=== PATIENT | male | born 1935 | race Caucasian/White ===

== ENCOUNTER 2023-10-26 16:11 | Emergency (ER) | payer OTHER, SELFPAY ==
--- NOTE | 2023-10-26 16:14 | ED_ITS ---
HPI - General Adult General Chief complaint: Extremity Pain/Injury, Lower Stated complaint: cellulitis - right leg Time Seen by Provider: 10/26/23 16:14 History of Present Illness HPI narrative: [facility] for a check up and today he noticed redness , blistering started on his right lower leg. 88-year-old man presenting to the emergency department with concern of potential infection in the right leg. This last April has pictures of an extensive cellulitis and blistering on the right lower extremity. He is worried that this might be happening again. 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 Was at the [facility] 2 days ago for checkup and says that his blood work looked good then. Today he noticed some more redness in the lower leg and some blisters which apparently popped. He does not have any pain. He thinks he excoriated or scratched open another spot. He noted some yellow drainage on his compression stockings. No fever. No chest pain. No shortness of breath. He would be unfamiliar with any diagnosis of heart failure. Shows pictures also of extensive wound at the left knee requiring wound VAC. this ultimately healed by secondary intention it appears. In reviewing medications it looks as though he has been on long-term 5 mg daily amlodipine He does wear old compression stockings. Notes that his higher pressure compression stockings are quite a wrestling match and so he does not tend to use them. Related Data Allergies Allergy/AdvReac Type Severity Reaction Status Date / Time Mulino nut Allergy Intermediate Verified 10/26/23 16:23 animals Allergy Intermediate Uncoded 10/26/23 16:23 Review of Systems Status of ROS: Reports: 6 or more systems reviewed and unremarkable except as noted in History and below Exam Narrative: Exam Narrative: Pleasant. NAD. I find Mr. Warner semi recumbent with legs below the level of his heart. Compression stockings in place. He is breathing easily. Examination of the right leg in question there is generalized edema. Pitting. This is similar to the left leg. Large well-healed scar at the medial left knee. In the lower anterior right leg there is a less than 1 cm open area of skin/ulceration. Adjacent to this are 2 subcentimeter blisters. In her left right lower leg also with a 0.5 cm open spot of skin. There are not surrounding inflammatory changes in either location. Very faint erythema and minimal calor in a band at the lower right leg. Compression stockings are rather loose. There is circular serous staining of the white stockings consistent with location of sores as noted above. Negative Homans. Const: Vital Signs, click to edit/add: Vital Signs - 24 hr 10/26/23 16:18 Temperature 97.4 F L Pulse Rate [Pulse Oximeter] 85 Respiratory Rate 18 Blood Pressure [Ri ght Upper Arm] 137/72 Pulse Oximetry 97 Oxygen Delivery Me thod Room Air Documenting provider has reviewed patient's vital signs: yes Course Vital Signs Vital signs: Initial Vital Signs Temperature 97.4 F L 10/26/23 16:18 Temperature Source Temporal Artery Scan 10/26/23 16:18 Pulse Rate 85 10/26/23 16:18 Pulse Rhythm Regular 10/26/23 16:18 Respiratory Rate 18 10/26/23 16:18 Blood Pressure 137/72 10/26/23 16:18 Blood Pressure Mean 93 10/26/23 16:18 Blood Pressure Position Sitting 10/26/23 16:18 Pulse Oximetry 97 10/26/23 16:18 Oxygen Delivery Method Room Air 10/26/23 16:18 Vital Signs Temperature 97.4 F L 10/26/23 16:18 Pulse Rate 85 10/26/23 16:18 Respiratory Rate 18 10/26/23 16:18 Blood Pressure 137/72 10/26/23 16:18 Pulse Oximetry 97 10/26/23 16:18 Oxygen Delivery Method Room Air 10/26/23 16:18 Temperature 97.4 F L 10/26/23 16:18 Pulse Rate 85 10/26/23 16:18 Respiratory Rate 18 10/26/23 16:18 Blood Pressure 137/72 10/26/23 16:18 Pulse Oximetry 97 10/26/23 16:18 Oxygen Delivery Method Room Air 10/26/23 16:18 Medical Decision Making MDM Narrative Medical decision making narrative: This appears to be less cellulitic and more related to fluid management. Symmetry of the legs is somewhat reassuring although I suppose this could be a DVT as well. I did propose doing further testing though, acknowledged that I did not think this a cellulitis, with Mr. Warner but initially thinking that it was a good idea he then declined wondering why we would do it if it had just been done 2 days ago. This appeared to be an impasse. I did place antibiotic ointment and nonstick Telfa pads and applied 4 in Gregory wrap around the foot and ankle and 6 in ankle to knee and secured with Coban. Does have adhesive reaction he reports. Did offer to do a lower extremity ultrasound particularly as I discover that he has had clots in both legs per his recounting. He declined noting that he [facility]. Would monitor closely for worsening infection and be sure to elevate and compress as able. See patient discharge plan for further discussion Medical Records Medical records reviewed: Yes I reviewed the patient's medical records Discharge Plan Discharge Clinical Impression: Edema, peripheral, Blister of right leg without infection Patient Disposition: Home w/ Parent or Adult Condition: Improved Additional Instructions: I think it is really important that you get your leg(s) up at the level of or a little above the level of your heart when you are at rest. When you are up and about you need to wear good compression stockings or these Gregory wraps. Can apply similar maybe a little kitchen assistant compression at rest/overnight. Watch for increasing redness and heat and pain as an indication of potential infection. Right now I do not believe your legs to be infected. If you see concerning changes, can start cephalexin antibiotic and then I would be re- evaluated within 2 days. I understand you do have a follow-up with Podiatry? next mid-week. I would place nonstick pads and antibiotic over these open sores daily over the next week with stocking change. Amlodipine is one medication that can contribute to lower extremity swelling although it is also excellent at controlling blood pressures. You may discuss this in the future with your primary care provider. You are only on a low dose of this medication. Cephalexin from [facility] as discussed Stand Alone Forms: [employer]th Info Instructions
[2023-10-26 16:18] VITALS: BP 137/72; PULSE 85; RESP 18; TEMP 36.3; O2SAT 97; BMI 36.5
--- OUTSIDE RECORDS SUMMARY | 2023-10-26 17:08 | XMS_ITS | Encounter Summary ---
Author Name [facility] of [facility] Organization [facility] Address [address] [place] [address] Care Team Providers Care News Intern Name Role Phone ELIZABETHONESIMOPATRICIANONA Primary Care Provider [facility] Insurance Providers: All historical and current Section Date Range: From patient's date of to the date document was created. This section includes the names of all active insurance providers for the patient. Insurance Provider Type of Coverage Plan Name Start of Policy Coverage End of Policy Coverage Group Number Member ID Insurance Provider's Telephone Number Policy Mandel's Name Patient's Relationship to Policy Mandel [facility] (WNR) MEDICARE [facility] (WNR) May 02, 2016 [id number] [phone] Duarte PANDYA PATIENT [facility] (WNR) MEDICARE [facility] (WNR) May 02, 2016 [id number] [phone] Duarte PANDYA PATIENT Selected Encounter This section includes the information on record at OR for the Encounter. Date/Time Encounter Type Encounter Description Reason Provider Source Dec 28, 2022 02:45 PM SELF CARE MNGMENT TRAINING PHYSICAL THERAPY ICD-10-CM M25.512 Pain in left shoulder DARA STUBBS Encounter Template Text not used by [facility] Assessments - Encounter Diagnoses This section includes the primary and secondary diagnoses documented for the Encounter. Date/Time Primary/Secondary Diagnosis Diagnosis Name Provider Source Dec 28, 2022 04:53 PM PRIMARY Pain in left shoulder DARA STUBBS [facility] Dec 28, 2022 04:53 PM SECONDARY Benign paroxysmal vertigo, unspecified ear GLADEDARA [facility] Plan of Treatment: Future Appointments (+ 6 months) and Future Tests (+/- 45 days) The Plan of Treatment section includes future care activities for the patient [facility] This section includes future appointments and future orders which are active, pending or scheduled. Future Appointments This section includes appointments that were scheduled to occur 6 months from the date of the Encounter, up to a maximum of 20 appointments. The data comes from all OR treatment facilities. Appointment Date/Time Appointment Type Appointme nt Facility Name Dec 30, 2022 01:30 PM AMBULATORY - REHAB MEDICIN E [facility] Jan 11, 2023 01:00 PM AMBULATORY - REHAB MEDICIN E [facility] Jan 14, 2023 03:00 PM AM[place]UL[place]ORY [place]ONE [place] [facility] Jan 17, 2023 01:00 PM AMBULATORY [place]IC[place] [facility] Jan 19, 2023 02:00 PM AMBUL[place]ORY [place] [facility] Jan 27, 2023 02:30 PM AMBULATORY - SURGERY [facility] Jan 27, 2023 03:30 PM AMBULATORY - REHAB MEDICIN E [facility] Feb 15, 2023 03:30 PM AMBULATORY - REHAB MEDICIN E [facility] Mar 09, 2023 02:30 PM AMBULATORY - REHAB MEDICIN E [facility] Mar 10, 2023 11:30 AM AMBULATORY - [place]ICINE [place] [facility] Mar 16, 2023 02:30 PM AMBULATORY - NONE [place] [facility] Apr 13, 2023 12:00 PM AMBULATORY - NONE [place] [facility] Apr 14, 2023 09:00 AM AMBULATORY - NONE [place] [facility] Apr 26, 2023 05:00 PM AMBULATORY - NONE [place] [facility] May 17, 2023 02:00 PM AMBULATORY - [place]ICINE [place] [facility] May 17, 2023 02:30 PM AMBULATORY - [place]ICINE [place] [facility] May 18, 2023 01:00 PM AMBULATORY - NONE [place] [facility] May 18, 2023 02:30 PM [facility] Jun 27, 2023 01:30 PM AMBULATORY - SURGERY [facility] Social History: Smoking Status (Most current) and Tobacco Use (All prior to encounter date) This section includes the most current, and the historical, smoking and tobacco- related health factors from the OR facility where the Encounter took place. Current Smoking Status This section includes the most current smoking, or tobacco-related health factor, from the OR facility where the Encounter took place. Date/Time Current Smoking Status Comment Facil ity Feb 01, 2022 01:00 PM VA-TOBACCO FORMER USER [facility] Tobacco Use History This section includes a history of the smoking, or tobacco-related health factors, that were collected on or before the date of the Encounter. The data comes from the OR facility where the Encounter took place. Date/Time Smoking Status/Tobacco Use Comment F acility Feb 01, 2022 01:00 PM VA-TOBACCO QUIT 15 YRS OR MORE [facility] Feb 02, 2021 01:00 PM VA-TOBACCO FORMER USER [facility] Feb 02, 2021 01:00 PM VA-TOBACCO QUIT 15 YRS OR MORE [facility] Dec 12, 2019 01:25 PM VA-TOBACCO FORMER USER [facility] Dec 12, 2019 01:25 PM VA-TOBACCO QUIT 15 YRS OR MORE [facility] Jun 21, 2018 11:16 AM VA-TOBACCO FORMER USER [facility] Jun 21, 2018 11:16 AM VA-TOBACCO QUIT 15 YRS OR MORE [facility] September 15, 2017 05:29 AM INPT NO TOBACCO USE IN LAST 30 D [facility] Jun 29, 2017 02:21 PM FORMER TOBACCO USER 7Y OR GREATE R [facility] September 16, 2016 05:29 AM INPT NO TOBACCO USE IN LAST 30 D [facility] May 06, 2016 10:21 AM FORMER TOBACCO USER 7Y OR GREATE R [facility] Mar 24, 2016 11:54 AM INPT NO TOBACCO USE IN LAST 30 D [facility] Jun 23, 2015 10:20 AM FORMER TOBACCO USER 7Y OR GREATE R [facility] Jul 04, 2014 02:41 PM FORMER TOBACCO USER 7Y OR GREATE R [facility] Dec 23, 2010 02:12 PM LIFETIME NON-TOBACCO USER [facility] Dec 18, 2010 05:07 PM FORMER TOBACCO USER 7Y OR GREATE R [facility] May 26, 2006 02:20 PM FORMER TOBACCO USER 7Y OR [facility] Advance Directives: All historical and current Section Date Range: From patient's date of to the date document was created. This section includes ALL of a patient's completed or amended OR Advance and Rescinded Directives. The entries below indicate that a directive exists for the patient, but an actual copy is not included with this document. The data comes from all OR facilities. Date Advance Directives Provider Source Jul 15, 2016 ADVANCE DIRECTIVE ARIEL TREVINO [facility] Jul 15, 2016 ADVANCE DIRECTIVE DISCUSSION MAUREEN TREVINO [facility] Mar 22, 2016 CLINICAL WARNING CRISTIANOSHELLITRIPPDYLANPRUDENCIO [facility] Feb 05, 2011 [facility] Dec 17, 2010 CLINICAL WARNING QUE [facility] Aug 26, 2003 ADVANCE DIRECTIVE ELGIN HOOPER [facility] Radiology Reports: +/- 30 days of the encounter Radiology Reports For cases when an order for radiology services may have been completed prior to the date of the Encounter, the report list includes the Radiology Reports that were completed up to 30 days before dateof the Encounter. For cases when an order for radiology services may have been completed after the date of the Encounter, the report list also includes the Radiology Reports that were completed up to30 days after date of the Encounter. The data comes from all [facility] facilities. Date/Time Radiology Report Provider Source Jan 14, 2023 02:16 PM SEGMENTALS/ELAYNE: NANDA PANDYA [id number] -[id number] Ex Date: JAN 14, 2023@14:16 Req Phys: NONA PAULINO Loc: [facility] PACT ADELAIDA PHONE (Req'g Loc) Img Loc: VASCULAR LAB PROCEDURES Service: Unknown (Case [id number] COMPLETE) SEGMENTALS/ELAYNE (VAS Detailed) CPT:60832 Reason for Study: Concern for decreased blood flow in feet Clinical History: Please note that this study requires a 60min apt. time. [place] IS NOT under investigation for COVID-19 or is COVID-19 negative Concern for decreased blood flow in both feet per [facility] podiatry. Responsible provider name and phone number to notify for critical findings if other than user placing the order and pager listed below: User placing orders pager: [phone] LAST CREATININE 1.0 (06/08/22) Report Status: Verified Date Reported: JAN 14, 2023 Date Verified: JAN 14, 2023 Recorder Of Deeds E-Sig:/ES/ADORE MOE MD Report: Bilateral Lower Extremity Ankle Brachial Indices and Segmental Pressures Comparison study: None. Technique: Brachial, ankle and great toe pressures obtained along with VPR waveforms of the lower extremities at 3 or more levels, and great toe PPG waveforms Clinical history: Reason for Study: Concern for decreased blood flow in feet Findings: Right: Arm: 122 mmHg PT at ankle: 178 mmHg DP at foot: 142 mmHg First toe: 148 mmHg ELAYNE: 1.29 TBI: 1.07 First toe PPG: Normal Left: Arm: 138 mmHg PT at ankle: 175 mmHg DP at foot: 159 mmHg First toe: 165 mmHg ELAYNE: 1.27 TBI: 1.20 First toe PPG: Normal Pulse volume recordings: Right leg: Unremarkable. Left leg: Unremarkable. Impression: 1. Right lower extremity: ELAYNE: 1.29. Normal. TBI: 1.07. Normal. PVRs: Do not suggest a focal level of arterial disease. First toe PPG: Normal. 2. Left lower extremity: ELAYNE: 1.27. Normal. TBI: 1.20. Normal. PVRs: Do not suggest a focal level of arterial disease. First toe PPG: Normal. I, Erick Moe, have reviewed the images and report. Primary Interpreting Staff: ADORE MOE MD, RADIOLOGIST (Recorder Of Deeds) Primary Interpreting Resident: ADORE ROBINS, , BACTERIOLOGY TEACHER /[place]ILL ADORE MOE [facility] Nov 30, 2022 12:59 PM MRI-BRAIN (P): MUMTAZNANDA Giorgi [id number] -[id number] M Ex Date: NOV 30, 2022@12:59 Req Phys: EXCONDE,VIANNEY E Pat Loc: [facility] NEURO EXCONDE (Req'g Loc) Img Loc: MRI IMAGING Service: Unknown (Case [id number] COMPLETE) MRI BRAIN/BRAINSTEM W/O CONTRAST (MRI Detailed) CPT:43061 Reason for Study: cerebrovascular disease eval (Case [id number] COMPLETE) MRA HEAD W/O CONTRAST (MRI Detailed) CPT:61301 (Case [id number] COMPLETE) MRI 3D SCANNER RECONSTRUCTION (MRI Detailed) CPT:73257 Contrast Media : Gadolinium Clinical History: dizziness and unsteadiness Responsible provider name and phone number to notify for critical findings: Nisha LAST CREATININE 1.0 (06/08/22) Report Status: Verified Date Reported: NOV 30, 2022 Date Verified: NOV 30, 2022 Recorder Of Deeds E-Sig:/ES/ELIAZAR ALBERT MD Report: MRI BRAIN/BRAINSTEM W/O CONTRAST, MRA HEAD W/O CONTRAST, MRI 3D SCANNER RECONSTRUCTION 11/30/2022 12:59 PM HISTORY: Cerebrovascular disease evaluation; dizziness; unsteadiness. TECHNIQUE: MRI of the brain was performed without contrast. MRA of the brain was performed without contrast, including three-dimensional image postprocessing. CONTRAST: None. COMPARISON: Comparison is made to brain MRI without contrast dated 05/20/2015. There are no prior MRA studies available for comparison. FINDINGS: BRAIN MRI: There has been no significant interval change in several scattered FLAIR hyperintense foci in the bilateral supratentorial white matter, nonspecific but likely reflecting mild chronic microangiopathic change in this 87-year-old patient. The brain parenchyma otherwise demonstrates normal signal and morphology. There is no evidence of an acute infarct. The ventricles are within normal limits in size. No intracranial hemorrhage is identified. No definite intracranial mass is appreciated on this unenhanced study. The major intracranial vascular flow voids are visualized. Hyperostosis frontalis interna was also present previously. The mastoid air cells and paranasal sinuses are well aerated. Bilateral ocular lens implants are again incidentally noted. BRAIN MRA: The imaged major intracranial arteries are patent, without evidence of proximal embolic occlusion or hemodynamically significant stenosis. It is noted that the vertebral arteries and proximal basilar artery are excluded from the imaging [id number]. A robust widely patent left posterior communicating artery is noted. No definite aneurysm is identified in the imaged intracranial compartment. Impression: 1. No evidence of acute intracranial pathology. 2. Persistent mild chronic microangiopathic change. 3. Otherwise, unremarkable brain MRI without contrast. 4. Unremarkable brain MRA without contrast, noting that the bilateral vertebral and proximal basilar arteries are excluded from the imaging [id number]. Primary Interpreting Staff: ELIAZAR ALBERT MD, RADIOLOGIST (Recorder Of Deeds) /[facility] ELIAZAR ALBERT [facility] Encounter Notes: All associated encounter notes This section contains the clinical notes associated to the Encounter. Date/Time Encounter Note(s) Provider Source Dec 28, 2022 01:41 PM PHYSICAL THERAPY I NITIAL EVALUATION NOTE: LOCAL TITLE: PT-EVALUATION NOTE STANDARD TITLE: PHYSICAL THERAPY INITIAL EVALUATION NOTE DATE OF NOTE: DEC 28, 2022@13:41 ENTRY DATE: DEC 28, 2022@13:41:27 AUTHOR: DARA STUBBS EXP COSIGNER: URGENCY: STATUS: COMPLETED PT tx: PT eval- mod complex 30', SCM 15, PT dx: vertigo, L shoulder pain, leg wounds Evaluation Date: Nov # of VISITS: 1 # of CX/NS: 0 Cataño Screen Due: NO Name Used: Killian SUBJECTIVE: Relevant PMH/personal factors impacting rehab: Active problems - Computerized Problem List is the source for the followin. Hypertension (SNOMED CT 32019912) - 24 HR BP Monitor October 2020 - avg BP 124/68, avg HR 68 2. Simple obesity (SNOMED CT 201300876) 3. Gastroesophageal reflux disease (SNOMED CT 875054817) 4. IMPOTENCE, ORGANIC 5. Asthma (SNOMED CT 480101790) 6. ANEMIA NOS 7. HEMATURIA 8. Sleep apnea (SNOMED CT 97417865) 9. Empyema, Pleural * 10. Bigeminy 11. Bradycardia * 12. Cardiomyopathy (SNOMED CT 52901960) 13. Arrhythmia (SNOMED CT 627058467) 14. Cataract nos 15. Pseudophakia 16. Benign prostatic hyperplasia (SNOMED CT 738033709) 17. Dizziness and giddiness 18. Gomez's esophagus 19. Atrial fibrillation 20. COPD - Chronic obstructive pulmonary disease Chief Concern: Pt is a 87 year old [place] who presents to PT with concerns for L shoulder pain, vertigo, and leg issues/weakness. 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 Pt felt like he never got his balance back from vertigo issues. Feels woozy when he gets up on his feet. States he has no ambition to be active. Had appt [facility] in [facility] d/t ongoing foot problems. Had a case of cellulitis in R leg where he mentions he almost had to amputate his leg. L arm hurt after second shot of COVID about 2 years ago. L arm pain comes in cycles. IR of L shoulder is very restricted Pt was unclear about living situation Dizzy spells last 20-30 seconds. Had dizziness turning to R. Hasn't had this sensation in 2-3 weeks. Pain: Location/Description: Aching pain in L arm Intensity: 3-4/10 Worst: 10 Aggravating Factors: lifting it, comes and goes. Relieving Factors: had injection L arm. Previous intervention: none for shoulder, previous ANGELO with success Social History/Health Habits: not stated Red Flags: No personal history of cancer. Denies any UE or LE progressive weakness, unexplained weight loss, loss of bowel/bladder control, pain with rest, fevers, chills, infections. Patient's Goal: RELEVANT IMAGING: XR L/R knee/ankle completed , see report for full details. Notable for: OBJECTIVE: - PROMIS 6B: Next Session - LEFS: Next Session OBSERVATION: swelling in karen LE, compression socks, R 2nd hammer toe, signs of venous insufficiency including mild hemosiderin staining karen, karen great toenail infection Decreased sensation below mid-lakhani bilaterally Idan-Hallpike: - karen Roll test: - karen Shoulder ROM: L R Flexion: 150 170 Extension: 30 45 Abduction: 100 170 IR: Iliac crest, L3 ER: C7, T2 MMT: L R Flexion:4/5, 4+/5 Abduction: 4-/5, 4+/5 PALPATION: PT INTERVENTIONS: risks/benefits reviewed and verbal consent obtained for interventions Self-Care Training: - education on self-management strategies and activity modifications including sleeping positions, frequent position changes, benefits of aerobic/graded activity for management of pain conditions - Discussed with anticipated symptom eitiology, POC going forward and role of initial HEP. - Explained likely resolution of vertigo symptoms and to self-refer to PT if symptoms re-arise - Explained likelihood of L shoulder OA based on clinical findings with good rotator cuff integrity - Explained putting socks on in bed before swelling can get too intense as pt is currently up and about for 1-2 hours before donning socks. Response to Treatment: Appreciative of education of conditions, agreeable to more evaluation being conducted next session GOALS: Additional goals to be established at next session. 1. Pt will be I in HEP for self-management of knee pain in 6-8 visits. 2. Pt will be able to improve L shoulder flexion to 165 to more easily complete ADL's around house. ASSESSMENT: is a 87 y/o M presenting to PT with concern for vertigo, L arm pain, and bilateral leg integumentary complaints. Pt subjective appears to be BPPV in nature but has resolved in the few weeks since recurrance. 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 LE observed and obvious signs of venous insufficiency present, with compression socks donned. Extra time dedicated to allowing patient to explain PMH including bout of cellulitis and foot issues. Impairments noted in ROM, tenderness to palpation, and muscle imbalances impacting 's functional independence and perform ADLs. Shoe insert ordered from prosthetics per [facility] podiat[facility] request. No contraindications to ongoing PT to address above impairments and improve QOL. REHAB POTENTIAL: fair; based on chronicity of symptoms and patient motivation CLINICAL PRESENTATION: evolving PLAN: Continue PT x 4-6 sessions, 1x/wk to every other week for ther ex, ther act, manual therapy prn and patient education. [place] agreeable to follow up in clinic in 1 week. - Next Session: - manual therapy for improved joint mobility/ROM as indicated - progressive LE strength and proprioceptive training - orthostatic hypotension - Review goals, social habits - Review shoulder, investigate if any leg pain (pt denied today) -Present note will serve as d/c note if vet does not present for follow-up within 8 wks Patient Education on Treatment Plan: PT role, POC, rehab expectations. Patient indicated readiness to learn, verbalizes understanding, agreement and satisfaction with the treatment plan. Denies further questions. /vincenzo/ DARA STUBBS PHYSICAL THERAPIST Signed: 12/28/2022 16:54 DARA STUBBS [facility]
--- OUTSIDE RECORDS SUMMARY | 2023-10-26 17:08 | XMS_ITS | Clinical Summary ---
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 Role Phone Kehinde Raman MD Primary Care Provider [phone] Allergies Active Allergy Reactions Criticality Noted Date Comments Influenza Virus Vaccines 05/23/2008 Medications Medication Sig Dispensed Refills Start Date End Date Status DOXAZOSIN 8 MG TAB 1 tablet at HS daily 0 05/27/2008 Active TRIAMCINOLONE ACETONIDE 0.1 % LOTION apply locally to irratated area BID as needed 0 05/27/2008 Active OMEPRAZOLE 20 MG CAP, DELAYED RELEASE one casule daily 30 min before a meal 0 05/27/2008 Active MOMETASONE 220 MCG (120 DOSES) BREATH ACTIVATED POWDER AEROSOL one puff every day, rinse after using, do not breathe out through the inhaler, do not wash inhaler 0 05/27/2008 Active ALBUTEROL 90 MCG/ACTUATION AEROSOL INHALER inhale 2 puffs every QID as needed 0 05/27/2008 Active FORMOTEROL FUMARATE 12 MCG CAPS WITH INHALATION DEVICE inhale one capsule every 12 hours 0 05/27/2008 Active IBUPROFEN 200 MG TAB 2 tablets daily, prn 0 05/27/2008 Active ASPIRIN 81 MG TAB, DELAYED RELEASE 1 tablet daily 0 05/27/2008 Activ e LOSARTAN 100 MG TABIndications:HTN (hypertension) take1 tablet daily 90 4 06/04/2008 Active Active Problems Problem Noted Date Diagnosed Date Unspecified sleep apnea 05/27/2008 HTN (hypertension) 05/27/2008 Prediabetes 05/27/2008 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 Alcohol Use Standard Drinks/Week Comments No 0 (1 standard drink = 0.6 oz pur e alcohol) Sex and Gender Information Value Date Recorded Sex Assigned at Not on file Gender Identity Not on file Sexual Orientation Not on file Obstetrics History Last Filed Vital Signs Vital Sign Reading Time Taken Comments Blood Pressure 132/66 03/22/2016 1:00 PM SUPERVISORY [employer] INTERCEPT CONTROLLER manual cuff Pulse 49 03/22/2016 1:00 PM SUPERVISORY [employer] INTERCEPT CONTROLLER Temperature 36.5 ??C (97.7 ??F) 03/22/2016 1 :00 PM SUPERVISORY AIR INTERCEPT CONTROLLER Respiratory Rate - - Oxygen Saturation 99% 03/22/2016 1:0 0 PM SUPERVISORY AIR INTERCEPT CONTROLLER Inhaled Oxygen Concentration - - Weight 121.1 kg (267 lb) 03/22/2016 1:0 0 PM SUPERVISORY [employer] INTERCEPT CONTROLLER declined to remove shoes Height 182.9 cm (6') 07/09/2008 2:56 PM CDT Body Mass Index 36.21 07/09/2008 2:56 PM CDT Plan of Treatment Health Maintenance Due Date Last Done Comments Tdap 1948 Depression screening for age 12+ 1949 BMI (ht and wt on same day) for age 18+ 1955 Tetanus booster 1957 Zoster (shingles) series for age 50+ (1 of 2) 03/25/19 87 Medicare Wellness for age 65+ 2002 Pneumococcal series for age 65+ (1 of 1 - PCV) 002 COVID-19 vaccine series ( - 2022- season) 3 Influenza for age 65+ 01/01/2024 Advance Directives Documents on File Type Date Recorded 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
--- OUTSIDE RECORDS SUMMARY | 2023-10-26 17:08 | XMS_ITS | Encounter Summary ---
Author Name [facility] [employer] Organization [facility] [employer] Address [address] [place] [address] Care Team Providers Care Director Business Name Role Phone NONA PAULINO Primary Care Provider [facility] Insurance Providers: All historical and current Section Date Range: From patient's date of to the date document was created. This section includes the names of all active insurance providers for the patient. Insurance Provider Type of Coverage Plan Name Start of Policy Coverage End of Policy Coverage Group Number Member ID Insurance Provider's Telephone Number Policy Mandel's Name Patient's Relationship to Policy Mandel [facility] (WNR) MEDICARE ADVANTAGE [facility] (R) May 02, 2016 [id number] [phone] Duarte PANDYA PATIENT [facility] (WNR) MEDICARE ADVANTAGE [facility] (WNR) May 02, 2016 [id number] [phone] Duarte PANDYA PATIENT Selected Encounter This section includes the information on record at OR for the Encounter. Date/Time Encounter Type Encounter Description Reason Provider Source Nov 04, 2022 03:00 PM OFFICE O/P EST MOD 30-39 MIN CARDIOLOGY ICD-10-CM R42 Dizziness and giddiness ACOSTA BRISCOEKATAKRISHN A NARAS [facility] Encounter Template Text not used by OR Assessments - Encounter Diagnoses This section includes the primary and secondary diagnoses documented for the Encounter. Date/Time Primary/Secondary Diagnosis Diagnosis Name Provider Source Nov 05, 2022 01:22 PM PRIMARY Dizziness and MIRIAM Hurst [facility] Plan of Treatment: Future Appointments (+ 6 months) and Future Tests (+/- 45 days) The Plan of Treatment section includes future care activities for the [facility] This section includes future appointments and future orders which are active, pending or scheduled. Future Appointments This section includes appointments that were scheduled to occur 6 months from the date of the Encounter, up to a maximum of 20 appointments. The data comes from all [place] treatment facilities. Appointment Date/Time Appointment Type Appointme nt Facility Name Nov 17, 2022 03:00 PM AM[place]ORY [place] [facility] Nov 23, 2022 01:00 PM [facility] Nov 25, 2022 11:30 AM [facility] Nov 30, 2022 01:00 PM [facility]ORY - [place]ONE [place] [facility] Dec 28, 2022 02:45 PM AMBULATORY - REHAB MEDICIN E [facility] Dec 30, 2022 01:30 PM AMBULATORY - REHAB MEDICIN E [facility] Jan 11, 2023 01:00 PM AMBULATORY - REHAB MEDICIN E [facility] Jan 14, 2023 03:00 PM AM[place]ORY [place]ONE [place] [facility] Jan 17, 2023 01:00 PM [place] [facility] Jan 19, 2023 02:00 PM [place] [facility] Jan 27, 2023 02:30 PM [place] [facility] Jan 27, 2023 03:30 PM AMBULATORY - REHAB MEDICIN E [facility] Feb 15, 2023 03:30 PM AMBULATORY - REHAB MEDICIN E [facility] Mar 09, 2023 02:30 PM AMBULATORY - REHAB MEDICIN E [facility] Mar 10, 2023 11:30 AM [place] [facility] Mar 16, 2023 02:30 PM [place]ORY [place]ONE [place] [facility] Apr 13, 2023 12:00 PM [place]ORY [place]ONE [place] [facility] Apr 14, 2023 09:00 AM AMBULATORY - NONE [facility] Apr 26, 2023 05:00 PM AMBULATORY - NONE [facility] Active, Pending, and Scheduled Orders This section includes a listing of several types of active, pending, and scheduled orders, including clinic medications orders, diagnostic test orders, procedure orders and consult orders; where the start date of the order is 45 days before the date of the Encounter or 45 days after the date of theEncounter. The data comes from all [facility] facilities. Test Date/Time Test Type Test Details Facility Name Oct 09, 2022 12:00 AM Laboratory - Chemi stry Order CBC BLOOD SP ONCE [facility] Oct 09, 2022 12:00 AM Laboratory - Chemi stry Order B 12 [facility] Oct 09, 2022 12:00 AM Laboratory - Chemi stry Order FOLATE [facility] Oct 09, 2022 12:00 AM Laboratory - Chemi stry Order IRON GROUP [facility] Oct 09, 2022 12:00 AM Laboratory - Chemi stry Order BASIC METABOLIC PANEL+MG PLASMA [facility] Vital Signs: All taken on the encounter date This section contains inpatient and outpatient Vital Signs collected on the date of the Encounter. Date/Time Temperature Pulse Blood Pressure Respiratory Rate SP02 Pain Height Weight Body Mass Index Source Nov 04, 2022 02:28 PM 97.9 F 66 /min 117/63 mm[Hg] 16 /min 96 % [address] [facility] Social History: Smoking Status (Most [...] Facil ity Feb 01, 2022 01:00 PM OR-TOBACCO QUIT [address] [facility] Tobacco Use History This section includes a history of the smoking, or tobacco-related health factors, that were collected on or before the date of the Encounter. The data comes from the OR facility where the Encounter took place. Date/Time Smoking Status/Tobacco Use Comment F acility Feb 01, 2022 01:00 PM VA-TOBACCO QUIT [address] [facility] Feb 02, 2021 01:00 PM VA-TOBACCO FORMER USER [facility] Feb 02, 2021 01:00 PM VA-TOBACCO QUIT [address] [facility] Dec 12, 2019 01:25 PM VA-TOBACCO FORMER USER [facility] Dec 12, 2019 01:25 PM VA-TOBACCO QUIT [address] [facility] Jun 21, 2018 11:16 AM VA-TOBACCO FORMER USER [facility] Jun 21, 2018 11:16 AM VA-TOBACCO QUIT [address] [facility] September 15, 2017 05:29 AM INPT NO TOBACCO USE IN LAST 30 D [facility] Jun 29, 2017 02:21 PM FORMER TOBACCO USER 7Y OR GREATE R [facility] September 16, 2016 05:29 AM INPT NO TOBACCO USE IN LAST 30 D [facility] May 06, 2016 10:21 AM FORMER TOBACCO USER 7Y OR GREATE R [facility] Mar 24, 2016 11:54 AM INPT NO TOBACCO USE IN LAST 30 D [facility] Jun 23, 2015 10:20 AM FORMER TOBACCO USER 7Y OR GREATE R [facility] Jul 04, 2014 02:41 PM FORMER TOBACCO USER 7Y OR GREATE R [facility] Dec 23, 2010 02:12 PM LIFETIME NON-TOBACCO USER [facility] Dec 18, 2010 05:07 PM FORMER TOBACCO USER 7Y OR GREATE R [facility] May 26, 2006 02:20 PM FORMER TOBACCO USER 7Y OR GREATE R [facility] Advance Directives: All historical and current Section [...] Jul 15, 2016 ADVANCE DIRECTIVE ARIEL TREVINO [facility] Jul 15, 2016 ADVANCE DIRECTIVE DISCUSSION MAUREEN TREVINO [facility] Mar 22, 2016 CLINICAL WARNING PRUDENCIO TYLER [facility] Feb 05, 2011 [facility] Dec 17, 2010 CLINICAL WARNING [facility] Aug 26, 2003 ADVANCE DIRECTIVE ELGIN HOOPER [facility] Radiology Reports: +/- 30 days of the [...] the Encounter. The data comes from all OR treatment facilities. Date/Time Radiology Report Provider Source Nov 30, 2022 12:59 PM MRI-BRAIN (P): NANDA PANDYA [id number] M Ex Date: NOV 30, 2022@12:59 Req Phys: VIANNEY MCMANUS Loc: [facility] NEURO EXCONDE (Req'g Loc) Img Loc: MRI IMAGING Service: Unknown (Case [id number] COMPLETE) MRI BRAIN/BRAINSTEM W/O CONTRAST (MRI Detailed) CPT:20465 Reason for Study: cerebrovascular disease eval (Case [id number] COMPLETE) MRA HEAD W/O CONTRAST (MRI Detailed) CPT:02337 (Case [id number] COMPLETE) MRI 3D SCANNER RECONSTRUCTION (MRI Detailed) CPT:58832 Contrast Media : Gadolinium Clinical History: dizziness and unsteadiness Responsible provider name and phone number to notify for critical findings: Excberkleye LAST CREATININE 1.0 (06/08/22) Report Status: Verified Date Reported: NOV 30, 2022 Date Verified: NOV 30, 2022 Mig Tig Welder E-Sig:/ES/ELIAZAR ALBERT MD Report: MRI BRAIN/BRAINSTEM W/O [...] basilar artery are excluded from the imaging [id number]. A robust widely patent left posterior communicating artery is noted. No definite aneurysm is identified in the imaged intracranial compartment. Impression: 1. No evidence of acute intracranial pathology. 2. Persistent mild chronic microangiopathic change. 3. Otherwise, unremarkable brain MRI without contrast. 4. Unremarkable brain MRA without contrast, noting that the bilateral vertebral and proximal basilar arteries are excluded from the imaging [id number]. Primary Interpreting Staff: ELIAZAR ALBERT MD, RADIOLOGIST (Mig Tig Welder) /[facility] ELIAZAR ALBERT [facility] Encounter Notes: All associated encounter notes This section contains the clinical notes associated to the Encounter. Date/Time Encounter Note(s) Provider Source Nov 16, 2022 09:00 AM ADDENDUM: LOCAL TITLE: Addendum STANDARD TITLE: ADDENDUM DATE OF NOTE: NOV 16, 2022@09:00:27 ENTRY DATE: NOV 16, 2022@09:00:29 AUTHOR: GERALD RICHARDS EXP COSIGNER: URGENCY: STATUS: COMPLETED DC'd AMIODARONE 200mg per day per pt report that it is a old dose. Unable to clarify with prescriber. /vincenzo/ Gerald Richards, Pharm.D PHARMACIST Signed: 11/16/2022 09:01 Receipt Acknowledged By: 05/17/2023 13:16 /vincenzo/ MARISELA BRISCOE MD STAFF PHYSICIAN - CARDIAC COOPERATIVE EDUCATION COORDINATOR --- Original Document --- 11/04/22 CARDIOLOGY ELECTROPHYSIOLOGY NOTE: Cardiac/Dysrhythmia Clinic Note Nurses Notes Reviewed and Agree Chief Complaint/Reason for visit: Dizziness and PVCs History of present illness: 87-year-old male patient who has history of papillary muscle PVCs status post ablation, came to me with symptoms of dizziness. Patient had significant amount of PVCs seen after several years and he was started on amiodarone 200 mg a day. His PVCs were completely suppressed except he has symptoms of dizziness which seems to occur when patient is upright and walking. He has not had any rodo syncopal episodes. No history of any shortness of breath otherwise. He attributes to some extent his dizziness may be related to using amiodarone. He is also diagnosed to have peripheral neuropathy and is seen by neurologist for the same symptoms of dizziness who has ordered head CT and it is unclear at this point of time the etiology. Review of Systems: Constitutional: denies Derm: denies HEENT: denies CV: denies Resp: denies GI: denies Musculoskeletal: joint pain Neuro: dizziness : denies Pertinent Past Medical History: Hypertension (SCT 89878378) Simple obesity (SCT 214233689) Gastroesophageal reflux disease (SCT 235IMPOTENCE, ORGANIC (ICD-9-CM 607.84) Asthma (SCT 237793043) ANEMIA NOS (ICD-9-CM 285.9) HEMATURIA (ICD-9-CM 599.7) Sleep apnea (SCT 66228139) Empyema, Pleural (ICD-9-CM 510.9) Bigeminy (ICD-9-CM 427.89) Bradycardia (ICD-9-CM 427.89) Cardiomyopathy (SCT 16256058) Arrhythmia (SCT 096255382) Cataract nos (ICD-9-CM 366.9) Pseudophakia (ICD-9-CM V43.1) Benign prostatic hyperplasia (SCT 442739869) Dizziness and giddiness (SCT 503064950) Gomez's esophagus (SCT 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 AMIODARONE HCL (PACERONE) 100MG TAB TAKE ONE TABLET BY ACTIVE MOUTH EVERY DAY FOR HEART RHYTHM AMIODARONE HCL (PACERONE) 200MG TAB TAKE ONE TABLET BY PENDING MOUTH EVERY DAY FOR HEART ARRHYTHMIA AMLODIPINE BESYLATE 5MG TAB TAKE ONE TABLET BY MOUTH DAILY ACTIVE DOXAZOSIN MESYLATE 2MG TAB TAKE ONE TABLET BY MOUTH AT ACTIVE BEDTIME FOR BPH (BENIGN PROSTATIC HYPERPLASIA) FAMOTIDINE 20MG TAB TAKE ONE TABLET BY MOUTH TWICE A DAY ACTIVE TO DECREASE STOMACH ACID FINASTERIDE 1MG TAB TAKE TWO TABLETS BY MOUTH EVERY DAY ACTIVE (S) FOR PROSTATE FLUTICAS 250/SALMETEROL 50 INHL DISK 60 INHALE 1 PUFF BY ACTIVE INHALATION TWICE A DAY TO PREVENT TROUBLE BREATHING - RINSE MOUTH AFTER USING. FLUTICASONE PROP 50MCG 120D NASAL INHL SPRAY 1 SPRAY IN ACTIVE EACH NOSTRIL TWICE A DAY USE REGULARLY FOR RELIEF OF ALLERGIES/CONGESTION GLOVE VINYL LARGE PWDR-FREE NONSTERILE USE GLOVE(S) ACTIVE DIRECTED LACTOBACILLUS ACIDOPHILUS TAB TAKE 1 TABLET BY MOUTH EVERY ACTIVE DAY (PROBIOTIC) LOSARTAN 50MG TAB TAKE ONE TABLET BY MOUTH EVERY DAY FOR ACTIVE (S) BLOOD PRESSURE POLYETHYLENE GLYCOL 3350 ORAL PWDR TAKE 17 GRAMS BY MOUTH ACTIVE EVERY DAY FOR CONSTIPATION - MIX IN 4 TO 8 OUNCES OF LIQUID DIRECTED*USE COVER TO MEASURE POWDER* SODIUM CHLORIDE 0.65% SOLN NASAL SPRAY SPRAY 2 SPRAYS IN ACTIVE EACH NOSTRIL FOUR TIMES A DAY TIOTROPIUM 18MCG INHL CAP 30 INHALE ONE CAPSULE IN INHALER ACTIVE BY INHALATION EVERY DAY TO PREVENT TROUBLE BREATHING VANICREAM TOP CREAM APPLY THIN LAYER TOPICALLY TWICE A DAY ACTIVE FOR DRY SKIN Non-VA CHOLECALCIFEROL TAB MOUTH EVERY DAY ACTIVE Non-VA DOCUSATE CAP,ORAL 250MG MOUTH EVERY MORNING ACTIVE Non-VA IBUPROFEN 400MG TAB 400MG MOUTH TWICE A DAY ACTIVE NEEDED Non-VA POLYETHYLENE GLYCOL 3350 POWDER,ORAL MOUTH ACTIVE Non-VA POLYVINYL ALCOHOL 1.4% SOLN 15ML (UD) 1 DROP BOTH ACTIVE EYES NEEDED Non-VA SODIUM CHLORIDE 0.65% SOLN,SPRAY,NASAL 2 SPRAYS ACTIVE EACH NOSTRIL TWICE A DAY NEEDED PHYSICAL EXAM: General: Not in distress; Orthostatic BP was assessed and there was a maximum of 15 mm blood pressure drop in upright position with heart rate rise of 12 bpm and he had mild symptoms of dizziness but otherwise no significant findings. Vitals: BP: 117/63 (11/04/2022 14:28) P: 66 (11/04/2022 14:28) R: 16 (11/04/2022 14:28) T: 97.9 F [36.6 C] (11/04/2022 14:28) WT: 277.2 lb [125.74 kg] (08/10/2022 13:34) Pain: 0 (11/04/2022 14:) Oral/Throat: Moist and clear. Neck/Thyroid: no JVD. Cardiac: RRR, No murmurs, gallops, rubs, S1 S2. Chest/Lungs: Bilaterally clear. Extremities: Trace edema Assessment: Dizziness and history of peripheral neuropathy otherwise no clear etiology has been established. Question is whether he has some chronotropic incompetence as it seems like his heart rates found on the histograms seem to have a very narrow window. Amiodarone is the etiology for dizziness although it is possible if neurological reason is the cause for the side effect reducing the dose should improve. Plan: We will reduce the amiodarone dose to 200 mg once a day, bladder treadmill ECG. I warned patient whether he can do it because of his underlying knee problems and he said he could slowly walk on the treadmill. Reducing Clement's protocol to assess the heart rate response to exercise. If truly has chronotropic incompetence may consider potentially Biotronik CLS pacemaker in the situation. Medication Changes: /es/ MARISELA BRISCOE MD STAFF PHYSICIAN - CARDIAC COOPERATIVE EDUCATION COORDINATOR Signed: 11/05/2022 13:22 11/05/2022 ADDENDUM STATUS: COMPLETED Blood pressure was checked in the clinic for orthostatics demonstrated no orthostatic blood pressure drop. /es/ MARISELA BRISCOE MD STAFF PHYSICIAN - CARDIAC COOPERATIVE EDUCATION COORDINATOR Signed: 11/05/2022 13:22 11/09/2022 ADDENDUM STATUS: COMPLETED Please clarify Amiodarone dose. Per this note; Plan: We will reduce the amiodarone dose to 200 mg once a day But pt was on 200mg dose for a couple years already. Then 2 amiodarones Rx's came thru. A renewal for 200mg per day. And a new Rx for 100mg per day Rx. Pt told processing Pharmacist the current dose was the 100mg per day Rx. DC the 200mg Rx that is pending? Pt picked up the 100mg per day Rx 11/04/22. /vincenzo/ Gerald Richards, Pharm.D PHARMACIST Signed: 11/09/2022 10:29 Receipt Acknowledged By: * AWAITING SIGNATURE * MARISELA BRISCOE JASON R [facility] Nov 04, 2022 02:29 PM INTERNAL MEDICINE OUTPATIENT NOTE: LOCAL TITLE: MEDICINE CLINIC NURSING NOTE STANDARD TITLE: INTERNAL MEDICINE OUTPATIENT NOTE DATE OF NOTE: NOV 04, 2022@14:29 ENTRY DATE: NOV 04, 2022@14:29:26 AUTHOR: ZEINAB SALCEDO EXP COSIGNER: URGENCY: STATUS: COMPLETED MEDICINE CLINIC NURSING NOTE Has ADDENDA TYPE OF VISIT: Appointment Check In Type of appointment: In-person appointment REASON FOR VISIT: rtc ALLERGIES: BRAZIL NUTS (Jun 12, 2006) ANIMALS (Dec 17, 2010) VITAL SIGNS: Blood Pressure: 117/63 (11/04/2022 14:28) Pulse: 66 (11/04/2022 14:28) Respiration: 16 (11/04/2022 14:28) Temperature: 97.9 F [36.6 C] (11/04/2022 14:28) Weight: 277.2 lb [125.74 kg] (08/10/2022 13:34) Height: 65 in [165.1 cm] (11/04/2022 14:28) BMI: 46.2 O2 Sat: 96% (11/04/2022 14:28) Pain: 0 (11/04/2022 14:28) PAIN SCREEN: Patient is not having significant pain that they wish to discuss with their provider today. MEDICATION Over the Counter/Herbal Medications: The patient states that they take some outside medications and/or herbals. /es/ JESS SALAZAR LPN Signed: 11/04/2022 14:30 11/04/2022 ADDENDUM STATUS: COMPLETED Orthostatic BP&P: 1515: Laying- BP:148/82 P:62 1517: Standing- BP:132/78 P: 73 1519: Standing- BP: 137/81 P: 72 /vincenzo/ SVITLANA VALENTINE LPN LPN Signed: 11/04/2022 15:[address] [facility] Nov 04, 2022 01:14 PM CARDIOLOGY DIAGNOSTIC STUDY NOTE: LOCAL TITLE: CARDIOLOGY ELECTROPHYSIOLOGY NOTE STANDARD TITLE: CARDIOLOGY DIAGNOSTIC STUDY NOTE DATE OF NOTE: NOV 04, 2022@13:14 ENTRY DATE: NOV 05, 2022@13:14:15 AUTHOR: SHERRON BRISCOE COSIGNER: URGENCY: STATUS: COMPLETED CARDIOLOGY ELECTROPHYSIOLOGY NOTE Has ADDENDA Cardiac/Dysrhythmia Clinic Note Nurses Notes Reviewed and Agree Chief Complaint/Reason for visit: Dizziness and PVCs History of present illness: 87-year-old male patient who has history of papillary muscle PVCs status post ablation, came to me with symptoms of dizziness. Patient had significant amount of PVCs seen after several years and he was started on amiodarone 200 mg a day. His PVCs were completely suppressed except he has symptoms of dizziness which seems to occur when patient is upright and walking. He has not had any rodo syncopal episodes. No history of any shortness of breath otherwise. He attributes to some extent his dizziness may be related to using amiodarone. He is also diagnosed to have peripheral neuropathy and is seen by neurologist for the same symptoms of dizziness who has ordered head CT and it is unclear at this point of time the etiology. Review of Systems: Constitutional: denies Derm: denies HEENT: denies CV: denies Resp: denies GI: denies Musculoskeletal: joint pain Neuro: dizziness : denies Pertinent Past Medical History: Hypertension (SCT 07799769) Simple obesity (SCT 169579989) Gastroesophageal reflux disease (SCT 235IMPOTENCE, ORGANIC (ICD-9-CM 607.84) Asthma (SCT 763531728) ANEMIA NOS (ICD-9-CM 285.9) HEMATURIA (ICD-9-CM 599.7) Sleep apnea ([facility] [id number]) Empyema, Pleural (ICD-9-CM 510.9) Bigeminy (ICD-9-CM 427.89) Bradycardia (ICD-9-CM 427.89) Cardiomyopathy ([facility] 00816097) Arrhythmia ([facility] 123443820) Cataract nos (ICD-9-CM 366.9) Pseudophakia (ICD-9-CM V43.1) Benign prostatic hyperplasia ([facility] [id number]) Dizziness and giddiness ([facility] [id number]) Gomez's esophagus ([facility] [id number]) Atrial fibrillation ([facility] 46307807) COPD - Chronic obstructive pulmonary disease ([facility] 99045535) Allergies: BRAZIL NUTS (Jun 12, 2006) ANIMALS (Dec 17, 2010) Medications: Active Outpatient Medications (including Supplies): ALBUTEROL 90MCG (CFC-F) 200D ORAL INHL INHALE 2 PUFFS BY ACTIVE INHALATION FOUR TIMES A DAY NEEDED FOR BREATHING SHAKE WELL (FOR IMMEDIATE RELIEF) REPLACES LEVALBUTEROL. AMIODARONE HCL (PACERONE) 100MG TAB TAKE ONE TABLET BY ACTIVE MOUTH EVERY DAY FOR HEART RHYTHM AMIODARONE HCL (PACERONE) 200MG TAB TAKE ONE TABLET BY PENDING MOUTH EVERY DAY FOR HEART ARRHYTHMIA AMLODIPINE BESYLATE 5MG TAB TAKE ONE TABLET BY MOUTH DAILY ACTIVE DOXAZOSIN MESYLATE 2MG TAB TAKE ONE TABLET BY MOUTH AT ACTIVE BEDTIME FOR BPH (BENIGN PROSTATIC HYPERPLASIA) FAMOTIDINE 20MG TAB TAKE ONE TABLET BY MOUTH TWICE A DAY ACTIVE TO DECREASE STOMACH ACID FINASTERIDE 1MG TAB TAKE TWO TABLETS BY MOUTH EVERY DAY ACTIVE (S) FOR PROSTATE FLUTICAS 250/SALMETEROL 50 INHL DISK 60 INHALE 1 PUFF BY ACTIVE INHALATION TWICE A DAY TO PREVENT TROUBLE BREATHING - RINSE MOUTH AFTER USING. FLUTICASONE PROP 50MCG 120D NASAL INHL SPRAY 1 SPRAY IN ACTIVE EACH NOSTRIL TWICE A DAY USE REGULARLY FOR RELIEF OF ALLERGIES/CONGESTION GLOVE VINYL LARGE PWDR-FREE NONSTERILE USE GLOVE(S) ACTIVE DIRECTED LACTOBACILLUS ACIDOPHILUS TAB TAKE 1 TABLET BY MOUTH EVERY ACTIVE DAY (PROBIOTIC) LOSARTAN 50MG TAB TAKE ONE TABLET BY MOUTH EVERY DAY FOR ACTIVE (S) BLOOD PRESSURE POLYETHYLENE GLYCOL 3350 ORAL PWDR TAKE 17 GRAMS BY MOUTH ACTIVE EVERY DAY FOR CONSTIPATION - MIX IN 4 TO 8 OUNCES OF LIQUID DIRECTED*USE COVER TO MEASURE POWDER* SODIUM CHLORIDE 0.65% SOLN NASAL SPRAY SPRAY 2 SPRAYS IN ACTIVE EACH NOSTRIL FOUR TIMES A DAY TIOTROPIUM 18MCG INHL CAP 30 INHALE ONE CAPSULE IN INHALER ACTIVE BY INHALATION EVERY DAY TO PREVENT TROUBLE BREATHING VANICREAM TOP CREAM APPLY THIN LAYER TOPICALLY TWICE A DAY ACTIVE FOR DRY SKIN Non-VA CHOLECALCIFEROL TAB MOUTH EVERY DAY ACTIVE Non-VA DOCUSATE CAP,ORAL 250MG MOUTH EVERY MORNING ACTIVE Non-VA IBUPROFEN 400MG TAB 400MG MOUTH TWICE A DAY ACTIVE NEEDED Non-VA POLYETHYLENE GLYCOL 3350 POWDER,ORAL MOUTH ACTIVE Non-VA POLYVINYL ALCOHOL 1.4% SOLN 15ML (UD) 1 DROP BOTH ACTIVE EYES NEEDED Non-VA SODIUM CHLORIDE 0.65% SOLN,SPRAY,NASAL 2 SPRAYS ACTIVE EACH NOSTRIL TWICE A DAY NEEDED PHYSICAL EXAM: General: Not in distress; Orthostatic BP was assessed and there was a maximum of 15 mm blood pressure drop in upright position with heart rate rise of 12 bpm and he had mild symptoms of dizziness but otherwise no significant findings. Vitals: BP: 117/63 (11/04/2022 14:28) P: 66 (11/04/2022 14:28) R: 16 (11/04/2022 14:28) T: 97.9 F [36.6 C] (11/04/2022 14:28) WT: 277.2 lb [125.74 kg] (08/10/2022 13:34) Pain: 0 (11/04/2022 14:28) Oral/Throat: Moist and clear. Neck/Thyroid: no JVD. Cardiac: RRR, No murmurs, gallops, rubs, S1 S2. Chest/Lungs: Bilaterally clear. Extremities: Trace edema Assessment: Dizziness and history of peripheral neuropathy otherwise no clear etiology has been established. Question is whether he has some chronotropic incompetence as it seems like his heart rates found on the histograms seem to have a very narrow window. Amiodarone is the etiology for dizziness although it is possible if neurological reason is the cause for the side effect reducing the dose should improve. Plan: We will reduce the amiodarone dose to 200 mg once a day, bladder treadmill ECG. I warned patient whether he can do it because of his underlying knee problems and he said he could slowly walk on the treadmill. Reducing Clement's protocol to assess the heart rate response to exercise. If truly has chronotropic incompetence may consider potentially Biotronik CLS pacemaker in the situation. Medication Changes: /vincenzo/ MARISELA BRISCOE MD STAFF PHYSICIAN - CARDIAC COOPERATIVE EDUCATION COORDINATOR Signed: 11/05/2022 13:22 11/05/2022 ADDENDUM STATUS: COMPLETED Blood pressure was checked in the clinic for orthostatics demonstrated no orthostatic blood pressure drop. /vincenzo/ MARISELA BRISCOE MD STAFF PHYSICIAN - CARDIAC COOPERATIVE EDUCATION COORDINATOR Signed: 11/05/2022 13:22 11/09/2022 ADDENDUM STATUS: COMPLETED Please clarify Amiodarone dose. Per this note; Plan: We will reduce the amiodarone dose to 200 mg once a day But pt was on 200mg dose for a couple years already. Then 2 amiodarones Rx's came thru. A renewal for 200mg per day. And a new Rx for 100mg per day Rx. Pt told processing Pharmacist the current dose was the 100mg per day Rx. DC the 200mg Rx that is pending? Pt picked up the 100mg per day Rx 11/04/22. /vincenzo/ Gerald Richards, Pharm.D PHARMACIST Signed: 11/09/2022 10:29 Receipt Acknowledged By: * AWAITING SIGNATURE * MARISELA BRISCOE 11/16/2022 ADDENDUM STATUS: COMPLETED DC'd AMIODARONE 200mg per day per pt report that it is a old dose. Unable to clarify with prescriber. /vincenzo/ Gerald Richards, Pharm.D PHARMACIST Signed: 11/16/2022 09:01 Receipt Acknowledged By: * AWAITING SIGNATURE * MARISELA BRISCOE [facility]
--- OUTSIDE RECORDS SUMMARY | 2023-10-26 17:08 | XMS_ITS | Continuity of Care Document ---
Author Name [facility] Organization [facility] Care Team Providers Care Student Support Counselor Name Role Phone [facility] Unavailable Unavailable Problems Combined list of problems from Department of Defense and [facility] Affairs facilities. It does not include entries that were removed or entered in error. Problem Status Onset Date Problem Type Date of Resolution Comments Source ANEMIA NOS Active Condition [facility] Arrhythmia (SNOMED CT 307158060) Active Condition [facility] Asthma (SNOMED CT 715718513) Active Condition [facility] Atrial fibrillation Active [place] [facility] Gomez's esophagus [facility] Benign prostatic hyperplasia (SNOMED CT 255084189) Active Condition [facility] Bigeminy (ICD-9-CM 427.89) Active Condition [facility] Bradycardia * (ICD-9-CM 427.89) Active Condition [facility] Cardiomyopathy (SNOMED CT 04957810) Active Condition [facility] Cataract nos Active Condition [facility] COPD - Chronic obstructive pulmonary disease Active [facility] Dizziness and giddiness Active Condition [facility] Empyema, Pleural * (ICD-9-CM 510.9) [facility] Gastroesophageal reflux disease (SNOMED CT 761546829) Active Condition [facility] HEMATURIA Active Condition [facility] Hypertension (SNOMED CT 00439649) Active Condition Nov 27, 2020 Entered By: NONA PAULINO Comment: 24 HR BP Monitor October 2020 - avg BP 124/68, avg HR 68 [facility] IMPOTENCE, ORGANIC Active Condition [place] [facility] Nocturia Active Condition [facility] Pseudophakia Active Condition [facility] Simple obesity (SNOMED CT 361974333) Active Condition [facility] Sleep apnea (SNOMED CT 35355751) Active Condition [facility] Diagnosis: ICD-10-CM G47.39 Other sleep apnea Active Diagnosis [facility] Diagnosis: ICD-10-CM I49.9 Cardiac arrhythmia, unspecified Active Diagnosis [facility] Diagnosis: ICD-10-CM Z13.6 Encounter for screening for cardiovascular disorders Active Diagnosis [facility] Diagnosis: ICD-10-CM I49.3 Ventricular premature depolarization Active Diagnosis [facility] Diagnosis: ICD-10-CM 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 Active Diagnosis [facility] Diagnosis: ICD-10-CM R35.1 Nocturia Active Diagnosis [facility] Diagnosis: ICD-10-CM N40.1 Benign prostatic hyperplasia with lower urinary tract symp Active Diagnosis [facility] Diagnosis: ICD-10-CM I87.2 Venous insufficiency (chronic) (peripheral) Active Diagnosis [facility] Diagnosis: ICD-10-CM 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 [facility] Diagnosis: ICD-10-CM R42 Dizziness and giddiness Active Diagnosis [facility] Diagnosis: ICD-10-CM E66.01 Morbid (severe) obesity due to excess calories Active Diagnosis [facility] Diagnosis: ICD-10-CM I10 Essential (primary) hypertension Active Diagnosis [facility] Diagnosis: ICD-10-CM R26.89 Other abnormalities of gait and mobility Active Diagnosis [facility] Diagnosis: ICD-10-CM M25.512 Pain in left shoulder Active Diagnosis [facility] Diagnosis: ICD-10-CM Z46.1 Encounter for fitting and adjustment of hearing aid Active Diagnosis [facility] Diagnosis: ICD-10-CM Z96.1 Presence of intraocular lens Active Diagnosis [facility] Diagnosis: ICD-10-CM Z73.6 Limitation of activities due to disability Active Diagnosis [facility] Diagnosis: ICD-10-CM H81.10 Benign paroxysmal vertigo, unspecified ear Active Diagnosis [facility] Diagnosis: ICD-10-CM Z01.118 Encntr for exam of ears and hearing w oth abnormal findings Active Diagnosis [facility] Diagnosis: ICD-10-CM I42.9 Cardiomyopathy, unspecified Active Diagnosis [facility] Diagnosis: ICD-10-CM I48.91 Unspecified atrial fibrillation Active Diagnosis [facility] Medications Combined list of outpatient medications from Department of Defense and Veterans Affairs facilities.Medications provided include 1) outpatient medications from the last 15 months, and 2) patient-reported medications. Medication Details Route Status Patient Instructions Prescription Expires Prescription Number Last Dispense Date Ordering Provider Order Date Order Qty Source ACETAMINOPH EN 325MG TAB TAKE TWO TABLETS BY MOUTH THREE TIMES A DAY FOR PAIN -NOT TO EXCEED 4000MG IN 24 HOURS FROM ALL SOURCES ORAL ACTIVE 05/19/2024 [id number] NONA SOTO 2023 [address] [place] ALBUTEROL 90MCG/ACTUA T (CFC-F) INHL,ORAL,8 .5GM DOSE COUNTER INHALE 2 PUFFS BY INHALATI ON FOUR TIMES A DAY NEEDED FOR BREATHIN G SHAKE WELL (FOR IMMEDIAT E RELIEF) REPLACES LEVALBUT THEO. RESPIR ATORY (INHAL ATION) ACTIVE 10/26/2023 [id number] 4 NONA SOTO 2022 2 [facility] AMIODARONE HCL (PACERONE) 100MG TAB TAKE ONE TABLET BY MOUTH EVERY DAY FOR HEART RHYTHM ORAL DISCONT INUED 04/11/2024 [id number] 3 ACOSTA ALVAREZ NA NARAS 2022 90 [facility] AMIODARONE HCL (PACERONE) 100MG TAB TAKE ONE TABLET BY MOUTH EVERY DAY FOR HEART RHYTHM ORAL DISCONT INUED 11/05/2023 [id number] 3 ACOSTA ALVAREZ NARAS 2022 90 [facility] AMIODARONE HCL (PACERONE) 200MG TAB TAKE ONE TABLET BY MOUTH EVERY DAY FOR HEART ARRHYTHM IA ORAL DISCONT INUED 03/24/2023 [id number] 3 ACOSTA ALVAREZ NA NARAS 2021 90 [facility] AMLODIPINE BESYLATE 5MG TAB TAKE ONE TABLET BY MOUTH DAILY ORAL ACTIVE 07/01/2024 [id number] 4 NONA SOTO 2023 90 [facility] AMLODIPINE BESYLATE 5MG TAB TAKE ONE TABLET BY MOUTH DAILY ORAL DISCONT INUED 07/24/2023 [id number] 3 ACOSTA ALVAREZ 2022 90 [facility] CARBOXYMETH YLCELLULOSE NA 0.25% SOLN,OPH INSTILL 1 DROP IN BOTH EYES FOUR TIMES A DAY FOR DRY EYES OPHTHA LMIC ACTIVE 12/10/2023 [id number] 4 LUCINA LOPEZ 2022 45 [facility] CHOLECALCIF THEO TAB TAKE BY MOUTH EVERY DAY ORAL ACTIVE NAE Ramachandran RAHUL 2017 [facility] DOCUSATE CAP,ORAL TAKE 250MG BY MOUTH EVERY MORNING ORAL ACTIVE NAE Ramachandran RAHUL 2017 [facility] DOXAZOSIN MESYLATE 2MG TAB TAKE ONE TABLET BY MOUTH AT BEDTIME FOR BPH (BENIGN PROSTATI C HYPERPLA PAVAN) ORAL ACTIVE 04/11/2024 [id number] 4 NONA SOTO 2023 90 [facility] DOXAZOSIN MESYLATE 2MG TAB TAKE ONE TABLET BY MOUTH AT BEDTIME FOR BPH (BENIGN PROSTATI C HYPERPLA PAVAN) ORAL DISCONT INUED 04/19/2023 [id number] 3 NONA SOTO 2022 90 [facility] FAMOTIDINE 20MG TAB TAKE ONE TABLET BY MOUTH TWICE A DAY TO DECREASE STOMACH ACID ORAL ACTIVE 01/14/2024 [id number] 4 NONA SOTO 2022 180 [facility] FAMOTIDINE 20MG TAB TAKE ONE TABLET BY MOUTH TWICE A DAY TO DECREASE STOMACH ACID ORAL DISCONT INUED 12/08/2022 [id number] 3 NONA SOTO 2021 180 [facility] FINASTERIDE 1MG TAB TAKE TWO TABLETS BY MOUTH EVERY DAY FOR PROSTATE ORAL DISCONT INUED (EDIT) 10/26/2023 [id number] 4 ACOSTA ALVAREZ 2022 180 [facility] FINASTERIDE 1MG TAB TAKE TWO TABLETS BY MOUTH EVERY DAY FOR PROSTATE ORAL DISCONT INUED 12/08/2022 [id number] 3 ACOSTA ALVAREZ 2021 180 [facility] FINASTERIDE 5MG TAB TAKE ONE TABLET BY MOUTH EVERY DAY FOR PROSTATE ORAL ACTIVE 10/24/2024 [id number] 4 NAE RamachandranNONA 2023 90 [facility] FLUTICASONE 250MCG/SALM ETEROL 50MCG INHL,ORAL,D ISKUS,60 INHALE 1 PUFF BY INHALATI ON TWICE A DAY TO PREVENT TROUBLE BREATHIN G - RINSE MOUTH AFTER USING. RESPIR ATORY (INHAL ATION) DISCONT INUED 11/18/2022 [id number] 3 DANIELA CLAYTON 2021 3 [facility] FLUTICASONE 250MCG/SALM ETEROL 50MCG INHL,ORAL,D ISKUS,60 INHALE 1 PUFF BY INHALATI ON TWICE A DAY TO PREVENT TROUBLE BREATHIN G - RINSE MOUTH AFTER USING. RESPIR ATORY (INHAL ATION) 10/02/2023 [id number] 4 NONA SOTO 2022 3 [facility] IBUPROFEN 400MG TAB TAKE ONE TABLET BY MOUTH TWICE A DAY NEEDED ORAL ACTIVE PAUL SOTOL 2017 [facility] LACTOBACILL US ACIDOPHILUS TAB TAKE 1 TABLET BY MOUTH EVERY DAY (PROBIOT IC) ORAL 07/09/2023 [id number] 4 PAUL SOTOL 2022 100 [facility] LOSARTAN 50MG TAB TAKE ONE TABLET BY MOUTH EVERY DAY FOR BLOOD PRESSURE ORAL ACTIVE 07/23/2024 [id number] 4 NAE RamachandranNONA 2023 90 [facility] LOSARTAN 50MG TAB TAKE ONE TABLET BY MOUTH EVERY DAY FOR BLOOD PRESSURE ORAL DISCONT INUED 07/23/2023 [id number] 4 NONA SOTO 2022 90 [place] [facility] NYSTATIN [id number] M CREAM,TOP APPLY THIN LAYER TOPICALL Y TWICE A DAY 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 USE ONLY TOPICA L ACTIVE 01/18/2024 [id number] 3 NONA SOTO [address] [facility] POLYETHYLEN E GLYCOL 3350 POWDER,ORAL TAKE BY MOUTH ORAL ACTIVE ACOSTA ALVAREZ [address] [facility] POLYETHYLEN E GLYCOL 3350 PWDR,ORAL TAKE 17 GRAMS BY MOUTH EVERY DAY FOR CONSTIPA TION - MIX IN 4 TO 8 OUNCES OF LIQUID DIRECTED *USE COVER TO MEASURE POWDER* ORAL ACTIVE 01/07/2024 [id number] 4 NONA SOTO [address] [place] [facility] [address] [facility] POLYETHYLEN E GLYCOL 3350 PWDR,ORAL TAKE 17 GRAMS BY MOUTH EVERY DAY FOR CONSTIPA TION - MIX IN 4 TO 8 OUNCES OF LIQUID DIRECTED *USE COVER TO MEASURE POWDER* ORAL DISCONT INUED 04/10/2023 [id number] 3 NONA SOTO 2021 510 [facility] POLYVINYL ALCOHOL 1.4% SOLN,OPH INSTILL 1 DROP IN BOTH EYES NEEDED OPHTHA LMIC ACTIVE GRANT RECINOS 2015 [facility] SODIUM CHLORIDE 0.65% SOLN,NASAL SPRAY SPRAY 2 SPRAYS IN EACH NOSTRIL FOUR TIMES A DAY NASAL 02/25/2023 [id number] 3 JESSENIA IVY RKUS [address] [place] [facility] [address] [facility] SODIUM CHLORIDE 0.65% SOLN,SPRAY, NASAL SPRAY 2 SPRAYS IN EACH NOSTRIL TWICE A DAY NEEDED NASAL ACTIVE NONA SOTO 2017 [facility] TIOTROPIUM 18MCG CAP,INHL,30 INHALE ONE CAPSULE IN INHALER BY INHALATI ON EVERY DAY TO PREVENT TROUBLE BREATHIN G RESPIR ATORY (INHAL ATION) ACTIVE 10/26/2023 [id number] 4 NONA SOTO 2022 3 [facility] TIOTROPIUM 18MCG CAP,INHL,30 INHALE ONE CAPSULE IN INHALER BY INHALATI ON EVERY DAY TO PREVENT TROUBLE BREATHIN G RESPIR ATORY (INHAL ATION) DISCONT INUED 11/11/2022 [id number] 3 NONA SOTO 2021 3 [facility] VANICREAM APPLY THIN LAYER TOPICALL Y TWICE A DAY FOR DRY SKIN TOPICA L ACTIVE 02/23/2024 [id number] 4 NONA SOTO 2022 908 [facility] Allergies, Adverse Reactions, Alerts Combined list of allergies from Department of Defense and Veterans Affairs facilities. It does not include entries that were removed or entered in error. Substance Category Reaction Severity Reaction type Status Date Reported Comments Source ANIMALS Propensity to adverse reaction (finding) Asthma finding, Swelling of structure of eye, Dyspnea active 1 [facility] BRAZIL NUTS Propensity to adverse reactions to food (finding) Urticaria active 7 [facility] Immunizations Combined list of available immunizations from the Department of Defense and Veterans Affairs facilities. Immunization Series Date Given Administered By Site Reaction Lot Number CVX Code Drug Marketing Communications Coordinator Status Comments Source COVID-19 ([employer]), MRNA, LNP-S, PF, 30 MCG/0.3 ML DOSE 2 2020 208 complet ed PFR; [id number]; 1 [facility] COVID-19 ([employer]), MRNA, LNP-S, PF, 30 MCG/0.3 ML DOSE 1 2020 208 complet ed PFR; [id number]; 1 [facility] INFLUENZA, INJECTABLE, QUADRIVALENT, PRESERVATIVE FREE 2019 150 complet ed [facility] INFLUENZA, SEASONAL, INJECTABLE, PRESERVATIVE FREE 2018 140 complet ed [facility] ZOSTER RECOMBINANT 2 2018 187 complet ed [facility] PNEUMOCOCCAL POLYSACCHARID E [id number] 2017 33 complet ed Merck [facility] ZOSTER RECOMBINANT 1 2017 187 complet ed [facility] PNEUMOCOCCAL CONJUGATE PCV 13 2014 133 complet ed [id number], 06/2016 [facility] TDAP 2013 115 complet ed [id number], 07/27/15 [facility] ZOSTER LIVE 2013 121 complet ed merck 04/26/14, [id number] [facility] TD(ADULT) UNSPECIFIED FORMULATION 2006 ZIA HAYS 139 complet ed [facility] PNEUMOCOCCAL, UNSPECIFIED FORMULATION 2002 NONE 109 complet ed [facility] INFLUENZA (HISTORICAL) 2002 88 complet ed [facility] INFLUENZA (HISTORICAL) 2002 88 complet ed Received 50% of child dosage on 02/22/03 et 03/14/03. [facility] TD (ADULT), 5 LF TETANUS TOXOID, PRESERVATIVE FREE, ADSORBED 1997 113 complet ed [facility] TD(ADULT) UNSPECIFIED FORMULATION 1997 139 complet ed [facility] Results Combined list of recent chemistry, hematology and other laboratory results from Department of Defense and Veterans Affairs, ranging from 15 months to all on record, depending upon the facility. Order Name Results Value Reference Range Date Interpretation Specimen Comments Source HEMOGLOBI N A1C HEMOGLOBIN A1C/HEMOGLO BIN.TOTAL IN BLOOD 5.5 4.0 - 6.0 10/23 Specimen Type: BLOOD Comment: Values obtained from A1C measurement s can vary. For typical A1C assays, a reported value of 7.0 could actually be between 6.7 and 7.3 if measured by a reference method. A reported value of 9.0 could actually be between 8.7 and 9.3. Ref: http://www. ngsp.org/[place] Pdata.asp Ordering Provider: NONA PAULINO Report Released Date/Time: Jul 28, 2023 11:33 PM Reporting Lab: [facility] [address] Performing Lab: [facility] [address] [facility] B 12 COBALAMIN (VITAMIN B12) [MASS/VOLUM E] IN SERUM OR PLASMA 316 pg/mL 213 - 816 10/23 Specimen Type: SERUM No comment entered. Ordering Provider: NONA PAULINO Report Released Date/Time: Jul 28, 2023 11:33 PM Reporting Lab: [facility] [address] Performing Lab: [facility] [address] [place] [facility] FOLATE FOLATE [MASS/VOLUM E] IN SERUM OR PLASMA 8.1 ng/mL 7.0 10/23 Specimen Type: SERUM No comment entered. Ordering Provider: NONA PAULINO Report Released Date/Time: Jul 28, 2023 11:33 PM Reporting Lab: [facility] [address] Performing Lab: [facility] [address] [place] [facility] LIPID PANEL,NON -FASTING CHOLESTEROL [MASS/VOLUM E] IN SERUM OR PLASMA 150 mg/dL <199 - 199 10/23 Specimen Type: PLASMA No comment entered. Ordering Provider: NONA PAULINO Report Released Date/Time: Jul 28, 2023 11:33 PM Reporting Lab: [facility] [address] Performing Lab: [facility] [address] [place] [facility] LIPID PANEL,NON -FASTING CHOLESTEROL IN HDL [MASS/VOLUM E] IN SERUM OR PLASMA 54 mg/dL 40 10/23 Specimen Type: PLASMA No comment entered. Ordering Provider: NONA PAULINO Report Released Date/Time: Jul 28, 2023 11:33 PM Reporting Lab: [facility] [address] Performing Lab: [facility] [address] [place] [facility] LIPID PANEL,NON -FASTING CHOLESTEROL IN LDL [MASS/VOLUM E] IN SERUM OR PLASMA BY CALCULATION 84 mg/dL <99 - 99 10/23 Specimen Type: PLASMA No comment entered. Ordering Provider: NONA PAULINO Report Released Date/Time: Jul 28, 2023 11:33 PM Reporting Lab: [facility] [address] Performing Lab: [facility] [address] [place] [facility] LIPID PANEL,NON -FASTING CHOLESTEROL IN VLDL [MASS/VOLUM E] IN SERUM OR PLASMA BY CALCULATION 12 mg/dL <29 - 29 10/23 Specimen Type: PLASMA No comment entered. Ordering Provider: NONA PAULINO Report Released Date/Time: Jul 28, 2023 11:33 PM Reporting Lab: [facility] [address] Performing Lab: [facility] [address] [place] [facility] LIPID PANEL,NON -FASTING CHOLESTEROL NON HDL [MASS/VOLUM E] IN SERUM OR PLASMA 96 mg/dL <129 - 129 10/23 Specimen Type: PLASMA No comment entered. Ordering Provider: NONA PAULINO Report Released Date/Time: Jul 28, 2023 11:33 PM Reporting Lab: [facility] [address] Performing Lab: [facility] [address] [place] [facility] LIPID PANEL,NON -FASTING TRIGLYCERID E [MASS/VOLUM E] IN SERUM OR PLASMA 60 mg/dL <149 - 149 10/23 Specimen Type: PLASMA No comment entered. Ordering Provider: NONA PAULINO Report Released Date/Time: Jul 28, 2023 11:33 PM Reporting Lab: [facility] [address] Performing Lab: [facility] [address] [place] [facility] BASIC METABOLIC PANEL+MG CREATININE [MASS/VOLUM E] IN SERUM OR PLASMA 1.0 mg/dL 0.7 - 1.2 10/23 Specimen Type: PLASMA No comment entered. Ordering Provider: NONA PAULINO Report Released Date/Time: Jul 28, 2023 11:33 PM Reporting Lab: [facility] [address] Performing Lab: [facility] [address] [place] [facility] BASIC METABOLIC PANEL+MG UREA NITROGEN [MASS/VOLUM E] IN SERUM OR PLASMA 23 mg/dL 8 - 26 10/23 Specimen Type: PLASMA No comment entered. Ordering Provider: NONA PAULINO Report Released Date/Time: Jul 28, 2023 11:33 PM Reporting Lab: [facility] [address] Performing Lab: [facility] [address] [place] [facility] BASIC METABOLIC PANEL+MG GLUCOSE [MASS/VOLUM E] IN SERUM OR PLASMA 86 mg/dL 70 - 100 10/23 Specimen Type: PLASMA No comment entered. Ordering Provider: NONA PAULINO Report Released Date/Time: Jul 28, 2023 11:33 PM Reporting Lab: [facility] [address] Performing Lab: [facility] [address] [place] [facility] BASIC METABOLIC PANEL+MG SODIUM [MOLES/VOLU ME] IN SERUM OR PLASMA 141 mmol/L 136 - 145 10/23 Specimen Type: PLASMA No comment entered. Ordering Provider: NONA PAULINO Report Released Date/Time: Jul 28, 2023 11:33 PM Reporting Lab: [facility] [address] Performing Lab: [facility] [address] [place] [facility] BASIC METABOLIC PANEL+MG POTASSIUM [MOLES/VOLU ME] IN SERUM OR PLASMA 4.7 mmol/L 3.5 - 5.1 10/23 Specimen Type: PLASMA No comment entered. Ordering Provider: NONA PAULINO Report Released Date/Time: Jul 28, 2023 11:33 PM Reporting Lab: [facility] [address] Performing Lab: [facility] [address] [place] [facility] BASIC METABOLIC PANEL+MG CHLORIDE [MOLES/VOLU ME] IN SERUM OR PLASMA 108 mmol/L 98 - 107 10/23 H Specimen Type: PLASMA No comment entered. Ordering Provider: NONA PAULINO Report Released Date/Time: Jul 28, 2023 11:33 PM Reporting Lab: [facility] [address] Performing Lab: [facility] [address] [place] [facility] BASIC METABOLIC PANEL+MG CARBON DIOXIDE, TOTAL [MOLES/VOLU ME] IN SERUM OR PLASMA 25 mmol/L 22 - 29 10/23 Specimen Type: PLASMA No comment entered. Ordering Provider: NONA PAULINO Report Released Date/Time: Jul 28, 2023 11:33 PM Reporting Lab: [facility] [address] Performing Lab: [facility] [address] [place] [facility] METABOLIC PANEL+MG CALCIUM [MASS/VOLUM E] IN SERUM OR PLASMA 9.6 mg/dL 8.4 - 10.2 10/23 Specimen Type: PLASMA No comment entered. Ordering Provider: NONA PAULINO Report Released Date/Time: Jul 28, 2023 11:33 PM Reporting Lab: [facility] [address] Performing Lab: [facility] [address] [place] [facility] BASIC METABOLIC PANEL+MG MAGNESIUM [MASS/VOLUM E] IN SERUM OR PLASMA 2.0 mg/dL 1.6 - 2.6 10/23 Specimen Type: PLASMA No comment entered. Ordering Provider: NONA PAULINO Report Released Date/Time: Jul 28, 2023 11:33 PM Reporting Lab: [facility] [address] Performing Lab: [facility] [address] [place] [facility] BASIC METABOLIC PANEL+MG ANION GAP IN SERUM OR PLASMA 8 mmol/L 5 - 15 10/23 Specimen Type: PLASMA No comment entered. Ordering Provider: NONA PAULINO Report Released Date/Time: Jul 28, 2023 11:33 PM Reporting Lab: [facility] [address] Performing Lab: [facility] [address] [place] [facility] BASIC METABOLIC PANEL+MG GLOMERULAR FILTRATION RATE/1.73 SQ M.PREDICTED [VOLUME RATE/AREA] IN SERUM, PLASMA OR BLOOD BY CREATININE- BASED FORMULA (CKD-EPI 2020) 73 60 10/23 Specimen Type: PLASMA No comment entered. Ordering Provider: NONA PAULINO Report Released Date/Time: Jul 28, 2023 11:33 PM Reporting Lab: [facility] [address] Performing Lab: [facility] [address] [place] [facility] CBC LEUKOCYTES [#/VOLUME] IN BLOOD BY AUTOMATED COUNT 7.64 10*3/u L 4.0 - 11.0 10/23 Specimen Type: BLOOD No comment entered. Ordering Provider: NOAN PAULINO Report Released Date/Time: Jul 28, 2023 11:33 PM Reporting Lab: [facility] [address] Performing Lab: [facility] [address] [place] [facility] CBC ERYTHROCYTE S [#/VOLUME] IN BLOOD BY AUTOMATED COUNT 4.19 10*6/u L 4.6 - 6.2 10/23 L Specimen Type: BLOOD No comment entered. Ordering Provider: NONA PAULINO Report Released Date/Time: Jul 28, 2023 11:33 PM Reporting Lab: [facility] [address] Performing Lab: [facility] [address] [place] [facility] CBC HEMOGLOBIN [MASS/VOLUM E] IN BLOOD 12.9 g/dL 13.5 - 17.9 10/23 L Specimen Type: BLOOD No comment entered. Ordering Provider: NONA PAULINO Report Released Date/Time: Jul 28, 2023 11:33 PM Reporting Lab: [facility] [address] Performing Lab: [facility] [address] [place] [facility] CBC HEMATOCRIT [VOLUME FRACTION] OF BLOOD BY AUTOMATED COUNT 39.5 41 - 54 10/23 L Specimen Type: BLOOD No comment entered. Ordering Provider: NONA PAULINO Report Released Date/Time: Jul 28, 2023 11:33 PM Reporting Lab: [facility] [address] Performing Lab: [facility] [address] [place] [facility] CBC MCV [ENTITIC VOLUME] BY AUTOMATED COUNT 94.3 fL 80 - 100 10/23 Specimen Type: BLOOD No comment entered. Ordering Provider: NONA PAULINO Report Released Date/Time: Jul 28, 2023 11:33 PM Reporting Lab: [facility] [address] Performing Lab: [facility] [address] [place] [facility] CBC MCH [ENTITIC MASS] BY AUTOMATED COUNT 30.8 pg 27 - 33 10/23 Specimen Type: BLOOD No comment entered. Ordering Provider: NONA PAULINO Report Released Date/Time: Jul 28, 2023 11:33 PM Reporting Lab: [facility] [address] Performing Lab: [facility] [address] [place] [facility] CBC MCHC [MASS/VOLUM E] BY AUTOMATED COUNT 32.7 g/dL 32.0 - 37.5 10/23 Specimen Type: BLOOD No comment entered. Ordering Provider: NONA PAULINO Report Released Date/Time: Jul 28, 2023 11:33 PM Reporting Lab: [facility] [address] Performing Lab: [facility] [address] [place] [facility] CBC PLATELETS [#/VOLUME] IN BLOOD BY AUTOMATED COUNT 213 10*3/u L 150 - 400 10/23 Specimen Type: BLOOD No comment entered. Ordering Provider: NONA PAULINO Report Released Date/Time: Jul 28, 2023 11:33 PM Reporting Lab: [facility] [address] Performing Lab: [facility] [address] [place] [facility] CBC PLATELET MEAN VOLUME [ENTITIC VOLUME] IN BLOOD BY AUTOMATED COUNT 9.1 fL 7.4 - 10.4 10/23 Specimen Type: BLOOD No comment entered. Ordering Provider: NONA PAULINO Report Released Date/Time: Jul 28, 2023 11:33 PM Reporting Lab: [facility] [address] Performing Lab: [facility] [address] [place] [facility] CBC ERYTHROCYTE DISTRIBUTIO N WIDTH [RATIO] BY AUTOMATED COUNT 13.7 11.5 - 14.5 10/23 Specimen Type: BLOOD No comment entered. Ordering Provider: NONA PAULINO Report Released Date/Time: Jul 28, 2023 11:33 PM Reporting Lab: [facility] [address] Performing Lab: [facility] [address] [place] [facility] IRON GROUP IRON [MASS/VOLUM E] IN SERUM OR PLASMA 83 ug/dL 65 - 175 10/23 Specimen Type: SERUM No comment entered. Ordering Provider: NONA PAULINO Report Released Date/Time: Jul 28, 2023 11:33 PM Reporting Lab: [facility] [address] Performing Lab: [facility] [address] [place] [facility] IRON GROUP IRON BINDING CAPACITY [MASS/VOLUM E] IN SERUM OR PLASMA 285 ug/dL 250 - 425 10/23 Specimen Type: SERUM No comment entered. Ordering Provider: NONA PAULINO Report Released Date/Time: Jul 28, 2023 11:33 PM Reporting Lab: [facility] [address] Performing Lab: [facility] [address] [place] [facility] IRON GROUP FERRITIN [MASS/VOLUM E] IN SERUM OR PLASMA 150.3 ng/mL 21.8 - 274.7 10/23 Specimen Type: SERUM No comment entered. Ordering Provider: NONA PAULINO Report Released Date/Time: Jul 28, 2023 11:33 PM Reporting Lab: [facility] [address] Performing Lab: [facility] [address] [place] [facility] IRON GROUP IRON SATURATION 29 20 - 50 10/23 Specimen Type: SERUM No comment entered. Ordering Provider: NOAN PAULINO Report Released Date/Time: Jul 28, 2023 11:33 PM Reporting Lab: [facility] [address] Performing Lab: [facility] [address] [place] [facility] IRON GROUP TRANSFERRIN [MASS/VOLUM E] IN SERUM OR PLASMA 228 mg/dL 163 - 382 10/23 Specimen Type: SERUM No comment entered. Ordering Provider: NONA PAULINO Report Released Date/Time: Jul 28, 2023 11:33 PM Reporting Lab: [facility] [address] Performing Lab: [facility] [address] [place] [facility] HEMOGLOBI N A1C HEMOGLOBIN A1C/HEMOGLO BIN.TOTAL IN BLOOD 5.6 4.0 - 6.0 09/05 Specimen Type: BLOOD Comment: Values obtained from A1C measurement s can vary. For typical A1C assays, a reported value of 7.0 could actually be between 6.7 and 7.3 if measured by a reference method. A reported value of 9.0 could actually be between 8.7 and 9.3. Ref: http://www. ngsp.org/[place] Pdata.asp Ordering Provider: JOSEFINA PULIDO Report Released Date/Time: September 06, 2023 02:05 PM Reporting Lab: [facility] [address] Performing Lab: [facility] [address] [facility] TSH W/REFLEX TO FREE T4 THYROTROPIN [UNITS/VOLU ME] IN SERUM OR PLASMA 0.97 u[IU]/ mL 0.35 - 4.94 09/05 Specimen Type: PLASMA Comment: Values obtained from A1C measurement s can vary. For typical A1C assays, a reported value of 7.0 could actually be between 6.7 and 7.3 if measured by a reference method. A reported value of 9.0 could actually be between 8.7 and 9.3. Ref: http://www. ngsp.org/[place] Pdata.asp Ordering Provider: JOSEFINA PULIDO Report Released Date/Time: September 06, 2023 02:05 PM Reporting Lab: [facility] [address] Performing Lab: [facility] [address] [place] [facility] CBC LEUKOCYTES [#/VOLUME] IN BLOOD BY AUTOMATED COUNT 6.22 10*3/u L 4.0 - 11.0 09/05 Specimen Type: BLOOD No comment entered. Ordering Provider: JOSEFINA PULIDO Report Released Date/Time: September 06, 2023 02:05 PM Reporting Lab: [facility] [address] Performing Lab: [place] [phone] [place] [facility] CBC ERYTHROCYTE S [#/VOLUME] IN BLOOD BY AUTOMATED COUNT 4.19 10*6/u L 4.6 - 6.2 09/05 L Specimen Type: BLOOD No comment entered. Ordering Provider: JOSEFINA PULIDO Report Released Date/Time: September 06, 2023 02:05 PM Reporting Lab: [facility] [address] Performing Lab: [facility] [address] [place] [facility] CBC HEMOGLOBIN [MASS/VOLUM E] IN BLOOD 13.3 g/dL 13.5 - 17.9 09/05 L Specimen Type: BLOOD No comment entered. Ordering Provider: JOSEFINA PULIDO Report Released Date/Time: September 06, 2023 02:05 PM Reporting Lab: [facility] [address] Performing Lab: [facility] [address] [place] [facility] CBC HEMATOCRIT [VOLUME FRACTION] OF BLOOD BY AUTOMATED COUNT 39.0 41 - 54 09/05 L Specimen Type: BLOOD No comment entered. Ordering Provider: JOSEFINA PULIDO Report Released Date/Time: September 06, 2023 02:05 PM Reporting Lab: [facility] [address] Performing Lab: [facility] [address] [place] [facility] CBC MCV [ENTITIC VOLUME] BY AUTOMATED COUNT 93.1 fL 80 - 100 09/05 Specimen Type: BLOOD No comment entered. Ordering Provider: JOSEFINA PULIDO Report Released Date/Time: September 06, 2023 02:05 PM Reporting Lab: [facility] [address] Performing Lab: [facility] [address] [place] [facility] CBC MCH [ENTITIC MASS] BY AUTOMATED COUNT 31.7 pg 27 - 33 09/05 Specimen Type: BLOOD No comment entered. Ordering Provider: JOSEFINA PULIDO Report Released Date/Time: September 06, 2023 02:05 PM Reporting Lab: [facility] [address] Performing Lab: [facility] [address] [place] [facility] CBC MCHC [MASS/VOLUM E] BY AUTOMATED COUNT 34.1 g/dL 32.0 - 37.5 09/05 Specimen Type: BLOOD No comment entered. Ordering Provider: JOSEFINA PULIDO Report Released Date/Time: September 06, 2023 02:05 PM Reporting Lab: [facility] [address] Performing Lab: [facility] [address] [place] [facility] CBC PLATELETS [#/VOLUME] IN BLOOD BY AUTOMATED COUNT 207 10*3/u L 150 - 400 09/05 Specimen Type: BLOOD No comment entered. Ordering Provider: JOSEFINA PULIDO Report Released Date/Time: September 06, 2023 02:05 PM Reporting Lab: [facility] [address] Performing Lab: [facility] [address] [facility] CBC PLATELET MEAN VOLUME [ENTITIC VOLUME] IN BLOOD BY AUTOMATED COUNT 9.2 fL 7.4 - 10.4 09/05 Specimen Type: BLOOD No comment entered. Ordering Provider: JOSEFINA PULIDO Report Released Date/Time: September 06, 2023 02:05 PM Reporting Lab: [facility] [address] Performing Lab: [facility] [address] [facility] CBC ERYTHROCYTE DISTRIBUTIO N WIDTH [RATIO] BY AUTOMATED COUNT 13.5 11.5 - 14.5 09/05 Specimen Type: BLOOD No comment entered. Ordering Provider: JOSEFINA PULIDO Report Released Date/Time: September 06, 2023 02:05 PM Reporting Lab: [facility] [phone] Performing Lab: [facility] [address] [facility] Vital Signs Combined list of inpatient and outpatient Vital Signs from Department of Defense and Veterans Affairs, ranging from 12 months to all on record, depending upon the facility. Vital Sign Value Date Comments Source Encounters Combined list of: 1) Encounters from Department of [facility] facilities going back up to thelast 18 months. 2) Encounters from the Department of Defense facilities going back up to 280 months. Location Location Details Encounter Type Encounter Number Reason For Visit Attending Provider ADM Date DC Date Status Disposition Source [facility] Outpatient Encounter [id number] LUMA WEBSTER 05/10 [facility] Outpatient Encounter [id number] Diagnos is: ICD-10- CM R42 Dizzine ss and giddine ss
NONA PAULINO 05/13 [facility] Outpatient Encounter [id number] 05/19 [facility] ELECTROCAR DIOGRAM COMPLETE [id number] Diagnos is: ICD-10- CM Z13.6 Encount er for screeni ng for cardiov ascular disorde rs
Rossy STEWART 06/08 [facility] NEUROMUSCU LAR REEDUCATIO N [id number] Diagnos is: ICD-10- CM R42 Dizzine ss and giddine ss
HUYEN WESLEY 06/08 [facility] OFFICE O/P EST SF 10-19 MIN [id number] Diagnos is: ICD-10- CM R42 Dizzine ss and giddine ss
SHELLI BENITEZ ERESA A 06/08 [facility] OFFICE O/P EST LOW 20-29 MIN [id number] Diagnos is: ICD-10- CM I48.91 Unspeci fied atrial fibrill ation<b r/> GARRET MONROY 06/23 [facility] Outpatient Encounter [id number] 06/25 [facility] Outpatient Encounter [id number] 07/01 [facility] Outpatient Encounter [id number] Diagnos is: ICD-10- CM I48.91 Unspeci fied atrial fibrill ation<b r/> RA JEFFERSONHUL 07/08 [facility] Outpatient Encounter [id number] Diagnos is: ICD-10- CM I48.91 Unspeci fied atrial fibrill ation<b r/> RA JEFFERSONHUL 07/22 [facility] Outpatient Encounter [id number] 07/22 [facility] Outpatient Encounter [id number] 07/26 [facility] Outpatient Encounter [id number] 08/10 [facility] TTE W/DOPPLER COMPLETE [id number] Diagnos is: ICD-10- CM I42.9 Cardiom yopathy , unspeci fied
Rossy STEWART 08/10 [facility] ELECTROCAR DIOGRAM COMPLETE [id number] Diagnos is: ICD-10- CM Z13.6 Encount er for screeni ng for cardiov ascular disorde rs
YADIEL DANIELLE TT A 08/10 [facility] OFFICE O/P EST MOD 30-39 MIN [id number] Diagnos is: ICD-10- CM R42 Dizzine ss and giddine ss
GARRET MONROY 08/10 [facility] HEARING AID CHECK BOTH EARS [id number] Diagnos is: ICD-10- CM Z01.118 Encntr for exam of ears and hearing w oth abnorma l finding s
CANDICE COVARRUBIAS A 08/20 [facility] Outpatient Encounter [id number] 08/23 [facility] Outpatient Encounter [id number] 09/03 [facility] Outpatient Encounter [id number] 09/23 [facility] OFFICE O/P EST MOD 30-39 MIN [id number] Diagnos is: ICD-10- CM R42 Dizzine ss and giddine ss
GARRET MONROY 10/01 [facility] OFF/OP CONSLTJ NEW/EST HI 55 [id number] [id number] Diagnos is: ICD-10- CM R42 Dizzine ss and giddine ss
EXCONDE,RU PERT E 10/08 [facility] ELECTROCAR DIOGRAM COMPLETE [id number] Diagnos is: ICD-10- CM Z13.6 Encount er for screeni ng for cardiov ascular disorde rs
JOSEPH,W AYNE O 11/04 [facility] OFFICE O/P EST MOD 30-39 MIN [id number] Diagnos is: ICD-10- CM R42 Dizzine ss and giddine ss
GARRET MONROY 11/04 [facility] Outpatient Encounter [id number] 11/19 [facility] OFFICE O/P NEW MOD 45-59 MIN [id number] Diagnos is: ICD-10- CM Z13.6 Encount er for screeni ng for cardiov ascular disorde rs
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
CHRISSY STUBBS C 12/28 [facility] SELF CARE MNGMENT TRAINING [id number] Diagnos is: ICD-10- CM Z73.6 Limitat ion of activit ies due to disabil ity<br/ > RA DANYA JONES CASIMIRO 12/30 [facility] HC PRO PHONE CALL 5-10 MIN [id number] Diagnos is: ICD-10- CM G47.39 Other sleep apnea<b r/> JULIAN SANCHEZ ICA S 01/06 [facility] THERAPEUTI C EXERCISES [id number] Diagnos is: ICD-10- CM M25.512 Pain in left shoulde r
GLADE,SAMU EL C 01/11 [facility] Outpatient Encounter [id number] 01/14 [facility] OFFICE O/P EST HI 40-54 MIN [id number] [id number] Diagnos is: ICD-10- CM R42 Dizzine ss and giddine ss
PAUL PAULINOL 01/17 [facility] OFFICE O/P EST MOD 30-39 MIN [id number] Diagnos is: ICD-10- CM Z96.1 Presenc e of intraoc ular lens
GRAMATES,P EGGY H 01/19 [facility] HEARING AID FITTING/CH ECKING [id number] Diagnos is: ICD-10- CM Z46.1 Encount er for fitting and adjustm ent of hearing aid<br/ > TREV DE LA TORRE EXANDRA E 01/27 [facility] THERAPEUTI C EXERCISES [id number] Diagnos is: ICD-10- CM R26.89 Other abnorma lities of gait and mobilit y
GLADE,SAMU EL C 01/27 [facility] MANUAL THERAPY / REGIONS [id number] Diagnos is: ICD-10- CM M25.512 Pain in left shoulde r
GLADE,SAMU EL C 02/15 [facility] Outpatient Encounter [id number] 02/24 [facility] THERAPEUTI C EXERCISES [id number] [id number] Diagnos is: ICD-10- CM R26.89 Other abnorma lities of gait and mobilit y
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<br/ > PATRICIA GLOVER LOW P 03/16 [facility] Outpatient [facility]counter [id number] 03/22 [facility] Outpatient Encounter [id number] 04/06 [facility] Outpatient Encounter [id number] 04/11 [facility] Outpatient Encounter [id number] 04/11 [facility] OFF/OP EST MAY X REQ PHY/QHP [id number] Diagnos is: ICD-10- CM 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
BAIRON DOWD 04/14 [place] [facility] [place] [facility] Outpatient Encounter [id number] 04/28 [facility] [place] [facility] Outpatient Encounter [id number] 05/03 [facility] ELECTROCAR DIOGRAM REPORT [id number] Diagnos is: ICD-10- CM Z13.6 Encount er for screeni ng for cardiov ascular disorde rs
FLORBRIEN,MARY ALICE REL 05/17 [facility] OFFICE O/P EST MOD 30 MIN [id number] Diagnos is: ICD-10- CM R42 Dizzine ss and giddine ss
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<br/ > NISEAG,PATRICIA LOW P 05/18 [facility] Outpatient Encounter [id number] 05/29 [place] [facility] Out[facility]counter [id number] 06/01 [facility] Outpatient Encounter [id number] 06/08 [place] [facility] ORTHC/PROS TC MGMT SBSQ ENC [id number] Diagnos is: ICD-10- CM 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<br/ > NISEAG,PATRICIA LOW P 06/09 [facility] [place] [facility] Outpatient Encounter [id number] 06/23 [facility] DEBRIDE NAIL 6 OR MORE [id number] Diagnos is: ICD-10- CM I87.2 Venous insuffi ciency (chroni c) (periph eral)<b r/> SANDHUIBETH DOYLE 06/27 [facility] Outpatient Encounter [id number] Diagnos is: ICD-10- CM 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
RA JEFFERSONHUL 07/27 [facility] Outpatient Encounter [id number] 08/02 [facility] OFF/OP CNSLTJ NEW/EST LOW 30 [id number] [id number] Diagnos is: ICD-10- CM R35.1 Nocturi a
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
ANIRUDHCindiRUBY PASTOR 09/05 [facility] OFFICE O/P EST MOD 30 MIN [id number] Diagnos is: ICD-10- CM I49.3 Ventric ular prematu re depolar ization
GARRET MONROY 09/05 [facility] ECG MONIT/REPR T UP TO 48 HRS [id number] Diagnos is: ICD-10- CM Z13.6 Encount er for screeni ng for cardiov ascular disorde rs
GARRET MONROY 09/05 [facility] Outpatient Encounter [id number] 10/23 [facility] OFFICE O/P EST HI 40 MIN [id number] [id number] Diagnos is: ICD-10- CM I49.9 Cardiac arrhyth all, unspeci fied
NONA PAULINO 10/23 [facility] Outpatient Encounter [id number] MANNY MARTINEZ 10/23 [facility] Outpatient Encounter [id number] MATHEW LOPEZ 10/24 [facility] PRO PHONE CALL 5-10 MIN [id number] Diagnos is: ICD-10- CM G47.39 Other sleep apnea<b r/> SHONDA HERNANDEZ 10/24 [facility] Social History Combined list of available smoking, tobacco, and other social history from Department of Defense and [facility] Affairs facilities. Social History Type Response Date Comment Sourc e Tobacco smoking status VTIS CT-TOBACCO FORMER USER 10/24/2023 [facility] History of tobacco use CT-TOBACCO QUIT 1 5 YRS OR MORE 10/24/2023 [facility] History of tobacco use CT-TOBACCO FORMER USER 01/17/2023 [facility] History of tobacco use VA-TOBACCO FORMER USER 02/01/2022 [facility] History of tobacco use CT-TOBACCO QUIT 1 5 YRS OR MORE 02/02/2021 [facility] History of tobacco use CT-TOBACCO QUIT 1 5 YRS OR MORE 12/12/2019 [facility] History of tobacco use VA-TOBACCO FORMER USER 06/21/2018 [facility] History of tobacco use INPT NO TOBACCO U SE IN LAST 30 DAYS 09/15/2017 [facility] History of tobacco use FORMER TOBACCO US ER 7Y OR GREATER 06/29/2017 [facility] History of tobacco use INPT NO TOBACCO U SE IN LAST 30 DAYS 09/16/2016 [facility] History of tobacco use FORMER TOBACCO US ER 7Y OR GREATER 05/06/2016 [facility] History of tobacco use INPT NO TOBACCO U SE IN LAST 30 DAYS 03/24/2016 [facility] History of tobacco use FORMER TOBACCO US ER 7Y OR GREATER 06/23/2015 [facility] History of tobacco use FORMER TOBACCO US ER 7Y OR GREATER 07/04/2014 [facility] History of tobacco use 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 facilities. Additional future care activities may be listed in the Assessment and Plan section. Date/Time Care Activity Care Activity Detail Facili ty 11/02/2023 AMBULATORY - SURGERY AMBULATORY - SURGERY [facility] 11/08/2023 AMBULATORY - REHAB MEDICINE AMBULATORY - REHAB MEDICINE [facility] 12/26/2023 AMBULATORY - REHAB MEDICINE AMBULATORY - REHAB MEDICINE [facility] 01/11/2024 AMBULATORY - SURGERY AMBULATORY - SURGERY [facility] 01/31/2024 AMBULATORY - MEDICINE AMBULATORY - MEDICI NE [facility] 10/24/2023 Consult Order OT OCCUPATIONAL THERAPY OUTPT EQUIPMENT Cons [facility]le [facility]'s Choice [facility] Advance Directives List of completed, amended, or rescinded Advance Directives on record at [facility] facilities. An actual copy of the Directive is not included. Date Advance Directive Provider Source 07/15/2016 ADVANCE [address] [facility] 03/22/2016 CLINICAL WARNING PRUDENCIO TYLER [facility] 02/05/2011 CLINICAL WARNING LIZETH GABRIEL [facility] 12/17/2010 [address] [facility] 08/26/2003 ADVANCE DIRECTIVE ELGIN HOOPER [facility]
--- OUTSIDE RECORDS SUMMARY | 2023-10-26 17:09 | XMS_ITS | Encounter Summary ---
Author Name Department of [facility] Organization Department of [facility] Address [address] [place] [address] Care Team Providers Care Management Accounts Manager Name Role Phone KIARAAZAMPATRICIANONA Primary Care Provider Unavaila [facility] Insurance Providers: All historical and [...] Mandel's Name Patient's Relationship to Policy Mandel [facility] (WNR) MEDICARE ADVANTAGE MCR (WNR) May 02, 2016 [id number] [phone] Duarte PANDYA PATIENT [facility] (WNR) MEDICARE [facility] (WNR) May 02, 2016 [id number] [phone] Duarte PANDYA PATIENT Selected Encounter This section includes the information on record at NE for the Encounter. Date/Time Encounter Type Encounter Description Reason Provider Source Jan 11, 2023 01:00 PM THERAPEUTIC EXERCISES PHYSICAL THERAPY ICD-10-CM M25.512 Pain in left shoulder DARA CÁRDENAS Encounter Template Text not used by NE Assessments - Encounter Diagnoses This section includes the primary and secondary diagnoses documented for the Encounter. Date/Time Primary/Secondary Diagnosis Diagnosis Name Provider Source Jan 11, 2023 04:54 PM PRIMARY Pain in left shoulder DARA CÁRDENAS [facility] Jan 11, 2023 04:54 PM SECONDARY Other abnormalities of gait and mobility DARA CÁRDENAS [facility] Plan of Treatment: Future Appointments (+ 6 months) and Future Tests (+/- 45 days) The Plan of Treatment section includes future care activities for the [facility] This section includes future appointments and future orders which are active, pending or scheduled. Future Appointments This section includes appointments that were scheduled to occur 6 months from the date of the Encounter, up to a maximum of 20 appointments. The data comes from all [place] treatment facilities. Appointment Date/Time Appointment Type Appointme nt Facility Name Jan 14, 2023 03:00 PM [place] [facility] Jan 17, 2023 01:00 PM [place] [facility] Jan 19, 2023 02:00 PM [place] [facility] Jan 27, 2023 02:30 [facility] Jan 27, 2023 03:30 PM AMBULATORY - REHAB MEDICIN [facility] Feb 15, 2023 03:30 PM AMBULATORY - REHAB MEDICIN E [facility] Mar 09, 2023 02:30 PM AMBULATORY - REHAB MEDICIN E [facility] Mar 10, 2023 11:30 AM [place] [facility] Mar 16, 2023 02:30 PM AM[place]UL[place]ORY [place]ONE [place] [facility] Apr 13, 2023 12:00 PM AM[place]ORY [place]ONE [place] [facility] Apr 14, 2023 09:00 AM AM[place]UL[place]ORY [place]ONE [place] [facility] Apr 26, 2023 05:00 PM AM[place]ORY - [place]ONE [place] [facility] May 17, 2023 02:00 PM [place] [facility] May 17, 2023 02:30 PM [place] [facility] May 18, 2023 01:00 PM [place]ORY [place]ONE [place] [facility] May 18, 2023 02:30 PM [place]ORY [place]ONE [place] [facility] Jun 27, 2023 01:30 PM AM[place]UL[place]ORY [place] [facility] Social History: Smoking Status (Most current) and Tobacco Use (All prior to encounter date) This section includes the most current, and the historical, smoking and tobacco- related health factors from the NE facility where the Encounter took place. Current Smoking Status This section includes the most current smoking, or tobacco-related health factor, from the NE facility where the Encounter took place. Date/Time Current Smoking Status Comment Facil ity Feb 01, 2022 01:00 PM VA-TOBACCO FORMER USER [facility] Tobacco Use History This section includes a history of the smoking, or tobacco-related health factors, that were collected on or before the date of the Encounter. The data comes from the NE facility where the Encounter took place. Date/Time Smoking Status/Tobacco Use Comment F acility Feb 01, 2022 01:00 PM VA-TOBACCO QUIT 15 YRS OR MORE [facility] Feb 02, 2021 01:00 PM VA-TOBACCO FORMER USER [facility] Feb 02, 2021 01:00 PM VA-TOBACCO QUIT 15 YRS OR MORE [facility] Dec 12, 2019 01:25 PM VA-TOBACCO FORMER USER [facility] Dec 12, 2019 01:25 PM VA-TOBACCO QUIT 15 YRS OR MORE [facility] Jun 21, 2018 11:16 AM VA-TOBACCO FORMER USER [facility] Jun 21, 2018 11:16 AM VA-TOBACCO QUIT 15 YRS OR MORE [facility] September 15, 2017 05:29 AM INPT NO TOBACCO USE IN LAST 30 D [facility] Jun 29, 2017 02:21 PM FORMER TOBACCO USER 7Y OR GREATE R [facility] September 16, 2016 05:29 AM INPT NO TOBACCO USE IN LAST 30 D [facility] May 06, 2016 10:21 AM FORMER TOBACCO USER 7Y OR GREATE R [facility] Mar 24, 2016 11:54 AM INPT NO TOBACCO USE IN LAST 30 D [facility] Jun 23, 2015 10:20 AM FORMER TOBACCO USER 7Y OR GREATE R [facility] Jul 04, 2014 02:41 PM FORMER TOBACCO USER 7Y OR GREATE R [facility] Dec 23, 2010 02:12 PM LIFETIME NON-TOBACCO USER [facility] Dec 18, 2010 05:07 PM FORMER TOBACCO USER 7Y OR GREATE R [facility] May 26, 2006 02:20 PM FORMER TOBACCO USER 7Y OR GREATE R [facility] Advance Directives: All historical and current Section Date Range: From patient's date of to the date document was created. This section includes ALL of a patient's completed or amended NE Advance and Rescinded Directives. The entries below indicate that a directive exists for the patient, but an actual copy is not included with this document. The data comes from all [facility]. Date Advance Directives Provider Source Jul 15, 2016 ADVANCE DIRECTIVE ARIEL TREVINO [facility] Jul 15, 2016 ADVANCE DIRECTIVE DISCUSSION MAUREEN TREVINO [facility] Mar 22, 2016 CLINICAL WARNING CRISTIANOGERARDPRUDENCIO [facility] Feb 05, 2011 [facility] Dec 17, 2010 CLINICAL WARNING QUE CAMERON [facility] Aug 26, 2003 ADVANCE DIRECTIVE ELGIN HOOPER [facility] Radiology Reports: +/- 30 days of [...] the Encounter. The data comes from all [place] treatment facilities. Date/Time Radiology Report Provider Source Jan 14, 2023 02:16 PM SEGMENTALS/ELAYNE: NANDA PANDYA [id number] -[id number] M Ex Date: JAN 14, 2023@14:16 Req Phys: NONA PAULINO Loc: [facility] PACT ADELAIDA PHONE (Req'g Loc) Img Loc: VASCULAR LAB PROCEDURES Service: Unknown (Case [id number] COMPLETE) SEGMENTALS/ELAYNE (VAS Detailed) CPT:16427 Reason for Study: Concern for decreased blood flow in feet Clinical History: Please note that this study requires a 60min apt. time. IS NOT under investigation for COVID-19 or is COVID-19 negative Concern for decreased blood flow in both feet per [facility] podiatry. Responsible provider name and phone number to notify for critical findings if other than user placing the order and pager listed below: User placing orders pager: [phone] LAST CREATININE 1.0 (06/08/22) Report Status: Verified Date Reported: JAN 14, 2023 Date Verified: JAN 14, 2023 Optical Fabrication Technician E-Sig:/ES/ADORE MOE MD Report: Bilateral Lower Extremity [...] of arterial disease. First toe PPG: Normal. IErick, have reviewed the images and report. Primary Interpreting Staff: ADORE MOE MD, RADIOLOGIST (Optical Fabrication Technician) Primary Interpreting Resident: ADORE ROBINS, , UNDERWATER HUNTER /ADORE SCHMIDT [facility] Encounter Notes: All associated encounter notes This section contains the clinical notes associated to the Encounter. Date/Time Encounter Note(s) Provider Source Jan 11, 2023 04:55 PM ADDENDUM: LOCAL TITLE: Addendum STANDARD TITLE: ADDENDUM DATE OF NOTE: JAN 11, 2023@16:55:31 ENTRY DATE: JAN 11, 2023@16:55:32 AUTHOR: DARA CÁRDENAS COSIGNER: URGENCY: STATUS: COMPLETED Pt states he has been taking Amiodorone with various side effects on his balance. He specifically states Every side effect on the list that I looked up I am experiencing. He tested negative for all vestibular tests for peripheral vertigo and was negative for postural hypotension. Notifying PCP d/t inconsistent symptoms that may be attributed to medication, as pt states he would like to have a conversation during their next appt. /es/ DARA CÁRDENAS PHYSICAL THERAPIST Signed: 01/11/2023 16:58 Receipt Acknowledged By: 01/12/2023 16: /vincenzo/ NONA PAULINO MD Staff Physician --- Original Document --- 01/11/23 PT-PROGRESS NOTE: PT tx: TE 25', SCM 15, NMR 15 PT dx: balance impairment, L shoulder pain, Evaluation Date: Nov # of VISITS: 2 # of CX/NS: 0 [place] Screen Due: NO Name Used: Killian SUBJECTIVE: Relevant PMH/personal factors impacting rehab: Active problems - Computerized Problem List is the source for the followin. Hypertension (SNOMED CT 42226213) - 24 HR BP Monitor October 2020 - avg BP 124/68, avg HR 68 2. Simple obesity (SNOMED CT 761152045) 3. Gastroesophageal reflux disease (SNOMED CT 610888496) 4. IMPOTENCE, ORGANIC 5. Asthma (SNOMED CT 576140341) 6. ANEMIA NOS 7. HEMATURIA 8. Sleep apnea (SNOMED CT 11485654) 9. Empyema, Pleural * 10. Bigeminy 11. Bradycardia * 12. Cardiomyopathy (SNOMED CT 01057891) 13. Arrhythmia (SNOMED CT 162021804) 14. Cataract nos 15. Pseudophakia 16. Benign prostatic hyperplasia (SNOMED CT 424075967) 17. Dizziness and giddiness 18. Gomez's esophagus 19. Atrial fibrillation 20. COPD - Chronic obstructive pulmonary disease Chief Concern: Pt is a 87 year old [place] who presents to PT with concerns for L shoulder pain, vertigo, and leg issues/weakness. 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 Pt felt like he never got his balance back from vertigo issues. Feels woozy when he gets up on his feet. States he has no ambition to be active. [facility]/t ongoing foot problems. Had a case of cellulitis in R leg where he mentions he almost had to amputate his leg. L arm hurt after second shot of COVID about 2 years ago. L arm pain comes in cycles. IR of L shoulder is very restricted Today: Mentions he was very bad on tuesday d/t lightheadedness. Has tightness and lightheadedness when standing up. L shoulder is inoperable. Still states it has been hurting since his second COVID shot two years ago. States the pain is manageable but the inability to use the arm is challenging. Mentions he feels listless with his balance. Mentions new medication Amiodorone has made him feel off and states Every side effect on the list that I looked up I am experiencing. Pain: Location/Description: Aching pain in L arm Intensity: 3-4/10 Worst: 10/10 Aggravating Factors: lifting it, comes and goes. Relieving Factors: had injection L arm. Previous intervention: none for shoulder, previous ANGELO with success Social History/Health Habits: Mentions doesn't do much Red Flags: No personal history of cancer. Denies any UE or LE progressive weakness, unexplained weight loss, loss of bowel/bladder control, pain with rest, fevers, chills, infections. Patient's Goal: Get shoulder to move better RELEVANT IMAGING: none for shoulder OBJECTIVE: - PROMIS 6B: Baseline PROMIS Pain Interference 6b PROMIS Pain Interference - short form 6b In the past 7 days... How much did pain interfere with your enjoyment of life? Very much (5) How much did pain interfere with your ability to concentrate? Not at all (1) How much did pain interfere with your day to day activities? Quite a bit (4) How much did pain interfere with your enjoyment of recreational activities? Somewhat (3) How much did pain interfere with doing your tasks away from home (e.g., getting groceries, running errands)? A little bit (2) How often did pain keep you from socializing with others? Never (1) Total RAW Score: 16 RAW SCORE CONVERSION TO T-SCORE: T-score value indicates how score relates to normative samples (a standardized score with a mean of 50 and a standard deviation (SD)of 10). T-Scores >=60 indicate patient is outside the normal range, being 1+ SD worse than average. --- RAW T-SCORE RAW T-SCORE 6 41 19 62.7 7 48.5 20 63.6 8 50.8 21 64.5 9 52.5 22 65.5 10 53.8 23 66.4 11 55 24 67.4 12 56.1 25 68.5 13 57.1 26 69.6 14 58.1 27 70.9 15 59.1 28 72.4 16 60 29 74.4 17 60.9 30 78.3 18 61.8 T-Score: 60 OBSERVATION: swelling in karen LE, compression socks, R 2nd hammer toe, signs of venous insufficiency including mild hemosiderin staining karen, karen great toenail infection Vitals: Sittin/74 BP, 64 HR Standin/68 BP, 80 HR Decreased sensation below mid-lakhani bilaterally Dian-Hallpike: - karen Roll test: - karen Shoulder ROM: L R Flexion: 110 170 Extension: 30 45 Abduction: 100 170 IR: Iliac crest, L3 ER: C7, T2 MMT: L R Flexion:4/5, 4+/5 Abduction: 4-/5, 4+/5 ER: 4/5 5/5 IR: 5/5 5/5 PALPATION: TTP distal deltoid on L, distal RC insertion. Special tests: Empty can: + HK: + 4 stage balance; Romberg 10 sec Semi-tandem: 10 sec Tandem: 10 sec SLS: unable Gait: with head turns, very challenging using rollator. Extreme challenge with eyes closed d/t lack of sensation. PT INTERVENTIONS: risks/benefits reviewed and verbal consent obtained for interventions Ther Ex Access Code: [email or web address] URL: [email or web address] Date: 01/11/2023 Prepared by: Dara Cárdenas Exercises - Shoulder External Rotation and Scapular Retraction with Resistance - 1 x daily - 7 x weekly - 2 sets - 10 reps - 3 sec hold - Romberg Stance with Eyes Closed - 1 x daily - 7 x weekly - 2 sets - 1 reps - 1 min hold - Standing Tandem Balance with Counter Support - 1 x daily - 7 x weekly - 2 sets - 1 reps - 1 min hold Self-Care Training: - education on self-management strategies and activity modifications including sleeping positions, frequent position changes, benefits of aerobic/graded activity for management of pain conditions - Explained 3 legged stool of balance and how we need to remove vision to bias vestibular and proprioception during balance. - Education on likely shoulder OA and how we will continue to progress balance and strength accordingly. NMR - Romberg stance x1min - Semi-tandem stance x1 min - Romberg stance x1min eyes closed - Gait with eyes closed x1 min - gait with head turns x1 min Response to Treatment: Appreciative of education of conditions, challenge with balance exercises GOALS: Additional goals to be established at next session. 1. Pt will be I in HEP for self-management of knee pain in 6-8 visits. 2. Pt will be able to improve L shoulder flexion to 165 to more easily complete ADL's around house. ASSESSMENT: [place] is a 87 y/o M presenting to [...] to address above impairments and improve QOL. 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 Pt has significant limitations in LE sensation, L shoulder ROM and strength, and increases in L shoulder pain. These limtiations are preventing him from general activities such as walking and lifting objects and performing ADL's. HEP administered, education on condition given. Will continue to progress as able. REHAB POTENTIAL: fair; based on chronicity of symptoms and patient motivation CLINICAL PRESENTATION: evolving PLAN: Continue PT x 4-6 sessions, 1x/wk to every other week for ther ex, ther act, manual therapy prn and patient education. [place] agreeable to follow up in clinic in 1 week. - Next Session: - manual therapy for improved joint mobility/ROM as indicated - progressive LE strength and proprioceptive training -Present note will serve as d/c note if vet does not present for follow-up within 8 wks Patient Education on Treatment Plan: PT role, POC, rehab expectations. Patient indicated readiness to learn, verbalizes understanding, agreement and satisfaction with the treatment plan. Denies further questions. /vincenzo/ DARA CÁRDENAS PHYSICAL THERAPIST Signed: 01/11/2023 16:54 01/12/2023 ADDENDUM STATUS: COMPLETED Mr. Pandya is followed by Dr. Burgos in cardiology, who is prescribing his amiodarone. I will cc Dr. Burgos to get his input on this. /vincenzo/ NONA PAULINO MD Staff Physician Signed: 01/12/2023 16:08 Receipt Acknowledged By: * AWAITING SIGNATURE * MARISELA BURGOS [facility] Jan 11, 2023 08:19 AM PHYSICAL THERAPY N OTE: LOCAL TITLE: PT-PROGRESS NOTE STANDARD TITLE: PHYSICAL THERAPY NOTE DATE OF NOTE: JAN 11, 2023@08:19 ENTRY DATE: JAN 11, 2023@08:19:22 AUTHOR: DARA CÁRDENAS EXP COSIGNER: URGENCY: STATUS: COMPLETED PT-PROGRESS NOTE Has ADDENDA PT tx: TE 25', SCM 15, NMR 15 PT dx: balance impairment, L shoulder pain, Evaluation Date: Nov # of VISITS: 2 # of CX/NS: 0 [place] Screen Due: NO Name Used: Killian SUBJECTIVE: Relevant PMH/personal factors impacting rehab: Active problems - Computerized Problem List is the source for the followin. Hypertension (SNOMED CT 28055713) - 24 HR BP Monitor October 2020 - avg BP 124/68, avg HR 68 2. Simple obesity (SNOMED CT 685908151) 3. Gastroesophageal reflux disease (SNOMED CT 592216518) 4. IMPOTENCE, ORGANIC 5. Asthma (SNOMED CT 286369100) 6. ANEMIA NOS 7. HEMATURIA 8. Sleep apnea (SNOMED CT 59384398) 9. Empyema, Pleural * 10. Bigeminy 11. Bradycardia * 12. Cardiomyopathy (SNOMED CT 60423394) 13. Arrhythmia (SNOMED CT 870282928) 14. Cataract nos 15. Pseudophakia 16. Benign prostatic hyperplasia (SNOMED CT 396563720) 17. Dizziness and giddiness 18. Gomez's esophagus 19. Atrial fibrillation 20. COPD - Chronic obstructive pulmonary disease Chief Concern: Pt is a 87 year old [place] who presents to PT with concerns for L shoulder pain, vertigo, and leg issues/weakness. 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 Pt felt like he never got his balance back from vertigo issues. Feels woozy when he gets up on his feet. States he has no ambition to be active. [facility]/t ongoing foot problems. Had a case of cellulitis in R leg where he mentions he almost had to amputate his leg. L arm hurt after second shot of COVID about 2 years ago. L arm pain comes in cycles. IR of L shoulder is very restricted Today: Mentions he was very bad on tuesday d/t lightheadedness. Has tightness and lightheadedness when standing up. L shoulder is inoperable. Still states it has been hurting since his second COVID shot two years ago. States the pain is manageable but the inability to use the arm is challenging. Mentions he feels listless with his balance. Mentions new medication Amiodorone has made him feel off and states Every side effect on the list that I looked up I am experiencing. Pain: Location/Description: Aching pain in L arm Intensity: 3-4/10 Worst: 02/08 Aggravating Factors: lifting it, comes and goes. Relieving Factors: had injection L arm. Previous intervention: none for shoulder, previous ANGELO with success Social History/Health Habits: Mentions doesn't do much Red Flags: No personal history of cancer. Denies any UE or LE progressive weakness, unexplained weight loss, loss of bowel/bladder control, pain with rest, fevers, chills, infections. Patient's Goal: Get shoulder to move better RELEVANT IMAGING: none for shoulder OBJECTIVE: - PROMIS 6B: Baseline PROMIS Pain Interference 6b PROMIS Pain Interference - short form 6b In the past 7 days... How much did pain interfere with your enjoyment of life? Very much (5) How much did pain interfere with your ability to concentrate? Not at all (1) How much did pain interfere with your day to day activities? Quite a bit (4) How much did pain interfere with your enjoyment of recreational activities? Somewhat (3) How much did pain interfere with doing your tasks away from home (e.g., getting groceries, running errands)? A little bit (2) How often did pain keep you from socializing with others? Never (1) Total RAW Score: 16 RAW SCORE CONVERSION TO T-SCORE: T-score value indicates how score relates to normative samples (a standardized score with a mean of 50 and a standard deviation (SD)of 10). T-Scores >=60 indicate patient is outside the normal range, being 1+ SD worse than average. --- RAW T-SCORE RAW T-SCORE 6 41 19 62.7 7 48.5 20 63.6 8 50.8 21 64.5 9 52.5 22 65.5 10 53.8 23 66.4 11 55 24 67.4 12 56.1 25 68.5 13 57.1 26 69.6 14 58.1 27 70.9 15 59.1 28 72.4 16 60 29 74.4 17 60.9 30 78.3 18 61.8 T-Score: 60 OBSERVATION: swelling in karen LE, compression socks, R 2nd hammer toe, signs of venous insufficiency including mild hemosiderin staining karen, karen great toenail infection Vitals: Sittin/74 BP, 64 HR Standin/68 BP, 80 HR Decreased sensation below mid-lakhani bilaterally [place]-Hallpike: - karen Roll test: - karen Shoulder ROM: L R Flexion: 110 170 Extension: 30 45 Abduction: 100 170 IR: Iliac crest, L3 ER: C7, T2 MMT: L R Flexion:4/5, 4+/5 Abduction: 4-/5, 4+/5 ER: 4/5 5/5 IR: 5/5 5/5 PALPATION: TTP distal deltoid on L, distal RC insertion. Special tests: Empty can: + HK: + 4 stage balance; Romberg 10 sec Semi-tandem: 10 sec Tandem: 10 sec SLS: unable Gait: with head turns, very challenging using rollator. Extreme challenge with eyes closed d/t lack of sensation. PT INTERVENTIONS: risks/benefits reviewed and verbal consent obtained for interventions Ther Ex Access Code: [email or web address] URL: [email or web address] Date: 01/11/2023 Prepared by: Dara Cárdenas Exercises - Shoulder External Rotation and Scapular Retraction with Resistance - 1 x daily - 7 x weekly - 2 sets - 10 reps - 3 sec hold - Romberg Stance with Eyes Closed - 1 x daily - 7 x weekly - 2 sets - 1 reps - 1 min hold - Standing Tandem Balance with Counter Support - 1 x daily - 7 x weekly - 2 sets - 1 reps - 1 min hold Self-Care Training: - education on self-management strategies and activity modifications including sleeping positions, frequent position changes, benefits of aerobic/graded activity for management of pain conditions - Explained 3 legged stool of balance and how we need to remove vision to bias vestibular and proprioception during balance. - Education on likely shoulder OA and how we will continue to progress balance and strength accordingly. NMR - Romberg stance x1min - Semi-tandem stance x1 min - Romberg stance x1min eyes closed - Gait with eyes closed x1 min - gait with head turns x1 min Response to Treatment: Appreciative of education of conditions, challenge with balance exercises GOALS: Additional goals to be established at [...] to address above impairments and improve QOL. 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 Pt has significant limitations in LE sensation, L shoulder ROM and strength, and increases in L shoulder pain. These limtiations are preventing him from general activities such as walking and lifting objects and performing ADL's. HEP administered, education on condition given. Will continue to progress as able. REHAB POTENTIAL: fair; based on chronicity of symptoms and patient motivation CLINICAL PRESENTATION: evolving PLAN: Continue PT x 4-6 sessions, 1x/wk to every other week for ther ex, ther act, manual therapy prn and patient education. [place] agreeable to follow up in clinic in 1 week. - Next Session: - manual therapy for improved joint mobility/ROM as indicated - progressive LE strength and proprioceptive training -Present note will serve as d/c note if vet does not present for follow-up within 8 wks Patient Education on Treatment Plan: PT role, POC, rehab expectations. Patient indicated readiness to learn, verbalizes understanding, agreement and satisfaction with the treatment plan. Denies further questions. /vincenzo/ DARA CÁRDENAS PHYSICAL THERAPIST Signed: 01/11/2023 16:54 01/11/2023 ADDENDUM STATUS: COMPLETED Pt states he has been taking Amiodorone with various side effects on his balance. He specifically states Every side effect on the list that I looked up I am experiencing. He tested negative for all vestibular tests for peripheral vertigo and was negative for postural hypotension. Notifying PCP d/t inconsistent symptoms that may be attributed to medication, as pt states he would like to have a conversation during their next appt. /vincenzo/ DARA ÁCRDENAS PHYSICAL THERAPIST Signed: 01/11/2023 16:58 Receipt Acknowledged By: 01/12/2023 16:09 /vincenzo/ NONA PAULINO MD Staff Physician 01/12/2023 ADDENDUM STATUS: COMPLETED Mr. Pandya is followed by Dr. Burgos in cardiology, who is prescribing his amiodarone. I will cc Dr. Burgos to get his input on this. /vincenzo/ NONA PAULINO MD Staff Physician Signed: 01/12/2023 16:08 Receipt Acknowledged By: * AWAITING SIGNATURE * MARISELA BURGOS [facility]
--- OUTSIDE RECORDS SUMMARY | 2023-10-26 17:09 | XMS_ITS | Encounter Summary ---
Author Name [facility] Organization Department of [facility] Address [address] [place] [address] Care Team Providers Care Clamp Operator Name Role Phone NONA PAULINO Primary Care Provider [facility] [place] Insurance Providers: All historical and current Section Date Range: From patient's date of to the date document was created. This section includes the names of all active insurance providers for the patient. Insurance Provider Type of Coverage Plan Name Start of Policy Coverage End of Policy Coverage Group Number Member ID Insurance Provider's Telephone Number Policy Mandel's Name Patient's Relationship to Policy Mandel [facility] (WNR) MEDICARE ADVANTAGE MCR (WNR) May 02, 2016 [id number] [phone] Duarte PANDYA PATIENT [facility] (WNR) MEDICARE ADVANTAGE [facility] (WNR) May 02, 2016 [id number] [phone] Duarte PANDYA PATIENT Selected Encounter This section includes the information on record at [place] for the Encounter. Date/Time Encounter Type Encounter Description Reason Pro vider Source IHE Encounter Template Text not used by [facility] Advance Directives: All historical and current Section Date Range: From patient's date of to the date document was created. This section includes ALL of a patient's completed or amended [place] Advance and Rescinded Directives. The entries below indicate that a directive exists for the patient, but an actual copy is not included with this document. The data comes from all [place] facilities. Date Advance Directives Provider Source Jul 15, 2016 ADVANCE DIRECT[address] [facility] Jul 15, 2016 ADVANCE DIRECTIVE DISCUSSION MAUREEN TREVINO [facility] Mar 22, 2016 CLINICAL WARNING [facility] Feb 05, 2011 [facility] Dec 17, 2010 CLINICAL WARNING QUE [facility]ER[facility] Aug 26, 2003 ADVANCE DIRECTIVE ELGIN HOOPER [facility]
--- OUTSIDE RECORDS SUMMARY | 2023-10-26 17:09 | XMS_ITS | Encounter Summary ---
Author Name [employer] [facility] [employer] Organization [facility] [employer] [employer] Address [address] [place] [address] Care Team Providers Care Cooling Tower Operator Name Role Phone NONA PAULINO Primary Care Provider [facility] Insurance Providers: All historical and [...] Mandel's Name Patient's Relationship to Policy Mandel [facility] (WNR) MEDICARE ADVANTAGE [facility] (R) May 02, 2016 [id number] [phone] Duarte WARNER PATIENT [facility] (WNR) MEDICARE ADVANTAGE [facility] (WNR) May 02, 2016 [id number] [phone] Duarte WARNER PATIENT Selected Encounter This section includes the information on record at [place] for the Encounter. Date/Time Encounter Type Encounter Description Reason Provider Source Jan 17, 2023 01:00 PM OFFICE O/P EST HI 40-54 MIN PRIMARY CARE/MEDICINE ICD-10-CM R42 Dizziness and giddiness [facility] Encounter Template Text not used by [place] Assessments - Encounter Diagnoses This section includes the primary and secondary diagnoses documented for the Encounter. Date/Time Primary/Secondary Diagnosis Diagnosis Name Provider Source Jan 17, 2023 02:30 PM PRIMARY Dizziness and giddiness LES PAULINO [facility] Jan 17, 2023 02:30 PM SECONDARY Cardiac arrhythmia, unspecified [facility] Jan 17, 2023 02:30 PM SECONDARY Edema, unspecified [facility] Jan 17, 2023 02:30 PM SECONDARY Obesity, unspecified [facility] Plan of Treatment: Future Appointments (+ 6 months) and Future Tests (+/- 45 days) The Plan of Treatment section includes future care activities for the patient from [facility] [place] [facility] This section includes future appointments and future orders which are active, pending or scheduled. Future Appointments This section includes appointments that were scheduled to occur 6 months from the date of the Encounter, up to a maximum of 20 appointments. The data comes from all [place] treatment [facility]. Appointment Date/Time Appointment Type Appointme nt Facility Name Jan 19, 2023 02:00 PM AMBULATORY - SURGERY [facility] Jan 27, 2023 02:30 PM AMBULATORY - SURGERY [facility] Jan 27, 2023 03:30 PM AMBULATORY - REHAB MEDICIN E [facility] Feb 15, 2023 03:30 PM AMBULATORY - REHAB MEDICIN E [facility] Mar 09, 2023 02:30 PM AMBULATORY - REHAB MEDICIN E [facility] Mar 10, 2023 11:30 AM [facility] Mar 16, 2023 02:30 PM AMBULATORY - NONE [facility] Apr 13, 2023 12:00 PM AMBULATORY - NONE [facility] Apr 14, 2023 09:00 AM AMBULATORY - NONE [facility] Apr 26, 2023 05:00 PM AMBULATORY - NONE [facility] May 17, 2023 02:00 PM AMBULATORY - MEDICINE [facility] May 17, 2023 02:30 PM AMBULATORY - MEDICINE [facility] May 18, 2023 01:00 PM AMBULATORY - NONE [facility] May 18, 2023 02:30 PM [facility]ULATORY - NONE [facility] Jun 27, 2023 01:30 PM [facility] Vital Signs: All taken on the encounter date This section contains inpatient and outpatient Vital Signs collected on the date of the Encounter. Date/Time Temperature Pulse Blood Pressure Respiratory Rate SP02 Pain Height Weight Body Mass Index Source Jan 17, 2023 01:14 PM 63 /min 137/78 mm[Hg] [facility] Jan 17, 2023 01:07 PM 97.6 F 66 /min 144/75 mm[Hg] 17 /min 97 % 0 67 in 278 lb 44 [facility] Social History: Smoking Status (Most current) and Tobacco Use (All prior to encounter date) This section includes the most current, and the historical, smoking and tobacco- related health factors from the [place] facility where the Encounter took place. Current Smoking Status This section includes the most current smoking, or tobacco-related health factor, from the [place] facility where the Encounter took place. Date/Time Current Smoking Status Comment Facil ity Jan 17, 2023 01:00 PM VA-TOBACCO FORMER USER [facility] Tobacco Use History This section includes a history of the smoking, or tobacco-related health factors, that were collected on or before the date of the Encounter. The data comes from the [place] facility where the Encounter took place. Date/Time Smoking Status/Tobacco Use Comment F acility Jan 17, 2023 01:00 PM VA-TOBACCO QUIT 15 YRS OR MORE [facility] Feb 01, 2022 01:00 PM VA-TOBACCO FORMER USER [facility] Feb 01, 2022 01:00 PM VA-TOBACCO QUIT 15 YRS OR MORE [facility] Feb 02, 2021 01:00 PM VA-TOBACCO FORMER USER [facility] Feb 02, 2021 01:00 PM VA-TOBACCO QUIT 15 YRS OR MORE [facility] Dec 12, 2019 01:25 PM VA-TOBACCO FORMER USER [facility] Dec 12, 2019 01:25 PM VA-TOBACCO QUIT 15 YRS OR MORE [facility] Jun 21, 2018 11:16 AM VA-TOBACCO FORMER USER [facility] Jun 21, 2018 11:16 AM VA-TOBACCO QUIT 15 YRS OR MORE [facility] September 15, 2017 05:29 AM INPT NO TOBACCO USE IN LAST 30 D AYS [facility] Jun 29, 2017 02:21 PM FORMER TOBACCO USER 7Y OR GREATE R [facility] September 16, 2016 05:29 AM INPT NO TOBACCO USE IN LAST 30 D [facility] May 06, 2016 10:21 AM FORMER TOBACCO USER 7Y OR GREATE R [facility] Mar 24, 2016 11:54 AM INPT NO TOBACCO USE IN LAST 30 D [facility] Jun 23, 2015 10:20 AM FORMER TOBACCO USER 7Y OR GREATE R [facility] Jul 04, 2014 02:41 PM FORMER TOBACCO USER 7Y OR GREATE R [facility] Dec 23, 2010 02:12 PM LIFETIME NON-TOBACCO USER [facility] Dec 18, 2010 05:07 PM FORMER TOBACCO USER 7Y OR GREATE R [facility] May 26, 2006 02:20 PM FORMER TOBACCO USER 7Y OR GREATE R [facility] Advance Directives: All historical and current Section Date Range: From patient's date of to the date document was created. This section includes ALL of a patient's completed or amended [place] Advance and Rescinded Directives. The entries below indicate that a directive exists for the patient, but an actual copy is not included with this document. The data comes from all [facility]. Date Advance Directives Provider Source Jul 15, 2016 ADVANCE DIRECTIVE ARIEL TREVINO [facility] Jul 15, 2016 ADVANCE DIRECTIVE DISCUSSION MAUREEN TREVINO [facility] Mar 22, 2016 CLINICAL WARNING PRUDENCIO TYLER [facility] Feb 05, 2011 CLINICAL WARNING [facility] Dec 17, 2010 CLINICAL WARNING QUE CAMERON [facility] Aug 26, 2003 [facility]IVE [facility] Radiology Reports: +/- 30 days of the [...] the Encounter. The data comes from all [facility] facilities. Date/Time Radiology Report Provider Source Jan 14, 2023 02:16 PM SEGMENTALS/ELAYNE: NANDA WARNER [id number] -1935 M [facility] Date: JAN 14, 2023@14:16 Req Phys: NONA PAULINO Lyudmila Loc: [facility] PACT ADELAIDA PHONE (Req'g Loc) Img Loc: VASCULAR LAB PROCEDURES Service: Unknown (Case [id number] COMPLETE) SEGMENTALS/ELAYNE (VAS Detailed) CPT:54244 Reason for Study: Concern for decreased blood flow in feet Clinical History: Please note that this study requires a 60min apt. time. IS NOT under investigation for COVID-19 or is COVID-19 negative Concern for decreased blood flow in both feet per [facility] podiatry. Responsible provider name and phone number to notify for critical findings if other than user placing the order and pager listed below: User placing orders pager: [phone] LAST CREATININE 1.0 (06/08/22) Report Status: Verified Date Reported: JAN 14, 2023 Date Verified: JAN 14, 2023 Adult And Pediatric Neurologist E-Sig:/ES/ADORE MOE MD Report: Bilateral Lower Extremity [...] Primary Interpreting Staff: ADORE MOE MD, RADIOLOGIST (Adult And Pediatric Neurologist) Primary Interpreting Resident: ADORE ROBINS, , SCHOOL CROSSING GUARD /ADORE SCHMIDT [facility] Encounter Notes: All associated encounter notes This section contains the clinical notes associated to the Encounter. Date/Time Encounter Note(s) Provider Source Jan 21, 2023 03:34 PM LETTERS: LOCAL TITLE: FOLLOW UP RESULTS LETTER STANDARD TITLE: LETTERS DATE OF NOTE: JAN 21, 2023@15:34 ENTRY DATE: JAN 21, 2023@15:34:52 AUTHOR: NONA PAULINO EXP COSIGNER: URGENCY: STATUS: COMPLETED [facility] [address] [place] [address] Dec NANDA WARNER [address] [facility] [id number] Dear : I am writing to inform you of the results of testing that you had done recently at the [facility]. SEGMENTALS/ELAYNE (VAS Detailed) CPT:72270 Reason for Study: Concern for decreased blood flow in feet Report: Bilateral Lower Extremity Ankle Brachial Indices [...] of arterial disease. First toe PPG: Normal. Additional Comments: Good news, Mr. Warner, your recent vascular test shows no significant blockages in your legs. If you have any further questions or problems, please contact our nursing staff or provider at the following number: [phone]. SincerelNONA moy MD Staff Physician NONA PAULINO [facility] Jan 17, 2023 02:09 PM INTERNAL MEDICINE NOTE: LOCAL TITLE: MEDICINE CLINIC NOTE STANDARD TITLE: INTERNAL MEDICINE NOTE DATE OF NOTE: JAN 17, 2023@14:09 ENTRY DATE: JAN 17, 2023@14:13:11 AUTHOR: NONA PAULINO EXP COSIGNER: URGENCY: STATUS: COMPLETED Chief Complaint: Follow-up HPI: 87-year-old male presents to clinic today for follow-up on multiple issues. 1. Persistent dizziness and lightheadedness. Patient has had an extensive work-up for this over the past year. This has included physical therapy evaluation, neurology evaluation, brain MRI, Holter monitor, and stress test. Nothing has pointed to a particular etiology to this point. There is some concern that the amiodarone that the patient is taking may be contributing to the symptoms, in fact, some of the symptoms he has had are in fact found with this medication. 2. Healing foot ulcer on right lateral fifth digit. Patient has been seen by a local tape calender for this. Specific diabetic shoes with inserts have been requested. 3. Leg edema. Patient has noted worsening leg edema recently. He has been eating more salt in his diet. He enjoys freshly grown tomatoes with salt as well as baked potatoes with salt. This may be contributing to some of the discomfort he has in his feet and legs. No increase shortness of breath from baseline. 4. Probiotics. Patient has been on probiotics since his leg infection last year. He was on extensive antibiotics at the time. He is considering whether he should continue taking these pills or not. Past medical history/Active Problems: Active Problems: Active problems - Computerized Problem List is the source for the followin. Hypertension (SNOMED CT 31218033) - 24 HR BP Monitor October 2020 - avg BP 124/68, avg HR 68 2. Simple obesity (SNOMED CT 898466931) 3. Gastroesophageal reflux disease (SNOMED CT 030271159) 4. IMPOTENCE, ORGANIC 5. Asthma (SNOMED CT 527738017) 6. ANEMIA NOS 7. HEMATURIA 8. Sleep apnea (SNOMED CT 97356585) 9. Empyema, Pleural * 10. Bigeminy 11. Bradycardia * 12. Cardiomyopathy (SNOMED CT 49892898) 13. Arrhythmia (SNOMED CT 764462121) 14. Cataract nos 15. Pseudophakia 16. Benign prostatic hyperplasia (SNOMED CT 007714800) 17. Dizziness and giddiness 18. Gomez's esophagus 19. Atrial fibrillation 20. COPD - Chronic obstructive pulmonary disease Physical Exam: VS: Temp: 97.6 F [36.4 C] (01/17/2023 13:07) BP: 137/78 (01/17/2023 13:14) Pulse:63 (01/17/2023 13:14) Resp: 17 (01/17/2023 13:07) Weight: 278 lb [126.10 kg] (01/17/2023 13:07) Pain: 0 (01/17/2023 13:07) O2 Sat: 97% (01/17/2023 13:07) BMI: 43.6 General NAD HEENT: Oropharynx (OP): Clear Cardiac: Irregularly irregular. No murmurs. Chest/Lungs: Bilaterally clear Extremities: Comment: 2+ edema bilateral lower extremities, below the knees. Feet: Comments on feet: See PAVE exam. Assessment/Plan: # Dizziness and lightheadedness. Patient has had an extensive work-up with cardiology and neurology to date. I have not seen neurology's comment on the brain MRI that they ordered which was completed last month. I will reach out to the patient's neurologist to get more input. I will also reach out to the patient's informatica mdm developer to consider if amiodarone may be causing the patient's dizziness and lightheadedness. # Healing foot ulcer. Patient is followed by podiatry locally. Shoes and inserts have been ordered. # Leg edema. We will start with working with our PACT dietitian on the low-salt diet. Patient is also interested in losing weight overall and this consult may be beneficial for that as well. # Probiotics. We did discussed at some length the patient's diet and whether he incorporates foods with probiotics in them, such as yogurt. He states he does not and also states that he does not like yogurt. He states he will continue to take the probiotics for now. RTC as needed. More than 50% of this 30 min appt was spent counseling/coordinating care for the medical problems outlined above. PAVE Foot Check: A complete foot check was completed at this encounter. VISUAL INSPECTION: Includes inspection for skin breaks, deformity, erythema, trauma, pallor on elevation, dependent rubor, nail deformities, extensive callus and pitting edema. Visual exam results: Abnormal Observations: Bunions, Hammertoes, Pressure Ulcer/Injury, Thickened toenails PEDAL PULSES: Includes palpation of dorsalis and posterior tibial pulses and signs/symptoms of vascular compromise like pain, pallor, parasthesia or paralysis. Present (even if diminished) SENSORY CHECK: Includes 10 gram Monofilament ([place]) test of sensation. Intact (Greater than or equal to 80% of sites checked) Abnormal (Less than 80% of sites checked): Abnormal (decreased or absent sensation to monofilament): Comment: Decreased monofilament sensation bilaterally to the mid calf HIGH-RISK HIGH RISK FOOT EDUCATION: 1. Advised patient that extra depth footwear with soft molded inserts and braces may be required. 2. Advised patient not to walk barefoot. Instructed the patient to pay close attention to the style and fit of shoes. 3. Explained the importance of daily foot checks. Explained that loss of sensation leads to callouses. Callouses break down, which result in ulcers that may lead to gangrene and amputation. 4. Stressed the importance of daily foot hygiene. Warm (not hot) bathing of the feet, complete drying and thorough inspection for changes in the condition of the skin constitute daily foot care. Demonstrated how to do a thorough foot check. 5. Emphasized the use of clean, non-restrictive socks/stockings and well fitting shoes. 6. Stressed the importance of immediate follow-up of any foot injuries or ulcers. Explained that he/she should be non-weight bearing whenever there are lesions on the foot, to prevent cellular damage. 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 [place] has no concerns about toxic exposure(s) while serving in the Armed Forces. The /caregiver was informed that we will continue to ask this screening question every 5 years. They can contact their provider/healthcare team if they have concerns about exposures and would like to be screened sooner. Printed information was offered and provided if desired. /vincenzo/ NONA PAULINO MD Staff Physician Signed: 01/17/2023 14:30 NONA PAULINO [facility] Jan 17, 2023 01:10 PM INTERNAL MEDICINE OUTPATIENT NOTE: LOCAL TITLE: MEDICINE CLINIC NURSING NOTE STANDARD TITLE: INTERNAL MEDICINE OUTPATIENT NOTE DATE OF NOTE: JAN 17, 2023@13:10 ENTRY DATE: JAN 17, 2023@13:10:37 AUTHOR: MAMI VEGA COSIGNER: URGENCY: STATUS: COMPLETED TYPE OF VISIT: Appointment Check In Type of appointment: In-person appointment REASON FOR VISIT: Scheduled Dr appointment check in ALLERGIES: BRAZIL NUTS (Jun 12, 2006) ANIMALS (Dec 17, 2010) VITAL SIGNS: Blood Pressure: 144/75 (01/17/2023 13:07) Pulse: 66 (01/17/2023 13:07) Respiration: 17 (01/17/2023 13:07) Temperature: 97.6 F [36.4 C] (01/17/2023 13:07) Weight: 278 lb [126.10 kg] (01/17/2023 13:07) Height: 67 in [170.2 cm] (01/17/2023 13:07) BMI: 43.6 O2 Sat: 97% (01/17/2023 13:07) Pain: 0 (01/17/2023 13:07) PAIN SCREEN: Patient is not having significant pain that they wish to discuss with their provider today. MEDICATION Over the Counter/Herbal Medications: The patient states that they take some outside medications and/or herbals. General Medicine Nursing Clinic Depression Screening: Perform PHQ-2 A PHQ-2 screen was performed. The score was 0 which is a negative screen for depression. Over the past two weeks, how often have you been bothered by the following problems? 1. Little interest or pleasure in doing things Not at all 2. Feeling down, depressed, or hopeless Not at all Alcohol Use Screen (AUDIT-C): Alcohol Screen: SCREEN FOR ALCOHOL (AUDIT-C) An alcohol screening test (AUDIT-C) was negative (score=0). 1. How often did you have a drink containing alcohol in the past year? Never 2. How many drinks containing alcohol did you have on a typical day when you were drinking in the past year? Response not required due to responses to other questions. 3. How often did you have six or more drinks on one occasion in the past year? Response not required due to responses to other questions. Nursing Annual Screening: Fall History Screen During the past 12 months, have you had any falls? Patient does not report any falls in the past 12 months. MEDICATIONS: Patient is on one of the following medication classes: Antihypertensives, Antidepressants, Antipsychotics, Diuretics, or Controlled substance medication used for pain. FALL RISK ADVICE: Fall Risk Advice provided. Handout entitled Fall Prevention At Home reviewed and given to patient and/or significant other. Script Talk Screen Are you able to read your prescription bottles with your glasses, magnifiers or other aids? Yes or patient not taking any prescriptions. Skin Screen Patient reports any current pressure ulcers, a history of pressure ulcers, or a wound from a medical assistant ob gyn or Patient is bed-confined or a wheelchair-user or Patient requires assistance to transfer/change position No, Skin Screen is Negative Home Abuse/Violence Screen Is your home free of abuse and violence? Yes MOVE! Program Screen Body Mass Index (BMI)= 43.6 Rumely: Collection DT Specimen Test Name Result Units Ref Range 08/03/2021 11:44 BLOOD HEMOGLOBIN A1C 6.0 % 4.0 - 6.0 [place] Hgb A1C: No data available [place] Hgb A1C: No data available Point of Care Hgb A1C: POC HGB A1C____ Outpatient Nutrition Screen Body Mass Index (BMI)= 43.6 Rumely: Collection DT Specimen Test Name Result Units Ref Range 08/03/2021 11:44 BLOOD HEMOGLOBIN A1C 6.0 % 4.0 - 6.0 [place] Hgb A1C: No data available [place] Hgb A1C: No data available Point of Care Hgb A1C: POC HGB A1C____ Is patient's BMI less than 18.5? No Does patient have swallowing, coughing, or chewing problems affecting oral intake? No Has patient experienced unplanned weight loss or gain greater than 10 pounds over the last 2 months? No Is patient's Hgb A1C (Glycosylated Hemoglobin) greater than 9.5? Information not available Is patient receiving Total Parenteral Nutrition (TPN) or Tube Feedings? No Patient Health Education Screen BARRIERS/SPECIAL NEEDS: No barriers identified PREFERRED STYLE OF LEARNING: No preference stated Client Assistive Service (KALA) Screen Does the patient require assistance with outpatient visit? No Tobacco Use Screening: The patient is a former tobacco user. The patient quit fifteen or more years ago. /nichole VEGA LPN STAFF NURSE Signed: 01/17/2023 13:15 MAMI VEGA [facility] Jan 17, 2023 12:14 PM ADVANCE DIRECTIVE: LOCAL TITLE: AD NOTIFICATION AND SCREENING STANDARD TITLE: ADVANCE DIRECTIVE DATE OF NOTE: JAN 17, 2023@12:14 ENTRY DATE: JAN 17, 2023@12:14:30 AUTHOR: RACHEL PERERA EXP COSIGNER: URGENCY: STATUS: COMPLETED ADVANCE DIRECTIVE NOTIFICATION: Patient was given written notification of the following rights: 1. Accept or refuse any medical treatment. 2. Complete a durable power of meat hanger for health care. 3. Complete a living will. ADVANCE DIRECTIVE SCREENING: Does patient have an Advance Directive? The patient has an Advance Directive. Does the patient wish to make any changes or revoke their current Advance Directive? No changes requested at this time. /nichole PERERA Advance Plant Engineering Supervisor Signed: 01/17/2023 12:14 RACHEL PERERA [facility]
--- OUTSIDE RECORDS SUMMARY | 2023-10-26 17:09 | XMS_ITS | Encounter Summary ---
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 Date/Time Encounter Type Encounter Description Reason Provider Source Dec 30, 2022 01:30 PM SELF CARE MNGMENT TRAINING OCCUPATIONAL THERAPY ICD-10-CM Z73.6 Limitation of activities due to disability CLEMENT JONES Encounter Template Text not used by [place] Assessments - Encounter Diagnoses This section includes the primary and secondary diagnoses documented for the Encounter. Date/Time Primary/Secondary Diagnosis Diagnosis Name Provider Source Dec 30, 2022 03:55 PM PRIMARY Limitation of activities due to disability CLEMENT JONES [facility] Plan of Treatment: Future Appointments (+ 6 months) and Future Tests (+/- 45 days) The Plan of Treatment section includes future care activities for the patient from all [place] [facility] This section includes future appointments and future orders which are active, pending or scheduled. Future Appointments This section includes appointments that were scheduled to occur 6 months from the date of the Encounter, up to a maximum of 20 appointments. The data comes from all [place] treatment [facility]. Appointment Date/Time Appointment Type Appointme nt Facility Name Jan 11, 2023 01:00 PM AMBULATORY - REHAB MEDICIN E [facility] Jan 14, 2023 03:00 PM AM[place]UL[place]ORY - [place] [facility] Jan 17, 2023 01:00 PM [place] [facility] Jan 19, 2023 02:00 PM AMBULATORY [place] [facility] Jan 27, 2023 02:30 PM AMBULATORY - [place] [facility] Jan 27, 2023 03:30 PM AMBULATORY - REHAB MEDICIN E [facility] Feb 15, 2023 03:30 PM AMBULATORY - REHAB MEDICIN E [facility] Mar 09, 2023 02:30 PM AMBULATORY - REHAB MEDICIN E [facility] Mar 10, 2023 11:30 AM AM[place]UL[place]ORY [place]IC[place] [facility] Mar 16, 2023 02:30 PM AMBULATORY - NONE [place] [facility] Apr 13, 2023 12:00 PM AMBULATORY - NONE [place] [facility] Apr 14, 2023 09:00 AM AMBULATORY - NONE [place] [facility] Apr 26, 2023 05:00 PM AM[place]ULATORY - NONE [place] [facility] May 17, 2023 02:00 PM [place]ORY [place]IC[place] [facility] May 17, 2023 02:30 PM AM[place]UL[place]ORY [place]IC[place] [facility] May 18, 2023 01:00 PM AMBULATORY - NONE [place] [facility] May 18, 2023 02:30 PM AM[place]ULATORY - NONE [place] [facility] Jun 27, 2023 01:30 PM AMBULATORY - SURGERY [place] [facility] Social History: Smoking Status (Most current) and Tobacco Use (All prior to encounter date) This section includes the most current, and the historical, smoking and tobacco- related health factors from the [place] facility where the Encounter took place. Current Smoking Status This section includes the most current smoking, or tobacco-related health factor, from the [place] facility where the Encounter took place. Date/Time Current Smoking Status Comment Facil ity Feb 01, 2022 01:00 PM VA-TOBACCO FORMER USER [facility] Tobacco Use History This section includes a history of the smoking, or tobacco-related health factors, that were collected on or before the date of the Encounter. The data comes from the [place] facility where the Encounter took place. Date/Time Smoking Status/Tobacco Use Comment F acility Feb 01, 2022 01:00 PM VA-TOBACCO QUIT 15 YRS OR MORE [facility] Feb 02, 2021 01:00 PM VA-TOBACCO FORMER USER [facility] Feb 02, 2021 01:00 PM VA-TOBACCO QUIT 15 YRS OR MORE [facility] Dec 12, 2019 01:25 PM VA-TOBACCO FORMER USER [facility] Dec 12, 2019 01:25 PM VA-TOBACCO QUIT 15 YRS OR MORE [facility] Jun 21, 2018 11:16 AM VA-TOBACCO FORMER USER [facility] Jun 21, 2018 11:16 AM VA-TOBACCO QUIT 15 YRS OR MORE [facility] September 15, 2017 05:29 AM INPT NO TOBACCO USE IN LAST [address] [facility] Jun 29, 2017 02:21 PM FORMER TOBACCO USER 7Y OR GREATE R [facility] September 16, 2016 05:29 AM INPT NO TOBACCO USE IN LAST [address] [facility] May 06, 2016 10:21 AM FORMER TOBACCO USER 7Y OR GREATE R [facility] Mar 24, 2016 11:54 AM INPT NO TOBACCO USE IN LAST [address] [facility] Jun 23, 2015 10:20 AM FORMER TOBACCO USER 7Y OR GREATE R [facility] Jul 04, 2014 02:41 PM FORMER TOBACCO USER 7Y OR GREATE R [facility] Dec 23, 2010 02:12 PM LIFETIME NON-TOBACCO USER [facility] Dec 18, 2010 05:07 PM FORMER TOBACCO USER 7Y OR GREATE R [facility] May 26, 2006 02:20 PM FORMER TOBACCO USER 7Y OR GREATE R [facility] Advance Directives: All historical and current Section Date Range: From patient's date of to the date document was created. This section includes ALL of a patient's completed or amended [place] Advance and Rescinded Directives. The entries below indicate that a directive exists for the patient, but an actual copy is not included with this document. The data comes from all [facility]. Date Advance Directives Provider Source Jul 15, 2016 ADVANCE DIRECTIVE ARIEL TREVINO [facility] Jul 15, 2016 ADVANCE DIRECTIVE DISCUSSION MAUREEN TREVINO [facility] Mar 22, 2016 CLINICAL WARNING HELEN TYLERDURGA [facility] Feb 05, 2011 [facility] Dec 17, 2010 CLINICAL WARNING [facility] Aug 26, 2003 ADVANCE DIRECTIVE ELGIN HOOPER [facility] Radiology Reports: +/- 30 days [...] the Encounter. The data comes from all [place] treatment facilities. Date/Time Radiology Report Provider Source Jan 14, 2023 02:16 PM SEGMENTALS/ELAYNE: NANDA PANDYA [id number] -[id number] M Ex Date: JAN 14, 2023@14:16 Req Phys: NONA PAULINO Loc: [facility] PACT ADELAIDA PHONE (Req'g Loc) Img Loc: VASCULAR LAB PROCEDURES Service: Unknown (Case [id number] COMPLETE) SEGMENTALS/ELAYNE (VAS Detailed) CPT:21706 Reason for Study: Concern for decreased blood flow in feet Clinical History: Please note that this study requires a 60min apt. time. IS NOT under investigation for COVID-19 or is COVID-19 negative Concern for decreased blood flow in both feet per [facility] podiatry. Responsible provider name and phone number to notify for critical findings if other than user placing the order and pager listed below: User placing orders pager: [phone] LAST CREATININE 1.0 (06/08/22) Report Status: Verified Date Reported: JAN 14, 2023 Date Verified: JAN 14, 2023 Aircraft General Repair Mechanic E-Sig:/ES/ADORE MOE MD Report: Bilateral Lower Extremity [...] Primary Interpreting Staff: ADORE MOE MD, RADIOLOGIST (Aircraft General Repair Mechanic) Primary Interpreting Resident: ADORE ROBINS, , MOTORCOACH DRIVER /L ADORE MOE [facility] Nov 30, 2022 12:59 PM MRI-BRAIN (P): MUMTAZNANDA B [id number] [facility]1935 [facility] Date: NOV 30, 2022@12:59 Req Phys: EXCONDE,VIANNEY E Pat Loc: [facility] NEURO EXCONDE (Req'g Loc) Img Loc: MRI IMAGING Service: Unknown (Case [id number] COMPLETE) MRI BRAIN/BRAINSTEM W/O CONTRAST (MRI Detailed) CPT:15171 Reason for Study: cerebrovascular disease eval (Case [id number] COMPLETE) MRA HEAD W/O CONTRAST (MRI Detailed) CPT:08254 (Case [id number] COMPLETE) MRI 3D SCANNER RECONSTRUCTION (MRI Detailed) CPT:34453 Contrast Media : Gadolinium Clinical History: dizziness and unsteadiness Responsible provider name and phone number to notify for critical findings: [place] LAST CREATININE 1.0 (06/08/22) Report Status: Verified Date Reported: NOV 30, 2022 Date Verified: NOV 30, 2022 Aircraft General Repair Mechanic E-Sig:/ES/ELIAZAR ALBERT MD Report: MRI BRAIN/BRAINSTEM W/O [...] basilar artery are excluded from the imaging [id number]. A robust widely patent left posterior communicating artery is noted. No definite aneurysm is identified in the imaged intracranial compartment. Impression: 1. No evidence of acute intracranial pathology. 2. Persistent mild chronic microangiopathic change. 3. Otherwise, unremarkable brain MRI without contrast. 4. Unremarkable brain MRA without contrast, noting that the bilateral vertebral and proximal basilar arteries are excluded from the imaging [id number]. Primary Interpreting Staff: ELIAZAR ALBERT MD, RADIOLOGIST (Aircraft General Repair Mechanic) /[facility] ELIAZAR ALBERT [facility] Encounter Notes: All associated encounter notes This section contains the clinical notes associated to the Encounter. Date/Time Encounter Note(s) Provider Source Dec 30, 2022 01:28 PM OCCUPATIONAL THERA PY CONSULT: LOCAL TITLE: OCCUPATIONAL THERAPY CONSULT STANDARD TITLE: OCCUPATIONAL THERAPY CONSULT DATE OF NOTE: DEC 30, 2022@13:28 ENTRY DATE: DEC 30, 2022@13:29:04 AUTHOR: CLEMENT JONES EXP COSIGNER: URGENCY: STATUS: COMPLETED OCCUPATIONAL THERAPY EVALUATION NOTE Referring provider: Diagnosis for which patient is referred to OT: Consult request: Assess and treat - Patient seen for 30 minutes OT Evaluation 20 minutes Low Complexity Self-care treatment: 10 minutes, 1 unit ASSESSMENT: Vet is a 87 y.o. male referred to OT d/t need for AE to address LB dressing. Vet with hx of BLE knee surgery, LE weakness, impaired balance, decreased ROM, and activity tolerance impacting ADLs. Vet reports previously Mod I with LB dressing with AE, however has broken AE. Vet eager to get sock aid similar to what he had prior, however previous model no longer in stock. Extra time to review options and education on types of sock aids to max I when donning compressions socks. At this time recommend use of sock aid and LHSH to max vet's I in ADLs. Identified the following barriers: -Generalized weakness -ROM deficits -LE weakness -SOB w/ activities Vet will benefit from adaptive equipment to increase safety and functional independence and was provided education on features and benefits of equipment. Vet will benefit from the following adaptive equipment: -Long handled shoe horn (24 in.) -Flexible Sock and Stocking Aids Independent Living Aids ([employer] Item #[id number], Catalog #2087 Following assessment, vet is appropriate for and received appropriate training. Vet noted understanding and stated no other concerns at this time. Plan: No further OT needs. Discharge from OT services. PATIENT EDUCATION ON TREATMENT PLAN: Patient indicates readiness to learn, verbalizes understanding, agreement and satisfaction with the treatment plan. Denies further questions. 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, ORGANIC (ICD-9-CM 607.84) Asthma ([facility] [id number]) ANEMIA NOS (ICD-9-CM 285.9) HEMATURIA (ICD-9-CM 599.7) Sleep apnea ([facility] [id number]) Empyema, Pleural (ICD-9-CM 510.9) Bigeminy (ICD-9-CM 427.89) Bradycardia (ICD-9-CM 427.89) Cardiomyopathy ([facility] 96357033) Arrhythmia ([facility] 699904887) Cataract nos (ICD-9-CM 366.9) Pseudophakia (ICD-9-CM V43.1) Benign prostatic hyperplasia ([facility] [id number]) Dizziness and giddiness ([facility] 885400366) Gomez's esophagus ([facility] 539638454) Atrial fibrillation ([facility] 03556927) COPD - Chronic obstructive pulmonary disease ([facility] [id number]) _ SUBJECTIVE: identified concerns/problems: They just don't make my sock aid anymore and that is what I want [place] identified goal(s): to max I in LB dressing CONTEXT SOCIAL HISTORY/HOME ENVIRONMENT: Lives: alone LEVEL OF INDEPENDENCE: ADLs: -Mod I with AE -Previously used LHSH and SA ADL transfers: -Rollator Functional mobility: -Rollator IADLs: -Reports Mod I with IADLs overall -Reports no concerns, difficult gather further information as vet perseverative on AE needed for LB dressing _ OBJECTIVE: FUNCTION IN AREAS OF OCCUPATION: Activities of Daily Living (ADLs) -Ambulates to session with use of Rollator -Short rest break 1x COGNITION: -A&O, WFL, following multi-step commands, adequate insight into situation, no concerns at this time -Perseverative on types of sock aids available -Requires mod redirection in session EMOTIONAL/BEHAVIORAL: Appropriate affect, Eye contact, Acknowledges others, Initiates/engages conversation, Calm/pleasant, Cooperative Self-care Treatment: -Educated on types of sock aids available (compression vs. standard) -Reviewed set-up and positioning with various types -Education on techniques to max LB dressing I -Education on use of LHSH OCCUPATIONAL THERAPY EVALUATION COMPLEXITY Identifying and reporting the complexity level of an evaluation focuses on the first three of these factors--profile and history, assessment and determination of deficits, and clinical decision making. These three factors must be scored and defensible documentation written to support the choice of a level. (Information taken from: https://www.[employer]ota.org) PROFILE AND HISTORY (including chart view) Brief history of medical and/or therapy records relating to the presenting problem (low complexity) ASSESSMENT & PERFORMANCE DEFICITS (select all that apply): Physical & Cognition 1-3 performance deficits (Low complexity) LEVEL OF CLINICAL DECISION MAKING Problem-focused assessment(s), consideration of a limited number of treatment options, presents with no comorbidities and modification of tasks or assistance is not necessary.(Low complexity) LOW COMPLEXITY Brief history of medical/or therapy records relating to the presenting problem. An assessment(s) that identifies 1-3 performance deficits that result in activity limitation and/or participating restrictions. Includes analysis of the occupational profile, analysis of date from problem- focused assessment(s), and consideration of a limited number of treatment options. Patient presents with no comorbidities that affect occupational performance. Modification of tasks or assistance with assessment(s) is not necessary to enable completion of evaluation component. * /vincenzo/ CLEMENT JONES OCCUPATIONAL THERAPIST Signed: 12/30/2022 15:55 CLEMENT JONES [facility]
--- OUTSIDE RECORDS SUMMARY | 2023-10-26 17:10 | XMS_ITS | Encounter Summary ---
Author Name Department of Vetera Affairs Organization Department of Vetera Affairs Address [address] [place] [address] Care Team Providers Care Pattern Illustrator Name Role Phone NONA PAULINO [facility] Insurance Providers: All historical and current Section Date Range: From patient's date of to the date document was created. This section includes the names of all active insurance providers for the patient. Insurance Provider Type of Coverage Plan Name Start of Policy Coverage End of Policy Coverage Group Number Member ID Insurance Provider's Telephone Number Policy Mandel's Name Patient's Relationship to Policy Mandel [facility] (WNR) MEDICARE ADVANTAGE [facility] ([facility]) May 02, 2016 [id number] [phone] Duarte PANDYA PATIENT [facility] (WNR) MEDICARE ADVANTAGE [facility] (WNR) May 02, 2016 [id number] [phone] Duarte PANDYA PATIENT Selected Encounter This section includes the information on record at [place] for the Encounter. Date/Time Encounter Type Encounter Description Reason Provider Source Jan 19, 2023 02:00 PM OFFICE O/P EST MOD 30-39 MIN OPHTHALMOLOGY ICD-10-CM Z96.1 Presence of intraocular lens [facility] Encounter Template Text not used by [place] Assessments - Encounter Diagnoses This section includes the primary and secondary diagnoses documented for the Encounter. Date/Time Primary/Secondary Diagnosis Diagnosis Name Provider Source Jan 19, 2023 03:06 PM PRIMARY Presence of intraocular lens [facility] Jan 19, 2023 03:06 PM SECONDARY Dry eye syndrome of bilateral lacrimal glands [facility] Jan 19, 2023 03:06 PM SECONDARY Meibomian gland dysfunction of unsp, unspecified eyelid [facility] Jan 19, 2023 03:06 PM SECONDARY Unspecified astigmatism, bilateral [facility] Plan of Treatment: Future Appointments (+ 6 months) and Future Tests (+/- 45 days) The Plan of Treatment section includes future care activities for the patient from all [place] [facility] This section includes future appointments and future orders which are active, pending or scheduled. Future Appointments This section includes appointments that were scheduled to occur 6 months from the date of the Encounter, up to a maximum of 20 appointments. The data comes from all [place] treatment [facility]. Appointment Date/Time Appointment Type Appointme nt Facility Name Jan 27, 2023 02:30 PM AMBULATORY - SURGERY [facility] [place] [facility] Jan 27, 2023 03:30 PM AMBULATORY - REHAB MEDICIN E [facility] Feb 15, 2023 03:30 PM AMBULATORY - REHAB MEDICIN E [facility] Mar 09, 2023 02:30 PM AMBULATORY - REHAB MEDICIN E [facility] Mar 10, 2023 11:30 AM AM[place]UL[place]ORY [place]IC[place] [facility] Mar 16, 2023 02:30 PM AMBULATORY - NONE [place] [facility] Apr 13, 2023 12:00 PM AMBULATORY - NONE [place] [facility] Apr 14, 2023 09:00 AM AMBULATORY - NONE [place] [facility] Apr 26, 2023 05:00 PM AMBULATORY - NONE [place] [facility] May 17, 2023 02:00 PM [place]UL[place]ORY [place]IC[place] [facility] May 17, 2023 02:30 PM [place]ORY [place]IC[place] [facility] May 18, 2023 01:00 PM AM[place]UL[place]ORY - NONE [place] [facility] May 18, 2023 02:30 PM AM[place]UL[place]ORY - NONE [place] [facility] Jun 27, 2023 01:30 PM AMBULATORY - SURGERY [facility] Social History: Smoking Status (Most current) and Tobacco Use (All prior to encounter date) This section includes the most current, and the historical, smoking and tobacco- related health factors from the [place] facility where the Encounter took place. Current Smoking Status This section includes the most current smoking, or tobacco-related health factor, from the [place] facility where the Encounter took place. Date/Time Current Smoking Status Comment Facil ity Jan 17, 2023 01:00 PM VA-TOBACCO FORMER USER [facility] Tobacco Use History This section includes a history of the smoking, or tobacco-related health factors, that were collected on or before the date of the Encounter. The data comes from the [place] facility where the Encounter took place. Date/Time Smoking Status/Tobacco Use Comment F acility Jan 17, 2023 01:00 PM VA-TOBACCO QUIT 15 YRS OR MORE [facility] Feb 01, 2022 01:00 PM VA-TOBACCO FORMER USER [facility] Feb 01, 2022 01:00 PM VA-TOBACCO QUIT [...] NO TOBACCO USE IN LAST 30 D [facility] Jun 29, 2017 02:21 PM FORMER TOBACCO USER 7Y OR GREATE R [facility] September 16, 2016 05:29 AM INPT NO TOBACCO USE IN LAST 30 D [facility] May 06, 2016 10:21 AM FORMER TOBACCO USER 7Y OR GREATE R [facility] Mar 24, 2016 11:54 AM INPT NO TOBACCO USE IN LAST 30 D [facility] Jun 23, 2015 10:20 AM FORMER [...] ALL of a patient's completed or amended [place] Advance and Rescinded Directives. The entries below indicate that a directive exists for the patient, but an actual copy is not included with this document. The data comes from all [facility]. Date Advance Directives Provider Source Jul 15, 2016 ADVANCE DIRECTIVE DISCUSSION MAUREEN TREVINO [facility] Jul 15, 2016 ADVANCE DIRECTIVE ARIEL TREVINO [facility] Mar 22, 2016 CLINICAL WARNING PRUDENCIO TYLER [facility] Feb 05, 2011 CLINICAL WARNING HARVEYLIZETH GUSTAFSON [facility] Dec 17, 2010 CLINICAL WARNING KEMALSHUKRIQUE [facility] Aug 26, 2003 ADVANCE DIRECTIVE ELGIN [facility]INELA [facility] Radiology Reports: +/- 30 days of the [...] the Encounter. The data comes from all [facility] facilities. Date/Time Radiology Report Provider Source Jan 14, 2023 02:16 PM SEGMENTALS/ELAYNE: NANDA PANDYA [id number] -[id number] M Exm Date: JAN 14, 2023@14:16 Req Phys: NONA PAULINO Loc: [facility] PACT ADELAIDA PHONE (Req'g Loc) Img Loc: VASCULAR LAB PROCEDURES Service: Unknown (Case [id number] COMPLETE) SEGMENTALS/ELAYNE (VAS Detailed) CPT:12717 Reason for Study: Concern for decreased blood flow in feet Clinical History: Please note that this study requires a 60min apt. time. [place] IS NOT under investigation for COVID-19 or is COVID-19 negative Concern for decreased blood flow in both feet per [facility] podiatry. Responsible provider name and phone number to notify for critical findings if other than user placing the order and pager listed below: User placing orders pager: [phone] LAST CREATININE 1.0 (06/08/22) Report Status: Verified Date Reported: JAN 14, 2023 Date Verified: JAN 14, 2023 Rock Singer E-Sig:/ES/ADORE MOE MD Report: Bilateral Lower Extremity [...] Primary Interpreting Staff: ADORE MOE MD, RADIOLOGIST (Rock Singer) Primary Interpreting Resident: ADORE ROBINS, , LOTTERY CLERK /ADORE SCHMIDT [facility] Encounter Notes: All associated encounter notes This section contains the clinical notes associated to the Encounter. Date/Time Encounter Note(s) Provider Source Jan 19, 2023 01:37 PM OPHTHALMOLOGY TECH STEVE NOTE: LOCAL TITLE: AIRLINE MECHANIC NOTE STANDARD TITLE: AIRLINE MECHANIC NOTE DATE OF NOTE: JAN 19, 2023@13:37 ENTRY DATE: JAN 19, 2023@13:37:39 AUTHOR: CHARLENE KHAN COSIGNER: URGENCY: STATUS: COMPLETED Eye Start Exam Patient: NANDA PANDYA Sex: MALE SSN: [id number] Birthdate: [birth year] Chief complaint: patient is here for routine check today. states needing glasses more for reading tv recently. Active problems - Computerized Problem List is the source for the followin. Hypertension (SNOMED CT 68978141) - 24 HR BP Monitor October 2020 - avg BP 124/68, avg HR 68 2. Simple obesity (SNOMED CT 860323604) 3. Gastroesophageal reflux disease (SNOMED CT 049833457) 4. IMPOTENCE, ORGANIC 5. Asthma (SNOMED CT 378638085) 6. ANEMIA NOS 7. HEMATURIA 8. Sleep apnea (SNOMED CT 22051090) 9. Empyema, Pleural * 10. Bigeminy 11. Bradycardia * 12. Cardiomyopathy (SNOMED CT 15546646) 13. Arrhythmia (SNOMED CT 282194490) 14. Cataract nos 15. Pseudophakia 16. Benign prostatic hyperplasia (SNOMED CT 566824059) 17. Dizziness and giddiness 18. Gomez's esophagus 19. Atrial fibrillation 20. COPD - Chronic obstructive pulmonary disease Surgeries: SEPTEMBER 15, 2017 Proc: Right TKA SEPTEMBER 16, 2016 Proc: Left TKA Full Exam Eye Medications art tears prn OU Allergies: BRAZIL NUTS (Jun 12, 2006) ANIMALS (Dec 17, 2010) Past Medical History: Hypertension Heart disease Past eye history: Cataracts : OU Past eye surgeries: Cataract: OU Last refraction: Vision: OD:CC(with glasses) OD: 20/30+1 Pinhole: 20/ Near: 20/ Vision: OS:CC(with glasses) 0S: 20/25+1 Pinhole: 20/ Near: 20/ Current glasses: OD:-0.25 +1.01N614 Prism: OS:+0.25 +0.25X50 Prism: Add: +2.75 Refraction: Manifest: YES Automated: NO OD:-0.75 +1.74E900 20/25 OS:+0.50 +0.25X50 20/25+2 Balance: Add: +2.75 Near vision: OD : OS : OU 20 Comment: Confrontational Lopez: Full to finger counting: Right: Yes Left: Yes Extra Ocular Movement: Normal Pupils: Right: Round Left: Round Size: Right: 1 Left: 1 React to light: Right: Yes Left: Yes Afferent pupil defect: Right:No Grade: Left: No Grade: Note: Intra-ocular pressure (IOP): OD: 16 OS: 11 iCare Dilation: mydriacyl 1% and neosynephrine OU Dec@13:55 /vincenzo/ CHARLENE KHAN OUTSIDE PHYSICAL DAMAGE APPRAISER Signed: 01/19/2023 13:55 CHARLENE KHAN [facility] Jan 18, 2023 08:35 AM OPHTHALMOLOGY ATTE NDING NOTE: LOCAL TITLE: OPHTHALMOLOGY CLINIC NOTE STANDARD TITLE: OPHTHALMOLOGY ATTENDING NOTE DATE OF NOTE: JAN 18, 2023@08:35 ENTRY DATE: JAN 18, 2023@08:35:53 AUTHOR: ANNEL PEACE EXP COSIGNER: URGENCY: STATUS: COMPLETED ID x 2 CC: Annual exam HPI: States he uses one drop AT in each eye at bedtime only, and he refuses to use more than once at night. I agree with the findings as documented below: Chief complaint: patient is here for routine check today. states needing glasses more for reading tv recently. Active problems - Computerized Problem List is the source for the followin. Hypertension (SNOMED CT 06604307) - 24 HR BP Monitor October 2020 - avg BP 124/68, avg HR 68 2. Simple obesity (SNOMED CT 509317534) 3. Gastroesophageal reflux disease (SNOMED CT 982574375) 4. IMPOTENCE, ORGANIC 5. Asthma (SNOMED CT 924867751) 6. ANEMIA NOS 7. HEMATURIA 8. Sleep apnea (SNOMED CT 44070089) 9. Empyema, Pleural * 10. Bigeminy 11. Bradycardia * 12. Cardiomyopathy (SNOMED CT 34215026) 13. Arrhythmia (SNOMED CT 176249495) 14. Cataract nos 15. Pseudophakia 16. Benign prostatic hyperplasia (SNOMED CT 707731534) 17. Dizziness and giddiness 18. Gomez's esophagus 19. Atrial fibrillation 20. COPD - Chronic obstructive pulmonary disease Surgeries: SEPTEMBER 15, 2017 Proc: Right TKA SEPTEMBER 16, 2016 Proc: Left TKA Full Exam Eye Medications art tears prn OU Allergies: BRAZIL NUTS (Jun 12, 2006) ANIMALS (Dec 17, 2010) Past Medical History: Hypertension Heart disease Past eye history: Cataracts : OU Past eye surgeries: Cataract: OU Last refraction: Vision: OD:CC(with glasses) OD: 20/30+1 Pinhole: 20/ Near: 20/ Vision: OS:CC(with glasses) 0S: 20/25+1 Pinhole: 20/ Near: 20/ Current glasses: OD:-0.25 +1.48P545 Prism: OS:+0.25 +0.25X50 Prism: Add: +2.75 Refraction: Manifest: YES Automated: NO OD:-0.75 +1.44B445 20/25 OS:+0.50 +0.25X50 20/25+2 Balance: Add: +2.75 Near vision: OD : OS : OU 20 Comment: Confrontational Lopez: Full to finger counting: Right: Yes Left: Yes Extra Ocular Movement: Normal Pupils: Right: Round Left: Round Size: Right: 1 Left: 1 React to light: Right: Yes Left: Yes Afferent pupil defect: Right:No Grade: Left: No Grade: Note: Intra-ocular pressure (IOP): OD: 16 OS: 11 iCare Dilation: mydriacyl 1% and neosynephrine OU Dec@13:55 A and O x 3 ROS noncontrib Ext: SLE LL: dermatochalasis BUL, MGB OU c BLL laxity, +distraction, snapback with blink Conj: white and quiet OU K: clear, decr TBUT OU, verticillata OU AC: deep and quiet OU Iris: flat, ph dilated OU Lens: PCIOL OU DFE 78 and 20 D OU: OD: C:D 0.2, mac flat without MA or ME, AV crossing changes, periphery without holes,tears, or heme OS: C:D 0.2, mac flat without MA or ME, AV crossing changes, periphery without holes,tears, or heme A/P: 1) Meibomitis Add WC bid 2) RASHIDA/ELSA/floppy eyelids AT qid OU prn Did not want to try AT august 3) HTN Mild ret OU 4) PCIOL OU Doing well 5) Astig OU Glasses Rx given today Return 1 yr VTD MRx, sooner prn /es/ ANNEL PEACE MD STAFF SURGEON Signed: 01/19/2023 15:08 ANNEL PEACE [facility]
--- OUTSIDE RECORDS SUMMARY | 2023-10-26 17:10 | XMS_ITS | Encounter Summary ---
Author Name Department of Vetera [facility] Organization Department of Vetera [facility] Address [address] [place] [address] Care Team Providers Care Riveter Name Role Phone KIARAAZAMPATRICIANONA Primary Care Provider Unavaila [facility] Insurance Providers: All historical and current [...] Mandel's Name Patient's Relationship to Policy Mandel [facility] (WNR) MEDICARE ADVANTAGE [facility] (WNR) May 02, 2016 [id number] [phone] Duarte PANDYA PATIENT [facility] (WNR) MEDICARE [facility] (WNR) May 02, 2016 [id number] [phone] Duarte PANDYA PATIENT Selected Encounter This section includes the information on record at [place] for the Encounter. Date/Time Encounter Type Encounter Description Reason Provider Source Jan 27, 2023 03:30 PM THERAPEUTIC EXERCISES PHYSICAL THERAPY ICD-10-CM R26.89 Other abnormalities of gait and mobility DARA CÁRDENAS [place] Encounter Template Text not used by [place] Assessments - Encounter Diagnoses This section includes the primary and secondary diagnoses documented for the Encounter. Date/Time Primary/Secondary Diagnosis Diagnosis Name Provider Source Jan 27, 2023 04:28 PM PRIMARY Other abnormalities of gait and mobility DARA CÁRDENAS [facility] Jan 27, 2023 04:28 PM SECONDARY Pain in left shoulder DARA CÁRDENAS [facility] Plan of Treatment: Future Appointments (+ 6 months) and Future Tests (+/- 45 days) The Plan of Treatment section includes future care activities for the patient from all [place] [facility]. This section includes future appointments and future orders which are active, pending or scheduled. Future Appointments This section includes appointments that were scheduled to occur 6 months from the date of the Encounter, up to a maximum of 20 appointments. The data comes from all [place] treatment facilities. Appointment Date/Time Appointment Type Appointme nt Facility Name Feb 15, 2023 03:30 PM AMBULATORY - [...] 01:30 PM AM[place] [facility] Jul 28, 2023 11:00 AM [facility] Social History: Smoking Status (Most current) and Tobacco Use (All prior to encounter date) This section includes the most current, and the historical, smoking and tobacco- related health factors from the [place] facility where the Encounter took place. Current Smoking Status This section includes the most current smoking, or tobacco-related health factor, from the [place] facility where the Encounter took place. Date/Time Current Smoking Status Comment Facil ity Jan 17, 2023 01:00 PM VA-TOBACCO QUIT 15 YRS OR MORE [facility] Tobacco Use History This section includes a history of the smoking, or tobacco-related health factors, that were collected on or before the date of the Encounter. The data comes from the [place] facility where the Encounter took place. Date/Time [...] NO TOBACCO USE IN LAST 30 D [facility] Jun 29, 2017 02:21 PM FORMER TOBACCO USER 7Y OR GREATE R [facility] September 16, 2016 05:29 AM INPT NO TOBACCO USE IN LAST 30 D [facility] May 06, 2016 10:21 AM FORMER TOBACCO USER 7Y OR GREATE R [facility] Mar 24, 2016 11:54 AM INPT NO TOBACCO USE IN LAST 30 D [facility] Jun 23, 2015 10:20 AM FORMER TOBACCO [...] ALL of a patient's completed or amended [place] Advance and Rescinded Directives. The entries below indicate that a directive exists for the patient, but an actual copy is not included with this document. The data comes from all [place] facilities. Date Advance Directives Provider Source Jul 15, 2016 ADVANCE DIRECTIVE ARIEL TREVINO [place] [facility] Jul 15, 2016 ADVANCE DIRECTIVE DISCUSSION MAUREEN TREVINO [place] [facility] Mar 22, 2016 CLINICAL WARNING PRUDENCIO TYLER [facility] Feb 05, 2011 CLINICAL WARNING LIZETH GABRIEL [facility] Dec 17, 2010 CLINICAL WARNING QUE CAMERON [facility] Aug 26, 2003 ADVANCE DIRECTIVE ELGIN HOOPER [facility] Radiology Reports: +/- 30 days of the [...] the Encounter. The data comes from all [place] treatment facilities. Date/Time Radiology Report Provider Source Jan 14, 2023 02:16 PM SEGMENTALS/ELAYNE: NANDA PANDYA [id number] -1935 [facility] Date: JAN 14, 2023@14:16 Req Phys: NONA PAULINO Loc: [facility] PACT ADELAIDA PHONE (Req'g Loc) Img Loc: VASCULAR LAB PROCEDURES Service: Unknown (Case [id number] COMPLETE) SEGMENTALS/ELAYNE (VAS Detailed) CPT:93709 Reason for Study: Concern for decreased blood flow in feet Clinical History: Please note that this study requires a 60min apt. time. [place] IS NOT under investigation for COVID-19 or is COVID-19 negative Concern for decreased blood flow in both feet per [facility] podiatry. Responsible provider name and phone number to notify for critical findings if other than user placing the order and pager listed below: User placing orders pager: [phone] LAST CREATININE 1.0 (06/08/22) Report Status: Verified Date Reported: JAN 14, 2023 Date Verified: JAN 14, 2023 Parking Enforcement Manager E-Sig:/ES/ADORE MOE MD Report: Bilateral Lower Extremity [...] Primary Interpreting Staff: ADORE MOE MD, RADIOLOGIST (Parking Enforcement Manager) Primary Interpreting Resident: ADORE ROBINS, , CUSTOMER SUPPLY COORDINATOR /ADORE SCHMIDT [facility] Encounter Notes: All associated encounter notes This section contains the clinical notes associated to the Encounter. Date/Time Encounter Note(s) Provider Source Jan 27, 2023 07:40 AM PHYSICAL THERAPY N OTE: LOCAL TITLE: PT-PROGRESS NOTE STANDARD TITLE: PHYSICAL THERAPY NOTE DATE OF NOTE: JAN 27, 2023@07:40 ENTRY DATE: JAN 27, 2023@07:40:30 AUTHOR: DARA CÁRDENAS EXP COSIGNER: URGENCY: STATUS: COMPLETED PT tx: TE 25 Manual 5 PT dx: balance impairment, L shoulder pain, Evaluation Date: Nov # of VISITS: 3 # of CX/NS: 0 [place] Screen Due: NO Name Used: Killian SUBJECTIVE: Relevant PMH/personal factors impacting rehab: HTN, obesity, Asthma, cardiomyopathy, arrhythmia, dizziness, A-fib, COPD Chief Concern: Pt is a 87 year old who presents to PT with concerns for L shoulder pain, vertigo, and leg issues/weakness. 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 Pt felt like he never got his balance back from vertigo issues. Feels woozy when he gets up on his feet. States he has no ambition to be active. Had appt at foot clinic in [facility] d/t ongoing foot problems. Had a case of cellulitis in R leg where he mentions he almost had to amputate his leg. L arm hurt after second shot of COVID about 2 years ago. L arm pain comes in cycles. IR of L shoulder is very restricted Today: States his exercises are going okay. Getting the seatbelt is painful with his left arm. Shoulder pain is steadily painful. States he is still slightly listless but slightly improving his lightheadedness overall. Mentions his balance is slightly improved from last time. Interested in hopping on bicycle at home Pain: Location/Description: Aching pain in L arm Intensity: Current: 4-5/10 Aggravating Factors: lifting it, comes and goes. Relieving Factors: had injection L arm. Previous intervention: none for shoulder, previous ANGELO with success Social History/Health Habits: Mentions doesn't do much Red Flags: No personal history of cancer. Denies any UE or LE progressive weakness, unexplained weight loss, loss of bowel/bladder control, pain with rest, fevers, chills, infections. Patient's Goal: Get shoulder to move better OBJECTIVE: OBSERVATION: swelling in karen LE, compression socks, R 2nd hammer toe, signs of venous insufficiency including mild hemosiderin staining karen, karen great toenail infection Decreased sensation below mid-lakhani bilaterally Shoulder ROM: L R Flexion: 100 170 Extension: 30 45 Abduction: 70 160 PALPATION: TTP distal deltoid on L, distal RC insertion. 4 stage balance; Romberg 10 sec Semi-tandem: 10 sec Tandem: 10 sec SLS: unable Gait: with head turns, very challenging using rollator. Extreme challenge with eyes closed d/t lack of sensation. Gait speed: 0.58 m/s with 4WW PT INTERVENTIONS: risks/benefits reviewed and verbal consent obtained for interventions Ther Ex Access Code: [email or web address] URL: [email or web address] Date: 01/11/2023 Prepared by: Dara Cárdenas Exercises [...] - 1 reps - 1 min hold Trialed romberg stance with head turns x1 min Manual: - Seated grade III A/P GH glide for increased flexion ROM x2 min - Seated grade III Inferior GH glide for increased abduction ROM x2 min - Seated GH inferior MET 3x3 sec hold for increased abduction ROM Response to Treatment: Challenge with balance exercises but improved performance. no increase in shoulder ROM with manual work GOALS: 1. Pt will be I in HEP for self-management of knee pain in 6-8 visits. ONGOING 2. Pt will be able to improve L shoulder flexion to 165 to more easily complete ADL's around house. ONGOING 3. Pt will be able to improve gait speed to 0.8m/s with 4WW to be considered a safe community ambulator. ONGOING ASSESSMENT: is a 87 y/o M presenting [...] impacting 's functional independence and perform ADLs. Today pt has slightly improved balance but does not see much improvement in shoulder. Pt was able to tolerate a progression in HEP for balance and shoulder. Manual therapy trialed with little results for increased ROM. Will continue to progress HEP and trial manual as tolerated. REHAB POTENTIAL: fair; based on chronicity of symptoms and patient motivation CLINICAL PRESENTATION: evolving PLAN: Continue PT x 4-6 sessions, 1x/wk to every other week for ther ex, ther act, manual therapy prn and patient education. Tamms agreeable to follow up in clinic in 1 week. - Next Session: - manual therapy for improved joint pain/ROM as indicated - progressive LE strength and proprioceptive training - remember to add romberg with head turns -Present note will serve as d/c note if vet does not present for follow-up within 8 wks Patient Education on Treatment Plan: PT role, POC, rehab expectations. Patient indicated readiness to learn, verbalizes understanding, agreement and satisfaction with the treatment plan. Denies further questions. /vincenzo/ DARA CÁRDENAS PHYSICAL THERAPIST Signed: 01/27/2023 16:28 DARA CÁRDENAS [facility]
--- OUTSIDE RECORDS SUMMARY | 2023-10-26 17:10 | XMS_ITS | Encounter Summary ---
Author Name [facility] Organization [facility] Address [address] [place] [address] Care Team Providers Care Tin Pot Operator Name Role Phone ELIZABETHONESIMOPATRICIANONA Primary Care Provider Unavaila [facility] Insurance Providers: All historical and [...] Mandel's Name Patient's Relationship to Policy Mandel [facility] (WNR) MEDICARE ADVANTAGE MCR (WNR) May 02, 2016 [id number] [phone] Duarte PANDYA PATIENT [facility] (WNR) MEDICARE [facility] (WNR) May 02, 2016 [id number] [phone] Duarte PANDYA PATIENT Selected Encounter This section includes the information on record at [place] for the Encounter. Date/Time Encounter Type Encounter Description Reason Provider Source Jan 27, 2023 02:30 PM HEARING AID FITTING/CHECKIN G AUDIOLOGY ICD-10-CM Z46.1 Encounter for fitting and adjustment of hearing aid LASHELL ARRIOLA Encounter Template Text not used by [place] Assessments - Encounter Diagnoses This section includes the primary and secondary diagnoses documented for the Encounter. Date/Time Primary/Secondary Diagnosis Diagnosis Name Provider Source Jan 27, 2023 03:05 PM PRIMARY Encounter for fitting and adjustment of hearing aid RENALDO ARRIOLA [facility] Jan 27, 2023 03:05 PM SECONDARY [facility], [facility] Jan 27, 2023 03:05 PM SECONDARY Sensorineural hearing loss, [facility] Jan 27, 2023 03:05 PM SECONDARY [facility]innitus, [facility] Plan of Treatment: Future Appointments (+ 6 months) and Future Tests (+/- 45 days) The Plan of Treatment section includes future care activities for the patient from [facility] [place] [facility]. This section includes future appointments and future orders which are active, pending or scheduled. Future Appointments This section includes appointments that were scheduled to occur 6 months from the date of the Encounter, up to a maximum of 20 appointments. The data comes from all [place] treatment facilities. Appointment Date/Time Appointment Type Appointme nt Facility Name Feb 15, 2023 03:30 PM AMBULATORY - REHAB MEDICIN E [facility] Mar 09, 2023 02:30 PM AMBULATORY - REHAB MEDICIN E [facility] Mar 10, 2023 11:30 AM [place]IC[place] [facility] Mar 16, 2023 02:30 PM AMBUL[place]ORY - NONE [place] [facility] Apr 13, 2023 12:00 PM AMBUL[place]ORY - NONE [place] [facility] Apr 14, 2023 09:00 AM AM[facility]UL[place]ORY - NONE [place] [facility] Apr 26, 2023 05:00 PM AMBUL[facility]ORY - NONE [place] [facility] May 17, 2023 02:00 PM AMBUL[place]ORY - [place]ICINE [place] [facility] May 17, 2023 02:30 PM [place]ORY [place]IC[place] [facility] May 18, 2023 01:00 PM AM[place]ORY [place] NONE [place] [facility] May 18, 2023 02:30 PM AM[place]ORY - NONE [place] [facility] Jun 27, 2023 01:30 PM AMBULATORY - SURGERY [place] [facility] Jul 28, 2023 11:00 AM AM[place]UL[place]ORY - [place]ICINE [place] [facility] Social History: Smoking Status (Most current) and Tobacco Use (All prior to encounter date) This section includes the most current, and the historical, smoking and tobacco- related health factors from the [place] facility where the Encounter took place. Current Smoking Status This section includes the most current smoking, or tobacco-related health factor, from the [place] facility where the Encounter took place. Date/Time Current Smoking Status Comment Facil ity Jan 17, 2023 01:00 PM VA-TOBACCO FORMER USER [facility] Tobacco Use History This section includes a history of the smoking, or tobacco-related health factors, that were collected on or before the date of the Encounter. The data comes from the [place] facility where the Encounter took place. Date/Time Smoking Status/Tobacco Use Comment F acility Jan 17, 2023 01:00 PM VA-TOBACCO QUIT 15 YRS OR MORE [facility] Feb 01, 2022 01:00 PM VA-TOBACCO FORMER USER [facility] Feb 01, 2022 01:00 PM VA-TOBACCO QUIT 15 YRS OR MORE [facility] Feb 02, 2021 01:00 PM VA-TOBACCO FORMER USER [facility] Feb 02, 2021 01:00 PM VA-TOBACCO QUIT 15 YRS OR MORE [facility] Dec 12, 2019 01:25 PM VA-TOBACCO FORMER USER [facility] Dec 12, 2019 01:25 PM VA-TOBACCO QUIT 15 YRS OR MORE [facility] Jun 21, 2018 11:16 AM VA-TOBACCO FORMER USER [facility] Jun 21, 2018 11:16 AM VA-TOBACCO QUIT 15 YRS OR MORE [facility] September 15, 2017 05:29 AM INPT NO TOBACCO USE IN LAST [address] [facility] Jun 29, 2017 02:21 PM FORMER TOBACCO USER 7Y OR GREATE R [facility] September 16, 2016 05:29 AM INPT NO TOBACCO USE IN LAST [address] [facility] May 06, 2016 10:21 AM FORMER TOBACCO USER 7Y OR GREATE R [facility] Mar 24, 2016 11:54 AM INPT NO TOBACCO USE IN LAST [address] [facility] Jun 23, 2015 10:20 AM FORMER TOBACCO USER 7Y OR GREATE R [facility] Jul 04, 2014 02:41 PM FORMER TOBACCO USER 7Y OR GREATE R [facility] Dec 23, 2010 02:12 PM LIFETIME NON-TOBACCO USER [facility] Dec 18, 2010 05:07 PM FORMER TOBACCO USER 7Y OR GREATE R [facility] May 26, 2006 02:20 PM FORMER TOBACCO USER 7Y OR GREATE R [facility] Advance Directives: All historical and current Section Date Range: From patient's date of to the date document was created. This section includes ALL of a patient's completed or amended [place] Advance and Rescinded Directives. The entries below indicate that a directive exists for the patient, but an actual copy is not included with this document. The data comes from all [place] facilities. Date Advance Directives Provider Source Jul 15, 2016 ADVANCE DIRECTIVE ARIEL TREVINO [facility] Jul 15, 2016 ADVANCE DIRECTIVE DISCUSSION MAUREEN TREVINO [facility] Mar 22, 2016 CLINICAL WARNING CRISTIANOBENMICDYLANHELENDURGA [facility] Feb 05, 2011 [facility] Dec 17, 2010 CLINICAL WARNING [facility] Aug 26, 2003 ADVANCE DIRECTIVE [...] the Encounter. The data comes from all [place] treatment facilities. Date/Time Radiology Report Provider Source Jan 14, 2023 02:16 PM SEGMENTALS/ELAYNE: NANDA PANDYA [id number] -[id number] Ex Date: JAN 14, 2023@14:16 Req Phys: NONA PAULINO Loc: [facility] PACT ADELAIDA PHONE (Req'g Loc) Img Loc: VASCULAR LAB PROCEDURES Service: Unknown (Case [id number] COMPLETE) SEGMENTALS/ELAYNE (VAS Detailed) CPT:17307 Reason for Study: Concern for decreased blood flow in feet Clinical History: Please note that this study requires a 60min apt. time. [place] IS NOT under investigation for COVID-19 or is COVID-19 negative Concern for decreased blood flow in both feet per [facility]. Responsible provider name and phone number to notify for critical findings if other than user placing the order and pager listed below: User placing orders pager: [phone] LAST CREATININE 1.0 (06/08/22) Report Status: Verified Date Reported: JAN 14, 2023 Date Verified: JAN 14, 2023 Grain Unloader Machine E-Sig:/ES/ADORE MOE MD Report: Bilateral Lower Extremity [...] Primary Interpreting Staff: ADORE MOE MD, RADIOLOGIST (Grain Unloader Machine) Primary Interpreting Resident: ADORE ROBINS, , LEAD TRAINER /ADORE SCHMIDT [facility] Encounter Notes: All associated encounter notes This section contains the clinical notes associated to the Encounter. Date/Time Encounter Note(s) Provider Source Jan 27, 2023 02:34 PM AUDIOLOGY NOTE: LOCAL TITLE: AUDIOLOGY CLINIC NURSING NOTE STANDARD TITLE: AUDIOLOGY NOTE DATE OF NOTE: JAN 27, 2023@14:34 ENTRY DATE: JAN 27, 2023@14:34:16 AUTHOR: SOFIA AHYES COSIGNER: URGENCY: STATUS: COMPLETED Reason for visit: Hearing exam Effusion (drainage) in ear canals: No Recent Otalgia (pain) in ear canals? No Puritis in ear canals: No History of Ear Surgery: No History/Currently wears hearing aids: Yes AU Cerumen Removed: Yes AU soft amounts Patient tolerated procedure. Nurse Patient Education: Participant(s) can repeat instructions to Continue with current ear hygiene Refrain from using cotton swabs in ears Use Mineral oil therapy, Patient continues to use monthly PLAN: Follow up in: PRN (as needed) /vincenzo/ SOFIA HAYES LPN LICENSED PRACTICAL NURSE Signed: 01/27/2023 15:36 SOFIA HAYES [facility] Jan 27, 2023 12:16 PM AUDIOLOGY NOTE: LOCAL TITLE: AUDIOLOGY CLINIC NOTE STANDARD TITLE: AUDIOLOGY NOTE DATE OF NOTE: JAN 27, 2023@12:16 ENTRY DATE: JAN 27, 2023@12:17:37 AUTHOR: CONCEPCION HO COSIGNER: BRYON ARRIOLA URGENCY: STATUS: COMPLETED SUBJECT: Hearing evaluation AUDIOLOGY CLINIC NOTE Has ADDENDA DIAGNOSIS: Encounter for examination of ears and hearing, Bilateral Sensorineural Hearing Loss, Bilateral Tinnitus REASON FOR VISIT: THERAPEUTIC:HEARING AID EVALUATION, 60 minutes: was seen in the clinic today for a hearing evaluation. The was last seen in this clinic on 08/20/22. The is NOT Service Connected for Hearing Loss/Tinnitus. was unaccompanied. [place] would like a hearing test, he recently went to a and found he struggled more than usual understanding. He also reports the left aid battery on his way into clinic, but reports the aids have been working well otherwise. [place] wears the following hearing aids: Hearing Aids (right/left): 05/15/21 KLAEY MICHAEL CIC R [id number] 06/10/24 11/08/21 05/15/21 [facility] MICHAEL CIC L [id number] 06/10/24 11/08/21 BACKUP AIDS: 03/17/17 KALEY MUSE I2400 CIC R [id number] 03/17/17 KALEY MUSE I2400 CIC L [id number] HISTORY: History of , recreational or occupational noise exposure: Yes: worked in the [employer] in [employer], stationed in [facility] HISTORY: Concerns reported today by : Hearing loss, both ears: gradual Tinnitus, both ears: intermittent Denies any significant otologic history. 's reported hearing concerns: Restaurants/Background noise, Group situations, Family/Spouse's voice PROCEDURES: OTOSCOPY Bilaterally: Partial cerumen impaction. [place] requested ear cleaning so he is sent to the clinic nurse for cerument removal. Otoscopy following cerumen removal was clear bilaterally. Normal appearing tympanic membranes. TYMPANOMETRY: RIGHT EAR: Type A Pressure: Normal Compliance: Normal Volume: Normal LEFT EAR: Type A Pressure: Normal Compliance: Normal Volume: Normal AUDIOMETRICS: Air conduction, Bone conduction, Speech testing Transducer: Circumaural headphones Reliability: good RIGHT EAR (Hz) 250 990 527 5465 1500 2000 3000 4000 6000 8000 Air: see Audiogram display under Tools->Audiology->ROES or see JACINTA database. Bone: see Audiogram display under Tools->Audiology->ROES or see JACINTA database. LEFT EAR (Hz) 250 578 253 1644 1500 2000 3000 4000 6000 8000 Air: see Audiogram display under Tools->Audiology->ROES or see JACINTA database. Bone: see Audiogram display under Tools->Audiology->ROES or see JACINTA database. - All thresholds are in dB HL * = Masked Threshold SPEECH RECOGNITION THRESHOLD (SRT): Spondees Right: 50 dB HL Left: 55 dB HL Pure tone results were consistent with speech medical receptionist medical assistant thresholds. WORD RECOGNITION: Recorded/W-22 word list Right Ear: 72% Level: 85* dB Left Ear: 84% Level: 85* dB SUMMARY: Thresholds have decreased 5-10 dB bilaterally but configuration is stable. RIGHT EAR: Normal hearing threshold at 250 Hz sloping to severe sensorineural hearing loss with mildly impaired speech comprehension. Tympanometry reflects normal ear canal volume and tympanic membrane mobility. LEFT EAR: Normal hearing threshold at 250 Hz sloping to severe sensorineural hearing loss with mildly impaired speech comprehension. Tympanometry reflects normal ear canal volume and tympanic membrane mobility. AMPLIFICATION: HEARING AID REPROGRAMMING: -Hearing aids are both routinely cleaned. Microphone filters and wax filters are replaced. Batteries are replaced. Microphones and vents are vacuumed out. There is wax plugged in the brush hand of the left aid. After this is removed, listening check confirms both aids are working well. -Aids are connected to the fitting software and aids are reprogrammed based on the results from today's hearing test. -Gain is increased in the high frequencies in both aids. -[place] notes an immediate improvement in clarity. -Volume control is changed to 2 dB steps ranging from 10 dB up and 10 dB down from the default setting. -Deactivated autophone program. - confirms both aids sound clear and comfortable. -[place] is provided additional wax filters and has no other questions today. PLAN: - Regular follow up recommended to monitor for changes in hearing, or as medically indicated. - [place] is in agreement with this plan. I have seen and discussed the patient with my supervising practitioner, Dr. Arriola, and they agree with my assessment and plan. /nichole HO AUDIOLOGY TRAINEE Signed: 01/27/2023 15:05 /vincenzo/ SIMON CANNON STAFF ACCREDITATION MANAGER Cosigned: 01/27/2023 15:47 01/27/2023 ADDENDUM STATUS: COMPLETED [place] with bilateral sensorineural hearing loss and tinnitus was seen for a comprehensive audiologic evaluation, immittance testing and hearing aid adjustment. Results showed Sensorineural hearing loss bilaterally and normal immittance testing. Hearing aids were cleaned, checked, and adjusted. I am the provider for this encounter and participated in the evaluation of this patient. I confirmed the parks elements of the history and physical examination. Diagnosis and plan reflect my discussions and input. Patient was seen for a 60 minute appointment. /SIMON Valero STAFF ACCREDITATION MANAGER Signed: 01/27/2023 15:48 CONCEPCION HO [facility]
--- OUTSIDE RECORDS SUMMARY | 2023-10-26 17:11 | XMS_ITS | Encounter Summary ---
Author Name Department of [facility] Organization [facility] of [facility] Address [address] [place] [address] Care Team Providers Care Cheese Wrapper Name Role Phone KIARAAZAMPATRICIANONA Primary Care Provider Unavaila [facility] Insurance Providers: All historical and [...] Mandel's Name Patient's Relationship to Policy Mandel [facility] (WNR) MEDICARE ADVANTAGE MCR (WNR) May 02, 2016 [id number] [phone] Duarte PNADYA PATIENT [facility] (WNR) MEDICARE [facility] (WNR) May 02, 2016 [id number] [phone] Duarte PANDYA PATIENT Selected Encounter This section includes the information on record at [place] for the Encounter. Date/Time Encounter Type Encounter Description Reason Provider Source Mar 09, 2023 02:30 PM THERAPEUTIC EXERCISES PHYSICAL THERAPY ICD-10-CM R26.89 Other abnormalities of gait and mobility DARA CÁRDENAS [place] Encounter Template Text not used by [place] Assessments - Encounter Diagnoses This section includes the primary and secondary diagnoses documented for the Encounter. Date/Time Primary/Secondary Diagnosis Diagnosis Name Provider Source Mar 09, 2023 03:01 PM PRIMARY Other abnormalities of gait and mobility DARA CÁRDENAS [facility] Mar 09, 2023 03:01 PM SECONDARY Pain in left shoulder DARA CÁRDENAS [facility] Plan of Treatment: Future Appointments (+ 6 months) and Future Tests (+/- 45 days) The Plan of Treatment section includes future care activities for the patient from all [place] [facility] This section includes future appointments and future orders which are active, pending or scheduled. Future Appointments This section includes appointments that were scheduled to occur 6 months from the date of the Encounter, up to a maximum of 20 appointments. The data comes from all [place] treatment facilities. Appointment Date/Time Appointment Type Appointme nt Facility Name Mar 10, 2023 11:30 AM AMBULATORY [place]IC[place] [facility] Mar 16, 2023 02:30 PM AMBULATORY - NONE [place] [facility] Apr 13, 2023 12:00 PM AM[place]ORY - NONE [place] [facility] Apr 14, 2023 09:00 AM [place]ORY - NONE [place] [facility] Apr 26, 2023 05:00 PM [place]BUL[place]ORY - NONE [place] [facility] May 17, 2023 02:00 PM [place]UL[place]ORY - [place]IC[place] [facility] May 17, 2023 02:30 PM [place]BUL[place]ORY - [place]IC[place] [facility] May 18, 2023 01:00 PM [place]ORY - NONE [place] [facility] May 18, 2023 02:30 PM [place]BUL[place]ORY - NONE [place] [facility] Jun 27, 2023 01:30 PM AMBULATORY - SURGERY [place] [facility] Jul 28, 2023 11:00 AM [place]UL[place]ORY - [place]ICINE [place] [facility] Aug 15, 2023 02:00 PM AMBULATORY - SURGERY [place] [facility] Aug 15, 2023 05:20 PM AMBULATORY - REHAB MEDICIN E [facility] September 06, 2023 11:00 AM AMBULATORY - SURGERY [place] [facility] September 06, 2023 01:45 PM AMBUL[place]ORY - [place]ICINE [place] [facility] September 06, 2023 02:00 PM [place]UL[place]ORY - [place]ICINE [place] [facility] September 06, 2023 02:30 PM AMBUL[place]ORY - [place]ICINE [place] [facility] Social History: Smoking Status (Most current) and Tobacco Use (All prior to encounter date) This section includes the most current, and the historical, smoking and tobacco- related health factors from the [place] facility where the Encounter took place. Current Smoking Status This section includes the most current smoking, or tobacco-related health factor, from the [place] facility where the Encounter took place. Date/Time Current Smoking Status Comment Facil ity Jan 17, 2023 01:00 PM VA-TOBACCO FORMER USER [facility] Tobacco Use History This section includes a history of the smoking, or tobacco-related health factors, that were collected on or before the date of the Encounter. The data comes from the [place] facility where the Encounter took place. Date/Time Smoking Status/Tobacco Use Comment F acility Jan 17, 2023 01:00 PM VA-TOBACCO QUIT 15 YRS OR MORE [facility] Feb 01, 2022 01:00 PM VA-TOBACCO FORMER USER [facility] Feb 01, 2022 01:00 PM VA-TOBACCO QUIT 15 YRS OR MORE [facility] Feb 02, 2021 01:00 PM VA-TOBACCO FORMER USER [facility] Feb 02, 2021 01:00 PM VA-TOBACCO QUIT 15 YRS OR MORE [facility] Dec 12, 2019 01:25 PM VA-TOBACCO FORMER USER [facility] Dec 12, 2019 01:25 PM VA-TOBACCO QUIT 15 YRS OR MORE [facility] Jun 21, 2018 11:16 AM VA-TOBACCO FORMER USER [facility] Jun 21, 2018 11:16 AM VA-TOBACCO QUIT 15 YRS OR MORE [facility] September 15, 2017 05:29 AM INPT NO TOBACCO USE IN LAST 30 D [facility] Jun 29, 2017 02:21 PM FORMER TOBACCO USER 7Y OR GREATE R [facility] September 16, 2016 05:29 AM INPT NO TOBACCO USE IN LAST 30 D [facility] May 06, 2016 10:21 AM FORMER TOBACCO USER 7Y OR GREATE R [facility] Mar 24, 2016 11:54 AM INPT NO TOBACCO USE IN LAST 30 D [facility] Jun 23, 2015 10:20 AM FORMER TOBACCO USER 7Y OR GREATE R [facility] Jul 04, 2014 02:41 PM FORMER TOBACCO USER 7Y OR GREATE R [facility] Dec 23, 2010 02:12 PM LIFETIME NON-TOBACCO USER [facility] Dec 18, 2010 05:07 PM FORMER TOBACCO USER 7Y OR GREATE R [facility] May 26, 2006 02:20 PM FORMER TOBACCO USER 7Y OR GREATE R [facility] Advance Directives: All historical and current Section Date Range: From patient's date of to the date document was created. This section includes ALL of a patient's completed or amended [place] Advance and Rescinded Directives. The entries below indicate that a directive exists for the patient, but an actual copy is not included with this document. The data comes from all [place] facilities. Date Advance Directives Provider Source Jul 15, 2016 ADVANCE DIRECTIVE ARIEL TREVINO [facility] Jul 15, 2016 ADVANCE DIRECTIVE DISCUSSION MAUREEN TREVINO [facility] Mar 22, 2016 CLINICAL WARNING PRUDENCIO TYLER [facility] Feb 05, 2011 CLINICAL WARNING [facility] Dec 17, 2010 CLINICAL WARNING KEMALSHUKRIQUE [facility] Aug 26, 2003 ADVANCE DIRECTIVE [facility]GIN [facility] Encounter Notes: All associated encounter notes This section contains the clinical notes associated to the Encounter. Date/Time Encounter Note(s) Provider Source Mar 09, 2023 07:24 AM PHYSICAL THERAPY N OTE: LOCAL TITLE: PT-PROGRESS NOTE STANDARD TITLE: PHYSICAL THERAPY NOTE DATE OF NOTE: MAR 09, 2023@07:24 ENTRY DATE: MAR 09, 2023@07:24:06 AUTHOR: DARA CÁRDENAS EXP COSIGNER: URGENCY: STATUS: COMPLETED PT tx: SCM 15 TE 10 PT dx: balance impairment, L shoulder pain, Evaluation Date: Nov # of VISITS: 5 # of CX/NS: 0 [place] Screen Due: NO Name Used: Killian SUBJECTIVE: Relevant PMH/personal factors impacting rehab: HTN, obesity, Asthma, cardiomyopathy, arrhythmia, dizziness, A-fib, COPD Chief Concern: Pt is a 87 year old who presents to PT with concerns for L shoulder pain, vertigo, and leg issues/weakness. 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 Pt felt like he never got his balance back from vertigo issues. Feels woozy when he gets up on his feet. States he has no ambition to be active. Had appt at foot clinic in [facility] d/t ongoing foot problems. Had a case of cellulitis in R leg where he mentions he almost had to amputate his leg. L arm hurt after second shot of COVID about 2 years ago. L arm pain comes in cycles. IR of L shoulder is very restricted Today: States today is not a good day. He has been lightheaded all day today. Feels his balance continues to be good otherwise but it isn't good today. He will sometimes forget about his shoulder when it doesn't hurt, and states it is improving in both ROM and pain. He would like to be seen in the community as the weather gets unsafe to drive, and this will likely be the last PT session for him. Pain: Location/Description: Aching pain in L arm Intensity: Current: 2-3/10 at the most Aggravating Factors: lifting it, comes and goes. [...] toenail infection Decreased sensation below mid-lakhani bilaterally Vitals BP: 153/79 first, 149/83 HR: 76 first, 69 Shoulder ROM: L R Flexion: 120 170 Extension: 30 45 Abduction: 100 160 IR: L4, L2 ER: C4 C6 PALPATION: TTP distal deltoid on L, distal RC insertion. 4 stage balance; Romberg 10 sec Semi-tandem: 10 sec Tandem: 10 sec SLS: unable Gait speed: 0.65 m/s PT INTERVENTIONS: risks/benefits reviewed and verbal consent obtained for interventions Ther Ex Access Code: [email or web address] URL: [email or web address] Date: 02/15/2023 Prepared by: Dara Cárdenas Exercises - Shoulder External Rotation and Scapular Retraction with Resistance - 1 x daily - 7 x weekly - 2 sets - 15 reps - 3 sec hold - Shoulder External Rotation with Anchored Resistance - 1 x daily - 7 x weekly - 2 sets - 10 reps - Semi-Tandem Balance at Counter Top Eyes Closed - 1 x daily - 7 x weekly - 1 sets - 1 reps - 1 min hold - Gaze Stabilty (VOR) x1 Feet Together on Firm Ground With Horizontal Head Turns - 1 x daily - 7 x weekly - 1 sets - 1 reps - 1 min hold Self-care - 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 - education of sensory components of balance and how we keep challenging different components. - discussion about improvements that he has made and how PT in the community will continue to progress. - encouragement that he can reach out to PT with any questions if needed. Response to Treatment: Very appreciative of epsiode of care GOALS: 1. Pt will be I in [...] arm pain, and bilateral leg integumentary complaints. Today patient woke up lightheaded and is still experiencing lightheaded symptoms. His BP is higher than normal but not significant. Pt was told he could go to ER for his symptoms, but pt denied stating he is talking to his PCP tomorrow. Pt has demonstrated an improvement in pain, strength, ROM, and balance. He was making progress towards goals, however not all goals met here as patient is likely transitioning care to community to continue with PT. PCP will be alerted for community care referral. All questions addressed, patient very appreciative of care. Patient will be discharged at this time. REHAB POTENTIAL: fair; based on chronicity of symptoms and patient motivation CLINICAL PRESENTATION: evolving PLAN: DC Patient Education on Treatment Plan: PT role, POC, rehab expectations. Patient indicated readiness to learn, verbalizes understanding, agreement and satisfaction with the treatment plan. Denies further questions. /vincenzo/ DARA CÁRDENAS PHYSICAL THERAPIST Signed: 03/09/2023 15:01 DARA CÁRDENAS [facility]
--- OUTSIDE RECORDS SUMMARY | 2023-10-26 17:11 | XMS_ITS | Encounter Summary ---
Author Name Department of [facility] Organization Department of [facility] Address [address] [place] [address] Care Team Providers Care Commissioner Conservation Of Resources Name Role Phone ELIZABETHONESIMOPATRICIANONA Primary Care Provider Unavaila [facility] Insurance Providers: All historical and [...] Mandel's Name Patient's Relationship to Policy Mandel [facility] (WNR) MEDICARE ADVANTAGE MCR (WNR) May 02, 2016 [id number] [phone] Duarte PANDYA PATIENT [facility] (WNR) MEDICARE [facility] (WNR) May 02, 2016 [id number] [phone] Duarte PANDYA PATIENT Selected Encounter This section includes the information on record at [place] for the Encounter. Date/Time Encounter Type Encounter Description Reason Provider Source Feb 15, 2023 03:30 PM MANUAL THERAPY 1/> [facility] ICD-10-CM M25.512 Pain in left shoulder DARA CÁRDENAS Encounter Template Text not used by [facility] Assessments - Encounter Diagnoses This section includes the primary and secondary diagnoses documented for the Encounter. Date/Time Primary/Secondary Diagnosis Diagnosis Name Provider Source Feb 15, 2023 04:58 PM PRIMARY Pain in left shoulder DARA CÁRDENAS [facility] Feb 15, 2023 04:58 PM SECONDARY Other abnormalities of gait and mobility DARA CÁRDENAS [facility] Plan of Treatment: Future Appointments (+ 6 months) and Future Tests (+/- 45 days) The Plan of Treatment section includes future care activities for the patient from all [place] [facility]. This section includes future appointments and future orders which are active, pending or scheduled. Future Appointments This section includes appointments that were scheduled to occur 6 months from the date of the Encounter, up to a maximum of 20 appointments. The data comes from all [place] treatment facilities. Appointment Date/Time Appointment Type Appointme nt Facility Name Mar 09, 2023 02:30 PM AMBULATORY - REHAB [facility] Mar 10, 2023 11:30 AM [facility] Mar 16, 2023 02:30 PM [place] [facility] Apr 13, 2023 12:00 PM [place]ORY [place] [facility] Apr 14, 2023 09:00 AM [place]ORY [place] [facility] Apr 26, 2023 05:00 PM [place]ORY - [place] [facility] May 17, 2023 02:00 PM [place] [facility] May 17, 2023 02:30 PM [place]ORY [place] [facility] May 18, 2023 01:00 PM [place]ORY [place] [facility] May 18, 2023 02:30 PM [place]ORY [place]ONE [place] [facility] Jun 27, 2023 01:30 PM [place]ORY [place] [facility] Jul 28, 2023 11:00 AM [facility] Aug 15, 2023 02:00 PM AMBULATORY - SURGERY [facility] Aug 15, 2023 05:20 PM AMBULATORY - REHAB [facility] Social History: Smoking Status (Most current) and Tobacco Use (All prior to encounter date) This section includes the most current, and the historical, smoking and tobacco- related health factors from the [place] facility where the Encounter took place. Current Smoking Status This section includes the most current smoking, or tobacco-related health factor, from the [place] facility where the Encounter took place. Date/Time Current Smoking Status Comment Facil ity Jan 17, 2023 01:00 PM VA-TOBACCO FORMER USER [facility] Tobacco Use History This section includes a history of the smoking, or tobacco-related health factors, that were collected on or before the date of the Encounter. The data comes from the [place] facility where the Encounter took place. Date/Time Smoking Status/Tobacco Use Comment F acility Jan 17, 2023 01:00 PM VA-TOBACCO QUIT 15 YRS OR MORE [facility] Feb 01, 2022 01:00 PM VA-TOBACCO FORMER USER [facility] Feb 01, 2022 01:00 PM VA-TOBACCO QUIT 15 YRS OR MORE [facility] Feb 02, 2021 01:00 PM VA-TOBACCO FORMER USER [facility] Feb 02, 2021 01:00 PM VA-TOBACCO QUIT 15 YRS OR MORE [facility] Dec 12, 2019 01:25 PM VA-TOBACCO FORMER USER [facility] Dec 12, 2019 01:25 PM VA-TOBACCO QUIT 15 YRS OR MORE [facility] Jun 21, 2018 11:16 AM VA-TOBACCO FORMER USER [facility] Jun 21, 2018 11:16 AM VA-TOBACCO QUIT 15 YRS OR MORE [facility] September 15, 2017 05:29 AM INPT NO TOBACCO USE IN LAST 30 D [facility] Jun 29, 2017 02:21 PM FORMER TOBACCO USER 7Y OR GREATE R [facility] September 16, 2016 05:29 AM INPT NO TOBACCO USE IN LAST 30 D [facility] May 06, 2016 10:21 AM FORMER TOBACCO USER 7Y OR GREATE R [facility] Mar 24, 2016 11:54 AM INPT NO TOBACCO USE IN LAST 30 D [facility] Jun 23, 2015 10:20 AM FORMER TOBACCO USER 7Y OR GREATE R [facility] Jul 04, 2014 02:41 PM FORMER TOBACCO USER 7Y OR GREATE R [facility] Dec 23, 2010 02:12 PM LIFETIME NON-TOBACCO USER [facility] Dec 18, 2010 05:07 PM FORMER TOBACCO USER 7Y OR GREATE R [facility] May 26, 2006 02:20 PM FORMER TOBACCO USER 7Y OR GREATE R [facility] Advance Directives: All historical and current Section Date Range: From patient's date of to the date document was created. This section includes ALL of a patient's completed or amended [place] Advance and Rescinded Directives. The entries below indicate that a directive exists for the patient, but an actual copy is not included with this document. The data comes from all [place] facilities. Date Advance Directives Provider Source Jul 15, 2016 ADVANCE DIRECTIVE ARIEL TREVINO [place] [facility] Jul 15, 2016 ADVANCE DIRECTIVE DISCUSSION MAUREEN TREVINO [place] [facility] Mar 22, 2016 CLINICAL WARNING HELEN TYLERDURGA [place] [facility] Feb 05, 2011 CLINICAL WARNING LIZETH GABRIEL [facility] Dec 17, 2010 CLINICAL WARNING QUE CAMERON [facility] Aug 26, 2003 ADVANCE DIRECTIVE ELGIN HOOPER [facility] Encounter Notes: All associated encounter notes This section contains the clinical notes associated to the Encounter. Date/Time Encounter Note(s) Provider Source Feb 15, 2023 07:45 AM PHYSICAL THERAPY N OTE: LOCAL TITLE: PT-PROGRESS NOTE STANDARD TITLE: PHYSICAL THERAPY NOTE DATE OF NOTE: FEB 15, 2023@07:45 ENTRY DATE: FEB 15, 2023@07:46:01 AUTHOR: DARA CÁRDENAS EXP COSIGNER: URGENCY: STATUS: COMPLETED PT tx: TE 15 Manual 10 SCM 5 PT dx: balance impairment, L shoulder pain, Evaluation Date: Nov # of VISITS: 4 # of CX/NS: 0 [place] Screen Due: NO Name Used: Killian SUBJECTIVE: Relevant PMH/personal factors impacting rehab: HTN, obesity, Asthma, cardiomyopathy, arrhythmia, dizziness, A-fib, COPD Chief Concern: Pt is a 87 year old [place] who presents to PT with concerns for L shoulder pain, vertigo, and leg issues/weakness. 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 Pt felt like he never got his balance back from vertigo issues. Feels woozy when he gets up on his feet. States he has no ambition to be active. Had appt at foot clinic in [facility] d/t ongoing foot problems. Had a case of cellulitis in R leg where he mentions he almost had to amputate his leg. L arm hurt after second shot of COVID about 2 years ago. L arm pain comes in cycles. IR of L shoulder is very restricted Today: Mentions that he feels things are slow but slightly better. Overall states things are going okay. He mentions the last 2 nights are the best nights of sleep he's had. Mentions balance isn't too bad. Wonders how much longer he wants to do therapy, and indicates that he would like to be seen in the community. Pain: Location/Description: Aching pain in L arm Intensity: Current: 4-5/10 at the most Aggravating Factors: lifting it, [...] mid-lakhani bilaterally Shoulder ROM: L R Flexion: 110 170 Extension: 30 45 Abduction: 80 160 IR: PSIS, L2 ER: C4 C6 PALPATION: TTP distal deltoid on L, distal RC insertion. 4 stage balance; Romberg 10 sec Semi-tandem: 10 sec Tandem: 10 sec SLS: unable Gait: with head turns, very challenging using rollator. Extreme challenge with eyes closed d/t lack of sensation. PT INTERVENTIONS: risks/benefits reviewed and verbal consent obtained for interventions Ther Ex Access Code: [email or web address] URL: [email or web address] Date: 02/15/2023 Prepared by: Dara Cádrenas Exercises - Shoulder External Rotation and Scapular [...] and how we keep challenging different components. Response to Treatment: Challenge with balance exercises but improved performance. minimal improvement in shoulder pain with manual work. GOALS: 1. Pt will be I in [...] functional independence and perform ADLs. Today pt states he is slightly better today, but mentions slow improvement. 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 [place] agreeable to follow up in clinic in [...] questions. /vincenzo/ DARA CÁRDENAS PHYSICAL THERAPIST Signed: 02/15/2023 16:58 DARA CÁRDENAS [facility]
--- OUTSIDE RECORDS SUMMARY | 2023-10-26 17:11 | XMS_ITS | Encounter Summary ---
Author Name [facility] [employer] Organization [facility] Address [address] [place] [address] Care Team Providers Care Steersman Name Role Phone ELIZABETHNONA GUTHRIE Primary Care Provider Unavaila [facility] Insurance Providers: All historical and current Section Date Range: From patient's date of to the date document was created. This section includes the names of all active insurance providers for the patient. Insurance Provider Type of Coverage Plan Name Start of Policy Coverage End of Policy Coverage Group Number Member ID Insurance Provider's Telephone Number Policy Mandel's Name Patient's Relationship to Policy Mandel [facility] (WNR) MEDICARE ADVANTAGE M[employer] (WNR) May 02, 2016 [id number] [phone] Duarte PANDYA PATIENT [facility] (WNR) MEDICARE [facility] (WNR) May 02, 2016 [id number] [phone] Duarte PANDYA PATIENT Selected Encounter This section includes the information on record at NH for the Encounter. 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 Date/Time Primary/Secondary Diagnosis Diagnosis Name Provider Source Mar 16, 2023 03:43 PM PRIMARY Idiopathic progressive neuropathy BETSY GLOVER [facility] Plan of Treatment: Future Appointments (+ 6 months) and Future Tests (+/- 45 days) The Plan of Treatment section includes future care activities for the patient [facility] This section includes future appointments and future orders which are active, pending or scheduled. Future Appointments This section includes appointments that were scheduled to occur 6 months from the date of the Encounter, up to a maximum of 20 appointments. The data comes from all NH treatment facilities. Appointment Date/Time Appointment Type Appointme nt Facility Name Apr 13, 2023 12:00 PM AMBULATORY - NONE [facility] Apr 14, 2023 09:00 AM [facility] Apr 26, 2023 05:00 PM [facility] NONE [facility] May 17, 2023 02:00 PM [facility] May 17, 2023 02:30 PM [facility] May 18, 2023 01:00 PM AMBULATORY - NONE [facility] May 18, 2023 02:30 PM [facility]ONE [facility] Jun 27, 2023 01:30 PM AMBULATORY - SURGERY [facility] Jul 28, 2023 11:00 AM [facility] Aug 15, 2023 02:00 PM AMBULATORY - SURGERY [facility] Aug 15, 2023 05:20 PM AMBULATORY - REHAB MEDICIN E [facility] September 06, 2023 11:00 AM AMBULATORY - SURGERY [facility] September 06, 2023 01:45 PM [facility] September 06, 2023 02:00 PM [facility] September 06, 2023 02:30 PM AMBULATORY - MEDICINE [facility] Social History: Smoking Status (Most current) and Tobacco Use (All prior to encounter date) This section includes the most current, and the historical, smoking and tobacco- related health factors from the NH facility where the Encounter took place. Current Smoking Status This section includes the most current smoking, or tobacco-related health factor, from the NH facility where the Encounter took place. Date/Time Current Smoking Status Comment Facil ity Jan 17, 2023 01:00 PM VA-TOBACCO FORMER USER [facility] Tobacco Use History This section includes a history of the smoking, or tobacco-related health factors, that were collected on or before the date of the Encounter. The data comes from the NH facility where the Encounter took place. Date/Time Smoking Status/Tobacco Use Comment F acility Jan 17, 2023 01:00 PM VA-TOBACCO QUIT 15 YRS OR MORE [facility] Feb 01, 2022 01:00 PM VA-TOBACCO FORMER USER [facility] Feb 01, 2022 01:00 PM VA-TOBACCO QUIT 15 YRS OR MORE [facility] Feb 02, 2021 01:00 PM VA-TOBACCO FORMER USER [facility] Feb 02, 2021 01:00 PM VA-TOBACCO QUIT 15 YRS OR MORE [facility] Dec 12, 2019 01:25 PM VA-TOBACCO FORMER USER [facility] Dec 12, 2019 01:25 PM VA-TOBACCO QUIT 15 YRS OR MORE [facility] Jun 21, 2018 11:16 AM VA-TOBACCO FORMER USER [facility] Jun 21, 2018 11:16 AM VA-TOBACCO QUIT 15 YRS OR MORE [facility] September 15, 2017 05:29 AM INPT NO TOBACCO USE IN LAST 30 D [facility] Jun 29, 2017 02:21 PM FORMER TOBACCO USER 7Y OR GREATE R [facility] September 16, 2016 05:29 AM INPT NO TOBACCO USE IN LAST 30 D [facility] May 06, 2016 10:21 AM FORMER TOBACCO USER 7Y OR GREATE R [facility] Mar 24, 2016 11:54 AM INPT NO TOBACCO USE IN LAST 30 D [facility] Jun 23, 2015 10:20 AM FORMER TOBACCO USER 7Y OR GREATE R [facility] Jul 04, 2014 02:41 PM FORMER TOBACCO USER 7Y OR GREATE R [facility] Dec 23, 2010 02:12 PM LIFETIME NON-TOBACCO USER [facility] Dec 18, 2010 05:07 PM FORMER TOBACCO USER 7Y OR GREATE R [facility] May 26, 2006 02:20 PM FORMER TOBACCO USER 7Y OR GREATE R [facility] Advance Directives: All historical and current Section Date Range: From patient's date of to the date document was created. This section includes ALL of a patient's completed or amended NH Advance and Rescinded Directives. The entries below indicate that a directive exists for the patient, but an actual copy is not included with this document. The data comes from all NH facilities. Date Advance Directives Provider Source Jul 15, 2016 ADVANCE DIRECTIVE ARIEL TREVINO [place] [facility] Jul 15, 2016 ADVANCE DIRECTIVE DISCUSSION MAUREEN TREVINO [facility] Mar 22, 2016 CLINICAL WARNING HELEN TYLERDURGA [facility] Feb 05, 2011 CLINICAL WARNING LIZETH GABRIEL [facility] Dec 17, 2010 CLINICAL WARNING QUE CAMERON [facility] Aug 26, 2003 ADVANCE DIRECTIVE ELGIN HOOPER [facility] Encounter Notes: All associated encounter notes This section contains the clinical notes associated to the Encounter. 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 Available in low quarter or boot height with lace or Velcro closure. Custom Functional Orthotics A soft insert molded over a model of the patient's foot. The insert is modified to provide uniform plantar surface contact or to accommodate deformity within appropriate footwear. Foot Measures: 11.5 Medium Shoe Preference: Easy-on, patient is unable to bend to don/doff shoes. Insert(s): Trilam embedded shell, no arch fill, neutral posting, 14mm heel cup depth, B/L first and fifth metatarsal head offloading. Accommodations: Due to patient's physical restraints, EDS will be ordered from alternate Vendor. Patient was seen in prosthetics department for continuation of EDS. Patient was previously seen by Terrance Bustamante. Patient's shoes and socks where doffed and feet examined. ROM is reduced to 0 degrees dorsiflexion and is otherwise within normal limits. Patient has moderate nail fungus with medial 2-5 digit migration on both feet. Crossover on RT 2nd digit over great toe. Patient has a history of cellulitis in lower extremities. Bunions present on first metatarsal head of both feet. Patient's arch supports will be ordered from Dr. Flor. Patient's shoes will be ordered from [employer]. EDUCATION: Education was provided to patient during this encounter. Patient indicated readiness to learn about educational information re: the following topics: donning/doffing, wash/care instructions, how to report a concern. Additional education training is not indicated. Patient indicates readiness to learn, verbalizes understanding, agreement and satisfaction with the treatment plan. Patient denies further questions. Patient to be rescheduled upon receipt or completed fabrication of ordered item(s)/device(s) Be sure to have patient bring winter boots to fitting appointment to make sure custom orthotics fit. Supply to be ordered: Vendor: Dr Flor Item description: insert longitudinal custom Part #: Quantity: 2 pair [facility] Code: L3010 Deliver to: [facility]/Prosthetics Department ([id number]) Supply to be ordered: Vendor: [employer] Item description: Sona Hands-Free - Black - 11.5 Wide Part #: [id number] Quantity: 1 pair [facility] Code: L3221 Deliver to: [facility]/Prosthetics Department (121) /vincenzo/ Betsy Glover FRAME EXPANDER Signed: 03/16/2023 15:43 Receipt Acknowledged By: 03/18/2023 08:03 /vincenzo/ MORIAH GARCIA CPO CHIEF - OPPCS BETSY GLOVER [facility]
--- OUTSIDE RECORDS SUMMARY | 2023-10-26 17:12 | XMS_ITS | Encounter Summary ---
Author Name [facility] of [facility] Organization [facility] Address [address] [place] [address] Care Team Providers Care Inner Tube Cutter Name Role Phone NONA PAULINO Primary Care Provider Unavaila banner Insurance Providers: All historical and current Section Date Range: From patient's date of to the date document was created. This section includes the names of all active insurance providers for the patient. Insurance Provider Type of Coverage Plan Name Start of Policy Coverage End of Policy Coverage Group Number Member ID Insurance Provider's Telephone Number Policy Mandel's Name Patient's Relationship to Policy Mandel [facility] (WNR) MEDICARE ADVANTAGE [facility] (WNR) May 02, 2016 [id number] [phone] Duarte PANDYA PATIENT [facility] (WNR) MEDICARE ADVANTAGE [facility] (WNR) May 02, 2016 [id number] [phone] Duarte PANDYA PATIENT Selected Encounter This section includes the information on record at [place] for the Encounter. Date/Time Encounter Type Encounter Description Reason Provider Source May 17, 2023 02:30 PM OFFICE O/P EST MOD 30 MIN CARDIOLOGY ICD-10-CM R42 Dizziness and giddiness THOLAMIRIAM CORDOVA [facility] Encounter Template Text not used by [place] Assessments - Encounter Diagnoses This section includes the primary and secondary diagnoses documented for the Encounter. Date/Time Primary/Secondary Diagnosis Diagnosis Name Provider Source May 17, 2023 03:30 PM PRIMARY Dizziness and giddiness VERONICA DOZIER [facility] May 17, 2023 03:30 PM SECONDARY Ventricular premature depolarization ANTHONYHEIDI ACOSTA MccordTOMAS ROBINA [facility] Plan of Treatment: Future Appointments (+ 6 months) and Future Tests (+/- 45 days) The Plan of Treatment section includes future care activities for the patient from all [place] [facility]. This section includes future appointments and future orders which are active, pending or scheduled. Future Appointments This section includes appointments that were scheduled to occur 6 months from the date of the Encounter, up to a maximum of 20 appointments. The data comes from all [facility]. Appointment Date/Time Appointment Type Appointme nt Facility Name May 18, 2023 01:00 PM AMBULATORY - NONE [facility] May 18, 2023 02:30 PM AMBULATORY - NONE [facility] Jun 27, 2023 01:30 PM AMBULATORY - SURGERY [facility] Jul 28, 2023 11:00 AM AMBULATORY - MEDICINE [facility] Aug 15, 2023 02:00 PM AMBULATORY - SURGERY [facility] Aug 15, 2023 05:20 PM AMBULATORY - REHAB [facility] September 06, 2023 11:00 AM AMBULATORY - SURGERY [facility] September 06, 2023 01:45 PM [facility] September 06, 2023 02:00 PM [facility] September 06, 2023 02:30 PM [facility] Oct 24, 2023 01:30 PM [facility] Oct 24, 2023 02:30 PM [facility] Nov 02, 2023 01:30 PM AMBULATORY - SURGERY [facility] Nov 08, 2023 05:30 PM [facility] Vital Signs: All taken on the encounter date This section contains inpatient and outpatient Vital Signs collected on the date of the Encounter. Date/Time Temperature Pulse Blood Pressure Respiratory Rate SP02 Pain Height Weight Body Mass Index Source May 17, 2023 02:17 PM 142/70 mm[Hg] [facility] May 17, 2023 02:16 PM 269 lb 42 [facility] May 17, 2023 02:11 PM 97.8 F 74 /min 143/72 mm[Hg] 18 /min 95 % 0 67 in [facility] Social History: Smoking Status (Most current) and Tobacco Use (All prior to encounter date) This section includes the most current, and the historical, smoking and tobacco- related health factors from the [place] facility where the Encounter took place. Current Smoking Status This section includes the most current smoking, or tobacco-related health factor, from the [place] facility where the Encounter took place. Date/Time Current Smoking Status Comment Facil ity Jan 17, 2023 01:00 PM VA-TOBACCO FORMER USER [facility] Tobacco Use History This section includes a history of the smoking, or tobacco-related health factors, that were collected on or before the date of the Encounter. The data comes from the [place] facility where the Encounter took place. Date/Time Smoking Status/Tobacco Use Comment F acility Jan 17, 2023 01:00 PM VA-TOBACCO QUIT 15 YRS OR MORE [facility] Feb 01, 2022 01:00 PM VA-TOBACCO FORMER USER [facility] Feb 01, 2022 01:00 PM VA-TOBACCO QUIT 15 YRS OR MORE [facility] Feb 02, 2021 01:00 PM VA-TOBACCO FORMER USER [facility] Feb 02, 2021 01:00 PM VA-TOBACCO QUIT 15 YRS OR MORE [facility] Dec 12, 2019 01:25 PM VA-TOBACCO FORMER USER [facility] Dec 12, 2019 01:25 PM VA-TOBACCO QUIT 15 YRS OR MORE [facility] Jun 21, 2018 11:16 AM VA-TOBACCO FORMER USER [facility] Jun 21, 2018 11:16 AM VA-TOBACCO QUIT 15 YRS OR MORE [facility] September 15, 2017 05:29 AM INPT NO TOBACCO USE IN LAST 30 D [facility] Jun 29, 2017 02:21 PM FORMER TOBACCO USER 7Y OR GREATE R [facility] September 16, 2016 05:29 AM INPT NO TOBACCO USE IN LAST 30 D [facility] May 06, 2016 10:21 AM FORMER TOBACCO USER 7Y OR GREATE R [facility] Mar 24, 2016 11:54 AM INPT NO TOBACCO USE IN LAST 30 D AYS [facility] Jun 23, 2015 10:20 AM FORMER TOBACCO USER 7Y OR GREATE R [facility] Jul 04, 2014 02:41 PM FORMER TOBACCO USER 7Y OR GREATE R [facility] Dec 23, 2010 02:12 PM LIFETIME NON-TOBACCO USER [facility] Dec 18, 2010 05:07 PM FORMER TOBACCO USER 7Y OR GREATE R [facility] May 26, 2006 02:20 PM FORMER TOBACCO USER 7Y OR GREATE R [facility] Advance Directives: All historical and current Section Date Range: From patient's date of to the date document was created. This section includes ALL of a patient's completed or amended [place] Advance and Rescinded Directives. The entries below indicate that a directive exists for the patient, but an actual copy is not included with this document. The data comes from all [facility]. Date Advance Directives Provider Source Jul 15, 2016 ADVANCE DIRECTIVE ARIEL TREVINO [facility] Jul 15, 2016 ADVANCE DIRECTIVE DISCUSSION MAUREEN TREVINO [facility] Mar 22, 2016 CLINICAL WARNING PRUDENCIO TYLER [facility] Feb 05, 2011 CLINICAL WARNING [facility] Dec 17, 2010 CLINICAL WARNING QUE CAMERON [facility] Aug 26, 2003 ADVANCE DIRECTIVE ELGIN HOOPER [facility] Radiology Reports: +/- 30 days of the [...] the Encounter. The data comes from all [place] treatment facilities. Date/Time Radiology Report Provider Source May 18, 2023 12:15 PM US VENOUS INSUFFIC IENCY LOWER EXTREMITY (BILATERAL) (P): NANDA PANDYA [id number] M Exm Date: MAY 18, 2023@12:15 Req Phys: NONA PAULINO Pat Loc: [facility] PACT ADELAIDA PHONE (Req'g Loc) Img Loc: Ultrasound Imaging Service: Unknown (Case [id number] COMPLETE) US VENOUS EXTREMITY BILATERAL (US Detailed) CPT:42005 Reason for Study: Outside headhunter request Clinical History: Patient has dark brown colored legs. Arterial scan normal. Pateint's headhunter would like a venous US. Responsible provider name and phone number to notify for critical findings if other than user placing the order and pager listed below: User placing orders pager: Nona Paulino LA[facility]ATININE 1.0 (06/08/22) Report Status: Verified Date Reported: MAY 18, 2023 Date Verified: MAY 18, 2023 Java Portal Developer E-Sig:/ES/MARY AZEVEDO MD Report: Lower Extremity Venous Competency Ultrasound, 05/18/2023 Technique: Mtz-scale evaluation with compression and Doppler assessment of deep venous system for spontaneous and phasic flow, as well as the presence of distal augmentation with the patient supine. Color flow images obtained as needed. Grayscale and Duplex Doppler ultrasound of the lower extremity veins (superficial and deep) performed, including incompetency reflux time and compression for thrombus. Superficial incompetency exam performed upright, non-weight bearing on a tilting bed with a steep reverse Trendelenburg tilt. Venous flow is augmented at the calf with manual compression. Comparison study: Right lower extremity venous ultrasound 10/26/2017. History: Patient has dark brown colored legs. Arterial scan normal. Pateint's headhunter would like a venous US. Findings: Incompetency is defined as a reflux time greater than or equal to 500 ms. RIGHT lower extremity: The common femoral vein, deep femoral vein, femoral vein and popliteal vein are fully compressible with flow and augmentation. The posterior tibial veins are compressible without evidence for thrombus. The peroneal veins are compressible without evidence of thrombus. Common femoral vein: incompetent Femoral vein thigh prox: incompetent thigh mid: incompetent thigh distal: incompetent Popliteal vein: incompetent Posterior tibial vein #1 at the ankle: competent Posterior tibial vein #2 at the ankle: competent Great saphenous vein: origin: incompetent thigh prox: incompetent thigh mid: incompetent thigh distal: incompetent knee: incompetent calf prox: incompetent calf mid: incompetent calf distal: incompetent There is wall thickening and echogenic intraluminal material in the greater saphenous vein from the proximal to distal thigh and in the proximal calf. Note is also made of edema in the soft tissues of the distal calf and ankle. Diameter of GSV at SFJ: 5 mm Diameter of GSV at prox thigh: 7 mm Diameter of GSV at knee: 4 mm Diameter of SSV at SPJ: Not seen Small saphenous vein: calf prox: competent calf mid: incompetent calf distal: competent LEFT lower extremity: The common femoral vein, deep femoral vein, femoral vein and popliteal vein are fully compressible with flow and augmentation. The posterior tibial veins are compressible without evidence for thrombus. The peroneal veins are compressible without evidence of thrombus. Common femoral vein: incompetent Femoral vein thigh prox: incompetent thigh mid: incompetent thigh distal: incompetent Popliteal vein: incompetent Posterior tibial vein #1 at the ankle: competent Posterior tibial vein #2 at the ankle: competent Great saphenous vein: origin: competent thigh prox: incompetent thigh mid: incompetent thigh distal: incompetent knee: incompetent calf prox: competent calf mid: competent calf distal: incompetent There is wall thickening and echogenic intraluminal material in the greater saphenous vein from mid thigh to the knee. Note is also made of edema in the soft tissues of the distal calf and ankle. Diameter of GSV at SFJ: 9 mm Diameter of GSV at prox thigh: 6 mm Diameter of GSV at knee: 3 mm Diameter of SSV at SPJ: Not seen Small saphenous vein: calf prox: competent calf mid: incompetent calf distal: incompetent Impression: 1. Incompetency is defined as a reflux time greater than or equal to 500 ms. 2. Incompetent right leg veins: Common femoral vein, femoral vein, popliteal vein, the entire great saphenous and mid small saphenous vein. 3. Incompetent left leg veins: Common femoral vein, femoral vein, popliteal vein, great saphenous from the proximal thigh to the knee and at the distal calf, and the small saphenous vein from the mid to distal calf. 4. 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 5. No evidence of DVT in either lower extremity deep veins. I, MARY AZEVEDO, have reviewed the images and report. Primary Interpreting Staff: MARY AZEVEDO MD, RADIOLOGIST (Java Portal Developer) Primary Interpreting Resident: REYMUNDO COOPER DO, PRECINCT I POLICE SERGEANT /MARY GOLDEN [facility] Encounter Notes: All associated encounter notes This section contains the clinical notes associated to the Encounter. Date/Time Encounter Note(s) Provider Source May 17, 2023 03:22 PM CARDIOLOGY DIAGNOSTIC STUDY NOTE: LOCAL TITLE: CARDIOLOGY ELECTROPHYSIOLOGY NOTE STANDARD TITLE: CARDIOLOGY DIAGNOSTIC STUDY NOTE DATE OF NOTE: MAY 17, 2023@15:22 ENTRY DATE: MAY 17, 2023@15:22:43 AUTHOR: SHERRON BRISCOE EXP COSIGNER: URGENCY: STATUS: COMPLETED CARDIOLOGY ELECTROPHYSIOLOGY NOTE Has ADDENDA Cardiac/Dysrhythmia Clinic Note Nurses Notes Reviewed and Agree Chief Complaint/Reason for visit: Dizziness, PVCs History of present illness: 88 year old well known to me who underwent Pap M PVC ablation several years ago with good outcomes for several years came back past year with PVCs and he was given 200mg/d of amiodarone and then dropped down to 100mg/d. Patient has been experiencing dizziness which is different from his Vertigo symptoms. He says mostly when he gets up and orthostatics from the past clinic visits were negative for drop in BP. He had no syncope. He was wondering if amiodarone is causing it. He did treadmill ecg to see heart rate response and with his age and knee issues he mounted max heart response to 107 bpm without symptoms. Otherwise he feels well. 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) Asthma (SCT 783947478) ANEMIA NOS (ICD-9-CM 285.9) HEMATURIA (ICD-9-CM 599.7) Sleep apnea (SCT 75583630) Empyema, Pleural (ICD-9-CM 510.9) Bigeminy (ICD-9-CM 427.89) Bradycardia (ICD-9-CM 427.89) Cardiomyopathy (SCT 48420066) Arrhythmia (SCT 853180107) Cataract nos (ICD-9-CM 366.9) Pseudophakia (ICD-9-CM V43.1) Benign prostatic hyperplasia ([facility] 298426543) Dizziness and giddiness ([facility] 963681908) Gomez's esophagus ([facility] 575003934) Atrial fibrillation ([facility] 47341465) COPD - Chronic obstructive pulmonary disease ([facility] 80504435) Allergies: BRAZIL NUTS (Jun 12, 2006) ANIMALS (Dec 17, 2010) Medications: Active Outpatient Medications (including Supplies): ALBUTEROL 90MCG (CFC-F) 200D ORAL INHL INHALE 2 PUFFS BY ACTIVE INHALATION FOUR TIMES A DAY NEEDED FOR BREATHING SHAKE WELL (FOR IMMEDIATE RELIEF) REPLACES LEVALBUTEROL. AMLODIPINE BESYLATE 5MG TAB TAKE ONE TABLET BY MOUTH DAILY ACTIVE CARBOXYMETHYLCELLULOSE NA 0.25% OPH SOLN INSTILL 1 DROP IN ACTIVE BOTH EYES FOUR TIMES A DAY FOR DRY EYES DOXAZOSIN MESYLATE 2MG TAB TAKE ONE TABLET BY MOUTH AT ACTIVE BEDTIME FOR BPH (BENIGN PROSTATIC HYPERPLASIA) FAMOTIDINE 20MG TAB TAKE ONE TABLET BY MOUTH TWICE A DAY ACTIVE TO DECREASE STOMACH ACID FINASTERIDE 1MG TAB TAKE TWO TABLETS BY MOUTH EVERY DAY ACTIVE FOR PROSTATE FLUTICAS 250/SALMETEROL 50 INHL DISK 60 INHALE 1 PUFF BY ACTIVE INHALATION TWICE A DAY TO PREVENT TROUBLE BREATHING - RINSE MOUTH AFTER USING. LACTOBACILLUS ACIDOPHILUS TAB TAKE 1 TABLET BY MOUTH EVERY ACTIVE DAY (PROBIOTIC) LOSARTAN 50MG TAB TAKE ONE TABLET BY MOUTH EVERY DAY FOR ACTIVE BLOOD PRESSURE NYSTATIN 704313 UNT/GM CREAM APPLY THIN LAYER TOPICALLY ACTIVE TWICE A DAY FOR RASH EXTERNAL USE ONLY POLYETHYLENE GLYCOL 3350 ORAL PWDR TAKE 17 GRAMS BY MOUTH ACTIVE (S) EVERY DAY FOR CONSTIPATION - MIX IN 4 TO 8 OUNCES OF LIQUID DIRECTED*USE COVER TO MEASURE POWDER* TIOTROPIUM 18MCG INHL CAP 30 INHALE ONE [...] DAY NEEDED PHYSICAL EXAM: General: Not in distress Vitals: BP: 142/70 (05/17/2023 14:17) P: 74 (05/17/2023 14:11) R: 18 (05/17/2023 14:11) T: 97.8 F [36.6 C] (05/17/2023 14:11) WT: 269 lb [122.02 kg] (05/17/2023 14:16) Pain: 0 (05/17/2023 14:11) Neck/Thyroid: no JVD. Cardiac: RRR, No murmurs, gallops, rubs, S1 S2. Chest/Lungs: Bilaterally clear. Extremities: tight stockings which is holding up his stasis Assessment: Dizziness unclear etiology, patient wondering about amiodarone. Other possibilities being Doxazosin/ finasteride but he needs it for BPH Plan: Discussed in length spent 40minutes and the plan is to stop amiodarone. He will check BP twice daily with orthostatics in morning 2-3 times/ week. I will alert Dr. Paulino and wonder if any meds can be discontinued. If significant orthostatis he may be benefitted with Pyridostigmine norepinephrine uptake inhibition. As it doesn't cause hypertension /es/ MARISELA BRISCOE MD STAFF PHYSICIAN - CARDIAC BUSINESS LIBRARIAN Signed: 05/17/2023 15:30 05/17/2023 ADDENDUM STATUS: COMPLETED Although there is in the problem list AF noted I haven't seen AF documented lately. /es/ MARISELA BRISCOE MD STAFF PHYSICIAN - CARDIAC BUSINESS LIBRARIAN Signed: 05/17/2023 15:31 ACOSTA BRISCOE [facility] May 17, 2023 02:12 PM INTERNAL MEDICINE OUTPATIENT NOTE: LOCAL TITLE: MEDICINE CLINIC NURSING NOTE STANDARD TITLE: INTERNAL MEDICINE OUTPATIENT NOTE DATE OF NOTE: MAY 17, 2023@14:12 ENTRY DATE: MAY 17, 2023@14:12:52 AUTHOR: RAMESH QUINTERO EXP COSIGNER: URGENCY: STATUS: COMPLETED TYPE OF VISIT: Appointment Check In Type of appointment: In-person appointment REASON FOR VISIT: scheduled ALLERGIES: BRAZIL NUTS (Jun 12, 2006) ANIMALS (Dec 17, 2010) VITAL SIGNS: Blood Pressure: 143/72 (05/17/2023 14:11) Pulse: 74 (05/17/2023 14:11) Respiration: 18 (05/17/2023 14:11) Temperature: 97.8 F [36.6 C] (05/17/2023 14:11) Weight: 278 lb [126.10 kg] (01/17/2023 13:07)269 Height: 67 in [170.2 cm] (05/17/2023 14:11) BMI: 43.6 O2 Sat: 95% (05/17/2023 14:11) Pain: 0 (05/17/2023 14:11) PAIN SCREEN: Patient is not having significant pain that they wish to discuss with their provider today. MEDICATION Over the Counter/Herbal Medications: The patient states that they take some outside medications and/or herbals. /vincenzo/ RAMESH QUINTERO LPN FINGERNAIL SCULPTURER Signed: 05/17/2023 14:15 RAMESH QUINTERO [facility]
--- OUTSIDE RECORDS SUMMARY | 2023-10-26 17:12 | XMS_ITS | Encounter Summary ---
Author Name Department of [facility] Organization Department of [facility] Address [address] [place] [address] Care Team Providers Care Signal Mechanic Name Role Phone NONA PAULINO Primary Care Provider Unavaila [facility] Insurance Providers: All historical and [...] Mandel's Name Patient's Relationship to Policy Mandel [facility] (WNR) MEDICARE ADVANTAGE [facility] (WNR) May 02, 2016 [id number] [phone] Duarte PANDYA PATIENT [facility] (WNR) MEDICARE ADVANTAGE [facility] (WNR) May 02, 2016 [id number] [phone] Duarte PANDYA PATIENT Selected Encounter This section includes the information on record at [place] for the Encounter. Date/Time Encounter Type Encounter [...] this document. The data comes from all [place] facilities. Date Advance Directives Provider Source Jul 15, 2016 ADVANCE DIRECTIVE ARIEL TREVINO [facility] Jul 15, 2016 ADVANCE DIRECTIVE DISCUSSION MAUREEN TREVINO [facility] Mar 22, 2016 CLINICAL WARNING PRUDENCIO TYLER [facility] Feb 05, 2011 [facility] Dec 17, 2010 CLINICAL WARNING QUE CAMERON [facility] Aug 26, 2003 ADVANCE DIRECTIVE ELGIN HOOPER [facility]
--- OUTSIDE RECORDS SUMMARY | 2023-10-26 17:12 | XMS_ITS | Encounter Summary ---
Author Name Department of Vetera Affairs Organization Department of Vetera [facility] Address [address] [place] [address] Care Team Providers Care Department Editor Name Role Phone NONA PAULINO Primary Care Provider Unavaila ble Insurance Providers: All historical and current Section Date Range: From patient's date of to the date document was created. This section includes the names of all active insurance providers for the patient. Insurance Provider Type of Coverage Plan Name Start of Policy Coverage End of Policy Coverage Group Number Member ID Insurance Provider's Telephone Number Policy Mandel's Name Patient's Relationship to Policy Mandel [facility] (WNR) MEDICARE ADVANTAGE [facility] (WNR) May 02, 2016 [id number] [phone] Duarte PANDYA PATIENT [facility] (WNR) MEDICARE ADVANTAGE [facility] (WNR) May 02, 2016 [id number] [phone] Duarte PANDYA PATIENT Selected Encounter This section includes the information on record at [place] for the Encounter. Date/Time Encounter Type Encounter Description Reason Provider Source Jul 28, 2023 11:00 AM Outpatient Encounter TELEPHONE PRIMARY CARE ICD-10-CM N40.1 Benign prostatic hyperplasia with lower urinary tract symp RA JITENDRA PAULINO Clarita Encounter Template Text not used by [place] Assessments - Encounter Diagnoses This section includes the primary and secondary diagnoses documented for the Encounter. Date/Time Primary/Secondary Diagnosis Diagnosis Name Provider Source Jul 28, 2023 11:00 AM PRIMARY Benign prostatic hyperplasia with lower urinary tract symp RA [facility] Jul 28, 2023 11:00 AM SECONDARY Dizziness and giddiness RA [facility]ERSON [facility] Jul 28, 2023 11:00 AM SECONDARY Unspecified atrial fibrillation RA JE[facility]ERSON [facility] Plan of Treatment: Future Appointments (+ 6 months) and Future Tests (+/- 45 days) The Plan of Treatment section includes future care activities for the patient from all [facility]. This section includes future appointments and future orders which are active, pending or scheduled. Future Appointments This section includes appointments that were scheduled to occur 6 months from the date of the Encounter, up to a maximum of 20 appointments. The data comes from all [facility]. Appointment Date/Time Appointment Type Appointme nt Facility Name Aug 15, 2023 02:00 PM AMBULATORY - SURGERY [facility] Aug 15, 2023 05:20 PM AMBULATORY - REHAB MEDICIN [facility] September 06, 2023 11:00 AM AMBULATORY - SURGERY [facility] September 06, 2023 01:45 PM AMBULATORY - MEDICINE [facility] September 06, 2023 02:00 PM AMBULATORY - MEDICINE [facility] September 06, 2023 02:30 PM AMBULATORY - MEDICINE [facility] Oct 24, 2023 01:30 PM AMBULATORY - NONE [facility] Oct 24, 2023 02:30 PM AMBULATORY - MEDICINE [facility] Nov 02, 2023 01:30 PM AMBULATORY - SURGERY [facility] Nov 08, 2023 05:30 PM AMBULATORY - REHAB MEDICIN [facility] Dec 26, 2023 11:00 AM AMBULATORY - REHAB MEDICIN [facility] Jan 11, 2024 01:20 PM AMBULATORY - SURGERY [facility] Active, Pending, and Scheduled Orders This section includes a listing of several types of active, pending, and scheduled orders, including clinic medications orders, diagnostic test orders, procedure orders and consult orders; where the start date of the order is 45 days before the date of the Encounter or 45 days after the date of theEncounter. The data comes from all [place] treatment facilities. Test Date/Time Test Type Test Details Facility Name September 06, 2023 02:11 PM Consult Order CARDIAC EX TENDED WEAR HOLTER MONITOR OUTPT Cons [employer] [facility] Social History: Smoking Status (Most current) and Tobacco Use (All prior to encounter date) This section includes the most current, and the historical, smoking and tobacco- related health factors from the [place] facility where the Encounter took place. Current Smoking Status This section includes the most current smoking, or tobacco-related health factor, from the [place] facility where the Encounter took place. Date/Time Current Smoking Status Comment Facil ity Jan 17, 2023 01:00 PM VA-TOBACCO QUIT 15 YRS OR MORE [facility] Tobacco Use History This section includes a history of the smoking, or tobacco-related health factors, that were collected on or before the date of the Encounter. The data comes from the [place] facility where the Encounter took place. Date/Time Smoking Status/Tobacco Use Comment F acility Jan 17, 2023 01:00 PM VA-TOBACCO QUIT 15 YRS OR MORE [facility] Feb 01, 2022 01:00 PM VA-TOBACCO FORMER USER [facility] Feb 01, 2022 01:00 PM VA-TOBACCO QUIT 15 YRS OR MORE [facility] Feb 02, 2021 01:00 PM VA-TOBACCO FORMER USER [facility] Feb 02, 2021 01:00 PM VA-TOBACCO QUIT 15 YRS OR MORE [facility] Dec 12, 2019 01:25 PM VA-TOBACCO FORMER USER [facility] Dec 12, 2019 01:25 PM VA-TOBACCO QUIT 15 YRS OR MORE [facility] Jun 21, 2018 11:16 AM VA-TOBACCO FORMER USER [facility] Jun 21, 2018 11:16 AM VA-TOBACCO QUIT 15 YRS OR MORE [facility] September 15, 2017 05:29 AM INPT NO TOBACCO USE IN LAST 30 D [facility] Jun 29, 2017 02:21 PM FORMER TOBACCO USER 7Y OR GREATE R [facility] September 16, 2016 05:29 AM INPT NO TOBACCO USE IN LAST 30 D [facility] May 06, 2016 10:21 AM FORMER TOBACCO USER 7Y OR GREATE R [facility] Mar 24, 2016 11:54 AM INPT NO TOBACCO USE IN LAST 30 D [facility] Jun 23, 2015 10:20 AM FORMER TOBACCO USER 7Y OR GREATE R [facility] Jul 04, 2014 02:41 PM FORMER TOBACCO USER 7Y OR GREATE R [facility] Dec 23, 2010 02:12 PM LIFETIME NON-TOBACCO USER [facility] Dec 18, 2010 05:07 PM FORMER TOBACCO USER 7Y OR GREATE R [facility] May 26, 2006 02:20 PM FORMER TOBACCO USER 7Y OR GREATE R [facility] Advance Directives: All historical and current Section Date Range: From patient's date of to the date document was created. This section includes ALL of a patient's completed or amended [place] Advance and Rescinded Directives. The entries below indicate that a directive exists for the patient, but an actual copy is not included with this document. The data comes from all [place] facilities. Date Advance Directives Provider Source Jul 15, 2016 ADVANCE DIRECTIVE ARIEL TREVINO [facility] Jul 15, 2016 ADVANCE DIRECTIVE DISCUSSION MAUREEN TREVINO [facility] Mar 22, 2016 CLINICAL WARNING PRUDENCIO TYLER [facility] Feb 05, 2011 CLINICAL WARNING [facility] Dec 17, 2010 CLINICAL WARNING KEMALSHUKRIQUE [facility] Aug 26, 2003 ADVANCE DIRECTIVE ELGIN HOOPER [facility] Encounter Notes: All associated encounter notes This section contains the clinical notes associated to the Encounter. Date/Time Encounter Note(s) Provider Source Jul 28, 2023 11:13 PM PACT NOTE: LOCAL TITLE: MEDICINE CLINIC PROVIDER TELEPHONE NOTE STANDARD TITLE: PACT NOTE DATE OF NOTE: JUL 28, 2023@23:13 ENTRY DATE: JUL 28, 2023@23:13:56 AUTHOR: NONA PAULINO EXP COSIGNER: URGENCY: STATUS: COMPLETED History: 88M requested a call today to discuss ongoing issues with urination. He reports increasing frequency of small voids over time. He is getting up 4-5 times a night to urinate despite treatment with doxazosin and finasteride. No dysuria, pyuria, or hematuria. Assessment/Plan: # Worsening LUTS despite treatment. Will place consult to urology for further evaluation. # Lower extremity edema & varicosities. 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 Patient has had difficulty putting on compression stockings and plastic sock aids keep breaking. He requests a metal one. OT consult placed. # Amiodarone stopped by EP. Patient reports his dizziness has improved since coming off this medication. He has follow up scheduled with EP later this spring. 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
--- OUTSIDE RECORDS SUMMARY | 2023-10-26 17:13 | XMS_ITS | Encounter Summary ---
Author Name Department of Vetera Affairs Organization Department of Vetera Affairs Address [address] [place] [address] Care Team Providers Care [employer] Name Role Phone NONA PAULINO [facility] Insurance Providers: All historical and current [...] Mandel's Name Patient's Relationship to Policy Mandel [facility] (WNR) MEDICARE ADVANTAGE [facility] (WNR) May 02, 2016 [id number] [phone] Duarte PANDYA PATIENT [facility] (WNR) MEDICARE ADVANTAGE [facility] (WNR) May 02, 2016 [id number] [phone] Duarte PANDYA PATIENT Selected Encounter This section includes the information on record at [place] for the Encounter. Date/Time Encounter Type Encounter Description Reason Provider Source Aug 15, 2023 02:00 PM OFF/OP CNSLTJ NEW/EST LOW 30 UROLOGY CLINIC ICD-10-CM R35.1 Nocturia GERRY VELASQUEZ OPHER BRANT [place] Encounter Template Text not used by [place] Assessments - Encounter Diagnoses This section includes the primary and secondary diagnoses documented for the Encounter. Date/Time Primary/Secondary Diagnosis Diagnosis Name Provider Source Aug 15, 2023 02:25 PM PRIMARY GERRY Serrano [facility] Plan of Treatment: Future Appointments (+ 6 months) and Future Tests (+/- 45 days) The Plan of Treatment section includes future care activities for the patient from all [place] [facility] This section includes future appointments and future orders which are active, pending or scheduled. Future Appointments This section includes appointments that were scheduled to occur 6 months from the date of the Encounter, up to a maximum of 20 appointments. The data comes from all [facility]. Appointment Date/Time Appointment Type Appointme nt Facility Name September 06, 2023 11:00 AM AMBULATORY - SURGERY [facility] September 06, 2023 01:45 PM AMBULATORY - MEDICINE [facility] September 06, 2023 02:00 PM AMBULATORY - MEDICINE [facility] September 06, 2023 02:30 PM AMBULATORY - MEDICINE [facility] Oct 24, 2023 01:30 PM AMBULATORY - NONE [facility] Oct 24, 2023 02:30 PM AMBULATORY - MEDICINE [facility] Nov 02, 2023 01:30 PM AMBULATORY - SURGERY [facility] Nov 08, 2023 05:30 PM AMBULATORY - REHAB MEDICIN [facility] Dec 26, 2023 11:00 AM AMBULATORY - REHAB MEDICIN E [facility] Jan 11, 2024 01:20 PM AMBULATORY - SURGERY [facility] Jan 31, 2024 12:00 PM AMBULATORY - MEDICINE [facility] Active, Pending, and Scheduled Orders This section includes a listing of several types of active, pending, and scheduled orders, including clinic medications orders, diagnostic test orders, procedure orders and consult orders; where the start date of the order is 45 days before the date of the Encounter or 45 days after the date of theEncounter. The data comes from all [facility]. Test Date/Time Test Type Test Details Facility Name September 06, 2023 02:11 PM Consult Order CARDIAC EX TENDED WEAR HOLTER MONITOR OUTPT Cons Reporter Anchor's Choice [facility] Lab Results: +/- 30 days of the encounter This section includes the Chemistry and Hematology Lab Results on record with [place] for the patient. Radiology Reports and Pathology Reports are provided separately, in subsequent sections. Lab Results This section contains the Chemistry/Hematology Results that were resulted 30 days before or 30 daysafter the date of the Encounter. Date/Time Source Result Type Result - Unit Interpretation Reference Range Comment September 06, 2023 02:44 PM [facility] HEMOGLOBIN A1C Specimen Type: BLOOD Comment: Values obtained from A1C measurements can vary. For typical A1C assays, a reported value of 7.0 could actually be between 6.7 and 7.3 if measured by a reference method. A reported value of 9.0 could actually be between 8.7 and 9.3. Ref: http://www.ng [email or web address]/CAPdat a.[email or web address] Ordering Provider: VERONICA DOZIER Report Released Date/Time: September 06, 2023 02:05 PM Reporting Lab: [facility] [id number] Performing Lab: [facility] [id number] HEMOGLOBIN A1C 5.6 4.0-6.0 September 06, 2023 02:44 PM [facility] TSH W/REFLEX TO FREE T4 Specimen Type: PLASMA Comment: Values obtained from A1C measurements can vary. For typical A1C assays, a reported value of 7.0 could actually be between 6.7 and 7.3 if measured by a reference method. A reported value of 9.0 could actually be between 8.7 and 9.3. Ref: http://www. sp.org/CAPdat a.[email or web address] Ordering Provider: VERONICA DOZIER Report Released Date/Time: September 06, 2023 02:05 PM Reporting Lab: [facility] [id number] Performing Lab: [facility] [id number] TSH 0.97 u[IU]/mL 0.35-4.94 September 06, 2023 02:44 PM [facility] CBC Specimen Type: BLOOD No comment entered. Ordering Provider: VERONICA DOZIER Report Released Date/Time: September 06, 2023 02:05 PM Reporting Lab: [facility] [id number] Performing Lab: [facility] [id number] WBC 6.22 10*3/uL 4.0-11.0 RBC 4.19 10*6/uL L 4.6-6.2 HGB 13.3 g/dL L 13.5-17.9 HCT 39.0 L 41-54 MCV 93.1 fL 80-100 MCH 31.7 pg 27-33 MCHC 34.1 g/dL 32.0-37.5 PLT 207 10*3/uL 150-400 MPV 9.2 fL 7.4-10.4 RDW 13.5 11.5-14.5 September 06, 2023 02:44 PM [facility] COMPREHENSIVE METABOLIC PANEL+MG Specimen Type: PLASMA Comment: Values obtained from A1C measurements can vary. For typical A1C assays, a reported value of 7.0 could actually be between 6.7 and 7.3 if measured by a reference method. A reported value of 9.0 could actually be between 8.7 and 9.3. Ref: http://www.ng [email or web address]/CAPdat a.[email or web address] Ordering Provider: VERONICA DOZIER Report Released Date/Time: September 06, 2023 02:05 PM Reporting Lab: [facility] [phone] Performing Lab: [facility] [phone] CREATININE 1.0 mg/dL 0.7-1.2 UREA NITROGEN 22 mg/dL 8-26 GLUCOSE 154 mg/dL H 70-100 SODIUM 142 mmol/L 136-145 POTASSIUM 4.3 mmol/L 3.5-5.1 CHLORIDE 111 mmol/L H 98-107 CO2 24 mmol/L 22-29 CALCIUM 9.2 mg/dL 8.4-10.2 PROTEIN,TOTAL 7.2 g/dL 6.0-8.3 ALBUMIN 3.6 g/dL 3.5-5.2 BILIRUBIN, TOTAL 0.4 mg/dL 0.2-1.2 MAGNESIUM 1.9 mg/dL 1.6-2.6 ANION GAP 7 mmol/L 5-15 ALKALINE PHOSPHATASE 63 U/L 40-150 ALT/SGPT 14 U/L <55 AST/SGOT 15 U/L <34 .CREAT EGFR(CKD-EPI) 73 >60 Social History: Smoking Status (Most current) and Tobacco Use (All prior to encounter date) This section includes the most current, and the historical, smoking and tobacco- related health factors from the [place] facility where the Encounter took place. Current Smoking Status This section includes the most current smoking, or tobacco-related health factor, from the [place] facility where the Encounter took place. Date/Time Current Smoking Status Comment Facil ity Jan 17, 2023 01:00 PM VA-TOBACCO FORMER USER [facility] Tobacco Use History This section includes a history of the smoking, or tobacco-related health factors, that were collected on or before the date of the Encounter. The data comes from the [place] facility where the Encounter took place. Date/Time Smoking Status/Tobacco Use Comment F acility Jan 17, 2023 01:00 PM VA-TOBACCO QUIT 15 YRS OR MORE [facility] Feb 01, 2022 01:00 PM VA-TOBACCO FORMER USER [facility] Feb 01, 2022 01:00 PM VA-TOBACCO QUIT 15 YRS OR MORE [facility] Feb 02, 2021 01:00 PM VA-TOBACCO FORMER USER [facility] Feb 02, 2021 01:00 PM VA-TOBACCO QUIT 15 YRS OR MORE [facility] Dec 12, 2019 01:25 PM VA-TOBACCO FORMER USER [facility] Dec 12, 2019 01:25 PM VA-TOBACCO QUIT 15 YRS OR MORE [facility] Jun 21, 2018 11:16 AM VA-TOBACCO FORMER USER [facility] Jun 21, 2018 11:16 AM VA-TOBACCO QUIT 15 YRS OR MORE [facility] September 15, 2017 05:29 AM INPT NO TOBACCO USE IN LAST [address] [facility] Jun 29, 2017 02:21 PM FORMER TOBACCO USER 7Y OR GREATE R [facility] September 16, 2016 05:29 AM INPT NO TOBACCO USE IN LAST [address] [facility] May 06, 2016 10:21 AM FORMER TOBACCO USER 7Y OR GREATE R [facility] Mar 24, 2016 11:54 AM INPT NO TOBACCO USE IN LAST [address] [facility] Jun 23, 2015 10:20 AM FORMER TOBACCO USER 7Y OR GREATE R [facility] Jul 04, 2014 02:41 PM FORMER TOBACCO USER 7Y OR GREATE R [facility] Dec 23, 2010 02:12 PM LIFETIME NON-TOBACCO USER [facility] Dec 18, 2010 05:07 PM FORMER TOBACCO USER 7Y OR GREATE R [facility] May 26, 2006 02:20 PM FORMER TOBACCO USER 7Y OR GREATE R [facility] Advance Directives: All historical and current Section Date Range: From patient's date of to the date document was created. This section includes ALL of a patient's completed or amended [place] Advance and Rescinded Directives. The entries below indicate that a directive exists for the patient, but an actual copy is not included with this document. The data comes from all [place] facilities. Date Advance Directives Provider Source Jul 15, 2016 ADVANCE DIRECTIVE DISCUSSION MAUREEN TREVINO Brook [facility] Jul 15, 2016 ADVANCE DIRECTIVE ARIEL TREVINO Brook [facility] Mar 22, 2016 CLINICAL WARNING PRUDENCIO TYLER M [facility] Feb 05, 2011 CLINICAL WARNING HARVEYLIZETH JANAY [facility] Dec 17, 2010 CLINICAL WARNING QUE CAMERON [facility] Aug 26, 2003 ADVANCE DIRECTIVE ELGIN HOOPER [facility] Encounter Notes: All associated encounter notes This section contains the clinical notes associated to the Encounter. Date/Time Encounter Note(s) Provider Source Aug 15, 2023 02:17 PM UROLOGY CONSULT: LOCAL TITLE: UROLOGY CONSULT STANDARD TITLE: UROLOGY CONSULT DATE OF NOTE: AUG 15, 2023@14:17 ENTRY DATE: AUG 15, 2023@14:18:04 AUTHOR: ADORE VELASQUEZ EXP COSIGNER: URGENCY: STATUS: COMPLETED Chief Complaint: lutsx. NANDA Lan is a 88 year old w/ PMH of HTN, obesity, ELSA (+ CPAP), Asthma, cardiomyopathy, A.Fib, COPD. Urologic hx of BPH/LUTS on finasteride and doxazosin + history of gross hematuria w/ negative w/u in 2019. He currently denies any hematuria since or concerns of irritative voids. Sentinal concern has been nocturia which is varaiable from 1-5 times a night. Fluids: primary fluid ~ water. pop variable intake. RU 1 PAST MEDICAL HISTORY ===== Hypertension (SCT [id number]) Simple obesity ([facility] [id number]) Gastroesophageal reflux disease (SCT 235IMPOTENCE, ORGANIC (ICD-9-CM 607.84) Asthma ([facility] [id number]) ANEMIA NOS (ICD-9-CM 285.9) HEMATURIA (ICD-9-CM 599.7) Sleep apnea ([facility] [id number]) Empyema, Pleural (ICD-9-CM 510.9) Bigeminy (ICD-9-CM 427.89) Bradycardia (ICD-9-CM 427.89) Cardiomyopathy ([facility] [id number]) Arrhythmia ([facility] [id number]) Cataract nos (ICD-9-CM 366.9) Pseudophakia (ICD-9-CM V43.1) Benign prostatic hyperplasia ([facility] [id number]) Dizziness and giddiness ([facility] 497849460) Gomez's esophagus ([facility] [id number]) Atrial fibrillation ([facility] 29688408) COPD - Chronic obstructive pulmonary disease ([facility] [id number]) PAST SURGICAL HISTORY ===== SEPTEMBER 15, 2017 Proc: Right TKA SEPTEMBER 16, 2016 Proc: Left TKA FAMILY HISTORY ===== Hx of prostate cancer: denies Hx of renal cancer: denies Hx of bladder cancer: denies SOCIAL HISTORY ===== Lives at home with: Daughters house ~ seperate unit. Children: 3 Occupation: retired Alcohol use: Sober since 1995 Ilicit drug use: denies Agent orange exposure: denies Chemical/dye exposure: denies MEDICATIONS: Active Outpatient Medications (excluding Supplies): Outpatient Medications Status 1) ACETAMINOPHEN 325MG TAB TAKE TWO TABLETS BY MOUTH ACTIVE THREE TIMES A DAY FOR PAIN -NOT TO EXCEED 4000MG IN 24 HOURS FROM ALL SOURCES 2) ALBUTEROL 90MCG (CFC-F) 200D ORAL INHL INHALE 2 PUFFS ACTIVE BY INHALATION FOUR TIMES A DAY NEEDED FOR BREATHING SHAKE WELL (FOR IMMEDIATE RELIEF) REPLACES LEVALBUTEROL. 3) AMLODIPINE BESYLATE 5MG TAB TAKE ONE TABLET BY MOUTH ACTIVE DAILY 4) CARBOXYMETHYLCELLULOSE NA 0.25% OPH SOLN INSTILL 1 ACTIVE DROP IN BOTH EYES FOUR TIMES A DAY FOR DRY EYES 5) DOXAZOSIN MESYLATE 2MG TAB TAKE ONE TABLET BY MOUTH ACTIVE AT BEDTIME FOR BPH (BENIGN PROSTATIC HYPERPLASIA) 6) FAMOTIDINE 20MG TAB TAKE ONE TABLET BY MOUTH TWICE A ACTIVE DAY TO DECREASE STOMACH ACID 7) FINASTERIDE 1MG TAB TAKE TWO TABLETS BY MOUTH EVERY ACTIVE DAY FOR PROSTATE 8) FLUTICAS 250/SALMETEROL 50 INHL DISK 60 INHALE 1 PUFF ACTIVE BY INHALATION TWICE A DAY TO PREVENT TROUBLE BREATHING - RINSE MOUTH AFTER USING. 9) LOSARTAN 50MG TAB TAKE ONE TABLET BY MOUTH EVERY DAY ACTIVE FOR BLOOD PRESSURE 10) NYSTATIN 298100 UNT/GM CREAM APPLY THIN LAYER ACTIVE TOPICALLY TWICE A DAY FOR RASH EXTERNAL USE ONLY 11) POLYETHYLENE GLYCOL 3350 ORAL PWDR TAKE 17 GRAMS BY ACTIVE MOUTH EVERY DAY FOR CONSTIPATION - MIX IN 4 TO 8 OUNCES OF LIQUID DIRECTED*USE COVER TO MEASURE POWDER* 12) TIOTROPIUM 18MCG INHL CAP 30 INHALE ONE CAPSULE IN ACTIVE INHALER BY INHALATION EVERY DAY TO PREVENT TROUBLE BREATHING 13) VANICREAM TOP CREAM APPLY THIN LAYER TOPICALLY TWICE ACTIVE A DAY FOR DRY SKIN Non-VA Medications Status 1) Non-VA CHOLECALCIFEROL TAB MOUTH EVERY DAY ACTIVE 2) Non-VA DOCUSATE CAP,ORAL 250MG MOUTH EVERY MORNING ACTIVE 3) Non-VA IBUPROFEN 400MG TAB 400MG MOUTH TWICE A DAY ACTIVE NEEDED 4) Non-VA POLYETHYLENE GLYCOL 3350 POWDER,ORAL MOUTH ACTIVE 5) Non-VA POLYVINYL ALCOHOL 1.4% SOLN 15ML (UD) 1 DROP ACTIVE BOTH EYES NEEDED 6) Non-VA SODIUM CHLORIDE 0.65% SOLN,SPRAY,NASAL 2 ACTIVE SPRAYS EACH NOSTRIL TWICE A DAY NEEDED 19 Total Medications PHYSICAL EXAM Gen: no acute distress Neck: no JVD, trachea midline, no abnormal adenopathy Resp: No increased work of breathing Abd: Soft, nontender, nondistended, no visible scars Skin: Warm and dry, no visible rashes/bruises Ext: No cyanosis, or edema. Neuro: Cranial nerves II-XII grossly intact : - PVR today: 1 LABS: PSA 3.80 SERUM (12/12/19 15:05) Collection DT Specimen Test Name Result Units Ref Range 06/08/2022 11:31 PLASMA CREATININE 1.0 mg/dL 0.7 - 1.2 08/03/2021 11:44 PLASMA CREATININE 0.9 mg/dL 0.7 - 1.2 09/16/2020 12:03 PLASMA CREATININE 0.8 mg/dL 0.7 - 1.2 08/13/2020 11:41 PLASMA!! CREATININE 0.8 mg/dL 0.7 - 1.2 12/12/2019 15:05 PLASMA CREATININE 0.8 mg/dL 0.7 - 1.2 !! Indicates COMMENTS AVAILABLE...Refer to Interim Lab Report. TESTOSTERONE____ IMAGING PLAN NANDA Lan is a 88 year old gentleman who presents for #lutsx continue finasteride and doxazosin. emptying bladder well. water as primary fluid. # nocturia. compliant w/ cpap. nothing really to further offer/recomend though would be best to abstain from pop. dc'd to primary. reconsult if any significant worsening of sx's. /vincenzo/ KHUSHI LOCKHART PHYSICIAN RN [facility] Signed: 08/15/2023 14:25 PAXTON VELASQUEZ [facility]
--- OUTSIDE RECORDS SUMMARY | 2023-10-26 17:13 | XMS_ITS | Encounter Summary ---
Author Name Department of Vetera [facility] Organization Department of Vetera [facility] Address [address] [place] [address] Care Team Providers Care Flexo Operator Name Role Phone JEFFERSON NONA Primary Care Provider [facility] [...] Mandel's Name Patient's Relationship to Policy Mandel [facility] (WNR) MEDICARE [facility] (WNR) May 02, 2016 [id number] [phone] Duarte PANDYA PATIENT [facility] (WNR) MEDICARE [facility] (WNR) May 02, 2016 [id number] [phone] Duarte PANDYA PATIENT Selected Encounter This section includes the information on record at [place] for the Encounter. Date/Time Encounter Type Encounter Description Reason Pro vider Source Aug 03, 2023 02:17 PM Outpatient Encounter TELEPHONE TRIAGE IHE Encounter Template Text not used by [place] Plan of Treatment: Future Appointments (+ 6 months) and Future Tests (+/- 45 days) The Plan of Treatment section includes future care activities for the patient from all [place] [facility]. This section includes future appointments and future orders which are active, pending or scheduled. Future Appointments This section includes appointments that were scheduled to occur 6 months from the date of the Encounter, up to a maximum of 20 appointments. The data comes from all [facility]. Appointment Date/Time Appointment Type Appointme nt Facility Name Aug 15, 2023 02:00 PM AMBULATORY - SURGERY [facility] Aug 15, 2023 05:20 PM AMBULATORY - REHAB MEDICIN E [facility] September 06, 2023 11:00 AM AMBULATORY - SURGERY [facility] September 06, 2023 01:45 PM AMBULATORY - MEDICINE [facility] September 06, 2023 02:00 PM AMBULATORY - MEDICINE [facility] September 06, 2023 02:30 PM AMBULATORY - MEDICINE [facility] Oct 24, 2023 01:30 PM AMBULATORY - NONE [facility] Oct 24, 2023 02:30 PM AMBULATORY - MEDICINE [facility] Nov 02, 2023 01:30 PM AMBULATORY - SURGERY [facility] Nov 08, 2023 05:30 PM AMBULATORY - REHAB MEDICIN E [facility] Dec 26, 2023 11:00 AM AMBULATORY - REHAB MEDICIN [facility] Jan 11, 2024 01:20 PM AMBULATORY - SURGERY [facility] Jan 31, 2024 12:00 PM AMBULATORY - MEDICINE [facility] Active, Pending, and Scheduled Orders This section includes a listing of several types of active, pending, and scheduled orders, including clinic medications orders, diagnostic test orders, procedure orders and consult orders; where the start date of the order is 45 days before the date of the Encounter or 45 days after the date of theEncounter. The data comes from all [facility]. Test Date/Time Test Type Test Details Facility Name September 06, 2023 02:11 PM Consult Order CARDIAC EX TENDED WEAR HOLTER MONITOR OUTPT Cons Pattern Maker Programer's Choice [facility] Social History: Smoking Status (Most current) and [...] 15, 2016 ADVANCE DIRECTIVE ARIEL TREVINO Brook [facility] Jul 15, 2016 ADVANCE DIRECTIVE DISCUSSION MAUREEN TREVINO Brook [facility] Mar 22, 2016 CLINICAL WARNING PRUDENCIO TYLER [facility] Feb 05, 2011 CLINICAL WARNING LIZETH GABRIEL [facility] Dec 17, 2010 CLINICAL WARNING QUE CAMERON [facility] Aug 26, 2003 ADVANCE DIRECTIVE ELGIN [facility]OPER [facility] Encounter Notes: All associated encounter notes This section contains the clinical notes associated to the Encounter. Date/Time Encounter Note(s) Provider Source Aug 03, 2023 02:17 PM ADMINISTRATIVE NOT E: LOCAL TITLE: CCC: SCHEDULING ADMINISTRATION STANDARD TITLE: ADMINISTRATIVE NOTE DATE OF NOTE: AUG 03, 2023@14:17 ENTRY DATE: AUG 03, 2023@14:17:55 AUTHOR: AURELIO CACERES EXP COSIGNER: URGENCY: STATUS: COMPLETED CCC: SCHEDULING ADMINISTRATION Has ADDENDA Primary Care Call Center Primary Care Provider Call Please contact at the following number: [phone] Other: Please give a call back at number above to discuss problems that he is having. Denies triage at this time. This note was created by a 3 [facility] Call Center EFRAIN/KIRAN. Please do not alert this global technical writer by adding as a signer for future communications. Alerts are not monitored by this user, please reach out to [facility] Leadership instead if indicated. /nichole MOREIRA 23 [facility]3] KIRAN Signed: 08/03/2023 14:18 Receipt Acknowledged By: 08/04/2023 08:19 /nichole CRABTREE RN 08/04/2023 ADDENDUM STATUS: COMPLETED Called who reports he does not have any questions. He was interested in making an appointment with urology and now has that appointment. No further questions. /vincenzo/ GAURAV CRABTREE RN Signed: 08/04/2023 08:21 AURELIO CACERES [facility]
--- OUTSIDE RECORDS SUMMARY | 2023-10-26 17:14 | XMS_ITS | Encounter Summary ---
Author Name Department of [facility] Organization Department of [facility] Address [address] [place] [address] Care Team Providers Care President Financial Institution Name Role Phone KIARAAZAMPATRICIANONA Primary Care Provider Unavaila [facility] Insurance Providers: All historical and current Section Date Range: From patient's date of to the date document was created. This section includes the names of all active insurance providers for the patient. Insurance Provider Type of Coverage Plan Name Start of Policy Coverage End of Policy Coverage Group Number Member ID Insurance Provider's Telephone Number Policy Mandel's Name Patient's Relationship to Policy Mandel [facility] (WNR) MEDICARE ADVANTAGE [facility] (WNR) May 02, 2016 [id number] [phone] Duarte PANDYA PATIENT [facility] (WNR) MEDICARE ADVANTAGE [facility] (WNR) May 02, 2016 [id number] [phone] Duarte PANDYA PATIENT Selected Encounter This section includes the information on record at NH for the Encounter. Date/Time Encounter Type Encounter Description Reason Provider Source September 06, 2023 01:45 PM ELECTROCARDIOGRAM REPORT EKG ICD-10-CM Z13.6 Encounter for screening for cardiovascular disorders KEELEY ALVARADO [facility] Encounter Template Text not used by NH Assessments - Encounter Diagnoses This section includes the primary and secondary diagnoses documented for the Encounter. Date/Time Primary/Secondary Diagnosis Diagnosis Name Provider Source September 06, 2023 01:27 PM PRIMARY Encounter for screening for cardiovascular disorders RUIZNY [facility] Plan of Treatment: Future Appointments (+ 6 months) and Future Tests (+/- 45 days) The Plan of Treatment section includes future care activities for the patient [facility] This section includes future appointments and future orders which are active, pending or scheduled. Future Appointments This section includes appointments that were scheduled to occur 6 months from the date of the Encounter, up to a maximum of 20 appointments. The data comes from all [facility]. Appointment Date/Time Appointment Type Appointme nt Facility Name Oct 24, 2023 01:30 PM AMBULATORY - NONE [facility] Oct 24, 2023 02:30 PM AMBULATORY - MEDICINE [facility] Nov 02, 2023 01:30 PM AMBULATORY - SURGERY [facility] Nov 08, 2023 05:30 PM [facility] Dec 26, 2023 11:00 AM AMBULATORY - REHAB [facility] Jan 11, 2024 01:20 PM AMBULATORY - SURGERY [facility] Jan 31, 2024 12:00 PM AMBULATORY - MEDICINE [facility] Active, Pending, and Scheduled Orders This section includes a listing of several types of active, pending, and scheduled orders, including clinic medications orders, diagnostic test orders, procedure orders and consult orders; where the start date of the order is 45 days before the date of the Encounter or 45 days after the date of theEncounter. The data comes from all [facility]. Test Date/Time Test Type Test Details Facility Name September 06, 2023 02:11 PM Consult Order CARDIAC EX TENDED WEAR HOLTER MONITOR OUTPT Cons Red Lead Burner's Choice [facility] Lab Results: +/- 30 days of the encounter This section includes the Chemistry and Hematology Lab Results on record with NH for the patient. Radiology Reports and Pathology Reports are provided separately, in subsequent sections. Lab Results This section contains the Chemistry/Hematology Results that were resulted 30 days before or 30 daysafter the date of the Encounter. Date/Time Source Result Type Result - Unit Interpretation Reference Range Comment September 06, 2023 02:44 PM [facility] HEMOGLOBIN A1C Specimen Type: BLOOD Comment: Values [...] September 06, 2023 02:05 PM Reporting Lab: [id number] Performing Lab: [place] [id number] HEMOGLOBIN A1C 5.6 4.0-6.0 September 06, 2023 02:44 PM [facility] TSH W/REFLEX TO FREE T4 Specimen Type: [...] September 06, 2023 02:05 PM Reporting Lab: [place] [id number] Performing Lab: [place] [id number] TSH 0.97 u[IU]/mL 0.35-4.94 September 06, 2023 02:44 PM [facility] CBC Specimen Type: BLOOD No comment entered. Ordering Provider: VERONICA DOZIER Report Released Date/Time: September 06, 2023 02:05 PM Reporting Lab: [facility] [id number] Performing Lab: [place] [id number] WBC 6.22 10*3/uL 4.0-11.0 RBC 4.19 10*6/uL L 4.6-6.2 HGB 13.3 g/dL L 13.5-17.9 HCT 39.0 L 41-54 MCV 93.1 fL 80-100 MCH 31.7 pg 27-33 MCHC 34.1 g/dL 32.0-37.5 PLT 207 10*3/uL 150-400 MPV 9.2 fL 7.4-10.4 RDW 13.5 11.5-14.5 September 06, 2023 02:44 PM [facility] COMPREHENSIVE METABOLIC PANEL+MG Specimen Type: PLASMA Comment: [...] September 06, 2023 02:05 PM Reporting Lab: [facility] [id number] Performing Lab: [facility] [id number] CREATININE 1.0 mg/dL 0.7-1.2 UREA NITROGEN 22 [...] 15 U/L <34 .CREAT EGFR(CKD-EPI) 73 >60 Vital Signs: All taken on the encounter date This section contains inpatient and outpatient Vital Signs collected on the date of the Encounter. Date/Time Temperature Pulse Blood Pressure Respiratory Rate SP02 Pain Height Weight Body Mass Index Source September 06, 2023 01:49 PM 97.6 78 138/81 18 95 0 270.2 42 [facility] Social History: Smoking Status (Most current) [...] 17, 2023 01:00 PM VA-TOBACCO FORMER USER [facility] Tobacco Use History This section includes a history of the smoking, or tobacco-related health factors, that were collected on or before the date of the Encounter. The data comes from the NH facility where the Encounter took place. Date/Time Smoking Status/Tobacco Use Comment F acility Jan 17, 2023 01:00 PM VA-TOBACCO QUIT 15 YRS OR MORE [facility] Feb 01, 2022 01:00 PM VA-TOBACCO FORMER USER [facility] Feb 01, 2022 01:00 PM VA-TOBACCO QUIT 15 YRS OR MORE [facility] Feb 02, 2021 01:00 PM VA-TOBACCO FORMER USER [facility] Feb 02, 2021 01:00 PM VA-TOBACCO QUIT 15 YRS OR MORE [facility] Dec 12, 2019 01:25 PM VA-TOBACCO FORMER USER [facility] Dec 12, 2019 01:25 PM VA-TOBACCO QUIT 15 YRS OR MORE [facility] Jun 21, 2018 11:16 AM VA-TOBACCO FORMER USER [facility] Jun 21, 2018 11:16 AM VA-TOBACCO QUIT 15 YRS OR MORE [facility] September 15, 2017 05:29 AM INPT NO TOBACCO USE IN LAST [address] [facility] Jun 29, 2017 02:21 PM FORMER TOBACCO USER 7Y OR GREATE R [facility] September 16, 2016 05:29 AM INPT NO TOBACCO USE IN LAST [address] [facility] May 06, 2016 10:21 AM FORMER TOBACCO USER 7Y OR GREATE R [facility] Mar 24, 2016 11:54 AM INPT NO TOBACCO USE IN LAST [address] [facility] Jun 23, 2015 10:20 AM FORMER TOBACCO USER 7Y OR GREATE R [facility] Jul 04, 2014 02:41 PM FORMER TOBACCO USER 7Y OR GREATE R [facility] Dec 23, 2010 02:12 PM LIFETIME NON-TOBACCO USER [facility] Dec 18, 2010 05:07 PM FORMER TOBACCO USER 7Y OR GREATE R [facility] May 26, 2006 02:20 PM FORMER TOBACCO USER 7Y OR [facility] Advance Directives: All historical and current Section [...] 15, 2016 ADVANCE DIRECTIVE DISCUSSION MAUREEN TREVINO [facility] Jul 15, 2016 ADVANCE DIRECTIVE ARIEL TREVINO [facility] Mar 22, 2016 CLINICAL WARNING PRUDENCIO TYLER [facility] Feb 05, 2011 [facility]ICAL [facility] Dec 17, 2010 CLINICAL WARNING QUE CAMERON [facility] Aug 26, 2003 ADVANCE DIRECTIVE ELGIN HOOPEREL [facility]
--- OUTSIDE RECORDS SUMMARY | 2023-10-26 17:14 | XMS_ITS | Encounter Summary ---
Author Name Department of Vetera Affairs Organization Department of [facility] Affairs Address [address] [place] [address] Care Team Providers Care Telecommunications Cable Jointer Name Role Phone NONA PAULINO Primary Care Provider Unavaila [facility] Insurance Providers: All historical and [...] Mandel's Name Patient's Relationship to Policy Mandel [facility] (WNR) MEDICARE ADVANTAGE [facility] (WNR) May 02, 2016 [id number] [phone] Duarte PANDYA PATIENT [facility] (WNR) MEDICARE ADVANTAGE [facility] (WNR) May 02, 2016 [id number] [phone] Duarte PANDYA PATIENT Selected Encounter This section includes the information on record at PA for the Encounter. Date/Time Encounter Type Encounter Description Reason Provider Source September 06, 2023 11:00 AM OFFICE O/P EST LOW 20 MIN PODIATRY ICD-10-CM 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 LUCINA HAIR Encounter Template Text not used by PA Assessments - Encounter Diagnoses This section includes the primary and secondary diagnoses documented for the Encounter. Date/Time Primary/Secondary Diagnosis Diagnosis Name Provider Source September 06, 2023 03:55 PM PRIMARY Other idiopathic peripheral autonomic neuropathy LUCINA HAIR [facility] September 06, 2023 03:55 PM SECONDARY Corns and callosities LUCINA HAIR [facility] September 06, 2023 03:55 PM SECONDARY Pain in left foot LUCINA HAIR [facility] September 06, 2023 03:55 PM SECONDARY Venous insufficiency (chronic) (peripheral) LUCINA HAIR [facility] Plan of Treatment: Future Appointments (+ 6 months) and Future Tests (+/- 45 days) The Plan of Treatment section includes future care activities for the [facility] This section includes future appointments and future orders which are active, pending or scheduled. Future Appointments This section includes appointments that were scheduled to occur 6 months from the date of the Encounter, up to a maximum of 20 appointments. The data comes from all [facility]. Appointment Date/Time Appointment Type Appointme nt Facility Name Oct 24, 2023 01:30 PM AMBULATORY - NONE [facility] Oct 24, 2023 02:30 PM AMBULATORY - MEDICINE [facility] Nov 02, 2023 01:30 PM [facility] Nov 08, 2023 05:30 PM AMBULATORY - REHAB [facility] Dec 26, 2023 11:00 AM AMBULATORY - REHAB MEDICIN [facility] Jan 11, 2024 01:20 PM [facility] Jan 31, 2024 12:00 PM AMBULATORY - MEDICINE [facility] Active, Pending, and Scheduled Orders [...] from all [facility]. Test Date/Time Test Type Test Details Facility Name September 06, 2023 02:11 PM Consult Order CARDIAC EX TENDED WEAR HOLTER MONITOR OUTPT Cons Outside Property Agent's Choice [facility] Lab Results: +/- 30 days of the encounter This section includes the Chemistry and Hematology Lab Results on record with PA for the patient. Radiology Reports and Pathology Reports are provided separately, in subsequent sections. Lab Results This section contains the Chemistry/Hematology Results that were resulted 30 days before or 30 daysafter the date of the Encounter. Date/Time Source Result Type Result - Unit Interpretation Reference Range Comment September 06, 2023 02:44 PM [facility] HEMOGLOBIN A1C Specimen Type: BLOOD [...] September 06, 2023 02:05 PM Reporting Lab: [facility] [id number] Performing Lab: [facility] [id number] HEMOGLOBIN A1C 5.6 4.0-6.0 September 06, 2023 02:44 PM [facility] TSH W/REFLEX TO FREE T4 [...] September 06, 2023 02:05 PM Reporting Lab: [facility] [id number] Performing Lab: [facility] [id number] TSH 0.97 u[IU]/mL 0.35-4.94 September 06, 2023 02:44 PM [facility] CBC Specimen Type: BLOOD No comment entered. Ordering Provider: VERONICA DOZIER Report Released Date/Time: September 06, 2023 02:05 PM Reporting Lab: [facility] [id number] Performing Lab: [facility] [id number] WBC 6.22 10*3/uL 4.0-11.0 RBC 4.19 10*6/uL L 4.6-6.2 HGB 13.3 g/dL L 13.5-17.9 HCT 39.0 L 41-54 MCV 93.1 fL 80-100 MCH 31.7 pg 27-33 MCHC 34.1 g/dL 32.0-37.5 PLT 207 10*3/uL 150-400 MPV 9.2 fL 7.4-10.4 RDW 13.5 11.5-14.5 September 06, 2023 02:44 PM [facility] COMPREHENSIVE METABOLIC PANEL+MG Specimen Type: [...] September 06, 2023 02:05 PM Reporting Lab: [facility] [id number] Performing Lab: [facility] [id number] CREATININE 1.0 mg/dL 0.7-1.2 UREA NITROGEN 22 [...] 78 138/81 18 95 0 270.2 42 [facility] Social History: Smoking Status (Most current) and Tobacco Use (All prior to encounter date) This section includes the most current, and the historical, smoking and tobacco- related health factors from the [place] facility where the Encounter took place. Current Smoking Status This section includes the most current smoking, or tobacco-related health factor, from the [place] facility where the Encounter took place. Date/Time Current Smoking Status Comment Facil ity Jan 17, 2023 01:00 PM VA-TOBACCO FORMER USER [facility] Tobacco Use History This section includes a history of the smoking, or tobacco-related health factors, that were collected on or before the date of the Encounter. The data comes from the [place] facility where the Encounter took place. Date/Time Smoking Status/Tobacco Use Comment F acility Jan 17, 2023 01:00 PM VA-TOBACCO QUIT 15 YRS OR MORE [facility] Feb 01, 2022 01:00 PM VA-TOBACCO FORMER USER [facility] Feb 01, 2022 01:00 PM VA-TOBACCO QUIT 15 YRS OR MORE [facility] Feb 02, 2021 01:00 PM VA-TOBACCO FORMER USER [facility] Feb 02, 2021 01:00 PM VA-TOBACCO QUIT 15 YRS OR MORE [facility] Dec 12, 2019 01:25 PM VA-TOBACCO FORMER USER [facility] Dec 12, 2019 01:25 PM VA-TOBACCO QUIT 15 YRS OR MORE [facility] Jun 21, 2018 11:16 AM VA-TOBACCO FORMER USER [facility] Jun 21, 2018 11:16 AM VA-TOBACCO QUIT 15 YRS OR MORE [facility] September 15, 2017 05:29 AM INPT NO TOBACCO USE IN LAST 30 D [facility] Jun 29, 2017 02:21 PM FORMER TOBACCO USER 7Y OR GREATE R [facility] September 16, 2016 05:29 AM INPT NO TOBACCO USE IN LAST 30 D [facility] May 06, 2016 10:21 AM FORMER TOBACCO USER 7Y OR GREATE R [facility] Mar 24, 2016 11:54 AM INPT NO TOBACCO USE IN LAST 30 D S [facility] Jun 23, 2015 10:20 AM FORMER TOBACCO USER 7Y OR GREATE R [facility] Jul 04, 2014 02:41 PM FORMER TOBACCO USER 7Y OR GREATE R [facility] Dec 23, 2010 02:12 PM LIFETIME NON-TOBACCO USER [facility] Dec 18, 2010 05:07 PM FORMER TOBACCO USER 7Y OR GREATE R [facility] May 26, 2006 02:20 PM FORMER TOBACCO USER 7Y OR MORISE R [facility] Advance Directives: All historical and current Section Date Range: From patient's date of to the date document was created. This section includes ALL of a patient's completed or amended PA Advance and Rescinded Directives. The entries below indicate that a directive exists for the patient, but an actual copy is not included with this document. The data comes from all [place] facilities. Date Advance Directives Provider Source Jul 15, 2016 ADVANCE DIRECTIVE ARIEL TERVINO [facility] Jul 15, 2016 ADVANCE DIRECTIVE DISCUSSION MAUREEN TREVINO [facility] Mar 22, 2016 CLINICAL WARNING PRUDENCIO TYLER [facility] Feb 05, 2011 CLINICAL [facility] Dec 17, 2010 CLINICAL WARNING QUE CAMERON [facility] Aug 26, 2003 ADVANCE DIRECTIVE ELGIN HOOPER [facility] Encounter Notes: All associated encounter notes This section contains the clinical notes associated to the Encounter. Date/Time Encounter Note(s) Provider Source September 06, 2023 03:47 PM PODIATRY ATTENDING NOTE: LOCAL TITLE: PODIATRY CLINIC NOTE STANDARD TITLE: PODIATRY ATTENDING NOTE DATE OF NOTE: SEPTEMBER 06, 2023@15:47 ENTRY DATE: SEPTEMBER 06, 2023@15:47:12 AUTHOR: LUCINA HAIR EXP COSIGNER: URGENCY: STATUS: COMPLETED ASSESSMENT: 1. Idiopathic peripheral neuropathy 2. Venous insufficiency 3. Hyperkeratosis 4. Acute onset left lateral midfoot painpotential for peroneal tendon sprainimproving on its own 5. Nail dystrophy PLAN: Foot exam complete. Nails 1 through 10 were debrided in length, thickness. Calluses on the right forefoot were debrided no underlying concern for ulcer, infection. In regards to his left lateral midfoot pain discussed that could have been an injury to the peroneal tendon but overall no red flag symptoms and symptoms are improving. She will continue as is. Certainly we discussed obtaining x-rays to further delineate and/or brace/topical medications. Regards to his peripheral neuropathy we discussed continue to assess feet daily along with the use of indoor, outdoor footwear. In regards to his questions about the recurrent callus/pain to the right plantar forefoot. Unfortunate the age of 88 we will continue treating as is. Discussed that hopefully the new shoes will help. We will continue to follow-up every 3 to 4 months. I spent 20 minutes on patient care, including reviewing chart and history. With over 50% of time spent on [id number] education relating to medical condition. DISCLAIMER: This dictation was completed using [employer]. Although I attest that I diligently review and edit my dictations, insensible words or phrases may still be present. Chief Complaint: Foot exam, foot care, pain on the left lateral foot, right fifth digit History of Present Illness: Nanda is a pleasant 88-year-old male comes into clinic today for high risk foot exam, foot care along with pain that is been going on for roughly 1 week to the left lateral foot. He also has callus formation to the right plantar fifth digit. He wants his debrided along with nails trimmed. States that the left lateral foot pain happened 1 week ago in which his foot was planted and he twisted and felt a pop in the left lateral midfoot. States that there was no swelling. He has not noticed any weakness, decreased range of motion, discoloration to skin. Comments that pain is improving. He has not tried any type of treatment Pertinent Medical History:Atrial fibrillation, COPD, cardiomyopathy, venous insufficiency, peripheral neuropathy, hyperkeratosis Allergies: BRAZIL NUTS (Jun 12, 2006) ANIMALS (Dec 17, 2010) Current Medications: Active Outpatient Medications (including Supplies): ACETAMINOPHEN 325MG TAB TAKE TWO TABLETS BY MOUTH THREE ACTIVE TIMES A DAY FOR PAIN -NOT TO EXCEED 4000MG IN 24 HOURS FROM ALL SOURCES ALBUTEROL 90MCG (CFC-F) 200D ORAL INHL INHALE [...] TROUBLE BREATHING - RINSE MOUTH AFTER USING. GLOVE VINYL LARGE PWDR-FREE NONSTERILE USE GLOVE(S) ACTIVE DIRECTED LOSARTAN 50MG TAB TAKE ONE TABLET BY MOUTH EVERY DAY FOR ACTIVE BLOOD PRESSURE NYSTATIN 178346 UNT/GM CREAM APPLY THIN LAYER TOPICALLY ACTIVE [...] ACTIVE EACH NOSTRIL TWICE A DAY NEEDED REVIEW OF SYSTEMS: See the above Physical Exam: Pain Score: 0 (09/06/2023 13:49) Temperature: 97.6 F [36.4 C] (09/06/2023 13:49) Pulse: 78 (09/06/2023 13:49) Blood Pressure: 138/81 (09/06/2023 13:49) Weight: 270.2 lb [122.56 kg] (09/06/2023 13:49) Height: 67 in [170.2 cm] (05/17/2023 14:11) BMI: 42.4 Vascular: Pedal pulses palpable 1/4 at the DP and PT locations bilateral. Capillary refill time is less than 5 seconds. +2 pitting lower extremity edema bilaterally. Varicosities, hemosiderin staining noted bilateral .Hair growth negative. Neurologic: Absent sensation to the bilateral plantar forefoot, midfoot with glove test. Hindfoot intact Dermatologic: Skin is dry flaky but intact Temperature is warm to cool from proximal to distal. Toenails are brittle, thickened, yellow. There are no signs of infection. No exposed bone. No plantar wound or puncture site, no fluctuance or fluid collection noted. Hyperkeratosis noted to the right third distal digit along with the right plantar fifth MTPJthis was debrided no underlying concerns for infection, ulcer. Musculoskeletal: Decreased arch height and contour normal bilaterally. 5/5 strength with plantarflexion, dorsiflexion, inversion, eversion. Focal pain over the lateral midfoot along the distribution of the peroneal tendon. No swelling, erythema. Ankle instability Latest Labs: HGB 13.3 L (09/06/23) MCV 93.1 (09/06/23) WBC 6.22 (09/06/23) PLT 207 (09/06/23) GLUCOSE 154 H (09/06/23) RHEUMATOID FACTOR____ C-REACTIVE PROTEIN____ ALBUMIN 3.6 (09/06/23) No data available URIC ACID____ CALCIUM 9.2 (09/06/23) MAGNESIUM 1.9 (09/06/23) PO4____ CREATININE 1.0 (09/06/23) UREA NITROGEN 22 (09/06/23) No data available for: VIT D 25-OH,TOTAL TSH 0.97 (09/06/23) No data available LAB TESTS SELECTED Collection DT Specimen Test Name Result Units Ref Range 09/06/2023 14:44 BLOOD !! HEMOGLOBIN A1C 5.6 % 4.0 - 6.0 !! Indicates COMMENTS AVAILABLE...Refer to Interim Lab Report. Lipids: CHOLESTEROL____ HDL____ LDL CALCULATION____ LDL Measured: /vincenzo/ LUCINA HAIR NP NURSE PRACTITIONER Signed: 09/06/2023 15:55 LUCINA HAIR [facility] September 06, 2023 11:15 AM SUICIDE PREVENTION RISK ASSESSMENT SCREENING NOTE: LOCAL TITLE: [place] SCREENING NOTE STANDARD TITLE: SUICIDE PREVENTION RISK ASSESSMENT SCREENING NOT DATE OF NOTE: SEPTEMBER 06, 2023@11:15 ENTRY DATE: SEPTEMBER 06, 2023@11:15:09 AUTHOR: TATIANNA CONNELLY EXP COSIGNER: URGENCY: STATUS: COMPLETED C-SSRS Screening [place] Suicide Severity Rating Scale (C-SSRS) screener 1. Over the past month, have you wished you were or wished you could go to sleep and not wake up? No 2. Over the past month, have you had any actual thoughts of killing yourself? No 3. Over the past month, have you been thinking about how you might do this? Response not required due to responses to other questions. 4. Over the past month, have you had these thoughts and had some intention of acting on them? Response not required due to responses to other questions. 5. Over the past month, have you started to work out or worked out the details of how to kill yourself? Response not required due to responses to other questions. 6. If yes, at any time in the past month did you intend to carry out this plan? Response not required due to responses to other questions. 7. In your lifetime, have you ever done anything, started to do anything, or prepared to do anything to end your life (for example, collected pills, obtained a gun, gave away valuables, went to the roof but didn't jump)? No 8. If YES, was this within the past 3 months? Response not required due to responses to other questions. /vincenzo/ TATIANNA CONNELLY RN, WTA-C, CFCS REGISTERED NURSE Signed: 09/06/2023 11:15 TATIANNA CONNELLY [facility]
--- OUTSIDE RECORDS SUMMARY | 2023-10-26 17:15 | XMS_ITS | Encounter Summary ---
Author Name Department of Vetera [facility] Organization Department of [facility] Affairs Address [address] [place] [address] Care Team Providers Care City Letter Carrier Name Role Phone NONA PAULINO Primary Care Provider Unavaila [facility] [place] Insurance Providers: All historical and current [...] Mandel's Name Patient's Relationship to Policy Mandel [facility] (WNR) MEDICARE ADVANTAGE [facility] (R) May 02, 2016 [id number] [phone] Duarte PANDYA PATIENT [facility] (WNR) MEDICARE ADVANTAGE [facility] (WNR) May 02, 2016 [id number] [phone] Duarte PANDYA PATIENT Selected Encounter This section includes the information on record at CT for the Encounter. Date/Time Encounter Type Encounter Description Reason Provider Source September 06, 2023 02:00 PM OFFICE O/P EST MOD 30 MIN CARDIOLOGY ICD-10-CM I49.3 Ventricular premature depolarization THOLAKANAHALL I,VENKATAKRIS HNA NARAS [place] Encounter Template Text not used by CT Assessments - Encounter Diagnoses This section includes the primary and secondary diagnoses documented for the Encounter. Date/Time Primary/Secondary Diagnosis Diagnosis Name Provider Source September 08, 2023 06:26 PM PRIMARY Ventricular premature depolarization VERONICA DOZIER [facility] Plan of Treatment: Future Appointments (+ 6 months) and Future Tests (+/- 45 days) The Plan of Treatment section includes future care activities for the [facility] This section includes future appointments and future orders which are active, pending or scheduled. Future Appointments This section includes appointments that were scheduled to occur 6 months from the date of the Encounter, up to a maximum of 20 appointments. The data comes from all [facility]. Appointment Date/Time Appointment Type Appointme nt Facility Name Oct 24, 2023 01:30 PM AMBULATORY - NONE [facility] Oct 24, 2023 02:30 PM AMBULATORY - MEDICINE [facility] Nov 02, 2023 01:30 PM AMBULATORY - SURGERY [facility] Nov 08, 2023 05:30 PM AMBULATORY - REHAB MEDICIN E [facility] Dec 26, 2023 11:00 AM AMBULATORY - REHAB MED[facility]IN [facility] Jan 11, 2024 01:20 PM AMBULATORY - SURGERY [facility] Jan 31, 2024 12:00 PM AMBULATORY [...] of theEncounter. The data comes from all [facility]. Test Date/Time Test Type Test Details Facility Name September 06, 2023 02:11 PM Consult Order CARDIAC EX TENDED WEAR HOLTER MONITOR OUTPT Cons [employer] Maintainer's Choice [facility] Lab Results: +/- 30 days of the encounter This section includes the Chemistry and Hematology Lab Results on record with CT for the patient. Radiology Reports and Pathology Reports are provided separately, in subsequent sections. Lab Results This section contains the Chemistry/Hematology Results that were resulted 30 days before or 30 daysafter the date of the Encounter. Date/Time Source Result Type Result - Unit Interpretation Reference Range Comment September 06, 2023 02:44 PM [facility] HEMOGLOBIN A1C Specimen Type: BLOOD Comment: [...] September 06, 2023 02:05 PM Reporting Lab: [facility] [id number] Performing Lab: [place] [phone] HEMOGLOBIN A1C 5.6 4.0-6.0 September 06, 2023 02:44 PM [facility] TSH W/REFLEX TO FREE T4 Specimen [...] September 06, 2023 02:05 PM Reporting Lab: [facility] [id number] Performing Lab: [facility] [id number] TSH 0.97 u[IU]/mL 0.35-4.94 September 06, 2023 02:44 PM [facility] COMPREHENSIVE METABOLIC PANEL+MG Specimen Type: PLASMA [...] September 06, 2023 02:05 PM Reporting Lab: [facility] [id number] Performing Lab: [facility] [id number] CREATININE 1.0 mg/dL 0.7-1.2 UREA NITROGEN 22 [...] 15 U/L <34 .CREAT EGFR(CKD-EPI) 73 >60 September 06, 2023 02:44 PM [facility] CBC Specimen Type: BLOOD No comment entered. Ordering Provider: VERONICA DOZIER Report Released Date/Time: September 06, 2023 02:05 PM Reporting Lab: [facility] [id number] Performing Lab: [facility] [id number] WBC 6.22 10*3/uL 4.0-11.0 RBC 4.19 10*6/uL L 4.6-6.2 HGB 13.3 g/dL L 13.5-17.9 HCT 39.0 L 41-54 MCV 93.1 fL 80-100 MCH 31.7 pg 27-33 MCHC 34.1 g/dL 32.0-37.5 PLT 207 10*3/uL 150-400 MPV 9.2 fL 7.4-10.4 RDW 13.5 11.5-14.5 Vital Signs: All taken on the encounter date This section contains inpatient and outpatient Vital Signs collected on the date of the Encounter. Date/Time Temperature Pulse Blood Pressure Respiratory Rate SP02 Pain Height Weight Body Mass Index Source September 06, 2023 01:49 PM 97.6 78 138/81 18 95 0 270.2 42 [facility] [facility] Social History: Smoking Status (Most current) and Tobacco Use (All prior to encounter date) This section includes the most current, and the historical, smoking and tobacco- related health factors from the CT facility where the Encounter took place. Current Smoking Status This section includes the most current smoking, or tobacco-related health factor, from the CT facility where the Encounter took place. Date/Time Current Smoking Status Comment Facil ity Jan 17, 2023 01:00 PM VA-TOBACCO FORMER USER [facility] Tobacco Use History This section includes a history of the smoking, or tobacco-related health factors, that were collected on or before the date of the Encounter. The data comes from the CT facility where the Encounter took place. Date/Time Smoking Status/Tobacco Use Comment F acility Jan 17, 2023 01:00 PM VA-TOBACCO QUIT 15 YRS OR MORE [facility] Feb 01, 2022 01:00 PM VA-TOBACCO FORMER USER [facility] Feb 01, 2022 01:00 PM VA-TOBACCO QUIT 15 YRS OR MORE [facility] Feb 02, 2021 01:00 PM VA-TOBACCO FORMER USER [facility] Feb 02, 2021 01:00 PM VA-TOBACCO QUIT 15 YRS OR MORE [facility] Dec 12, 2019 01:25 PM VA-TOBACCO FORMER USER [facility] Dec 12, 2019 01:25 PM VA-TOBACCO QUIT 15 YRS OR MORE [facility] Jun 21, 2018 11:16 AM VA-TOBACCO FORMER USER [facility] Jun 21, 2018 11:16 AM VA-TOBACCO QUIT 15 YRS OR MORE [facility] September 15, 2017 05:29 AM INPT NO TOBACCO USE IN LAST 30 D [facility] Jun 29, 2017 02:21 PM FORMER TOBACCO USER 7Y OR GREATE R [facility] September 16, 2016 05:29 AM INPT NO TOBACCO USE IN LAST 30 D [facility] May 06, 2016 10:21 AM FORMER TOBACCO USER 7Y OR GREATE R [facility] Mar 24, 2016 11:54 AM INPT NO TOBACCO USE IN LAST 30 D [facility] Jun 23, 2015 10:20 AM FORMER TOBACCO USER 7Y OR GREATE R [facility] Jul 04, 2014 02:41 PM FORMER TOBACCO USER 7Y OR GREATE R [facility] Dec 23, 2010 02:12 PM LIFETIME NON-TOBACCO USER [facility] Dec 18, 2010 05:07 PM FORMER TOBACCO USER 7Y OR GREATE R [facility] May 26, 2006 02:20 PM FORMER TOBACCO USER 7Y OR MORISE R [facility] Advance Directives: All historical and current Section Date Range: From patient's date of to the date document was created. This section includes ALL of a patient's completed or amended CT Advance and Rescinded Directives. The entries below indicate that a directive exists for the patient, but an actual copy is not included with this document. The data comes from all [facility]. Date Advance Directives Provider Source Jul 15, 2016 ADVANCE DIRECTIVE ARIEL TREVINO [place] [facility] Jul 15, 2016 ADVANCE DIRECTIVE DISCUSSION MAUREEN TREVINO [facility] Mar 22, 2016 CLINICAL WARNING PRUDENCIO TYLER [facility] Feb 05, 2011 CLINICAL WARNING SERENITYSACHAKHARIBrookLIZETH [facility] Dec 17, 2010 CLINICAL WARNING [facility] Aug 26, 2003 ADVANCE DIRECTIVE ELGIN HOOPER [facility] Encounter Notes: All associated encounter notes This section contains the clinical notes associated to the Encounter. Date/Time Encounter Note(s) Provider Source September 06, 2023 06:19 PM CARDIOLOGY DIAGNOSTIC STUDY NOTE: LOCAL TITLE: CARDIOLOGY ELECTROPHYSIOLOGY NOTE STANDARD TITLE: CARDIOLOGY DIAGNOSTIC STUDY NOTE DATE OF NOTE: SEPTEMBER 06, 2023@18:19 ENTRY DATE: SEPTEMBER 08, 2023@18:19:18 AUTHOR: SHERRON BRISCOE COSIGNER: URGENCY: STATUS: COMPLETED Cardiac/Dysrhythmia Clinic Note Nurses Notes Reviewed and Agree Chief Complaint/Reason for visit: 1. Dizziness 2. PVCs History of present illness: 88-year-old pleasant patient with history of previous papillary muscle PVC ablation did fairly well for several years. His complaints lately have been significant amount of dizziness which seems to occur anytime not necessarily related to posture. He has been quite bothered and struggling with it. Several medication changes for performed without significant benefit. I asked him to check his orthostatic symptoms although his blood pressures checked at sitting and upright posture he is diligently done for several days his symptoms are not consistent and many episodes of significant orthostatic drop was also noted but he cannot pinpoint if the symptoms correlated with that. Otherwise he is in general doing well without any symptoms of dyspnea on exertion or chest discomfort. Review of Systems: Constitutional: denies Derm: denies HEENT: denies CV: denies Resp: denies GI: denies Musculoskeletal: denies Neuro: dizziness : denies Psych: Not in distress Pertinent Past Medical History: Hypertension ([facility] 44922161) Simple obesity ([facility] [id number]) Gastroesophageal reflux disease (SCT 235IMPOTENCE, ORGANIC (ICD-9-CM 607.84) Asthma ([facility] [id number]) ANEMIA NOS (ICD-9-CM 285.9) HEMATURIA (ICD-9-CM 599.7) Sleep apnea ([facility] 13266526) Empyema, Pleural (ICD-9-CM 510.9) Bigeminy (ICD-9-CM 427.89) Bradycardia (ICD-9-CM 427.89) Cardiomyopathy ([facility] 32736253) Arrhythmia ([facility] [id number]) Cataract nos (ICD-9-CM 366.9) Pseudophakia (ICD-9-CM V43.1) Benign prostatic hyperplasia ([facility] [id number]) Dizziness and giddiness ([facility] [id number]) Gomez's esophagus ([facility] [id number]) Atrial fibrillation ([facility] 36739131) COPD - Chronic obstructive pulmonary disease ([facility] 86969373) Nocturia ([facility] [id number]) Allergies: BRAZIL NUTS (Jun 12, 2006) ANIMALS (Dec 17, 2010) Medications: Active Outpatient Medications (including Supplies): ACETAMINOPHEN [...] EVERY DAY FOR ACTIVE BLOOD PRESSURE NYSTATIN [id number] UNT/GM CREAM APPLY THIN LAYER TOPICALLY ACTIVE [...] NEEDED PHYSICAL EXAM: General: Not in distress doing well Vitals: BP: 138/81 (09/06/2023 13:49) P: 78 (09/06/2023 13:49) R: 18 (09/06/2023 13:49) T: 97.6 F [36.4 C] (09/06/2023 13:49) WT: 270.2 lb [122.56 kg] (09/06/2023 13:49) Pain: 0 (09/06/2023 13:49) Oral/Throat: Moist and clear. Neck/Thyroid: no JVD. Cardiac: RRR, No murmurs, gallops, rubs, S1 S2. Chest/Lungs: Bilaterally clear. 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 It seems to be much more closer to annular possibly left ventricular outflow tract or closer to the septum either RVOT/LVOT has twelve- lead the PVCs were not available to visualize at this time... Orthostatic changes although noted unknown the symptoms correlated with it. Plan: I had extensive discussion with the patient whether or not to add Prostigmin if the orthostasis is truly reason for his problems. But will do the Zio patch to assess the PVC burden and discuss further regarding how to approach the situation. He was happy with the plan. /vincenzo/ MARISELA BRISCOE MD STAFF PHYSICIAN - CARDIAC METAL CASTING TRADES WORKER Signed: 09/08/2023 18:27 ACOSTA BRISCOE [facility] September 06, 2023 01:49 PM INTERNAL MEDICINE OUTPATIENT NOTE: LOCAL TITLE: MEDICINE CLINIC NURSING NOTE STANDARD TITLE: INTERNAL MEDICINE OUTPATIENT NOTE DATE OF NOTE: SEPTEMBER 06, 2023@13:49 ENTRY DATE: SEPTEMBER 06, 2023@13:50:03 AUTHOR: JESSICA BARFIELD EXP COSIGNER: URGENCY: STATUS: COMPLETED TYPE OF VISIT: Appointment Check In Type of appointment: In-person appointment REASON FOR VISIT: Scheduled clinic visit ALLERGIES: BRAZIL NUTS (Jun 12, 2006) ANIMALS (Dec 17, 2010) VITAL SIGNS: Blood Pressure: 138/81 (09/06/2023 13:49) Pulse: 78 (09/06/2023 13:49) Respiration: 18 (09/06/2023 13:49) Temperature: 97.6 F [36.4 C] (09/06/2023 13:49) Weight: 270.2 lb [122.56 kg] (09/06/2023 13:49) Height: 67 in [170.2 cm] (05/17/2023 14:11) BMI: 42.4 O2 Sat: 95% (09/06/2023 13:49) Pain: 0 (09/06/2023 13:49) PAIN SCREEN: Patient is not having significant pain that they wish to discuss with their provider today. MEDICATION Over the Counter/Herbal Medications: The patient states that they take some outside medications and/or herbals. /vincenzo/ JESSICA BARFIELD LPN Licensed Practical Nurse Signed: 09/06/2023 13:50 JESSICA BARFIELD [facility]
--- OUTSIDE RECORDS SUMMARY | 2023-10-26 17:15 | XMS_ITS | Encounter Summary ---
Author Name Department of [facility] Organization Department of Vetera [facility] Address [address] [place] [address] Care Team Providers Care Ict Managers Name Role Phone JEFFERSON NONA Primary Care Provider Unavaila ble Insurance Providers: [...] Mandel's Name Patient's Relationship to Policy Mandel [facility] (WNR) MEDICARE ADVANTAGE [facility] (WNR) May 02, 2016 [id number] [phone] Duarte PANDYA PATIENT [facility] (WNR) MEDICARE [facility] (WNR) May 02, 2016 [id number] [phone] Duarte PANDYA PATIENT Selected Encounter This section includes the information on record at [place] for the Encounter. Date/Time Encounter Type Encounter Description Reason Provider Source September 06, 2023 02:30 PM ECG MONIT/REPRT UP TO 48 HRS AMB ECG MONITORING ICD-10-CM Z13.6 Encounter for screening for cardiovascular disorders THVERONICA MCCLURE IHE Encounter Template Text not used by ME Assessments - Encounter Diagnoses This section includes the primary and secondary diagnoses documented for the Encounter. Date/Time Primary/Secondary Diagnosis Diagnosis Name Provider Source September 06, 2023 02:33 PM PRIMARY Encounter for screening for cardiovascular disorders NY RUIZ [facility] Plan of Treatment: Future Appointments (+ 6 months) and Future Tests (+/- 45 days) The Plan of Treatment section includes future care activities for the patient [facility]. This section includes future appointments and future orders which are active, pending or scheduled. Future Appointments This section includes appointments that were scheduled to occur 6 months from the date of the Encounter, up to a maximum of 20 appointments. The data comes from all [facility]. Appointment Date/Time Appointment Type Appointme nt Facility Name Oct 24, 2023 01:30 PM AMBULATORY - NONE [facility] Oct 24, 2023 02:30 PM AMBULATORY - MEDICINE [facility] Nov 02, 2023 01:30 PM AMBULATORY - SURGERY [facility] Nov 08, 2023 05:30 PM AMBULATORY - REHAB MEDICIN [facility] Dec 26, 2023 11:00 AM AMBULATORY - REHAB [facility] Jan 11, 2024 01:20 PM AMBULATORY - SURGERY [facility] Jan 31, 2024 12:00 PM AMBULATORY - MEDICINE [facility] Active, Pending, and Scheduled Orders This section includes a listing of several types of active, pending, and scheduled orders, including clinic medications orders, diagnostic test orders, procedure orders and consult orders; where the start date of the order is 45 days before the date of the Encounter or 45 days after the date of theEncounter. The data comes from all [facility]. Test Date/Time Test Type Test Details Facility Name September 06, 2023 02:11 PM Consult Order CARDIAC EX TENDED WEAR HOLTER MONITOR OUTPT Cons [employer] Lab Results: +/- 30 days of the encounter This section includes the Chemistry and Hematology Lab Results on record with [place] for the patient. Radiology Reports and Pathology Reports are provided separately, in subsequent sections. Lab Results This section contains the Chemistry/Hematology Results that were resulted 30 days before or 30 daysafter the date of the Encounter. Date/Time Source Result Type Result - Unit Interpretation Reference Range Comment September 06, 2023 02:44 PM [facility] HEMOGLOBIN A1C Specimen Type: BLOOD Comment: Values [...] September 06, 2023 02:05 PM Reporting Lab: [facility] [id number] Performing Lab: [place] [phone] HEMOGLOBIN A1C 5.6 4.0-6.0 September 06, 2023 02:44 PM [facility] TSH W/REFLEX TO FREE T4 Specimen Type: [...] September 06, 2023 02:05 PM Reporting Lab: [facility] [id number] Performing Lab: [facility] [id number] TSH 0.97 u[IU]/mL 0.35-4.94 September 06, 2023 02:44 PM [facility] COMPREHENSIVE METABOLIC PANEL+MG Specimen Type: PLASMA Comment: [...] September 06, 2023 02:05 PM Reporting Lab: [facility] [id number] Performing Lab: [facility] [id number] CREATININE 1.0 mg/dL 0.7-1.2 UREA NITROGEN 22 [...] 73 >60 September 06, 2023 02:44 PM [facility] CBC Specimen Type: BLOOD No comment entered. Ordering Provider: VERONICA DOZIER Report Released Date/Time: September 06, 2023 02:05 PM Reporting Lab: [facility] [id number] Performing Lab: [facility] [id number] WBC 6.22 10*3/uL 4.0-11.0 RBC 4.19 10*6/uL [...] 18 95 0 270.2 42 [facility] Social History: Smoking Status (Most current) and Tobacco Use (All prior to encounter date) This section includes the most current, and the historical, smoking and tobacco- related health factors from the [place] facility where the Encounter took place. Current Smoking Status This section includes the most current smoking, or tobacco-related health factor, from the [place] facility where the Encounter took place. Date/Time Current Smoking Status Comment Facil ity Jan 17, 2023 01:00 PM VA-TOBACCO FORMER USER [facility] Tobacco Use History This section includes a history of the smoking, or tobacco-related health factors, that were collected on or before the date of the Encounter. The data comes from the [place] facility where the Encounter took place. Date/Time Smoking Status/Tobacco Use Comment F acility Jan 17, 2023 01:00 PM VA-TOBACCO QUIT 15 YRS OR MORE [facility] Feb 01, 2022 01:00 PM VA-TOBACCO FORMER USER [facility] Feb 01, 2022 01:00 PM VA-TOBACCO QUIT 15 YRS OR MORE [facility] Feb 02, 2021 01:00 PM VA-TOBACCO FORMER USER [facility] Feb 02, 2021 01:00 PM VA-TOBACCO QUIT 15 YRS OR MORE [facility] Dec 12, 2019 01:25 PM VA-TOBACCO FORMER USER [facility] Dec 12, 2019 01:25 PM VA-TOBACCO QUIT 15 YRS OR MORE [facility] Jun 21, 2018 11:16 AM VA-TOBACCO FORMER USER [facility] Jun 21, 2018 11:16 AM VA-TOBACCO QUIT 15 YRS OR MORE [facility] September 15, 2017 05:29 AM INPT NO TOBACCO USE IN LAST 30 D [facility] Jun 29, 2017 02:21 PM FORMER TOBACCO USER 7Y OR GREATE R [facility] September 16, 2016 05:29 AM INPT NO TOBACCO USE IN LAST 30 D [facility] May 06, 2016 10:21 AM FORMER TOBACCO USER 7Y OR GREATE R [facility] Mar 24, 2016 11:54 AM INPT NO TOBACCO USE IN LAST 30 D [facility] Jun 23, 2015 10:20 AM FORMER TOBACCO USER 7Y OR GREATE R [facility] Jul 04, 2014 02:41 PM FORMER TOBACCO USER 7Y OR GREATE R [facility] Dec 23, 2010 02:12 PM LIFETIME NON-TOBACCO USER [facility] Dec 18, 2010 05:07 PM FORMER TOBACCO USER 7Y OR GREATE R [facility] May 26, 2006 02:20 PM FORMER TOBACCO USER 7Y OR GREATE R [facility] Advance Directives: All historical and current Section Date Range: From patient's date of to the date document was created. This section includes ALL of a patient's completed or amended [place] Advance and Rescinded Directives. The entries below indicate that a directive exists for the patient, but an actual copy is not included with this document. The data comes from all [place] facilities. Date Advance Directives Provider Source Jul 15, 2016 ADVANCE DIRECTIVE DISCUSSION MAUREEN TREVINO [facility] Jul 15, 2016 ADVANCE DIRECTIVE ARIEL TREVINO [place] [facility] Mar 22, 2016 CLINICAL WARNING PRUDENCIO TYLER [facility] Feb 05, 2011 CLINICAL WARNING HARVEYLIZETH [facility]ON [facility] Dec 17, 2010 CLINICAL WARNING KEMALSHUKRIQUE [facility] Aug 26, 2003 ADVANCE DIRECTIVE ELGIN HOOPER [facility] Encounter Notes: All associated encounter notes This section contains the clinical notes associated to the Encounter. Date/Time Encounter Note(s) Provider Source September 06, 2023 02:41 PM CARDIOLOGY OUTPATI ENT NOTE: LOCAL TITLE: CARDIOLOGY CLINIC TECHNOLOGIST NOTE STANDARD TITLE: CARDIOLOGY OUTPATIENT NOTE DATE OF NOTE: SEPTEMBER 06, 2023@14:41 ENTRY DATE: SEPTEMBER 06, 2023@14:41:18 AUTHOR: [place] RUIZ COSIGNER: URGENCY: STATUS: COMPLETED Event Monitor ZIO Monitor Clinical indication for ZIO: Dizziness Enrolled patient. Assessed monitor placement. Prepped skin. - SHAVE area if hair is present - ABRADE skin, applying pressure for 40 broad strokes -10 times diagonally left, diagonally right, across and down (40 times total). - CLEAN skin thoroughly with both alcohol pads. Let dry for 1 minute. Applied monitor. Activate ZIO Monitor. Education given to patient along with ZIO Patient Instructions Pamphlet and Button Press Log. Date to remove patch: August Instructed to return the monitor by mail along with the log book in the pre- addressed return box and drop into [employer] Postal [employer] mailbox. Registered device with [employer]; serial number: [id number]. /es/ [place] RUIZ Mud Mixer Operator Signed: 09/06/2023 14:42 [place] RUIZ [facility]
--- OUTSIDE RECORDS SUMMARY | 2023-10-26 17:16 | XMS_ITS | Encounter Summary ---
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 Name Role Phone ELIZABETHNONA GUTHRIE Primary Care Provider [facility] Insurance Providers: All historical and [...] Mandel's Name Patient's Relationship to Policy Mandel [facility] (WNR) MEDICARE [facility] (WNR) May 02, 2016 [id number] [phone] Duarte PANDYA PATIENT [facility] (WNR) MEDICARE ADVANTAGE [facility] (WNR) May 02, 2016 [id number] [phone] Duarte PANDYA PATIENT Selected Encounter This section includes the information on record at [place] for the Encounter. Date/Time Encounter Type Encounter Description Reason Pro vider Source Oct 24, 2023 02:12 PM Outpatient Encounter PRIMARY CARE/MEDICINE IHE Encounter Template Text not used by [place] Plan of Treatment: Future Appointments (+ 6 months) and Future Tests (+/- 45 days) The Plan of Treatment section includes future care activities for the [facility] [place] [facility] This section includes future appointments and future orders which are active, pending or scheduled. Future Appointments This section includes appointments that were scheduled to occur 6 months from the date of the Encounter, up to a maximum of 20 appointments. The data comes from all [facility]. Appointment Date/Time Appointment Type Appointme nt Facility Name Nov 02, 2023 01:30 PM AMBULATORY - SURGERY [facility] Nov 08, 2023 05:30 PM AM[facility]ULATORY - [facility] Dec 26, 2023 11:00 AM AMBULATORY - REHAB [facility] Jan 11, 2024 01:20 PM AMBULATORY - SURGERY [facility] Jan 31, 2024 12:00 PM AMBULATORY - MEDICINE [facility] Active, Pending, and Scheduled Orders This section includes a listing of several types of active, pending, and scheduled orders, including clinic medications orders, diagnostic test orders, procedure orders and consult orders; where the start date of the order is 45 days before the date of the Encounter or 45 days after the date of theEncounter. The data comes from all [facility]. 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 Radiology Reports and Pathology Reports are provided separately, in subsequent sections. Lab Results This section contains the Chemistry/Hematology Results that were resulted 30 days before or 30 daysafter the date of the Encounter. Date/Time Source Result Type Result - Unit Interpretation Reference Range Comment Oct 24, 2023 01:17 PM [facility] HEMOGLOBIN A1C Specimen Type: BLOOD Comment: Values obtained from A1C measurements can vary. For typical A1C assays, a reported value of 7.0 could actually be between 6.7 and 7.3 if measured by a reference method. A reported value of 9.0 could actually be between 8.7 and 9.3. Ref: http://www.ngs p.org/CAPdata. asp Ordering Provider: LES PAULINO Report Released Date/Time: Jul 28, 2023 11:33 PM Reporting Lab: [facility] [id number] Performing Lab: [facility] [id number] HEMOGLOBIN A1C 5.5 4.0-6.0 Oct 24, 2023 01:17 PM [facility] FOLATE Specimen Type: SERUM No comment entered. Ordering Provider: LES PAULINO Report Released Date/Time: Jul 28, 2023 11:33 PM Reporting Lab: [facility] [id number] Performing Lab: [facility] [id number] FOLATE 8.1 ng/mL >7.0 Oct 24, 2023 01:17 PM [facility] B 12 Specimen Type: SERUM No comment entered. Ordering Provider: LES PAULINO Report Released Date/Time: Jul 28, 2023 11:33 PM Reporting Lab: [facility] [id number] Performing Lab: [facility] [id number] B 12 316 pg/mL 213-816 Oct 24, 2023 01:17 PM [facility] LIPID PANEL,NON-FASTING Specimen Type: PLASMA No comment entered. Ordering Provider: LES PAULINO Report Released Date/Time: Jul 28, 2023 11:33 PM Reporting Lab: [facility] [id number] Performing Lab: [facility] [id number] CHOLESTEROL 150 mg/dL <199 .HDL 54 mg/dL >40 LDL CALCULATION 84 mg/dL <99 VLDL CALCULATION 12 mg/dL <29 NON HDL CHOLESTEROL 96 mg/dL <129 TRIG(NON FASTING) 60 mg/dL <149 Oct 24, 2023 01:17 PM [facility] BASIC METABOLIC PANEL+MG Specimen Type: PLASMA No comment entered. Ordering Provider: LES PAULINO Report Released Date/Time: Jul 28, 2023 11:33 PM Reporting Lab: [facility] [id number] Performing Lab: [facility] [phone] CREATININE 1.0 mg/dL 0.7-1.2 UREA NITROGEN 23 mg/dL 8-26 GLUCOSE 86 mg/dL 70-100 SODIUM 141 mmol/L 136-145 POTASSIUM 4.7 mmol/L 3.5-5.1 CHLORIDE 108 mmol/L H 98-107 CO2 25 mmol/L 22-29 CALCIUM 9.6 mg/dL 8.4-10.2 MAGNESIUM 2.0 mg/dL 1.6-2.6 ANION GAP 8 mmol/L 5-15 .CREAT EGFR(CKD-EPI) 73 >60 Oct 24, 2023 01:17 PM [facility] CBC Specimen Type: BLOOD No comment entered. Ordering Provider: LES PAULINO Report Released Date/Time: Jul 28, 2023 11:33 PM Reporting Lab: [facility] [phone] Performing Lab: [facility] [phone] WBC 7.64 10*3/uL 4.0-11.0 RBC 4.19 10*6/uL L 4.6-6.2 HGB 12.9 g/dL L 13.5-17.9 HCT 39.5 L 41-54 MCV 94.3 fL 80-100 MCH 30.8 pg 27-33 MCHC 32.7 g/dL 32.0-37.5 PLT 213 10*3/uL 150-400 MPV 9.1 fL 7.4-10.4 RDW 13.7 11.5-14.5 Oct 24, 2023 01:17 PM [facility] IRON GROUP Specimen Type: SERUM No comment entered. Ordering Provider: LES PAULINO Report Released Date/Time: Jul 28, 2023 11:33 PM Reporting Lab: [facility] [id number] Performing Lab: [facility] [phone] IRON 83 ug/dL 65-175 TIBC,CALCULAT ED 285 ug/dL 250-425 FERRITIN 150.3 ng/mL 21.8-274.7 IRON SATURATION 29 20-50 TRANSFERRIN 228 mg/dL 163-382 Vital Signs: All taken on the encounter date This section contains inpatient and outpatient Vital Signs collected on the date of the Encounter. Date/Time Temperature Pulse Blood Pressure Respiratory Rate SP02 Pain Height Weight Body Mass Index Source Oct 24, 2023 02:33 PM 97.9 76 128/68 16 93 0 268.7 42 [facility] Social History: Smoking Status (Most current) and Tobacco Use (All prior to encounter date) This section includes the most current, and the historical, smoking and tobacco- related health factors from the [place] facility where the Encounter took place. Current Smoking Status This section includes the most current smoking, or tobacco-related health factor, from the [place] facility where the Encounter took place. Date/Time Current Smoking Status Comment Facil ity Oct 24, 2023 02:30 PM VA-TOBACCO FORMER USER [facility] Tobacco Use History This section includes a history of the smoking, or tobacco-related health factors, that were collected on or before the date of the Encounter. The data comes from the [place] facility where the Encounter took place. Date/Time Smoking Status/Tobacco Use Comment F acility Oct 24, 2023 02:30 PM VA-TOBACCO QUIT 15 YRS OR MORE [facility] Jan 17, 2023 01:00 PM VA-TOBACCO FORMER USER [facility] Jan 17, 2023 01:00 PM VA-TOBACCO QUIT 15 YRS OR MORE [facility] Feb 01, 2022 01:00 PM VA-TOBACCO FORMER USER [facility] Feb 01, 2022 01:00 PM VA-TOBACCO QUIT 15 YRS OR MORE [facility] Feb 02, 2021 01:00 PM VA-TOBACCO FORMER USER [facility] Feb 02, 2021 01:00 PM VA-TOBACCO QUIT 15 YRS OR MORE [facility] Dec 12, 2019 01:25 PM VA-TOBACCO FORMER USER [facility] Dec 12, 2019 01:25 PM VA-TOBACCO QUIT 15 YRS OR MORE [facility] Jun 21, 2018 11:16 AM VA-TOBACCO FORMER USER [facility] Jun 21, 2018 11:16 AM VA-TOBACCO QUIT 15 YRS OR MORE [facility] September 15, 2017 05:29 AM INPT NO TOBACCO USE IN LAST 30 D [facility] Jun 29, 2017 02:21 PM FORMER TOBACCO USER 7Y OR GREATE R [facility] September 16, 2016 05:29 AM INPT NO TOBACCO USE IN LAST 30 D [facility] May 06, 2016 10:21 AM FORMER TOBACCO USER 7Y OR GREATE R [facility] Mar 24, 2016 11:54 AM INPT NO TOBACCO USE IN LAST 30 D [facility] Jun 23, 2015 10:20 AM FORMER TOBACCO USER 7Y OR GREATE R [facility] Jul 04, 2014 02:41 PM FORMER TOBACCO USER 7Y OR GREATE R [facility] Dec 23, 2010 02:12 PM LIFETIME NON-TOBACCO USER [facility] Dec 18, 2010 05:07 PM FORMER TOBACCO USER 7Y OR GREATE R [facility] May 26, 2006 02:20 PM FORMER TOBACCO USER 7Y OR GREATE R [facility] Advance Directives: All historical and current Section Date Range: From patient's date of to the date document was created. This section includes ALL of a patient's completed or amended [place] Advance and Rescinded Directives. The entries below indicate that a directive exists for the patient, but an actual copy is not included with this document. The data comes from all [facility]. Date Advance Directives Provider Source Jul 15, 2016 ADVANCE DIRECTIVE ARIEL TREVINO [facility] Jul 15, 2016 ADVANCE DIRECTIVE DISCUSSION MAUREEN TREVINO [facility] Mar 22, 2016 CLINICAL WARNING PRUDENCIO TYLER [facility] Feb 05, 2011 CLINICAL WARNING [facility] Dec 17, 2010 CLINICAL WARNING QUE CAMERON [facility] Aug 26, 2003 ADVANCE DIRECTIVE ELGIN HOOPER [facility] Encounter Notes: All associated encounter notes This section contains the clinical notes associated to the Encounter. Date/Time Encounter Note(s) Provider Source Oct 24, 2023 02:12 PM ADVANCE DIRECTIVE: LOCAL TITLE: AD NOTIFICATION AND SCREENING STANDARD TITLE: ADVANCE DIRECTIVE DATE OF NOTE: OCT 24, 2023@14:12 ENTRY DATE: OCT 24, 2023@14:12:55 AUTHOR: RACHEL PERERA EXP COSIGNER: URGENCY: STATUS: COMPLETED ADVANCE DIRECTIVE NOTIFICATION: Patient was given written notification of the following rights: 1. Accept or refuse any medical treatment. 2. Complete a durable power of deputy attorney general for health care. 3. Complete a living will. ADVANCE DIRECTIVE SCREENING: Does patient have an Advance Directive? The patient has an Advance Directive. Does the patient wish to make any changes or revoke their current Advance Directive? No changes requested at this time. /vincenzo/ RACHEL PERERA Advance Herb Digger Signed: 10/24/2023 14:13 RACHEL PERERA [facility]
--- OUTSIDE RECORDS SUMMARY | 2023-10-26 17:17 | XMS_ITS | Encounter Summary ---
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 Date/Time Encounter Type Encounter Description Reason Provider Source Oct 24, 2023 02:30 PM OFFICE O/P EST HI 40 MIN PRIMARY CARE/MEDICINE ICD-10-CM I49.9 Cardiac arrhythmia, unspecified LES PAULINO UL IHE Encounter Template Text not used by [place] Assessments - Encounter Diagnoses This section includes the primary and secondary diagnoses documented for the Encounter. Date/Time Primary/Secondary Diagnosis Diagnosis Name Provider Source Oct 26, 2023 12:59 PM PRIMARY Cardiac arrhythmia, unspecified RA [facility]ERSON [facility] Oct 26, 2023 12:59 PM SECONDARY Benign prostatic hyperplasia with lower urinary tract [facility] Oct 26, 2023 12:59 PM SECOND[facility] Cardiomyopathy, [facility] Oct 26, 2023 12:59 PM SECONDARY Chronic obstructive pulmonary disease, unspecified [facility] Oct 26, 2023 12:59 PM SECONDARY Dizziness and giddiness [facility] Oct 26, 2023 12:59 PM SECONDARY Essential (primary) hypertension [facility] Oct 26, 2023 12:59 PM SECONDARY Gastro-esophageal reflux disease without esophagitis [facility] Oct 26, 2023 12:59 PM SECONDARY Unspecified atrial fibrillation [facility] Plan of Treatment: Future Appointments (+ 6 months) and Future Tests (+/- 45 days) The Plan of Treatment section includes future care activities for the patient from all [facility]. This section includes future appointments and future orders which are active, pending or scheduled. Future Appointments This section includes appointments that were scheduled to occur 6 months from the date of the Encounter, up to a maximum of 20 appointments. The data comes from all [place] treatment facilities. Appointment Date/Time Appointment Type Appointme nt Facility Name Nov 02, 2023 01:30 PM AMBULATORY - SURGERY [facility] Nov 08, 2023 05:30 PM AMBULATORY - REHAB MEDICIN [facility] Dec 26, 2023 11:00 AM AMBULATORY - REHAB MEDICIN [facility] Jan 11, 2024 01:20 PM AMBULATORY - SURGERY [facility] Jan 31, 2024 12:00 PM AMBULATORY - MEDICINE [facility] Active, Pending, and Scheduled Orders This section includes a listing of several types of active, pending, and scheduled orders, including clinic medications orders, diagnostic test orders, procedure orders and consult orders; where the start date of the order is 45 days before the date of the Encounter or 45 days after the date of theEncounter. The data comes from all [place] treatment facilities. 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 Radiology Reports and Pathology Reports are provided separately, in subsequent sections. Lab Results This section contains the Chemistry/Hematology Results that were resulted 30 days before or 30 daysafter the date of the Encounter. Date/Time Source Result Type Result - Unit Interpretation Reference Range Comment Oct 24, 2023 01:17 PM [facility] HEMOGLOBIN A1C Specimen Type: BLOOD Comment: [...] Jul 28, 2023 11:33 PM Reporting Lab: [facility] [id number] Performing Lab: [facility] [id number] HEMOGLOBIN A1C 5.5 4.0-6.0 Oct 24, 2023 01:17 PM [facility] B 12 Specimen Type: SERUM No comment entered. Ordering Provider: LES PAULINO Report Released Date/Time: Jul 28, 2023 11:33 PM Reporting Lab: [facility] [id number] Performing Lab: [facility] [id number] B 12 316 pg/mL 213-816 Oct 24, 2023 01:17 PM [facility] FOLATE Specimen Type: SERUM No comment entered. Ordering Provider: LES PAULINO Report Released Date/Time: Jul 28, 2023 11:33 PM Reporting Lab: [facility] [id number] Performing Lab: [facility] [id number] FOLATE 8.1 ng/mL >7.0 Oct 24, 2023 01:17 PM [facility] LIPID PANEL,NON-FASTING Specimen Type: PLASMA No comment entered. Ordering Provider: LES PAULINO Report Released Date/Time: Jul 28, 2023 11:33 PM Reporting Lab: [facility] [phone] Performing Lab: [facility] [phone] CHOLESTEROL 150 mg/dL <199 .HDL 54 mg/dL >40 LDL CALCULATION 84 mg/dL <99 VLDL CALCULATION 12 mg/dL <29 NON HDL CHOLESTEROL 96 mg/dL <129 TRIG(NON FASTING) 60 mg/dL <149 Oct 24, 2023 01:17 PM [facility] BASIC METABOLIC PANEL+MG Specimen Type: PLASMA No comment entered. Ordering Provider: LES PAULINO Report Released Date/Time: Jul 28, 2023 11:33 PM Reporting Lab: [facility] [id number] Performing Lab: [facility] [phone] CREATININE 1.0 mg/dL 0.7-1.2 UREA NITROGEN 23 mg/dL 8-26 GLUCOSE 86 mg/dL 70-100 SODIUM 141 mmol/L 136-145 POTASSIUM 4.7 mmol/L 3.5-5.1 CHLORIDE 108 mmol/L H 98-107 CO2 25 mmol/L 22-29 CALCIUM 9.6 mg/dL 8.4-10.2 MAGNESIUM 2.0 mg/dL 1.6-2.6 ANION GAP 8 mmol/L 5-15 .CREAT EGFR(CKD-EPI) 73 >60 Oct 24, 2023 01:17 PM [facility] CBC Specimen Type: BLOOD No comment entered. Ordering Provider: LES PAULINO Report Released Date/Time: Jul 28, 2023 11:33 PM Reporting Lab: [facility] [id number] Performing Lab: [facility] [phone] WBC 7.64 10*3/uL 4.0-11.0 RBC 4.19 10*6/uL L 4.6-6.2 HGB 12.9 g/dL L 13.5-17.9 HCT 39.5 L 41-54 MCV 94.3 fL 80-100 MCH 30.8 pg 27-33 MCHC 32.7 g/dL 32.0-37.5 PLT 213 10*3/uL 150-400 MPV 9.1 fL 7.4-10.4 RDW 13.7 11.5-14.5 Oct 24, 2023 01:17 PM [facility] IRON GROUP Specimen Type: SERUM No comment entered. Ordering Provider: LES PAULINO Report Released Date/Time: Jul 28, 2023 11:33 PM Reporting Lab: [facility] [phone] Performing Lab: [facility] [phone] IRON 83 ug/dL 65-175 TIBC,CALCULAT ED 285 [...] 76 128/68 16 93 0 268.7 42 [facility] Social History: Smoking Status (Most current) and Tobacco Use (All prior to encounter date) This section includes the most current, and the historical, smoking and tobacco- related health factors from the [place] facility where the Encounter took place. Current Smoking Status This section includes the most current smoking, or tobacco-related health factor, from the [place] facility where the Encounter took place. Date/Time Current Smoking Status Comment Nette ity Oct 24, 2023 02:30 PM VA-TOBACCO FORMER USER [facility] Tobacco Use History This section includes a history of the smoking, or tobacco-related health factors, that were collected on or before the date of the Encounter. The data comes from the [place] facility where the Encounter took place. Date/Time Smoking Status/Tobacco Use Comment F acility Oct 24, 2023 02:30 PM VA-TOBACCO QUIT 15 YRS OR MORE [facility] Jan 17, 2023 01:00 PM VA-TOBACCO FORMER USER [facility] Jan 17, 2023 01:00 PM VA-TOBACCO QUIT 15 YRS OR MORE [facility] Feb 01, 2022 01:00 PM VA-TOBACCO FORMER USER [facility] Feb 01, 2022 01:00 PM VA-TOBACCO QUIT 15 YRS OR MORE [facility] Feb 02, 2021 01:00 PM VA-TOBACCO FORMER USER [facility] Feb 02, 2021 01:00 PM VA-TOBACCO QUIT 15 YRS OR MORE [facility] Dec 12, 2019 01:25 PM VA-TOBACCO FORMER USER [facility] Dec 12, 2019 01:25 PM VA-TOBACCO QUIT 15 YRS OR MORE [facility] Jun 21, 2018 11:16 AM VA-TOBACCO FORMER USER [facility] Jun 21, 2018 11:16 AM VA-TOBACCO QUIT 15 YRS OR MORE [facility] September 15, 2017 05:29 AM INPT NO TOBACCO USE IN LAST 30 D [facility] Jun 29, 2017 02:21 PM FORMER TOBACCO USER 7Y OR GREATE R [facility] September 16, 2016 05:29 AM INPT NO TOBACCO USE IN LAST 30 D [facility] May 06, 2016 10:21 AM FORMER TOBACCO USER 7Y OR GREATE R [facility] Mar 24, 2016 11:54 AM INPT NO TOBACCO USE IN LAST 30 D [facility] Jun 23, 2015 10:20 AM FORMER TOBACCO USER 7Y OR GREATE R [facility] Jul 04, 2014 02:41 PM FORMER TOBACCO USER 7Y OR GREATE R [facility] Dec 23, 2010 02:12 PM LIFETIME NON-TOBACCO USER [facility] Dec 18, 2010 05:07 PM FORMER TOBACCO USER 7Y OR GREATE R [facility] May 26, 2006 02:20 PM FORMER TOBACCO USER 7Y OR GREATE R [facility] Advance Directives: All historical and current Section Date Range: From patient's date of to the date document was created. This section includes ALL of a patient's completed or amended [place] Advance and Rescinded Directives. The entries below indicate that a directive exists for the patient, but an actual copy is not included with this document. The data comes from all [place] facilities. Date Advance Directives Provider Source Jul 15, 2016 ADVANCE DIRECTIVE ARIEL TREVINO [facility] Jul 15, 2016 ADVANCE DIRECTIVE DISCUSSION MAUREEN TREVINO [facility] Mar 22, 2016 CLINICAL WARNING PRUDENCIO TYLER [facility] Feb 05, 2011 CLINICAL WARNING LIZETH GABRIEL [facility] Dec 17, 2010 CLINICAL WARNING QUE CAMERON [facility] Aug 26, 2003 ADVANCE DIRECTIVE ELGIN HOOPER [facility] Encounter Notes: All associated encounter notes This section contains the clinical notes associated to the Encounter. Date/Time Encounter Note(s) Provider Source Oct 24, 2023 09:24 PM INTERNAL MEDICINE NOTE: LOCAL TITLE: MEDICINE CLINIC NOTE STANDARD TITLE: INTERNAL MEDICINE NOTE DATE OF NOTE: OCT 24, 2023@21:24 ENTRY DATE: OCT 26, 2023@01:24:49 AUTHOR: NONA PAULINO EXP COSIGNER: URGENCY: STATUS: COMPLETED Chief Complaint: Preventive Health Maintenance Visit HPI: 88M presents to clinic today with his daughter for his preventive health maintenance visit. He is concerned about his blood sugars today. He reports that his vertigo and lightheadedness are improved significantly after stopping amiodarone. He does still feel a bit lightheaded after taking his antihypertensive medications in the morning. He continues to struggle with LUTS symptoms. He reports that his urology consultation was not helpful. He also reports ongoing neuropathy in his feet. Past medical history/Active Problems: Active Problems: Active problems - Computerized Problem List is the source for the followin. Hypertension (SNOMED CT 64379366) - 24 HR BP Monitor October 2020 - avg BP 124/68, avg HR 68 2. Simple obesity (SNOMED CT 058428973) 3. Gastroesophageal reflux disease (SNOMED CT 713094250) 4. IMPOTENCE, ORGANIC 5. Asthma (SNOMED CT 825124605) 6. ANEMIA NOS 7. HEMATURIA 8. Sleep apnea (SNOMED CT 00239655) 9. Empyema, Pleural * 10. Bigeminy 11. Bradycardia * 12. Cardiomyopathy (SNOMED CT 53197507) 13. Arrhythmia (SNOMED CT 128851245) 14. Cataract nos 15. Pseudophakia 16. Benign prostatic hyperplasia (SNOMED CT 255927368) 17. Dizziness and giddiness 18. Gomez's esophagus 19. Atrial fibrillation 20. COPD - Chronic obstructive pulmonary disease 21. Nocturia Physical Exam: VS: Temp: 97.9 F [36.6 C] (10/24/2023 14:33) BP: 128/68 (10/24/2023 14:33) Pulse:76 (10/24/2023 14:33) Resp: 16 (10/24/2023 14:33) Weight: 268.7 lb [121.88 kg] (10/24/2023 14:33) Pain: 0 (10/24/2023 14:33) O2 Sat: 93% (10/24/2023 14:33) BMI: 42.2 General NAD Chest/Lungs: Bilaterally clear Abdominal: Soft, Non-Tender, Non-Distended, Bowel Sounds Present Extremities: Comment: 1+ BLE edema. Feet: Pulses palpated in both feet. Lab Data: Last 48 hours: B 12: 316 FOLATE: 8.1 FERRITIN: 150.3 TIBC: 285 IRON: 83 IRON SATURATION: 29 TRANSFERRIN: 228 WBC: 7.64 RBC: 4.19 L HGB: 12.9 L HCT: 39.5 L MCV: 94.3 MCH: 30.8 MCHC: 32.7 RDW: 13.7 PLT: 213 MPV: 9.1 HGB A1C: 5.5 GLUCOSE: 86 UREA NITROGEN: 23 CREATININE: 1.0 SODIUM: 141 POTASSIUM: 4.7 CHLORIDE: 108 H CO2: 25 CALCIUM: 9.6 CHOLESTEROL: 150 MAGNESIUM: 2.0 HDL: 54 ANION GAP: 8 LDL CHOL: 84 VLDL CHOL: 12 NON HDL CHOLESTEROL: 96 TRIG(NON FASTING): 60 CREATININE EGFR (CKD-EPI): 73 Patient was informed of all the above labs during this visit. Assessment/Plan: Preventive Health Maintenance Visit # Symptomatic PVCs/cardiomyopathy. Followed by cardiology. There has been some consideration for trialing prostigmin. # Hypertension. Well controlled on losartan and amlodipine. Given mid-morning lightheadedness, asked patient to trial taking losartan at night. # GERD. Symptomatically controlled on famotidine. # COPD. Controlled on tiotropium and fluticasone/salmeterol. # BPH. On low dose finasteride and doxazosin. Still getting up multiple times nightly. No new recs from urology. Will increase finasteride to 5mg daily. # Constipation. Encouraged drinking 48 oz of water daily. Takes PEG daily as needed. # Anemia. Mild. Stable. # Chronic neuropathy. Stable. RTC one year. More than 50% of this 30 min appt was spent counseling/coordinating care for the medical problems outlined above. PAVE Foot Check: A complete foot check was completed at this encounter. VISUAL INSPECTION: Includes inspection for skin breaks, deformity, erythema, trauma, pallor on elevation, dependent rubor, nail deformities, extensive callus and pitting edema. Visual exam results: Abnormal Observations: Thickened toenails PEDAL PULSES: Includes palpation of dorsalis and posterior tibial pulses and signs/symptoms of vascular compromise like pain, pallor, parasthesia or paralysis. Present (even if diminished) SENSORY CHECK: Includes 10 gram Monofilament (Eaton-Corwin) test of sensation. Intact (Greater than or equal to 80% of sites checked) Abnormal (Less than 80% of sites checked): Abnormal (decreased or absent sensation to monofilament): Comment: decreased in forefeet slightly HIGH-RISK: HIGH RISK INFORMATION PROVIDED: 1. Advised patient that extra depth footwear with soft molded inserts and braces may be required. 2. Advised patient not to walk barefoot. 3. Explained the importance of daily foot checks. 4. Stressed the importance of daily foot hygiene, including bathing, complete drying and thorough inspection for changes. The patient verbalized understanding and was offered a detailed handout on diabetic foot care. Patient is established patient of Podiatry and/or Vascular: Last scheduled appointment: [Place data object here] /vincenzo/ NONA PAULINO MD Staff Physician Signed: 10/26/2023 14:19 RA [facility] Oct 24, 2023 04:01 PM ADMINISTRATIVE NOTE: LOCAL TITLE: AFTER VISIT SUMMARY NOTE STANDARD TITLE: ADMINISTRATIVE NOTE DICT DATE: OCT 24, 2023@16:01:26 ENTRY DATE: OCT 24, 2023@16:01:26 DICTATED BY: NONA PAULINO EXP COSIGNER: URGENCY: STATUS: COMPLETED The patient was provided with a copy of an after-visit summary at the conclusion of the visit. A copy of the after-visit summary provided to the patient is available in [employer]. SCANNED DOCUMENT SIGNATURE NOT REQUIRED Electronically Filed: 10/24/2023 by: NONA PAULINO MD Staff Physician NONA PAULINO [facility] Oct 24, 2023 02:20 PM INTERNAL MEDICINE OUTPATIENT NOTE: LOCAL TITLE: MEDICINE CLINIC NURSING NOTE STANDARD TITLE: INTERNAL MEDICINE OUTPATIENT NOTE DATE OF NOTE: OCT 24, 2023@14:20 ENTRY DATE: OCT 24, 2023@14:20:58 AUTHOR: EMERSON MURILLO EXP COSIGNER: URGENCY: STATUS: COMPLETED TYPE OF VISIT: Appointment Check In Type of appointment: In-person appointment REASON FOR VISIT: annual check up ALLERGIES: BRAZIL NUTS (Jun 12, 2006) ANIMALS (Dec 17, 2010) Vital Signs: Blood Pressure: 128/68 (10/24/2023 14:33) Height: 67 in [170.2 cm] (05/17/2023 14:11) Weight: 268.7 lb [121.88 kg] (10/24/2023 14:33) Heart Rate: 76 (10/24/2023 14:33) Respiration: 16 (10/24/2023 14:33) Temp: 97.9 F [36.6 C] (10/24/2023 14:33) Pain: 0 (10/24/2023 14:33) PAIN SCREEN: Patient is not having significant pain that they wish to discuss with their provider today. MEDICATION Over the Counter/Herbal Medications: The patient denies taking any outside medications or herbals. Nursing Annual Screening: Fall History Screen During the past 12 months, have you had any falls? Patient does not report any falls in the past 12 months. MEDICATIONS: Patient is on one of the following medication classes: Antihypertensives, Antidepressants, Antipsychotics, Diuretics, or Controlled substance medication used for pain. Script Talk Screen Are you able to read your prescription bottles with your glasses, magnifiers or other aids? Yes or patient not taking any prescriptions. Skin Screen Patient reports any current pressure ulcers, a history of pressure ulcers, or a wound from a medical education specialist or Patient is bed-confined or a wheelchair-user or Patient requires assistance to transfer/change position No, Skin Screen is Negative Home Abuse/Violence Screen Is your home free of abuse and violence? Yes MOVE! Program Screen Body Mass Index (BMI)= 42.4 [place]: Collection DT Specimen Test Name Result Units Ref Range 10/24/2023 13:17 BLOOD !! HEMOGLOBIN A1C 5.5 % 4.0 - 6.0 !! Indicates COMMENTS AVAILABLE...Refer to Interim Lab Report. [place] Hgb A1C: No data available [facility] Hgb A1C: No data available Point of Care Hgb A1C: POC HGB A1C____ Outpatient Nutrition Screen Body Mass Index (BMI)= 42.4 [place]: Collection DT Specimen Test Name Result Units Ref Range 10/24/2023 13:17 BLOOD !! HEMOGLOBIN A1C 5.5 % 4.0 - 6.0 !! Indicates COMMENTS AVAILABLE...Refer to Interim Lab Report. [facility] Hgb A1C: No data available [facility] Hgb A1C: No data available Point of Care Hgb A1C: POC HGB A1C____ Is patient's BMI less than 18.5? No Does patient have swallowing, coughing, or chewing problems affecting oral intake? No Has patient experienced unplanned weight loss or gain greater than 10 pounds over the last 2 months? No Is patient's Hgb A1C (Glycosylated Hemoglobin) greater than 9.5? No Is patient receiving Total Parenteral Nutrition (TPN) or Tube Feedings? No Patient Health Education Screen BARRIERS/SPECIAL NEEDS: No barriers identified PREFERRED STYLE OF LEARNING: Watching something Listening Reading Client Assistive Service (KALA) Screen Does the patient require assistance with outpatient visit? No Tobacco Use Screening: The patient is a former tobacco user. The patient quit fifteen or more years ago. Homelessness/Food Insecurity Screen: In the past 2 months, have you been living in stable housing that you own, rent, or stay in as part of a household? Yes - Living in stable housing. Are you worried or concerned that in the next 2 months you may NOT have stable housing that you own, rent, or stay in as part of a household? No - Not worried about housing near future [facility] reports the following: Within the past 12 months, you worried whether your food would run out before you got money to buy more. Never true Within the past 12 months, the food you bought just didn't last and you didn't have money to get more. Never true Food Assistance Programs [facility] Food Assistance Programs [facility] Entry of Outside Tests/Reports: COVID-19 Immunization: Refused Pfizer Monovalent COVID-19 vaccine Immunization: COVID-19 (PFIZER), MRNA, LNP-S, PF, STORM-SUCROSE, 30 MCG/0.3 ML (AGES 12+ YEARS) Refusal Reason: PATIENT DECISION Patient refuses all immunization(s) in the COVID-19 group Date Documented: 10/24/23 14:32 Influenza Immunization: No influenza vaccination was received during the recent influenza season. Td / Tdap Immunization: The patient declines to receive the recommended dose of Td/Tdap vaccine. Immunization: TD(ADULT) UNSPECIFIED FORMULATION Refusal Reason: PATIENT DECISION Patient refuses all immunization(s) in the Td group Date Documented: 10/24/23 14:34 /vincenzo/ EMERSON MURILLO LPN Signed: 10/24/2023 14:35 EMERSON MURILLO [facility]
--- OUTSIDE RECORDS SUMMARY | 2023-10-26 17:18 | XMS_ITS | Encounter Summary ---
Author Name [facility] Organization [facility] Address [address] [place] [address] Care Team Providers Care Senior Integration Architect Name Role Phone JEFFERSONNONA Primary Care Provider Unavaila [facility] Insurance Providers: All historical and [...] Name Patient's Relationship to Policy Mandel [facility] (WNR) MEDICARE [facility] (WNR) May 02, 2016 [id number] [phone] Duarte PANDYA PATIENT [facility] (WNR) MEDICARE [facility] (WNR) May 02, 2016 [id number] [phone] Duarte PANDYA PATIENT Selected Encounter This section includes the information on record at [place] for the Encounter. Date/Time Encounter Type Encounter Description Reason Provider Source Oct 25, 2023 03:05 PM Outpatient Encounter TELEPHONE TRIAGE SHAYLEE LOPEZ Encounter Template Text not used by [place] Plan of Treatment: Future Appointments (+ 6 months) and Future Tests (+/- 45 days) The Plan of Treatment section includes future care activities for the patient from [facility] [place] [facility] This section includes future appointments and future orders which are active, pending or scheduled. Future Appointments This section includes appointments that were scheduled to occur 6 months from the date of the Encounter, up to a maximum of 20 appointments. The data comes from all [facility]. Appointment Date/Time Appointment Type Appointme nt Facility Name Nov 02, 2023 01:30 PM AMBULATORY - SURGERY [facility] Nov 08, 2023 05:30 PM AMBULATORY - [facility] Dec 26, 2023 11:00 AM AMBULATORY - [facility] Jan 11, 2024 01:20 PM AMBULATORY - SURGERY [facility] Jan 31, 2024 12:00 PM AMBULATORY [...] of theEncounter. The data comes from all [facility]. Test Date/Time Test Type Test Details Facility Name Oct 24, 2023 03:59 PM Consult Order OT OCCUPAT IONAL THERAPY OUTPT EQUIPMENT Cons Envelope Patternmaker's Choice [facility] Lab Results: +/- 30 days of [...] Range Comment Oct 24, 2023 01:17 PM [facility] HEMOGLOBIN A1C Specimen Type: BLOOD Comment: [...] Jul 28, 2023 11:33 PM Reporting Lab: [facility] [id number] Performing Lab: [facility] [id number] HEMOGLOBIN A1C 5.5 4.0-6.0 Oct 24, 2023 01:17 PM [facility] B 12 Specimen Type: SERUM No comment entered. Ordering Provider: LES PAULINO Report Released Date/Time: Jul 28, 2023 11:33 PM Reporting Lab: [facility] [id number] Performing Lab: [facility] [id number] B 12 316 pg/mL 213-816 Oct 24, 2023 01:17 PM [facility] FOLATE Specimen Type: SERUM No comment entered. Ordering Provider: LES PAULINO Report Released Date/Time: Jul 28, 2023 11:33 PM Reporting Lab: [facility] [id number] Performing Lab: [facility] [id number] FOLATE 8.1 ng/mL >7.0 Oct 24, 2023 01:17 PM [facility] LIPID PANEL,NON-FASTING Specimen Type: PLASMA No comment entered. Ordering Provider: LES PAULINO Report Released Date/Time: Jul 28, 2023 11:33 PM Reporting Lab: [facility] [id number] Performing Lab: [facility] [id number] CHOLESTEROL 150 mg/dL <199 .HDL 54 mg/dL >40 LDL CALCULATION 84 mg/dL <99 VLDL CALCULATION 12 mg/dL <29 NON HDL CHOLESTEROL 96 mg/dL <129 TRIG(NON FASTING) 60 mg/dL <149 Oct 24, 2023 01:17 PM [facility] BASIC METABOLIC PANEL+MG Specimen Type: PLASMA No comment entered. Ordering Provider: LES PAULINO Report Released Date/Time: Jul 28, 2023 11:33 PM Reporting Lab: [facility] [phone] Performing Lab: [facility] [phone] CREATININE 1.0 mg/dL 0.7-1.2 UREA NITROGEN 23 mg/dL 8-26 GLUCOSE 86 mg/dL 70-100 SODIUM 141 mmol/L 136-145 POTASSIUM 4.7 mmol/L 3.5-5.1 CHLORIDE 108 mmol/L H 98-107 CO2 25 mmol/L 22-29 CALCIUM 9.6 mg/dL 8.4-10.2 MAGNESIUM 2.0 mg/dL 1.6-2.6 ANION GAP 8 mmol/L 5-15 .CREAT EGFR(CKD-EPI) 73 >60 Oct 24, 2023 01:17 PM [facility] CBC Specimen Type: BLOOD No comment entered. Ordering Provider: LES PAULINO Report Released Date/Time: Jul 28, 2023 11:33 PM Reporting Lab: [facility] [phone] Performing Lab: [facility] [id number] WBC 7.64 10*3/uL 4.0-11.0 RBC 4.19 10*6/uL L 4.6-6.2 HGB 12.9 g/dL L 13.5-17.9 HCT 39.5 L 41-54 MCV 94.3 fL 80-100 MCH 30.8 pg 27-33 MCHC 32.7 g/dL 32.0-37.5 PLT 213 10*3/uL 150-400 MPV 9.1 fL 7.4-10.4 RDW 13.7 11.5-14.5 Oct 24, 2023 01:17 PM [facility] IRON GROUP Specimen Type: SERUM No comment entered. Ordering Provider: LES PAULINO UL Report Released Date/Time: Jul 28, 2023 11:33 PM Reporting Lab: [facility] [phone] Performing Lab: [facility] [phone] IRON 83 ug/dL 65-175 TIBC,CALCULAT ED 285 ug/dL 250-425 FERRITIN 150.3 ng/mL 21.8-274.7 IRON SATURATION 29 20-50 TRANSFERRIN 228 mg/dL 163-382 Social History: Smoking Status (Most current) and [...] place. Date/Time Current Smoking Status Comment Nette yousif Oct 24, 2023 02:30 PM VA-TOBACCO QUIT 15 YRS OR MORE [facility] Tobacco Use History This section includes a history of the smoking, or tobacco-related health factors, that were collected on or before the date of the Encounter. The data comes from the [place] facility where the Encounter took place. Date/Time Smoking Status/Tobacco Use Comment F acility Oct 24, 2023 02:30 PM VA-TOBACCO QUIT 15 YRS OR MORE [facility] Jan 17, 2023 01:00 PM VA-TOBACCO FORMER USER [facility] Jan 17, 2023 01:00 PM VA-TOBACCO QUIT 15 YRS OR MORE [facility] Feb 01, 2022 01:00 PM VA-TOBACCO FORMER USER [facility] Feb 01, 2022 01:00 PM VA-TOBACCO QUIT 15 YRS OR MORE [facility] Feb 02, 2021 01:00 PM VA-TOBACCO FORMER USER [facility] Feb 02, 2021 01:00 PM VA-TOBACCO QUIT 15 YRS OR MORE [facility] Dec 12, 2019 01:25 PM VA-TOBACCO FORMER USER [facility] Dec 12, 2019 01:25 PM VA-TOBACCO QUIT 15 YRS OR MORE [facility] Jun 21, 2018 11:16 AM VA-TOBACCO FORMER USER [facility] Jun 21, 2018 11:16 AM VA-TOBACCO QUIT 15 YRS OR MORE [facility] September 15, 2017 05:29 AM INPT NO TOBACCO USE IN LAST 30 D [facility] Jun 29, 2017 02:21 PM FORMER TOBACCO USER 7Y OR GREATE R [facility] September 16, 2016 05:29 AM INPT NO TOBACCO USE IN LAST 30 D [facility] May 06, 2016 10:21 AM FORMER TOBACCO USER 7Y OR GREATE R [facility] Mar 24, 2016 11:54 AM INPT NO TOBACCO USE IN LAST 30 D [facility] Jun 23, 2015 10:20 AM FORMER TOBACCO USER 7Y OR GREATE R [facility] Jul 04, 2014 02:41 PM FORMER TOBACCO USER 7Y OR GREATE R [facility] Dec 23, 2010 02:12 PM LIFETIME NON-TOBACCO USER [facility] Dec 18, 2010 05:07 PM FORMER TOBACCO USER 7Y OR GREATE R [facility] May 26, 2006 02:20 PM FORMER TOBACCO USER 7Y OR GREATE R [facility] Advance Directives: All historical and current Section Date Range: From patient's date of to the date document was created. This section includes ALL of a patient's completed or amended [place] Advance and Rescinded Directives. The entries below indicate that a directive exists for the patient, but an actual copy is not included with this document. The data comes from all [place] facilities. Date Advance Directives Provider Source Jul 15, 2016 ADVANCE DIRECTIVE ARIEL TREVINO Brook [facility] Jul 15, 2016 ADVANCE DIRECTIVE DISCUSSION MAUREEN TREVINO Borok [facility] Mar 22, 2016 CLINICAL WARNING HELEN TYLERDURGA Brook [facility] Feb 05, 2011 CLINICAL WARNING LIZETH GABRIEL [facility] Dec 17, 2010 CLINICAL WARNING QUE CAMERON [facility] Aug 26, 2003 ADVANCE DIRECTIVE ELGIN HOOPER [facility] Encounter Notes: All associated encounter notes This section contains the clinical notes associated to the Encounter. Date/Time Encounter Note(s) Provider Source Oct 26, 2023 11:46 AM ADDENDUM: LOCAL TITLE: Addendum STANDARD TITLE: ADDENDUM DATE OF NOTE: OCT 26, 2023@11:46:41 ENTRY DATE: OCT 26, 2023@11:46:43 AUTHOR: TATIANNA CONNELLY COSIGNER: URGENCY: STATUS: COMPLETED [place] Can you please assist in scheduling an earlier appointment, if available. Thank you. /vincenzo/ TATIANNA CONNELLY RN, WTA-C, [facility] REGISTERED NURSE Signed: 10/26/2023 11:49 Receipt Acknowledged By: 10/26/2023 14:52 /nichole MAY AMSA --- Original Document --- 10/25/23 CCC: CLINICAL TRIAGE: Patient Demographics Patient Name: NANDA PANDYA Patient Primary Address: [address] [place] [address] Patient Primary Phone: [phone] Patient : 1935 Patient Age: 88 Call Back Number: [phone] Caller/Recipient Relation to Patient: Self Emergency Contact: MARTA PEPPER Triage Summary Conducted triage/discussed symptoms Pain Score: 8 (Severe Pain) Utilized the Triage Tool: Yes Chief Complaint: Toe Pain System WHEN: Now Nurse's Recommendation / WHEN: Within 2 Weeks System WHERE: Emergency department Nurse's Recommendation / WHERE: [facility] WHEN/WHERE modifier reason: Other Other - Modifiers: symptom duration Patient Disposition Patient/Caregiver agrees to plan of care: Yes Patient WHERE: [facility] Patient WHEN: Within 2 weeks Nursing Plan and Disposition Referred Patient for In-Person Appt Other Other Description: Defer to podiatry Other course(s) of action Generated msg to PACT/Provider Nurse Summary Nurse Summary: PATIENT CONCERN/DURATION/ONSET: calling stating he saw his PCP yesterday for his annual exam. He states he asked his PCP about his right fifth toe pain from his ''bunion'' and was encouraged to contact podiatry to see if he could be seen sooner than his pending appointment 12-21-23. Collyer endorsing right fifth toe pain, redness and swelling for the last year with pain to 8-9/10. Constant throbbing ache. 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 Collyer also asking for assistance speaking with the sleep clinic, states he has questions about his CPAP and has left several messages already without a response. Weatherization Installer attempted to reach sleep clinic/CPAP supplies unsuccessfully, message left on their VM requesting call back to Collyer. Was Virtual Care Visit considered (TELE or VVC) n/a ENGINEER FIRST ASSISTANT DISPOSITION: Recommended triage is contact with podiatry clinic > 24 hours secondary to established patient with pending appointment who has been assessed by his PCP. Will alert podiatry clinic. Best contact for Collyer is (Verified)[phone]. This note was created by a 3 [facility] RN. Please do not alert this nurse by adding as a signer for future communications. Alerts are not monitored by this user, please reach out to [facility] Leadership instead if indicated. Clinical Contact Center Codes Clinic/Location: [address] PHONE CCC RN TXCC Triage Complete Triage Date: 10/25/2023, 02:47 PM Triage Note: Phone Triage 25 Oct 2023 19:41:00 +0000 [facility] Demographics 88 y/o Male Results CC: Toe Pain Software suggested: Now Software suggested follow-up location: Emergency department Values and Measures Duration of CC: 1 Years Positive Responses HPI: skin erythema, foot or toe, worsening HPI: skin swelling, foot or toes, worsening HPI: toe pain, severe VS: temperature not taken Negative Responses Denies: HPI: red streaks, from a spot on the foot or toes Denies: HPI: skin lump, swollen, painful, over the foot or toes Denies: HPI: toe injury, within past 2 days Denies: HPI: toe pain, in only one toe Denies: HPI: toe pain, localized to toenail or periungual skin /vincenzo/ SHAYLEE LOPEZ RN [facility] [employer] [employer]ISN 23 DAYTIME MOTOR VEHICLE EMISSIONS INSPECTOR Signed: 10/25/2023 15:05 Receipt Acknowledged By: 10/26/2023 11:46 /vincenzo/ TATIANNA CONNELLY RN, WTA-C, [facility] REGISTERED NURSE TATIANNA CONNELLY [facility] Oct 25, 2023 03:05 PM RN PROGRESS NOTE: LOCAL TITLE: CCC: CLINICAL TRIAGE STANDARD TITLE: RN PROGRESS NOTE DATE OF NOTE: OCT 25, 2023@15:05:28 ENTRY DATE: OCT 25, 2023@15:05:28 AUTHOR: JOHN,SHAYLEE M EXP COSIGNER: URGENCY: STATUS: COMPLETED CCC: CLINICAL TRIAGE Has ADDENDA Patient Demographics Patient Name: NANDA PANDYA Patient Primary Address: [address] [place] [address] Patient Primary Phone: [phone] Patient : 1935 Patient Age: 88 Call Back Number: [phone] Caller/Recipient Relation to Patient: Self Emergency Contact: MARTA PEPPER Triage Summary Conducted triage/discussed symptoms Pain Score: 8 (Severe Pain) Utilized the Triage Tool: Yes Chief Complaint: Toe Pain System WHEN: Now Nurse's Recommendation / WHEN: Within 2 Weeks System WHERE: Emergency department Nurse's Recommendation / WHERE: Clinic/[facility] WHEN/WHERE modifier reason: Other Other - Modifiers: symptom duration Patient Disposition Patient/Caregiver agrees to plan of care: Yes Patient WHERE: Clinic/[facility] Patient WHEN: Within 2 weeks Nursing Plan and Disposition Referred Patient for In-Person Appt Other Other Description: Defer to podiatry Other course(s) of action Generated msg to PACT/Provider Nurse Summary Nurse Summary: PATIENT CONCERN/DURATION/ONSET: Collyer calling stating he saw his PCP yesterday for his annual exam. He states he asked his PCP about his right fifth toe pain from his ''bunion'' and was encouraged to contact podiatry to see if he could be seen sooner than his pending appointment 12-21-23. Collyer endorsing right fifth toe pain, redness and swelling for the last year with pain to 8-9/10. Constant throbbing ache. 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 Collyer also asking for assistance speaking with the sleep clinic, states he has questions about his CPAP and has left several messages already without a response. Weatherization Installer attempted to reach sleep clinic/CPAP supplies unsuccessfully, message left on their VM requesting call back to Collyer. Was Virtual Care Visit considered (TELE or VVC) n/a ENGINEER FIRST ASSISTANT DISPOSITION: Recommended triage is contact with podiatry clinic > 24 hours secondary to established patient with pending appointment who has been assessed by his PCP. Will alert podiatry clinic. Best contact for Collyer is (Verified)[phone]. This note was created by a 3 [facility] Connect RN. Please do not alert this nurse by adding as a signer for future communications. Alerts are not monitored by this user, please reach out to [facility] Leadership instead if indicated. Clinical Contact Center Codes Clinic/Location: [facility] PHONE CCC RN TXCC Triage Complete Triage Date: 10/25/2023, 02:47 PM Triage Note: Phone Triage 25 Oct 2023 19:41:00 +0000 [facility] Demographics 88 y/o Male Results CC: Toe Pain Software suggested: Now Software suggested follow-up location: Emergency department Values and Measures Duration of CC: 1 Years Positive Responses HPI: skin erythema, foot or toe, worsening HPI: skin swelling, foot or toes, worsening HPI: toe pain, severe VS: temperature not taken Negative Responses Denies: HPI: red streaks, from a spot on the foot or toes Denies: HPI: skin lump, swollen, painful, over the foot or toes Denies: HPI: toe injury, within past 2 days Denies: HPI: toe pain, in only one toe Denies: HPI: toe pain, localized to toenail or periungual skin /es/ SHAYLEE RIVERA BECCA VISN 23 DAYTIME MOTOR VEHICLE EMISSIONS INSPECTOR Signed: 10/25/2023 15:05 Receipt Acknowledged By: 10/26/2023 11:46 /es/ TATIANNA CONNELLY RN, WTA-C, [facility] REGISTERED NURSE 10/26/2023 ADDENDUM STATUS: COMPLETED [place] Can you please assist in scheduling an earlier appointment, if available. Thank you. /vincenzo/ TATIANNA CONNELLY RN, MIRIAMA-C, [facility] REGISTERED NURSE Signed: 10/26/2023 11:49 Receipt Acknowledged By: * AWAITING SIGNATURE * SULEMA MAY BRENDA M [facility]
--- OUTSIDE RECORDS SUMMARY | 2023-10-26 17:18 | XMS_ITS | Encounter Summary ---
Author Name [facility] Organization Department of [facility] Address [address] [place] [address] Care Team Providers Care Recovery Analyst Name Role Phone JEFFERSONNONA Primary Care Provider Unavaila ble Insurance Providers: [...] Name Patient's Relationship to Policy Mandel [facility] (WNR) MEDICARE ADVANTAGE [facility] (WNR) May 02, 2016 [id number] [phone] Duarte PANDYA PATIENT [facility] (WNR) MEDICARE [facility] (WNR) May 02, 2016 [id number] [phone] Duarte PANDYA PATIENT Selected Encounter This section includes the information on record at [place] for the Encounter. Date/Time Encounter Type Encounter Description Reason Provider Source Oct 24, 2023 02:59 PM Outpatient Encounter TELEPHONE PRIMARY CARE ALISHA HOLMAN IHE Encounter Template Text not used by [place] Plan of Treatment: Future Appointments (+ 6 months) and Future Tests (+/- 45 days) The Plan of Treatment section includes future care activities for the patient from all [place] [facility]. This section includes future appointments and future orders which are active, pending or scheduled. Future Appointments This section includes appointments that were scheduled to occur 6 months from the date of the Encounter, up to a maximum of 20 appointments. The data comes from all [facility]. Appointment Date/Time Appointment Type Appointme nt Facility Name Nov 02, 2023 01:30 PM AMBULATORY - SURGERY [facility] Nov 08, 2023 05:30 PM AMBULATORY - REHAB MEDICIN E [facility] Dec 26, 2023 11:00 AM AMBULATORY - REHAB MEDICIN E [facility] Jan 11, 2024 01:20 PM AMBULATORY - SURGERY [facility] Jan 31, 2024 12:00 PM AMBUL[facility] - [facility] Active, Pending, and Scheduled Orders This section includes a listing of several types of active, pending, and scheduled orders, including clinic medications orders, diagnostic test orders, procedure orders and consult orders; where the start date of the order is 45 days before the date of the Encounter or 45 days after the date of theEncounter. The data comes from all [facility]. Test Date/Time Test Type Test Details Facility Name Oct 24, 2023 03:59 PM Consult Order OT OCCUPAT IONAL THERAPY OUTPT EQUIPMENT Cons Sales Operations Coordinator's Choice [facility] Lab Results: +/- 30 days [...] Range Comment Oct 24, 2023 01:17 PM [facility] HEMOGLOBIN A1C Specimen Type: BLOOD Comment: Values obtained from A1C measurements can vary. For typical A1C assays, a reported value of 7.0 could actually be between 6.7 and 7.3 if measured by a reference method. A reported value of 9.0 could actually be between 8.7 and 9.3. Ref: http://www.ngs p.org/CAPdata. asp Ordering Provider: LES PAULINO UL Report Released Date/Time: Jul 28, 2023 11:33 PM Reporting Lab: [facility] [id number] Performing Lab: [facility] [id number] HEMOGLOBIN A1C 5.5 4.0-6.0 Oct 24, 2023 01:17 PM [facility] B 12 Specimen Type: SERUM No comment entered. Ordering Provider: LES PAULINO Report Released Date/Time: Jul 28, 2023 11:33 PM Reporting Lab: [facility] [address] Performing Lab: [facility] [address] B 12 316 pg/mL 213-816 Oct 24, 2023 01:17 PM [facility] FOLATE Specimen Type: SERUM No comment entered. Ordering Provider: LES PAULINO Report Released Date/Time: Jul 28, 2023 11:33 PM Reporting Lab: [facility] [id number] Performing Lab: [facility] [address] FOLATE 8.1 ng/mL >7.0 Oct 24, 2023 01:17 PM [facility] LIPID PANEL,NON-FASTING Specimen Type: PLASMA No comment entered. Ordering Provider: LES PAULINO Report Released Date/Time: Jul 28, 2023 11:33 PM Reporting Lab: [facility] [address] Performing Lab: [facility] [address] CHOLESTEROL 150 mg/dL <199 .HDL 54 mg/dL >40 LDL CALCULATION 84 mg/dL <99 VLDL CALCULATION 12 mg/dL <29 NON HDL CHOLESTEROL 96 mg/dL <129 TRIG(NON FASTING) 60 mg/dL <149 Oct 24, 2023 01:17 PM [facility] BASIC METABOLIC PANEL+MG Specimen Type: PLASMA No comment entered. Ordering Provider: LES PAULINO Report Released Date/Time: Jul 28, 2023 11:33 PM Reporting Lab: [facility] [address] Performing Lab: [facility] [address] CREATININE 1.0 mg/dL 0.7-1.2 UREA NITROGEN 23 mg/dL 8-26 GLUCOSE 86 mg/dL 70-100 SODIUM 141 mmol/L 136-145 POTASSIUM 4.7 mmol/L 3.5-5.1 CHLORIDE 108 mmol/L H 98-107 CO2 25 mmol/L 22-29 CALCIUM 9.6 mg/dL 8.4-10.2 MAGNESIUM 2.0 mg/dL 1.6-2.6 ANION GAP 8 mmol/L 5-15 .CREAT EGFR(CKD-EPI) 73 >60 Oct 24, 2023 01:17 PM [facility] IRON GROUP Specimen Type: SERUM No comment entered. Ordering Provider: LES PAULINO Report Released Date/Time: Jul 28, 2023 11:33 PM Reporting Lab: [facility] [address] Performing Lab: [facility] [address] IRON 83 ug/dL 65-175 TIBC,CALCULAT ED 285 ug/dL 250-425 FERRITIN 150.3 ng/mL 21.8-274.7 IRON SATURATION 29 20-50 TRANSFERRIN 228 mg/dL 163-382 Oct 24, 2023 01:17 PM [facility] CBC Specimen Type: BLOOD No comment entered. Ordering Provider: LES PAULINO Report Released Date/Time: Jul 28, 2023 11:33 PM Reporting Lab: [facility] [address] Performing Lab: [facility] [address] WBC 7.64 10*3/uL 4.0-11.0 RBC 4.19 10*6/uL L 4.6-6.2 HGB 12.9 g/dL L 13.5-17.9 HCT 39.5 L 41-54 MCV 94.3 fL 80-100 MCH 30.8 pg 27-33 MCHC 32.7 g/dL 32.0-37.5 PLT 213 10*3/uL 150-400 MPV 9.1 fL 7.4-10.4 RDW 13.7 11.5-14.5 Vital Signs: All taken on the encounter date This section contains inpatient and outpatient Vital Signs collected on the date of the Encounter. Date/Time Temperature Pulse Blood Pressure Respiratory Rate SP02 Pain Height Weight Body Mass Index Source Oct 24, 2023 02:33 PM 97.9 76 128/68 16 93 0 268.7 42 [place] Social History: Smoking Status (Most current) and Tobacco Use (All prior to encounter date) This section includes the most current, and the historical, smoking and tobacco- related health factors from the [place] facility where the Encounter took place. Current Smoking Status This section includes the most current smoking, or tobacco-related health factor, from the [place] facility where the Encounter took place. Date/Time Current Smoking Status Comment Facil ity Oct 24, 2023 02:30 PM VA-TOBACCO FORMER USER [facility] Tobacco Use History This section includes a history of the smoking, or tobacco-related health factors, that were collected on or before the date of the Encounter. The data comes from the [place] facility where the Encounter took place. Date/Time Smoking Status/Tobacco Use Comment F acility Oct 24, 2023 02:30 PM VA-TOBACCO QUIT 15 YRS OR MORE [facility] Jan 17, 2023 01:00 PM VA-TOBACCO FORMER USER [facility] Jan 17, 2023 01:00 PM VA-TOBACCO QUIT 15 YRS OR MORE [facility] Feb 01, 2022 01:00 PM VA-TOBACCO FORMER USER [facility] Feb 01, 2022 01:00 PM VA-TOBACCO QUIT 15 YRS OR MORE [facility] Feb 02, 2021 01:00 PM VA-TOBACCO FORMER USER [facility] Feb 02, 2021 01:00 PM VA-TOBACCO QUIT 15 YRS OR MORE [facility] Dec 12, 2019 01:25 PM VA-TOBACCO FORMER USER [facility] Dec 12, 2019 01:25 PM VA-TOBACCO QUIT 15 YRS OR MORE [facility] Jun 21, 2018 11:16 AM VA-TOBACCO FORMER USER [facility] Jun 21, 2018 11:16 AM VA-TOBACCO QUIT 15 YRS OR MORE [facility] September 15, 2017 05:29 AM INPT NO TOBACCO USE IN LAST 30 D [facility] Jun 29, 2017 02:21 PM FORMER TOBACCO USER 7Y OR GREATE R [facility] September 16, 2016 05:29 AM INPT NO TOBACCO USE IN LAST 30 D [facility] May 06, 2016 10:21 AM FORMER TOBACCO USER 7Y OR GREATE R [facility] Mar 24, 2016 11:54 AM INPT NO TOBACCO USE IN LAST 30 D [facility] Jun 23, 2015 10:20 AM FORMER TOBACCO USER 7Y OR GREATE R [facility] Jul 04, 2014 02:41 PM FORMER TOBACCO USER 7Y OR GREATE R [facility] Dec 23, 2010 02:12 PM LIFETIME NON-TOBACCO USER [facility] Dec 18, 2010 05:07 PM FORMER TOBACCO USER 7Y OR GREATE R [facility] May 26, 2006 02:20 PM FORMER TOBACCO USER 7Y OR GREATE R [facility] Advance Directives: All historical and current Section Date Range: From patient's date of to the date document was created. This section includes ALL of a patient's completed or amended [place] Advance and Rescinded Directives. The entries below indicate that a directive exists for the patient, but an actual copy is not included with this document. The data comes from all [place] facilities. Date Advance Directives Provider Source Jul 15, 2016 ADVANCE DIRECTIVE DISCUSSION MAUREEN TREVINO [place] [facility] Jul 15, 2016 ADVANCE DIRECTIVE ARIEL TREVINO [facility] Mar 22, 2016 CLINICAL WARNING CRISTIANOSHELLIPRUDENCIO FENTON [place] [facility] Feb 05, 2011 CLINICAL WARNING HARVEYLIZETH GUSTAFSON [facility] Dec 17, 2010 CLINICAL WARNING QUE CAMERON [facility] Aug 26, 2003 ADVANCE DIRECTIVE ELGIN HOOPER [facility] Encounter Notes: All associated encounter notes This section contains the clinical notes associated to the Encounter. Date/Time Encounter Note(s) Provider Source Oct 24, 2023 02:59 PM SOCIAL WORK RISK ASSESSMENT SCREENING NOTE: LOCAL TITLE: SOCIAL WORK TRIAGE ASSESSMENT STANDARD TITLE: SOCIAL WORK RISK ASSESSMENT SCREENING NOTE DATE OF NOTE: OCT 24, 2023@14:59 ENTRY DATE: OCT 24, 2023@14:59:48 AUTHOR: MANNY HOLMAN COSIGNER: URGENCY: STATUS: COMPLETED SOCIAL WORK TRIAGE ASSESSMENT Referral source: Family Presenting issues: Need for in-home support services Brief summary: PCSW received call from 's dtr Sandrita asking about in-home services. Social Work Interventions and Plan: Returned call to Sandrita ([phone]). Sandrita states lives with her but in his own apartment. She asks if he qualifies for any in-home services through [place]. Discussed skilled and unskilled home care. Sandrita states they are primarily seeking assistance with cleaning and meals- states has no ADL dependencies. Discussed [facility] does not provide stand-alone homemaking services. Sandrita states she is mostly concerned about nutrition as is not a cook. Sandrita asks about [employer] Whe[employer]. Discussed [facility] and [employer] partnership. Encouraged Sandrita to contact [employer] regarding process for meals for veterans. Also provided phone number to [facility]. Sandrita has no further questions today. /vincenzo/ MANNY Potts. SAM HOLMAN, LABOR CUSTODIAN EVENT MGR Signed: 10/24/2023 15:03 MANNY HOLMAN [facility]
--- OUTSIDE RECORDS SUMMARY | 2023-10-26 17:19 | XMS_ITS | Data Portability ---
Author Organization [place] - [facility], [employer] Address [address] [place] [address] Assessment Encounter Date Assessment Date Assessment LastModified by Organization Details LastModified Time 09/23/2022 09/23/2022 Discussed clinical findings with the patient today. We did discuss both conservative and surgical treatment options including pros/cons and risks of each. We did discuss proper shoe/gear and insoles/orthoti cs with the patient. Not available 09/23/2022 14:32:33 11/17/2022 11/17/2022 Discussed clinical findings with the patient today. We did discuss both conservative and surgical treatment options including pros/cons and risks of each. We did discuss proper shoe/gear and insoles/orthoti cs with the patient. Not available 11/17/2022 19:16:41 12/22/2022 12/22/2022 Discussed clinical findings with the patient today. We did discuss both conservative and surgical treatment options including pros/cons and risks of each. We did discuss proper shoe/gear and insoles/orthoti cs with the patient. Not available 12/22/2022 16:15:06 02/23/2023 02/23/2023 Discussed clinical findings with the patient today. We did discuss both conservative and surgical treatment options including pros/cons and risks of each. We did discuss proper shoe/gear and insoles/orthoti cs with the patient. [email or web address] Not available 02/23/2023 03:18:15 04/06/2023 04/06/2023 Discussed clinical findings with the patient today. We did discuss both conservative and surgical treatment options including pros/cons and risks of each. We did discuss proper shoe/gear and insoles/orthoti cs with the patient. Not available 04/06/2023 14:23:38 Plan of Treatment Reminders Order Date Submit Date Provider Last Modified By Organization Details Last Modified Time Details Appointments None record ed. Lab None record ed. Referral None record ed. Procedures None record ed. Surgeries None record ed. Imaging None record ed. Medication Orders None record ed. Patient TargetsNo targets recorded. Patient InstructionsNo instructions recorded. Reason for Referral None Reported. Problems Name Status Onset Date Resolution Date Notes Provider Name and Address Organization Details Recorded Time Idiopathic peripheral neuropathy Active 2021 ARABELLA Cr - [facility] 2 21:30:32 Osteoarthritis Active 2021 GaelARABELLA Bedolla - [facility] 2 21:30:42 Onychomycosis of toenails Active 2021 Onychomycosis of toenails; Original Code: 8843115868 Sunny ginal Codesystem: SNOMED CT Classificat ion: Medical Confir mation Status: Confirmed Not Available [facility] 3 09:06:31 Foot pain Active 2021 Foot pain; Original Code: 407157436 Orig inal Codesystem: SNOMED CT Classificat ion: Medical Confir mation Status: Confirmed Not Available [facility] 3 09:06:31 Idiopathic peripheral autonomic neuropathy Active 2021 Idiopathic peripheral autonomic neuropathy; Original Code: 174374571 Orig inal Codesystem: SNOMED CT Classificat ion: Medical Confir mation Status: Confirmed Not Available [facility] 3 09:06:31 Chronic ulcer of foot Active 2021 Chronic ulcer of foot; Original Code: 3241263055 Sunny ginal Codesystem: SNOMED CT Classificat ion: Medical Confir mation Status: Confirmed Not Available [facility] 3 09:06:31 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 Procedures Surgical History Date Name Laterality Status Provider Name and Address Organization Details Recorded Time 04/06/[address] Alva Valverde, JUAN [address] [place], [address], [facility] 04/06/2023 14:23:44 02/24/20 Routine Foot Care completed Kendra day, [facility] 02/23/2023 03:18:15 02/24/[address] Calle completed Kendra day, [facility] 02/23/2023 03:18:15 12/23/19 23 Routine Foot Care completed Landon Valverde, JUAN [address] [place], [address], [facility] 12/22/2022 16:15:18 12/23/[address] [place] completed Landon Valverde, JUAN [address] [place], [address], [facility] 12/22/2022 16:15:18 11/18/19 23 Routine Foot Care completed Landon Valverde, JUNA [address] [place], [address], [facility] 11/17/2022 19:16:24 11/18/[address] [place] completed Landon Valverde, JUAN [address] [place], [address], [facility] 11/17/2022 19:15:52 09/24/[address] [place] completed Geal day, [facility] 09/23/2022 14:32:33 07/23/[address] [place] completed Gael day, [facility] 07/22/2022 14:49:51 05/24/[address] [place] completed Gael day, [facility] 05/24/2022 12:19:06 04/01/[address] [place]le completed Gael day, [facility] 03/31/2022 21:31:03 Imaging Results None recorded. Procedure Notes None recorded. Medical Equipment None Reported. Allergies No known drug allergies Vitals None Recorded Social History Question Answer Notes LastModified by Organizat ion Details LastModified Time What Is Your Level Of Alcohol Consumption? Occasional Information not available 03/31/2022 Have You Ever Been Counseled For Unhealthy Alcohol Use? No Information not available 03/31/2022 Do You Or Have You Ever Used Any Other Forms Of Tobacco Or Nicotine? No Information not available 03/31/2022 Sex: Unknown Functional Status None recorded. Mental Status None recorded. Family History Nothing Reported. Medical History No medical history recorded. Past Encounters Encounter ID Performer Location Encounter Start Date Encounter Closed Date Diagnosis/Indication Diagnosis SNOMED-CT Code [id number] [facility] [address] [place] [id number] 04/01/2022 16:43:44 04/05/2022 10:13:50 Onychomycosis 416904580 Pain in right foot 00004 737056788 7 Pain in left foot 726329 09596101 7 Tailor's b union of right foot 25063193043889 09 Ulcer of foot 37236986 [id number] [facility] [address] [place] [id number] 05/24/2022 11:51:50 05/24/2022 13:01:26 Onychomycosis 008413942 Pain in right foot 59049 845155672 7 Pain in left foot 440777 47810620 7 Tailor's b union of right foot 11957956909085 09 Ulcer of foot 76702099 [id number] [facility] [address] [place] [id number] 07/22/2022 14:31:47 07/23/2022 09:39:29 Onychomycosis 013599202 Pain in right foot 43266 280471412 7 Pain in left foot 302505 69725473 7 Tailor's b union of right foot 99861832777033 09 Ulcer of foot 38758536 Subungual abscess 340911 003 [id number] [facility] [address] [place] [id number] 09/23/2022 14:04:54 09/28/2022 10:25:44 Onychomycosis 375473901 Pain in right foot 45588 201725617 7 Pain in left foot 322380 23260456 7 Tailor's b union of right foot 35322054687277 09 Subungual abscess 395820 003 Foot callus 069945713 [id number] [employer] [employer] [facility] [address] [place] [id number] 11/17/2022 15:46:29 11/18/2022 09:40:02 Onychomycosis 158905212 Pain in right foot 07286 265196632 7 Pain in left foot 502926 88854192 7 Tailor's b union of right foot 70065863539901 09 Foot callus 960383019 Venous sta sis edema of bilateral lower limbs 48433245767162 106 [id number] [facility] [address] [place] [id number] 12/22/2022 14:36:07 12/23/2022 10:03:24 Onychomycosis 019992603 Pain in right foot 44630 543205440 7 Pain in left foot 632985 24624576 7 Tailor's b union of right foot 58824498535121 09 Foot callus 003842768 Venous sta sis edema of bilateral lower limbs 75219071174357 106 [id number] [facility] [address] [place] [id number] 02/23/2023 14:15:03 02/24/2023 10:48:10 Onychomycosis 450733529 Pain in right foot 25258 450713437 7 Pain in left foot 287992 51881274 7 Tailor's b union of right foot 18317785031328 09 Foot callus 523353791 Venous sta sis edema of bilateral lower limbs 74127822817126 106 [id number] [facility] [address] [place] [id number] 04/06/2023 14:04:19 04/06/2023 17:57:16 Onychomycosis 125244186 Pain in right foot 10215 448917432 7 Pain in left foot 021506 71406587 7 Tailor's b union of right foot 21220773929488 09 Foot callus 283179655 Venous sta sis edema of bilateral lower limbs 71633643299031 106 Health Concerns Section Related Observation LastModified by Organization Detai ls LastModified Time None Recorded Concern Status LastModified by Organization Details LastModified Time None Recorded Advance Directives Directive None Recorded Payers Encounter Date Sequence Insurance Name Policy Number Policy Mandel Covered Member ID Mandel Member ID Guarantor Name 09/23/2022 [facility] Daniel Warner [id number] Daniel Warner 11/17/2022 [facility] Daniel Warner [id number] Daniel Warner 12/22/2022 [facility] Daniel Warner [id number] Daniel Warner 02/23/2023 [facility] Daniel Warner [id number] Daniel Warner 04/06/2023 [facility] Daniel Warner [id number] Daniel Warner Notes Date Note Type Note Provider Name and Address Organization Details Recorded Time 09/23/2022 text/html HPI Notes: This established patient ptc for evaluation and treatment of painful, thick toenails b/l they are unable to trim. They are painful in shoes and with pressure. The sore to his lateral right foot is just starting to bother again. Denies any drainage, slight swelling. Gael day [place] - [facility] 10/05/2022 16:13:53 11/17/2022 text/html HPI Notes: This established patient ptc for evaluation and treatment of painful, thick toenails b/l they are unable to trim. They are painful in shoes and with pressure. The sore to his lateral right foot is just starting to bother again. Denies any drainage, slight swelling. Landon Valverde, JUAN [address] [place], [address], [facility] - [facility] 11/17/2022 19:16:57 12/22/2022 text/html HPI Notes: This established patient ptc for evaluation and treatment of painful, thick toenails b/l they are unable to trim. They are painful in shoes and with pressure. The sore to his lateral right foot is just starting to bother again. Denies any drainage, slight swelling. Landon Valverde DPM [address] [place], [address], [facility] 12/22/2022 16:15:28 02/23/2023 text/html HPI Notes: This established patient ptc for evaluation and treatment of painful, thick toenails b/l they are unable to trim. They are painful in shoes and with pressure. The sore to his lateral right foot is just starting to bother again. Denies any drainage, slight swelling. Landon Valverde DPM [address] [place], [address], [facility] - [facility] 02/23/2023 15:47:55 04/06/2023 text/html HPI Notes: This established patient ptc for evaluation and treatment of painful, thick toenails b/l they are unable to trim. They are painful in shoes and with pressure. The sore to his lateral right foot is just starting to bother again. Denies any drainage, slight swelling. Landon Valverde DPM [address] [place], [address], [facility] 04/06/2023 14:24:02
--- OUTSIDE RECORDS SUMMARY | 2023-10-26 17:19 | XMS_ITS | Encounter Summary ---
Author Name Department of Vetera Affairs Organization Department of Vetera [facility] Address [address] [place] [address] Care Team Providers Care Filler Shredder Name Role Phone NONA PAULINO Primary Care Provider [facility] Insurance Providers: All historical and current Section Date Range: From patient's date of to the date document was created. This section includes the names of all active insurance providers for the patient. Insurance Provider Type of Coverage Plan Name Start of Policy Coverage End of Policy Coverage Group Number Member ID Insurance Provider's Telephone Number Policy Mandel's Name Patient's Relationship to Policy Mandel [facility] (WNR) MEDICARE [facility] (WNR) May 02, 2016 [id number] [phone] Duarte PANDYA PATIENT [facility] (WNR) MEDICARE [facility] (WNR) May 02, 2016 [id number] [phone] Duarte PANDYA PATIENT Selected Encounter This section includes the information on record at [place] for the Encounter. Date/Time Encounter Type Encounter Description Reason Provider Source Oct 25, 2023 05:27 PM HC PRO PHONE CALL 5-10 MIN TELEPHONE/MEDICINE ICD-10-CM G47.39 Other sleep apnea VICKI HERNANDEZ Encounter Template Text not used by [place] Assessments - Encounter Diagnoses This section includes the primary and secondary diagnoses documented for the Encounter. Date/Time Primary/Secondary Diagnosis Diagnosis Name Provider Source Oct 25, 2023 05:27 PM PRIMARY Other sleep apnea VICKI HERNANDEZ [facility] Plan of Treatment: Future Appointments (+ 6 months) and Future Tests (+/- 45 days) The Plan of Treatment section includes future care activities for the patient from all [facility] This section includes future appointments and future orders which are active, pending or scheduled. Future Appointments This section includes appointments that were scheduled to occur 6 months from the date of the Encounter, up to a maximum of 20 appointments. The data comes from all [place] treatment [facility]. Appointment Date/Time Appointment Type Appointme nt Facility Name Nov 02, 2023 01:30 PM AMBULATORY - SURGERY [facility] Nov 08, 2023 05:30 PM AMBULATORY - REHAB [facility]IC[facility] Dec 26, 2023 11:00 AM AMBULATORY - REHAB MEDICIN [facility] Jan 11, 2024 01:20 PM AMBULATORY - SURGERY [facility] Jan 31, 2024 12:00 PM AMBULATORY - MEDICINE [facility] Active, Pending, and Scheduled Orders This section includes a listing of several types of active, pending, and scheduled orders, including clinic medications orders, diagnostic test orders, procedure orders and consult orders; where the start date of the order is 45 days before the date of the Encounter or 45 days after the date of theEncounter. The data comes from all [facility]. Test Date/Time Test Type Test Details Facility Name Oct 24, 2023 03:59 PM Consult Order OT OCCUPAT IONAL THERAPY OUTPT EQUIPMENT Cons Parts Representative's Choice [facility] Lab Results: +/- 30 days of the encounter This section includes the Chemistry and Hematology Lab Results on record with [place] for the patient. Radiology Reports and Pathology Reports are provided separately, in subsequent sections. Lab Results This section contains the Chemistry/Hematology Results that were resulted 30 days before or 30 daysafter the date of the Encounter. Date/Time Source Result Type Result - Unit Interpretation Reference Range Comment Oct 24, 2023 01:17 PM [facility] HEMOGLOBIN A1C Specimen Type: BLOOD Comment: [...] Jul 28, 2023 11:33 PM Reporting Lab: [facility] [id number] Performing Lab: [facility] [id number] HEMOGLOBIN A1C 5.5 4.0-6.0 Oct 24, 2023 01:17 PM [facility] FOLATE Specimen Type: SERUM No comment entered. Ordering Provider: LES PAULINO Report Released Date/Time: Jul 28, 2023 11:33 PM Reporting Lab: [facility] [id number] Performing Lab: [place] [id number] FOLATE 8.1 ng/mL >7.0 Oct 24, 2023 01:17 PM [facility] LIPID PANEL,NON-FASTING Specimen Type: PLASMA No comment entered. Ordering Provider: LES PAULINO Report Released Date/Time: Jul 28, 2023 11:33 PM Reporting Lab: [facility] [id number] Performing Lab: [facility] [address] CHOLESTEROL 150 mg/dL <199 .HDL 54 mg/dL >40 LDL CALCULATION 84 mg/dL <99 VLDL CALCULATION 12 mg/dL <29 NON HDL CHOLESTEROL 96 mg/dL <129 TRIG(NON FASTING) 60 mg/dL <149 Oct 24, 2023 01:17 PM [facility] B 12 Specimen Type: SERUM No comment entered. Ordering Provider: LES PAULINO Report Released Date/Time: Jul 28, 2023 11:33 PM Reporting Lab: [facility] [id number] Performing Lab: [facility] [id number] B 12 316 pg/mL 213-816 Oct 24, 2023 01:17 PM [facility] BASIC METABOLIC PANEL+MG Specimen Type: PLASMA No comment entered. Ordering Provider: LES PAULINO Report Released Date/Time: Jul 28, 2023 11:33 PM Reporting Lab: [facility] [phone] Performing Lab: [facility] [phone] CREATININE 1.0 mg/dL 0.7-1.2 UREA NITROGEN 23 mg/dL 8-26 GLUCOSE 86 mg/dL 70-100 SODIUM 141 mmol/L 136-145 POTASSIUM 4.7 mmol/L 3.5-5.1 CHLORIDE 108 mmol/L H 98-107 CO2 25 mmol/L 22-29 CALCIUM 9.6 mg/dL 8.4-10.2 MAGNESIUM 2.0 mg/dL 1.6-2.6 ANION GAP 8 mmol/L 5-15 .CREAT EGFR(CKD-EPI) 73 >60 Oct 24, 2023 01:17 PM [facility] CBC Specimen Type: BLOOD No comment entered. Ordering Provider: LES PAULINO Report Released Date/Time: Jul 28, 2023 11:33 PM Reporting Lab: [facility] [id number] Performing Lab: [facility] [phone] WBC 7.64 10*3/uL 4.0-11.0 RBC 4.19 10*6/uL L 4.6-6.2 HGB 12.9 g/dL L 13.5-17.9 HCT 39.5 L 41-54 MCV 94.3 fL 80-100 MCH 30.8 pg 27-33 MCHC 32.7 g/dL 32.0-37.5 PLT 213 10*3/uL 150-400 MPV 9.1 fL 7.4-10.4 RDW 13.7 11.5-14.5 Oct 24, 2023 01:17 PM [facility] IRON GROUP Specimen Type: SERUM No comment entered. Ordering Provider: LES PAULINO UL Report Released Date/Time: Jul 28, 2023 11:33 PM Reporting Lab: [facility] [id number] Performing Lab: [facility] [phone] IRON 83 ug/dL 65-175 TIBC,CALCULAT ED 285 ug/dL 250-425 FERRITIN 150.3 ng/mL 21.8-274.7 IRON SATURATION 29 20-50 TRANSFERRIN 228 mg/dL 163-382 Social History: Smoking Status (Most current) and Tobacco Use (All prior to encounter date) This section includes the most current, and the historical, smoking and tobacco- related health factors from the [place] facility where the Encounter took place. Current Smoking Status This section includes the most current smoking, or tobacco-related health factor, from the [place] facility where the Encounter took place. Date/Time Current Smoking Status Comment Facil ity Oct 24, 2023 02:30 PM VA-TOBACCO FORMER USER [facility] Tobacco Use History This section includes a history of the smoking, or tobacco-related health factors, that were collected on or before the date of the Encounter. The data comes from the [place] facility where the Encounter took place. Date/Time Smoking Status/Tobacco Use Comment F acility Oct 24, 2023 02:30 PM VA-TOBACCO QUIT 15 YRS OR MORE [facility] Jan 17, 2023 01:00 PM VA-TOBACCO FORMER USER [facility] Jan 17, 2023 01:00 PM VA-TOBACCO QUIT 15 YRS OR MORE [facility] Feb 01, 2022 01:00 PM VA-TOBACCO FORMER USER [facility] Feb 01, 2022 01:00 PM VA-TOBACCO [...] TOBACCO USE IN LAST [address] [facility] Jun 29, 2017 02:21 PM FORMER TOBACCO USER 7Y OR GREATE R [facility] September 16, 2016 05:29 AM INPT NO TOBACCO USE IN LAST [address] [facility] May 06, 2016 10:21 AM FORMER TOBACCO USER 7Y OR GREATE R [facility] Mar 24, 2016 11:54 AM INPT NO TOBACCO USE IN LAST [address] [facility] Jun 23, 2015 10:20 AM FORMER [...] GREATE R [facility] Advance Directives: All historical and current Section Date Range: From patient's date of to the date document was created. This section includes ALL of a patient's completed or amended [place] Advance and Rescinded Directives. The entries below indicate that a directive exists for the patient, but an actual copy is not included with this document. The data comes from all [place] facilities. Date Advance Directives Provider Source Jul 15, 2016 ADVANCE DIRECTIVE ARIEL TREVINO [facility] Jul 15, 2016 ADVANCE DIRECTIVE DISCUSSION MAUREEN TREVINO [facility] Mar 22, 2016 CLINICAL WARNING PRUDENCIO TYLER [facility] Feb 05, 2011 CLINICAL WARNING LIZ[facility] Dec 17, 2010 CLINICAL WARNING QUE CAMERON [facility] Aug 26, 2003 ADVANCE DIRECTIVE ELGIN HOOPER [facility] Encounter Notes: All associated encounter notes This section contains the clinical notes associated to the Encounter. Date/Time Encounter Note(s) Provider Source Oct 25, 2023 05:27 PM SLEEP MEDICINE NOT E: LOCAL TITLE: SLEEP MEDICINE NOTE STANDARD TITLE: SLEEP MEDICINE NOTE DATE OF NOTE: OCT 25, 2023@17:27 ENTRY DATE: OCT 25, 2023@17:27:10 AUTHOR: VICKI HERNANDEZ EXP COSIGNER: URGENCY: STATUS: COMPLETED PAP Therapy Telephone Follow-Up Diagnosis: ELSA Reason for call: Return patient's call Patient called regarding: Supplies needed Water tank is broken Assessment/Plan:Mail supplies Patient instructed to call with problems/questions or if symptoms aren't improved. /vincenzo/ VICKI HERNANDEZ EMAIL DEVELOPER Signed: 10/25/2023 17:28 VICKI HERNANDEZ [facility]
== END 2023-10-26 17:30 | disposition home or self-care (01) ==
LOC: ED 17:06
PROVIDERS: Emergency Provider Family Medicine
DX: R60.9 Edema, unspecified (principal); S80.821A Blister (nonthermal), right lower leg, initial encounter
CPT/HCPCS: 99282; 99283; 99284

== ENCOUNTER 2024-01-24 01:36 | Emergency (ER) | payer OTHER, SELFPAY ==
--- NOTE | 2024-01-24 01:42 | ED_ITS ---
HPI - General Adult General Time Seen by Provider: 01:43 Date Seen: 01/24/24 Chief complaint: Fever Stated complaint: body aches, not feeling well Time Seen by Provider: 01/24/24 01:42 Source: patient, RN notes reviewed and old records reviewed Mode of arrival: ambulatory Limitations: no limitations History of Present Illness HPI narrative: 88-year-old male who presents today with generalized body aches and malaise. This started 2 days ago. He describes runny nose and slight cough as well, nausea without vomiting. Denies abdominal pain, diarrhea, does have some urinary frequency which she says is usual for him. Has not taken anything for this. Related Data Home Medications ?Medication ?Instructions ?Recorded ?Confirmed albuterol 90 mcg/actuation aerosol mcg inhalation 01/24/24 inhaler amiodarone 100 mg tablet 100 mg PO DAILY 01/24/24 01/24/24 amiodarone 200 mg tablet 200 mg PO DAILY 01/24/24 01/24/24 amlodipine 5 mg tablet 5 mg PO DAILY 01/24/24 01/24/24 carboxymethylcellulose sodium 1 % 1 drp ophthalmic (eye) DAILY 01/24/24 01/24/24 eye drops (Artificial Tears (carboxymethylcellulose)) doxazosin 2 mg tablet 2 mg PO DAILY 01/24/24 01/24/24 famotidine 20 mg tablet (Acid 20 mg PO DAILY 01/24/24 01/24/24 Sheet Metal Superintendent (famotidine)) finasteride 1 mg tablet 1 mg PO DAILY 01/24/24 01/24/24 fluticasone 250 mcg-salmeterol 50 1 inh inhalation BID 01/24/24 01/24/24 mcg/dose blistr powdr for inhalation losartan 50 mg tablet (Cozaar) 50 mg PO DAILY 01/24/24 01/24/24 nystatin 100,000 unit/gram topical 1 applic topical DAILY 01/24/24 01/24/24 cream polyethylene glycol 3350 17 4 g PO DAILY 01/24/24 01/24/24 gram/dose oral powder tiotropium bromide 18 mcg capsule 1 cap inhalation DAILY 01/24/24 01/24/24 with inhalation device Allergies Allergy/AdvReac Type Severity Reaction Status Date / Time [place] nut Allergy Intermediate Verified 10/26/23 16:23 animals Allergy Intermediate Uncoded 10/26/23 16:[address] [facility] Social History Smoking Status: Former smoker Do you use any of these nicotine containing products: None Second hand tobacco smoke exposure: No How often do you have a drink containing alcohol: never How often do you have six or more drinks on one occasion: Never AUDIT-C Alcohol total score: 0 Non-prescribed substance use: denies use service: Yes Exam Narrative: Exam Narrative: General: Well-developed and well-nourished, no acute distress Head: Atraumatic and normocephalic Eyes: Pupils are equal reactive, extraocular motions intact, conjunctiva clear ENT: External nose and ears are normal, posterior pharynx without erythema or exudate Neck: No midline cervical tenderness, full spontaneous range of motion the neck, trachea midline, no adenopathy Heart: Regular rate and rhythm no murmurs or thrills Lungs: Clear to auscultation bilaterally without wheezes or crackles Abdomen: Soft, nontender, nondistended with active bowel sounds Musculoskeletal: No tenderness, deformity, or edema Neurologic: Awake, alert, and oriented x3, no gross focal neurologic deficits, cranial nerves intact as tested Psych: Mood and affect are appropriate Skin: No rashes Const: Vital Signs, click to edit/add: Vital Signs - 24 hr 01/24/24 02:05 01/24/24 03:30 01/24/24 03:35 Temperature 99.2 F 101.6 F H 101.6 F H Pulse Rate [Pulse Oximeter] 93 95 Respiratory Rate 20 20 Blood Pressure [Ri ght Upper Arm] 159/84 H 160/87 H Pulse Oximetry 94 95 Oxygen Delivery Me thod Room Air Room Air 01/24/24 04:07 01/24/24 05:02 Temperature 100.8 F H 100.4 F H Pulse Rate [Pulse Oximeter] 103 H 80 Respiratory Rate 20 18 Blood Pressure [Ri ght Upper Arm] 131/64 131/74 Pulse Oximetry 95 90 Oxygen Delivery Me thod Room Air Room Air Course Course ED Course: Patient seen examined, presents today with generalized body aches and lab as along with runny nose, cough, nausea. On exam here, vital is stable. No fever, no tachycardia. Lungs are clear, posterior pharynx without erythema or exudate. Symptoms are most consistent with viral process, COVID and flu swabs are ordered. Labs ordered as well, consider abdominal CT but no abdominal pain or tenderness. Chest x-ray will be performed, patient will be given Toradol IV if renal function appropriate. Reevaluation(s) Time of Reevaluation #1: 02:36 Reevaluation #1: X-ray ordered and independently interpreted by me demonstrates hiatal hernia, this is been seen previously in is unchanged. Time of Reevaluation #2: 03:20 Reevaluation #2: Labs independently interpreted by me with normal CBC, negative COVID, negative influenza. Reviewed radiology interpretation of chest x-ray which agrees with my initial interpretation. Time of Reevaluation #3: 03:43 Reevaluation #3: With urinalysis independently interpreted by me with ketones but no other findings and no evidence infection. Basic metabolic panel is reassuring. No definite source for patient's fever is found today. His body aches and chills are related fever, possibly related to upper respiratory infection as patient has a runny nose and a little bit of cough. No evidence for urinary tract infection, pneumonia. Viral respiratory panel is negative. No abdominal pain or tenderness, white blood cell count is normal. Will CT scan of the abdomen to evaluate for gallbladder disease or other intraabdominal pathology. If negative, patient can be discharged 5:09 a.m. reviewed radiology interpretation CT scan of the abdomen pelvis which shows cholelithiasis, no other acute findings. Patient is stable for discharge Additional Reevaluation(s): 4:[address] scan of chest and gentle interpreted by me negative for acute findings. Vital Signs Vital signs: Initial Vital Signs Temperature 99.2 F 01/24/24 02:05 Temperature Source Temporal Artery Scan 01/24/24 02:05 Pulse Rate 93 01/24/24 02:05 Pulse Rhythm Regular 01/24/24 02:05 Respiratory Rate 20 01/24/24 02:05 Blood Pressure 159/84 H 01/24/24 02:05 Blood Pressure Mean 109 H 01/24/24 02:05 Blood Pressure Position Supine 01/24/24 02:05 Pulse Oximetry 94 01/24/24 02:05 Oxygen Delivery Method Room Air 01/24/24 02:05 Vital Signs Temperature 99.2 F 01/24/24 02:05 Pulse Rate 93 01/24/24 02:05 Respiratory Rate 20 01/24/24 02:05 Blood Pressure 159/84 H 01/24/24 02:05 Pulse Oximetry 94 01/24/24 02:05 Oxygen Delivery Method Room Air 01/24/24 02:05 Temperature 100.4 F H 01/24/24 05:02 Pulse Rate 80 01/24/24 05:02 Respiratory Rate 18 01/24/24 05:02 Blood Pressure 131/74 01/24/24 05:02 Pulse Oximetry 90 01/24/24 05:02 Oxygen Delivery Method Room Air 01/24/24 05:02 Medications Administered Medications: Discontinued Medications Generic Name Dose Route Start Last Admin Trade Name Roberto PRN Reason Stop Dose Admin Acetaminophen 1,000 mg 01/24/24 03:20 01/24/24 03:30 Acetaminophen 500 Mg Tablet PO 01/24/24 03:21 1,000 mg ONCE ONE Administration Sodium Chloride 1,000 mls @ 1,000 mls/hr 01/24/24 04:00 01/24/24 04:04 0.9 % Sodium Chloride 1000 Ml IV 01/24/24 04:59 1,000 mls/hr .Q1H RUDDY Administration Medical Decision Making Lab Data Labs: Lab Results 01/24/24 01/24/24 01/24/24 Range/Units 02:06 03:00 03:10 WBC 8.93 (4.50-11.00) K/uL RBC 4.26 L (4.30-5.90) m/uL Hgb 13.0 L (13.5-17.5) gm/dL Hct 39.4 (37.0-53.0) % MCV 93 (80-100) fL MCH 31 (26-34) pg MCHC 33 (32-36) gm/dL RDW Coeff of Lety 13.1 (11.5-15.5) % Plt Count 161 (140-440) K/uL Neut % (Auto) 84.6 H (42.0-72.0) % Lymph % (Auto) 6.5 L (20-44) % Coffee % (Auto) 8.1 (0.0-11.0) % Eos % (Auto) 0.3 (0.0-7.0) % Baso % (Auto) 0.3 (0.0-3.0) % Neut # (Auto) 7.60 H (1.7-7.0) K/uL Lymph # (Auto) 0.60 L (0.90-2.90) K/uL Coffee # (Auto) 0.70 (0.00-0.90) K/UL Eos # (Auto) 0.03 (0.00-0.50) K/uL Baso # (Auto) 0.03 (0.00-0.30) K/uL Abs Immat Gran (auto) 0.02 (0.00-0.30) K/uL Imm/Tot Granulo (auto) 0.2 % Sodium 136 (135-149) mmol/L Potassium 4.2 (3.6-5.1) mmol/L Chloride 106 (96-114) mmol/L Carbon Dioxide 22 (20-32) mmol/L Anion Gap 8 (7-15) mEq/L BUN 21 (7-30) mg/dL Creatinine 0.8 (0.5-1.5) mg/dL Estimated Creat Clear 58.20 Estimated GFR 86 ml/min Glucose 129 H (60-115) mg/dL Calcium 9.0 (8.4-10.6) mg/dL Total Bilirubin 0.9 (0.1-1.5) mg/dL Direct Bilirubin 0.3 (0.0-0.5) mg/dL AST 23 (12-35) U/L ALT 13 (4-50) U/L Alkaline Phosphatase 69 (40-150) U/L Total Protein 7.0 (6.0-8.3) g/dL Albumin 3.8 (3.3-5.0) g/dL Urine Color Yellow (Yellow) Urine Appearance Clear (Clear) Urine pH 5.5 (5.0-8.5) Ur Specific [place] >= 1.030 (1.000-1.030) Urine Protein Negative (Negative) Urine Glucose (UA) Negative (Negative) Urine Ketones 3+ A (Negative) Urine Blood Negative (Negative) Urine Nitrite Negative (Negative) Urine Bilirubin Negative (Negative) Urine Urobilinogen 0.2 (0.2-1.0) Ur Leukocyte Esterase Negative (Negative) Urine RBC 0-2 (0-2) Urine WBC 0-2 (0-5) Ur Squamous Epith Cells None (None-Few) Urine Bacteria None (None) SARS-CoV-2 (PCR) Negative SARS-CoV-2 (Negative) Influenza Type A (PCR) Negative PCR FLU A (Negative) Influenza Type B (PCR) Negative PCR FLU B (Negative) RSV (PCR) Negative PCR RSV (Negative) Lab Acknowledgement 01/24/24 Range/Units 04:16 WBC (4.50-11.00) K/uL RBC (4.30-5.90) m/uL Hgb (13.5-17.5) gm/dL Hct (37.0-53.0) % MCV (80-100) fL MCH (26-34) pg MCHC (32-36) gm/dL RDW Coeff of Lety (11.5-15.5) % Plt Count (140-440) K/uL Neut % (Auto) (42.0-72.0) % Lymph % (Auto) (20-44) % Coffee % (Auto) (0.0-11.0) % Eos % (Auto) (0.0-7.0) % Baso % (Auto) (0.0-3.0) % Neut # (Auto) (1.7-7.0) K/uL Lymph # (Auto) (0.90-2.90) K/uL Coffee # (Auto) (0.00-0.90) K/UL Eos # (Auto) (0.00-0.50) K/uL Baso # (Auto) (0.00-0.30) K/uL Abs Immat Gran (auto) (0.00-0.30) K/uL Imm/Tot Granulo (auto) % Sodium (135-149) mmol/L Potassium (3.6-5.1) mmol/L Chloride (96-114) mmol/L Carbon Dioxide (20-32) mmol/L Anion Gap (7-15) mEq/L BUN (7-30) mg/dL Creatinine (0.5-1.5) mg/dL Estimated Creat Clear Estimated GFR ml/min Glucose (60-115) mg/dL Calcium (8.4-10.6) mg/dL Total Bilirubin (0.1-1.5) mg/dL Direct Bilirubin (0.0-0.5) mg/dL AST (12-35) U/L ALT (4-50) U/L Alkaline Phosphatase (40-150) U/L Total Protein (6.0-8.3) g/dL Albumin (3.3-5.0) g/dL Urine Color (Yellow) Urine Appearance (Clear) Urine pH (5.0-8.5) Ur Specific [place] (1.000-1.030) Urine Protein (Negative) Urine Glucose (UA) (Negative) Urine Ketones (Negative) Urine Blood (Negative) Urine Nitrite (Negative) Urine Bilirubin (Negative) Urine Urobilinogen (0.2-1.0) Ur Leukocyte Esterase (Negative) Urine RBC (0-2) Urine WBC (0-5) Ur Squamous Epith Cells (None-Few) Urine Bacteria (None) SARS-CoV-2 (PCR) (Negative) Influenza Type A (PCR) (Negative) Influenza Type B (PCR) (Negative) RSV (PCR) (Negative) Lab Acknowledgement Test Added Discharge Plan Discharge Clinical Impression: Viral infection, Fever Patient Disposition: Home, Self-Care Condition: Stable Instructions: Fever in Adults (ED), Viral Syndrome (ED) Additional Instructions: Follow-up with your doctor in 3-5 days if not better Activity Level: Activity as Tolerated Discharge Diet: Regular Prescriptions: No Action albuterol 90 mcg/actuation aerosol inhalation amlodipine 5 mg tablet 5 mg PO DAILY Artificial Tears (cmc) 1 % drops 1 drp ophthalmic (eye) DAILY doxazosin 2 mg tablet 2 mg PO DAILY famotidine [Acid Sheet Metal Superintendent (famotidine)] 20 mg tablet 20 mg PO DAILY finasteride 1 mg tablet 1 mg PO DAILY fluticasone propion-salmeterol 250-50 mcg/dose blister with device 1 inh inhalation BID losartan [Cozaar] 50 mg tablet 50 mg PO DAILY nystatin 100,000 unit/gram cream 1 applic topical DAILY polyethylene glycol 3350 17 gram/dose powder 4 g PO DAILY tiotropium bromide 18 mcg capsule, w/inhalation device 1 cap inhalation DAILY Rx Instructions: puncture 1 cap using device; one dose = 2 inhalations amiodarone 100 mg tablet 100 mg PO DAILY amiodarone 200 mg tablet 200 mg PO DAILY Follow Up/Referrals: Provider,Not a Local [Primary Care Provider] - Stand Alone Forms: [employer] Info Instructions
[2024-01-24 02:05] VITALS: BP 159/84; PULSE 93; RESP 20; TEMP 37.3; O2SAT 94; BMI 38.0
--- NOTE | 2024-01-24 02:10 | CRLHL7_ITS ---
For Patients: As a result of the Cures Act, medical imaging exams and procedure reports are released immediately into your electronic medical record. You may view this report before your referring provider. If you have questions, please contact your health care provider. 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 The heart silhouette is normal in size and morphology. Lung: Left basilar discoid atelectasis is noted with suspected trace left pleural effusion. No pneumothorax is identified. Bone and Soft tissue: Unremarkable for age. IMPRESSIONS: 1. Left basilar discoid atelectasis is noted with suspected trace left pleural effusion. 2. 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 Dictated by Jerel Fang MD @ 01/24/2024 2:43:09 AM Dictated by: Jerel Fang MD @ 01/24/2024 02:43:15 (Electronically Signed)
--- OUTSIDE RECORDS SUMMARY | 2024-01-24 02:24 | XMS_ITS | Continuity of Care Document ---
Author Name [facility] Organization [facility] Care Team Providers Care Shovel Handle Assembler Name Role Phone [facility] Unavailable Unavailable Problems Combined list of problems from Department of Defense and [facility] Affairs facilities. It does not include entries that were removed or entered in error. Problem Status Onset Date Problem Type Date of Resolution Comments Source ANEMIA NOS Active Condition [facility] Arrhythmia (SNOMED CT 667721682) Active Condition [facility] Asthma (SNOMED CT 001682223) Active Condition [facility] Atrial fibrillation Active Condition [facility] Gomez's esophagus Active Condition [facility] Benign prostatic hyperplasia (SNOMED CT 678676871) Active Condition [facility] Bigeminy (ICD-9-CM 427.89) Active Condition [facility] Bradycardia * (ICD-9-CM 427.89) [facility] Cardiomyopathy (SNOMED CT 87704076) Active Condition [place] [facility] Cataract nos Active Condition [facility] COPD - Chronic obstructive pulmonary disease Active Condition [facility] Dizziness and giddiness Active Condition [facility] Empyema, Pleural * (ICD-9-CM 510.9) [facility] Gastroesophageal reflux disease (SNOMED CT 990734237) Active Condition [facility] HEMATURIA Active Condition [facility] Hypertension (SNOMED CT 54199096) Active Condition Nov 27, 2020 Entered By: NONA PAULINO Comment: 24 HR BP Monitor October 2020 - avg BP 124/68, avg HR 68 [facility] IMPOTENCE, ORGANIC Active Condition [facility] [facility] Nocturia Active Condition [facility] Pseudophakia Active Condition [facility] Simple obesity (SNOMED CT 324315125) Active Condition [facility] Sleep apnea (SNOMED CT 08132214) Active Condition [facility] Diagnosis: ICD-10-CM H04.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 Active Diagnosis [facility] Diagnosis: ICD-10-CM L84 Corns and callosities Active Diagnosis [facility] Diagnosis: ICD-10-CM H90.3 Sensorineural hearing loss, bilateral Active Diagnosis [facility] Diagnosis: ICD-10-CM R60.9 Edema, unspecified Active Diagnosis [facility] Diagnosis: ICD-10-CM G47.39 Other sleep apnea Active Diagnosis [facility] Diagnosis: ICD-10-CM 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, unspecified Active Diagnosis [facility] Diagnosis: ICD-10-CM 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 Active Diagnosis [facility] Diagnosis: ICD-10-CM I10 Essential (primary) hypertension Active Diagnosis [facility] Diagnosis: ICD-10-CM I49.9 Cardiac arrhythmia, unspecified Active Diagnosis [facility] Diagnosis: ICD-10-CM Z13.6 Encounter for screening for cardiovascular disorders Active Diagnosis [facility] Diagnosis: ICD-10-CM I49.3 Ventricular premature depolarization Active Diagnosis [facility] Diagnosis: ICD-10-CM R35.1 Nocturia Active Diagnosis [facility] Diagnosis: ICD-10-CM N40.1 Benign prostatic hyperplasia with lower urinary tract symp Active Diagnosis [facility] Diagnosis: ICD-10-CM I87.2 Venous insufficiency (chronic) (peripheral) Active Diagnosis [facility] Diagnosis: ICD-10-CM 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 [facility] Diagnosis: ICD-10-CM R42 Dizziness and giddiness Active Diagnosis [facility] Diagnosis: ICD-10-CM E66.01 Morbid (severe) obesity due to excess calories [facility] Diagnosis: ICD-10-CM R26.89 Other abnormalities of gait and mobility Active Diagnosis [facility] Diagnosis: ICD-10-CM M25.512 Pain in left shoulder Active Diagnosis [facility] Diagnosis: ICD-10-CM Z46.1 Encounter for fitting and adjustment of hearing aid Active Diagnosis [facility] Diagnosis: ICD-10-CM Z96.1 Presence of intraocular lens Active [facility] Diagnosis: ICD-10-CM Z73.6 Limitation of activities due to disability Active Diagnosis [facility] Diagnosis: ICD-10-CM H81.10 Benign paroxysmal vertigo, unspecified ear Active Diagnosis [facility] Diagnosis: ICD-10-CM Z01.118 Encntr for exam of ears and hearing w oth abnormal findings Active Diagnosis [facility] Diagnosis: ICD-10-CM I42.9 Cardiomyopathy, unspecified Active Diagnosis [facility] Medications Combined list of outpatient medications from Department of Defense and Veterans Affairs facilities.Medications provided include 1) outpatient medications from the last 15 months, and 2) patient-reported medications. Medication Details Route Status Patient Instructions Prescription Expires Prescription Number Last Dispense Date Ordering Provider Order Date Order Qty Source ACETAMINOPH EN 325MG TAB ACETAMIN OPHEN 325MG TAB Active TAKE TWO TABLETS BY MOUTH THREE TIMES A DAY FOR PAIN -NOT TO EXCEED 4000MG IN 24 HOURS FROM ALL SOURCES May 19, 2023 200 May 19, 2024 [id number] Oct 04, [address] [facility] ORAL ACTIVE 05/19/2024 [id number] NONA SOTO [address] [facility] ALBUTEROL 90MCG/ACTUA T (CFC-F) INHL,ORAL,8 .5GM DOSE COUNTER ALBUTERO L 90MCG/AC TUAT (CFC-F) INHL,ORA L,8.5GM DOSE COUNTER Active INHALE 2 PUFFS BY INHALATI ON FOUR TIMES A DAY NEEDED FOR BREATHIN G SHAKE WELL (FOR IMMEDIAT E RELIEF) REPLACES LEVALBUT THEO. Nov 02, 2023 2 Nov 02, 2024 [id number] F Nov 02, [address] [facility] RESPIR ATORY (INHAL ATION) ACTIVE 11/02/2024 [id number] [facility] ALBUTEROL 90MCG/ACTUA T (CFC-F) INHL,ORAL,8 .5GM DOSE COUNTER ALBUTERO L 90MCG/AC TUAT (CFC-F) INHL,ORA L,8.5GM DOSE COUNTER Disconti nued INHALE 2 PUFFS BY INHALATI ON FOUR TIMES A DAY NEEDED FOR BREATHIN G SHAKE WELL (FOR IMMEDIAT E RELIEF) REPLACES LEVALBUT THEO. Oct 25, 2022 2 Oct 26, 2023 [id number] E Jul 25, 2023 NONA WERNER [place] [facility] RESPIR ATORY (INHAL ATION) DISCONT INUED 10/26/2023 [id number] 4 NONA SOTO 2022 2 [place] [facility] AMIODARONE HCL (PACERONE) 100MG TAB AMIODARO NE HCL (PACERON E) 100MG TAB Disconti nued TAKE ONE TABLET BY MOUTH EVERY DAY FOR HEART RHYTHM FOR HEART RHYTHM Apr 11, 2023 90 Apr 11, 2024 [id number] A Apr 23, 2023 Onelia CEVALLOS [facility] ORAL DISCONT INUED 04/11/2024 [id number] ACOSTA ALVAREZ NA NARAS 2022 90 [place] [facility] AMIODARONE HCL (PACERONE) 100MG TAB AMIODARO NE HCL (PACERON E) 100MG TAB Disconti nued TAKE ONE TABLET BY MOUTH EVERY DAY FOR HEART RHYTHM FOR HEART RHYTHM Nov 04, 2022 90 Nov 05, 2023 [id number] Jan 23, 2023 Onelia CEVALLOS [facility] ORAL DISCONT INUED 11/05/2023 [id number] ACOSTA ALVAREZ NA NARAS 2022 90 [place] [facility] AMLODIPINE BESYLATE 5MG TAB AMLODIPI NE BESYLATE 5MG TAB Active TAKE ONE TABLET BY MOUTH DAILY Jul 01, 2023 90 Jul 01, 2024 [id number] D Nov 02, 2023 NONA WERNER [facility] ORAL ACTIVE 07/01/2024 [id number] 4 NONA SOTO 2023 90 [place] [facility] AMLODIPINE BESYLATE 5MG TAB AMLODIPI NE BESYLATE 5MG TAB Disconti nued TAKE ONE TABLET BY MOUTH DAILY Jul 22, 2022 90 Jul 24, 2023 [id number] C Apr 12, 2023 Onelia CEVALLOS [facility] ORAL DISCONT INUED 07/24/2023 [id number] ACOSTA ALVAREZ 2022 90 [place] [facility] CARBOXYMETH YLCELLULOSE NA 0.25% SOLN,OPH CARBOXYM ETHYLCEL LULOSE NA 0.25% SOLN,OPH Active INSTILL 1 DROP IN BOTH EYES FOUR TIMES A DAY FOR DRY EYES FOR DRY EYES Jan 11, 2024 45 Jan 11, 2025 [id number] A Jan 13, 2024 ABHAY CAZARES TCHELL E [facility] OPHTHA LMIC ACTIVE 01/11/2025 [id number] KAN CAZARES LYNNETTE E 2023 45 [place] [facility] CARBOXYMETH YLCELLULOSE NA 0.25% SOLN,OPH CARBOXYM ETHYLCEL LULOSE NA 0.25% SOLN,OPH Disconti nued INSTILL 1 DROP IN BOTH EYES FOUR TIMES A DAY FOR DRY EYES FOR DRY EYES Dec 09, 2022 45 Dec 10, 2023 [id number] Oct 04, 2023 LUCINA LOPEZ [facility] OPHTHA LMIC DISCONT INUED 12/10/2023 [id number] LUCINA LOPEZ 2022 45 [place] [facility] CHOLECALCIF THEO TAB CHOLECAL CIFEROL TAB Non-VA TAKE BY MOUTH EVERY DAY Feb 22, 2018 Non-[place] Document ed by: NONA WERNER Document ed at: [facility] ORAL ACTIVE NONA SOTO 2017 [place] [facility] DOCUSATE CAP,ORAL DOCUSATE CAP,ORAL Non-VA TAKE 250MG BY MOUTH EVERY MORNING Feb 22, 2018 Non-VA Document ed by: NONA WERNER Document ed at: [facility] ORAL ACTIVE NONA SOTO 2017 [place] [facility] DOXAZOSIN MESYLATE 2MG TAB DOXAZOSI N MESYLATE 2MG TAB Active TAKE ONE TABLET BY MOUTH AT BEDTIME FOR BPH (BENIGN PROSTATI C HYPERPLA PAVAN) Apr 11, 2023 90 Apr 11, 2024 [id number] B Dec 29, 2023 NONA WERNER [facility] ORAL ACTIVE 04/11/2024 [id number] 4 NONA SOTO 2023 90 [place] [facility] DOXAZOSIN MESYLATE 2MG TAB DOXAZOSI N MESYLATE 2MG TAB Disconti nued TAKE ONE TABLET BY MOUTH AT BEDTIME FOR BPH (BENIGN PROSTATI C HYPERPLA PAVAN) Apr 17, 2022 90 Apr 19, 2023 [id number] A Feb 08, 2023 NONA WERNER [facility] ORAL DISCONT INUED 04/19/2023 [id number] 3 NONA SOTO 2022 90 [place] [facility] FAMOTIDINE 20MG TAB FAMOTIDI NE 20MG TAB TAKE ONE TABLET BY MOUTH TWICE A DAY TO DECREASE STOMACH ACID Jan 13, 2023 180 Jan 14, 2024 [id number] B Nov 03, 2023 NONA WERNER [facility] ORAL 01/14/2024 [id number] 4 NONA SOTO 2022 180 [place] [facility] FINASTERIDE 1MG TAB FINASTER CECE 1MG TAB Disconti nued TAKE TWO TABLETS BY MOUTH EVERY DAY FOR PROSTATE Oct 25, 2022 180 Oct 26, 2023 [id number] B Aug 15, 2023 Onelia CEVALLOS [facility] ORAL DISCONT INUED (EDIT) 10/26/2023 [id number] 4 ACOSTA ALVAREZ 2022 180 [place] [facility] FINASTERIDE 5MG TAB FINASTER CECE 5MG TAB Active TAKE ONE TABLET BY MOUTH EVERY DAY FOR PROSTATE FOR PROSTATE Oct 24, 2023 90 Oct 24, 2024 [id number] Jan 12, 2024 NONA WERNER [facility] ORAL ACTIVE 10/24/2024 [id number] NONA SOTO 2023 90 [place] [facility] FLUTICASONE 250MCG/SALM ETEROL 50MCG INHL,ORAL,D ISKUS,60 FLUTICAS ONE 250MCG/S ALMETERO L 50MCG INHL,ORA L,DISKUS ,60 Active INHALE 1 PUFF BY INHALATI ON TWICE A DAY TO PREVENT TROUBLE BREATHIN G - RINSE MOUTH AFTER USING. Nov 18, 2023 3 Nov 18, 2024 [id number] B Nov 21, 2023 [facility] RESPIR ATORY (INHAL ATION) ACTIVE 11/18/2024 [id number] 4 NONA SOTO 2023 3 [facility] FLUTICASONE 250MCG/SALM ETEROL 50MCG INHL,ORAL,D ISKUS,60 FLUTICAS ONE 250MCG/S ALMETERO L 50MCG INHL,ORA L,DISKUS ,60 Disconti nued INHALE 1 PUFF BY INHALATI ON TWICE A DAY TO PREVENT TROUBLE BREATHIN G - RINSE MOUTH AFTER USING. Oct 01, 2022 3 Oct 02, 2023 [id number] A Jul 29, 2023 NONA WERNER [facility] RESPIR ATORY (INHAL ATION) DISCONT INUED 10/02/2023 [id number] NONA SOTO 2022 3 [facility] FLUTICASONE PROPIONATE 50MCG/SPRAY SOLN,NASAL, 16GM FLUTICAS ONE PROPIONA TE 50MCG/SP RAY SOLN,ANYA AL,16GM Active SPRAY 1 SPRAY IN EACH NOSTRIL TWICE A DAY USE REGULARL Y FOR RELIEF OF ALLERGIE S/CONGES TION Nov 02, 2023 3 Nov 02, 2024 [id number] Nov 02, 2023 KB ISSA [facility] NASAL ACTIVE 11/02/2024 [id number] 2023 3 [facility] IBUPROFEN 400MG TAB IBUPROFE N 400MG TAB Non-VA TAKE ONE TABLET BY MOUTH TWICE A DAY NEEDED Feb 22, 2018 Non-VA Document ed by: NONA WERNER Document ed at: [facility] ORAL ACTIVE NONA SOTO 2017 [place] [facility] LACTOBACILL US ACIDOPHILUS TAB LACTOBAC ILLUS ACIDOPHI ALLYN TAB Disconti nued TAKE 1 TABLET BY MOUTH EVERY DAY (PROBIOT IC) Nov 02, 2023 100 Nov 02, 2024 [id number] B Nov 02, 2023 KB ISSA [facility] ORAL DISCONT INUED BY PROVIDE R 11/02/2024 [id number]23 100 [facility] LACTOBACILL US ACIDOPHILUS TAB LACTOBAC ILLUS ACIDOPHI ALLYN TAB Disconti nued TAKE 1 TABLET BY MOUTH EVERY DAY (PROBIOT IC) Jul 05, 2022 100 Jul 09, 2023 [id number] A Jun 27, 2023 [facility] ORAL DISCONT INUED 07/09/2023 [id number] 4 NONA SOTO 2022 100 [facility] LOSARTAN 50MG TAB LOSARTAN 50MG TAB Active TAKE ONE TABLET BY MOUTH EVERY DAY FOR BLOOD PRESSURE Jul 23, 2023 90 Jul 23, 2024 [id number] C Nov 07, 2023 NONA WERNER [facility] ORAL ACTIVE 07/23/2024 [id number] 4 NONA SOTO 2023 90 [facility] LOSARTAN 50MG TAB LOSARTAN 50MG TAB Disconti nued TAKE ONE TABLET BY MOUTH EVERY DAY FOR BLOOD PRESSURE Jul 22, 2022 90 Jul 23, 2023 [id number] B May 21, 2023 NONA WERNER [facility] ORAL DISCONT INUED 07/23/2023 [id number] 4 NONA SOTO 2022 90 [facility] NYSTATIN [id number] M CREAM,TOP NYSTATIN [id number] T/GM CREAM,TO P APPLY THIN LAYER TOPICALL Y TWICE A DAY FOR 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 ORAL ACTIVE ACOSTA ALVAREZ [address] [facility] POLYETHYLEN E GLYCOL 3350 PWDR,ORAL POLYETHY RICKY GLYCOL 3350 PWDR,ORA L Active TAKE 17 GRAMS BY MOUTH EVERY DAY FOR CONSTIPA TION - MIX IN 4 TO 8 OUNCES OF LIQUID DIRECTED *USE COVER TO MEASURE POWDER* Dec 23, 2023 510 Dec 23, 2024 [id number] E Dec 27, [address] [facility] ORAL ACTIVE 12/23/2024 [id number] 4 NONA SOTO [address] [facility] POLYETHYLEN E GLYCOL 3350 PWDR,ORAL POLYETHY RICKY GLYCOL 3350 PWDR,ORA L Disconti nued TAKE 17 GRAMS BY MOUTH EVERY DAY FOR CONSTIPA TION - MIX IN 4 TO 8 OUNCES OF LIQUID DIRECTED *USE COVER TO MEASURE POWDER* Jan 06, 2023 510 Jan 07, 2024 [id number] D Nov 02, [address] [facility] ORAL DISCONT INUED 01/07/2024 [id number] 4 NONA SOTO 2022 510 [facility] POLYETHYLEN E GLYCOL 3350 PWDR,ORAL POLYETHY RICKY GLYCOL 3350 PWDR,ORA L Disconti nued TAKE 17 GRAMS BY MOUTH EVERY DAY FOR CONSTIPA TION - MIX IN 4 TO 8 OUNCES OF LIQUID DIRECTED *USE COVER TO MEASURE POWDER* Apr 09, 2022 510 Apr 10, 2023 [id number] C Nov 25, [address] [facility] ORAL DISCONT INUED 04/10/2023 [id number] 3 NONA SOTO [address] [facility] POLYVINYL ALCOHOL 1.4% SOLN,OPH POLYVINY L ALCOHOL 1.4% SOLN,OPH Non-VA INSTILL 1 DROP IN BOTH EYES NEEDED Mar 31, 2016 Non-VA Document ed by: GRANT KAT Document ed at: [facility] OPHTHA LMIC ACTIVE GRANT RECINOS 2015 [facility] POVIDONE IODINE 10% SWABSTICK,T OP POVIDONE IODINE 10% SWABSTIC K,TOP Active APPLY 1 SWAB TO TOPICALL Y EVERY DAY Foot wound Jan 10, 2024 50 Jan 10, 2025 [id number] Jan 10, 2024 SANDHU, PAMELA LARISSA [facility] TOPICA L ACTIVE 01/10/2025 [id number] SANDHU,A RUY LARISSA [address] [facility] SODIUM CHLORIDE 0.65% SOLN,SPRAY, NASAL SODIUM CHLORIDE 0.65% SOLN,SPR AY,NASAL Non-VA SPRAY 2 SPRAYS IN EACH NOSTRIL TWICE A DAY NEEDED Feb 22, 2018 Non-VA Document ed by: NONA WERNER Document ed at: [facility] NASAL ACTIVE NONA SOTO 2017 [facility] TIOTROPIUM 18MCG CAP,INHL,30 TIOTROPI UM 18MCG CAP,INHL ,30 Active INHALE ONE CAPSULE IN INHALER BY INHALATI ON EVERY DAY TO PREVENT TROUBLE BREATHIN G Nov 02, 2023 3 Nov 02, 2024 [id number] F Nov 02, [address] [facility] RESPIR ATORY (INHAL ATION) ACTIVE 11/02/2024 [id number] [address] [facility] TIOTROPIUM 18MCG CAP,INHL,30 TIOTROPI UM 18MCG CAP,INHL ,30 Disconti nued INHALE ONE CAPSULE IN INHALER BY INHALATI ON EVERY DAY TO PREVENT TROUBLE BREATHIN G Oct 25, 2022 3 Oct 26, 2023 [id number] E Jul 29, [address] [facility] RESPIR ATORY (INHAL ATION) DISCONT INUED 10/26/2023 [id number] 4 NONA SOTO [address] [facility] VANICREAM VANICREA M Active APPLY THIN LAYER TOPICALL Y TWICE A DAY FOR DRY SKIN Feb 22, 2023 908 Feb 23, 2024 [id number] A Oct 04, [address] [facility] TOPICA L ACTIVE 02/23/2024 [id number] 4 NONA SOTO [address] [facility] Allergies, Adverse Reactions, Alerts Combined list of allergies from Department of Defense and Veterans Affairs facilities. It does not include entries that were removed or entered in error. Substance Category Reaction Severity Reaction type Status Date Reported Comments Source ANIMALS Propensity to adverse reaction (finding) Asthma finding, Swelling of structure of eye, Dyspnea active 1 [facility] BRAZIL NUTS Propensity to adverse reactions to food (finding) Urticaria active 7 [facility] Immunizations Combined list of available immunizations from the Department of Defense and Veterans Affairs facilities. Immunization Series Date Given Administered By Site Reaction Lot Number CVX Code Drug Bin Piler Status Comments Source COVID-19 (Levels Beyond), MRNA, LNP-S, PF, 30 MCG/0.3 ML DOSE 2 2020 208 complet ed PFR; [id number]; 1 [facility] COVID-19 (PFIZER), MRNA, LNP-S, PF, 30 MCG/0.3 ML DOSE 1 2020 208 complet ed PFR; [id number]; 1 [facility] INFLUENZA, INJECTABLE, QUADRIVALENT, PRESERVATIVE FREE [address] [facility] INFLUENZA, SEASONAL, INJECTABLE, PRESERVATIVE FREE [address] [facility] ZOSTER RECOMBINANT [address] [facility] PNEUMOCOCCAL POLYSACCHARID E [id number] [address] [facility] ZOSTER RECOMBINANT 1 [address] [facility] PNEUMOCOCCAL CONJUGATE PCV 13 2014 133 complet ed [id number], 06/2016 [facility] TDAP 2013 115 complet ed [id number], 07/27/15 [facility] ZOSTER LIVE 2013 121 complet ed merck 04/26/14, [id number] [facility] TD(ADULT) UNSPECIFIED FORMULATION 2006 [place] [address] [facility] PNEUMOCOCCAL, UNSPECIFIED FORMULATION 2002 NONE [address] [facility] INFLUENZA (HISTORICAL) [address] [facility] INFLUENZA (HISTORICAL) 2002 88 complet ed Received 50% of child dosage on 02/22/03 et 03/14/03. [facility] TD (ADULT), 5 LF TETANUS TOXOID, PRESERVATIVE FREE, ADSORBED [address] [facility] TD(ADULT) UNSPECIFIED FORMULATION [address] [facility] Results Combined list of recent chemistry, hematology [...] Jul 28, 2023 11:33 PM Reporting Lab: [facility] [place] [address] Performing Lab: [facility] [place] [address] [place] [facility] LIPID PANEL,NON -FASTING CHOLESTEROL [MASS/VOLUM E] IN SERUM OR PLASMA 150 mg/dL <199 - 199 10/23 Specimen Type: PLASMA No comment entered. Ordering Provider: NONA PAULINO Report Released Date/Time: Jul 28, 2023 11:33 PM Reporting Lab: [facility] [place] [address] Performing Lab: [facility] [place] [address] [place] [facility] LIPID PANEL,NON -FASTING CHOLESTEROL IN HDL [MASS/VOLUM E] IN SERUM OR PLASMA 54 mg/dL 40 10/23 Specimen Type: PLASMA No comment entered. Ordering Provider: NONA PAULINO Report Released Date/Time: Jul 28, 2023 11:33 PM Reporting Lab: [facility] [place] [address] Performing Lab: [facility] [place] [address] [place] [facility] LIPID PANEL,NON -FASTING CHOLESTEROL IN LDL [MASS/VOLUM E] IN SERUM OR PLASMA BY CALCULATION 84 mg/dL <99 - 99 10/23 Specimen Type: PLASMA No comment entered. Ordering Provider: NONA PAULINO Report Released Date/Time: Jul 28, 2023 11:33 PM Reporting Lab: [facility] [place] [address] Performing Lab: [facility] [place] [address] [place] [facility] LIPID PANEL,NON -FASTING CHOLESTEROL IN VLDL [MASS/VOLUM E] IN SERUM OR PLASMA BY CALCULATION 12 mg/dL <29 - 29 10/23 Specimen Type: PLASMA No comment entered. Ordering Provider: NONA PAULINO Report Released Date/Time: Jul 28, 2023 11:33 PM Reporting Lab: [facility] [place] [address] Performing Lab: [facility] [place] [address] [place] [facility] LIPID PANEL,NON -FASTING CHOLESTEROL NON HDL [MASS/VOLUM E] IN SERUM OR PLASMA 96 mg/dL <129 - 129 10/23 Specimen Type: PLASMA No comment entered. Ordering Provider: NONA PAULINO Report Released Date/Time: Jul 28, 2023 11:33 PM Reporting Lab: [facility] [place] [address] Performing Lab: [facility] [place] [address] [place] [facility] LIPID PANEL,NON -FASTING TRIGLYCERID E [MASS/VOLUM E] IN SERUM OR PLASMA 60 mg/dL <149 - 149 10/23 Specimen Type: PLASMA No comment entered. Ordering Provider: NONA PAULINO Report Released Date/Time: Jul 28, 2023 11:33 PM Reporting Lab: [facility] [place] [address] Performing Lab: [facility] [place] [address] [place] [facility] B 12 COBALAMIN (VITAMIN B12) [MASS/VOLUM E] IN SERUM OR PLASMA 316 pg/mL 213 - 816 10/23 Specimen Type: SERUM No comment entered. Ordering Provider: NONA PAULINO Report Released Date/Time: Jul 28, 2023 11:33 PM Reporting Lab: [facility] [place] [address] Performing Lab: [facility] [place] [address] [place] [facility] FOLATE FOLATE [MASS/VOLUM E] IN SERUM OR PLASMA 8.1 ng/mL 7.0 10/23 Specimen Type: SERUM No comment entered. Ordering Provider: NONA PAULINO Report Released Date/Time: Jul 28, 2023 11:33 PM Reporting Lab: [facility] [place] [address] Performing Lab: [facility] [place] [address] [place] [facility] BASIC METABOLIC PANEL+MG CREATININE [MASS/VOLUM E] IN SERUM OR PLASMA 1.0 mg/dL 0.7 - 1.2 10/23 Specimen Type: PLASMA No comment entered. Ordering Provider: NONA PAULINO Report Released Date/Time: Jul 28, 2023 11:33 PM Reporting Lab: [facility] [place] [id number] Performing Lab: [facility] [place] [id number] [place] [facility] BASIC METABOLIC PANEL+MG UREA NITROGEN [MASS/VOLUM E] IN SERUM OR PLASMA 23 mg/dL 8 - 26 10/23 Specimen Type: PLASMA No comment entered. Ordering Provider: NONA PAULINO Report Released Date/Time: Jul 28, 2023 11:33 PM Reporting Lab: [facility] [place] [id number] Performing Lab: [facility] [place] [address] [place] [facility] BASIC METABOLIC PANEL+MG GLUCOSE [MASS/VOLUM E] IN SERUM OR PLASMA 86 mg/dL 70 - 100 10/23 Specimen Type: PLASMA No comment entered. Ordering Provider: NONA PAULINO Report Released Date/Time: Jul 28, 2023 11:33 PM Reporting Lab: [facility] [place] [id number] Performing Lab: [facility] [place] [address] [place] [facility] BASIC METABOLIC PANEL+MG SODIUM [MOLES/VOLU ME] IN SERUM OR PLASMA 141 mmol/L 136 - 145 10/23 Specimen Type: PLASMA No comment entered. Ordering Provider: NONA PAULINO Report Released Date/Time: Jul 28, 2023 11:33 PM Reporting Lab: [facility] [facility] [place] [address] Performing Lab: [facility] [place] [address] [place] [facility] BASIC METABOLIC PANEL+MG POTASSIUM [MOLES/VOLU ME] IN SERUM OR PLASMA 4.7 mmol/L 3.5 - 5.1 10/23 Specimen Type: PLASMA No comment entered. Ordering Provider: NONA PAULINO Report Released Date/Time: Jul 28, 2023 11:33 PM Reporting Lab: [facility] [place] [address] Performing Lab: [facility] [place] [address] [place] [facility] BASIC METABOLIC PANEL+MG CHLORIDE [MOLES/VOLU ME] IN SERUM OR PLASMA 108 mmol/L 98 - 107 10/23 H Specimen Type: PLASMA No comment entered. Ordering Provider: NONA PAULINO Report Released Date/Time: Jul 28, 2023 11:33 PM Reporting Lab: [facility] [place] [address] Performing Lab: [facility] [place] [address] [place] [facility] BASIC METABOLIC PANEL+MG CARBON DIOXIDE, TOTAL [MOLES/VOLU ME] IN SERUM OR PLASMA 25 mmol/L 22 - 29 10/23 Specimen Type: PLASMA No comment entered. Ordering Provider: NONA PAULINO Report Released Date/Time: Jul 28, 2023 11:33 PM Reporting Lab: [facility] [place] [address] Performing Lab: [facility] [place] [address] [place] [facility] BASIC METABOLIC PANEL+MG CALCIUM [MASS/VOLUM E] IN SERUM OR PLASMA 9.6 mg/dL 8.4 - 10.2 10/23 Specimen Type: PLASMA No comment entered. Ordering Provider: NONA PAULINO Report Released Date/Time: Jul 28, 2023 11:33 PM Reporting Lab: [facility] [place] [address] Performing Lab: [facility] [place] [address] [place] [facility] BASIC METABOLIC PANEL+MG MAGNESIUM [MASS/VOLUM E] IN SERUM OR PLASMA 2.0 mg/dL 1.6 - 2.6 10/23 Specimen Type: PLASMA No comment entered. Ordering Provider: NONA PAULINO Report Released Date/Time: Jul 28, 2023 11:33 PM Reporting Lab: [facility] [place] [address] Performing Lab: [facility] [place] [address] [place] [facility] BASIC METABOLIC PANEL+MG ANION GAP IN SERUM OR PLASMA 8 mmol/L 5 - 15 10/23 Specimen Type: PLASMA No comment entered. Ordering Provider: NONA PAULINO Report Released Date/Time: Jul 28, 2023 11:33 PM Reporting Lab: [facility] [place] [address] Performing Lab: [facility] [place] [address] [place] [facility] BASIC METABOLIC PANEL+MG GLOMERULAR FILTRATION RATE/1.73 SQ M.PREDICTED [VOLUME RATE/AREA] IN SERUM, PLASMA OR BLOOD BY CREATININE- BASED FORMULA (CKD-EPI 2020) 73 60 10/23 Specimen Type: PLASMA No comment entered. Ordering Provider: NONA PAULINO Report Released Date/Time: Jul 28, 2023 11:33 PM Reporting Lab: [facility] [place] [address] Performing Lab: [facility] [place] [address] [place] [facility] CBC LEUKOCYTES [#/VOLUME] IN BLOOD BY AUTOMATED COUNT 7.64 10*3/u L 4.0 - 11.0 10/23 Specimen Type: BLOOD No comment entered. Ordering Provider: NONA PAULINO Report Released Date/Time: Jul 28, 2023 11:33 PM Reporting Lab: [facility] [place] [address] Performing Lab: [facility] [place] [address] [place] [facility] CBC ERYTHROCYTE S [#/VOLUME] IN BLOOD BY AUTOMATED COUNT 4.19 10*6/u L 4.6 - 6.2 10/23 L Specimen Type: BLOOD No comment entered. Ordering Provider: NONA PAULINO Report Released Date/Time: Jul 28, 2023 11:33 PM Reporting Lab: [facility] [place] [address] Performing Lab: [facility] [place] [address] [place] [facility] CBC HEMOGLOBIN [MASS/VOLUM E] IN BLOOD 12.9 g/dL 13.5 - 17.9 10/23 L Specimen Type: BLOOD No comment entered. Ordering Provider: NONA PAULINO Report Released Date/Time: Jul 28, 2023 11:33 PM Reporting Lab: [facility] [place] [address] Performing Lab: [facility] [place] [address] [place] [facility] CBC HEMATOCRIT [VOLUME FRACTION] OF BLOOD BY AUTOMATED COUNT 39.5 41 - 54 10/23 L Specimen Type: BLOOD No comment entered. Ordering Provider: NONA PAULINO Report Released Date/Time: Jul 28, 2023 11:33 PM Reporting Lab: [facility] [place] [address] Performing Lab: [facility] [place] [address] [place] [facility] CBC MCV [ENTITIC VOLUME] BY AUTOMATED COUNT 94.3 fL 80 - 100 10/23 Specimen Type: BLOOD No comment entered. Ordering Provider: NONA PAULINO Report Released Date/Time: Jul 28, 2023 11:33 PM Reporting Lab: [facility] [place] [address] Performing Lab: [facility] [place] [address] [place] [facility] CBC MCH [ENTITIC MASS] BY AUTOMATED COUNT 30.8 pg 27 - 33 10/23 Specimen Type: BLOOD No comment entered. Ordering Provider: NONA PAULINO Report Released Date/Time: Jul 28, 2023 11:33 PM Reporting Lab: [facility] [place] [address] Performing Lab: [facility] [place] [address] [facility] CBC MCHC [MASS/VOLUM E] BY AUTOMATED COUNT 32.7 g/dL 32.0 - 37.5 10/23 Specimen Type: BLOOD No comment entered. Ordering Provider: NONA PAULINO Report Released Date/Time: Jul 28, 2023 11:33 PM Reporting Lab: [facility] [place] [address] Performing Lab: [facility] [place] [address] [place] [facility] CBC PLATELETS [#/VOLUME] IN BLOOD BY AUTOMATED COUNT 213 10*3/u L 150 - 400 10/23 Specimen Type: BLOOD No comment entered. Ordering Provider: NONA PAULINO Report Released Date/Time: Jul 28, 2023 11:33 PM Reporting Lab: [facility] [place] [address] Performing Lab: [facility] [place] [address] [place] [facility] CBC PLATELET MEAN VOLUME [ENTITIC VOLUME] IN BLOOD BY AUTOMATED COUNT 9.1 fL 7.4 - 10.4 10/23 Specimen Type: BLOOD No comment entered. Ordering Provider: NONA PAULINO Report Released Date/Time: Jul 28, 2023 11:33 PM Reporting Lab: [facility] [place] [address] Performing Lab: [facility] [place] [address] [place] [facility] CBC ERYTHROCYTE DISTRIBUTIO N WIDTH [RATIO] BY AUTOMATED COUNT 13.7 11.5 - 14.5 10/23 Specimen Type: BLOOD No comment entered. Ordering Provider: NONA PAULINO Report Released Date/Time: Jul 28, 2023 11:33 PM Reporting Lab: [facility] [place] [address] Performing Lab: [facility] [place] [address] [place] [facility] IRON GROUP IRON [MASS/VOLUM E] IN SERUM OR PLASMA 83 ug/dL 65 - 175 10/23 Specimen Type: SERUM No comment entered. Ordering Provider: NONA PAULINO Report Released Date/Time: Jul 28, 2023 11:33 PM Reporting Lab: [facility] [place] [address] Performing Lab: [facility] [place] [address] [place] [facility] IRON GROUP IRON BINDING CAPACITY [MASS/VOLUM E] IN SERUM OR PLASMA 285 ug/dL 250 - 425 10/23 Specimen Type: SERUM No comment entered. Ordering Provider: NONA PAULINO Report Released Date/Time: Jul 28, 2023 11:33 PM Reporting Lab: [facility] [place] [address] Performing Lab: [facility] [place] [address] [place] [facility] IRON GROUP FERRITIN [MASS/VOLUM E] IN SERUM OR PLASMA 150.3 ng/mL 21.8 - 274.7 10/23 Specimen Type: SERUM No comment entered. Ordering Provider: NONA PAULINO Report Released Date/Time: Jul 28, 2023 11:33 PM Reporting Lab: [facility] [place] [address] Performing Lab: [facility] [place] [address] [place] [facility] IRON GROUP IRON SATURATION 29 20 - 50 10/23 Specimen Type: SERUM No comment entered. Ordering Provider: NONA PAULINO Report Released Date/Time: Jul 28, 2023 11:33 PM Reporting Lab: [facility] [place] [address] Performing Lab: [facility] [place] [address] [place] [facility] IRON GROUP TRANSFERRIN [MASS/VOLUM E] IN SERUM OR PLASMA 228 mg/dL 163 - 382 10/23 Specimen Type: SERUM No comment entered. Ordering Provider: NONA PAULINO Report Released Date/Time: Jul 28, 2023 11:33 PM Reporting Lab: [facility] [place] [address] Performing Lab: [facility] [place] [address] [facility] HEMOGLOBI N A1C HEMOGLOBIN A1C/HEMOGLO BIN.TOTAL IN [...] September 06, 2023 02:05 PM Reporting Lab: [facility] [place] [address] Performing Lab: [facility] [place] [address] [facility] TSH W/REFLEX TO FREE T4 THYROTROPIN [UNITS/VOLU [...] September 06, 2023 02:05 PM Reporting Lab: [facility] [place] [address] Performing Lab: [facility] [place] [address] [facility] CBC LEUKOCYTES [#/VOLUME] IN BLOOD BY AUTOMATED COUNT 6.22 10*3/u L 4.0 - 11.0 09/05 Specimen Type: BLOOD No comment entered. Ordering Provider: JOSEFINA PULIDO Report Released Date/Time: September 06, 2023 02:05 PM Reporting Lab: [facility] [place] [address] Performing Lab: [facility] [place] [address] [facility] CBC ERYTHROCYTE S [#/VOLUME] IN BLOOD BY AUTOMATED COUNT 4.19 10*6/u L 4.6 - 6.2 09/05 L Specimen Type: BLOOD No comment entered. Ordering Provider: JOSEFINA PULIDO Report Released Date/Time: September 06, 2023 02:05 PM Reporting Lab: [facility] [place] [address] Performing Lab: [facility] [place] [address] [facility] CBC HEMOGLOBIN [MASS/VOLUM E] IN BLOOD 13.3 g/dL 13.5 - 17.9 09/05 L Specimen Type: BLOOD No comment entered. Ordering Provider: JOSEFINA PULIDO Report Released Date/Time: September 06, 2023 02:05 PM Reporting Lab: [facility] [place] [address] Performing Lab: [facility] [place] [address] [facility] CBC HEMATOCRIT [VOLUME FRACTION] OF BLOOD BY AUTOMATED COUNT 39.0 41 - 54 09/05 L Specimen Type: BLOOD No comment entered. Ordering Provider: JOSEFINA PULIDO Report Released Date/Time: September 06, 2023 02:05 PM Reporting Lab: [facility] [place] [address] Performing Lab: [facility] [place] [address] [facility] CBC MCV [ENTITIC VOLUME] BY AUTOMATED COUNT 93.1 fL 80 - 100 09/05 Specimen Type: BLOOD No comment entered. Ordering Provider: JOSEFINA PULIDO Report Released Date/Time: September 06, 2023 02:05 PM Reporting Lab: [facility] [place] [address] Performing Lab: [facility] [place] [address] [place] [facility] CBC MCH [ENTITIC MASS] BY AUTOMATED COUNT 31.7 pg 27 - 33 09/05 Specimen Type: BLOOD No comment entered. Ordering Provider: JOSEFINA PULIDO Report Released Date/Time: September 06, 2023 02:05 PM Reporting Lab: [facility] [place] [address] Performing Lab: [facility] [place] [address] [place] [facility] CBC MCHC [MASS/VOLUM E] BY AUTOMATED COUNT 34.1 g/dL 32.0 - 37.5 09/05 Specimen Type: BLOOD No comment entered. Ordering Provider: JOSEFINA PULIDO Report Released Date/Time: September 06, 2023 02:05 PM Reporting Lab: [facility] [place] [address] Performing Lab: [facility] [place] [address] [facility] CBC PLATELETS [#/VOLUME] IN BLOOD BY AUTOMATED COUNT 207 10*3/u L 150 - 400 09/05 Specimen Type: BLOOD No comment entered. Ordering Provider: JOSEFINA PULIDO Report Released Date/Time: September 06, 2023 02:05 PM Reporting Lab: [facility] [place] [address] Performing Lab: [facility] [place] [address] [place] [facility] CBC PLATELET MEAN VOLUME [ENTITIC VOLUME] IN BLOOD BY AUTOMATED COUNT 9.2 fL 7.4 - 10.4 09/05 Specimen Type: BLOOD No comment entered. Ordering Provider: JOSEFINA PULIDO Report Released Date/Time: September 06, 2023 02:05 PM Reporting Lab: [facility] [place] [address] Performing Lab: [facility] [place] [address] [place] [facility] CBC ERYTHROCYTE DISTRIBUTIO N WIDTH [RATIO] BY AUTOMATED COUNT 13.5 11.5 - 14.5 09/05 Specimen Type: BLOOD No comment entered. Ordering Provider: JOSEFINA PULIDO Report Released Date/Time: September 06, 2023 02:05 PM Reporting Lab: [facility] [address] Performing Lab: [facility] [address] [place] [facility] Vital Signs Combined list of inpatient and outpatient Vital Signs from Department of Defense and Veterans Affairs, ranging from 12 months to all on record, depending upon the facility. Vital Sign Value Date Comments Source SYSTOLIC BLOOD PRESSURE 128 10/24/2023 14:33:08 [facility] DIASTOLIC BLOOD PRESSURE 68 10/24/2023 14:33:08 [facility] PULSE OXIMETRY 93 10/24/2023 14:33:08 [place] [facility] WEIGHT 268.7 10/24/2023 14:33:08 [place] [facility] BMI 42kg/m2 10/24/2023 14:33:08 [place] [facility] PAIN 0 10/24/2023 14:33:08 [place] [facility] TEMPERATURE 97.9 10/24/2023 14:33:08 [place] PULSE 76 10/24/2023 14:33:08 [place] RESPIRATION 16 10/24/2023 14:33:08 [place] [facility] SYSTOLIC BLOOD PRESSURE 138 09/06/2023 13:49:09 [facility] DIASTOLIC BLOOD PRESSURE 81 09/06/2023 13:49:09 [facility] PULSE OXIMETRY 95 09/06/2023 13:49:09 [place] [facility] WEIGHT 270.2 09/06/2023 13:49:09 [place] [facility] BMI 42kg/m2 09/06/2023 13:49:09 [facility] PAIN 0 09/06/2023 13:49:09 [facility] TEMPERATURE 97.6 09/06/2023 13:49:09 [facility] PULSE 78 09/06/2023 13:49:09 [facility] RESPIRATION 18 09/06/2023 13:49:09 [facility] SYSTOLIC BLOOD PRESSURE 143 05/17/2023 14:11:04 [facility] DIASTOLIC BLOOD PRESSURE 72 05/17/2023 14:11:04 [facility] PULSE OXIMETRY 95% 05/17/2023 14:11:04 [facility] 05/17/2023 14:11:04 [facility] HEIGHT 67 05/17/2023 14:11:04 [facility] TEMPERATURE 97.8 05/17/2023 14:11:04 [facility] PULSE 74 05/17/2023 14:11:04 [facility] RESPIRATION 18 05/17/2023 14:11:04 [facility] Encounters Combined list of: 1) Encounters from Department of [facility] facilities going back up to thelast 18 months. 2) Encounters from the Department of [facility] facilities going back up to 280 months. Location Location Details Encounter Type Encounter Number Reason For Visit Attending Provider ADM Date DC Date Status Disposition Source [facility] Outpatient Encounter [id number] 07/26 [facility] Outpatient Encounter [id number] 08/10 [facility] TTE W/DOPPLER COMPLETE [id number] Diagnos is: ICD-10- CM I42.9 Cardiom yopathy , unspeci fied
SINDY RYAN,Y S 08/10 [facility] ELECTROCAR DIOGRAM COMPLETE [id number] Diagnos is: ICD-10- CM Z13.6 Encount er for screeni ng for cardiov ascular disorde rs
YADIEL DANIELLE TT A 08/10 [facility] OFFICE O/P EST MOD 30-39 MIN [id number] Diagnos is: ICD-10- CM R42 Dizzine ss and giddine ss
GARRET MONROY 08/10 [facility] HEARING AID CHECK BOTH EARS [id number] Diagnos is: ICD-10- CM Z01.118 Encntr for exam of ears and hearing w oth abnorma l finding s
CANDICE COVARRUBIAS A 08/20 [facility] Outpatient Encounter [id number] 08[facility] Outpatient Encounter [id number] 09/03 [facility] Outpatient Encounter [id number] 09/23 [facility] OFFICE O/P EST MOD 30-39 MIN [id number] Diagnos is: ICD-10- CM R42 Dizzine ss and giddine ss
GARRET MONROY 10/01 [facility] OFF/OP CONSLTJ NEW/EST HI 55 [id number] Diagnos is: ICD-10- CM R42 Dizzine ss and giddine ss
EXCONDE,RU PERT E 10/08 [facility] ELECTROCAR DIOGRAM COMPLETE [id number] Diagnos is: ICD-10- CM Z13.6 Encount er for screeni ng for cardiov ascular disorde rs
Tyson RUIZ O 11/04 [facility] OFFICE O/P EST MOD 30-39 MIN [id number] Diagnos is: ICD-10- CM R42 Dizzine ss and giddine ss
GARRET MONROY 11/04 [facility] Outpatient Encounter [id number] 11/19 [facility] OFFICE O/P NEW MOD 45-59 MIN [id number] Diagnos is: ICD-10- CM Z13.6 Encount er for screeni ng for cardiov ascular disorde rs
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
GLADE,SAMU EL C 12/28 [facility] SELF CARE MNGMENT TRAINING [id number] Diagnos is: ICD-10- CM Z73.6 Limitat ion of activit ies due to disabil ity<br/ > RA DANYA JONES 12/30 [facility] PRO PHONE CALL 5-10 MIN [id number] Diagnos is: ICD-10- CM G47.39 Other sleep apnea<b r/> JULIAN SANCHEZ S 01/06 [facility] THERAPEUTI C EXERCISES [id number] Diagnos is: ICD-10- CM M25.512 Pain in left shoulde r
GLADE,SAMU EL C 01/11 [facility] Outpatient Encounter [id number] 01/14 [facility] OFFICE O/P EST HI 40-54 MIN [id number] Diagnos is: ICD-10- CM R42 Dizzine ss and giddine ss
NONA PAULINO 01/17 [facility] OFFICE O/P EST MOD 30-39 MIN [id number] Diagnos is: ICD-10- CM Z96.1 Presenc e of intraoc ular lens
GRAMATES,P EGGY H 01/19 [facility] HEARING AID FITTING/CH ECKING [id number] Diagnos is: ICD-10- CM Z46.1 Encount er for fitting and adjustm ent of hearing aid<br/ > TREV DE LA TORRE E 01/27 [facility] THERAPEUTI C EXERCISES [id number] Diagnos is: ICD-10- CM R26.89 Other abnorma lities of gait and mobilit y
GLADE,SAMU EL C 01/27 [facility] MANUAL THERAPY / REGIONS [id number] Diagnos is: ICD-10- CM M25.512 Pain in left shoulde r
GLADE,SAMU EL C 02/15 [facility] Outpatient Encounter [id number] 02/24 [facility] THERAPEUTI C EXERCISES [id number] Diagnos is: ICD-10- CM R26.89 Other abnorma lities of gait and mobilit y
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<br/ > BELENPATRICIA P 03/16 [facility] [place] [facility] Outpatient Encounter [id number] 03/22 [facility] [place] [facility] Outpatient Encounter [id number] 04/06 [place] [facility] [place] [facility] Outpatient Encounter [id number] 04/11 [facility] [place] [facility] Outpatient Encounter [id number] 04/11 [facility] [place] [facility] OFF/OP EST MAY X REQ PHY/QHP [id number] Diagnos is: ICD-10- CM 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
BAIRON DOWD 04/14 [facility] [place] [facility] Outpatient Encounter [id number] 04/28 [facility] [place] [facility] Outpatient Encounter [id number] 05/03 [facility] [place] [facility] ELECTROCAR DIOGRAM REPORT [id number] Diagnos is: ICD-10- CM Z13.6 Encount er for screeni ng for cardiov ascular disorde rs
MARY ALICE MA REL 05/17 [facility] OFFICE O/P EST MOD 30 MIN [id number] Diagnos is: ICD-10- CM R42 Dizzine ss and giddine ss
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<br/ > NISEAG,PATRICIA LOW P 05/18 [facility] Outpatient Encounter [id number] 05/29 [facility] Outpatient Encounter [id number] 06/01 [facility] Outpatient Encounter [id number] 06/08 [facility] ORTHC/PROS TC MGMT SBSQ ENC [id number] Diagnos is: ICD-10- CM 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
NONA PAULINO 07/27 [facility] Outpatient Encounter [id number] 08/02 [facility] OFF/OP CNSLTJ NEW/EST LOW 30 [id number] Diagnos is: ICD-10- CM R35.1 Nocturi a
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
RUBY ALVARADO 09/05 [facility] OFFICE O/P EST MOD 30 MIN [id number] Diagnos is: ICD-10- CM I49.3 Ventric ular prematu re depolar ization
GARRET MONROY 09/05 [facility] OFFICE O/P EST MOD 30 MIN [id number] Diagnos is: ICD-10- CM I49.9 Cardiac arrhyth all, unspeci fied
GARRET MONROY 09/05 [facility] ECG MONIT/REPR T UP TO 48 HRS [id number] Diagnos is: ICD-10- CM Z13.6 Encount er for screeni ng for cardiov ascular disorde rs
SHELLIMALENAELIZABETHCARINAAlva JESSICAGARRET FABBYDoreen BRISSA 09/05 [facility] Outpatient Encounter [id number] 10/23 [facility] OFFICE O/P EST HI 40 MIN [id number] Diagnos is: ICD-10- CM I49.9 Cardiac arrhyth all, unspeci fied
NONA PAULINO 10/23 [facility] Outpatient Encounter [id number] MANNY MARTINEZ 10/23 [facility] Outpatient Encounter [id number] MATHEW LOPEZ M 10/24 [facility] PRO PHONE CALL 5-10 MIN [id number] Diagnos is: ICD-10- CM G47.39 Other sleep apnea<b r/> SHONDA HERNANDEZ R 10/24 [facility] Outpatient Encounter [id number] Arnie SILVA 10/26 [facility] Outpatient Encounter [id number] Diagnos is: ICD-10- CM 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
GAURAV ALEXANDER 11/27 [facility] PRO PHONE CALL 21-30 MIN [id number] Diagnos is: ICD-10- CM G47.39 Other sleep apnea<b r/> SHONDA HERNANDEZYN R 12/12 [facility] HC PRO PHONE CALL 21-30 MIN [id number] Diagnos is: ICD-10- CM R60.9 Edema, unspeci fied
PRESTON ROTH A 12/25 [facility] OFF/OP EST MAY X REQ PHY/QHP [id number] Diagnos is: ICD-10- CM H90.3 Sensori neural hearing loss, bilater al
Doreen ARANDA PV 12/27 [facility] OFFICE O/P EST MOD 30 MIN [id number] Diagnos is: ICD-10- CM L84 Corns and callosi ties
IBETH SANDHU LARISSA 01/09 [facility] OFFICE O/P EST MOD 30 MIN [id number] Diagnos is: ICD-10- CM H04.123 Dry eye syndrom e of bilater al lacrima l glands< br/> [facility] Outpatient Encounter [id number] 01/15 [facility] Social History Combined list of available smoking, tobacco, and other social history from Department of Defense and [facility] facilities. Social History Type Response Date [facility] smoking status NHIS SC-TOBACCO QUIT 15 YRS OR MORE 10/24/2023 [facility] History of tobacco use VA-TOBACCO FORMER USER 10/24/2023 [facility] History of tobacco use VA-TOBACCO FORMER USER 01/17/2023 [facility] History of tobacco use VA-TOBACCO FORMER USER 02/01/2022 [facility] History of tobacco use VA-TOBACCO FORMER USER 02/02/2021 [facility] History of tobacco use SC-TOBACCO QUIT 1 5 YRS OR MORE 12/12/2019 [facility] History of tobacco use VA-TOBACCO FORMER USER 06/21/2018 [facility] History of tobacco use INPT NO TOBACCO U SE IN LAST 30 DAYS 09/15/2017 [facility] History of tobacco use FORMER TOBACCO US ER 7Y OR GREATER 06/29/2017 [facility] History of tobacco use INPT NO TOBACCO U SE IN LAST 30 DAYS 09/16/2016 [facility] History of tobacco use FORMER TOBACCO US ER 7Y OR GREATER 05/06/2016 [facility] History of tobacco use INPT NO TOBACCO U SE IN LAST 30 DAYS 03/24/2016 [facility] History of tobacco use FORMER TOBACCO US ER 7Y OR GREATER 06/23/2015 [facility] History of tobacco use FORMER TOBACCO US ER 7Y OR GREATER 07/04/2014 [facility] 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 Additional future care activities may be listed in the Assessment and Plan section. Date/Time Care Activity Care Activity Detail Facili ty 01/25/2024 AMBULATORY - REHAB MEDICINE AMBULATORY - REHAB MEDICINE [facility] 01/31/2024 AMBULATORY - MEDICINE AMBULATORY - MEDICI NE [facility] 02/01/2024 AMBULATORY - NONE AMBULATORY - NONE [facility] 02/01/2024 AMBULATORY - SURGERY AMBULATORY - SURGERY [facility] Advance Directives List of completed, amended, or rescinded Advance Directives on record at Department [facility] facilities. An actual copy of the Directive is not included. Date Advance Directive Provider Source 07/15/2016 ADVANCE DIRECTIVE ARIEL TREVINO [facility] 03/22/2016 CLINICAL WARNING PRUDENCIO TYLER [facility] 02/05/2011 CLINICAL WARNING LIZETH GABRIEL [facility] 12/17/2010 CLINICAL WARNING QUE CAMERON [facility] 08/26/2003 ADVANCE DIRECTIVE ELGIN HOOPER [facility]
--- OUTSIDE RECORDS SUMMARY | 2024-01-24 02:24 | XMS_ITS | Encounter Summary ---
Author Name [facility] [place] Organization [facility] [place] Address [address] [place] [address] Care Team Providers Care Fire Equipment Operator Name Role Phone NONA PAULINO [facility] Insurance Providers: All historical and [...] Mandel's Name Patient's Relationship to Policy Mandel [facility] (WNR) MEDICARE ADVANTAGE [facility] ([facility]) May 02, 2016 [id number] [phone] Duaret PANDYA PATIENT [facility] (WNR) MEDICARE ADVANTAGE [facility] (WNR) May 02, 2016 [id number] [phone] Duarte PANDYA PATIENT Selected Encounter This section includes the information on record at [place] for the Encounter. 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 Date/Time Primary/Secondary Diagnosis Diagnosis Name Provider Source Mar 16, 2023 03:43 PM PRIMARY Idiopathic progressive neuropathy BETSY GLOVER [facility] Plan of Treatment: Future Appointments (+ 6 months) and Future Tests (+/- 45 days) The Plan of Treatment section includes future care activities for the patient from all [place] treatmentfacilities. This section includes future appointments and future orders which are active, pending or scheduled. Future Appointments This section includes appointments that were scheduled to occur 6 months from the date of the Encounter, up to a maximum of 20 appointments. The data comes from all [place] treatment facilities. Appointment Date/Time Appointment Type Appointme nt Facility Name Apr 13, 2023 12:00 PM [facility] Apr 14, 2023 09:00 AM [facility] Apr 26, 2023 05:00 PM [facility] May 17, 2023 02:00 PM [facility] May 17, 2023 02:30 PM [facility] May 18, 2023 01:00 PM [facility] May 18, 2023 02:30 PM [facility] Jun 27, 2023 01:30 PM AMBULATORY - SURGERY [facility] Jul 28, 2023 11:00 AM [facility] Aug 15, 2023 02:00 PM AMBULATORY - SURGERY [facility] Aug 15, 2023 05:20 PM AMBULATORY - REHAB MEDICIN E [facility] September 06, 2023 11:00 AM AMBULATORY - SURGERY [facility] September 06, 2023 01:45 PM [facility] September 06, 2023 02:00 PM [facility] September 06, 2023 02:30 PM [facility] Social History: Smoking Status (Most current) and Tobacco Use (All prior to encounter date) This section includes the most current, and the historical, smoking and tobacco- related health factors from the [place] facility where the Encounter took place. Current Smoking Status This section includes the most current smoking, or tobacco-related health factor, from the [place] facility where the Encounter took place. Date/Time Current Smoking Status Comment Facil ity Jan 17, 2023 01:00 PM VA-TOBACCO FORMER USER [facility] Tobacco Use History This section includes a history of the smoking, or tobacco-related health factors, that were collected on or before the date of the Encounter. The data comes from the [place] facility where the Encounter took place. Date/Time Smoking Status/Tobacco Use Comment F acility Jan 17, 2023 01:00 PM VA-TOBACCO QUIT 15 YRS OR MORE [facility] Feb 01, 2022 01:00 PM VA-TOBACCO FORMER USER [facility] Feb 01, 2022 01:00 PM VA-TOBACCO QUIT 15 YRS OR MORE [facility] Feb 02, 2021 01:00 PM VA-TOBACCO FORMER USER [facility] Feb 02, 2021 01:00 PM VA-TOBACCO QUIT 15 YRS OR MORE [facility] Dec 12, 2019 01:25 PM VA-TOBACCO FORMER USER [facility] Dec 12, 2019 01:25 PM VA-TOBACCO QUIT 15 YRS OR MORE [facility] Jun 21, 2018 11:16 AM VA-TOBACCO FORMER USER [facility] Jun 21, 2018 11:16 AM VA-TOBACCO QUIT 15 YRS OR MORE [facility] September 15, 2017 05:29 AM INPT NO TOBACCO USE IN LAST 30 D [facility] Jun 29, 2017 02:21 PM FORMER TOBACCO USER 7Y OR GREATE R [facility] September 16, 2016 05:29 AM INPT NO TOBACCO USE IN LAST 30 D [facility] May 06, 2016 10:21 AM FORMER TOBACCO USER 7Y OR GREATE R [facility] Mar 24, 2016 11:54 AM INPT NO TOBACCO USE IN LAST 30 D [facility] Jun 23, 2015 10:20 AM FORMER TOBACCO USER 7Y OR GREATE R [facility] Jul 04, 2014 02:41 PM FORMER TOBACCO USER 7Y OR GREATE R [facility] Dec 23, 2010 02:12 PM LIFETIME NON-TOBACCO USER [facility] Dec 18, 2010 05:07 PM FORMER TOBACCO USER 7Y OR GREATE R [facility] May 26, 2006 02:20 PM FORMER TOBACCO USER 7Y OR GREATE R [facility] Advance Directives: All historical and current Section Date Range: From patient's date of to the date document was created. This section includes ALL of a patient's completed or amended [place] Advance and Rescinded Directives. The entries below indicate that a directive exists for the patient, but an actual copy is not included with this document. The data comes from all [place] facilities. Date Advance Directives Provider Source Jul 15, 2016 ADVANCE DIRECTIVE ARIEL TREVINO [place] [facility] Jul 15, 2016 ADVANCE DIRECTIVE DISCUSSION MAUREEN TREVINO [facility] Mar 22, 2016 CLINICAL WARNING CRISTIANOGERARDHELENDURGA [facility] Feb 05, 2011 [facility] Dec 17, 2010 CLINICAL WARNING QUE CAMERON [facility] Aug 26, 2003 ADVANCE DIRECTIVE ELGIN HOOPER [facility] Encounter Notes: All associated encounter [...] EDS. Patient was previously seen by Terrance Busatmante. Patient's shoes and socks where doffed and [...] longitudinal custom Part #: Quantity: 2 pair [facility] Code: L3010 Deliver to: [facility]/Prosthetics Department (121) Supply to be ordered: Vendor: [employer] Item description: Sona Hands-Free - Black - 11.5 Wide Part #: [id number] Quantity: 1 pair [facility] Code: L3221 Deliver to: [facility]/Prosthetics Department (121) /vincenzo/ Betsy Glover ELECTROPHYSIOLOGY TECHNICIAN Signed: 03/16/2023 15:43 Receipt Acknowledged By: 03/18/2023 08:03 /vincenzo/ MORIAH GARCIA, HAT FORMING MACHINE FEEDER CHIEF - OPPCS BETSY GLOVER [facility]
--- OUTSIDE RECORDS SUMMARY | 2024-01-24 02:24 | XMS_ITS | Encounter Summary ---
Author Name [facility] [place] [place] Organization [facility] [place] Address [address] [place] [id number] Care Team Providers Care Housekeeping Assistant Name Role Phone NONA PAULINO Primary Care Provider [facility] Insurance Providers: All historical and current [...] Mandel's Name Patient's Relationship to Policy Mandel [facility] (WNR) MEDICARE ADVANTAGE [facility] (WNR) May 02, 2016 [id number] [phone] Duarte PANDYA PATIENT [facility] (WNR) MEDICARE ADVANTAGE [facility] (WNR) May 02, 2016 [id number] [phone] Duarte PANDYA PATIENT Selected Encounter This section includes the information on record at [place] for the Encounter. Date/Time Encounter Type Encounter Description Reason Provider Source Feb 15, 2023 03:30 PM MANUAL THERAPY 1/> [facility] PHYSICAL THERAPY ICD-10-CM M25.512 Pain in left shoulder GLADE,DARA C IHE Encounter Template Text not used by [place] Assessments - Encounter Diagnoses This section includes the primary and secondary diagnoses documented for the Encounter. Date/Time Primary/Secondary Diagnosis Diagnosis Name Provider Source Feb 15, 2023 04:58 PM PRIMARY Pain in left shoulder DARA CÁRDENAS [facility] Feb 15, 2023 04:58 PM SECONDARY Other abnormalities of gait and mobility DARA CÁRDENAS [facility] Plan of Treatment: Future Appointments (+ 6 months) and Future Tests (+/- 45 days) The Plan of Treatment section includes future care activities for the patient from all [place] [facility] This section includes future appointments and future orders which are active, pending or scheduled. Future Appointments This section includes appointments that were scheduled to occur 6 months from the date of the Encounter, up to a maximum of 20 appointments. The data comes from all [place] treatment facilities. Appointment Date/Time Appointment Type Appointme nt Facility Name Mar 09, 2023 02:30 PM AMBULATORY - REHAB [facility] Mar 10, 2023 11:30 AM [facility] [place] [facility] Mar 16, 2023 02:30 PM [facility]ORY - NONE [place] [facility] Apr 13, 2023 12:00 PM [facility]ORY - NONE [place] [facility] Apr 14, 2023 09:00 AM [facility] - [place]ONE [place] [facility] Apr 26, 2023 05:00 PM [facility]ORY - [place]ONE [place] [facility] May 17, 2023 02:00 PM [place]IC[place] [facility] May 17, 2023 02:30 PM [place] [facility] May 18, 2023 01:00 PM [facility] [place] [facility] May 18, 2023 02:30 PM [facility] - [facility] [facility] Jun 27, 2023 01:30 PM [place] [facility] Jul 28, 2023 11:00 AM [facility] Aug 15, 2023 02:00 PM AMBULATORY - SURGERY [facility] Aug 15, 2023 05:20 [facility] Social History: Smoking Status (Most [...] 17, 2023 01:00 PM VA-TOBACCO FORMER USER [facility] Tobacco Use History This section includes a history of the smoking, or tobacco-related health factors, that were collected on or before the date of the Encounter. The data comes from the [place] facility where the Encounter took place. Date/Time Smoking Status/Tobacco Use Comment F acility Jan 17, 2023 01:00 PM VA-TOBACCO QUIT 15 YRS OR MORE [facility] Feb 01, 2022 01:00 PM VA-TOBACCO FORMER USER [facility] Feb 01, 2022 01:00 PM VA-TOBACCO QUIT 15 YRS OR MORE [facility] Feb 02, 2021 01:00 PM VA-TOBACCO FORMER USER [facility] Feb 02, 2021 01:00 PM VA-TOBACCO QUIT 15 YRS OR MORE [facility] Dec 12, 2019 01:25 PM VA-TOBACCO FORMER USER [facility] Dec 12, 2019 01:25 PM VA-TOBACCO QUIT 15 YRS OR MORE [facility] Jun 21, 2018 11:16 AM VA-TOBACCO FORMER USER [facility] Jun 21, 2018 11:16 AM VA-TOBACCO QUIT 15 YRS OR MORE [facility] September 15, 2017 05:29 AM INPT NO TOBACCO USE IN LAST 30 D [facility] Jun 29, 2017 02:21 PM FORMER TOBACCO USER 7Y OR GREATE R [facility] September 16, 2016 05:29 AM INPT NO TOBACCO USE IN LAST 30 D [facility] May 06, 2016 10:21 AM FORMER TOBACCO USER 7Y OR GREATE R [facility] Mar 24, 2016 11:54 AM INPT NO TOBACCO USE IN LAST 30 D [facility] Jun 23, 2015 10:20 AM FORMER TOBACCO USER 7Y OR GREATE R [facility] Jul 04, 2014 02:41 PM FORMER TOBACCO USER 7Y OR GREATE R [facility] Dec 23, 2010 02:12 PM LIFETIME NON-TOBACCO USER [facility] Dec 18, 2010 05:07 PM FORMER TOBACCO USER 7Y OR GREATE R [facility] May 26, 2006 02:20 PM FORMER TOBACCO USER 7Y OR GREATE R [facility] Advance Directives: All historical and current [...] 2016 ADVANCE DIRECTIVE DISCUSSION MAUREEN TREVINO [place] [facility] Jul 15, 2016 ADVANCE DIRECTIVE ARIEL TREVINO [place] [facility] Mar 22, 2016 CLINICAL WARNING CRISTIANOGERARDHELENDURGA [place] [facility] Feb 05, 2011 CLINICAL WARNING LIZETH GABRIEL [facility] Dec 17, 2010 CLINICAL WARNING KEMALQUE WATT [facility] Aug 26, 2003 ADVANCE DIRECTIVE ELGIN [facility] Encounter Notes: All associated encounter notes [...] of VISITS: 4 # of CX/NS: 0 [place] Screen Due: NO Name Used: Killian SUBJECTIVE: Relevant PMH/personal factors impacting rehab: HTN, obesity, Asthma, cardiomyopathy, arrhythmia, dizziness, A-fib, COPD Chief Concern: Pt is a 87 year old Zullinger who presents to PT with concerns for L shoulder pain, vertigo, and leg issues/weakness. 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 Pt felt like he never got his balance back from vertigo issues. Feels woozy when he gets up on his feet. States he has no ambition to be active. Had appt at foot clinic in [facility] d/t ongoing foot problems. Had a [...] obtained for interventions Ther Ex Access Code: [email or web address] URL: [email or web address] Date: 02/15/2023 Prepared by: Dara Cárdenas Exercises [...] considered a safe community ambulator. ONGOING ASSESSMENT: Zullinger is a 87 y/o M presenting to [...] act, manual therapy prn and patient education. Zullinger agreeable to follow up in clinic in [...] PHYSICAL THERAPIST Signed: 02/15/2023 16:58 DARA CÁRDENAS [facility]
--- OUTSIDE RECORDS SUMMARY | 2024-01-24 02:24 | XMS_ITS | Encounter Summary ---
Author Name [facility] [place] Address [address] [place] [address] Care Team Providers Care Fuel System Maintenance Supervisor Name Role Phone NONA PAULINO Primary Care Provider Unavaila [facility] Insurance Providers: All historical and current Section [...] Relationship to Policy Mandel [facility] (WNR) MEDICARE ADVANTAGE [facility] (WNR) May 02, 2016 [id number] [phone] Duarte PANDYA PATIENT [facility] (WNR) MEDICARE ADVANTAGE [facility] (WNR) May 02, 2016 [id number] [phone] Duarte PANDYA PATIENT Selected Encounter This section includes the information on record at [place] for the Encounter. Date/Time Encounter Type Encounter Description Reason Provider Source Jan 27, 2023 03:30 PM THERAPEUTIC EXERCISES PHYSICAL THERAPY ICD-10-CM R26.89 Other abnormalities of gait and mobility DARA CÁRDENAS Encounter Template Text not used by [place] Assessments - Encounter Diagnoses This section includes the primary and secondary diagnoses documented for the Encounter. Date/Time Primary/Secondary Diagnosis Diagnosis Name Provider Source Jan 27, 2023 04:28 PM PRIMARY Other abnormalities of gait and mobility DARA CÁRDENSA [facility] Jan 27, 2023 04:28 PM SECONDARY Pain in left shoulder DARA CÁRDENAS [facility] Plan of Treatment: Future Appointments (+ 6 months) and Future Tests (+/- 45 days) The Plan of Treatment section includes future care activities for the patient from all [place] [facility] This section includes future appointments and future orders which are active, pending or scheduled. Future Appointments This section includes appointments that were scheduled to occur 6 months from the date of the Encounter, up to a maximum of 20 appointments. The data comes from all [place] treatment facilities. Appointment Date/Time Appointment Type Appointme nt Facility Name Feb 15, 2023 03:30 PM AMBULATORY - REHAB MEDICIN E [facility] Mar 09, 2023 02:30 PM AMBULATORY - REHAB MEDICIN E [facility] Mar 10, 2023 11:30 AM [place] [facility] Mar 16, 2023 02:30 PM [place] [facility] Apr 13, 2023 12:00 PM [place] [facility] Apr 14, 2023 09:00 AM [place] [facility] Apr 26, 2023 05:00 PM [place] [facility] May 17, 2023 02:00 PM [place] [facility] May 17, 2023 02:30 PM [place] [facility] May 18, 2023 01:00 PM [place] [facility] May 18, 2023 02:30 PM [place] [facility] Jun 27, 2023 01:30 PM [place] [facility] Jul 28, 2023 11:00 AM [place] [facility] Social History: Smoking Status (Most current) and Tobacco Use (All prior to encounter date) This section includes the most current, and the historical, smoking and tobacco- related health factors from the [place] facility where the Encounter took place. Current Smoking Status This section includes the most current smoking, or tobacco-related health factor, from the [place] facility where the Encounter took place. Date/Time Current Smoking Status Comment Facil ity Jan 17, 2023 01:00 PM VA-TOBACCO FORMER USER [facility] Tobacco Use History This section includes a history of the smoking, or tobacco-related health factors, that were collected on or before the date of the Encounter. The data comes from the [place] facility where the Encounter took place. Date/Time Smoking Status/Tobacco Use Comment F acility Jan 17, 2023 01:00 PM VA-TOBACCO QUIT 15 YRS OR MORE [facility] Feb 01, 2022 01:00 PM VA-TOBACCO FORMER USER [facility] Feb 01, 2022 01:00 PM VA-TOBACCO QUIT 15 YRS OR MORE [facility] Feb 02, 2021 01:00 PM VA-TOBACCO FORMER USER [facility] Feb 02, 2021 01:00 PM VA-TOBACCO QUIT 15 YRS OR MORE [facility] Dec 12, 2019 01:25 PM VA-TOBACCO FORMER USER [facility] Dec 12, 2019 01:25 PM VA-TOBACCO QUIT 15 YRS OR MORE [facility] Jun 21, 2018 11:16 AM VA-TOBACCO FORMER USER [facility] Jun 21, 2018 11:16 AM VA-TOBACCO QUIT 15 YRS OR MORE [facility] September 15, 2017 05:29 AM INPT NO TOBACCO USE IN LAST 30 D [facility] Jun 29, 2017 02:21 PM FORMER TOBACCO USER 7Y OR GREATE R [facility] September 16, 2016 05:29 AM INPT NO TOBACCO USE IN LAST 30 D [facility] May 06, 2016 10:21 AM FORMER TOBACCO USER 7Y OR GREATE R [facility] Mar 24, 2016 11:54 AM INPT NO TOBACCO USE IN LAST 30 D [facility] Jun 23, 2015 10:20 AM FORMER TOBACCO USER 7Y OR GREATE R [facility] Jul 04, 2014 02:41 PM FORMER TOBACCO USER 7Y OR GREATE R [facility] Dec 23, 2010 02:12 PM LIFETIME NON-TOBACCO USER [facility] Dec 18, 2010 05:07 PM FORMER TOBACCO USER 7Y OR GREATE R [facility] May 26, 2006 02:20 PM FORMER TOBACCO USER 7Y OR GREATE R [facility] Advance Directives: All historical and current Section Date Range: From patient's date of to the date document was created. This section includes ALL of a patient's completed or amended [place] Advance and Rescinded Directives. The entries below indicate that a directive exists for the patient, but an actual copy is not included with this document. The data comes from all [place] facilities. Date Advance Directives Provider Source Jul 15, 2016 ADVANCE DIRECTIVE ARIEL TREVINO [facility] Jul 15, 2016 ADVANCE DIRECTIVE DISCUSSION MAUREEN TREVINO [facility] Mar 22, 2016 CLINICAL WARNING PRUDENCIO [facility] Feb 05, 2011 CLINICAL WARNING LIZETH GABRIEL [facility] Dec 17, 2010 CLINICAL WARNING QUE CAMERON [facility] Aug 26, 2003 ADVANCE DIRECTIVE ELGIN HOOPER [facility] Radiology Reports: +/- 30 days of [...] the Encounter. The data comes from all [place] treatment facilities. Date/Time Radiology Report Provider Source Jan 14, 2023 02:16 PM SEGMENTALS/ELAYNE: NANDA PANDYA [id number] -[id number] M Ex Date: JAN 14, 2023@14:16 Req Phys: NONA PAULINO Loc: [facility] PACT ADELAIDA PHONE (Req'g Loc) Img Loc: VASCULAR LAB PROCEDURES Service: Unknown (Case [id number] COMPLETE) SEGMENTALS/ELAYNE (VAS Detailed) CPT:54181 Reason for Study: Concern for decreased blood flow in feet Clinical History: Please note that this study requires a 60min apt. time. [place] IS NOT under investigation for COVID-19 or is COVID-19 negative Concern for decreased blood flow in both feet per [facility] podiatry. Responsible provider name and phone number to notify for critical findings if other than user placing the order and pager listed below: User placing orders pager: [phone] LAST CREATININE 1.0 (06/08/22) Report Status: Verified Date Reported: JAN 14, 2023 Date Verified: JAN 14, 2023 Mold Blower E-Sig:/ES/ADORE MOE MD Report: Bilateral Lower Extremity [...] Primary Interpreting Staff: ADORE MOE MD, RADIOLOGIST (Mold Blower) Primary Interpreting Resident: ADORE ROBINS, , PAPER SLITTER /ADORE SCHMIDT [facility] Encounter Notes: All associated encounter [...] of VISITS: 3 # of CX/NS: 0 Evangeline Screen Due: NO Name Used: Killian SUBJECTIVE: Relevant PMH/personal factors impacting rehab: HTN, obesity, Asthma, cardiomyopathy, arrhythmia, dizziness, A-fib, COPD Chief Concern: Pt is a 87 year old [place] who presents to PT with concerns for L shoulder pain, vertigo, and leg issues/weakness. 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 Pt felt like he never got his balance back from vertigo issues. Feels woozy when he gets up on his feet. States he has no ambition to be active. Had appt at foot clinic in [facility] d/t ongoing foot problems. Had a [...] obtained for interventions Ther Ex Access Code: [email or web address] URL: [email or web address] Date: 01/11/2023 Prepared by: Dara Cárdenas Exercises [...] considered a safe community ambulator. ONGOING ASSESSMENT: [place] is a 87 y/o M presenting to [...] act, manual therapy prn and patient education. agreeable to follow up in clinic in [...] PHYSICAL THERAPIST Signed: 01/27/2023 16:28 DARA CÁRDENAS [facility]
--- OUTSIDE RECORDS SUMMARY | 2024-01-24 02:24 | XMS_ITS | Encounter Summary ---
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 Name Role Phone NONA PAULINO Primary Care Provider Unavaila [facility] Insurance Providers: All historical and current [...] Mandel's Name Patient's Relationship to Policy Mandel [facility] (WNR) MEDICARE ADVANTAGE [facility] (WNR) May 02, 2016 [id number] [phone] Duarte PANDYA PATIENT [facility] (WNR) MEDICARE ADVANTAGE [facility] (WNR) May 02, 2016 [id number] [phone] Duarte PANDYA PATIENT Selected Encounter This section includes the information on record at [place] for the Encounter. Date/Time Encounter Type Encounter Description Reason Provider Source Mar 09, 2023 02:30 PM THERAPEUTIC EXERCISES PHYSICAL THERAPY ICD-10-CM R26.89 Other abnormalities of gait and mobility DARA CÁRDENAS Encounter Template Text not used by [place] Assessments - Encounter Diagnoses This section includes the primary and secondary diagnoses documented for the Encounter. Date/Time Primary/Secondary Diagnosis Diagnosis Name Provider Source Mar 09, 2023 03:01 PM PRIMARY Other abnormalities of gait and mobility DARA CÁRDENAS [facility] Mar 09, 2023 03:01 PM SECONDARY Pain in left shoulder DARA CÁRDENAS [facility] Plan of Treatment: Future Appointments (+ 6 months) and Future Tests (+/- 45 days) The Plan of Treatment section includes future care activities for the patient [facility] [place] [facility] This section includes future appointments and [...] 11:30 AM [place] [facility] Mar 16, 2023 02:30 PM [place]ORY - [place] [facility] Apr 13, 2023 12:00 PM [place]ORY - [place] [facility] Apr 14, 2023 09:00 AM [place]ORY - [place] [facility] Apr 26, 2023 05:00 PM [place]UL[place]ORY - [place]ONE [place] [facility] May 17, 2023 02:00 PM [place]ORY [place]IC[place] [facility] May 17, 2023 02:30 PM [place] [facility] May 18, 2023 01:00 PM [place]ORY [place] [facility] May 18, 2023 02:30 PM [place]ORY [place] [facility] Jun 27, 2023 01:30 PM [place] [facility] Jul 28, 2023 11:00 AM [place] [facility] Aug 15, 2023 02:00 PM [place] [facility] Aug 15, 2023 05:20 PM AMBULATORY - REHAB MEDICIN E [facility] September 06, 2023 11:00 AM [place] [facility] September 06, 2023 01:45 PM [place]ORY [place]IC[place] [facility] September 06, 2023 02:00 PM [place] [facility] September 06, 2023 02:30 PM [place]ORY - [place]ICINE [place] [facility] Social History: Smoking Status (Most current) and [...] 17, 2023 01:00 PM VA-TOBACCO FORMER USER [facility] Tobacco Use History This section includes a history of the smoking, or tobacco-related health factors, that were collected on or before the date of the Encounter. The data comes from the [place] facility where the Encounter took place. Date/Time Smoking Status/Tobacco Use Comment F acility Jan 17, 2023 01:00 PM VA-TOBACCO QUIT 15 YRS OR MORE [facility] Feb 01, 2022 01:00 PM VA-TOBACCO FORMER USER [facility] Feb 01, 2022 01:00 PM VA-TOBACCO QUIT 15 YRS OR MORE [facility] Feb 02, 2021 01:00 PM VA-TOBACCO FORMER USER [facility] Feb 02, 2021 01:00 PM VA-TOBACCO QUIT 15 YRS OR MORE [facility] Dec 12, 2019 01:25 PM VA-TOBACCO FORMER USER [facility] Dec 12, 2019 01:25 PM VA-TOBACCO QUIT 15 YRS OR MORE [facility] Jun 21, 2018 11:16 AM VA-TOBACCO FORMER USER [facility] Jun 21, 2018 11:16 AM VA-TOBACCO QUIT 15 YRS OR MORE [facility] September 15, 2017 05:29 AM INPT NO TOBACCO USE IN LAST 30 D [facility] Jun 29, 2017 02:21 PM FORMER TOBACCO USER 7Y OR GREATE R [facility] September 16, 2016 05:29 AM INPT NO TOBACCO USE IN LAST 30 D [facility] May 06, 2016 10:21 AM FORMER TOBACCO USER 7Y OR GREATE R [facility] Mar 24, 2016 11:54 AM INPT NO TOBACCO USE IN LAST 30 D [facility] Jun 23, 2015 10:20 AM FORMER TOBACCO USER 7Y OR GREATE R [facility] Jul 04, 2014 02:41 PM FORMER TOBACCO USER 7Y OR GREATE R [facility] Dec 23, 2010 02:12 PM LIFETIME NON-TOBACCO USER [facility] Dec 18, 2010 05:07 PM FORMER TOBACCO USER 7Y OR GREATE R [facility] May 26, 2006 02:20 PM FORMER TOBACCO USER 7Y OR GREATE R [facility] Advance Directives: All historical [...] 15, 2016 ADVANCE DIRECTIVE DISCUSSION MAUREEN TREVINO [facility] Jul 15, 2016 ADVANCE DIRECTIVE ARIEL TREVINO [facility] Mar 22, 2016 CLINICAL WARNING PRUDENCIO TYLER [facility] Feb 05, 2011 CLINICAL WARNING LIZETH GABRIEL [facility] Dec 17, 2010 CLINICAL WARNING [facility] Aug 26, 2003 ADVANCE DIRECTIVE ELGIN HOOPER [facility] Encounter Notes: All [...] of VISITS: 5 # of CX/NS: 0 [place] Screen Due: NO Name Used: Killian SUBJECTIVE: [...] Had appt at foot [facility] d/t ongoing foot problems. Had [...] obtained for interventions Ther Ex Access Code: [email or web address] URL: [email or web address] Date: 02/15/2023 Prepared by: Dara Cárdenas Exercises [...] PHYSICAL THERAPIST Signed: 03/09/2023 15:01 DARA CÁRDENAS [facility]
--- OUTSIDE RECORDS SUMMARY | 2024-01-24 02:24 | XMS_ITS | Encounter Summary ---
Author Name [facility] [place] [place] Organization [facility] [place] Address [address] [place] [address] Care Team Providers Care Supervisor Veneer Name Role Phone NONA PAULINO Primary Care Provider [facility] Insurance Providers: All historical and current Section Date Range: From patient's date of to the date document was created. This section includes the names of all active insurance providers for the patient. Insurance Provider Type of Coverage Plan Name Start of Policy Coverage End of Policy Coverage Group Number Member ID Insurance Provider's Telephone Number Policy Mandel's Name Patient's Relationship to Policy Mandel [facility] (WNR) MEDICARE ADVANTAGE [facility] (WNR) May 02, 2016 [id number] [phone] Duarte PANDYA PATIENT [facility] (WNR) MEDICARE [facility] (WNR) May 02, 2016 [id number] [phone] Duarte PANDYA PATIENT Selected Encounter This section includes the information on record at [place] for the Encounter. Date/Time Encounter Type Encounter Description Reason Provider Source Jan 27, 2023 02:30 PM HEARING AID FITTING/CHECKIN G AUDIOLOGY ICD-10-CM Z46.1 Encounter for fitting and adjustment of hearing aid LASHELL ARRIOLA IHE Encounter Template Text not used by [place] Assessments - Encounter Diagnoses This section includes the primary and secondary diagnoses documented for the Encounter. Date/Time Primary/Secondary Diagnosis Diagnosis Name Provider Source Jan 27, 2023 03:05 PM PRIMARY Encounter for fitting and adjustment of hearing aid RENALDO ARRIOLA [facility] Jan 27, 2023 03:05 PM SECONDARY Impacted cerumen, bilateral RENALDO ARRIOLA [place] [facility] Jan 27, 2023 03:05 PM SECONDARY Sensorineural hearing loss, bilateral RENALDO ARRIOLA [facility] Jan 27, 2023 03:05 PM SECONDARY Tinnitus, bilateral RENALDO ARRIOLA [facility] Plan of Treatment: Future Appointments (+ 6 months) and Future Tests (+/- 45 days) The Plan of Treatment section includes future care activities for the patient from all [place] [facility]. This section includes future appointments and future orders which are active, pending or scheduled. Future Appointments This section includes appointments that were scheduled to occur 6 months from the date of the Encounter, up to a maximum of 20 appointments. The data comes from all [place] treatment [facility]. Appointment Date/Time Appointment Type Appointme nt Facility Name Feb 15, 2023 03:30 PM AMBULATORY - REHAB MEDICIN E [facility] Mar 09, 2023 02:30 PM AMBULATORY - REHAB MEDICIN E [facility] Mar 10, 2023 11:30 AM [facility] [place]IC[place] [facility] Mar 16, 2023 02:30 PM [facility] [place]ONE [place] [facility] Apr 13, 2023 12:00 PM [facility]ORY - NONE [facility] Apr 14, 2023 09:00 AM [facility]ORY - NONE [facility] [facility] Apr 26, 2023 05:00 PM [facility]ORY - [facility]ONE [place] [facility] May 17, 2023 02:00 PM AM[facility]UL[facility]ORY - [facility]ICINE [facility] May 17, 2023 02:30 PM AM[facility]UL[facility]ORY - MEDICINE [facility] May 18, 2023 01:00 PM [facility]ONE [facility] [facility] May 18, 2023 02:30 PM [facility]ONE [place] [facility] Jun 27, 2023 01:30 PM AMBUL[facility]ORY - SURGERY [facility] Jul 28, 2023 11:00 AM [facility]BULATORY - [facility]ICINE [facility] Social History: Smoking Status (Most current) [...] 17, 2023 01:00 PM VA-TOBACCO FORMER USER [facility] Tobacco Use History This section includes a history of the smoking, or tobacco-related health factors, that were collected on or before the date of the Encounter. The data comes from the [place] facility where the Encounter took place. Date/Time Smoking Status/Tobacco Use Comment F acility Jan 17, 2023 01:00 PM VA-TOBACCO QUIT 15 YRS OR MORE [facility] Feb 01, 2022 01:00 PM VA-TOBACCO FORMER USER [facility] Feb 01, 2022 01:00 PM VA-TOBACCO QUIT 15 YRS OR MORE [facility] Feb 02, 2021 01:00 PM VA-TOBACCO FORMER USER [facility] Feb 02, 2021 01:00 PM VA-TOBACCO QUIT 15 YRS OR MORE [facility] Dec 12, 2019 01:25 PM VA-TOBACCO FORMER USER [facility] Dec 12, 2019 01:25 PM VA-TOBACCO QUIT 15 YRS OR MORE [facility] Jun 21, 2018 11:16 AM VA-TOBACCO FORMER USER [facility] Jun 21, 2018 11:16 AM VA-TOBACCO QUIT 15 YRS OR MORE [facility] September 15, 2017 05:29 AM INPT NO TOBACCO USE IN LAST 30 D [facility] Jun 29, 2017 02:21 PM FORMER TOBACCO USER 7Y OR GREATE R [facility] September 16, 2016 05:29 AM INPT NO TOBACCO USE IN LAST 30 D [facility] May 06, 2016 10:21 AM FORMER TOBACCO USER 7Y OR GREATE R [facility] Mar 24, 2016 11:54 AM INPT NO TOBACCO USE IN LAST 30 D [facility] Jun 23, 2015 10:20 AM FORMER TOBACCO USER 7Y OR GREATE R [facility] Jul 04, 2014 02:41 PM FORMER TOBACCO USER 7Y OR GREATE R [facility] Dec 23, 2010 02:12 PM LIFETIME NON-TOBACCO USER [facility] Dec 18, 2010 05:07 PM FORMER TOBACCO USER 7Y OR GREATE R [facility] May 26, 2006 02:20 PM FORMER TOBACCO USER 7Y OR [facility] Advance Directives: All historical and current [...] 15, 2016 ADVANCE DIRECTIVE DISCUSSION MAUREEN TREVINO [facility] Mar 22, 2016 CLINICAL WARNING PRUDENCIO TYLER [facility] Feb 05, 2011 CLINICAL WARNING [facility] Dec 17, 2010 CLINICAL WARNING RAKESHQUE [facility] Aug 26, 2003 ADVANCE DIRECTIVE ELGIN HOOPER [facility] Radiology Reports: +/- 30 days of [...] the Encounter. The data comes from all [facility] facilities. Date/Time Radiology Report Provider Source Jan 14, 2023 02:16 PM SEGMENTALS/ELAYNE: NANDA PANDYA [id number] -[id number] M Ex Date: JAN 14, 2023@14:16 Req Phys: NONA PAULINO Loc: [facility] PACT ADELAIDA PHONE (Req'g Loc) Img Loc: VASCULAR LAB PROCEDURES Service: Unknown (Case [id number] COMPLETE) SEGMENTALS/ELAYNE (VAS Detailed) CPT:24469 Reason for Study: Concern for decreased blood flow in feet Clinical History: Please note that this study requires a 60min apt. time. IS NOT under investigation for COVID-19 or is COVID-19 negative Concern for decreased blood flow in both feet per [facility] podiatry. Responsible provider name and phone number to notify for critical findings if other than user placing the order and pager listed below: User placing orders pager: [phone] LAST CREATININE 1.0 (06/08/22) Report Status: Verified Date Reported: JAN 14, 2023 Date Verified: JAN 14, 2023 Armament Mechanic E-Sig:/ES/ADORE MOE MD Report: Bilateral Lower [...] Primary Interpreting Staff: ADORE MOE MD, RADIOLOGIST (Armament Mechanic) Primary Interpreting Resident: ADORE ROBINS, , INSTRUCTIONAL TECHNOLOGY SPECIALIST /ADORE SCHMIDT [facility] Encounter Notes: All associated encounter notes This section contains the clinical notes associated to the Encounter. Date/Time Encounter Note(s) Provider Source Jan 27, 2023 02:34 PM AUDIOLOGY NOTE: LOCAL TITLE: AUDIOLOGY CLINIC NURSING NOTE STANDARD TITLE: AUDIOLOGY NOTE DATE OF NOTE: JAN 27, 2023@14:34 ENTRY DATE: JAN 27, 2023@14:34:16 AUTHOR: SOFIA HAYES COSIGNER: URGENCY: STATUS: COMPLETED Reason for visit: [...] PRACTICAL NURSE Signed: 01/27/2023 15:36 SOFIA HAYES [facility] Jan 27, 2023 12:16 PM AUDIOLOGY NOTE: [...] is NOT Service Connected for Hearing Loss/Tinnitus. Hayti was unaccompanied. would like a hearing test, he recently went to a and found he struggled more than usual understanding. He also reports the left aid battery on his way into clinic, but reports the aids have been working well otherwise. wears the following hearing aids: Hearing Aids (right/left): 05/15/21 KALEY MICHAEL CIC R [id number] 06/10/24 11/08/21 05/15/21 [facility] MICHAEL CIC L [id number] 06/10/24 11/08/21 BACKUP AIDS: 03/17/17 KALEY MUSE I2400 CIC R [id number] [id number] 03/17/17 KALEY MUSE I2400 CIC L [id number] HISTORY: History of , recreational or occupational noise exposure: Yes: worked in the [employer] in [employer], stationed in [employer] HISTORY: Concerns reported today by : Hearing loss, both ears: gradual Tinnitus, both ears: intermittent Denies any significant otologic history. Hayti's reported hearing concerns: Restaurants/Background noise, Group situations, Family/Spouse's voice PROCEDURES: OTOSCOPY Bilaterally: Partial cerumen impaction. requested ear cleaning so he is sent to the clinic nurse for cerument removal. Otoscopy following cerumen removal was clear bilaterally. Normal appearing tympanic membranes. TYMPANOMETRY: RIGHT EAR: Type A Pressure: Normal Compliance: Normal Volume: Normal LEFT EAR: Type A Pressure: Normal Compliance: Normal Volume: Normal AUDIOMETRICS: Air conduction, Bone conduction, Speech testing Transducer: Circumaural headphones Reliability: good RIGHT EAR (Hz) 250 676 089 6919 1500 2000 3000 4000 6000 8000 Air: see Audiogram display under Tools->Audiology->ROES or see JACINTA database. Bone: see Audiogram display under Tools->Audiology->ROES or see JACINTA database. LEFT EAR (Hz) 250 561 731 0357 1500 2000 3000 4000 6000 8000 Air: see Audiogram display under Tools->Audiology->ROES or see JACINTA database. Bone: see Audiogram display under Tools->Audiology->ROES or see JACINTA database. - All thresholds are in dB HL * = Masked Threshold SPEECH RECOGNITION THRESHOLD (SRT): Spondees Right: 50 dB HL Left: 55 dB HL Pure tone results were consistent with speech office manager receptionist thresholds. WORD RECOGNITION: /W-22 word list Right Ear: 72% Level: 85* [...] out. There is wax plugged in the inserting machine operator of the left aid. After this is removed, listening check confirms both aids are working well. -Aids are connected to the fitting software and aids are reprogrammed based on the results from today's hearing test. -Gain is increased in the high frequencies in both aids. - notes an immediate improvement in clarity. -Volume control is changed to 2 dB steps ranging from 10 dB up and 10 dB down from the default setting. -Deactivated autophone program. -Hayti confirms both aids sound clear and comfortable. - is provided additional wax filters and has no other questions today. PLAN: - Regular follow up recommended to monitor for changes in hearing, or as medically indicated. - Hayti is in agreement with this plan. I have seen and discussed the patient with my supervising practitioner, Dr. Arriola, and they agree with my assessment and plan. /vincenzo/ CONCEPCION HO AUDIOLOGY TRAINEE Signed: 01/27/2023 15:05 /SIMON Valero STAFF ENTERTAINER & COMIC Cosigned: 01/27/2023 15:47 01/27/2023 ADDENDUM STATUS: COMPLETED with bilateral sensorineural hearing loss and tinnitus [...] a 60 minute appointment. /SIMON Valero STAFF ENTERTAINER & COMIC Signed: 01/27/2023 15:48 CONCEPCION HO [facility]
--- OUTSIDE RECORDS SUMMARY | 2024-01-24 02:25 | XMS_ITS | Encounter Summary ---
Author Name [facility] [place] Organization [place] Address [address] [place] [id number] Care Team Providers Care Litigation Specialist Name Role Phone NONA PAULINO Primary Care Provider Carol mccauley Insurance Providers: All historical and current Section Date Range: From patient's date of to the date document was created. This section includes the names of all active insurance providers for the patient. Insurance Provider Type of Coverage Plan Name Start of Policy Coverage End of Policy Coverage Group Number Member ID Insurance Provider's Telephone Number Policy Mandel's Name Patient's Relationship to Policy Mandel [facility] (WNR) MEDICARE ADVANTAGE [facility] (WNR) May 02, 2016 [id number] [phone] Duarte PANDYA PATIENT [facility] (WNR) MEDICARE ADVANTAGE [facility] (WNR) May 02, 2016 [id number] [phone] Duarte PANDYA PATIENT Selected Encounter This section includes the information on record at [place] for the Encounter. Date/Time Encounter Type Encounter Description Reason Provider Source May 17, 2023 02:30 PM OFFICE O/P EST MOD 30 MIN CARDIOLOGY ICD-10-CM R42 Dizziness and giddiness THOLAKANAHALLI ,VENKATAKRISHN Doreen [facility] Encounter Template Text not used by [place] Assessments - Encounter Diagnoses This section includes the primary and secondary diagnoses documented for the Encounter. Date/Time Primary/Secondary Diagnosis Diagnosis Name Provider Source May 17, 2023 03:30 PM PRIMARY Dizziness and giddiness MARTÍNHITESHLESA ClarkeRAYKYLE QUARLES [facility] May 17, 2023 03:30 PM SECONDARY Ventricular premature depolarization VERONICA DOZIER [facility] Plan of Treatment: Future Appointments (+ 6 months) and Future Tests (+/- 45 days) The Plan of Treatment section includes future care activities for the patient from all [place] [facility]. This section includes future appointments and future orders which are active, pending or scheduled. Future Appointments This section includes appointments that were scheduled to occur 6 months from the date of the Encounter, up to a maximum of 20 appointments. The data comes from all [facility]. Appointment Date/Time Appointment Type Appointme nt Facility Name May 18, 2023 01:00 PM [facility]ORY [facility] [facility] May 18, 2023 02:30 PM [facility] Jun 27, 2023 01:30 PM AMBULATORY - SURGERY [facility] Jul 28, 2023 11:00 AM [facility] Aug 15, 2023 02:00 PM AMBULATORY - SURGERY [facility] Aug 15, 2023 05:20 PM AMBULATORY - REHAB [facility] September 06, 2023 11:00 AM AMBULATORY - SURGERY [facility] September 06, 2023 01:45 PM [facility] September 06, 2023 02:00 PM [facility] September 06, 2023 02:30 PM [facility] Oct 24, 2023 01:30 PM [facility] Oct 24, 2023 02:30 PM [facility] Oct 27, 2023 09:41 AM [facility] Nov 02, 2023 01:30 PM AMBULATORY - SURGERY [facility] Nov 08, 2023 05:30 PM [facility] Vital Signs: All taken on the encounter date This section contains inpatient and outpatient Vital Signs collected on the date of the Encounter. Date/Time Temperature Pulse Blood Pressure Respiratory Rate SP02 Pain Height Weight Body Mass Index Source May 17, 2023 02:17 PM 142/70 mm[Hg] [facility] May 17, 2023 02:16 PM 269 lb 42 [facility] May 17, 2023 02:11 PM 97.8 F 74 /min 143/72 mm[Hg] 18 /min 95 % 0 67 in [facility] Social History: Smoking Status (Most current) and Tobacco Use (All prior to encounter date) This section includes the most current, and the historical, smoking and tobacco- related health factors from the [place] facility where the Encounter took place. Current Smoking Status This section includes the most current smoking, or tobacco-related health factor, from the [place] facility where the Encounter took place. Date/Time Current Smoking Status Comment Facil ity Jan 17, 2023 01:00 PM VA-TOBACCO FORMER USER [facility] Tobacco Use History This section includes a history of the smoking, or tobacco-related health factors, that were collected on or before the date of the Encounter. The data comes from the [place] facility where the Encounter took place. Date/Time Smoking Status/Tobacco Use Comment F acility Jan 17, 2023 01:00 PM VA-TOBACCO QUIT 15 YRS OR MORE [facility] Feb 01, 2022 01:00 PM VA-TOBACCO FORMER USER [facility] Feb 01, 2022 01:00 PM VA-TOBACCO QUIT 15 YRS OR MORE [facility] Feb 02, 2021 01:00 PM VA-TOBACCO FORMER USER [facility] Feb 02, 2021 01:00 PM VA-TOBACCO QUIT 15 YRS OR MORE [facility] Dec 12, 2019 01:25 PM VA-TOBACCO FORMER USER [facility] Dec 12, 2019 01:25 PM VA-TOBACCO QUIT 15 YRS OR MORE [facility] Jun 21, 2018 11:16 AM VA-TOBACCO FORMER USER [facility] Jun 21, 2018 11:16 AM VA-TOBACCO QUIT 15 YRS OR MORE [facility] September 15, 2017 05:29 AM INPT NO TOBACCO USE IN LAST 30 D AYS [facility] Jun 29, 2017 02:21 PM FORMER TOBACCO USER 7Y OR GREATE R [facility] September 16, 2016 05:29 AM INPT NO TOBACCO USE IN LAST 30 D [facility] May 06, 2016 10:21 AM FORMER TOBACCO USER 7Y OR GREATE R [facility] Mar 24, 2016 11:54 AM INPT NO TOBACCO USE IN LAST 30 D [facility] Jun 23, 2015 10:20 AM FORMER TOBACCO USER 7Y OR GREATE R [facility] Jul 04, 2014 02:41 PM FORMER TOBACCO USER 7Y OR GREATE R [facility] Dec 23, 2010 02:12 PM LIFETIME NON-TOBACCO USER [facility] Dec 18, 2010 05:07 PM FORMER TOBACCO USER 7Y OR GREATE R [facility] May 26, 2006 02:20 PM FORMER TOBACCO USER 7Y OR GREATE R [facility] Advance Directives: All historical and current Section Date Range: From patient's date of to the date document was created. This section includes ALL of a patient's completed or amended [place] Advance and Rescinded Directives. The entries below indicate that a directive exists for the patient, but an actual copy is not included with this document. The data comes from all [facility]. Date Advance Directives Provider Source Jul 15, 2016 ADVANCE DIRECTIVE ARIEL TREVINO [facility] Jul 15, 2016 ADVANCE DIRECTIVE DISCUSSION MAUREEN TREVINO [facility] Mar 22, 2016 CLINICAL WARNING PRUDENCIO TYLER [facility] Feb 05, 2011 CLINICAL WARNING LIZETH GABRIEL [facility] Dec 17, 2010 CLINICAL WARNING QUE CAMERON [facility] Aug 26, 2003 ADVANCE DIRECTIVE ELGIN HOOPER [facility] Radiology Reports: +/- 30 days of the [...] the Encounter. The data comes from all [facility] facilities. Date/Time Radiology Report Provider Source May 18, 2023 12:15 PM US VENOUS INSUFFIC IENCY LOWER EXTREMITY (BILATERAL) (P): NANDA PANDYA [id number] -[id number] M Ex Date: MAY 18, 2023@12:15 Req Phys: NONA PAULINO Pat Loc: [facility] PACT ADELAIDA PHONE (Req'g Loc) Img Loc: Ultrasound Imaging Service: Unknown (Case [id number] COMPLETE) US VENOUS EXTREMITY BILATERAL (US Detailed) CPT:02129 Reason for Study: Outside director of institutional giving request Clinical History: Patient has dark brown colored legs. Arterial scan normal. Pateint's director of institutional giving would like a venous US. Responsible provider name and phone number to notify for critical findings if other than user placing the order and pager listed below: User placing orders pager: Nona Paulino LAST CREATININE 1.0 (06/08/22) Report Status: Verified Date Reported: MAY 18, 2023 Date Verified: MAY 18, 2023 Able Bodied Watchman E-Sig:/ES/MARY AZEVEDO MD Report: Lower Extremity Venous [...] brown colored legs. Arterial scan normal. Pateint's director of institutional giving would like a venous US. Findings: Incompetency [...] either lower extremity deep veins. I, MARY JOLLY, have reviewed the images and report. Primary Interpreting Staff: MARY AZEVEDO MD, RADIOLOGIST (Able Bodied Watchman) Primary Interpreting Resident: REYMUNDO COOPER DO, ORNAMENTAL METAL WORKER HELPER /MARY GOLDEN [facility] Encounter Notes: All associated encounter notes This section contains the clinical notes associated to the Encounter. 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) Asthma (SCT 521620511) ANEMIA NOS (ICD-9-CM 285.9) HEMATURIA (ICD-9-CM 599.7) Sleep apnea (SCT 20033330) Empyema, Pleural (ICD-9-CM 510.9) Bigeminy (ICD-9-CM 427.89) Bradycardia (ICD-9-CM 427.89) Cardiomyopathy ([facility] 30835981) Arrhythmia ([facility] 051623021) Cataract nos (ICD-9-CM 366.9) Pseudophakia (ICD-9-CM V43.1) Benign prostatic hyperplasia ([facility] 274961942) Dizziness and giddiness ([facility] 557027565) Gomez's esophagus ([facility] 013858966) Atrial fibrillation ([facility] 69767750) COPD - Chronic obstructive pulmonary disease ([facility] 15349912) Allergies: BRAZIL NUTS (Jun 12, 2006) ANIMALS [...] EVERY DAY FOR ACTIVE BLOOD PRESSURE NYSTATIN 063088 UNT/GM CREAM APPLY THIN LAYER TOPICALLY ACTIVE [...] MARISELA BRISCOE MD STAFF PHYSICIAN - CARDIAC CASH APPLICATIONS ANALYST Signed: 05/17/2023 15:30 05/17/2023 ADDENDUM STATUS: COMPLETED Although there is in the problem list AF noted I haven't seen AF documented lately. /vincenzo/ MARISELA BRISCOE MD STAFF PHYSICIAN - CARDIAC CASH APPLICATIONS ANALYST Signed: 05/17/2023 15:31 ACOSTA BRISCOE [facility] May 17, 2023 02:12 PM INTERNAL MEDICINE [...] outside medications and/or herbals. /vincenzo/ RAMESH QUINTERO LPN, LPN Signed: 05/17/2023 14:15 RAMESH QUINTERO [facility]
--- OUTSIDE RECORDS SUMMARY | 2024-01-24 02:26 | XMS_ITS | Encounter Summary ---
Author Name [facility] Organization [facility] Address [address] [place] [id number] Care Team Providers Care Airport Planner Name Role Phone NONA PAULINO Primary Care Provider [facility] Insurance Providers: All historical and current Section Date Range: From patient's date of to the date document was created. This section includes the names of all active insurance providers for the patient. Insurance Provider Type of Coverage Plan Name Start of Policy Coverage End of Policy Coverage Group Number Member ID Insurance Provider's Telephone Number Policy Mandel's Name Patient's Relationship to Policy Mandel [facility] (WNR) MEDICARE ADVANTAGE [facility] (WNR) May 02, 2016 [id number] [phone] Duarte PANDYA PATIENT [facility] (WNR) MEDICARE ADVANTAGE [facility] (WNR) May 02, 2016 [id number] [phone] Duarte PANDYA PATIENT Selected Encounter This section includes the information on record at [place] for the Encounter. Date/Time Encounter Type Encounter Description Reason Provider Source Oct 24, 2023 02:59 PM Outpatient Encounter TELEPHONE PRIMARY CARE ALISHA HOLMAN IHE Encounter Template Text not used by [place] Plan of Treatment: Future Appointments (+ 6 months) and Future Tests (+/- 45 days) The Plan of Treatment section includes future care activities for the patient from [facility]. This section includes future appointments and future orders which are active, pending or scheduled. Future Appointments This section includes appointments that were scheduled to occur 6 months from the date of the Encounter, up to a maximum of 20 appointments. The data comes from all [facility]. Appointment Date/Time Appointment Type Appointme nt Facility Name Oct 27, 2023 09:41 AM AMB[place]ORY - NONE [place] [facility] Nov 02, 2023 01:30 PM [place] [facility] Nov 08, 2023 05:30 PM AMBULATORY - REHAB MEDICIN [facility] Dec 13, 2023 11:30 AM AMBULATORY - MEDICINE [facility] Dec 26, 2023 11:00 AM AMBULATORY - REHAB MEDICIN E [facility] Dec 28, 2023 01:30 PM AMBULATORY - SURGERY [facility] Jan 10, 2024 01:30 PM AM[facility]UL[facility]ORY - [facility] Jan 10, 2024 02:30 PM [place]ORY [place] [facility] Jan 11, 2024 01:20 PM AM[facility]UL[facility] - SUR[facility]ERY [facility] Jan 19, 2024 08:00 AM [facility] Jan 25, 2024 10:00 AM AMBULATORY - REHAB MEDICIN E [facility] Jan 31, 2024 12:00 PM AMBULATORY - [facility]ICINE [facility] Feb 01, 2024 01:00 PM [facility]ONE [facility] Feb 01, 2024 01:30 PM AMBULATORY - SURGERY [facility] Lab Results: +/- 30 days of the encounter This section includes the Chemistry and Hematology Lab Results on record with [place] for the patient. Radiology Reports and Pathology Reports are provided separately, in subsequent sections. Lab Results This section contains the Chemistry/Hematology Results that were resulted 30 days before or 30 daysafter the date of the Encounter. Date/Time Source Result Type Result - Unit Interpretation Reference Range Comment Oct 24, 2023 01:17 PM [facility] HEMOGLOBIN A1C Specimen Type: BLOOD [...] Jul 28, 2023 11:33 PM Reporting Lab: [facility] [id number] Performing Lab: [facility] [id number] HEMOGLOBIN A1C 5.5 4.0-6.0 Oct 24, 2023 01:17 PM [facility] B 12 Specimen Type: SERUM No comment entered. Ordering Provider: LES PAULINO Report Released Date/Time: Jul 28, 2023 11:33 PM Reporting Lab: [facility] [id number] Performing Lab: [facility] [id number] B 12 316 pg/mL 213-816 Oct 24, 2023 01:17 PM [facility] LIPID PANEL,NON-FASTING Specimen Type: PLASMA No comment entered. Ordering Provider: LES PAULINO Report Released Date/Time: Jul 28, 2023 11:33 PM Reporting Lab: [facility] [phone] Performing Lab: [facility] [id number] CHOLESTEROL 150 mg/dL <199 .HDL 54 mg/dL >40 LDL CALCULATION 84 mg/dL <99 VLDL CALCULATION 12 mg/dL <29 NON HDL CHOLESTEROL 96 mg/dL <129 TRIG(NON FASTING) 60 mg/dL <149 Oct 24, 2023 01:17 PM [facility] FOLATE Specimen Type: SERUM No comment entered. Ordering Provider: LES PAULINO Report Released Date/Time: Jul 28, 2023 11:33 PM Reporting Lab: [facility] [id number] Performing Lab: [facility] [id number] FOLATE 8.1 ng/mL >7.0 Oct 24, 2023 01:17 PM [facility] BASIC METABOLIC PANEL+MG Specimen Type: PLASMA No comment entered. Ordering Provider: LES PAULINO Report Released Date/Time: Jul 28, 2023 11:33 PM Reporting Lab: [facility] [phone] Performing Lab: [facility] [phone] CREATININE 1.0 mg/dL 0.7-1.2 UREA NITROGEN 23 mg/dL 8-26 GLUCOSE 86 mg/dL 70-100 SODIUM 141 mmol/L 136-145 POTASSIUM 4.7 mmol/L 3.5-5.1 CHLORIDE 108 mmol/L H 98-107 CO2 25 mmol/L 22-29 CALCIUM 9.6 mg/dL 8.4-10.2 MAGNESIUM 2.0 mg/dL 1.6-2.6 ANION GAP 8 mmol/L 5-15 .CREAT EGFR(CKD-EPI) 73 >60 Oct 24, 2023 01:17 PM [facility] CBC Specimen Type: BLOOD No comment entered. Ordering Provider: LES PAULINO Report Released Date/Time: Jul 28, 2023 11:33 PM Reporting Lab: [facility] [id number] Performing Lab: [facility] [phone] WBC 7.64 10*3/uL 4.0-11.0 RBC 4.19 10*6/uL L 4.6-6.2 HGB 12.9 g/dL L 13.5-17.9 HCT 39.5 L 41-54 MCV 94.3 fL 80-100 MCH 30.8 pg 27-33 MCHC 32.7 g/dL 32.0-37.5 PLT 213 10*3/uL 150-400 MPV 9.1 fL 7.4-10.4 RDW 13.7 11.5-14.5 Oct 24, 2023 01:17 PM [facility] IRON GROUP Specimen Type: SERUM No comment entered. Ordering Provider: LES PAULINO UL Report Released Date/Time: Jul 28, 2023 11:33 PM Reporting Lab: [facility] [phone] Performing Lab: [facility] [id number] IRON 83 ug/dL 65-175 TIBC,CALCULAT ED 285 [...] 76 128/68 16 93 0 268.7 42 [facility] Social History: Smoking Status (Most current) and Tobacco Use (All prior to encounter date) This section includes the most current, and the historical, smoking and tobacco- related health factors from the [place] facility where the Encounter took place. Current Smoking Status This section includes the most current smoking, or tobacco-related health factor, from the [place] facility where the Encounter took place. Date/Time Current Smoking Status Comment Facil ity Oct 24, 2023 02:30 PM VA-TOBACCO FORMER USER [facility] Tobacco Use History This section includes a history of the smoking, or tobacco-related health factors, that were collected on or before the date of the Encounter. The data comes from the [place] facility where the Encounter took place. Date/Time Smoking Status/Tobacco Use Comment F acility Oct 24, 2023 02:30 PM VA-TOBACCO QUIT 15 YRS OR MORE [facility] Jan 17, 2023 01:00 PM VA-TOBACCO FORMER USER [facility] Jan 17, 2023 01:00 PM VA-TOBACCO QUIT 15 YRS OR MORE [facility] Feb 01, 2022 01:00 PM VA-TOBACCO FORMER USER [facility] Feb 01, 2022 01:00 PM VA-TOBACCO QUIT 15 YRS OR MORE [facility] Feb 02, 2021 01:00 PM VA-TOBACCO FORMER USER [facility] Feb 02, 2021 01:00 PM VA-TOBACCO QUIT 15 YRS OR MORE [facility] Dec 12, 2019 01:25 PM VA-TOBACCO FORMER USER [facility] Dec 12, 2019 01:25 PM VA-TOBACCO QUIT 15 YRS OR MORE [facility] Jun 21, 2018 11:16 AM VA-TOBACCO FORMER USER [facility] Jun 21, 2018 11:16 AM VA-TOBACCO QUIT 15 YRS OR MORE [facility] September 15, 2017 05:29 AM INPT NO TOBACCO USE IN LAST 30 D [facility] Jun 29, 2017 02:21 PM FORMER TOBACCO USER 7Y OR GREATE R [facility] September 16, 2016 05:29 AM INPT NO TOBACCO USE IN LAST 30 D [facility] May 06, 2016 10:21 AM FORMER TOBACCO USER 7Y OR GREATE R [facility] Mar 24, 2016 11:54 AM INPT NO TOBACCO USE IN LAST 30 D [facility] Jun 23, 2015 10:20 AM FORMER TOBACCO USER 7Y OR GREATE R [facility] Jul 04, 2014 02:41 PM FORMER TOBACCO USER 7Y OR GREATE R [facility] Dec 23, 2010 02:12 PM LIFETIME NON-TOBACCO USER [facility] Dec 18, 2010 05:07 PM FORMER TOBACCO USER 7Y OR GREATE R [facility] May 26, 2006 02:20 PM FORMER TOBACCO USER 7Y OR GREATE R [facility] Advance Directives: All historical and current Section Date Range: From patient's date of to the date document was created. This section includes ALL of a patient's completed or amended [place] Advance and Rescinded Directives. The entries below indicate that a directive exists for the patient, but an actual copy is not included with this document. The data comes from all [place] facilities. Date Advance Directives Provider Source Jul 15, 2016 ADVANCE DIRECTIVE ARIEL TREVINO [facility] Jul 15, 2016 ADVANCE DIRECTIVE DISCUSSION MAUREEN TREVINO [facility] Mar 22, 2016 CLINICAL WARNING PRUDENCIO [facility] Feb 05, 2011 CLINICAL WARNING [facility] Dec 17, 2010 CLINICAL WARNING QUE CAMERON [facility] Aug 26, 2003 ADVANCE DIRECTIVE ELGIN HOOPER [facility] Encounter Notes: All associated encounter notes This section contains the clinical notes associated to the Encounter. Date/Time Encounter Note(s) Provider Source Oct 24, 2023 02:59 PM SOCIAL WORK RISK ASSESSMENT SCREENING NOTE: LOCAL TITLE: SOCIAL WORK TRIAGE ASSESSMENT STANDARD TITLE: SOCIAL WORK RISK ASSESSMENT SCREENING NOTE DATE OF NOTE: OCT 24, 2023@14:59 ENTRY DATE: OCT 24, 2023@14:59:48 AUTHOR: MANNY HOLMAN EXP COSIGNER: URGENCY: STATUS: COMPLETED SOCIAL WORK TRIAGE ASSESSMENT Referral source: Family Presenting issues: Need for in-home support services Brief summary: PCSW received call from 's dtr Sandrita asking about in-home services. Social Work Interventions and Plan: Returned call to Sandrita ([phone]). Sandrita states lives with her but in his own apartment. She asks if he qualifies for any in-home services through [place]. Discussed skilled and unskilled home care. Sandrita states they are primarily seeking assistance with cleaning and meals- states has no ADL dependencies. Discussed [place] does not provide stand-alone homemaking services. Sandrita states she is mostly concerned about nutrition as is not a cook. Sandrita asks about [employer] Wheels. Discussed [employer] and [employer] partnership. Encouraged Sandrita to contact [employer] regarding process for meals for veterans. Also provided phone number to [facility]. Sandrita has no further questions today. /vincenzo/ MANNY Potts. SAM HOLMAN, ELDERLY SITTER RADAR SIGNAL PROCESSING ENGINEER Signed: 10/24/2023 15:03 MANNY HOLMAN [facility]
--- OUTSIDE RECORDS SUMMARY | 2024-01-24 02:26 | XMS_ITS | Encounter Summary ---
Author Name [facility] Organization [facility] Address [address] [place] [id number] Care Team Providers Care Lvn Name Role Phone NONA PAULINO Primary Care Provider [facility] Insurance Providers: All historical and current [...] Mandel's Name Patient's Relationship to Policy Mandel [facility] (WNR) MEDICARE ADVANTAGE [facility] (WNR) May 02, 2016 [id number] [phone] Duarte PANYDA PATIENT [facility] (WNR) MEDICARE ADVANTAGE [facility] (WNR) May 02, 2016 [id number] [phone] Duarte PANDYA PATIENT Selected Encounter This section includes the information on record at [place] for the Encounter. Date/Time Encounter Type Encounter Description Reason Provider Source Oct 25, 2023 03:05 PM Outpatient Encounter TELEPHONE TRIAGE SHAYLEE LOPEZ Encounter Template Text not used by [place] Plan of Treatment: Future Appointments (+ 6 months) and Future Tests (+/- 45 days) The Plan of Treatment section includes future care activities for the [facility] This section includes future appointments and future orders which are active, pending or scheduled. Future Appointments This section includes appointments that were scheduled to occur 6 months from the date of the Encounter, up to a maximum of 20 appointments. The data comes from all [facility]. Appointment Date/Time Appointment Type Appointme nt Facility Name Oct 27, 2023 09:41 AM AMBULATORY - NONE [place] [facility] Nov 02, 2023 01:30 PM AMBUL[place]ORY [place] [facility] Nov 08, 2023 05:30 PM AMBULATORY - [facility]HAB [facility] Dec 13, 2023 11:30 AM AMBULATORY - MEDICINE [facility] Dec 26, 2023 11:00 AM AM[facility]ULATORY - [facility] Dec 28, 2023 01:30 PM AMBULATORY - SURGERY [facility] Jan 10, 2024 01:30 PM [facility]UL[facility] Jan 10, 2024 02:30 PM [place] [facility] Jan 11, 2024 01:20 PM AM[place] - [place] [facility] Jan 19, 2024 08:00 AM [facility] Jan 25, 2024 10:00 AM AMBULATORY - [facility] Jan 31, 2024 12:00 PM [facility] Feb 01, 2024 01:00 PM [facility]ONE [facility] Feb 01, 2024 01:30 PM AMBULATORY - SURGERY [facility] Lab Results: +/- 30 days of the encounter This section includes the Chemistry and Hematology Lab Results on record with [place] for the patient. Radiology Reports and Pathology Reports are provided separately, in subsequent sections. Lab Results This section contains the Chemistry/Hematology Results that were resulted 30 days before or 30 daysafter the date of the Encounter. Date/Time Source Result Type Result - Unit Interpretation Reference Range Comment Oct 24, 2023 01:17 PM [facility] HEMOGLOBIN A1C Specimen Type: BLOOD Comment: [...] Jul 28, 2023 11:33 PM Reporting Lab: [facility] [id number] Performing Lab: [facility] [id number] HEMOGLOBIN A1C 5.5 4.0-6.0 Oct 24, 2023 01:17 PM [facility] B 12 Specimen Type: SERUM No comment entered. Ordering Provider: LES PAULINO Report Released Date/Time: Jul 28, 2023 11:33 PM Reporting Lab: [facility] [id number] Performing Lab: [facility] [id number] B 12 316 pg/mL 213-816 Oct 24, 2023 01:17 PM [facility] LIPID PANEL,NON-FASTING Specimen Type: PLASMA No comment entered. Ordering Provider: LES PAULINO Report Released Date/Time: Jul 28, 2023 11:33 PM Reporting Lab: [facility] [id number] Performing Lab: [facility] [phone] CHOLESTEROL 150 mg/dL <199 .HDL 54 mg/dL >40 LDL CALCULATION 84 mg/dL <99 VLDL CALCULATION 12 mg/dL <29 NON HDL CHOLESTEROL 96 mg/dL <129 TRIG(NON FASTING) 60 mg/dL <149 Oct 24, 2023 01:17 PM [facility] FOLATE Specimen Type: SERUM No comment entered. Ordering Provider: LES PAULINO Report Released Date/Time: Jul 28, 2023 11:33 PM Reporting Lab: [facility] [id number] Performing Lab: [facility] [id number] FOLATE 8.1 ng/mL >7.0 Oct 24, 2023 01:17 PM [facility] BASIC METABOLIC PANEL+MG Specimen Type: PLASMA No comment entered. Ordering Provider: LES PAULINO Report Released Date/Time: Jul 28, 2023 11:33 PM Reporting Lab: [facility] [phone] Performing Lab: [facility] [id number] CREATININE 1.0 mg/dL 0.7-1.2 UREA NITROGEN 23 mg/dL 8-26 GLUCOSE 86 mg/dL 70-100 SODIUM 141 mmol/L 136-145 POTASSIUM 4.7 mmol/L 3.5-5.1 CHLORIDE 108 mmol/L H 98-107 CO2 25 mmol/L 22-29 CALCIUM 9.6 mg/dL 8.4-10.2 MAGNESIUM 2.0 mg/dL 1.6-2.6 ANION GAP 8 mmol/L 5-15 .CREAT EGFR(CKD-EPI) 73 >60 Oct 24, 2023 01:17 PM [facility] IRON GROUP Specimen Type: SERUM No comment entered. Ordering Provider: LES PAULINO Report Released Date/Time: Jul 28, 2023 11:33 PM Reporting Lab: [facility] [id number] Performing Lab: [facility] [phone] IRON 83 ug/dL 65-175 TIBC,CALCULAT ED 285 ug/dL 250-425 FERRITIN 150.3 ng/mL 21.8-274.7 IRON SATURATION 29 20-50 TRANSFERRIN 228 mg/dL 163-382 Oct 24, 2023 01:17 PM [facility] CBC Specimen Type: BLOOD No comment entered. Ordering Provider: LES PAULINO Report Released Date/Time: Jul 28, 2023 11:33 PM Reporting Lab: [facility] [phone] Performing Lab: [facility] [phone] WBC 7.64 10*3/uL 4.0-11.0 RBC 4.19 10*6/uL L 4.6-6.2 HGB 12.9 g/dL L 13.5-17.9 HCT 39.5 L 41-54 MCV 94.3 fL 80-100 MCH 30.8 pg 27-33 MCHC 32.7 g/dL 32.0-37.5 PLT 213 10*3/uL 150-400 MPV 9.1 fL 7.4-10.4 RDW 13.7 11.5-14.5 Social History: Smoking Status (Most current) and Tobacco Use (All prior to encounter date) This section includes the most current, and the historical, smoking and tobacco- related health factors from the [place] facility where the Encounter took place. Current Smoking Status This section includes the most current smoking, or tobacco-related health factor, from the [place] facility where the Encounter took place. Date/Time Current Smoking Status Comment Facil ity Oct 24, 2023 02:30 PM VA-TOBACCO FORMER USER [facility] Tobacco Use History This section includes a history of the smoking, or tobacco-related health factors, that were collected on or before the date of the Encounter. The data comes from the [place] facility where the Encounter took place. Date/Time Smoking Status/Tobacco Use Comment F acility Oct 24, 2023 02:30 PM VA-TOBACCO QUIT 15 YRS OR MORE [facility] Jan 17, 2023 01:00 PM VA-TOBACCO FORMER USER [facility] Jan 17, 2023 01:00 PM VA-TOBACCO QUIT 15 YRS OR MORE [facility] Feb 01, 2022 01:00 PM VA-TOBACCO FORMER USER [facility] Feb 01, 2022 01:00 PM VA-TOBACCO QUIT 15 YRS OR MORE [facility] Feb 02, 2021 01:00 PM VA-TOBACCO FORMER USER [facility] Feb 02, 2021 01:00 PM VA-TOBACCO QUIT 15 YRS OR MORE [facility] Dec 12, 2019 01:25 PM VA-TOBACCO FORMER USER [facility] Dec 12, 2019 01:25 PM VA-TOBACCO QUIT 15 YRS OR MORE [facility] Jun 21, 2018 11:16 AM VA-TOBACCO FORMER USER [facility] Jun 21, 2018 11:16 AM VA-TOBACCO QUIT 15 YRS OR MORE [facility] September 15, 2017 05:29 AM INPT NO TOBACCO USE IN LAST 30 D [facility] Jun 29, 2017 02:21 PM FORMER TOBACCO USER 7Y OR GREATE R [facility] September 16, 2016 05:29 AM INPT NO TOBACCO USE IN LAST 30 D [facility] May 06, 2016 10:21 AM FORMER TOBACCO USER 7Y OR GREATE R [facility] Mar 24, 2016 11:54 AM INPT NO TOBACCO USE IN LAST 30 D [facility] Jun 23, 2015 10:20 AM FORMER TOBACCO USER 7Y OR GREATE R [facility] Jul 04, 2014 02:41 PM FORMER TOBACCO USER 7Y OR GREATE R [facility] Dec 23, 2010 02:12 PM LIFETIME NON-TOBACCO USER [facility] Dec 18, 2010 05:07 PM FORMER TOBACCO USER 7Y OR GREATE R [facility] May 26, 2006 02:20 PM FORMER TOBACCO USER 7Y OR GREATE R [facility] Advance Directives: All historical and current Section Date Range: From patient's date of to the date document was created. This section includes ALL of a patient's completed or amended [place] Advance and Rescinded Directives. The entries below indicate that a directive exists for the patient, but an actual copy is not included with this document. The data comes from all [place] facilities. Date Advance Directives Provider Source Jul 15, 2016 ADVANCE DIRECTIVE ARIEL TREVINO [facility] Jul 15, 2016 ADVANCE DIRECTIVE DISCUSSION MAUREEN TREVINO [facility] Mar 22, 2016 CLINICAL WARNING PRUDENCIO TYLER [facility] Feb 05, 2011 CLINICAL WARN[facility] Dec 17, 2010 CLINICAL WARNING RAKESHQUE [facility] Aug 26, 2003 ADVANCE DIRECTIVE ELGIN HOOPER [facility] Encounter Notes: All associated encounter [...] Thank you. /vincenzo/ TATIANNA CONNELLY RN, WTA-C, [facility] REGISTERED NURSE Signed: 10/26/2023 11:49 Receipt Acknowledged By: 10/26/2023 14:52 /nichole MAY AMSA --- Original Document --- 10/25/23 CCC: CLINICAL TRIAGE: Patient Demographics Patient Name: NANDA PANDYA Patient Primary Address: [address] [place] [address] Patient Primary Phone: [phone] Patient : 1935 Patient Age: 88 Call Back Number: [phone] Caller/Recipient Relation to Patient: Self Emergency Contact: MARTA PEPPER Triage Summary Conducted triage/discussed symptoms Pain Score: 8 (Severe Pain) Utilized the Triage Tool: Yes Chief Complaint: Toe Pain System WHEN: Now Nurse's Recommendation / WHEN: Within 2 Weeks System WHERE: Emergency department Nurse's Recommendation / WHERE: [facility] WHEN/WHERE modifier reason: Other Other - Modifiers: symptom duration Patient Disposition Patient/Caregiver agrees to plan of care: Yes Patient WHERE: Clinic/[facility] Patient WHEN: Within 2 weeks Nursing Plan [...] seen sooner than his pending appointment 12-21-23. endorsing right fifth toe pain, redness and [...] GOAL FOR THE CALL: Sooner podiatry appointment. also asking for assistance speaking with the sleep clinic, states he has questions about his CPAP and has left several messages already without a response. 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 Was Virtual Care Visit considered (TELE or VVC) n/a CT MRI TECHNOLOGIST DISPOSITION: Recommended triage is contact with podiatry clinic > 24 hours secondary to established patient with pending appointment who has been assessed by his PCP. Will alert podiatry clinic. Best contact for is (Verified)[phone]. This note was created by a 3 [facility] RN. Please do not alert this nurse by adding as a signer for future communications. Alerts are not monitored by this user, please reach out to [facility] Leadership instead if indicated. Clinical Contact Center Codes Clinic/Location: [address] PHONE CCC RN TXCC Triage Complete Triage Date: 10/25/2023, 02:47 PM Triage Note: Phone Triage 25 Oct 2023 19:41:00 +0000 [facility] 88 y/[facility] Male Results CC: Toe [...] to toenail or periungual skin /vincenzo/ SHAYLEE RIVERA BECCA VISN 23 DAYTIME VICTIMS ADVOCATE CLERK/SPECIALIST Signed: 10/25/2023 15:05 Receipt Acknowledged By: 10/26/2023 11:46 /vincenzo/ TATIANNA CONNELLY RN, WTA-C, [facility] REGISTERED NURSE TATIANNA CONNELLY [facility] Oct 25, 2023 03:05 PM RN PROGRESS NOTE: LOCAL TITLE: CCC: CLINICAL TRIAGE STANDARD TITLE: RN PROGRESS NOTE DATE OF NOTE: OCT 25, 2023@15:05:28 ENTRY DATE: OCT 25, 2023@15:05:28 AUTHOR: SHAYLEE LOPEZ COSIGNER: URGENCY: STATUS: COMPLETED CCC: CLINICAL TRIAGE Has ADDENDA Patient Demographics Patient Name: NANDA PANDYA Patient Primary Address: [address] [place] [address] Patient Primary Phone: [phone] Patient : 1935 Patient Age: 88 Call Back Number: [phone] Caller/Recipient Relation to Patient: Self Emergency Contact: MARTA PEPPER Triage Summary Conducted triage/discussed symptoms Pain Score: 8 (Severe Pain) Utilized the Triage Tool: Yes Chief Complaint: Toe Pain System WHEN: Now Nurse's Recommendation / WHEN: Within 2 Weeks System WHERE: Emergency department Nurse's Recommendation / WHERE: Clinic/[facility] WHEN/WHERE modifier reason: Other Other - Modifiers: symptom duration Patient Disposition Patient/Caregiver agrees to plan of care: Yes Patient WHERE: Clinic/[facility] Patient WHEN: Within 2 weeks Nursing Plan [...] seen sooner than his pending appointment 12-21-23. endorsing right fifth toe pain, redness and [...] GOAL FOR THE CALL: Sooner podiatry appointment. also asking for assistance speaking with the sleep clinic, states he has questions about his CPAP and has left several messages already without a response. Automobile Mechanic Supervisor attempted to reach sleep clinic/CPAP supplies unsuccessfully, message left on their VM requesting call back to . Was Virtual Care Visit considered (TELE or VVC) n/a CT MRI TECHNOLOGIST DISPOSITION: Recommended triage is contact with podiatry clinic > 24 hours secondary to established patient with pending appointment who has been assessed by his PCP. Will alert podiatry clinic. Best contact for [place] is (Verified)[phone]. This note was created by a 3 [facility] RN. Please do not alert this nurse by adding as a signer for future communications. Alerts are not monitored by this user, please reach out to [facility] Leadership instead if indicated. Clinical Contact Center Codes Clinic/Location: [address] PHONE CCC RN TXCC Triage Complete Triage Date: 10/25/2023, 02:47 PM Triage Note: Phone Triage 25 Oct 2023 19:41:00 +0000 [facility] Dem[facility] 88 y/o Male Results CC: Toe [...] /es/ SHAYLEE RIVERA BECCA VISN 23 DAYTIME VICTIMS ADVOCATE CLERK/SPECIALIST Signed: 10/25/2023 15:05 Receipt Acknowledged By: 10/26/2023 11:46 /vincenzo/ TATIANNA CONNELLY RN, CHANTELLE-C, [facility] REGISTERED NURSE 10/26/2023 ADDENDUM STATUS: COMPLETED [place] Can you please assist in scheduling an earlier appointment, if available. Thank you. /vincenzo/ TATIANNA CONNELLY RN, WTA-C, [facility] REGISTERED NURSE Signed: 10/26/2023 11:49 Receipt Acknowledged By: * AWAITING SIGNATURE * SULEMA MAY BRENDA M [facility]
--- OUTSIDE RECORDS SUMMARY | 2024-01-24 02:26 | XMS_ITS | Encounter Summary ---
Author Name [facility] [place] Address [address] [place] [id number] Care Team Providers Care Instrumental Musician Name Role Phone NONA PAULINO [facility] Insurance Providers: All historical and current [...] Name Patient's Relationship to Policy Mandel [facility] (WNR) MEDICARE ADVANTAGE [facility] (WNR) May 02, 2016 [id number] [phone] Duarte PANDYA PATIENT [facility] (WNR) MEDICARE ADVANTAGE [facility] (WNR) May 02, 2016 [id number] [phone] Duarte PANDYA PATIENT Selected Encounter This section [...] PM PRIMARY Cardiac arrhythmia, unspecified RA [facility] Oct 26, 2023 12:59 PM SECONDARY Benign prostatic hyperplasia with lower urinary tract symp [facility] Oct 26, 2023 12:59 PM SECONDARY Cardiomyopathy, unspecified [facility] Oct 26, 2023 12:59 PM SECONDARY Chronic obstructive pulmonary disease, unspecified [facility] Oct 26, 2023 12:59 PM SECONDARY Dizziness and giddiness [facility] Oct 26, 2023 12:59 PM SECONDARY Essential (primary) hypertension [facility] Oct 26, 2023 12:59 PM SECONDARY Gastro-esophageal reflux disease without esophagitis [facility] Oct 26, 2023 12:59 PM SECONDARY Unspecified atrial fibrillation [facility] Plan of Treatment: Future Appointments (+ 6 months) and Future Tests (+/- 45 days) The Plan of Treatment section includes future care activities for the patient from all [facility]. This section includes future appointments and future orders which are active, pending or scheduled. Future Appointments This section includes appointments that were scheduled to occur 6 months from the date of the Encounter, up to a maximum of 20 appointments. The data comes from all [facility]. Appointment Date/Time Appointment Type Appointme nt Facility Name Oct 27, 2023 09:41 [facility] Nov 02, 2023 01:30 PM AMBULATORY - SURGERY [facility] Nov 08, 2023 05:30 PM [facility] - [facility] Dec 13, 2023 11:30 AM AMBULATORY - MEDICINE ALBERTO DEAN [facility] Dec 26, 2023 11:00 AM AMBULATORY - [facility]AB [facility] Dec 28, 2023 01:30 PM AMBULATORY - SURGERY [facility] Jan 10, 2024 01:30 PM AMBULATORY - SURGERY [facility] Jan 10, 2024 02:30 PM AMBULATORY - NONE LLOYDO ANNE [facility] Jan 11, 2024 01:20 PM AMBULATORY - SURGERY KAYA MOFFETTLizy [facility] Jan 19, 2024 08:00 AM [facility] Jan 25, 2024 10:00 AM AMBULATORY - REHAB MEDICIN E [facility] Jan 31, 2024 12:00 PM AMBULATORY - MEDICINE ALBERTO DEAN [facility] Feb 01, 2024 01:00 PM AMBULATORY - NONE JODIE RODRÍGUEZ [facility] Feb 01, 2024 01:30 PM AMBULATORY - SURGERY KAYA AYALA [facility] Lab Results: +/- 30 days of [...] Range Comment Oct 24, 2023 01:17 PM [facility] HEMOGLOBIN A1C Specimen Type: BLOOD Comment: Values [...] 11:33 PM Reporting Lab: [facility] [id number] Performing Lab: [facility] [id number] HEMOGLOBIN A1C 5.5 4.0-6.0 Oct 24, 2023 01:17 PM [facility] B 12 Specimen Type: SERUM No comment entered. Ordering Provider: LES PAULINO Report Released Date/Time: Jul 28, 2023 11:33 PM Reporting Lab: [facility] [id number] Performing Lab: [facility] [id number] B 12 316 pg/mL 213-816 Oct 24, 2023 01:17 PM [facility] FOLATE Specimen Type: SERUM No comment entered. Ordering Provider: LES PAULINO Report Released Date/Time: Jul 28, 2023 11:33 PM Reporting Lab: [facility] [id number] Performing Lab: [facility] [id number] FOLATE 8.1 ng/mL >7.0 Oct 24, 2023 01:17 PM [facility] LIPID PANEL,NON-FASTING Specimen Type: PLASMA No comment entered. Ordering Provider: LES PAULINO Report Released Date/Time: Jul 28, 2023 11:33 PM Reporting Lab: [facility] [id number] Performing Lab: [facility] [phone] CHOLESTEROL 150 mg/dL <199 .HDL 54 mg/dL >40 LDL CALCULATION 84 mg/dL <99 VLDL CALCULATION 12 mg/dL <29 NON HDL CHOLESTEROL 96 mg/dL <129 TRIG(NON FASTING) 60 mg/dL <149 Oct 24, 2023 01:17 PM [facility] BASIC METABOLIC PANEL+MG Specimen Type: PLASMA No comment entered. Ordering Provider: LES PAULINO Report Released Date/Time: Jul 28, 2023 11:33 PM Reporting Lab: [facility] [id number] Performing Lab: [facility] [phone] CREATININE 1.0 mg/dL 0.7-1.2 UREA NITROGEN 23 mg/dL 8-26 GLUCOSE 86 mg/dL 70-100 SODIUM 141 mmol/L 136-145 POTASSIUM 4.7 mmol/L 3.5-5.1 CHLORIDE 108 mmol/L H 98-107 CO2 25 mmol/L 22-29 CALCIUM 9.6 mg/dL 8.4-10.2 MAGNESIUM 2.0 mg/dL 1.6-2.6 ANION GAP 8 mmol/L 5-15 .CREAT EGFR(CKD-EPI) 73 >60 Oct 24, 2023 01:17 PM [facility] IRON GROUP Specimen Type: SERUM No comment entered. Ordering Provider: LES PAULINO Report Released Date/Time: Jul 28, 2023 11:33 PM Reporting Lab: [facility] [id number] Performing Lab: [facility] [phone] IRON 83 ug/dL 65-175 TIBC,CALCULAT ED 285 ug/dL 250-425 FERRITIN 150.3 ng/mL 21.8-274.7 IRON SATURATION 29 20-50 TRANSFERRIN 228 mg/dL 163-382 Oct 24, 2023 01:17 PM [facility] CBC Specimen Type: BLOOD No comment entered. Ordering Provider: LES PAULINO Report Released Date/Time: Jul 28, 2023 11:33 PM Reporting Lab: [facility] [phone] Performing Lab: [facility] [phone] WBC 7.64 10*3/uL 4.0-11.0 RBC 4.19 10*6/uL [...] 16 93 0 268.7 42 [place] [facility] Social History: Smoking Status (Most current) [...] 24, 2023 02:30 PM VA-TOBACCO FORMER USER [facility] Tobacco Use History This section includes a history of the smoking, or tobacco-related health factors, that were collected on or before the date of the Encounter. The data comes from the [place] facility where the Encounter took place. Date/Time Smoking Status/Tobacco Use Comment F acility Oct 24, 2023 02:30 PM VA-TOBACCO QUIT 15 YRS OR MORE [facility] Jan 17, 2023 01:00 PM VA-TOBACCO FORMER USER [facility] Jan 17, 2023 01:00 PM VA-TOBACCO QUIT 15 YRS OR MORE [facility] Feb 01, 2022 01:00 PM VA-TOBACCO FORMER USER [facility] Feb 01, 2022 01:00 PM VA-TOBACCO QUIT 15 YRS OR MORE [facility] Feb 02, 2021 01:00 PM VA-TOBACCO FORMER USER [facility] Feb 02, 2021 01:00 PM VA-TOBACCO QUIT 15 YRS OR MORE [facility] Dec 12, 2019 01:25 PM VA-TOBACCO FORMER USER [facility] Dec 12, 2019 01:25 PM VA-TOBACCO QUIT 15 YRS OR MORE [facility] Jun 21, 2018 11:16 AM VA-TOBACCO FORMER USER [facility] Jun 21, 2018 11:16 AM VA-TOBACCO QUIT 15 YRS OR MORE [facility] September 15, 2017 05:29 AM INPT NO TOBACCO USE IN LAST 30 D [facility] Jun 29, 2017 02:21 PM FORMER TOBACCO USER 7Y OR GREATE R [facility] September 16, 2016 05:29 AM INPT NO TOBACCO USE IN LAST 30 D [facility] May 06, 2016 10:21 AM FORMER TOBACCO USER 7Y OR GREATE R [facility] Mar 24, 2016 11:54 AM INPT NO TOBACCO USE IN LAST 30 D [facility] Jun 23, 2015 10:20 AM FORMER TOBACCO USER 7Y OR GREATE R [facility] Jul 04, 2014 02:41 PM FORMER TOBACCO USER 7Y OR GREATE R [facility] Dec 23, 2010 02:12 PM LIFETIME NON-TOBACCO USER [facility] Dec 18, 2010 05:07 PM FORMER TOBACCO USER 7Y OR GREATE R [facility] May 26, 2006 02:20 PM FORMER TOBACCO USER 7Y OR GREATE R [facility] Advance Directives: All historical and current Section [...] 15, 2016 ADVANCE DIRECTIVE DISCUSSION MAUREEN TREVINO [facility] Jul 15, 2016 ADVANCE DIRECTIVE ARIEL TREVINO [facility] Mar 22, 2016 CLINICAL WARNING JAYSONPRUDENCIO [place] [facility] Feb 05, 2011 CLINICAL WARNING LIZETH GABRIEL [facility] Dec 17, 2010 CLINICAL WARNING QUE CAMERON [facility] Aug 26, 2003 ADVANCE DIRECTIVE ELGIN HOOPER FRANCISZoya [facility] Encounter Notes: All associated encounter notes This section contains the clinical notes associated to the Encounter. Date/Time Encounter Note(s) Provider Source Oct 24, 2023 09:24 PM INTERNAL MEDICINE NOTE: LOCAL TITLE: MEDICINE CLINIC NOTE STANDARD TITLE: INTERNAL MEDICINE NOTE DATE OF NOTE: OCT 24, 2023@21:24 ENTRY DATE: OCT 26, 2023@01:24:49 AUTHOR: NONA PAULINO COSIGNER: URGENCY: STATUS: COMPLETED Chief Complaint: Preventive [...] source for the followin. Hypertension (SNOMED CT 27277895) - 24 HR BP Monitor October 2020 - avg BP 124/68, avg HR 68 2. Simple obesity (SNOMED CT 385843576) 3. Gastroesophageal reflux disease (SNOMED CT 172444272) 4. IMPOTENCE, ORGANIC 5. Asthma (SNOMED CT 141665399) 6. ANEMIA NOS 7. HEMATURIA 8. Sleep apnea (SNOMED CT 01304570) 9. Empyema, Pleural * 10. Bigeminy 11. Bradycardia * 12. Cardiomyopathy (SNOMED CT 74604815) 13. Arrhythmia (SNOMED CT 018211859) 14. Cataract nos 15. Pseudophakia 16. Benign prostatic hyperplasia (SNOMED CT 949329204) 17. 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 Intact (Greater than or [...] MD Staff Physician Signed: 10/26/2023 14:19 [facility] Oct 24, 2023 04:01 PM ADMINISTRATIVE [...] provided to the patient is available in [employer]. SCANNED DOCUMENT SIGNATURE NOT REQUIRED Electronically Filed: 10/24/2023 by: NONA PAULINO MD Staff Physician RA JEFFERSONHUL [facility] Oct 24, 2023 02:20 PM INTERNAL MEDICINE [...] ulcers, or a wound from a medical transcription editor or Patient is bed-confined or a wheelchair-user or Patient requires assistance to transfer/change position No, Skin Screen is Negative Home Abuse/Violence Screen Is your home free of abuse and violence? Yes MOVE! Program Screen Body Mass Index (BMI)= 42.4 [place]: Collection DT Specimen Test Name Result Units Ref Range 10/24/2023 13:17 BLOOD !! HEMOGLOBIN A1C 5.5 % 4.0 - 6.0 !! Indicates COMMENTS AVAILABLE...Refer to Interim Lab Report. Saad Mandujano Hgb A1C: No data available [place] Hgb A1C: No data available Point of Care Hgb A1C: POC HGB A1C____ Outpatient Nutrition Screen Body Mass Index (BMI)= 42.4 [place]: Collection DT Specimen Test Name Result Units Ref Range 10/24/2023 13:17 BLOOD !! HEMOGLOBIN A1C 5.5 % 4.0 - 6.0 !! Indicates COMMENTS AVAILABLE...Refer to Interim Lab Report. Saad Mandujano Hgb A1C: No data available [place] Hgb A1C: No data available Point of [...] Not worried about housing near future The reports the following: Within the past 12 months, you worried whether your food would run out before you got money to buy more. Never true Within the past 12 months, the food you bought just didn't last and you didn't have money to get more. Never true Food Assistance Programs [facility] Food Assistance Programs [facility] Entry of Outside Tests/Reports: [...] MURILLO LPN Signed: 10/24/2023 14:35 EMERSON MURILLO [facility]
--- OUTSIDE RECORDS SUMMARY | 2024-01-24 02:26 | XMS_ITS | Encounter Summary ---
Author Name [facility] [place] Address [address] [place] [address] Care Team Providers Care Form Tamping Machine Operator Name Role Phone NONA PAULINO Primary Care Provider [facility] Insurance Providers: All historical and current [...] Name Patient's Relationship to Policy Mandel [facility] (WNR) MEDICARE ADVANTAGE [facility] (WNR) May 02, 2016 [id number] [phone] Duarte PANDYA PATIENT [facility] (WNR) MEDICARE ADVANTAGE [facility] (WNR) May 02, 2016 [id number] [phone] Duarte PANDYA PATIENT Selected Encounter This section includes the information on record at [place] for the Encounter. Date/Time Encounter Type Encounter Description Reason Pro vider Source Oct 24, 2023 02:12 PM Outpatient Encounter PRIMARY CARE/MEDICINE E Encounter Template Text not used by [place] Plan of Treatment: Future Appointments (+ 6 months) and Future Tests (+/- 45 days) The Plan of Treatment section includes future care activities for the patient from all [place] [facility]. This section includes future appointments and [...] 09:41 AM AMBULATORY - NONE [place] [facility] Nov 02, 2023 01:30 PM AMBULATORY - SURG[place] [facility] Nov 08, 2023 05:30 PM AMBULATORY - REHAB MEDICIN E [facility] Dec 13, 2023 11:30 AM AMBULATORY - MEDICINE [facility] Dec 26, 2023 11:00 AM AMBULATORY - REHAB MEDICIN E [facility] Dec 28, 2023 01:30 PM AMBULATORY - SURGERY [facility] Jan 10, 2024 01:30 PM AMBULATORY - SURGERY [facility] Jan 10, 2024 02:30 PM AMBULATORY - NONE [place] [facility] Jan 11, 2024 01:20 PM AMBULATORY - SURGERY [place] [facility] Jan 19, 2024 08:00 AM [facility] Jan 25, 2024 10:00 AM AMBULATORY - REHAB MEDICIN E [facility] Jan 31, 2024 12:00 PM [facility] Feb 01, 2024 01:00 PM [facility] Feb 01, 2024 01:30 PM AMBULATORY - SURGERY [facility] Lab Results: +/- 30 days of the encounter This section includes the Chemistry and Hematology Lab Results on record with [place] for the patient. Radiology Reports and Pathology Reports are provided separately, in subsequent sections. Lab Results This section contains the Chemistry/Hematology Results that were resulted 30 days before or 30 daysafter the date of the Encounter. Date/Time Source Result Type Result - Unit Interpretation Reference Range Comment Oct 24, 2023 01:17 PM [facility] HEMOGLOBIN A1C Specimen Type: [...] Jul 28, 2023 11:33 PM Reporting Lab: [facility] [id number] Performing Lab: [facility] [id number] HEMOGLOBIN A1C 5.5 4.0-6.0 Oct 24, 2023 01:17 PM [facility] B 12 Specimen Type: SERUM No comment entered. Ordering Provider: LES PAULINO Report Released Date/Time: Jul 28, 2023 11:33 PM Reporting Lab: [facility] [id number] Performing Lab: [facility] [address] B 12 316 pg/mL 213-816 Oct 24, 2023 01:17 PM [facility] FOLATE Specimen Type: SERUM No comment entered. Ordering Provider: LES PAULINO Report Released Date/Time: Jul 28, 2023 11:33 PM Reporting Lab: [facility] [id number] Performing Lab: [facility] [phone] FOLATE 8.1 ng/mL >7.0 Oct 24, 2023 01:17 PM [facility] BASIC METABOLIC PANEL+MG Specimen Type: PLASMA No comment entered. Ordering Provider: LES PAULINO Report Released Date/Time: Jul 28, 2023 11:33 PM Reporting Lab: [facility] [id number] Performing Lab: [facility] [address] CREATININE 1.0 mg/dL 0.7-1.2 UREA NITROGEN 23 mg/dL 8-26 GLUCOSE 86 mg/dL 70-100 SODIUM 141 mmol/L 136-145 POTASSIUM 4.7 mmol/L 3.5-5.1 CHLORIDE 108 mmol/L H 98-107 CO2 25 mmol/L 22-29 CALCIUM 9.6 mg/dL 8.4-10.2 MAGNESIUM 2.0 mg/dL 1.6-2.6 ANION GAP 8 mmol/L 5-15 .CREAT EGFR(CKD-EPI) 73 >60 Oct 24, 2023 01:17 PM [facility] IRON GROUP Specimen Type: SERUM No comment entered. Ordering Provider: LES PAULINO Report Released Date/Time: Jul 28, 2023 11:33 PM Reporting Lab: [facility] [id number] Performing Lab: [facility] [address] IRON 83 ug/dL 65-175 TIBC,CALCULAT ED 285 ug/dL 250-425 FERRITIN 150.3 ng/mL 21.8-274.7 IRON SATURATION 29 20-50 TRANSFERRIN 228 mg/dL 163-382 Oct 24, 2023 01:17 PM [facility] LIPID PANEL,NON-FASTING Specimen Type: PLASMA No comment entered. Ordering Provider: LES PAULINO Report Released Date/Time: Jul 28, 2023 11:33 PM Reporting Lab: [facility] [phone] Performing Lab: [facility] [address] CHOLESTEROL 150 mg/dL <199 .HDL 54 mg/dL >40 LDL CALCULATION 84 mg/dL <99 VLDL CALCULATION 12 mg/dL <29 NON HDL CHOLESTEROL 96 mg/dL <129 TRIG(NON FASTING) 60 mg/dL <149 Oct 24, 2023 01:17 PM [facility] CBC Specimen Type: BLOOD No comment entered. Ordering Provider: LES PAULINO Report Released Date/Time: Jul 28, 2023 11:33 PM Reporting Lab: [facility] [address] Performing Lab: [facility] [address] WBC 7.64 10*3/uL 4.0-11.0 RBC 4.19 10*6/uL [...] 128/68 16 93 0 268.7 42 [place] [facility] Social History: Smoking Status (Most current) and Tobacco Use (All prior to encounter date) This section includes the most current, and the historical, smoking and tobacco- related health factors from the [place] facility where the Encounter took place. Current Smoking Status This section includes the most current smoking, or tobacco-related health factor, from the [place] facility where the Encounter took place. Date/Time Current Smoking Status Comment Facil ity Oct 24, 2023 02:30 PM VA-TOBACCO FORMER USER [facility] Tobacco Use History This section includes a history of the smoking, or tobacco-related health factors, that were collected on or before the date of the Encounter. The data comes from the [place] facility where the Encounter took place. Date/Time Smoking Status/Tobacco Use Comment F acility Oct 24, 2023 02:30 PM VA-TOBACCO QUIT 15 YRS OR MORE [facility] Jan 17, 2023 01:00 PM VA-TOBACCO FORMER USER [facility] Jan 17, 2023 01:00 PM VA-TOBACCO QUIT 15 YRS OR MORE [facility] Feb 01, 2022 01:00 PM VA-TOBACCO FORMER USER [facility] Feb 01, 2022 01:00 PM VA-TOBACCO QUIT 15 YRS OR MORE [facility] Feb 02, 2021 01:00 PM VA-TOBACCO FORMER USER [facility] Feb 02, 2021 01:00 PM VA-TOBACCO QUIT 15 YRS OR MORE [facility] Dec 12, 2019 01:25 PM VA-TOBACCO FORMER USER [facility] Dec 12, 2019 01:25 PM VA-TOBACCO QUIT 15 YRS OR MORE [facility] Jun 21, 2018 11:16 AM VA-TOBACCO FORMER USER [facility] Jun 21, 2018 11:16 AM VA-TOBACCO QUIT 15 YRS OR MORE [facility] September 15, 2017 05:29 AM INPT NO TOBACCO USE IN LAST 30 D [facility] Jun 29, 2017 02:21 PM FORMER TOBACCO USER 7Y OR GREATE R [facility] September 16, 2016 05:29 AM INPT NO TOBACCO USE IN LAST 30 D [facility] May 06, 2016 10:21 AM FORMER TOBACCO USER 7Y OR GREATE R [facility] Mar 24, 2016 11:54 AM INPT NO TOBACCO USE IN LAST 30 D [facility] Jun 23, 2015 10:20 AM FORMER TOBACCO USER 7Y OR GREATE R [facility] Jul 04, 2014 02:41 PM FORMER TOBACCO USER 7Y OR GREATE R [facility] Dec 23, 2010 02:12 PM LIFETIME NON-TOBACCO USER [facility] Dec 18, 2010 05:07 PM FORMER TOBACCO USER 7Y OR GREATE R [facility] May 26, 2006 02:20 PM FORMER TOBACCO USER 7Y OR GREATE R [facility] Advance Directives: All historical and current Section Date Range: From patient's date of to the date document was created. This section includes ALL of a patient's completed or amended [place] Advance and Rescinded Directives. The entries below indicate that a directive exists for the patient, but an actual copy is not included with this document. The data comes from all [place] facilities. Date Advance Directives Provider Source Jul 15, 2016 ADVANCE DIRECTIVE ARIEL TREVINO [facility] Jul 15, 2016 ADVANCE DIRECTIVE DISCUSSION MAUREEN TREVINO [facility] Mar 22, 2016 CLINICAL WARNING PRUDENCIO TYLER [facility] Feb 05, 2011 CLINICAL WARNING [facility] Dec 17, 2010 CLINICAL WARNING QUE CAMERON [facility] Aug 26, 2003 ADVANCE DIRECTIVE [facility] Encounter Notes: All associated encounter notes This [...] treatment. 2. Complete a durable power of assistant attorney general for health care. 3. Complete a living will. ADVANCE DIRECTIVE SCREENING: Does patient have an Advance Directive? The patient has an Advance Directive. Does the patient wish to make any changes or revoke their current Advance Directive? No changes requested at this time. /vincenzo/ RACHEL PERERA Advance Airline Radio Operator Signed: 10/24/2023 14:13 RACHEL PERERA [facility]
--- OUTSIDE RECORDS SUMMARY | 2024-01-24 02:27 | XMS_ITS | Encounter Summary ---
Author Name [facility] [place] Organization [place] Address [address] [place] [id number] Care Team Providers Care Proofreader Name Role Phone NONA PAULINO Primary Care [...] Mandel's Name Patient's Relationship to Policy Mandel [facility] (WNR) MEDICARE ADVANTAGE [facility] (WNR) May 02, 2016 [id number] [phone] Duarte PANDYA PATIENT [facility] (WNR) MEDICARE [facility] (WNR) May 02, 2016 [id number] [phone] Duarte PANDYA PATIENT Selected Encounter This section includes the information on record at [place] for the Encounter. Date/Time Encounter Type Encounter Description Reason Provider Source Oct 25, 2023 05:27 PM HC PRO PHONE CALL 5-10 MIN TELEPHONE/MEDICINE ICD-10-CM G47.39 Other sleep apnea DAVIDVICKI R [facility] Encounter Template Text not used by [place] Assessments - Encounter Diagnoses This section includes the primary and secondary diagnoses documented for the Encounter. Date/Time Primary/Secondary Diagnosis Diagnosis Name Provider Source Oct 25, 2023 05:27 PM PRIMARY Other sleep apnea RADHAVICKI VANG Duarte [facility] Plan of Treatment: Future Appointments (+ 6 months) and Future Tests (+/- 45 days) The Plan of Treatment section includes future care activities for the patient from all [place] treatmentfacilities. This section includes future appointments and future orders which are active, pending or scheduled. Future Appointments This section includes appointments that were scheduled to occur 6 months from the date of the Encounter, up to a maximum of 20 appointments. The data comes from all [place] treatment facilities. Appointment Date/Time Appointment Type Appointme nt Facility Name Oct 27, 2023 09:41 AM AMBULATORY - NONE [facility] Nov 02, 2023 01:30 PM AMBULATORY - SURGERY [facility] Nov 08, 2023 05:30 PM AMBULATORY - REHAB MEDICIN [facility] Dec 13, 2023 11:30 AM AMBULATORY - MEDICINE [facility] Dec 26, 2023 11:00 AM AMBULATORY - REHAB MEDICIN [facility] Dec 28, 2023 01:30 PM AMBULATORY - SURGERY [facility] Jan 10, 2024 01:30 PM AMBULATORY - SURGERY [facility] Jan 10, 2024 02:30 PM [facility] Jan 11, 2024 01:20 PM AMBULATORY - SURGERY [facility] Jan 19, 2024 08:00 AM [facility] Jan 25, 2024 10:00 AM AMBULATORY - REHAB MEDICIN E [facility] Jan 31, 2024 12:00 PM [facility]BUL[facility] - [facility]ICINE [facility] Feb 01, 2024 01:00 PM [facility] Feb 01, 2024 01:30 PM AMBULATORY - SURGERY [facility] Lab Results: +/- 30 days of the encounter This section includes the Chemistry and Hematology Lab Results on record with [place] for the patient. Radiology Reports and Pathology Reports are provided separately, in subsequent sections. Lab Results This section contains the Chemistry/Hematology Results that were resulted 30 days before or 30 daysafter the date of the Encounter. Date/Time Source Result Type Result - Unit Interpretation Reference Range Comment Oct 24, 2023 01:[address] [facility] HEMOGLOBIN A1C Specimen Type: BLOOD Comment: [...] 11:33 PM Reporting Lab: [facility] [id number] Performing Lab: [facility] [address] HEMOGLOBIN A1C 5.5 4.0-6.0 Oct 24, 2023 01:[address] [facility] B 12 Specimen Type: SERUM No comment entered. Ordering Provider: LES PAULINO Report Released Date/Time: Jul 28, 2023 11:33 PM Reporting Lab: [facility] [id number] Performing Lab: [facility] [id number] B 12 316 pg/mL [phone] Oct 24, 2023 01:[address] [facility] FOLATE Specimen Type: SERUM No comment entered. Ordering Provider: LES PAULINO Report Released Date/Time: Jul 28, 2023 11:33 PM Reporting Lab: [facility] [id number] Performing Lab: [facility] [id number] FOLATE 8.1 ng/mL >7.0 Oct 24, 2023 01:[address] [facility] BASIC METABOLIC PANEL+MG Specimen Type: PLASMA No comment entered. Ordering Provider: LES PAULINO Report Released Date/Time: Jul 28, 2023 11:33 PM Reporting Lab: [facility] [id number] Performing Lab: [facility] [address] CREATININE 1.0 mg/dL 0.7-1.2 UREA NITROGEN 23 mg/dL 8-26 GLUCOSE 86 mg/dL 70-100 SODIUM 141 mmol/L 136-145 POTASSIUM 4.7 mmol/L 3.5-5.1 CHLORIDE 108 mmol/L H 98-107 CO2 25 mmol/L 22-29 CALCIUM 9.6 mg/dL 8.4-10.2 MAGNESIUM 2.0 mg/dL 1.6-2.6 ANION GAP 8 mmol/L 5-15 .CREAT EGFR(CKD-EPI) 73 >60 Oct 24, 2023 01:[address] [facility] IRON GROUP Specimen Type: SERUM No comment entered. Ordering Provider: LES PAULINO Report Released Date/Time: Jul 28, 2023 11:33 PM Reporting Lab: [facility] [id number] Performing Lab: [facility] [address] IRON 83 ug/dL 65-175 TIBC,CALCULAT ED 285 ug/dL 250-425 FERRITIN 150.3 ng/mL 21.8-274.7 IRON SATURATION 29 20-50 TRANSFERRIN 228 mg/dL 163-382 Oct 24, 2023 01:[address] [facility] LIPID PANEL,NON-FASTING Specimen Type: PLASMA No comment entered. Ordering Provider: LES PAULINO Report Released Date/Time: Jul 28, 2023 11:33 PM Reporting Lab: [facility] [id number] Performing Lab: [facility] [address] CHOLESTEROL 150 mg/dL <199 .HDL 54 mg/dL >40 LDL CALCULATION 84 mg/dL <99 VLDL CALCULATION 12 mg/dL <29 NON HDL CHOLESTEROL 96 mg/dL <129 TRIG(NON FASTING) 60 mg/dL <149 Oct 24, 2023 01:[address] [facility] CBC Specimen Type: BLOOD No comment entered. Ordering Provider: LES PAULINO Report Released Date/Time: Jul 28, 2023 11:33 PM Reporting Lab: [facility] [address] Performing Lab: [facility] [address] WBC 7.64 10*3/uL 4.0-11.0 RBC 4.19 10*6/uL [...] and tobacco- related health factors from the [place] facility where the Encounter took place. Current Smoking Status This section includes the most current smoking, or tobacco-related health factor, from the [place] facility where the Encounter took place. Date/Time Current Smoking Status Comment Facil ity Oct 24, 2023 02:30 PM VA-TOBACCO FORMER USER [facility] Tobacco Use History This section includes a history of the smoking, or tobacco-related health factors, that were collected on or before the date of the Encounter. The data comes from the [place] facility where the Encounter took place. Date/Time Smoking Status/Tobacco Use Comment F acility Oct 24, 2023 02:30 PM VA-TOBACCO QUIT [address] [facility] Jan 17, 2023 01:00 PM VA-TOBACCO FORMER USER [facility] Jan 17, 2023 01:00 PM VA-TOBACCO QUIT [address] [facility] Feb 01, 2022 01:00 PM VA-TOBACCO FORMER USER [facility] Feb 01, 2022 01:00 PM VA-TOBACCO QUIT [address] [facility] Feb 02, 2021 01:00 PM VA-TOBACCO FORMER USER [facility] Feb 02, 2021 01:00 PM VA-TOBACCO QUIT [address] [facility] Dec 12, 2019 01:25 PM VA-TOBACCO FORMER USER [facility] Dec 12, 2019 01:25 PM VA-TOBACCO QUIT [address] [facility] Jun 21, 2018 11:16 AM VA-TOBACCO FORMER USER [facility] Jun 21, 2018 11:16 AM VA-TOBACCO QUIT [address] [facility] September 15, 2017 05:29 AM INPT NO TOBACCO USE IN LAST 30 D [facility] Jun 29, 2017 02:21 PM FORMER TOBACCO USER 7Y OR GREATE R [facility] September 16, 2016 05:29 AM INPT NO TOBACCO USE IN LAST 30 D [facility] May 06, 2016 10:21 AM FORMER TOBACCO USER 7Y OR GREATE R [facility] Mar 24, 2016 11:54 AM INPT NO TOBACCO USE IN LAST 30 D [facility] Jun 23, 2015 10:20 AM FORMER TOBACCO USER 7Y OR GREATE R [facility] Jul 04, 2014 02:41 PM FORMER TOBACCO USER 7Y OR GREATE R [facility] Dec 23, 2010 02:12 PM LIFETIME NON-TOBACCO USER [facility] Dec 18, 2010 05:07 PM FORMER TOBACCO USER 7Y OR GREATE R [facility] May 26, 2006 02:20 PM FORMER TOBACCO USER 7Y OR GREATE R [facility] Advance Directives: All historical and current Section Date Range: From patient's date of to the date document was created. This section includes ALL of a patient's completed or amended [place] Advance and Rescinded Directives. The entries below indicate that a directive exists for the patient, but an actual copy is not included with this document. The data comes from all [place] facilities. Date Advance Directives Provider Source Jul 15, 2016 ADVANCE DIRECTIVE ARIEL TREVINO [facility] Jul 15, 2016 ADVANCE DIRECTIVE DISCUSSION MAUREEN TREVINO [facility] Mar 22, 2016 CLINICAL WARNING PRUDENCIO TYLER [facility] Feb 05, 2011 CLINICAL WARNING [facility] Dec 17, 2010 CLINICAL WARNING QUE CAMERON [facility] Aug 26, 2003 ADVANCE DIRECTIVE ELGIN HOOPER [facility] Encounter Notes: All associated encounter notes [...] if symptoms aren't improved. /vincenzo/ VICKI HERNANDEZ ELEMENTARY ESL TEACHER Signed: 10/25/2023 17:[address] [facility]
--- OUTSIDE RECORDS SUMMARY | 2024-01-24 02:27 | XMS_ITS | Encounter Summary ---
Author Name Department of [place] Organization [place] Address [address] [place] [address] Care Team Providers Care Base Draw Operator Name Role Phone NONA PAULINO Primary [...] Mandel's Name Patient's Relationship to Policy Mandel [facility] (WNR) MEDICARE ADVANTAGE [facility] (WNR) May 02, 2016 [id number] [phone] Duarte PANDYA PATIENT [facility] (WNR) MEDICARE ADVANTAGE [facility] (WNR) May 02, 2016 [id number] [phone] Duarte PANDYA PATIENT Selected Encounter This section includes the information on record at [place] for the Encounter. Date/Time Encounter Type Encounter Description Reason Provider Source Oct 27, 2023 09:41 AM Outpatient Encounter ADMIN PAT ACTIVTIES (MASNONCT) GINA SILVA Encounter Template Text not used by [place] Plan of Treatment: Future Appointments (+ 6 months) and Future Tests (+/- 45 days) The Plan of Treatment section includes future care activities for the patient from all [place] [facility]. This section includes future appointments and future orders which are active, pending or scheduled. Future Appointments This section includes appointments that were scheduled to occur 6 months from the date of the Encounter, up to a maximum of 20 appointments. The data comes from all [facility]. Appointment Date/Time Appointment Type Appointme nt Facility Name Nov 02, 2023 01:30 PM AMBULATORY - SURGERY [facility] Nov 08, 2023 05:30 PM AMBULATORY - REHAB MEDICIN [facility] Dec 13, 2023 11:30 AM AMBULATORY - MEDICINE [facility] Dec 26, 2023 11:00 AM AMBULATORY - REHAB [facility] Dec 28, 2023 01:30 PM AMBULATORY - SURGERY [facility] Jan 10, 2024 01:30 PM AMBULATORY - SURGERY [facility] Jan 10, 2024 02:30 PM [facility] Jan 11, 2024 01:20 PM AMBULATORY - SURGERY [facility] Jan 19, 2024 08:00 AM [facility] Jan 25, 2024 10:00 AM AMBULATORY - REHAB [facility] Jan 31, 2024 12:00 PM AMBULATORY - MEDICINE [facility] Feb 01, 2024 01:00 PM [facility] Feb 01, 2024 01:30 PM AMBULATORY - SURGERY [facility] Lab Results: +/- 30 days [...] Range Comment Oct 24, 2023 01:17 PM [facility] HEMOGLOBIN A1C Specimen Type: BLOOD [...] 28, 2023 11:33 PM Reporting Lab: [facility] [id number] Performing Lab: [facility] [address] HEMOGLOBIN A1C 5.5 4.0-6.0 Oct 24, 2023 01:17 PM [facility] B 12 Specimen Type: SERUM No comment entered. Ordering Provider: LES PAULINO Report Released Date/Time: Jul 28, 2023 11:33 PM Reporting Lab: [facility] [id number] Performing Lab: [facility] [address] B 12 316 pg/mL [phone] Oct 24, 2023 01:17 PM [facility] FOLATE Specimen Type: SERUM No comment entered. Ordering Provider: LES PAULINO Report Released Date/Time: Jul 28, 2023 11:33 PM Reporting Lab: [facility] [id number] Performing Lab: [facility] [address] FOLATE 8.1 ng/mL >7.0 Oct 24, 2023 01:17 PM [facility] LIPID PANEL,NON-FASTING Specimen Type: PLASMA No comment entered. Ordering Provider: LES PAULINO Report Released Date/Time: Jul 28, 2023 11:33 PM Reporting Lab: [facility] [address] Performing Lab: [facility] [address] CHOLESTEROL 150 mg/dL <199 .HDL 54 mg/dL >40 LDL CALCULATION 84 mg/dL <99 VLDL CALCULATION 12 mg/dL <29 NON HDL CHOLESTEROL 96 mg/dL <129 TRIG(NON FASTING) 60 mg/dL <149 Oct 24, 2023 01:17 PM [facility] BASIC METABOLIC PANEL+MG Specimen Type: PLASMA No comment entered. Ordering Provider: LES PAULINO Report Released Date/Time: Jul 28, 2023 11:33 PM Reporting Lab: [facility] [id number] Performing Lab: [facility] [address] CREATININE 1.0 mg/dL 0.7-1.2 UREA NITROGEN 23 mg/dL 8-26 GLUCOSE 86 mg/dL 70-100 SODIUM 141 mmol/L 136-145 POTASSIUM 4.7 mmol/L 3.5-5.1 CHLORIDE 108 mmol/L H 98-107 CO2 25 mmol/L 22-29 CALCIUM 9.6 mg/dL 8.4-10.2 MAGNESIUM 2.0 mg/dL 1.6-2.6 ANION GAP 8 mmol/L 5-15 .CREAT EGFR(CKD-EPI) 73 >60 Oct 24, 2023 01:17 PM [facility] IRON GROUP Specimen Type: SERUM No comment entered. Ordering Provider: LES PAULINO Report Released Date/Time: Jul 28, 2023 11:33 PM Reporting Lab: [facility] [address] Performing Lab: [facility] [address] IRON 83 ug/dL 65-175 TIBC,CALCULAT ED 285 ug/dL 250-425 FERRITIN 150.3 ng/mL 21.8-274.7 IRON SATURATION 29 20-50 TRANSFERRIN 228 mg/dL 163-382 Oct 24, 2023 01:17 PM [facility] CBC Specimen Type: BLOOD No comment entered. Ordering Provider: LES PAULINO Report Released Date/Time: Jul 28, 2023 11:33 PM Reporting Lab: [facility] [address] Performing Lab: [facility] [address] WBC 7.64 10*3/uL 4.0-11.0 RBC 4.19 10*6/uL [...] 24, 2023 02:30 PM [facility] Y[facility] OR [facility] Jan 17, 2023 01:00 PM VA-TOBACCO FORMER USER [facility] Jan 17, 2023 01:00 PM [...] NO TOBACCO USE IN LAST 30 D [facility] Jun 29, 2017 02:21 PM FORMER TOBACCO USER 7Y OR GREATE R [facility] September 16, 2016 05:29 AM INPT NO TOBACCO USE IN LAST 30 D [facility] May 06, 2016 10:21 AM FORMER TOBACCO USER 7Y OR GREATE R [facility] Mar 24, 2016 11:54 AM INPT NO TOBACCO USE IN LAST 30 D [facility] Jun 23, 2015 10:20 AM FORMER [...] 2016 ADVANCE DIRECTIVE DISCUSSION MAUREEN TREVINO [facility] Jul 15, 2016 ADVANCE DIRECTIVE ARIEL TREVINO [facility] Mar 22, 2016 CLINICAL WARNING PRUDENCIO TYLER [facility] Feb 05, 2011 CLINICAL [facility] Dec 17, 2010 CLINICAL WARNING QUE CAMERON [facility] Aug 26, 2003 ADVANCE DIRECTIVE ELGIN HOOPER [facility] Encounter Notes: All associated encounter notes This section contains the clinical notes associated to the Encounter. Date/Time Encounter Note(s) Provider Source Oct 28, 2023 10:50 AM ADDENDUM: LOCAL TITLE: Addendum STANDARD TITLE: ADDENDUM DATE OF NOTE: OCT 28, 2023@10:50:01 ENTRY DATE: OCT 28, 2023@10:50:02 AUTHOR: XAVIER GREGORIO COSIGNER: URGENCY: STATUS: COMPLETED [place] was seen in a Community ED. Records uploaded to chart. Please review and follow up as appropriate. /vincenzo/ XAVIER GREGORIO ...[employer] Ranger Signed: 10/28/2023 10:50 Receipt Acknowledged By: 10/28/2023 10:59 /es/ GAURAV CRABTREE RN 10/28/2023 12:22 /es/ DANIELA CLAYTON MD STAFF PHYSICIAN for [place]ENDRA [place] --- Original Document --- 10/26/23 [facility] PRESENTING CARE COORD PLAN NOTE: Emergency Notification Intake Date Presenting to the Facility: Sep Method of Contact: Submitted to Centralized Call Center Notification ID: [id number] [facility] Referral #: [facility] Name: Hospital: [place] Address: [address] City: [place] State: [place] Zip Code: [address] Phone : [facility] Point of Contact: Name: SOFIA Chief complaint: CELLULITIS IN RIGHT LEG Primary Diagnosis: Disposition Unknown at time of intake note entry /es/ MARYBETH PANDYA CHILDREN LIBRARIAN (AOD) Signed: 10/27/2023 09:44 Receipt Acknowledged By: 10/27/2023 12:03 /vincenzo/ Berkley Graff MA, PHN, RN-BC players assistant Continuity Writer for GINA SILVA 10/27/2023 ADDENDUM STATUS: COMPLETED Forwarding per social split to the surrogate CCUM RN for continuity of care. /vincenzo/ Berlkey Graff MA, PHN, RN-BC players assistant Continuity Writer Signed: 10/27/2023 12:02 Receipt Acknowledged By: 10/27/2023 13:56 /es/ NICOLE GRAY DENTAL SURGERY DOCTOR [facility] TECHNOLOGY SALES REPRESENTATIVE SLIDE MACHINE TENDER 10/28/2023 ADDENDUM STATUS: COMPLETED Records requested and will be uploaded via [employer] when received. /vincenzo/ XAVIER VieiraAdvanced National Park Ranger Signed: 10/28/2023 09:40 Receipt Acknowledged By: 10/28/2023 10:16 /vnicenzo/ GAURAV CRABTREE RN 10/26/2023 ADDENDUM STATUS: COMPLETED [facility] Scanned Document - Addendum. ED records 10/26/2023 [facility] SCANNED DOCUMENT SIGNATURE NOT REQUIRED Electronically Filed: 10/28/2023 by: XAVIER GREGORIO .AnahiAdvanced National Park Ranger XAVIER GREGORIO [facility] Oct 28, 2023 09:40 AM ADDENDUM: LOCAL TITLE: Addendum STANDARD TITLE: ADDENDUM DATE OF NOTE: OCT 28, 2023@09:40:14 ENTRY DATE: OCT 28, 2023@09:40:15 AUTHOR: XAVIER GREGORIO EXP COSIGNER: URGENCY: STATUS: COMPLETED Records requested and will be uploaded via [employer] when received. /vincenzo/ XAVIER GREGORIO .AnahiAdvanced National Park Ranger Signed: 10/28/2023 09:40 Receipt Acknowledged By: 10/28/2023 10:16 /vincenzo/ GAURAV CRABTREE RN --- Original Document --- 10/26/23 [facility] SELF PRESENTING CARE COORD PLAN NOTE: Emergency Notification Intake Date Presenting to the Facility: Sep Method of Contact: Submitted to Centralized Call Center Notification ID: [id number] [facility] Referral #: [facility] Name: Hospital[place] Address: [address] [place] [address] City: [place] State: [place] Zip Code: [address] Phone : [facility] Point of Contact: Name: SOFIA Chief complaint: CELLULITIS IN RIGHT LEG Primary Diagnosis: Disposition Unknown at time of intake note entry /vincenzo/ MARYBETH PANDYA CHILDREN LIBRARIAN (AOD) Signed: 10/27/2023 09:44 Receipt Acknowledged By: 10/27/2023 12:03 /vincenzo/ Berkley Graff MA, PHN, RN-BC players assistant Continuity Writer for GINA SILVA 10/27/2023 ADDENDUM STATUS: COMPLETED Forwarding per social split to the surrogate CCUM RN for continuity of care. /vincenzo/ Berkley Graff MA, PHN, RN-BC players assistant Continuity Writer Signed: 10/27/2023 12:02 Receipt Acknowledged By: 10/27/2023 13:56 /vincenzo/ NICOLE GRAY RN BSN [facility] TECHNOLOGY SALES REPRESENTATIVE SLIDE MACHINE TENDER XAVIER GREGORIO [facility] Oct 27, 2023 12:02 PM ADDENDUM: LOCAL TITLE: Addendum STANDARD TITLE: ADDENDUM DATE OF NOTE: OCT 27, 2023@12:02:37 ENTRY DATE: OCT 27, 2023@12:02:38 AUTHOR: BERKLEY GRAFF EXP COSIGNER: URGENCY: STATUS: COMPLETED Forwarding per social split to the surrogate CCUM RN for continuity of care. /vincenzo/ Berkley Graff MA PHN, RN-BC players assistant Continuity Writer Signed: 10/27/2023 12:02 Receipt Acknowledged By: 10/27/2023 13:56 /vincenzo/ NICOLE GRAY RN BSN [facility] TECHNOLOGY SALES REPRESENTATIVE SLIDE MACHINE TENDER --- Original Document --- 10/26/23 [facility]F PRESENTING CARE COORD PLAN NOTE: Emergency Notification Intake Date Presenting to the Facility: Sep Method of Contact: Submitted to Centralized Call Center Notification ID: [id number] [facility] Referral #: [facility] Name: Hospital[place] Address: [address] [place] [address] City: [place] State: [place] Zip Code: [address] Phone : [facility] Point of Contact: Name: SOFIA Chief complaint: CELLULITIS IN RIGHT LEG Primary Diagnosis: Disposition Unknown at time of intake note entry /nichole PANDYA CHILDREN LIBRARIAN (AOD) Signed: 10/27/2023 09:44 Receipt Acknowledged By: 10/27/2023 12:03 /vincenzo/ Berkley Graff MA, PHN, RN-BC players assistant Continuity Writer for GINA SILVA BERKLEY GRAFF [facility] Oct 26, 2023 09:41 AM NONVA NOTE: LOCAL TITLE: [facility] SELF PRESENTING CARE COORD PLAN STANDARD TITLE: NONVA NOTE DATE OF NOTE: OCT 26, 2023@09:41 ENTRY DATE: OCT 27, 2023@09:41:54 AUTHOR: MARYBETH PANDYA COSIGNER: URGENCY: STATUS: COMPLETED [facility]F PRESENTING CARE COORD PLAN NOTE Has ADDENDA Emergency Notification Intake Date Presenting to the Facility: Sep Method of Contact: Submitted to Centralized Call Center Notification ID: [id number] [facility] Referral #: [facility] Name: Hospital[place] Address: [address] City: [place] State: [place] Zip Code: [address] Phone : Community Facility Point of Contact: Name: SOFIA Chief complaint: CELLULITIS IN RIGHT LEG Primary Diagnosis: Disposition Unknown at time of intake note entry /vincenzo/ MARYBETH PANDYA CHILDREN LIBRARIAN (AOD) Signed: 10/27/2023 09:44 Receipt Acknowledged By: 10/27/2023 12:03 /es/ Berkley Graff MA, PHN, RN-BC players assistant Continuity Writer for GINA SILVA 10/27/2023 ADDENDUM STATUS: COMPLETED Forwarding per social split to the surrogate CCUM RN for continuity of care. /vincenzo/ Berkley Graff MA, PHN, RN-BC players assistant Continuity Writer Signed: 10/27/2023 12:02 Receipt Acknowledged By: 10/27/2023 13:56 /vincenzo/ NICOLE GRAY DENTAL SURGERY DOCTOR [facility] TECHNOLOGY SALES REPRESENTATIVE SLIDE MACHINE TENDER 10/28/2023 ADDENDUM STATUS: COMPLETED Records requested and will be uploaded via [employer] when received. /vincenzo/ XAVIER GREGORIO .AnahiAdvanced National Park Ranger Signed: 10/28/2023 09:40 Receipt Acknowledged By: 10/28/2023 10:16 /vincenzo/ GAURAV CRABTREE RN 10/26/2023 ADDENDUM STATUS: COMPLETED VistA Imaging Scanned Document - Addendum. ED records 10/26/2023 [facility] SCANNED DOCUMENT SIGNATURE NOT REQUIRED Electronically Filed: 10/28/2023 by: XAVIER GREGORIO .AnahiAdvanced National Park Ranger 10/28/2023 ADDENDUM STATUS: COMPLETED was seen in a Community ED. Records uploaded to chart. Please review and follow up as appropriate. /vincenzo/ XAVIER GREGORIO .AnahiAdvanced National Park Ranger Signed: 10/28/2023 10:50 Receipt Acknowledged By: * AWAITING SIGNATURE * GAURAV CRABTREE * AWAITING SIGNATURE * NONA PAULINO ARNETTA [facility]
--- OUTSIDE RECORDS SUMMARY | 2024-01-24 02:28 | XMS_ITS | Encounter Summary ---
Author Name [place] Address [address] [place] [address] Care Team Providers Care Alternative Education Teacher Name Role Phone NONA PAULINO Primary [facility] Provider [facility] Insurance Providers: All historical and [...] Mandel's Name Patient's Relationship to Policy Mandel [facility] (WNR) MEDICARE [facility] ([facility]) May 02, 2016 [id number] [phone] [facility] (WNR) MEDICARE [facility] ([facility]) May 02, 2016 [id number] [phone] Duarte PANDYA PATIENT Selected Encounter This section includes the information on record at [place] for the Encounter. Date/Time Encounter Type Encounter Description Reason Provider Source Dec 28, 2023 01:30 PM OFF/OP EST AUGUST X REQ PHY/QHP AUDIOLOGY ICD-10-CM H90.3 Sensorineural hearing loss, bilateral ALLSTADT,[place] ON PV IHE Encounter Template Text not used by [facility] Assessments - Encounter Diagnoses This section includes the primary and secondary diagnoses documented for the Encounter. Date/Time Primary/Secondary Diagnosis Diagnosis Name Provider Source Dec 28, 2023 01:08 PM PRIMARY Sensorineural hearing loss, bilateral ALLSTADT,[place] ON PV [facility] Dec 28, 2023 01:08 PM SECONDARY Impacted cerumen, bilateral RUHR,SOFIA A [facility] Plan of Treatment: Future Appointments (+ 6 months) and Future Tests (+/- 45 days) The Plan of Treatment section includes future care activities for the patient from all [place] [facility] This section includes future appointments and future orders which are active, pending or scheduled. Future Appointments This section includes appointments that were scheduled to occur 6 months from the date of the Encounter, up to a maximum of 20 appointments. The data comes from all [facility]. Appointment Date/Time Appointment Type Appointme nt Facility Name Jan 10, 2024 01:30 PM AMBULATORY - SURGERY [facility] Jan 10, 2024 02:30 PM AMBULATORY - NONE [facility] Jan 11, 2024 01:20 PM AMBULATORY - SURGERY [facility] Jan 19, 2024 08:00 AM AMBULATORY - NONE [facility] Jan 25, 2024 10:00 AM AMBULATORY - REHAB MEDICIN E [facility] Jan 31, 2024 12:00 PM [facility] Feb 01, 2024 01:00 PM AMBULATORY - NONE [facility] Feb 01, 2024 01:30 PM AMBULATORY - SURGERY [facility] Social History: Smoking Status (Most current) and Tobacco Use (All prior to encounter date) This section includes the most current, and the historical, smoking and tobacco- related health factors from the [place] facility where the Encounter took place. Current Smoking Status This section includes the most current smoking, or tobacco-related health factor, from the [place] facility where the Encounter took place. Date/Time Current Smoking Status Comment Nette ity Oct 24, 2023 02:30 PM VA-TOBACCO FORMER USER [facility] Tobacco Use History This section includes a history of the smoking, or tobacco-related health factors, that were collected on or before the date of the Encounter. The data comes from the [place] facility where the Encounter took place. Date/Time Smoking Status/Tobacco Use Comment F acility Oct 24, 2023 02:30 PM VA-TOBACCO QUIT 15 YRS OR MORE [facility] Jan 17, 2023 01:00 PM VA-TOBACCO FORMER USER [facility] Jan 17, 2023 01:00 PM VA-TOBACCO QUIT 15 YRS OR MORE [facility] Feb 01, 2022 01:00 PM VA-TOBACCO FORMER USER [facility] Feb 01, 2022 01:00 PM VA-TOBACCO QUIT 15 YRS OR MORE [facility] Feb 02, 2021 01:00 PM VA-TOBACCO FORMER USER [facility] Feb 02, 2021 01:00 PM VA-TOBACCO QUIT 15 YRS OR MORE [facility] Dec 12, 2019 01:25 PM VA-TOBACCO FORMER USER [facility] Dec 12, 2019 01:25 PM VA-TOBACCO QUIT 15 YRS OR MORE [facility] Jun 21, 2018 11:16 AM VA-TOBACCO FORMER USER [facility] Jun 21, 2018 11:16 AM VA-TOBACCO QUIT 15 YRS OR MORE [facility] September 15, 2017 05:29 AM INPT NO TOBACCO USE IN LAST 30 D [facility] Jun 29, 2017 02:21 PM FORMER TOBACCO USER 7Y OR GREATE R [facility] September 16, 2016 05:29 AM INPT NO TOBACCO USE IN LAST 30 D [facility] May 06, 2016 10:21 AM FORMER TOBACCO USER 7Y OR GREATE R [facility] Mar 24, 2016 11:54 AM INPT NO TOBACCO USE IN LAST 30 D [facility] Jun 23, 2015 10:20 AM FORMER TOBACCO USER 7Y OR GREATE R [facility] Jul 04, 2014 02:41 PM FORMER TOBACCO USER 7Y OR GREATE R [facility] Dec 23, 2010 02:12 PM LIFETIME NON-TOBACCO USER [facility] Dec 18, 2010 05:07 PM FORMER TOBACCO USER 7Y OR GREATE R [facility] May 26, 2006 02:20 PM FORMER TOBACCO USER 7Y OR GREATE R [facility] Advance Directives: All historical and current Section Date Range: From patient's date of to the date document was created. This section includes ALL of a patient's completed or amended [place] Advance and Rescinded Directives. The entries below indicate that a directive exists for the patient, but an actual copy is not included with this document. The data comes from all [facility]. Date Advance Directives Provider Source Jul 15, 2016 ADVANCE DIRECTIVE DISCUSSION MAUREEN TREVINO Brook [facility] Jul 15, 2016 ADVANCE DIRECTIVE BELINDAARIEL Brook [facility] Mar 22, 2016 CLINICAL WARNING PRUDENCIO TYLER [facility] Feb 05, 2011 CLINICAL WARNING LIZETH GABRIEL [facility] Dec 17, 2010 CLINICAL WARNING QUE CAMERON [facility] Aug 26, [address] ELGIN OHOPER [facility] Radiology Reports: +/- 30 [...] the Encounter. The data comes from all [place] treatment facilities. 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 TECHNIQUE: 3 view(s) of the right foot, submitted to the [place] National Teleradiology Program (NTP) for interpretation. FINDINGS: No acute displaced fracture or dislocation. Similar medial subluxation of the 2nd - 4th toes at the metatarsophalangeal joints. No definite radiographic evidence of osteomyelitis. Degenerative changes, most noted in the mid foot with similar overlying dorsal soft tissue thickening. Plantar calcaneal enthesophyte. Vascular calcifications. No radiopaque foreign body. Impression: No acute displaced fracture/ dislocation or definite radiographic evidence of osteomyelitis. READING PHYSICIAN: Wili Solorzano MD -[id number] 01/12/2024 12:16 CDT [facility] National Teleradiology Program [phone] (For Medical Practitioner Use Only) Attention Patients / Veterans: If you have questions or concerns about these test results, please contact your ordering provider or primary care team. Primary Interpreting Staff: RADIOLOGY,OUTSIDE SERVICE, Staff Physician / RADIOLOGY,OUTSIDE SERVICE [facility] Pathology Reports: +/- 30 days of the encounter Pathology Reports For cases when an order for pathology services may have been completed prior to the date of the Encounter, the report list includes the Pathology Reports that were completed up to 30 days before dateof the Encounter. For cases when an order for pathology services may have been completed after the date of the Encounter, the report list also includes the Pathology Reports that were completed up to30 days after date of the Encounter. The data comes from all [place] treatment facilities. Date/Time Pathology Report Provider Source Jan 10, 2024 03:00 PM LR MICROBIOLOGY RE PORT: Reporting Lab: [facility] [CLIA# [id number]] [place] [address] Accession [UID]: [id number] [[id number]] Received: Jan 10, 2024@15:09 Collection sample: TISSUE Collection date: Jan 10, 2024 15:00 Provider: PAMELA SANDHU Comment on specimen: 5th MPJ RIGHT, RECEIVED IN ANAEROBIC TRANSPORT VIAL Test(s) ordered: ANAEROBIC CULTURE............. completed: Jan 18, 2024 * BACTERIOLOGY FINAL REPORT => Jan 18, 2024 13:34 TECH CODE: [id number] CULTURE RESULTS: CUTIBACTERIUM ACNES - Quantity: 2+ Comment: No susceptibility testing performed. Bacteriology Remark(s): THIS REPORT IS FINAL =--=--=--=--=--=--=--=--=--=--=--=- -=--=--=--=--=--=--=--=--=--=--=--= --=--=-- Performing Laboratory: Bacteriology Report Performed By: [facility] [CLIA# [id number]] [place] [address] [facility] Jan 10, 2024 03:00 PM LR MICROBIOLOGY RE PORT: Reporting Lab: [facility] [CLIA# [id number]] [place] [address] Accession [UID]: [id number] [[id number]] Received: Jan 10, 2024@15:09 Collection sample: TISSUE Collection date: Jan 10, 2024 15:00 Provider: PAMELA SANDHU Comment on specimen: 5th MPJ RIGHT, RECEIVED IN ANAEROBIC TRANSPORT VIAL Test(s) ordered: GRAM STAIN.................... completed: Jan 10, 2024 15:51 CULTURE & SUSCEPTIBILITY...... completed: Jan 21, 2024 * BACTERIOLOGY FINAL REPORT => Jan 21, 2024 12:48 TECH CODE: [id number] GRAM STAIN: DIRECT SMEAR of specimen before culturing shows: 1+ PMNS 2+ EPITHELIAL CELLS NO ORGANISMS SEEN CULTURE PENDING CULTURE RESULTS: STAPHYLOCOCCUS WARNERI - Quantity: 1+ Comment: No susceptibility testing performed. Bacteriology Remark(s): THIS REPORT IS FINAL =--=--=--=--=--=--=--=--=--=--=--=- -=--=--=--=--=--=--=--=--=--=--=--= --=--=-- Performing Laboratory: Bacteriology Report Performed By: [facility] [CLIA# [id number]] [place] [address] [facility] Encounter Notes: All associated encounter notes This section contains the clinical notes associated to the Encounter. Date/Time Encounter Note(s) Provider Source Dec 28, 2023 01:39 PM AUDIOLOGY NOTE: LOCAL TITLE: AUDIOLOGY CLINIC NURSING NOTE STANDARD TITLE: AUDIOLOGY NOTE DATE OF NOTE: DEC 28, 2023@13:39 ENTRY DATE: DEC 28, 2023@13:39:12 AUTHOR: SOFIA HAYES EXP COSIGNER: URGENCY: STATUS: COMPLETED Reason for visit: Examination of hearing. Cerumen removal. Effusion (drainage) in ear canals: No Recent Otalgia (pain) in ear canals: No Pruritus (itching) in ear canals: No History of ear surgery: No Cerumen Removed: Yes AD soft impaction removed soft impaction removed Patient tolerated procedure. Nurse Patient Education: Barriers to Learning/Special Needs:Hearing Limitations Participant(s) can repeat instructions to Continue with current ear hygiene Refrain from using cotton swabs in ears Use Mineral oil therapy Ear Care handout provided. PLAN: Follow up in: PRN (as needed) /vincenzo/ SOFIA HAYES LPN LICENSED PRACTICAL NURSE Signed: 12/28/2023 16:21 SOFIA HAYES [facility] Dec 28, 2023 01:08 PM AUDIOLOGY NOTE: LOCAL TITLE: AUDIOLOGY CLINIC NOTE STANDARD TITLE: AUDIOLOGY NOTE DATE OF NOTE: DEC 28, 2023@13:08 ENTRY DATE: DEC 28, 2023@13:08:39 AUTHOR: YUN ARANDA EXP COSIGNER: URGENCY: STATUS: COMPLETED DIAGNOSIS: Encounter for Fitting and Adjustment of Hearing Aid Sensorineural Hearing Loss Tinnitus Reason for visit: Hearing aid service Otoscopy: Cerumen removal by nursing staff. Clear canals, normal anatomy bilaterally post- procedure. HISTORY: Patient seen for a hearing aid service/hearing aid check. Hearing Aids (right/left): 05/15/21 K[facility] MICHAEL CIC R [id number] 06/10/24 11/08/21 05/15/21 [facility] MICHAEL CIC L [id number] 06/10/24 11/08/21 BACKUP AIDS: 03/17/17 KALEY MUSE I2400 CIC R [id number] 03/17/17 [facility] MUSE I2400 CIC L [id number] The following hearing aid problem/s were presented: RIGHT HEARING AID - not hearing well LEFT HEARING AID - not hearing well Action: -Did a quick pure tone check of the vet's ears to see if he had a change in hearing. Results were stable. -Cleaned and checked vet's hearing aids. The left aid had a plugged microphone cover which was replaced. -Re-programmed his hearing aids based on today's test and verified audibility with real-ear measures. Plan: -RTC in the spring to have his ears checked for wax and hearing aids serviced. /vincenzo/ SIMON JOHNSON STAFF RAILROAD SUPERVISOR OF ENGINES Signed: 12/28/2023 14:08 YUN ARANDA [facility]
--- OUTSIDE RECORDS SUMMARY | 2024-01-24 02:28 | XMS_ITS | Encounter Summary ---
Author Name [place] Address [address] [place] [id number] Care Team Providers Care Director Special Education Name Role Phone NONA PAULINO Primary Care [...] Mandel's Name Patient's Relationship to Policy Mandel [facility] (WNR) MEDICARE ADVANTAGE [facility] (WNR) May 02, 2016 [id number] [phone] Duarte PANDYA PATIENT [facility] (WNR) MEDICARE ADVANTAGE [facility] (WNR) May 02, 2016 [id number] [phone] Duarte PANDYA PATIENT Selected Encounter This section includes the information on record at [place] for the Encounter. Date/Time Encounter Type Encounter Description Reason Provider Source Oct 27, 2023 01:01 PM Outpatient Encounter TELEPHONE PRIMARY CARE ICD-10-CM I10 Essential (primary) hypertension Martín CRABTREE Encounter Template Text not used by [place] Assessments - Encounter Diagnoses This section includes the primary and secondary diagnoses documented for the Encounter. Date/Time Primary/Secondary Diagnosis Diagnosis Name Provider Source Oct 27, 2023 01:01 PM PRIMARY Essential (primary) hypertension [facility]ín [facility] Plan of Treatment: Future Appointments (+ 6 months) and Future Tests (+/- 45 days) The Plan of Treatment section includes future care activities for the patient from all [place] [facility]. This section includes future appointments and future orders which are active, pending or scheduled. Future Appointments This section includes appointments that were scheduled to occur 6 months from the date of the Encounter, up to a maximum of 20 appointments. The data comes from all [place] treatment facilities. Appointment Date/Time Appointment Type Appointme nt Facility Name Nov 02, 2023 01:30 PM AMBULATORY - SURGERY [facility] Nov 08, 2023 05:30 PM AMBULATORY - REHAB MEDICIN [facility] Dec 13, 2023 11:30 AM AMBULATORY - MEDICINE [facility] Dec 26, 2023 11:00 AM AMBULATORY - REHAB MEDICIN [facility] Dec 28, 2023 01:30 PM AMBULATORY - SURGERY [facility] Jan 10, 2024 01:30 PM AMBULATORY - SURGERY [facility] Jan 10, 2024 02:30 PM AMBULATORY - NONE [facility] Jan 11, 2024 01:20 PM AMBULATORY - SURGERY [facility] Jan 19, 2024 08:00 AM AMBULATORY - NONE [facility] Jan 25, 2024 10:00 AM AMBULATORY - REHAB MEDICIN [facility] Jan 31, 2024 12:00 PM AMBULATORY - MEDICINE [facility] Feb 01, 2024 01:00 PM AMBULATORY - NONE [facility] Feb 01, 2024 01:30 PM AMBULATORY - SURGERY [facility] Lab Results: +/- 30 days of the encounter This section includes the Chemistry and Hematology Lab Results on record with [place] for the patient. Radiology Reports and Pathology Reports are provided separately, in subsequent sections. Lab Results This section contains the Chemistry/Hematology Results that were resulted 30 days before or 30 daysafter the date of the Encounter. Date/Time Source Result Type Result - Unit Interpretation Reference Range Comment Oct 24, 2023 01:17 PM [facility] HEMOGLOBIN A1C Specimen Type: BLOOD Comment: [...] Jul 28, 2023 11:33 PM Reporting Lab: [facility] [address] Performing Lab: [facility] [address] HEMOGLOBIN A1C 5.5 4.0-6.0 Oct 24, 2023 01:17 PM [facility] B 12 Specimen Type: SERUM No comment entered. Ordering Provider: LES PAULINO Report Released Date/Time: Jul 28, 2023 11:33 PM Reporting Lab: [facility] [address] Performing Lab: [facility] [address] B 12 316 pg/mL 213-816 Oct 24, 2023 01:17 PM [facility] LIPID PANEL,NON-FASTING Specimen Type: PLASMA No comment entered. Ordering Provider: LES PAULINO Report Released Date/Time: Jul 28, 2023 11:33 PM Reporting Lab: [facility] [address] Performing Lab: [facility] [address] CHOLESTEROL 150 mg/dL <199 .HDL 54 mg/dL >40 LDL CALCULATION 84 mg/dL <99 VLDL CALCULATION 12 mg/dL <29 NON HDL CHOLESTEROL 96 mg/dL <129 TRIG(NON FASTING) 60 mg/dL <149 Oct 24, 2023 01:17 PM [facility] FOLATE Specimen Type: SERUM No comment entered. Ordering Provider: LES PAULINO Report Released Date/Time: Jul 28, 2023 11:33 PM Reporting Lab: [facility] [address] Performing Lab: [facility] [address] FOLATE 8.1 ng/mL >7.0 Oct 24, 2023 01:17 PM [facility] BASIC METABOLIC PANEL+MG Specimen Type: PLASMA No comment entered. Ordering Provider: LES PAULINO Report Released Date/Time: Jul 28, 2023 11:33 PM Reporting Lab: [facility] [address] Performing Lab: [facility] [address] CREATININE 1.0 mg/dL 0.7-1.2 UREA NITROGEN 23 mg/dL 8-26 GLUCOSE 86 mg/dL 70-100 SODIUM 141 mmol/L 136-145 POTASSIUM 4.7 mmol/L 3.5-5.1 CHLORIDE 108 mmol/L H 98-107 CO2 25 mmol/L 22-29 CALCIUM 9.6 mg/dL 8.4-10.2 MAGNESIUM 2.0 mg/dL 1.6-2.6 ANION GAP 8 mmol/L 5-15 .CREAT EGFR(CKD-EPI) 73 >60 Oct 24, 2023 01:17 PM [facility] CBC Specimen Type: BLOOD No comment entered. Ordering Provider: LES PAULINO Report Released Date/Time: Jul 28, 2023 11:33 PM Reporting Lab: [facility] [address] Performing Lab: [facility] [address] WBC 7.64 10*3/uL 4.0-11.0 RBC 4.19 10*6/uL L 4.6-6.2 HGB 12.9 g/dL L 13.5-17.9 HCT 39.5 L 41-54 MCV 94.3 fL 80-100 MCH 30.8 pg 27-33 MCHC 32.7 g/dL 32.0-37.5 PLT 213 10*3/uL 150-400 MPV 9.1 fL 7.4-10.4 RDW 13.7 11.5-14.5 Oct 24, 2023 01:17 PM [facility] IRON GROUP Specimen Type: SERUM No comment entered. Ordering Provider: LES PAULINO Report Released Date/Time: Jul 28, 2023 11:33 PM Reporting Lab: [facility] [id number] Performing Lab: [facility] [address] IRON 83 ug/dL 65-175 TIBC,CALCULAT ED 285 ug/dL 250-425 FERRITIN 150.3 ng/mL 21.8-274.7 IRON SATURATION 29 20-50 TRANSFERRIN 228 mg/dL 163-382 Social History: Smoking Status (Most current) and Tobacco Use (All prior to encounter date) This section includes the most current, and the historical, smoking and tobacco- related health factors from the [place] facility where the Encounter took place. Current Smoking Status This section includes the most current smoking, or tobacco-related health factor, from the [place] facility where the Encounter took place. Date/Time Current Smoking Status Comment Facil ity Oct 24, 2023 02:30 PM VA-TOBACCO FORMER USER [facility] Tobacco Use History This section includes a history of the smoking, or tobacco-related health factors, that were collected on or before the date of the Encounter. The data comes from the [place] facility where the Encounter took place. Date/Time Smoking Status/Tobacco Use Comment F acility Oct 24, 2023 02:30 PM VA-TOBACCO QUIT 15 YRS OR MORE [facility] Jan 17, 2023 01:00 PM VA-TOBACCO FORMER USER [facility] Jan 17, 2023 01:00 PM VA-TOBACCO QUIT 15 YRS OR MORE [facility] Feb 01, 2022 01:00 PM VA-TOBACCO FORMER USER [facility] Feb 01, 2022 01:00 PM VA-TOBACCO QUIT 15 YRS OR MORE [facility] Feb 02, 2021 01:00 PM VA-TOBACCO FORMER USER [facility] Feb 02, 2021 01:00 PM VA-TOBACCO QUIT 15 YRS OR MORE [facility] Dec 12, 2019 01:25 PM VA-TOBACCO FORMER USER [facility] Dec 12, 2019 01:25 PM VA-TOBACCO QUIT 15 YRS OR MORE [facility] Jun 21, 2018 11:16 AM VA-TOBACCO FORMER USER [facility] Jun 21, 2018 11:16 AM VA-TOBACCO QUIT 15 YRS OR MORE [facility] September 15, 2017 05:29 AM INPT NO TOBACCO USE IN LAST 30 D [facility] Jun 29, 2017 02:21 PM FORMER TOBACCO USER 7Y OR GREATE R [facility] September 16, 2016 05:29 AM INPT NO TOBACCO USE IN LAST 30 D [facility] May 06, 2016 10:21 AM FORMER TOBACCO USER 7Y OR GREATE R [facility] Mar 24, 2016 11:54 AM INPT NO TOBACCO USE IN LAST 30 D [facility] Jun 23, 2015 10:20 AM FORMER TOBACCO USER 7Y OR GREATE R [facility] Jul 04, 2014 02:41 PM FORMER TOBACCO USER 7Y OR ED[facility] Ramachandran [facility] Dec 23, 2010 02:12 PM LIFETIME NON-TOBACCO USER [facility] Dec 18, 2010 05:07 PM FORMER TOBACCO USER 7Y OR EDWIN Ramachadnran [facility] May 26, 2006 02:20 PM FORMER TOBACCO USER 7Y OR [facility] Duarte [facility] Advance Directives: All historical and current Section Date Range: From patient's date of to the date document was created. This section includes ALL of a patient's completed or amended [place] Advance and Rescinded Directives. The entries below indicate that a directive exists for the patient, but an actual copy is not included with this document. The data comes from all [place] facilities. Date Advance Directives Provider Source Jul 15, 2016 ADVANCE DIRECTIVE ARIEL TREVINO Brook [facility] Jul 15, 2016 ADVANCE DIRECTIVE DISCUSSION MAUREEN TREVINO [facility] Mar 22, 2016 CLINICAL WARNING PRUDENCIO TYLER [facility] Feb 05, 2011 CLINICAL WARN[facility] Dec 17, 2010 CLINICAL WARNING QUE CAMERON [facility] Aug 26, 2003 ADVANCE DIRECTIVE ELGIN HOOPER [facility] Encounter Notes: All associated encounter notes This section contains the clinical notes associated to the Encounter. Date/Time Encounter Note(s) Provider Source Oct 27, 2023 01:01 PM REPORT OF CONTACT: LOCAL TITLE: PATIENT CONTACT NOTE STANDARD TITLE: REPORT OF CONTACT DATE OF NOTE: OCT 27, 2023@13:01 ENTRY DATE: OCT 27, 2023@13:01:10 AUTHOR: GAURAV CRABTREE EXP COSIGNER: URGENCY: STATUS: COMPLETED called to discuss his lower extremity swelling. reports he went to a local urgent care and was told that Amlodipine can contribute to lower extremity swelling. reports he is checking his BP at home and BP runs in the 120's/80's. [place] will begin using his compression socks and elevated his legs above his heart during the day as recommended by the urgent care provider. /vincenzo/ GAURAV CRABTREE RN Signed: 10/27/2023 13:01 GAURAV CRABTREE [facility]
--- OUTSIDE RECORDS SUMMARY | 2024-01-24 02:28 | XMS_ITS | Encounter Summary ---
Author Name Department [place] Organization [place] Address [address] [place] [id number] Care Team Providers Care Braider Setter Name Role Phone NONA PAULINO [facility] Insurance Providers: All historical and current [...] Mandel's Name Patient's Relationship to Policy Mandel [facility] (WNR) MEDICARE ADVANTAGE MCR ([facility]) May 02, 2016 [id number] [phone] Duarte PANDYA PATIENT [facility] (WNR) MEDICARE ADVANTAGE MCR (WNR) May 02, 2016 [id number] [phone] Duarte PANDYA PATIENT Selected Encounter This section includes the information on record at [place] for the Encounter. Date/Time Encounter Type Encounter Description Reason Provider Source September 06, 2023 02:30 PM OFFICE O/P EST MOD 30 MIN AMB ECG MONITORING ICD-10-CM I49.9 Cardiac arrhythmia, unspecified THOLAKANAHALLI ,VENKATAKRISHN A NARTUCKER [facility] Encounter Template Text not used by [place] Assessments - Encounter Diagnoses This section includes the primary and secondary diagnoses documented for the Encounter. Date/Time Primary/Secondary Diagnosis Diagnosis Name Provider Source Dec 20, 2023 01:06 PM PRIMARY Cardiac arrhythmia, unspecified MIRIAM BRISCOE [facility] Dec 20, 2023 01:06 PM SECONDARY Dizziness and giddiness MIRIAM BRISCOE [facility] Plan of Treatment: Future Appointments (+ 6 months) and Future Tests (+/- 45 days) The Plan of Treatment section includes future care activities for the patient from all [place] [facility]. This section includes future appointments and future orders which are active, pending or scheduled. Future Appointments This section includes appointments that were scheduled to occur 6 months from the date of the Encounter, up to a maximum of 20 appointments. The data comes from all [facility]. Appointment Date/Time Appointment Type Appointme nt Facility Name Oct 24, 2023 01:30 PM [facility] [place] [facility] Oct 24, 2023 02:30 PM [facility] Oct 27, 2023 09:41 AM [facility] [place] [facility] Nov 02, 2023 01:30 PM AMBULATORY - SURGERY [facility] Nov 08, 2023 05:30 PM AMBULATORY - REHAB MEDICIN [facility] Dec 13, 2023 11:30 AM [facility] Dec 26, 2023 11:00 AM AMBULATORY - REHAB MEDICIN [facility] Dec 28, 2023 01:30 PM [place] [facility] Jan 10, 2024 01:30 PM [place] [facility] Jan 10, 2024 02:30 PM [place]ORY - [place] [facility] Jan 11, 2024 01:20 PM [place] [facility] Jan 19, 2024 08:00 AM [place]ORY [place] [facility] Jan 25, 2024 10:00 AM AMBULATORY - REHAB MEDICIN [facility] Jan 31, 2024 12:00 PM [place] [facility] Feb 01, 2024 01:00 PM [facility] [facility] Feb 01, 2024 01:30 PM AMBULATORY - SURGERY [place] [facility] Lab Results: +/- 30 days of [...] Range Comment September 06, 2023 02:44 PM [facility] HEMOGLOBIN A1C Specimen Type: BLOOD Comment: Values [...] 02:05 PM Reporting Lab: [facility] [id number] Performing Lab: [facility] [id number] HEMOGLOBIN A1C 5.6 4.0-6.0 September 06, 2023 02:44 PM [facility] TSH W/REFLEX TO FREE T4 Specimen Type: [...] 02:05 PM Reporting Lab: [facility] [id number] Performing Lab: [facility] [id number] TSH 0.97 u[IU]/mL 0.35-4.94 September 06, 2023 02:44 PM [facility] CBC Specimen Type: BLOOD No comment entered. Ordering Provider: VERONICA DOZIER Report Released Date/Time: September 06, 2023 02:05 PM Reporting Lab: [facility] [id number] Performing Lab: [facility] [id number] WBC 6.22 10*3/uL 4.0-11.0 RBC 4.19 10*6/uL L 4.6-6.2 HGB 13.3 g/dL L 13.5-17.9 HCT 39.0 L 41-54 MCV 93.1 fL 80-100 MCH 31.7 pg 27-33 MCHC 34.1 g/dL 32.0-37.5 PLT 207 10*3/uL 150-400 MPV 9.2 fL 7.4-10.4 RDW 13.5 11.5-14.5 September 06, 2023 02:44 PM [facility] COMPREHENSIVE METABOLIC PANEL+MG Specimen Type: PLASMA Comment: [...] 02:05 PM Reporting Lab: [facility] [id number] Performing Lab: [facility] [id number] CREATININE 1.0 mg/dL 0.7-1.2 UREA NITROGEN 22 [...] 78 138/81 18 95 0 270.2 42 [facility] Social History: Smoking Status (Most [...] TOBACCO USE IN LAST 30 D AYS [facility] Jun 23, 2015 10:20 AM [...] Jul 15, 2016 ADVANCE DIRECTIVE ARIEL TREVINO [facility] Jul 15, 2016 ADVANCE DIRECTIVE DISCUSSION MAUREEN TREVINO [facility] Mar 22, 2016 CLINICAL WARNING PRUDENCIO TYLER [facility] Feb 05, 2011 CLINICAL WARNING [facility] Dec 17, 2010 CLINICAL WARNING QUE CAMERON [facility] Aug 26, 2003 ADVANCE DIRECTIVE ELGIN HOOPER [facility] Encounter Notes: All associated encounter notes This section contains the clinical notes associated to the Encounter. Date/Time Encounter Note(s) Provider Source Dec 20, 2023 01:32 PM LETTERS: LOCAL TITLE: FOLLOW UP RESULTS LETTER STANDARD TITLE: LETTERS DATE OF NOTE: DEC 20, 2023@13:32 ENTRY DATE: DEC 20, 2023@13:32:49 AUTHOR: SHERRON BRISCOE EXP COSIGNER: URGENCY: STATUS: COMPLETED [facility] [address] [place] [address] Nov NANDA PANDYA [address] [facility] [id number] Dear DemetraTimmy: I am writing to inform you of the results of the tests you had done at the [facility]. The financial engineer showed some extrabeats from top and some extra beats from bottom(PVCs) during your symptoms. The PVCs overal average burden was 5.5% but highest 8.9%. You had short runs of fast heart beats arising from top chambers during which you had some symptoms. We can discuss about treatment options in the next clinic visit. Sincerely, MARISELA BRISCOE MD STAFF PHYSICIAN - CARDIAC MEDICAL RECORDS LIBRARY PROFESSOR [facility] Dec 20, 2023 12:59 PM CARDIOLOGY DIAGNOSTIC STUDY CONSULT: LOCAL TITLE: EKG CONSULT STANDARD TITLE: CARDIOLOGY DIAGNOSTIC STUDY CONSULT DATE OF NOTE: DEC 20, 2023@12:59 ENTRY DATE: DEC 20, 2023@13:00:13 AUTHOR: SHERRON BRISCOE COSIGNER: URGENCY: STATUS: COMPLETED Zio patch event monitor Duration: 6 days, 21 hours Indication: Dizziness and giddiness Findings: Minimum heart rate 48 bpm, average 68 bpm and maximum 109 bpm Patient was in normal sinus rhythm without any evidence of atrial fibrillation. Patient has underlying bundle branch block with a QRS widening. There was no evidence of pauses detected. The average PVC burden was 5.5%, with a maximum burden of 8.9% on September 07 and September 09, 2023. There was predominant 1 PVC morphology. Patient had 35 episodes of what it appears to be atrial tachycardia. There were nonsustained in nature. Patient felt overheated at 2 AM in the morning which showed no significant arrhythmias except some likely atrial ectopy.. There were triggered episodes on September 06 at 2:09 AM associated with short run of atrial tachycardia. Many episodes reported with sinus with the atrial ectopy symptoms. He had shortness of breath when the short runs of supraventricular tachycardia. Patient also complained of lightheadedness during which his sinus rate was 100 bpm with ventricular bigeminy, supraventricular ectopy and ventricular ectopy. Overall there was no significant arrhythmias which could explain his symptoms. /es/ MARISELA BRISCOE MD STAFF PHYSICIAN - CARDIAC MEDICAL RECORDS LIBRARY PROFESSOR Signed: 12/20/2023 13:06 [facility]
--- OUTSIDE RECORDS SUMMARY | 2024-01-24 02:28 | XMS_ITS | Encounter Summary ---
Author Name Department of Vetera Affairs [place]) Organization Department of Veter[place] Address [address] [place] [address] Care Team Providers Care Finance Accounting Internship Name Role Phone NONA PAULINO [facility] Insurance Providers: All historical and [...] Mandel's Name Patient's Relationship to Policy Mandel [facility] (WNR) MEDICARE ADVANTAGE [facility] (WNR) May 02, 2016 [id number] [phone] Duarte PANDYA PATIENT [facility] (WNR) MEDICARE ADVANTAGE [facility] (WNR) May 02, 2016 [id number] [phone] Duarte PANDYA PATIENT Selected Encounter This section includes the information on record at [place] for the Encounter. Date/Time Encounter Type Encounter Description Reason Provider Source Nov 02, 2023 01:30 PM OFFICE O/P EST LOW 20 MIN PODIATRY ICD-10-CM 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 REGINALDO,LUCINA M [facility] Encounter Template Text not used by [place] Assessments - Encounter Diagnoses This section includes the primary and secondary diagnoses documented for the Encounter. Date/Time Primary/Secondary Diagnosis Diagnosis Name Provider Source Nov 02, 2023 04:01 PM PRIMARY Other idiopathic peripheral autonomic neuropathy LUCINA HAIR [facility] Nov 02, 2023 04:01 PM SECONDARY Corns and callosities LUCINA HAIR [facility] Nov 02, 2023 04:01 PM SECONDARY Other hammer toe(s) (acquired), unspecified foot LUCINA HAIR [facility] Nov 02, 2023 04:01 PM SECONDARY Peripheral vascular disease, [facility] Plan of Treatment: Future Appointments (+ 6 months) and Future Tests (+/- 45 days) The Plan of Treatment section includes future care activities for the patient from all [place] [facility]. This section includes future appointments and future orders which are active, pending or scheduled. Future Appointments This section includes appointments that were scheduled to occur 6 months from the date of the Encounter, up to a maximum of 20 appointments. The data comes from all [place] treatment facilities. Appointment Date/Time Appointment Type Appointme nt Facility Name Nov 08, 2023 05:30 PM AMBULATORY - REHAB MEDICIN [facility] Dec 13, 2023 11:30 AM AMBULATORY - MEDICINE [facility] Dec 26, 2023 11:00 AM AMBULATORY - REHAB MEDICIN [facility] Dec 28, 2023 01:30 PM AMBULATORY - SURGERY [facility] Jan 10, 2024 01:30 PM [facility]UL[facility]ORY [facility] SUR[facility] Jan 10, 2024 02:30 PM [facility] Jan 11, 2024 01:20 PM [facility]UL[facility] Jan 19, 2024 08:00 AM [facility] Jan 25, 2024 10:00 AM AMBULATORY - REHAB MEDICIN E [facility] Jan 31, 2024 12:00 PM [facility] Feb 01, 2024 01:00 PM [facility] Feb 01, 2024 01:30 PM [facility]UL[facility]ORY - SURG[facility] Lab Results: +/- 30 days of the encounter This section includes the Chemistry and Hematology Lab Results on record with DC for the patient. Radiology Reports and Pathology Reports are provided separately, in subsequent sections. Lab Results This section contains the Chemistry/Hematology Results that were resulted 30 days before or 30 daysafter the date of the Encounter. Date/Time Source Result Type Result - Unit Interpretation Reference Range Comment Oct 24, 2023 01:17 PM [facility] HEMOGLOBIN A1C Specimen Type: BLOOD Comment: [...] Jul 28, 2023 11:33 PM Reporting Lab: [facility] [id number] Performing Lab: [facility] [id number] HEMOGLOBIN A1C 5.5 4.0-6.0 Oct 24, 2023 01:17 PM [facility] B 12 Specimen Type: SERUM No comment entered. Ordering Provider: LES PAULINO Report Released Date/Time: Jul 28, 2023 11:33 PM Reporting Lab: [facility] [id number] Performing Lab: [facility] [id number] B 12 316 pg/mL 213-816 Oct 24, 2023 01:17 PM [facility] FOLATE Specimen Type: SERUM No comment entered. Ordering Provider: LES PAULINO Report Released Date/Time: Jul 28, 2023 11:33 PM Reporting Lab: [facility] [id number] Performing Lab: [facility] [id number] FOLATE 8.1 ng/mL >7.0 Oct 24, 2023 01:17 PM [facility] BASIC METABOLIC PANEL+MG Specimen Type: PLASMA No comment entered. Ordering Provider: LES PAULINO Report Released Date/Time: Jul 28, 2023 11:33 PM Reporting Lab: [facility] [id number] Performing Lab: [facility] [id number] CREATININE 1.0 mg/dL 0.7-1.2 UREA NITROGEN 23 mg/dL 8-26 GLUCOSE 86 mg/dL 70-100 SODIUM 141 mmol/L 136-145 POTASSIUM 4.7 mmol/L 3.5-5.1 CHLORIDE 108 mmol/L H 98-107 CO2 25 mmol/L 22-29 CALCIUM 9.6 mg/dL 8.4-10.2 MAGNESIUM 2.0 mg/dL 1.6-2.6 ANION GAP 8 mmol/L 5-15 .CREAT EGFR(CKD-EPI) 73 >60 Oct 24, 2023 01:17 PM [facility] IRON GROUP Specimen Type: SERUM No comment entered. Ordering Provider: LES PAULINO Report Released Date/Time: Jul 28, 2023 11:33 PM Reporting Lab: [facility] [id number] Performing Lab: [facility] [id number] IRON 83 ug/dL 65-175 TIBC,CALCULAT ED 285 ug/dL 250-425 FERRITIN 150.3 ng/mL 21.8-274.7 IRON SATURATION 29 20-50 TRANSFERRIN 228 mg/dL 163-382 Oct 24, 2023 01:17 PM [facility] LIPID PANEL,NON-FASTING Specimen Type: PLASMA No comment entered. Ordering Provider: LES PAULINO Report Released Date/Time: Jul 28, 2023 11:33 PM Reporting Lab: [facility] [id number] Performing Lab: [facility] [address] CHOLESTEROL 150 mg/dL <199 .HDL 54 mg/dL >40 LDL CALCULATION 84 mg/dL <99 VLDL CALCULATION 12 mg/dL <29 NON HDL CHOLESTEROL 96 mg/dL <129 TRIG(NON FASTING) 60 mg/dL <149 Oct 24, 2023 01:17 PM [facility] CBC Specimen Type: BLOOD No comment entered. Ordering Provider: LES PAULINO Report Released Date/Time: Jul 28, 2023 11:33 PM Reporting Lab: [facility] [id number] Performing Lab: [facility] [id number] WBC 7.64 10*3/uL 4.0-11.0 RBC 4.19 10*6/uL [...] and tobacco- related health factors from the [place] facility where the Encounter took place. Current Smoking Status This section includes the most current smoking, or tobacco-related health factor, from the [place] facility where the Encounter took place. Date/Time Current Smoking Status Comment Facil ity Oct 24, 2023 02:30 PM VA-TOBACCO FORMER USER [facility] Tobacco Use History This section includes a history of the smoking, or tobacco-related health factors, that were collected on or before the date of the Encounter. The data comes from the [place] facility where the Encounter took place. Date/Time Smoking Status/Tobacco Use Comment F acility Oct 24, 2023 02:30 PM VA-TOBACCO QUIT 15 YRS OR MORE [facility] Jan 17, 2023 01:00 PM VA-TOBACCO FORMER USER [facility] Jan 17, 2023 01:00 PM VA-TOBACCO QUIT 15 YRS OR MORE [facility] Feb 01, 2022 01:00 PM VA-TOBACCO FORMER USER [facility] Feb 01, 2022 01:00 PM VA-TOBACCO QUIT 15 YRS OR MORE [facility] Feb 02, 2021 01:00 PM VA-TOBACCO FORMER USER [facility] Feb 02, 2021 01:00 PM VA-TOBACCO QUIT 15 YRS OR MORE [facility] Dec 12, 2019 01:25 PM VA-TOBACCO FORMER USER [facility] Dec 12, 2019 01:25 PM VA-TOBACCO QUIT 15 YRS OR MORE [facility] Jun 21, 2018 11:16 AM VA-TOBACCO FORMER USER [facility] Jun 21, 2018 11:16 AM VA-TOBACCO QUIT 15 YRS OR MORE [facility] September 15, 2017 05:29 AM INPT NO TOBACCO USE IN LAST 30 D AYS [facility] Jun 29, 2017 02:21 PM FORMER TOBACCO USER 7Y OR GREATE R [facility] September 16, 2016 05:29 AM INPT NO TOBACCO USE IN LAST 30 D [facility] May 06, 2016 10:21 AM FORMER TOBACCO USER 7Y OR GREATE R [facility] Mar 24, 2016 11:54 AM INPT NO TOBACCO USE IN LAST 30 D [facility] Jun 23, 2015 10:20 AM FORMER TOBACCO USER 7Y OR GREATE R [facility] Jul 04, 2014 02:41 PM FORMER TOBACCO USER 7Y OR GREATE R [facility] Dec 23, 2010 02:12 PM LIFETIME NON-TOBACCO USER [facility] Dec 18, 2010 05:07 PM FORMER TOBACCO USER 7Y OR GREATE R [facility] May 26, 2006 02:20 PM FORMER TOBACCO USER 7Y OR GREATE R [facility] Advance Directives: All historical and current Section Date Range: From patient's date of to the date document was created. This section includes ALL of a patient's completed or amended DC Advance and Rescinded Directives. The entries below indicate that a directive exists for the patient, but an actual copy is not included with this document. The data comes from all [place] facilities. Date Advance Directives Provider Source Jul 15, 2016 ADVANCE DIRECTIVE ARIEL TREVINO [facility] Jul 15, 2016 ADVANCE DIRECTIVE DISCUSSION MAUREEN TREVINO [facility] Mar 22, 2016 CLINICAL WARNING PRUDENCIO TYLER [facility] Feb 05, 2011 CLINICAL WARNING LI[facility]ETH [facility] Dec 17, 2010 CLINICAL WARNING QUE CAMERON [facility] Aug 26, 2003 ADVANCE DIRECTIVE ELGIN HOOPER [facility] Encounter Notes: All associated encounter notes This section contains the clinical notes associated to the Encounter. Date/Time Encounter Note(s) Provider Source Nov 02, 2023 02:05 PM PODIATRY ATTENDING NOTE: LOCAL TITLE: PODIATRY CLINIC NOTE STANDARD TITLE: PODIATRY ATTENDING NOTE DATE OF NOTE: NOV 02, 2023@14:05 ENTRY DATE: NOV 02, 2023@14:05:36 AUTHOR: LUCINA HAIR EXP COSIGNER: URGENCY: STATUS: COMPLETED ASSESSMENT: 1. Idiopathic peripheral neuropathy 2. Peripheral vascular disease 3. History of neuropathic ulcer 4. History of venous stasis ulcers 5. Hyperkeratosis 6. Juan PLAN: Foot exam complete today. Nails 1 through 10 were debrided in length, thickness along with callus to the right fifth digit debrided. Discussed that the combination of his forefoot atrophy along with him overpronation altering his foot strike this is resulting in his pain, callus formation. We discussed options to continue debriding, seeing if he could meet with prosthetics to see if they could better offload this area versus meeting with a and taxi instructor bus trolley. Discussed unlikely they would recommend surgery at the age of 88 in the setting of him not having any type of wound. Nevertheless patient would like to at least have that conversation given the frequency of debridement, pain. Recently got new shoes. Encouraged him to continue with daily foot exam, daily foot care along with use of indoor, outdoor footwear. Stressed importance of him continue with the compression devices as his legs do appear to be well today in comparison to previous. I spent 20 minutes on patient care, including reviewing chart and history. With over 50% of time spent on [id number] education relating to medical condition. DISCLAIMER: This dictation was completed using [employer]. Although I attest that I diligently review and edit my dictations, insensible words or phrases may still be present. Chief Complaint: Foot exam, foot care History of Present Illness: Killian is a pleasant 88-year-old male comes in clinic today for high risk foot exam, foot care along with pain at the right callus. Last seen 2 months ago. Comments that he bumped up his appointment given the severity of pain that he is dealing with at the callus site. Denies it being open no drainage, no fevers, no chills. Questions further options. Comments that his swelling in his legs has been much better controlled with new compression stockings Pertinent Medical History: Peripheral neuropathy, peripheral vascular disease, history of neuropathic wound, venous stasis ulcers, Allergies: BRAZIL NUTS (Jun 12, 2006) ANIMALS (Dec 17, 2010) Current Medications: Active Outpatient Medications (including Supplies): ACETAMINOPHEN 325MG TAB TAKE TWO TABLETS BY MOUTH THREE ACTIVE TIMES A DAY FOR PAIN -NOT TO EXCEED 4000MG IN 24 HOURS FROM ALL SOURCES AMLODIPINE BESYLATE 5MG TAB TAKE ONE TABLET BY MOUTH DAILY ACTIVE CARBOXYMETHYLCELLULOSE NA 0.25% OPH SOLN INSTILL 1 DROP IN ACTIVE BOTH EYES FOUR TIMES A DAY FOR DRY EYES DOXAZOSIN MESYLATE 2MG TAB TAKE ONE TABLET BY MOUTH AT ACTIVE BEDTIME FOR BPH (BENIGN PROSTATIC HYPERPLASIA) FAMOTIDINE 20MG TAB TAKE ONE TABLET BY MOUTH TWICE A DAY ACTIVE (S) TO DECREASE STOMACH ACID FINASTERIDE 5MG TAB TAKE ONE TABLET BY MOUTH EVERY DAY FOR ACTIVE PROSTATE GLOVE VINYL LARGE PWDR-FREE NONSTERILE USE GLOVE(S) ACTIVE DIRECTED LOSARTAN 50MG TAB TAKE ONE TABLET BY MOUTH EVERY DAY FOR ACTIVE (S) BLOOD PRESSURE NYSTATIN 914132 UNT/GM CREAM APPLY THIN LAYER TOPICALLY ACTIVE TWICE A DAY FOR RASH EXTERNAL USE ONLY POLYETHYLENE GLYCOL 3350 ORAL PWDR TAKE 17 GRAMS BY MOUTH ACTIVE EVERY DAY FOR CONSTIPATION - MIX IN 4 TO 8 OUNCES OF LIQUID DIRECTED*USE COVER TO MEASURE POWDER* VANICREAM TOP CREAM APPLY THIN LAYER TOPICALLY [...] TWICE A DAY NEEDED REVIEW OF SYSTEMS: Vascular: Pedal pulses palpable 1/4 at the DP and PT locations bilateral. Bronzing, tanning noted. Venous stasis ulcer to the right shinno drainage, concerns for infection.Capillary refill time is less than 5 seconds. +2 nonpitting lower extremity edema. No erythema, or varicosities noted. Hair growth negative. Neurologic: Decreased/absent sensation to the bilateral forefoot. Midfoot, hindfoot intact Dermatologic: Skin is dry flaky but intact Temperature is warm to cool from proximal to distal. Toenails are brittle, thickened, yellow. There are no signs of infection. No exposed bone. No plantar wound or puncture site, no fluctuance or fluid collection noted. Hypekeratosis to right plantar/lateral fifth MTPJ. Debrided underlying preulcerative no concern for infection Musculoskeletal: Forefoot fat pad atrophy right greater than left. Decreased medial longitudinal arch height. Mild hammertoe contractures to lesser digits. . Physical Exam: Pain Score: 0 (10/24/2023 14:33) Temperature: 97.9 F [36.6 C] (10/24/2023 14:33) Pulse: 76 (10/24/2023 14:33) Blood Pressure: 128/68 (10/24/2023 14:33) Weight: 268.7 lb [121.88 kg] (10/24/2023 14:33) Height: 67 in [170.2 cm] (05/17/2023 14:11) BMI: 42.2 General: Feet: Visual/Skin: Sensory: Pedal Pulse: Light touch: Monofilament: Review of Xrays: Latest Labs: HGB 12.9 L (10/24/23) MCV 94.3 (10/24/23) WBC 7.64 (10/24/23) PLT 213 (10/24/23) GLUCOSE 86 (10/24/23) RHEUMATOID FACTOR____ C-REACTIVE PROTEIN____ ALBUMIN 3.6 (09/06/23) No data available URIC ACID____ CALCIUM 9.6 (10/24/23) MAGNESIUM 2.0 (10/24/23) PO4____ CREATININE 1.0 (10/24/23) UREA NITROGEN 23 (10/24/23) No data available for: VIT D 25-OH,TOTAL TSH 0.97 (09/06/23) No data available LAB TESTS SELECTED Collection DT Specimen Test Name Result Units Ref Range 10/24/2023 13:17 BLOOD !! HEMOGLOBIN A1C 5.5 % 4.0 - 6.0 !! Indicates COMMENTS AVAILABLE...Refer to Interim Lab Report. Lipids: CHOLESTEROL 150 (10/24/23) HDL 54 (10/24/23) LDL CALCULATION 84 (10/24/23) LDL Measured: /es/ LUCINA HAIR NP NURSE PRACTITIONER Signed: 11/02/2023 16:01 LUCINA HAIR [facility]
--- OUTSIDE RECORDS SUMMARY | 2024-01-24 02:28 | XMS_ITS | Encounter Summary ---
Author Name [facility] [place] Organization [facility] [place] Address [address] [place] [id number] Care Team Providers Care Coding Compliance Manager Name Role Phone NONA PAULINO Primary Care Provider [facility] Insurance Providers: All historical and [...] Policy Mandel [facility] (WNR) MEDICARE ADVANTAGE [facility] (R) May 02, 2016 [id number] [phone] Duarte PANDYA PATIENT [facility] (WNR) MEDICARE [facility] (WNR) May 02, 2016 [id number] [phone] Duarte PANDYA PATIENT Selected Encounter This section includes the information on record at [place] for the Encounter. Date/Time Encounter Type Encounter Description Reason Provider Source Dec 26, 2023 11:00 AM HC PRO PHONE CALL 21-30 MIN TELEPHONE/REHAB AND SUPPORT ICD-10-CM R60.9 Edema, unspecified JALEN ROTHA A IHE Encounter Template Text not used by [place] Assessments - Encounter Diagnoses This section includes the primary and secondary diagnoses documented for the Encounter. Date/Time Primary/Secondary Diagnosis Diagnosis Name Provider Source Dec 26, 2023 11:00 AM PRIMARY Edema, unspecified GONZALEZ,PRESTON A [facility] Plan of Treatment: Future Appointments (+ 6 months) and Future Tests (+/- 45 days) The Plan of Treatment section includes future care activities for the patient from all [place] [facility]. This section includes future appointments and future orders which are active, pending or scheduled. Future Appointments This section includes appointments that were scheduled to occur 6 months from the date of the Encounter, up to a maximum of 20 appointments. The data comes from all [place] treatment facilities. Appointment Date/Time Appointment Type Appointme nt Facility Name Dec 28, 2023 01:30 PM AMBULATORY - SURGERY [facility] Jan 10, 2024 01:30 PM AMBULATORY - SURGERY [facility] Jan 10, 2024 02:30 PM AMBULATORY - NONE [facility] Jan 11, 2024 01:20 PM AMBULATORY - SURGERY [facility] Jan 19, 2024 08:00 AM AMBULATORY - NONE [facility] Jan 25, 2024 10:00 AM AMBULATORY - REHAB MEDICIN [facility] Jan 31, 2024 12:00 PM AMBULATORY - MEDICINE [facility] Feb 01, 2024 01:00 PM AMBULATORY - NONE [facility] Feb 01, 2024 01:30 PM AMBULATORY - SURGERY [facility] Social History: Smoking Status (Most current) and Tobacco Use (All prior to encounter date) This section includes the most current, and the historical, smoking and tobacco- related health factors from the [place] facility where the Encounter took place. Current Smoking Status This section includes the most current smoking, or tobacco-related health factor, from the [place] facility where the Encounter took place. Date/Time Current Smoking Status Comment Facil ity Oct 24, 2023 02:30 PM VA-TOBACCO FORMER USER [facility] Tobacco Use History This section includes a history of the smoking, or tobacco-related health factors, that were collected on or before the date of the Encounter. The data comes from the [place] facility where the Encounter took place. Date/Time Smoking Status/Tobacco Use Comment F acility Oct 24, 2023 02:30 PM VA-TOBACCO QUIT 15 YRS OR MORE [facility] Jan 17, 2023 01:00 PM VA-TOBACCO FORMER USER [facility] Jan 17, 2023 01:00 PM VA-TOBACCO QUIT 15 YRS OR MORE [facility] Feb 01, 2022 01:00 PM VA-TOBACCO FORMER USER [facility] Feb 01, 2022 01:00 PM VA-TOBACCO QUIT 15 YRS OR MORE [facility] Feb 02, 2021 01:00 PM VA-TOBACCO FORMER USER [facility] Feb 02, 2021 01:00 PM VA-TOBACCO QUIT 15 YRS OR MORE [facility] Dec 12, 2019 01:25 PM VA-TOBACCO FORMER USER [facility] Dec 12, 2019 01:25 PM VA-TOBACCO QUIT 15 YRS OR MORE [facility] Jun 21, 2018 11:16 AM VA-TOBACCO FORMER USER [facility] Jun 21, 2018 11:16 AM VA-TOBACCO QUIT 15 YRS OR MORE [facility] September 15, 2017 05:29 AM INPT NO TOBACCO USE IN LAST [address] [facility] Jun 29, 2017 02:21 PM FORMER TOBACCO USER 7Y OR GREATE R [facility] September 16, 2016 05:29 AM INPT NO TOBACCO USE IN LAST [address] [facility] May 06, 2016 10:21 AM FORMER TOBACCO USER 7Y OR GREATE R [facility] Mar 24, 2016 11:54 AM INPT NO TOBACCO USE IN LAST [address] [facility] Jun 23, 2015 10:20 AM FORMER TOBACCO USER 7Y OR GREATE R [facility] Jul 04, 2014 02:41 PM FORMER TOBACCO USER 7Y OR GREATE R [facility] Dec 23, 2010 02:12 PM LIFETIME NON-TOBACCO USER [facility] Dec 18, 2010 05:07 PM FORMER TOBACCO USER 7Y OR GREATE R [facility] May 26, 2006 02:20 PM FORMER TOBACCO USER 7Y OR GREATE R [facility] Advance Directives: All historical and current Section Date Range: From patient's date of to the date document was created. This section includes ALL of a patient's completed or amended [place] Advance and Rescinded Directives. The entries below indicate that a directive exists for the patient, but an actual copy is not included with this document. The data comes from all [place] facilities. Date Advance Directives Provider Source Jul 15, 2016 ADVANCE DIRECTIVE ARIEL TREVINO Brook [facility] Jul 15, 2016 ADVANCE DIRECTIVE DISCUSSION MAUREEN TREVINO Brook [facility] Mar 22, 2016 CLINICAL WARNING PRUDENCIO TYLER [facility] Feb 05, 2011 CLINICAL WARNING LIZETH GABRIEL [facility] Dec 17, 2010 CLINICAL WARNING QUE CAMERON [facility] Aug 26, 2003 ADVANCE DIRECTIVE ELGIN [facility] Radiology Reports: +/- 30 days of the [...] the Encounter. The data comes from all [place] treatment facilities. 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 TECHNIQUE: 3 view(s) of the right foot, submitted to the [place] National Teleradiology Program (NTP) for interpretation. FINDINGS: [...] of osteomyelitis. READING PHYSICIAN: Wili Solorzano MD -[id number] 01/12/2024 12:16 CDT [facility] National Teleradiology Program [phone] (For Medical Practitioner Use Only) Attention Patients / Veterans: If you have questions or concerns about these test results, please contact your ordering provider or primary care team. Primary Interpreting Staff: RADIOLOGY,OUTSIDE SERVICE, Staff Physician / RADIOLOGY,OUTSIDE SERVICE [facility] Pathology Reports: +/- 30 days of the [...] the Encounter. The data comes from all [place] treatment facilities. Date/Time Pathology Report Provider Source Jan 10, 2024 03:00 PM LR MICROBIOLOGY RE PORT: Reporting Lab: [facility] [CLIA# [id number]] [place] [address] Accession [UID]: [id number] [[id number]] Received: Jan 10, 2024@15:09 Collection sample: TISSUE Collection date: Jan 10, 2024 15:00 Provider: PAMELA SANDHU Comment on specimen: 5th MPJ RIGHT, RECEIVED IN ANAEROBIC TRANSPORT VIAL Test(s) ordered: ANAEROBIC CULTURE............. completed: Jan 18, 2024 * BACTERIOLOGY FINAL REPORT => Jan 18, 2024 13:34 TECH CODE: [id number] CULTURE RESULTS: CUTIBACTERIUM ACNES - Quantity: 2+ Comment: No susceptibility testing performed. Bacteriology Remark(s): THIS REPORT IS FINAL =--=--=--=--=--=--=--=--=--=--=--=- -=--=--=--=--=--=--=--=--=--=--=--= --=--=-- Performing Laboratory: Bacteriology Report Performed By: [facility] [CLIA# [id number]] [place] [address] [facility] Jan 10, 2024 03:00 PM LR MICROBIOLOGY RE PORT: Reporting Lab: [facility] [CLIA# [id number]] [place] [address] Accession [UID]: [id number] [[id number]] Received: Jan 10, 2024@15:09 Collection sample: TISSUE Collection date: Jan 10, 2024 15:00 Provider: PAMELA SANDHU Comment on specimen: 5th MPJ RIGHT, RECEIVED IN ANAEROBIC TRANSPORT VIAL Test(s) ordered: GRAM STAIN.................... completed: Jan 10, 2024 15:51 CULTURE & SUSCEPTIBILITY...... completed: Jan 21, 2024 * BACTERIOLOGY FINAL REPORT => Jan 21, 2024 12:48 TECH CODE: [id number] GRAM STAIN: DIRECT SMEAR of specimen before culturing shows: 1+ PMNS 2+ EPITHELIAL CELLS NO ORGANISMS SEEN CULTURE PENDING CULTURE RESULTS: STAPHYLOCOCCUS WARNERI - Quantity: 1+ Comment: No susceptibility testing performed. Bacteriology Remark(s): THIS REPORT IS FINAL =--=--=--=--=--=--=--=--=--=--=--=- -=--=--=--=--=--=--=--=--=--=--=--= --=--=-- Performing Laboratory: Bacteriology Report Performed By: [facility] [CLIA# [id number]] [place] [address] [facility] Encounter Notes: All associated encounter notes This section contains the clinical notes associated to the Encounter. Date/Time Encounter Note(s) Provider Source Dec 26, 2023 11:00 AM OCCUPATIONAL THERA PY CONSULT: LOCAL TITLE: OCCUPATIONAL THERAPY CONSULT STANDARD TITLE: OCCUPATIONAL THERAPY CONSULT DATE OF NOTE: DEC 26, 2023@11:00 ENTRY DATE: DEC 26, 2023@11:04:53 AUTHOR: PRESTON ROTH COSIGNER: URGENCY: STATUS: COMPLETED OCCUPATIONAL THERAPY EQUIPMENT CONSULT Ordering provider: NONA PAULINO request: AE: sock aid Diagnosis: Edema, unspecified(ICD-10-CM R60.9) Encounter: -Phone assessment: 26 min Subjective: I'm interested in a couple of sock aids - vet requests a couple new sock aids with straps stapled to plastic as those one with ropes and rivets tend to break for him over time. Vet's current/broken (?) sock aid is 4 wide, round bottomed and has 2 separate ropes through rivets. Assessment/recommendations: Vet seen in phone clinic today to discuss adaptive equipment to increase safety and independence. Vet arrives to clinic alone requesting a new sock-aid, ideally with a round bottom and straps stapled as it better meets vet's needs. Per instructional writer's knowledge this kind of sock-aid was a stock item a while ago but no longer. Also discussed different between sock-aid and wire stocking gaston, which vet is also interested to try with compression stockings. Plan to reach out to prosthetics to inquire if old style sock aids are still available. Vet is interested to re-connect for a follow up to make sure provided device work for him. Identified the following barriers: -Weakness -Limited ROM -LE edema Vet will benefit from adaptive equipment to increase safety and functional independence and was provided education on features and benefits of equipment. Vet will benefit from the following adaptive equipment: Item: wire stocking gaston Vendor: stock Item: 2x sock aids with stapled on straps Vendor: stock OR Item: red sock-aid Vendor: stock Education: Vet indicates readiness to learn, verbalizes understanding, agreement and satisfaction with the treatment plan. Denies further questions. P: RTC to phone clinic for a follow-up SHORT TERM GOAL to be met by end of session: 1. [place] will engage in an OT evaluation to improve safety and independence with use of adaptive equipment - MET 2. will report modified indep with managing compression stockings - ONGOING /es/ PRESTON ROTH OTR/L OCCUPATIONAL THERAPIST Signed: 01/04/2024 05:46 PRESTON ROTH [facility]
--- OUTSIDE RECORDS SUMMARY | 2024-01-24 02:28 | XMS_ITS | Encounter Summary ---
Author Name [facility] [place] Organization [facility] [place] [place] Address [address] [place] [address] Care Team Providers Care Child Advocate Name Role Phone NONA PAULINO [facility] Insurance Providers: All historical and current Section [...] Name Patient's Relationship to Policy Mandel [facility] (WNR) MEDICARE ADVANTAGE [facility] (R) May 02, 2016 [id number] [phone] [facility] (WNR) MEDICARE ADVANTAGE [facility] (WNR) May 02, 2016 [id number] [phone] Duarte PANDYA PATIENT Selected Encounter This section includes the information on record at [place] for the Encounter. 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 Date/Time Primary/Secondary Diagnosis Diagnosis Name Provider Source Nov 28, 2023 10:08 AM PRIMARY Gomez's esophagus with dysplasia, unspecified LEONARD CRABTREE STACEY [facility] Plan of Treatment: Future Appointments (+ 6 months) and Future Tests (+/- 45 days) The Plan of Treatment section includes future care activities for the patient from all [place] [facility]. This section includes future appointments and future orders which are active, pending or scheduled. Future Appointments This section includes appointments that were scheduled to occur 6 months from the date of the Encounter, up to a maximum of 20 appointments. The data comes from all [place] treatment facilities. Appointment Date/Time Appointment Type Appointme nt Facility Name Dec 13, 2023 11:30 AM AMBULATORY - MEDICINE [facility] Dec 26, 2023 11:00 AM AMBULATORY - REHAB [facility] Dec 28, 2023 01:30 PM AMBULATORY - SURGERY [facility] Jan 10, 2024 01:30 PM AMBULATORY - SURGERY [facility] Jan 10, 2024 02:30 PM AMBULATORY - NONE [facility] Jan 11, 2024 01:20 PM AMBULATORY - SURGERY [facility] Jan 19, 2024 08:00 AM AMBULATORY - NONE [facility] Jan 25, 2024 10:00 AM AMBULATORY - REHAB [facility] Jan 31, 2024 12:00 PM AMBULATORY - MEDICINE [facility] Feb 01, 2024 01:00 PM AMBULATORY - NONE [facility] Feb 01, 2024 01:30 PM AMBULATORY - SURGERY [facility] Social History: Smoking Status (Most [...] yousif Oct 24, 2023 02:30 PM VA-TOBACCO FORMER USER [facility] Tobacco Use History This section includes a history of the smoking, or tobacco-related health factors, that were collected on or before the date of the Encounter. The data comes from the [place] facility where the Encounter took place. Date/Time Smoking Status/Tobacco Use Comment F acility Oct 24, 2023 02:30 PM VA-TOBACCO QUIT 15 YRS OR MORE [facility] Jan 17, 2023 01:00 PM VA-TOBACCO FORMER USER [facility] Jan 17, 2023 01:00 PM VA-TOBACCO QUIT 15 YRS OR MORE [facility] Feb 01, 2022 01:00 PM VA-TOBACCO FORMER USER [facility] Feb 01, 2022 01:00 PM VA-TOBACCO QUIT 15 YRS OR MORE [facility] Feb 02, 2021 01:00 PM VA-TOBACCO FORMER USER [facility] Feb 02, 2021 01:00 PM VA-TOBACCO QUIT 15 YRS OR MORE [facility] Dec 12, 2019 01:25 PM VA-TOBACCO FORMER USER [facility] Dec 12, 2019 01:25 PM VA-TOBACCO QUIT 15 YRS OR MORE [facility] Jun 21, 2018 11:16 AM VA-TOBACCO FORMER USER [facility] Jun 21, 2018 11:16 AM VA-TOBACCO QUIT 15 YRS OR MORE [facility] September 15, 2017 05:29 AM INPT NO TOBACCO USE IN LAST 30 D [facility] Jun 29, 2017 02:21 PM FORMER TOBACCO USER 7Y OR GREATE R [facility] September 16, 2016 05:29 AM INPT NO TOBACCO USE IN LAST 30 D [facility] May 06, 2016 10:21 AM FORMER TOBACCO USER 7Y OR GREATE R [facility] Mar 24, 2016 11:54 AM INPT NO TOBACCO USE IN LAST 30 D [facility] Jun 23, 2015 10:20 AM FORMER TOBACCO USER 7Y OR GREATE R [facility] Jul 04, 2014 02:41 PM FORMER TOBACCO USER 7Y OR GREATE R [facility] Dec 23, 2010 02:12 PM LIFETIME NON-TOBACCO USER [facility] Dec 18, 2010 05:07 PM FORMER TOBACCO USER 7Y OR GREATE R [facility] May 26, 2006 02:20 PM FORMER TOBACCO USER 7Y OR GREATE R [facility] Advance Directives: All historical and current [...] 2016 ADVANCE DIRECTIVE DISCUSSION MAUREEN TREVINO Brook [facility] Jul 15, 2016 ADVANCE DIRECTIVE BELINDAARIEL Brook [facility] Mar 22, 2016 CLINICAL WARNING PRUDENCIO TYLER [facility] Feb 05, 2011 CLINICAL WARNING LIZETH GABRIEL [facility] Dec 17, 2010 CLINICAL WARNING QUE CAMERON [facility] Aug 26, 2003 ADVANCE DIRECTIVE ELGIN HOOPER [facility] Encounter Notes: All associated encounter notes This section contains the clinical notes associated to the Encounter. Date/Time Encounter Note(s) Provider Source Nov 28, 2023 10:08 AM REPORT OF CONTACT: LOCAL TITLE: PATIENT CONTACT NOTE STANDARD TITLE: REPORT OF CONTACT DATE OF NOTE: NOV 28, 2023@10:08 ENTRY DATE: NOV 28, 2023@10:08:11 AUTHOR: GAURAV CRABTREE EXP COSIGNER: URGENCY: STATUS: COMPLETED PATIENT CONTACT NOTE Has ADDENDA [place] Called and reports he requested refill of his Lactobacillus but has had difficulty getting it refilled. He reports he has stopped this medication for the past two weeks and thinks he is doing better without the medication. While on the lactobacillus he noted abdominal pains that have resolved once stopping the medication. The is requesting his PCP discontinue this medication. /nichole CRABTREE RN Signed: 11/28/2023 10:09 Receipt Acknowledged By: 12/02/2023 12:46 /nichole PAULINO MD Staff Physician 12/02/2023 ADDENDUM STATUS: COMPLETED Medication discontinued. /nichole PAULINO MD Staff Physician Signed: 12/02/2023 12:46 GAURAV CRABTREE [facility]
--- OUTSIDE RECORDS SUMMARY | 2024-01-24 02:28 | XMS_ITS | Encounter Summary ---
Author Name [facility] [place] Organization [place] Address [address] [place] [address] Care Team Providers Care Medical Coding Specialist Name Role Phone NONA PAULINO [facility] Insurance Providers: All historical and [...] Mandel's Name Patient's Relationship to Policy Mandel [facility] (WNR) MEDICARE ADVANTAGE MCR ([facility]) May 02, 2016 [id number] [phone] Duarte PANDYA PATIENT [facility] (WNR) MEDICARE ADVANTAGE MCR (WNR) May 02, 2016 [id number] [phone] Duarte PANDYA PATIENT Selected Encounter This section includes the information on record at [place] for the Encounter. Date/Time Encounter Type Encounter Description Reason Provider Source Dec 13, 2023 11:30 AM HC PRO PHONE CALL 21-30 MIN TELEPHONE/MEDICINE ICD-10-CM G47.39 Other sleep apnea DAVIDVICKI R E Encounter Template Text not used by [place] Assessments - Encounter Diagnoses This section includes the primary and secondary diagnoses documented for the Encounter. Date/Time Primary/Secondary Diagnosis Diagnosis Name Provider Source Dec 13, 2023 11:30 AM PRIMARY Other sleep apnea DAVIDSHONDAVICKI R [facility] Plan of Treatment: Future Appointments (+ 6 months) and Future Tests (+/- 45 days) The Plan of Treatment section includes future care activities for the patient from all [place] [facility] This section includes future appointments and future orders which are active, pending or scheduled. Future Appointments This section includes appointments that were scheduled to occur 6 months from the date of the Encounter, up to a maximum of 20 appointments. The data comes from all [place] treatment facilities. Appointment Date/Time Appointment Type Appointme nt Facility Name Dec 26, 2023 11:00 [facility] Dec 28, 2023 01:30 PM [facility]BULATORY - SURGERY [facility] Jan 10, 2024 01:30 PM AMBULATORY - SURGERY [facility] Jan 10, 2024 02:30 PM AMBULATORY - NONE [facility] Jan 11, 2024 01:20 PM AMBULATORY - SURGERY [facility] Jan 19, 2024 08:00 AM AMBULATORY - NONE [facility] Jan 25, 2024 10:00 [facility] Jan 31, 2024 12:00 PM [facility] Feb 01, 2024 01:00 PM AMBULATORY - NONE [facility] Feb 01, 2024 01:30 PM AMBULATORY - SURGERY [facility] Social History: Smoking Status (Most current) and Tobacco Use (All prior to encounter date) This section includes the most current, and the historical, smoking and tobacco- related health factors from the [place] facility where the Encounter took place. Current Smoking Status This section includes the most current smoking, or tobacco-related health factor, from the [place] facility where the Encounter took place. Date/Time Current Smoking Status Comment Facil ity Oct 24, 2023 02:30 PM VA-TOBACCO FORMER USER [facility] Tobacco Use History This section includes a history of the smoking, or tobacco-related health factors, that were collected on or before the date of the Encounter. The data comes from the [place] facility where the Encounter took place. Date/Time [...] this document. The data comes from all [place] facilities. Date Advance Directives Provider Source Jul 15, 2016 ADVANCE DIRECTIVE ARIEL TREVINO [place] [facility] Jul 15, 2016 ADVANCE DIRECTIVE DISCUSSION DAVIDTWANMAUREEN [facility] Mar 22, 2016 CLINICAL WARNING PRUDENCIO TYLER [facility] Feb 05, 2011 CLINICAL WARNING LIZETH GABRIEL [facility] Dec 17, 2010 CLINICAL WARNING QUE CAMERON [facility] Aug 26, 2003 ADVANCE DIRECTIVE ELGIN HOOPER [facility] Radiology Reports: +/- 30 days of [...] the Encounter. The data comes from all [place] treatment facilities. 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 TECHNIQUE: 3 view(s) of the right foot, submitted to the [place] National Teleradiology Program (NTP) for interpretation. FINDINGS: [...] of osteomyelitis. READING PHYSICIAN: Wili Solorzano MD -[id number] 01/12/2024 12:16 CDT [facility] National Teleradiology Program [phone] (For Medical Practitioner Use Only) Attention Patients / Veterans: If you have questions or concerns about these test results, please contact your ordering provider or primary care team. Primary Interpreting Staff: RADIOLOGY,OUTSIDE SERVICE, Staff Physician / RADIOLOGY,OUTSIDE SERVICE [facility] Pathology Reports: +/- 30 days of the [...] the Encounter. The data comes from all [place] treatment facilities. Date/Time Pathology Report Provider Source Jan 10, 2024 03:00 PM LR MICROBIOLOGY RE PORT: Reporting Lab: [facility] [CLIA# [id number]] [place] [address] Accession [UID]: [id number] [[id number]] Received: Jan 10, 2024@15:09 Collection sample: TISSUE Collection date: Jan 10, 2024 15:00 Provider: PAMELA SANDHU Comment on specimen: 5th MPJ RIGHT, RECEIVED IN ANAEROBIC TRANSPORT VIAL Test(s) ordered: ANAEROBIC CULTURE............. completed: Jan 18, 2024 * BACTERIOLOGY FINAL REPORT => Jan 18, 2024 13:34 TECH CODE: [id number] CULTURE RESULTS: CUTIBACTERIUM ACNES - Quantity: 2+ Comment: No susceptibility testing performed. Bacteriology Remark(s): THIS REPORT IS FINAL =--=--=--=--=--=--=--=--=--=--=--=- -=--=--=--=--=--=--=--=--=--=--=--= --=--=-- Performing Laboratory: Bacteriology Report Performed By: [facility] [CLIA# [id number]] [place] [address] [facility] Jan 10, 2024 03:00 PM LR MICROBIOLOGY RE PORT: Reporting Lab: [facility] [CLIA# [id number]] [place] [address] Accession [UID]: [id number] [[id number]] Received: Jan 10, 2024@15:09 Collection sample: TISSUE Collection date: Jan 10, 2024 15:00 Provider: PAMELA SANDHU Comment on specimen: 5th MPJ RIGHT, RECEIVED IN ANAEROBIC TRANSPORT VIAL Test(s) ordered: GRAM STAIN.................... completed: Jan 10, 2024 15:51 CULTURE & SUSCEPTIBILITY...... completed: Jan 21, 2024 * BACTERIOLOGY FINAL REPORT => Jan 21, 2024 12:48 TECH CODE: [id number] GRAM STAIN: DIRECT SMEAR of specimen before culturing shows: 1+ PMNS 2+ EPITHELIAL CELLS NO ORGANISMS SEEN CULTURE PENDING CULTURE RESULTS: STAPHYLOCOCCUS WARNERI - Quantity: 1+ Comment: No susceptibility testing performed. Bacteriology Remark(s): THIS REPORT IS FINAL =--=--=--=--=--=--=--=--=--=--=--=- -=--=--=--=--=--=--=--=--=--=--=--= --=--=-- Performing Laboratory: Bacteriology Report Performed By: [facility] [CLIA# [id number]] [place] [address] [facility] Encounter Notes: All associated encounter notes This section contains the clinical notes associated to the Encounter. Date/Time Encounter Note(s) Provider Source Dec 13, 2023 12:00 PM SLEEP MEDICINE NOT E: LOCAL TITLE: SLEEP MEDICINE NOTE STANDARD TITLE: SLEEP MEDICINE NOTE DATE OF NOTE: DEC 13, 2023@12:00 ENTRY DATE: DEC 13, 2023@12:00:45 AUTHOR: VICKI HERNANDEZ EXP COSIGNER: URGENCY: STATUS: COMPLETED Patient seen in clinic today for diagnosis of: Replacement supplies Mask Tubing Filters Download Compliance Summary 11/12/2023 - 12/11/2023 (30 days) Days with Device Usage 30 days Days without Device Usage 0 days Percent Days with Device Usage 100.0% Cumulative Usage 8 days 6 hrs. 48 mins. 53 secs. Maximum Usage (1 Day) 8 hrs. 19 mins. 53 secs. Average Usage (All Days) 6 hrs. 37 mins. 37 secs. Average Usage (Days Used) 6 hrs. 37 mins. 37 secs. Minimum Usage (1 Day) 4 hrs. 50 mins. 23 secs. Percent of Days with Usage >= 4 Hours 100.0% Percent of Days with Usage < 4 Hours 0.0% Date Range Total Blower Time 8 days 6 hrs. 49 mins. 8 secs. CPAP Summary Average Time in Large Leak Per Day 0 secs. Average AHI 1.9 CPAP 13.0 cmH2O Other: [place] had questions on his humidifier. He was informed that it correlates with the humidity in the air and that is why it does not go down in the summer like it does in the winter. Patient instructed to call with problems/questions or if symptoms aren't improved. 12/13/[id number] [employer] PM PEND.SHIPMT N/A [id number]- 12/13/23 [id number] [employer] PM PEND.SHIPMT N/A [id number] 12/13/23 [id number] [employer] PM PEND.SHIPMT N/A DREAMSTATION-HEATED- 12/13/23 [id number] [employer] PM PEND.SHIPMT N/A [id number] 12/13/23 [id number] [employer] PM PEND.SHIPMT N/A [id number] /es/ VICKI HERNANDEZ ERP PM Signed: 12/13/2023 15:13 VICKI HERNANDEZ [facility]
--- OUTSIDE RECORDS SUMMARY | 2024-01-24 02:30 | XMS_ITS | Encounter Summary ---
Author Name [facility] [place] Organization [place] Address [address] [place] [address] Care Team Providers Care Picu Nurse Name Role Phone NONA PAULINO [facility] Insurance Providers: All [...] Mandel's Name Patient's Relationship to Policy Mandel [facility] (WNR) MEDICARE ADVANTAGE [facility] (WNR) May 02, 2016 [id number] [phone] Duarte PANDYA PATIENT [facility] (WNR) MEDICARE ADVANTAGE [facility] (WNR) May 02, 2016 [id number] [phone] Duarte PANDYA PATIENT Selected Encounter This section includes the information on record at [place] for the Encounter. Date/Time Encounter Type Encounter Description Reason Pro vider Source Jan 16, 2024 10:04 AM Outpatient Encounter COMMUNITY CARE CONSULT IHE Encounter Template Text not used by [place] Plan of Treatment: Future Appointments (+ 6 months) and Future Tests (+/- 45 days) The Plan of Treatment section includes future care activities for the patient from all [place] [facility]. This section includes future appointments and future orders which are active, pending or scheduled. Future Appointments This section includes appointments that were scheduled to occur 6 months from the date of the Encounter, up to a maximum of 20 appointments. The data comes from all [facility] facilities. Appointment Date/Time Appointment Type Appointme nt Facility Name Jan 19, 2024 08:00 AM AMBULATORY - NONE [facility] Jan 25, 2024 10:00 AM AMBULATORY - REHAB MEDICIN E [facility] Jan 31, 2024 12:00 PM [facility] - [facility]ICINE [facility] Feb 01, 2024 01:00 PM AMBULATORY - NONE [facility] Feb 01, 2024 01:30 PM AMBULATORY - SURGERY [facility] Social History: Smoking Status (Most [...] 24, 2023 02:30 PM VA-TOBACCO FORMER USER [facility] Tobacco [...] QUIT 15 YRS OR MORE [facility] Jan 17, 2023 01:00 PM VA-TOBACCO FORMER USER [facility] Jan 17, 2023 01:00 PM VA-TOBACCO QUIT [...] NO TOBACCO USE IN LAST 30 D [facility] Jun 29, 2017 02:21 PM FORMER TOBACCO USER 7Y OR GREATE R [facility] September 16, 2016 05:29 AM INPT NO TOBACCO USE IN LAST 30 D [facility] May 06, 2016 10:21 AM FORMER TOBACCO USER 7Y OR GREATE R [facility] Mar 24, 2016 11:54 AM INPT NO TOBACCO USE IN LAST 30 D [facility] Jun 23, 2015 10:20 AM FORMER [...] this document. The data comes from all [place] facilities. Date Advance Directives Provider Source Jul 15, 2016 ADVANCE DIRECTIVE ARIEL TREVINO [facility] Jul 15, 2016 ADVANCE DIRECTIVE DISCUSSION MAUREEN TREVINO [facility] Mar 22, 2016 CLINICAL WARNING PRUDENCIO TYLER [facility] Feb 05, 2011 [facility] Dec 17, 2010 CLINICAL WARNING QUE CAMERON [facility] Aug 26, 2003 ADVANCE DIRECTIVE [facility] Radiology Reports: +/- 30 days of [...] RIGHT 3 VIEWS OR MORE: NANDA PANDYA [id number] -[id number] M Exm Date: JAN 10, 2024@14:30 Req Phys: PAMELA SANDHU Pat Loc: [facility] POD SANDHU CONSULT (Req'g Img Loc: MAIN X-RAY Service: [place] [address] (Case [id number] COMPLETE) FOOT RIGHT 3 VIEWS OR MORE (RAD Detailed) CPT:93596 Proc Modifiers : RIGHT, WEIGHT BEARING 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 TECHNIQUE: 3 view(s) of the right foot, submitted to the [place] National Teleradiology Program (NTP) for interpretation. FINDINGS: [...] of osteomyelitis. READING PHYSICIAN: Wili Solorzano MD -[id number] 01/12/2024 12:16 CDT [facility] National Teleradiology Program [phone] (For Medical Practitioner Use Only) Attention Patients / Veterans: If you have questions or concerns about these test results, please contact your ordering provider or primary care team. Primary Interpreting Staff: RADIOLOGY,OUTSIDE SERVICE, Staff Physician / RADIOLOGY,OUTSIDE SERVICE [facility] Pathology Reports: +/- 30 days of the [...] the Encounter. The data comes from all [facility] facilities. Date/Time Pathology Report Provider Source Jan 10, 2024 03:00 PM LR MICROBIOLOGY RE PORT: Reporting Lab: [facility] [CLIA# [id number]] [place] [address] Accession [UID]: [id number] [[id number]] Received: Jan 10, 2024@15:09 Collection sample: TISSUE Collection date: Jan 10, 2024 15:00 Provider: PAMELA SANDHU Comment on specimen: 5th MPJ RIGHT, RECEIVED IN ANAEROBIC TRANSPORT VIAL Test(s) ordered: ANAEROBIC CULTURE............. completed: Jan 18, 2024 * BACTERIOLOGY FINAL REPORT => Jan 18, 2024 13:34 TECH CODE: [id number] CULTURE RESULTS: CUTIBACTERIUM ACNES - Quantity: 2+ Comment: No susceptibility testing performed. Bacteriology Remark(s): THIS REPORT IS FINAL =--=--=--=--=--=--=--=--=--=--=--=- -=--=--=--=--=--=--=--=--=--=--=--= --=--=-- Performing Laboratory: Bacteriology Report Performed By: [facility] [CLIA# [id number]] [place] [address] [facility] Jan 10, 2024 03:00 PM LR MICROBIOLOGY RE PORT: Reporting Lab: [facility] [CLIA# [id number]] [place] [address] Accession [UID]: [id number] [[id number]] Received: Jan 10, 2024@15:09 Collection sample: TISSUE Collection date: Jan 10, 2024 15:00 Provider: PAMELA SANDHU Comment on specimen: 5th MPJ RIGHT, RECEIVED IN ANAEROBIC TRANSPORT VIAL Test(s) ordered: GRAM STAIN.................... completed: Jan 10, 2024 15:51 CULTURE & SUSCEPTIBILITY...... completed: Jan 21, 2024 * BACTERIOLOGY FINAL REPORT => Jan 21, 2024 12:48 TECH CODE: [id number] GRAM STAIN: DIRECT SMEAR of specimen before culturing shows: 1+ PMNS 2+ EPITHELIAL CELLS NO ORGANISMS SEEN CULTURE PENDING CULTURE RESULTS: STAPHYLOCOCCUS WARNERI - Quantity: 1+ Comment: No susceptibility testing performed. Bacteriology Remark(s): THIS REPORT IS FINAL =--=--=--=--=--=--=--=--=--=--=--=- -=--=--=--=--=--=--=--=--=--=--=--= --=--=-- Performing Laboratory: Bacteriology Report Performed By: [facility] [CLIA# [id number]] [place] [address] [facility] Encounter Notes: All associated encounter notes This section contains the clinical notes associated to the Encounter. Date/Time Encounter Note(s) Provider Source Jan 16, 2024 03:03 PM ADDENDUM: LOCAL TITLE: Addendum STANDARD TITLE: ADDENDUM DATE OF NOTE: JAN 16, 2024@15:03:15 ENTRY DATE: JAN 16, 2024@15:03:17 AUTHOR: MARGARET PARKS EXP COSIGNER: URGENCY: STATUS: COMPLETED In absence of MYLES Amanda, alerting assigned coverage MYLES Lemus /vincenzo/ MARGARET PARKS RN COMMUNITY MILL CONTROL OPERATOR Signed: 01/16/2024 15:03 Receipt Acknowledged By: 01/16/2024 15:54 /vincenzo/ Ana DOMINGO RN Community Care Preschool Head Teacher ====== --- Original Document --- 01/16/24 COMMUNITY CARE-CARE COORDINATION PLAN NOTE: returning call to [place]. He is asking for a call back as soon as possible at the number on file. Demographics verified. /es/ HARESH ZUNIGA Signed: 01/16/2024 10:06 Receipt Acknowledged By: 01/16/2024 15:02 /es/ MARGARET PARKS, RECREATIONAL SPORTS DIRECTOR MILL CONTROL OPERATOR for MIS AMANDA 01/16/2024 ADDENDUM STATUS: COMPLETED [place] called the Community Care Line to follow up on previous call. told com writer he had called earlier today but nobody has return his call. Prn Physical Therapist tried to contact Mis Amanda on TEAMS but noticed her out of office notification. Prn Physical Therapist will assign this note to Carmen Sauer for advise on who's nurse could help this . He's stating it's been almost a week and he's wondering if treatment is even necessary at this point Please give a call back /vincenzo/ LARISSA ZUNIGA Signed: 01/16/2024 13:40 Receipt Acknowledged By: * AWAITING SIGNATURE * CARMEN BALLARD * AWAITING SIGNATURE * GAURAV CRABTREE * AWAITING SIGNATURE * NONA PAULINO KATHLEEN A [facility] Jan 16, 2024 01:35 PM ADDENDUM: LOCAL TITLE: Addendum STANDARD TITLE: ADDENDUM DATE OF NOTE: JAN 16, 2024@13:35:47 ENTRY DATE: JAN 16, 2024@13:35:49 AUTHOR: AMARJIT CANELA COSIGNER: URGENCY: STATUS: COMPLETED [place] called the Community Care Line to follow up on previous call. [place] told com writer he had called earlier today but nobody has return his call. Prn Physical Therapist tried to contact Mis Amanda on TEAMS but noticed her out of office notification. Prn Physical Therapist will assign this note to Carmen Sauer for advise on who's nurse could help this . He's stating it's been almost a week and he's wondering if treatment is even necessary at this point Please give a call back /vincenzo/ LARISSA ZUNIGA Signed: 01/16/2024 13:40 Receipt Acknowledged By: 01/17/2024 08:09 /es/ CARMEN BALLARD [facility] 01/17/2024 14:32 /es/ EMELY NADERSON, MYLES RN for GAURAV CRABTREE 01/17/2024 23:54 /es/ NONA PAULINO MD Staff Physician ====== --- Original Document --- 01/16/24 COMMUNITY CARE-CARE COORDINATION PLAN NOTE: [place] returning call to [place]. He is asking for a call back as soon as possible at the number on file. Demographics verified. /vincenzo/ HARESH ZUNIGA Signed: 01/16/2024 10:06 Receipt Acknowledged By: 01/16/2024 15:02 /es/ MARGARET PARKS RN COMMUNITY MILL CONTROL OPERATOR for MIS AMANDA 01/16/2024 ADDENDUM STATUS: COMPLETED In absence of MYLES Amanda, alerting assigned coverage MYLES Lemus /vincenzo/ MARGARET PARKS RN COMMUNITY MILL CONTROL OPERATOR Signed: 01/16/2024 15:03 Receipt Acknowledged By: 01/16/2024 15:54 /vincenzo/ Ana DOMINGO RN Community Care Preschool Head Teacher 01/17/2024 ADDENDUM STATUS: COMPLETED Community care is handling 's concerns. No further PACT concerns at this time. /es/ EMELY ANDERSON RN RN Signed: 01/17/2024 14:33 ELHAM CANELA [facility] Jan 16, 2024 10:04 AM NONVA NOTE: LOCAL TITLE: COMMUNITY CARE-CARE COORDINATION PLAN NOTE STANDARD TITLE: NONVA NOTE DATE OF NOTE: JAN 16, 2024@10:04 ENTRY DATE: JAN 16, 2024@10:04:36 AUTHOR: TAYLOR THOMAS COSIGNER: URGENCY: STATUS: COMPLETED COMMUNITY CARE-CARE COORDINATION PLAN NOTE Has ADDENDA [place] returning call to [place]. He is asking for a call back as soon as possible at the number on file. Demographics verified. /es/ HARESH ZUNIGA Signed: 01/16/2024 10:06 Receipt Acknowledged By: 01/16/2024 15:02 /es/ MARGARET PARKS RN COMMUNITY MILL CONTROL OPERATOR for MIS OLIVEIRAVALENTIN 01/16/2024 ADDENDUM STATUS: COMPLETED called the Community Care Line to follow up on previous call. told com writer he had called earlier today but nobody has return his call. Prn Physical Therapist tried to contact Mis Amanda on TEAMS but noticed her out of office notification. Prn Physical Therapist will assign this note to Carmen Sauer for advise on who's nurse could help this . He's stating it's been almost a week and he's wondering if treatment is even necessary at this point Please give a call back /vincenzo/ LARISSA ZUNIGA Signed: 01/16/2024 13:40 Receipt Acknowledged By: 01/17/2024 08:09 /vincenzo/ CARMEN BALLARD [facility] 01/17/2024 14:32 /es/ EMELY ANDERSON RN RN for GAURAV CRABTREE * AWAITING SIGNATURE * NONA PAULINO 01/16/2024 ADDENDUM STATUS: COMPLETED In absence of MYLES Amanda, alerting assigned coverage MYLES Lemus /vincenzo/ MARGARET PARKS RN COMMUNITY MILL CONTROL OPERATOR Signed: 01/16/2024 15:03 Receipt Acknowledged By: 01/16/2024 15:54 /es/ Ana DOMINGO,plug machine operator Care Preschool Head Teacher 01/17/2024 ADDENDUM STATUS: COMPLETED Community care is handling 's concerns. No further PACT concerns at this time. /es/ EMELY ANDERSON RN RN Signed: 01/17/2024 14:33 KELECHI THOMAS [facility]
--- OUTSIDE RECORDS SUMMARY | 2024-01-24 02:30 | XMS_ITS | Encounter Summary ---
Author Name [facility] [place] Organization [facility] [place] Address [address] [place] [id number] Care Team Providers Care Lift Builder Whole Name Role Phone NONA PAULINO Primary Care [...] Name Patient's Relationship to Policy Mandel [facility] (WNR) MEDICARE ADVANTAGE [facility] ([facility]) May 02, 2016 [id number] [phone] [facility] (WNR) MEDICARE ADVANTAGE [facility] (WNR) May 02, 2016 [id number] [phone] Duarte PANDYA PATIENT Selected Encounter This section includes the information on record at [place] for the Encounter. Date/Time Encounter Type Encounter Description Reason Provider Source Jan 11, 2024 01:20 PM OFFICE O/P EST MOD 30 MIN OPHTHALMOLOGY ICD-10-CM H04.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 DEBORA,SORAYA Clarita ZACHARY Encounter Template Text not used by [place] Assessments - Encounter Diagnoses This section includes the primary and secondary diagnoses documented for the Encounter. 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 This section includes future appointments and future orders which are active, pending or scheduled. Future Appointments This section includes appointments that were scheduled to occur 6 months from the date of the Encounter, up to a maximum of 20 appointments. The data comes from all [place] treatment facilities. Appointment Date/Time Appointment Type Appointme nt Facility Name Jan 19, 2024 08:00 AM AMBULATORY - NONE [facility] Jan 25, 2024 10:00 AM AMBULATORY - REHAB MEDICIN E [facility] Jan 31, 2024 12:00 PM [facility] Feb 01, 2024 01:00 PM AMBULATORY - NONE [facility] Feb 01, 2024 01:30 PM AMBULATORY - SURGERY [facility] Social History: Smoking Status (Most current) and Tobacco Use (All prior to encounter date) This section includes the most current, and the historical, smoking and tobacco- related health factors from the [place] facility where the Encounter took place. Current Smoking Status This section includes the most current smoking, or tobacco-related health factor, from the [place] facility where the Encounter took place. Date/Time Current Smoking Status Comment Nette yousif Oct 24, 2023 02:30 PM VA-TOBACCO FORMER USER [facility] Tobacco Use History This section includes a history of the smoking, or tobacco-related health factors, that were collected on or before the date of the Encounter. The data comes from the [place] facility where the Encounter took place. Date/Time Smoking Status/Tobacco Use Comment F ericility Oct 24, 2023 02:30 PM VA-TOBACCO QUIT 15 YRS OR MORE [facility] Jan 17, 2023 01:00 PM VA-TOBACCO FORMER USER [facility] Jan 17, 2023 01:00 PM VA-TOBACCO QUIT 15 YRS OR MORE [facility] Feb 01, 2022 01:00 PM VA-TOBACCO FORMER USER [facility] Feb 01, 2022 01:00 PM [...] NO TOBACCO USE IN LAST 30 D [facility] Jun 29, 2017 02:21 PM FORMER TOBACCO USER 7Y OR GREATE R [facility] September 16, 2016 05:29 AM INPT NO TOBACCO USE IN LAST 30 D [facility] May 06, 2016 10:21 AM FORMER TOBACCO USER 7Y OR GREATE R [facility] Mar 24, 2016 11:54 AM INPT NO TOBACCO USE IN LAST 30 D [facility] Jun 23, 2015 10:20 AM FORMER [...] ALL of a patient's completed or amended [place] Advance and Rescinded Directives. The entries below indicate that a directive exists for the patient, but an actual copy is not included with this document. The data comes from all [place] facilities. Date Advance Directives Provider Source Jul 15, 2016 ADVANCE DIRECTIVE TARTARO,ARIEL Brook [facility] Jul 15, 2016 ADVANCE DIRECTIVE DISCUSSION MAUREEN TREVINO [facility] Mar 22, 2016 CLINICAL WARNING GARY TYLERTuyet Brook [facility] Feb 05, 2011 CLINICAL WARNING LIZETH GABRIEL [facility] Dec 17, 2010 CLINICAL WARNING QUE CAMERON [facility] Aug 26, 2003 ADVANCE DIRECTIVE ELGIN HOOPER [facility] Radiology Reports: +/- 30 days of [...] the Encounter. The data comes from all [place] treatment facilities. 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 TECHNIQUE: 3 view(s) of the right foot, submitted to the [place] National Teleradiology Program (NTP) for interpretation. FINDINGS: [...] of osteomyelitis. READING PHYSICIAN: Wili Solorzano MD -[id number] 01/12/2024 12:16 CDT [facility] National Teleradiology Program [phone] (For Medical Practitioner Use Only) Attention Patients / Veterans: If you have questions or concerns about these test results, please contact your ordering provider or primary care team. Primary Interpreting Staff: RADIOLOGY,OUTSIDE SERVICE, Staff Physician / RADIOLOGY,OUTSIDE SERVICE [facility] Pathology Reports: +/- 30 days of the [...] the Encounter. The data comes from all [place] treatment facilities. Date/Time Pathology Report Provider Source Jan 10, 2024 03:00 PM LR MICROBIOLOGY RE PORT: Reporting Lab: [facility] [CLIA# [id number]] [place] [address] Accession [UID]: [id number] [[id number]] Received: Jan 10, 2024@15:09 Collection sample: TISSUE Collection date: Jan 10, 2024 15:00 Provider: PAMELA SANDHU Comment on specimen: 5th MPJ RIGHT, RECEIVED IN ANAEROBIC TRANSPORT VIAL Test(s) ordered: ANAEROBIC CULTURE............. completed: Jan 18, 2024 * BACTERIOLOGY FINAL REPORT => Jan 18, 2024 13:34 TECH CODE: [id number] CULTURE RESULTS: CUTIBACTERIUM ACNES - Quantity: 2+ Comment: No susceptibility testing performed. Bacteriology Remark(s): THIS REPORT IS FINAL =--=--=--=--=--=--=--=--=--=--=--=- -=--=--=--=--=--=--=--=--=--=--=--= --=--=-- Performing Laboratory: Bacteriology Report Performed By: [facility] [CLIA# [id number]] [place] [address] [facility] Jan 10, 2024 03:00 PM LR MICROBIOLOGY RE PORT: Reporting Lab: [facility] [CLIA# [id number]] [place] [address] Accession [UID]: [id number] [[id number]] Received: Jan 10, 2024@15:09 Collection sample: TISSUE Collection date: Jan 10, 2024 15:00 Provider: PAMELA SANDHU Comment on specimen: 5th MPJ RIGHT, RECEIVED IN ANAEROBIC TRANSPORT VIAL Test(s) ordered: GRAM STAIN.................... completed: Jan 10, 2024 15:51 CULTURE & SUSCEPTIBILITY...... completed: Jan 21, 2024 * BACTERIOLOGY FINAL REPORT => Jan 21, 2024 12:48 TECH CODE: [id number] GRAM STAIN: DIRECT SMEAR of specimen before culturing shows: 1+ PMNS 2+ EPITHELIAL CELLS NO ORGANISMS SEEN CULTURE PENDING CULTURE RESULTS: STAPHYLOCOCCUS WARNERI - Quantity: 1+ Comment: No susceptibility testing performed. Bacteriology Remark(s): THIS REPORT IS FINAL =--=--=--=--=--=--=--=--=--=--=--=- -=--=--=--=--=--=--=--=--=--=--=--= --=--=-- Performing Laboratory: Bacteriology Report Performed By: [facility] [CLIA# [id number]] [place] [address] [facility] Encounter Notes: All associated encounter notes This section contains the clinical notes associated to the Encounter. Date/Time Encounter Note(s) Provider Source Jan 11, 2024 01:10 PM OPHTHALMOLOGY TECH NICIAN NOTE: LOCAL TITLE: LEVEL VIAL SEALER NOTE STANDARD TITLE: LEVEL VIAL SEALER NOTE DATE OF NOTE: JAN 11, 2024@13:10 ENTRY DATE: JAN 11, 2024@13:10:54 AUTHOR: SUDHA BOYER COSIGNER: URGENCY: STATUS: COMPLETED Eye Start Exam Patient: NANDA PANDYA Sex: MALE SSN: [id number] Birthdate: [birth year] Chief complaint: My eyes are watering all the time and feel dry V/T/D/MR History of Present Illness: Location: Intensity: Duration: Full Exam Eye Medications Art tearing qhs both eyes Allergies: BRAZIL NUTS (Jun 12, 2006) ANIMALS (Dec 17, 2010) No new Allergies. Past Medical History: Hypertension Heart disease Past eye history: Cataracts : OU Past eye surgeries: Cataract: OU Social History: Alcohol use - No Tobacco use - No Family History: High blood pressure High cholesterol Heart disease or stroke: Last refraction: Vision: OD:CC(with glasses) OD: 20/25 Pinhole: 20/ Near: 20/ Vision: OS:CC(with glasses) 0S: 20/25-2 Pinhole: 20/ Near: 20/ Current glasses: OD:-0.75 +1.90H263 Prism: OS:+0.50 +0.25X50 Prism: Add: +2.75 Refraction: Manifest: YES Automated: NO OD:-0.75 +1.53N122 20/25 OS:plano +0.25X52 20/25-2 Balance: Add: +2.75 Near vision: OD 20: OS 20: OU Comment: Confrontational Lopez: Full to finger counting: Right: Yes Left: Yes Extra Ocular Movement: Normal Pupils: Right: Round Left: Round Size: Right: 1.5 Left: 1.5 React to light: Right: Yes Left: Yes Afferent pupil defect: Right:No Grade: Left: No Grade: Note: Intra-ocular pressure (IOP): OD: 16 OS: 15 iCare Dilation: mydriacyl 1% and neosynephrine OU Dec@13:23 /vincenzo/ SUDHA BOYER [facility] [employer] SERVICE REPRESENTATIVE Signed: 01/11/2024 13:23 SUDHA BOYER [facility] Jan 11, 2024 07:50 AM OPHTHALMOLOGY ATTE KIM NOTE: LOCAL TITLE: OPHTHALMOLOGY CLINIC NOTE STANDARD TITLE: OPHTHALMOLOGY ATTENDING NOTE DATE OF NOTE: JAN 11, 2024@07:50 ENTRY DATE: JAN 11, 2024@07:50:39 AUTHOR: SORAYA CAZARES EXP COSIGNER: URGENCY: STATUS: COMPLETED Eye Start Exam Patient: NANDA PANDYA Sex: MALE SSN: [id number] Birthdate: [birth year] Chief complaint: My eyes are watering all the time and feel dry V/T/D/MR History of Present Illness: Location: Intensity: Duration: Full Exam Eye Medications Art tearing qhs both eyes Allergies: BRAZIL NUTS (Jun 12, 2006) ANIMALS (Dec 17, 2010) No new Allergies. Past Medical History: Hypertension Heart disease Past eye history: Cataracts : OU Past eye surgeries: Cataract: OU Social History: Alcohol use - No Tobacco use - No Family History: High blood pressure High cholesterol Heart disease or stroke: Last refraction: Vision: OD:CC(with glasses) OD: 20/25 Pinhole: 20/ Near: 20/ Vision: OS:CC(with glasses) 0S: 20/25-2 Pinhole: 20/ Near: 20/ Current glasses: OD:-0.75 +1.91Y824 Prism: OS:+0.50 +0.25X50 Prism: Add: +2.75 Refraction: Manifest: YES Automated: NO OD:-0.75 +1.39M710 20/25 OS:plano +0.25X52 20/25-2 Balance: Add: +2.75 Near vision: OD 20: OS 20: OU Comment: Confrontational Lopez: Full to finger counting: Right: Yes Left: Yes Extra Ocular Movement: Normal Pupils: Right: Round Left: Round Size: Right: 1.5 Left: 1.5 React to light: Right: Yes Left: Yes Afferent pupil defect: Right:No Grade: Left: No Grade: Note: Intra-ocular pressure (IOP): OD: 16 OS: 15 iCare Dilation: mydriacyl 1% and neosynephrine OU Dec@13:23 /es/ SUDHA Ramachandran [facility] SERVICE REPRESENTATIVE Signed: 01/11/2024 13:23 gen exam: HPI: Here for 1y F/U RASHIDA, Meibomitis, Pseudophakia. I have reviewed the r&d lab technician's note and agree. 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 C/S - w/q; chalasis OU K - cl A/C - D/q I - Dilated OU L - PC IOL OU DFE - bilaterally: Vit - cl ON: pink/healthy c/d: OD - OS - M/V/P - flat. regular distrib. flat I/P: 1. PC IOL OU - ok 2. Meibomitis - minimal 3. RASHIDA/Epiphora - low baseline tear production with reflex tearing overwhelming poorly positioned puncta. Pt not interested in lid surgery, recommended he use AT's more frequently than QHS which is what he is doing. 4. Astigmatism - copy given rtc 1y: V/T/D/MR sooner with changes /es/ SORAYA CAZARES MD OPHTHALMOLOGY STAFF SURGEON Signed: 01/11/2024 13:53 SORAYA CAZARES [facility]
--- OUTSIDE RECORDS SUMMARY | 2024-01-24 02:30 | XMS_ITS | Encounter Summary ---
Author Name [facility] Organization [facility] [place] Address [address] [place] [id number] Care Team Providers Care Mogul Operator Name Role Phone NONA PAULINO Primary [...] Name Patient's Relationship to Policy Mandel [facility] (WNR) MEDICARE ADVANTAGE [facility] (WNR) May 02, 2016 [id number] [phone] Duarte PANDYA PATIENT [facility] (WNR) MEDICARE ADVANTAGE [facility] (WNR) May 02, 2016 [id number] [phone] Duarte PANDYA PATIENT Selected Encounter This section includes the information on record at [place] for the Encounter. Date/Time Encounter Type Encounter Description Reason Provider Source Jan 10, 2024 01:30 PM OFFICE O/P EST MOD 30 MIN PODIATRY ICD-10-CM L84 Corns and callosities SANDHU,PAMELA LARISSA Clar[place] Encounter Template Text not used by [place] Assessments - Encounter Diagnoses This section includes the primary and secondary diagnoses documented for the Encounter. Date/Time Primary/Secondary Diagnosis Diagnosis Name Provider Source Jan 11, 2024 08:49 AM PRIMARY Corns and callosities PAMELA SANDHU [facility] Jan 11, 2024 08:49 AM SECONDARY Idiopathic progressive neuropathy SANDHU,PAMELA LARISSA [facility] Jan 11, 2024 08:49 AM SECONDARY Lymphedema, not elsewhere classified SANDHUPAMELA DOYLE LARISSA [facility] Jan 11, 2024 08:49 AM SECONDARY Peripheral vascular disease, unspecified [facility] Plan of Treatment: Future Appointments (+ 6 months) and Future Tests (+/- 45 days) The Plan of Treatment section includes future care activities for the patient from all [place] [facility] This section includes future appointments and future orders which are active, pending or scheduled. Future Appointments This section includes appointments that were scheduled to occur 6 months from the date of the Encounter, up to a maximum of 20 appointments. The data comes from all [place] treatment facilities. Appointment Date/Time Appointment Type Appointme nt Facility Name Jan 11, 2024 01:20 PM AMBULATORY - SURGERY [facility] Jan 19, 2024 08:00 AM AMBULATORY - NONE [facility] Jan 25, 2024 10:00 AM AMBULATORY - REHAB MEDICIN E [facility] Jan 31, 2024 12:00 PM [facility] Feb 01, 2024 01:00 PM AMBULATORY - NONE [facility] Feb 01, 2024 01:30 PM AMBULATORY - SURGERY [facility] Social History: Smoking Status (Most current) and Tobacco Use (All prior to encounter date) This section includes the most current, and the historical, smoking and tobacco- related health factors from the [place] facility where the Encounter took place. Current Smoking Status This section includes the most current smoking, or tobacco-related health factor, from the [place] facility where the Encounter took place. Date/Time Current Smoking Status Comment Nette yousif Oct 24, 2023 02:30 PM VA-TOBACCO FORMER USER [facility] Tobacco Use History This section includes a history of the smoking, or tobacco-related health factors, that were collected on or before the date of the Encounter. The data comes from the [place] facility where the Encounter took place. Date/Time Smoking Status/Tobacco Use Comment F acility Oct 24, 2023 02:30 PM VA-TOBACCO QUIT 15 YRS OR MORE [facility] Jan 17, 2023 01:00 PM VA-TOBACCO FORMER USER [facility] Jan 17, 2023 01:00 PM VA-TOBACCO [...] NO TOBACCO USE IN LAST 30 D [facility] Jun 29, 2017 02:21 PM FORMER TOBACCO USER 7Y OR GREATE R [facility] September 16, 2016 05:29 AM INPT NO TOBACCO USE IN LAST 30 D [facility] May 06, 2016 10:21 AM FORMER TOBACCO USER 7Y OR GREATE R [facility] Mar 24, 2016 11:54 AM INPT NO TOBACCO USE IN LAST 30 D [facility] Jun 23, 2015 10:20 AM FORMER TOBACCO [...] USER 7Y OR GREATE R [facility] Advance Directives: All historical and current Section Date Range: From patient's date of to the date document was created. This section includes ALL of a patient's completed or amended [place] Advance and Rescinded Directives. The entries below indicate that a directive exists for the patient, but an actual copy is not included with this document. The data comes from all [facility]. Date Advance Directives Provider Source Jul 15, 2016 ADVANCE DIRECTIVE DISCUSSION MAUREEN TREVINO Brook [facility] Jul 15, 2016 ADVANCE DIRECTIVE BELINDAARIEL Brook [facility] Mar 22, 2016 CLINICAL WARNING PRUDENCIO TYLER [facility] Feb 05, 2011 CLINICAL WARNING LIZETH GABRIEL [facility] Dec 17, 2010 CLINICAL WARNING QUE CAMERON [facility] Aug 26, 2003 ADVANCE DIRECTIVE ELGIN HOOPER [facility] Radiology Reports: +/- 30 days of [...] the Encounter. The data comes from all [place] treatment facilities. 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 TECHNIQUE: 3 view(s) of the right foot, submitted to the [place] National Teleradiology Program (NTP) for interpretation. FINDINGS: [...] of osteomyelitis. READING PHYSICIAN: Wili Solorzano MD -[id number] 01/12/2024 12:16 CDT [facility] National Teleradiology Program [phone] (For Medical Practitioner Use Only) Attention Patients / Veterans: If you have questions or concerns about these test results, please contact your ordering provider or primary care team. Primary Interpreting Staff: RADIOLOGY,OUTSIDE SERVICE, Staff Physician / RADIOLOGY,OUTSIDE SERVICE [facility] Pathology Reports: +/- 30 days of [...] the Encounter. The data comes from all [place] treatment facilities. Date/Time Pathology Report Provider Source Jan 10, 2024 03:00 PM LR MICROBIOLOGY RE PORT: Reporting Lab: [facility] [CLIA# [id number]] [place] [address] Accession [UID]: [id number] [[id number]] Received: Jan 10, 2024@15:09 Collection sample: TISSUE Collection date: Jan 10, 2024 15:00 Provider: PAMELA SANDHU Comment on specimen: 5th MPJ RIGHT, RECEIVED IN ANAEROBIC TRANSPORT VIAL Test(s) ordered: ANAEROBIC CULTURE............. completed: Jan 18, 2024 * BACTERIOLOGY FINAL REPORT => Jan 18, 2024 13:34 TECH CODE: [id number] CULTURE RESULTS: CUTIBACTERIUM ACNES - Quantity: 2+ Comment: No susceptibility testing performed. Bacteriology Remark(s): THIS REPORT IS FINAL =--=--=--=--=--=--=--=--=--=--=--=- -=--=--=--=--=--=--=--=--=--=--=--= --=--=-- Performing Laboratory: Bacteriology Report Performed By: [facility] [CLIA# [id number]] [place] [address] [facility] Jan 10, 2024 03:00 PM LR MICROBIOLOGY RE PORT: Reporting Lab: [facility] [CLIA# [id number]] [place] [address] Accession [UID]: [id number] [[id number]] Received: Jan 10, 2024@15:09 Collection sample: TISSUE Collection date: Jan 10, 2024 15:00 Provider: PAMELA SANDHU Comment on specimen: 5th MPJ RIGHT, RECEIVED IN ANAEROBIC TRANSPORT VIAL Test(s) ordered: GRAM STAIN.................... completed: Jan 10, 2024 15:51 CULTURE & SUSCEPTIBILITY...... completed: Jan 21, 2024 * BACTERIOLOGY FINAL REPORT => Jan 21, 2024 12:48 TECH CODE: [id number] GRAM STAIN: DIRECT SMEAR of specimen before culturing shows: 1+ PMNS 2+ EPITHELIAL CELLS NO ORGANISMS SEEN CULTURE PENDING CULTURE RESULTS: STAPHYLOCOCCUS WARNERI - Quantity: 1+ Comment: No susceptibility testing performed. Bacteriology Remark(s): THIS REPORT IS FINAL =--=--=--=--=--=--=--=--=--=--=--=- -=--=--=--=--=--=--=--=--=--=--=--= --=--=-- Performing Laboratory: Bacteriology Report Performed By: [facility] [CLIA# [id number]] [place] [address] [facility] Encounter Notes: All associated encounter notes This section contains the clinical notes associated to the Encounter. Date/Time Encounter Note(s) Provider Source Jan 11, 2024 12:51 PM ADDENDUM: LOCAL TITLE: Addendum STANDARD TITLE: ADDENDUM DATE OF NOTE: JAN 11, 2024@12:51:33 ENTRY DATE: JAN 11, 2024@12:51:35 AUTHOR: TATIANNA CONNELLY COSIGNER: URGENCY: STATUS: COMPLETED Please set up skilled home health care for dressing changes / wound care. Begin dressing 3x weekly with home health Remove dressing 1. apply betadine 2. apply band aid. Offloading with mayorga shoe inserts, avoid walking barefoot. I modified his mayorga inserts to have a cut out in the area of ulceration. He is to wear the inserts in whichever shoes he is wearing. /es/ TATIANNA CONNELLY RN, A-C, [facility] REGISTERED NURSE Signed: 01/11/2024 12:52 Receipt Acknowledged By: 01/15/2024 22:39 /es/ NONA PAULINO MD Staff Physician 01/12/2024 09:30 /vincenzo/ GAURAV CRABTREE RN --- Original Document --- 01/10/24 PODIATRY CLINIC NOTE: Chief Complaint: This 88 year old MALE presents to podiatry for follow-up wound care. He continues to have an ulcerated callus on the 5th met head right foot. He has a lot of callus build up today. He is not interested in any type of bracing to help straighten the foot to offload this area. He recently recieved shoes and inserts. Has a lot of discomfort walking on the foot today Past Medical History: Hypertension (SCT 90279682) Simple obesity (SCT 272655519) Gastroesophageal reflux disease (SCT 440IMPOTENCE, ORGANIC (ICD-9-CM 607.84) Asthma (SCT 964813987) ANEMIA NOS (ICD-9-CM 285.9) HEMATURIA (ICD-9-CM 599.7) Sleep apnea (SCT 69239915) Empyema, Pleural (ICD-9-CM 510.9) Bigeminy (ICD-9-CM 427.89) Bradycardia (ICD-9-CM 427.89) Cardiomyopathy ([facility] 87955832) Arrhythmia ([facility] 406585377) Cataract nos (ICD-9-CM 366.9) Pseudophakia (ICD-9-CM V43.1) Benign prostatic hyperplasia ([facility] 381703122) Dizziness and giddiness ([facility] 978912018) Gomez's esophagus ([facility] 800211004) Atrial fibrillation ([facility] 47318660) COPD - Chronic obstructive pulmonary disease ([facility] 14835116) Nocturia ([facility] 574122611) Allergies: BRAZIL NUTS (Jun 12, 2006) ANIMALS [...] TAKE ONE TABLET BY MOUTH DAILY ACTIVE BANDAGE,FLEXIBLE FABRIC 1IN X 3IN USE 1 BANDAGE TOPICALLY PENDING DIRECTED DOXAZOSIN MESYLATE 2MG TAB TAKE ONE TABLET BY MOUTH AT ACTIVE BEDTIME FOR BPH (BENIGN PROSTATIC HYPERPLASIA) FAMOTIDINE 20MG TAB TAKE ONE TABLET BY MOUTH TWICE A DAY ACTIVE TO DECREASE STOMACH ACID FINASTERIDE 5MG TAB TAKE ONE TABLET BY MOUTH EVERY DAY FOR ACTIVE PROSTATE FLUTICAS 250/SALMETEROL 50 INHL DISK 60 [...] EVERY DAY FOR ACTIVE BLOOD PRESSURE NYSTATIN 161643 UNT/GM CREAM APPLY THIN LAYER TOPICALLY ACTIVE TWICE A DAY FOR RASH EXTERNAL USE ONLY POLYETHYLENE GLYCOL 3350 ORAL PWDR TAKE 17 GRAMS BY MOUTH ACTIVE EVERY DAY FOR CONSTIPATION - MIX IN 4 TO 8 OUNCES OF LIQUID DIRECTED*USE COVER TO MEASURE POWDER* POVIDONE IODINE 10% SWABSTICK APPLY 1 SWAB TO TOPICALLY PENDING EVERY DAY TIOTROPIUM 18MCG INHL CAP 30 INHALE [...] ACTIVE EACH NOSTRIL TWICE A DAY NEEDED Review of Systems:No fever, chills, nausea, vomiting, shortness of breath, chest pain, calf pain noted. Physical Exam: Cardiovascular: DP/ PT pulses are palpable Capillary refill is < 3 seconds Edema 2 + to LE varicosities present legs Temperature cool proximally to distally Hemosiderin deposits noted Dermatologic: The patient's nails appear incurvated, thickened, elongated, dystrophic, discolored with subungual debris X 10 Digital hair growth is absent Skin is of thinned texture and decreased turgor. ulceration noted sub 5th met head right foot, superficial with caseous exudate upon debridment of callus. Neurological: Vibratory (128-Hz tuning fork) sensation is diminished Monofilament (10-g) sensation is 0 /10 Sharp/dull is diminished Parasthesias present Musculoskeletal: Muscle Strength is 5/5 to bilateral lower extremities to all muscle groups Bunions Deformity mild Hammer digit deformity moderate, has history of partial toe amputation, traumatic Diagnosis: Diabetes with peripheral neuropathy Treatment: trimmed nails x 10, Debrided callus x 1 revealing some drainage from the wound which was cultured today. Begin dressing 3x weekly with home health Remove dressing 1. apply betadine 2. apply band aid. Offloading with mayorga shoe inserts, avoid walking barefoot. I modified his mayorga inserts to have a cut out in the area of ulceration. He is to wear the inserts in whichever shoes he is wearing. Plan Discussed in detail the etiology of ulceration. Discussed the importance of good hygiene and following conservative care instructions. Discussed the potential for infection and other risks, including osteomyelitis, if non-compliant. Patient verbalized understanding. Discussed the potential for loss of limb/life. Pt instructed on signs and symptoms of infection to watch for including N/F/V/C/SOB/CP, redness, increased drainage, malodor, etc. If any concern patient is to contact our office immediately or go to the Emergency Department. Pt acknowledge understanding. /vincenzo/ PAMELA Sandhu DPM STAFF SPRAY GUN REPAIRER HELPER Signed: 01/11/2024 08:49 Receipt Acknowledged By: 01/11/2024 12:49 /vincenzo/ TATIANNA CONNELLY RN, A-C, [facility] REGISTERED NURSE 01/12/2024 ADDENDUM STATUS: COMPLETED Consult placed for home wound care. /vincenzo/ GAURAV CRABTREE RN Signed: 01/12/2024 09:30 TATIANNA CONNELLY [facility] Jan 10, 2024 02:23 PM PODIATRY ATTENDING NOTE: LOCAL TITLE: PODIATRY CLINIC NOTE STANDARD TITLE: PODIATRY ATTENDING NOTE DATE OF NOTE: JAN 10, 2024@14:23 ENTRY DATE: JAN 10, 2024@14:23:51 AUTHOR: PAMELA SANDHU EXP COSIGNER: URGENCY: STATUS: COMPLETED PODIATRY CLINIC NOTE Has ADDENDA Chief Complaint: This 88 year old MALE presents to podiatry for follow-up wound care. He continues to have an ulcerated callus on the 5th met head right foot. He has a lot of callus build up today. He is not interested in any type of bracing to help straighten the foot to offload this area. He recently recieved shoes and inserts. Has a lot of discomfort walking on the foot today Past Medical History: Hypertension ([facility] 87852790) Simple obesity (SCT 517787402) Gastroesophageal reflux disease (SCT 235IMPOTENCE, ORGANIC (ICD-9-CM 607.84) Asthma (SCT 793735199) ANEMIA NOS (ICD-9-CM 285.9) HEMATURIA (ICD-9-CM 599.7) Sleep apnea (SCT 11029564) Empyema, Pleural (ICD-9-CM 510.9) Bigeminy (ICD-9-CM 427.89) Bradycardia (ICD-9-CM 427.89) Cardiomyopathy ([facility] 15387968) Arrhythmia ([facility] 179799495) Cataract nos (ICD-9-CM 366.9) Pseudophakia (ICD-9-CM V43.1) Benign prostatic hyperplasia ([facility] 488781816) Dizziness and giddiness ([facility] 611886203) Gomez's esophagus ([facility] 831271329) Atrial fibrillation ([facility] 94483878) COPD - Chronic obstructive pulmonary disease ([facility] 19871105) Nocturia ([facility] 285311215) Allergies: BRAZIL NUTS (Jun 12, 2006) ANIMALS [...] TAKE ONE TABLET BY MOUTH DAILY ACTIVE BANDAGE,FLEXIBLE FABRIC 1IN X 3IN USE 1 BANDAGE TOPICALLY PENDING DIRECTED DOXAZOSIN MESYLATE 2MG TAB TAKE ONE TABLET BY MOUTH AT ACTIVE BEDTIME FOR BPH (BENIGN PROSTATIC HYPERPLASIA) FAMOTIDINE 20MG TAB TAKE ONE TABLET BY MOUTH TWICE A DAY ACTIVE TO DECREASE STOMACH ACID FINASTERIDE 5MG TAB TAKE ONE TABLET BY MOUTH EVERY DAY FOR ACTIVE PROSTATE FLUTICAS 250/SALMETEROL 50 INHL DISK 60 [...] EVERY DAY FOR ACTIVE BLOOD PRESSURE NYSTATIN 070866 UNT/GM CREAM APPLY THIN LAYER TOPICALLY ACTIVE TWICE A DAY FOR RASH EXTERNAL USE ONLY POLYETHYLENE GLYCOL 3350 ORAL PWDR TAKE 17 GRAMS BY MOUTH ACTIVE EVERY DAY FOR CONSTIPATION - MIX IN 4 TO 8 OUNCES OF LIQUID DIRECTED*USE COVER TO MEASURE POWDER* POVIDONE IODINE 10% SWABSTICK APPLY 1 SWAB TO TOPICALLY PENDING EVERY DAY TIOTROPIUM 18MCG INHL CAP 30 INHALE [...] ACTIVE EACH NOSTRIL TWICE A DAY NEEDED Review of Systems:No fever, chills, nausea, vomiting, shortness of breath, chest pain, calf pain noted. Physical Exam: Cardiovascular: DP/ PT pulses are palpable Capillary refill is < 3 seconds Edema 2 + to LE varicosities present legs Temperature cool proximally to distally Hemosiderin deposits noted Dermatologic: The patient's nails appear incurvated, thickened, elongated, dystrophic, discolored with subungual debris X 10 Digital hair growth is absent Skin is of thinned texture and decreased turgor. ulceration noted sub 5th met head right foot, superficial with caseous exudate upon debridment of callus. Neurological: Vibratory (128-Hz tuning fork) sensation is diminished Monofilament (10-g) sensation is 0 /10 Sharp/dull is diminished Parasthesias present Musculoskeletal: Muscle Strength is 5/5 to bilateral lower extremities to all muscle groups Bunions Deformity mild Hammer digit deformity moderate, has history of partial toe amputation, traumatic Diagnosis: Diabetes with peripheral neuropathy Treatment: trimmed nails x 10, Debrided callus x 1 revealing some drainage from the wound which was cultured today. Begin dressing 3x weekly with home health Remove dressing 1. apply betadine 2. apply band aid. Offloading with mayorga shoe inserts, avoid walking barefoot. I modified his mayorga inserts to have a cut out in the area of ulceration. He is to wear the inserts in whichever shoes he is wearing. Plan Discussed in detail the etiology of ulceration. Discussed the importance of good hygiene and following conservative care instructions. Discussed the potential for infection and other risks, including osteomyelitis, if non-compliant. Patient verbalized understanding. Discussed the potential for loss of limb/life. Pt instructed on signs and symptoms of infection to watch for including N/F/V/C/SOB/CP, redness, increased drainage, malodor, etc. If any concern patient is to contact our office immediately or go to the Emergency Department. Pt acknowledge understanding. /vincenzo/ PAMELA Sandhu DPM STAFF SPRAY GUN REPAIRER HELPER Signed: 01/11/2024 08:49 Receipt Acknowledged By: 01/11/2024 12:49 /vincenzo/ TATIANNA CONNELLY RN, WTA-C, [facility] REGISTERED NURSE 01/11/2024 ADDENDUM STATUS: COMPLETED Please set up skilled home health care for dressing changes / wound care. Begin dressing 3x weekly with home health Remove dressing 1. apply betadine 2. apply band aid. Offloading with mayorga shoe inserts, avoid walking barefoot. I modified his mayorga inserts to have a cut out in the area of ulceration. He is to wear the inserts in whichever shoes he is wearing. /vicnenzo/ TATIANNA CONNELLY RN, WTA-C, [facility] REGISTERED NURSE Signed: 01/11/2024 12:52 Receipt Acknowledged By: * AWAITING SIGNATURE * NONA PAULINO 01/12/2024 09:30 /nichole CRABTREE RN 01/12/2024 ADDENDUM STATUS: COMPLETED Consult placed for home wound care. /nichole CRABTREE RN Signed: 01/12/2024 09:30 PAMELA SANDHU [facility]
--- OUTSIDE RECORDS SUMMARY | 2024-01-24 02:31 | XMS_ITS | Clinical Summary ---
Author Organization [facility] Address [place], [place] [address] Care Team Providers Care Local Superintendent Name Role Phone Kehinde Raman MD Primary Care Provider [phone] Allergies Active Allergy Reactions Criticality Noted Date [...] Comments Blood Pressure 132/66 03/22/2016 1:00 PM DRILL PRESS OPERATOR NUMERICAL CONTROL manual cuff Pulse 49 03/22/2016 1:00 PM DRILL PRESS OPERATOR NUMERICAL CONTROL Temperature 36.5 ??C (97.7 ??F) 03/22/2016 1 :00 PM DRILL PRESS OPERATOR NUMERICAL CONTROL Respiratory Rate - - Oxygen Saturation 99% 03/22/2016 1:0 0 PM DRILL PRESS OPERATOR NUMERICAL CONTROL Inhaled Oxygen Concentration - - Weight 121.1 kg (267 lb) 03/22/2016 1:0 0 PM DRILL PRESS OPERATOR NUMERICAL CONTROL declined to remove shoes Height 182.9 cm (6') 07/09/2008 2:56 PM CDT Body Mass Index 36.21 07/09/2008 2:56 PM CDT Plan of Treatment Health Maintenance Due Date Last Done Comments Tdap 1948 Depression screening for age 12+ 1949 BMI (ht and wt on same day) for age 18+ 1955 Tetanus booster 1957 Zoster (shingles) series for age 50+ (1 of 2) 03/25/19 87 RSV vaccine for adults or pr egnancy (1 - 1-dose 60+ series) 1997 Medicare Wellness for age 65+ 2002 Pneumococcal series for age 65+ (1 of 1 - PCV) 002 COVID-19 vaccine series ( - 2022-24 season) Influenza for age 65+ 01/01/2024 Advance Directives Documents on File Type Date Recorded Patient Fire Extinguisher Technician Expl anation Healthcare Directive 06/24/2016 9:35 AM [facility], 06/18/2016 Care Teams Local Superintendent Relationship Specialty Start Date End Date Kehinde Raman MD [address] [place] [address] PCP - General 06/04/08
--- OUTSIDE RECORDS SUMMARY | 2024-01-24 02:31 | XMS_ITS | Data Portability ---
Author Organization [place] [facility], [employer] Address [address] [place] [address] Assessment Encounter Date Assessment Date Assessment LastModified [...] Reason for Referral None Reported. 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 Gael day [facility] 2 21:30:32 Osteoarth ritis 533121310 Active 2021 Gaeldoug day [facility] 2 21:30:42 Onychomyc osis of toenails 140651117 Active 2021 Onychomyc osis of toenails; Original Code: 273818912 0 Origina tommie mcclellan: SNOMED CT Classi fication: Medical C onfirmati on Status: Confirmed Not Available [facility] 3 09:06:31 Foot pain 02827355 Active 2021 Foot pain; Original Code: 283058411 Original Karen m: SNOMED CT Classi fication: Medical C onfirmati on Status: Confirmed Not Available [facility] 3 09:06:31 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 34918379 Active 2021 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; Original Code: 875419210 Original Karen m: SNOMED CT Classi fication: Medical C onfirmati on Status: Confirmed Not Available [facility] 3 09:06:31 Chronic ulcer of foot 840045549 Active 2021 Chronic ulcer of foot; Original Code: 013645890 3 Origina l Karen m: SNOMED CT Classi fication: Medical C onfirmati on Status: Confirmed Not Available [facility] 3 09:06:31 Tailor's bunion of right foot 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 Procedures Surgical History Date Name Laterality Status Provider Name and Address Organization Details Recorded Time 04/06/[address] Calle completed Landon Valverde DPM [address] [place], [address], [facility] 04/06/2023 14:23:44 02/24/20 Routine Foot Care completed Kendra Del Real [facility] 02/23/2023 03:18:15 02/24/[address] Calle completed Kendra Del Real [facility] 02/23/2023 03:18:15 12/23/19 Routine Foot Care completed Landon Valverde DPM [address] [place], [address], [facility] 12/22/2022 16:15:18 12/23/[address] Calle completed Landon Valverde, JUAN [address] [place], [address], [facility] 12/22/2022 16:15:18 11/18/19 Routine Foot Care completed Landon Valverde DPM [address] [place], [address], [facility] 11/17/2022 19:16:24 11/18/[address] Calle completed Landon Valverde DPM [address] [place], [address], [facility] 11/17/2022 19:15:52 09/24/[address] Calle completed Gael Murillo [facility] 09/23/2022 14:32:33 07/23/[address] Calle completed Gael Murillo [facility] 07/22/2022 14:49:51 05/24/[address] Calle completed Gael [facility] 05/24/2022 12:19:06 04/01/[address] Calle completed Gael [facility] 03/31/2022 21:31:03 [...] Other Forms Of Tobacco Or Nicotine? [email or web address] Information not available 03/31/2022 Sex: Unknown Functional Status None recorded. Mental Status None recorded. Family History Nothing Reported. Medical History No medical history recorded. Past Encounters Encounter ID Performer Location Encounter Start Date Encounter Closed Date Diagnosis/Indication Diagnosis SNOMED-CT Code Diagnosis ICD10 Code [id number] [facility] [address] [place] [id number] 4 04/01/2022 16:43:44 04/05/2022 10:13:50 Onychomycosis 575259772 B35.1 Pain in right foot 30546 47019 13374 M79.671 Pain in left foot 692575 0542 93624 M79.672 Tailor's b union of right foot 5036434268 419070 M21.621 Ulcer of foot 96763756 L 97.511 [id number] [facility] [address] [place] [address] [id number] 4 05/24/2022 11:51:50 05/24/2022 13:01:26 Onychomycosis 847186840 B35.1 Pain in right foot 97361 67222 47874 M79.671 Pain in left foot 454045 0639 77485 M79.672 Tailor's b union of right foot 9091027304 765147 M21.621 Ulcer of foot 54917658 L 97.511 [id number] [facility] [address] [place] [address] 72420-151 4 07/22/2022 14:31:47 07/23/2022 09:39:29 Onychomycosis 758219627 B35.1 Pain in right foot 33411 45227 79093 M79.671 Pain in left foot 973838 4415 77980 M79.672 Tailor'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 union of right foot 3523371898 354300 M21.621 Ulcer of foot 20717787 L 97.511 Subungual abscess 455896 003 L02.519 [id number] [facility] [address] [place] [id number] 4 09/23/2022 14:04:54 09/28/2022 10:25:44 Onychomycosis 075300912 B35.1 Pain in right foot 18677 28315 01194 M79.671 Pain in left foot 350235 0757 28036 M79.672 Tailor's b union of right foot 4192701749 252274 M21.621 Subungual abscess 176063 003 L02.519 Foot callus 542910831 L8 4 [id number] Landon Valverde [facility] [address] [place] [address] [id number] 4 11/17/2022 15:46:29 11/18/2022 09:40:02 Onychomycosis 521094843 B35.1 Pain in right foot 19055 20578 69661 M79.671 Pain in left foot 406435 7812 60020 M79.672 Tailor's b union of right foot 7196853653 017589 M21.621 Foot callus 133743764 L8 4 Venous sta sis edema of bilateral lower limbs 2215903168 1234988 I87.2 [id number] Landon Valverde [facility] [address] [place] [address] [id number] 4 12/22/2022 14:36:07 12/23/2022 10:03:24 Onychomycosis 582018041 B35.1 Pain in right foot 95996 67558 15085 M79.671 Pain in left foot 588601 0259 96451 M79.672 Tailor's b union of right foot 6544817623 316883 M21.621 Foot callus 178063190 L8 4 Venous sta sis edema of bilateral lower limbs 5891640194 8298826 I87.2 [id number] [facility] [address] 4 02/23/2023 14:15:03 02/24/2023 10:48:10 Onychomycosis 703508030 B35.1 Pain in right foot 60140 45599 84841 M79.671 Pain in left foot 794551 8372 48849 M79.672 Tailor's b union of right foot 3068891126 255341 M21.621 Foot callus 323226478 L8 4 Venous sta sis edema of bilateral lower limbs 2700178701 0085209 I87.2 [id number] [facility] [address] [address] 4 04/06/2023 14:04:19 04/06/2023 17:57:16 Onychomycosis 704737398 B35.1 Pain in right foot 31309 23532 22614 M79.671 Pain in left foot 085761 8159 31317 M79.672 Tailor's b union of right foot 4995562204 320218 M21.621 Foot callus 016287328 L8 4 Venous sta sis edema of bilateral lower limbs 5444582338 8104627 I87.2 Health Concerns Section Related Observation LastModified by Organization Detai ls LastModified Time None Recorded Concern Status LastModified by Organization Details LastModified Time None Recorded Advance Directives Directive None Recorded Payers Encounter Date Sequence Insurance Name Policy Number Policy Mandel Covered Member ID Mandel Member ID Guarantor Name 09/23/2022 [facility] Daniel Warner [id number] Daniel Warner 11/17/2022 [facility] Daniel Warner [id number] Daniel Warner 12/22/2022 [facility] Daniel Warner [id number] Daniel Warner 02/23/2023 [facility] Daniel Warner [id number] Daniel Warner 04/06/2023 [facility] Daniel Warner [id number] Daniel Warner Notes Date Note Type Note [...] again. Denies any drainage, slight swelling. Gael day, [facility] 10/05/2022 16:13:53 11/17/2022 text/html HPI Notes: This established patient ptc for evaluation and treatment of painful, thick toenails b/l they are unable to trim. They are painful in shoes and with pressure. The sore to his lateral right foot is just starting to bother again. Denies any drainage, slight swelling. Landon Valverde DPM [address] [place], [address], [facility] 11/17/2022 19:16:57 12/22/2022 text/html HPI Notes: This established patient ptc for evaluation and treatment of painful, thick toenails b/l they are unable to trim. They are painful in shoes and with pressure. The sore to his lateral right foot is just starting to bother again. Denies any drainage, slight swelling. Landon Valverde DPM [address] [place], [address], [facility] 12/22/2022 16:15:28 02/23/2023 text/html HPI Notes: This established patient ptc for evaluation and treatment of painful, thick toenails b/l they are unable to trim. They are painful in shoes and with pressure. The sore to his lateral right foot is just starting to bother again. Denies any drainage, slight swelling. Landon Valverde DPM [address] [place], [address], [facility] 02/23/2023 15:47:55 04/06/2023 text/html HPI Notes: This established patient ptc for evaluation and treatment of painful, thick toenails b/l they are unable to trim. They are painful in shoes and with pressure. The sore to his lateral right foot is just starting to bother again. Denies any drainage, slight swelling. Landon Valverde, JUAN [address] [place], [address], [facility] 04/06/2023 14:24:02
[2024-01-24 02:45] LABS: PCR FLU A Negative PCR FLU A (Negative); PCR FLU B Negative PCR FLU B (Negative); PCR RSV Negative PCR RSV (Negative); SARS PCR* Negative SARS-CoV-2 (Negative)
[2024-01-24 03:06] LABS: Basophils Absolute Auto 0.03 K/uL (0.00-0.30); Basophils Percent Auto 0.3 % (0.0-3.0); Eosinophils Absolute Auto 0.03 K/uL (0.00-0.50); Eosinophils Percent Auto 0.3 % (0.0-7.0); Hematocrit 39.4 % (37.0-53.0); Immature Granulocytes Abs Auto 0.02 K/uL (0.00-0.30); Immature Granulocytes Pct Auto 0.2 %; Lymphocytes Percent Auto 6.5 % (20-44); Mean Corpuscular HGB Conc 33 gm/dL (32-36); Mean Corpuscular Hemoglobin 31 pg (26-34); Mean Corpuscular Volume 93 fL (80-100); Monocytes Percent Auto 8.1 % (0.0-11.0); Neutrophils Percent Auto 84.6 % (42.0-72.0); Platelet Count* 161 K/uL (140-440); RDW Coefficient of Variation % 13.1 % (11.5-15.5); Red Blood Count 4.26 m/uL (4.30-5.90); White Blood Count* 8.93 K/uL (4.50-11.00)
[2024-01-24 03:07] LABS: Slide Review Reflex No
[2024-01-24 03:15] LABS: Appearance Urine Clear (Clear); Bilirubin Urine Negative (Negative); Blood Urine Negative (Negative); Color Urine Yellow (Yellow); Glucose Urine Negative (Negative); Ketones Urine 3+ (Negative); Leukocyte Esterase Urine Negative (Negative); Nitrite Urine Negative (Negative); Protein Urine Negative (Negative); Specific Gravity Urine >= 1.030 (1.000-1.030); Urobilinogen Urine 0.2 (0.2-1.0); pH Urine 5.5 (5.0-8.5)
[2024-01-24 03:18] LABS: Chloride* 106 mmol/L (96-114); Potassium* 4.2 mmol/L (3.6-5.1); Sodium* 136 mmol/L (135-149)
[2024-01-24 03:21] LABS: Anion Gap 8 mEq/L (7-15); Blood Urea Nitrogen* 21 mg/dL (7-30); Carbon Dioxide* 22 mmol/L (20-32); Creatinine* 0.8 mg/dL (0.5-1.5); Estimated Glomerular Filt Rate 86 ml/min; Glucose* 129 mg/dL (60-115)
[2024-01-24 03:30] VITALS: TEMP 38.7
[2024-01-24] MEDS: ACETAMINOPHEN 500 MG TABLET 1000 MG PO (03:30)
[2024-01-24 03:35] VITALS: BP 160/87; PULSE 95; RESP 20; TEMP 38.7; O2SAT 95
[2024-01-24 03:39] LABS: RBC Urine 0-2 (0-2); WBC Urine 0-2 (0-5)
--- NOTE | 2024-01-24 03:49 | CRLHL7_ITS ---
For Patients: As a result of the Century Cures Act, medical imaging exams and procedure reports are released immediately into your electronic medical record. You may view this report before your referring provider. If you have questions, please contact your health care provider. Indication: Fever of unknown origin. Technique: CT of the chest, abdomen and pelvis was performed following the administration of 137 mL Isovue 370. Comparison: Same day chest radiograph. Findings: CHEST Lungs and pleura: 7 mm right lower lobe noncalcified pulmonary nodule (3/53). Scattered smaller noncalcified pulmonary nodules elsewhere involving both lungs, for example in the right middle lobe (3/70). No pleural effusion or pneumothorax. Linear scarring versus subsegmental atelectasis within the lower lobes. Left pleural calcifications. Heart and great vessels: The heart is normal in size. Small pericardial effusion. Aorta and pulmonary artery are normal in caliber. Thyroid and mediastinum: Thyroid is normal. No mediastinal lymphadenopathy by size criteria. Chest wall: Osseous demineralization. Multilevel degenerative disc disease. Diffuse idiopathic skeletal hyperostosis. ABDOMEN AND PELVIS Liver: Mild hepatic steatosis. Large lamellated gallstone within the gallbladder body. No pericholecystic inflammatory change. No biliary ductal dilation. Pancreas: Fatty replacement of the pancreas. No pancreatic ductal dilation. Spleen: Unremarkable. 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 Left adrenal gland is normal. Kidneys: Bilateral renal sinus cysts as well as right lower pole renal cortical cyst. No hydronephrosis or nephrolithiasis. Aorta/IVC: Mild atherosclerotic aortic calcifications without aneurysmal dilation. Lymph nodes: No lymphadenopathy. Bowel: Nonobstructed bowel. Scattered colonic diverticula without findings of acute diverticulitis. Normal appendix. Large hiatal hernia containing the entire stomach. No upstream esophageal dilation. No localized inflammatory changes. No intraperitoneal free air or fluid. Pelvis: Dystrophic prostate calcifications. Bones/body wall: Ventral abdominal wall fat containing hernia. Osseous demineralization. Multilevel degenerative disc disease and lower lumbar facet arthropathy. Impression: 1. No acute abnormality identified in the chest, abdomen or pelvis. 2. Cholelithiasis without CT evidence of acute cholecystitis. 3. Colonic diverticulosis. 4. Hepatic steatosis. 5. Large hiatal hernia without evidence of bowel obstruction. 6. Scattered noncalcified pulmonary nodules, the largest measures 7 mm in the right lower lobe. Recommend chest CT follow-up in 6-12 months. 7. Small pericardial effusion. Please note that all CT scans at this facility use dose modulation, iterative reconstruction, and/or weight-based dosing when appropriate to reduce radiation dose to as low as reasonably achievable. Dictated by Casie Doshi MD @ 01/24/2024 5:03:15 AM (Electronically Signed)
[2024-01-24] MEDS: 0.9 % SODIUM CHLORIDE 1000 ml 1,000 ML IV (04:04)
[2024-01-24 04:07] VITALS: BP 131/64; PULSE 103; RESP 20; TEMP 38.2; O2SAT 95
[2024-01-24 04:28] LABS: Albumin* 3.8 g/dL (3.3-5.0)
[2024-01-24 04:31] LABS: Alkaline Phosphatase* 69 U/L (40-150); Aspartate Amino Transferase* 23 U/L (12-35); Bilirubin Direct* 0.3 mg/dL (0.0-0.5); Bilirubin Total* 0.9 mg/dL (0.1-1.5)
[2024-01-24 04:32] LABS: Alanine Aminotransferase* 13 U/L (4-50)
[2024-01-24 05:02] VITALS: BP 131/74; PULSE 80; RESP 18; TEMP 38; O2SAT 90
== END 2024-01-24 05:31 | disposition home or self-care (01) ==
PROVIDERS: Emergency Provider Family Medicine
DX: R50.9 Fever, unspecified (principal); B34.9 Viral infection, unspecified
CPT/HCPCS: 36415; 71046; 71260; 74177; 80048; 80076; 81001; 85025; 87040; 87631; 99284; 99285; A9270; J7030; Q9967

== ENCOUNTER 2024-10-01 13:37 | Emergency (ER) | payer OTHER, MEDICARE, BC, SELFPAY ==
[2024-10-01] VITALS (22 sets, daily range): BP systolic 138–147; BP diastolic 69–83; PULSE 65–93; RESP 18; TEMP 37; O2SAT 93–98; BMI 35.3
--- OUTSIDE RECORDS SUMMARY | 2024-10-01 13:40 | XMS_ITS | Data Portability ---
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 Gael day [facility] 2 21:30:32 Osteoarth ritis 549161225 Active 2021 Gaeldoug day [facility] 2 21:30:42 Onychomyc osis of toenails 061236925 Active 2021 Onychomyc osis of toenails; Original Code: [id number] 0 Origina tommie mcclellan: SNOMED CT Classi fication: Medical C onfirmati on Status: Confirmed Not Available [facility] 3 09:06:31 Foot pain 52261187 Active 2021 Foot pain; Original Code: 201037171 Original Karen m: SNOMED CT Classi fication: Medical C onfirmati on Status: Confirmed Not Available [facility] 3 09:06:31 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; Original Code: 839092773 Original Karen m: SNOMED CT Classi fication: Medical C onfirmati on Status: Confirmed Not Available [facility] 3 09:06:31 Chronic ulcer of foot 387110237 Active 2021 Chronic ulcer of foot; Original Code: 483334282 3 Origina l Karen m: SNOMED CT Classi fication: Medical C onfirmati on Status: Confirmed Not Available [facility] 3 09:06:31 Tailor's bunion of right foot 38342886549 47796 Active 2021 Tailor's bunion of right foot; Original Code: 971214829 7 Origina l Codesyste m: SNOMED CT Classi fication: Medical C onfirmati on Status: Confirmed Not Available [facility] 09:06:31 Problem Notes None recorded. Procedures Surgical History Date Name Laterality Status Provider Name and Address Organization Details Recorded Time 04/06/[address] Calle completed Landon Valverde DPM [address] [place], [address], [facility] 04/06/2023 14:23:44 02/24/20 Routine Foot Care completed Kendra Del Real [facility] 02/23/2023 03:18:15 02/24/[address] Calle completed Kendra Del Real [facility] 02/23/2023 03:18:15 12/23/19 Routine Foot Care completed Landon Valverde DPM [address] [place], [address], [facility] 12/22/2022 16:15:18 12/23/[address] Calle completed Landon Valverde, JUAN [address] [place], [address], [facility] 12/22/2022 16:15:18 11/18/19 Routine Foot Care completed Landon Valverde DPM [address] [place], [address], [facility] 11/17/2022 19:16:24 11/18/[address] Calle completed Landon Valverde DPM [address] [place], [address], [facility] 11/17/2022 19:15:52 09/24/[address] Calle completed Gael Murillo [facility] 09/23/2022 14:32:33 07/23/[address] Calle completed Gael Murillo [facility] 07/22/2022 14:49:51 05/24/[address] Alva Murillo [place] - [facility] 05/24/2022 12:19:06 04/01/[address] Alva Murillo [place] - [facility] 03/31/2022 21:31:03 Imaging Results None recorded. Procedure Notes None recorded. Medical Equipment None Reported. Allergies No known drug allergies Vitals None Recorded Social History Question Answer Notes LastModified by Organization D etails LastModified Time Have You Ever Been Counseled For Unhealthy Alcohol Use? No [email or web address] Information not available 03/31/2022 Sex: Unknown Functional Status Question Answer Note LastModified by Organizat ion Details LastModified Time Do you or have you ever used any other forms of tobacco or nicotine? [email or web address] Information not available 03/31/2022 What is your level of alcohol consumption? Occasional Information not available 03/31/2022 Mental Status None recorded. Family History Nothing Reported. Medical History No medical history recorded. Past Encounters Encounter ID Performer Location Encounter Start Date Encounter Closed Date Diagnosis/Indication Diagnosis SNOMED-CT Code Diagnosis ICD10 Code Diagnosis Note [id number] Gael Murillo, [place] [facility] [address] [facility] [address] [place] [address] 04/01/2022 16:43:44 04/05/2022 10:13:50 Onychomycosis 301161984 B35.1 See procedure note. Pain in right foot 06885 15607 84409 M79.671 Pain in left foot 283032 5674 80313 M79.672 Tailor's b union of right foot 9727379538 757723 M21.621 Ulcer of foot 22959620 L 97.511 Patient presents with a sore on his right foot. Based on history, physical exam, and prior diagnostic testing/tr eatments, I recommend ulcer debridemen t: he patient was made aware of the risks and benefits of the procedure and potential problems that may occur during the recuperati ve period including, but not limited to infection, major bleeding, nerve injury and tendon injury, the benefits of the procedure, including relief of symptoms and enhancing wound healing and avoiding future infections , and alternativ es including declining the proposed procedure now (or in the future) and observatio n. The patient s questions were answered and the patient agrees to undergo the treatment, and understand s that this treatment may be repeated as necessary with future visits. Wound Debridemen t #1:Ulcerat ed callus plantar right 5th MTH. Procedure( s) performed included: Incisional debridemen t utilizing a #15 blade to subcutaneo us level, with continual attendance after verificati on of the correct patient, site and procedure. No anesthesia was required for this wound procedure. Hemostasis was achieved following debridemen t and immediate post-proce dure cares and follow-up instructio ns are detailed. Discussed treatment plan and care instructio ns with patient. [id number] Gael Murillo DPM [place] [facility] [address] [facility] [address] [place] [address] 05/24/2022 11:51:50 05/24/2022 13:01:26 Onychomycosis 127923014 B35.1 See procedure note. Patient to rtc in 3 months or sooner if problems. Pain in right foot 99296 97339 02136 M79.671 Pain in left foot 392997 0108 09893 M79.672 Tailor's b union of right foot 7797869193 582297 M21.621 Ulcer of foot 22093261 L 97.511 Patient presents with a sore on his right foot. Based on history, physical exam, and prior diagnostic testing/tr eatments, I recommend ulcer debridemen t: he patient was made aware of the risks and benefits of the procedure and potential problems that may occur during the recuperati ve period including, but not limited to infection, major bleeding, nerve injury and tendon injury, the benefits of the procedure, including relief of symptoms and enhancing wound healing and avoiding future infections , and alternativ es including declining the proposed procedure now (or in the future) and observatio n. The patient s questions were answered and the patient agrees to undergo the treatment, and understand s that this treatment may be repeated as necessary with future visits. Wound Debridemen t #1:Ulcerat ed callus plantar right 5th MTH. Procedure( s) performed included: Incisional debridemen t utilizing a #15 blade to subcutaneo us level, with continual attendance after verificati on of the correct patient, site and procedure. No anesthesia was required for this wound procedure. Hemostasis was achieved following debridemen t and immediate post-proce dure cares and follow-up instructio ns are detailed. Discussed treatment plan and care instructio ns with patient. [id number] Gael Murillo DPM [place] [facility] [place] [address] 07/22/2022 14:31:47 07/23/2022 09:39:29 Onychomycosis 699497030 B35.1 See procedure note. An ABN was reviewed and signed today Patient to rtc in 3 months or sooner if problems. Pain in right foot 24001 14903 87729 M79.671 Pain in left foot 853425 1103 77274 M79.672 Tailor's b union of right foot 1989814116 593165 M21.621 Ulcer of foot 03556959 L 97.511 Patient presents with a sore on his right foot. Based on history, physical exam, and prior diagnostic testing/tr eatments, I recommend ulcer debridemen t: he patient was made aware of the risks and benefits of the procedure and potential problems that may occur during the recuperati ve period including, but not limited to infection, major bleeding, nerve injury and tendon injury, the benefits of the procedure, including relief of symptoms and enhancing wound healing and avoiding future infections , and alternativ es including declining the proposed procedure now (or in the future) and observatio n. The patient s questions were answered and the patient agrees to undergo the treatment, and understand s that this treatment may be repeated as necessary with future visits. Wound Debridemen t #1:Ulcerat ed callus plantar right 5th MTH. Procedure( s) performed included: Incisional debridemen t utilizing a #15 blade to dermal level, 1 cm2, with continual attendance after verificati on of the correct patient, site and procedure. No anesthesia was required for this wound procedure. Hemostasis was achieved following debridemen t and immediate post-proce dure cares and follow-up instructio ns are detailed. Discussed treatment plan and care instructio ns with patient. Subungual abscess 955733 003 L02.519 Drained the abscess.Ap plied Bacitracin ointment and a bandage.Wi ll monitor for soi. [id number] Gael Murillo DPM [place] [facility] [address] [place] [address] 09/23/2022 14:04:54 09/28/2022 10:25:44 Onychomycosis 564450840 B35.1 See procedure note. An ABN was reviewed and signed today Patient to rtc in 3 months or sooner if problems. Pain in right foot 36511 70075 95960 M79.671 Pain in left foot 825858 8626 93442 M79.672 Tailor's b union of right foot 8650090495 890684 M21.621 Subungual abscess 229479 003 L02.519 Procedure: Drained the abscess with a soft tissue nippers to include removal of devitalize d tissue and serous discharge. Applied Bacitracin ointment and a bandage. He was instructed on after care with soaking and abx oint w/ bandage.Wi ll monitor for soi. Foot callus 309712913 L8 4 Patient presents with painful callus/es. Based on history, physical exam and prior diagnostic tests/carmelita tments, I recommend debridemen t of the callus. Discussed treatment plan. The callus x1 was debrided with a #15 blade to tolerance without incident. [id number] Landon Valverde DPM [facility] [facility] [address] [place] [address] 11/17/2022 15:46:29 11/18/2022 09:40:02 Onychomycosis 839166878 B35.1 See procedure note. An ABN was reviewed and signed today Patient to rtc in 3 months or sooner if problems. Pain in right foot 63695 84484 02079 M79.671 Pain in left foot 486400 4378 02040 M79.672 Tailor's b union of right foot 9694349423 097157 M21.621 Foot callus 325557023 L8 4 Patient presents with painful callus/es. Based on history, physical exam and prior diagnostic tests/carmelita tments, I recommend debridemen t of the callus. Discussed treatment plan. The callus x1 was debrided with a #15 blade to tolerance without incident. Venous sta sis edema of bilateral lower limbs 3456702474 6976903 I87.2 Will order US for results [id number] Landon Valverde DPM [facility] [facility] [address] [place] [address] 12/22/2022 14:36:07 12/23/2022 10:03:24 Onychomycosis 109405732 B35.1 See procedure note. An ABN was reviewed and signed today Patient to rtc in 3 months or sooner if problems. Pain in right foot 58427 49390 90288 M79.671 Pain in left foot 733911 5761 99811 M79.672 Tailor's b union of right foot 9710025281 923937 M21.621 Foot callus 908021843 L8 4 Patient presents with painful callus/es. Based on history, physical exam and prior diagnostic tests/carmelita tments, I recommend debridemen t of the callus. Discussed treatment plan. The callus x1 was debrided with a #15 blade to tolerance without incident. Venous sta sis edema of bilateral lower limbs 0860745802 3084321 I87.2 Will order US for results [id number] Landon Valverde DPM [facility] [facility] [address] [place] [address] 02/23/2023 14:15:03 02/24/2023 10:48:10 Onychomycosis 983073837 B35.1 See procedure note. An ABN was reviewed and signed today Patient to rtc in 3 months or sooner if problems. Pain in right foot 25995 30909 34563 M79.671 Pain in left foot 507058 6977 97921 M79.672 Tailor's b union of right foot 3997554238 705930 M21.621 Foot callus 001474536 L8 4 Patient presents with painful callus/es. Based on history, physical exam and prior diagnostic tests/carmelita tments, I recommend debridemen t of the callus. Discussed treatment plan. The callus x1 was debrided with a #15 blade to tolerance without incident. Venous sta sis edema of bilateral lower limbs 7586648508 5845643 I87.2 Will order US [place] through the [place] [id number] Landon Valverde DPM [facility] [employer] [facility] [address] [place] [address] 04/06/2023 14:04:19 04/06/2023 17:57:16 Onychomycosis 904531377 B35.1 See procedure note. An ABN was reviewed and signed today Patient to rtc in 3 months or sooner if problems. Pain in right foot 20797 44075 52217 M79.671 Pain in left foot 059263 4806 63798 M79.672 Tailor's b union of right foot 1083298120 805950 M21.621 Foot callus 160926122 L8 4 Patient presents with painful callus/es. Based on history, physical exam and prior diagnostic tests/carmelita tments, I recommend debridemen t of the callus. Discussed treatment plan. The callus x1 was debrided with a #15 blade to tolerance without incident. Venous sta sis edema of bilateral lower limbs 8825639505 0425708 I87.2 Will order US for results through the [facility] Related Observation LastModified by Organization Detai ls LastModified Time None Recorded Concern Status LastModified by Organization Details LastModified Time None Recorded Advance Directives Directive None Recorded Payers Encounter Date Sequence Insurance Name Policy Number Policy Mandel Covered Member ID Mandel Member ID Guarantor Name 09/23/2022 [facility] Daniel Warner [id number] Daniel Warner 11/17/2022 [facility] Daniel Warner [id number] Daniel Warner 12/22/2022 [facility] ([facility] Daniel Warner [id number] Daniel Warner 02/23/2023 [facility] ([facility] Daniel Warner [id number] Daniel Warner 04/06/2023 [facility] ([facility] Daniel Warner [id number] Daniel Warner Notes Date Note Type Note Provider Name and Address Organization Details Recorded Time 09/23/2022 text/html This established patient ptc for evaluation and treatment of painful, thick toenails b/l they are unable to trim. They are painful in shoes and with pressure.The sore to his lateral right foot is just starting to bother again. Denies any drainage, slight swelling. [facility] 10/05/2022 16:13:53 11/17/2022 text/html This established patient ptc for evaluation and treatment of painful, thick toenails b/l they are unable to trim. They are painful in shoes and with pressure.The sore to his lateral right foot is just starting to bother again. Denies any drainage, slight swelling. Landon Valverde DPM [address] [place], [address], [facility] 11/17/2022 19:16:57 12/22/2022 text/html This established patient [facility] for evaluation and treatment of painful, thick toenails b/l they are unable to trim. They are painful in shoes and with pressure.The sore to his lateral right foot is just starting to bother again. Denies any drainage, slight swelling. aLndon Valverde DPM [address] [place], [address], [facility] 12/22/2022 16:15:28 02/23/2023 text/html This established patient [facility] for evaluation and treatment of painful, thick toenails b/l they are unable to trim. They are painful in shoes and with pressure.The sore to his lateral right foot is just starting to bother again. Denies any drainage, slight swelling. Landon Valverde DPM [address] [place], [address], [facility] 02/23/2023 15:47:55 04/06/2023 text/html This established patient [facility] for evaluation and treatment of painful, thick toenails b/l they are unable to trim. They are painful in shoes and with pressure.The sore to his lateral right foot is just starting to bother again. Denies any drainage, slight swelling. Landon Valverde DPM [address] [place], [address], [facility] 04/06/2023 14:24:02
--- OUTSIDE RECORDS SUMMARY | 2024-10-01 13:40 | XMS_ITS | Clinical Summary ---
Author Organization [facility] [facility] [employer] Address [address] [place] [address] Care Team Providers Care Marbleizer Name Role Phone Kehinde Raman MD Primary Care Provider [phone] Allergies Active Allergy Reactions Criticality Noted Date Comments Influenza Virus Vaccines 05/23/2008 Medications DOXAZOSIN 8 MG TAB 1 tablet at HS daily 0 9 Active TRIAMCINOLONE ACETONIDE 0.1 % LOTION apply locally to irratated area BID as needed 0 9 Active OMEPRAZOLE 20 MG CAP, DELAYED RELEASE one casule daily 30 min before a meal 0 9 Active MOMETASONE 220 MCG (120 DOSES) BREATH ACTIVATED POWDER AEROSOL one puff every day, rinse after using, do not breathe out through the inhaler, do not wash inhaler 0 9 Active ALBUTEROL 90 MCG/ACTUATION AEROSOL INHALER inhale 2 puffs every QID as needed 0 9 Active FORMOTEROL FUMARATE 12 MCG CAPS WITH INHALATION DEVICE inhale one capsule every 12 hours 0 9 Active IBUPROFEN 200 MG TAB 2 tablets daily, prn 0 9 Active ASPIRIN 81 MG TAB, DELAYED RELEASE 1 tablet daily 0 9 Active LOSARTAN 100 MG TABIndications: HTN (hypertension) take1 tablet daily 90 4 9 Active Active Problems Problem Noted Date Diagnosed [...] Recorded Sex Assigned at Not on file Legal Sex Male 6:31 AM [employer] Gender Identity Not on file Sexual Orientation Not on file Obstetrics History Last Filed Vital Signs Vital Sign Reading Time Taken Comments Blood Pressure 132/66 03/22/2016 1:00 PM [employer] 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 Pulse 49 03/22/2016 1:00 PM [employer] SERVICE MANAGER Temperature 36.5 C (97.7 F) 03/22/2016 1:00 PM [employer] SERVICE MANAGER Respiratory Rate - - Oxygen Saturation 99% 03/22/2016 1:0 0 PM [employer] SERVICE MANAGER Inhaled Oxygen Concentration - - Weight 121.1 kg (267 lb) 03/22/2016 1:0 0 PM W[employer] FIELD SERVICE 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 declined to remove shoes Height 182.9 cm (6') 07/09/2008 2:56 PM CDT Body Mass Index 36.21 07/09/2008 2:56 PM CDT Plan of Treatment Health Maintenance Due Date Last Done Comments Tdap 1948 Depression screening for age 12+ 1949 BMI (ht and wt on same day) for age 18+ 1955 Tetanus booster 1957 Pneumococcal series for age 50+ (1 of 1 - PCV) 1987 Zoster (shingles) series for age 50+ (1 of 2) 1987 Medicare Wellness for age 65+ 2002 RSV vaccine for adults or (1 - 1-dose 75+ series) 2012 COVID-19 vaccine series ( - 2023- season) 2024 Influenza Vaccine (Season Ended) 2024 Hepatitis B series for 19+ Aged Out N o longer eligible based on patient's age to complete this topic Insurance [employer] [place] ONLY Advance Directives Documents on File Type Date Recorded Patient Spiral Winder Expl anation Healthcare Directive 06/24/2016 9:35 AM ARNALDO, 06/18/2016 Care Teams Mar[place]izer Relationship Specialty Start Date End Date Kehinde Raman MD [address] [place] [address] PCP - General 06/04/08
--- NOTE | 2024-10-01 13:49 | ED.GENADULT ---
HPI - General Adult General Time Seen by Provider: 13:49 Date Seen: 10/01/24 Chief complaint: Cough Stated complaint: Short of breath, congestion Time Seen by Provider: 10/01/24 13:39 Source: patient and RN notes reviewed Mode of arrival: ambulatory Limitations: no limitations History of Present Illness HPI narrative: This 89-year-old male is coming in of his own accord for coughing and lung congestion. He was talking to [facility]. He has been dealing with some lightheadedness and dizziness, completed a monitor. Reportedly has underlying arrhythmia, possibly atrial fibrillation, and they are looking at maybe doing an ablation. He told his care provider about his congestion and cough, he told him to be seen. He had some chills the other morning nothing recently, has not felt like he has had a fever. He is short of breath with this, coughing up green phlegm. There is some nasal congestion but the primary concern is the cough. He has been sick for a week now. His lower extremity swelling is at baseline. He states he has peripheral neuropathy, does wear compression stockings. Related Data Home Medications ?Medication ?Instructions ?Recorded ?Confirmed albuterol 90 mcg/actuation aerosol mcg inhalation 01/24/24 inhaler amiodarone 100 mg tablet 100 mg PO DAILY 01/24/24 01/24/24 amiodarone 200 mg tablet 200 mg PO DAILY 01/24/24 01/24/24 amlodipine 5 mg tablet 5 mg PO DAILY 01/24/24 01/24/24 carboxymethylcellulose sodium 1 % 1 drp ophthalmic (eye) DAILY 01/24/24 01/24/24 eye drops (Artificial Tears (carboxymethylcellulose)) doxazosin 2 mg tablet 2 mg PO DAILY 01/24/24 01/24/24 famotidine 20 mg tablet (Acid 20 mg PO DAILY 01/24/24 01/24/24 Director Of Officiating (famotidine)) finasteride 1 mg tablet 1 mg PO DAILY 01/24/24 01/24/24 fluticasone 250 mcg-salmeterol 50 1 inh inhalation BID 01/24/24 01/24/24 mcg/dose blistr powdr for inhalation losartan 50 mg tablet (Cozaar) 50 mg PO DAILY 01/24/24 01/24/24 nystatin 100,000 unit/gram topical 1 applic topical DAILY 01/24/24 01/24/24 cream polyethylene glycol 3350 17 4 g PO DAILY 01/24/24 01/24/24 gram/dose oral powder tiotropium bromide 18 mcg capsule 1 cap inhalation DAILY 01/24/24 01/24/24 with inhalation device Allergies Allergy/AdvReac Type Severity Reaction Status Date / Time [place] nut Allergy Intermediate Verified 10/26/23 16:23 animals Allergy Intermediate Uncoded 10/26/23 16:23 Review of Systems Status of ROS: Reports: 6 or more systems reviewed and unremarkable except as noted in History and below [facility] Social History Smoking Status: Former smoker Do you use any of these nicotine containing products: None Second hand tobacco smoke exposure: No How often do you have a drink containing alcohol: never How often do you have six or more drinks on one occasion: Never AUDIT-C Alcohol total score: 0 Non-prescribed substance use: denies use service: Yes Exam Const: Vital Signs, click to edit/add: Vital Signs - 24 hr 10/01/24 13:41 10/01/24 13:53 10/01/24 13:57 Temperature 98.6 F Pulse Rate 93 Pulse Rate [Pulse Oximeter] 80 Respiratory Rate 18 Blood Pressure [Ri ght Upper Arm] 147/71 H Pulse Oximetry 95 94 96 Oxygen Delivery Me thod Room Air 10/01/24 14:00 10/01/24 14:15 10/01/24 14:30 Temperature Pulse Rate 81 86 83 Pulse Rate [Pulse Oximeter] Respiratory Rate Blood Pressure [Ri ght Upper Arm] Pulse Oximetry 95 94 94 Oxygen Delivery Me thod 10/01/24 14:45 10/01/24 15:00 10/01/24 16:30 Temperature Pulse Rate 76 88 Pulse Rate [Pulse Oximeter] 82 Respiratory Rate 18 Blood Pressure [Ri ght Upper Arm] 138/83 Pulse Oximetry 94 96 98 Oxygen Delivery Me thod Room Air This 89-year-old male is alert, interactive, no apparent distress. Comes in with a walker. He is sitting up on the edge of the bed on arrival. He is alert, interactive, able speak in complete sentences, is speech is normal. Face atraumatic, conjugate gaze, sclera clear. Anterior nares appear normal. Neck is supple, no adenopathy. Lungs actually sound clear, heard some dry fibrotic crackles towards the bases but does not sound wet, no wheezing, no tachypnea, no accessory muscle use. CV is a regular but not fast, do not hear any significant murmur, normal S1-S2. He has got chronic edema underlying his white compression stockings, seems to be symmetrical. Documenting provider has reviewed patient's vital signs: yes Course Course ED Course: Patient is reporting probable acute upper respiratory infection. This certainly sounds like it could be viral, need to consider secondary bacterial infection or atypical pneumonia. It is possible that this could be some congestive heart failure. Will look at some baseline labs, look at his chest x-ray. If chest x-ray showing findings more suggestive of fluid overload, will need to proceed with further labs and cardiac workup. Reevaluation(s) Time of Reevaluation #1: 14:56 Reevaluation #1: Have reviewed with patient his lab results. His C-reactive protein is elevated and unfortunately his portable chest x-ray may be difficult to interpret as he does have a hiatal hernia on the left side. We will proceed with chest CT noncontrast to ensure no secondary bacterial pneumonia that would require antibiotics. Note triple viral swab is negative. Time of Reevaluation #2: 16:34 Reevaluation #2: Did review with patient that his chest CT is showing pneumonia. We reviewed that his amiodarone really limits what we should safely give him. He does not have any allergies to penicillins, will use Augmentin singly for him. Do not feel comfortable putting him on doxycycline, Z-Ismael or Levaquin given the amiodarone usage and potential for QT prolongation and cardiac complications. He does not meet criteria for hospitalization and thus would not be monitored. I feel in this situation that it is best to try the solitary agent of Augmentin. We are going to dispense this 10 day course from [facility]. [facility], reviewed that he would need the antibiotic right away, should not wait for mail order. Vital Signs Vital signs: Initial Vital Signs Temperature 98.6 F 10/01/24 13:41 Temperature Source Temporal Artery Scan 10/01/24 13:41 Pulse Rate 80 10/01/24 13:41 Respiratory Rate 18 10/01/24 13:41 Blood Pressure 147/71 H 10/01/24 13:41 Blood Pressure Mean 96 10/01/24 13:41 Blood Pressure Position Sitting 10/01/24 13:41 Pulse Oximetry 95 10/01/24 13:41 Oxygen Delivery Method Room Air 10/01/24 13:41 Vital Signs Temperature 98.6 F 10/01/24 13:41 Pulse Rate 80 10/01/24 13:41 Respiratory Rate 18 10/01/24 13:41 Blood Pressure 147/71 H 10/01/24 13:41 Pulse Oximetry 95 10/01/24 13:41 Oxygen Delivery Method Room Air 10/01/24 13:41 Temperature 98.6 F 10/01/24 13:41 Pulse Rate 82 10/01/24 16:30 Respiratory Rate 18 10/01/24 16:30 Blood Pressure 138/83 10/01/24 16:30 Pulse Oximetry 98 10/01/24 16:30 Oxygen Delivery Method Room Air 10/01/24 16:30 Medical Decision Making Lab Data Lab results reviewed: Yes I reviewed the patient's lab results Labs: Lab Results 10/01/24 10/01/24 Range/Units 14:00 14:08 WBC 7.46 (4.50-11.00) K/uL RBC 4.05 L (4.30-5.90) m/uL Hgb 12.4 L (13.5-17.5) gm/dL Hct 37.7 (37.0-53.0) % MCV 93 (80-100) fL MCH 31 (26-34) pg MCHC 33 (32-36) gm/dL RDW Coeff of Lety 13.0 (11.5-15.5) % Plt Count 215 (140-440) K/uL Neut % (Auto) 71.5 (42.0-72.0) % Lymph % (Auto) 15.1 L (20-44) % [place] % (Auto) 9.4 (0.0-11.0) % Eos % (Auto) 2.5 (0.0-7.0) % Baso % (Auto) 0.7 (0.0-3.0) % Neut # (Auto) 5.33 (1.7-7.0) K/uL Lymph # (Auto) 1.10 (0.90-2.90) K/uL [place] # (Auto) 0.70 (0.00-0.90) K/UL Eos # (Auto) 0.19 (0.00-0.50) K/uL Baso # (Auto) 0.05 (0.00-0.30) K/uL Abs Immat Gran (auto) 0.06 (0.00-0.30) K/uL Imm/Tot Granulo (auto) 0.8 % Sodium 140 (135-149) mmol/L Potassium 4.3 (3.6-5.1) mmol/L Chloride 108 (96-114) mmol/L Carbon Dioxide 24 (20-32) mmol/L Anion Gap 8 (7-15) mEq/L BUN 20 (7-30) mg/dL Creatinine 0.8 (0.5-1.5) mg/dL Estimated Creat Clear 57.12 Estimated GFR 86 ml/min Glucose 131 H (60-115) mg/dL Calcium 8.9 (8.4-10.6) mg/dL C-Reactive Protein 5.8 H (0.5-1.0) mg/dL SARS-CoV-2 (PCR) Negative SARS-CoV-2 (Negative) Influenza Type A (PCR) Negative PCR FLU A (Negative) Influenza Type B (PCR) Negative PCR FLU B (Negative) RSV (PCR) Negative PCR RSV (Negative) Imaging Data Chest x-ray: Attestation: I have reviewed the pertinent imaging results. Radiologist's impression: Patient: NANDA PANDYA , Facility:?[facility] Patient ID:?[id number] Site Patient ID:?[id number]. Site :?[id number] Study:?XRay-Chest PORTABLE-10/01/2024 2:36:17 PM Ordering Physician:?Kezia Miranda Final Report: INDICATION: Cough. TECHNIQUE: Chest 1 view. COMPARISON: January 24, 2024. FINDINGS: Cardiovascular and mediastinum: Cardiomediastinal silhouette is stable.. Pmhrgsbs-ps-xaxar hiatal hernia projecting in the left lung base. Lungs and pleural spaces: Minimal perihilar interstitial opacities and peribronchial cuffing. Left basilar atelectasis. Blunting of the left CP angle likely related to overlapping hiatal hernia. Small pleural effusion not entirely excluded. No pneumothorax identified. Bones and soft tissues: Unremarkable for age.. IMPRESSION: Minimal perihilar interstitial opacities and peribronchial cuffing, can be seen in the setting of viral infection or airways disease. Moderate hiatal hernia projecting in the medial left lower lung zone. Dictated by Summer Diana MD @ 10/01/2024 3:07:37 PM (Electronic Signature) CT scan - chest: Attestation: I have reviewed the pertinent imaging results. Radiologist's impression: Patient: NANDA PANDYA SR Facility:?[facility] Patient ID:?[id number] Site Patient ID:?[id number]. Site :?[id number] Study:?CT-Chest W/O-10/01/2024 3:39:34 PM Ordering Physician:William Miranda Final Report: INDICATIONS: Cough. Elevated CRP. Shortness of breath. TECHNIQUE: CT chest without contrast. COMPARISON: CT chest abdomen and pelvis 01/24/2024. FINDINGS: No pleural or pericardial effusion. Stable left pleural thickening and calcifications. No pathologic lymphadenopathy. Aortic atherosclerosis and tortuosity. Ascending thoracic aorta measures 4.1 cm. Main pulmonary artery is dilated to 3.3 cm. Stable heart size with coronary artery calcifications. Large hiatal hernia containing the entire stomach, as before. Soft tissues of the thoracic wall are unremarkable. No pneumothorax. Central airways are patent. New ill-defined ground-glass opacities in the right middle lobe. Bilateral subcentimeter nodules measuring up to 7 mm in the right lower lobe are unchanged. Cholelithiasis. Visualized unenhanced upper abdomen is otherwise unremarkable. Degenerative changes of the spine. No acute or suspicious osseous abnormality. IMPRESSION: 1. New ground-glass opacities in the right middle lobe are likely infectious/inflammatory. 2. Stable subcentimeter pulmonary nodules most consistent with a benign etiology. 3. Large hiatal hernia, as before. 4. Additional unchanged findings. Dictated by Gerald Adkins MD @ 10/01/2024 4:20:25 PM Please note that all CT scans at this facility use dose modulation, iterative reconstruction, and/or weight-based dosing when appropriate to reduce radiation dose to as low as reasonably achievable. Dictated by: Gerald Adkins MD @ 10/01/2024 16:20:40 (Electronic Signature) Discharge Plan Discharge Clinical Impression: Community acquired pneumonia Qualifiers: Laterality: right Lung location: middle lobe of lung Qualified Code(s): J18.9 - Pneumonia, unspecified organism Patient Disposition: Home, Self-Care Condition: Stable Instructions: Community Acquired Pneumonia (ED) Additional Instructions: Start Augmentin 875 mg right away, you will take this twice a day for a total of 10 days. Recommend that you schedule follow-up through your primary clinic for recheck within the next week. If at any point you feel you are worsening, develops fevers, have increasing cough or difficulty breathing instead of improving, please return for re-evaluation or seek medical care somewhere. Activity Level: Activity as Tolerated Prescriptions: No Action albuterol 90 mcg/actuation aerosol inhalation amlodipine 5 mg tablet 5 mg PO DAILY Artificial Tears (cmc) 1 % drops 1 drp ophthalmic (eye) DAILY doxazosin 2 mg tablet 2 mg PO DAILY famotidine [Acid Director Of Officiating (famotidine)] 20 mg tablet 20 mg PO DAILY finasteride 1 mg tablet 1 mg PO DAILY fluticasone propion-salmeterol 250-50 mcg/dose blister with device 1 inh inhalation BID losartan [Cozaar] 50 mg tablet 50 mg PO DAILY nystatin 100,000 unit/gram cream 1 applic topical DAILY polyethylene glycol 3350 17 gram/dose powder 4 g PO DAILY tiotropium bromide 18 mcg capsule, w/inhalation device 1 cap inhalation DAILY Rx Instructions: puncture 1 cap using device; one dose = 2 inhalations amiodarone 100 mg tablet 100 mg PO DAILY amiodarone 200 mg tablet 200 mg PO DAILY Follow Up/Referrals: Provider,Not a Local [Non-Staff, Family Practice] Stand Alone Forms: Outcome Referrals Info Instructions
--- NOTE | 2024-10-01 13:57 | CRLHL7_ITS ---
For Patients: As a result of the Century Cures Act, medical imaging exams and procedure reports are released immediately into your electronic medical record. You may view this report before your referring provider. If you have questions, please contact your health care provider. INDICATION: Cough. TECHNIQUE: Chest 1 view. COMPARISON: January 24, 2024. FINDINGS: Cardiovascular and mediastinum: Cardiomediastinal silhouette is stable.. Eamifqbs-iq-yfyay hiatal hernia projecting in the left lung base. Lungs and pleural spaces: Minimal perihilar interstitial opacities and peribronchial cuffing. Left basilar atelectasis. Blunting of the left CP angle likely related to overlapping hiatal hernia. Small pleural effusion not entirely excluded. No pneumothorax identified. Bones and soft tissues: Unremarkable for age.. IMPRESSION: Minimal perihilar interstitial opacities and peribronchial cuffing, can be seen in the setting of viral infection or airways disease. Moderate hiatal hernia projecting in the medial left lower lung zone. Dictated by Summer Diana MD @ 10/01/2024 3:07:37 PM (Electronically Signed)
[2024-10-01 14:15] LABS: Basophils Absolute Auto 0.05 K/uL (0.00-0.30); Basophils Percent Auto 0.7 % (0.0-3.0); Eosinophils Absolute Auto 0.19 K/uL (0.00-0.50); Eosinophils Percent Auto 2.5 % (0.0-7.0); Hematocrit 37.7 % (37.0-53.0); Hemoglobin* 12.4 gm/dL (13.5-17.5); Immature Granulocytes Abs Auto 0.06 K/uL (0.00-0.30); Immature Granulocytes Pct Auto 0.8 %; Lymphocytes Percent Auto 15.1 % (20-44); Mean Corpuscular HGB Conc 33 gm/dL (32-36); Mean Corpuscular Hemoglobin 31 pg (26-34); Mean Corpuscular Volume 93 fL (80-100); Monocytes Percent Auto 9.4 % (0.0-11.0); Neutrophils Absolute Auto 5.33 K/uL (1.7-7.0); Neutrophils Percent Auto 71.5 % (42.0-72.0); Platelet Count* 215 K/uL (140-440); Red Blood Count 4.05 m/uL (4.30-5.90); White Blood Count* 7.46 K/uL (4.50-11.00)
[2024-10-01 14:19] LABS: Slide Review Reflex No
[2024-10-01 14:28] LABS: Chloride* 108 mmol/L (96-114); Potassium* 4.3 mmol/L (3.6-5.1); Sodium* 140 mmol/L (135-149)
[2024-10-01 14:30] LABS: Blood Urea Nitrogen* 20 mg/dL (7-30); Creatinine* 0.8 mg/dL (0.5-1.5); Est. Creatinine Clearance* 57.12; Estimated Glomerular Filt Rate 86 ml/min
[2024-10-01 14:31] LABS: Anion Gap 8 mEq/L (7-15); Calcium* 8.9 mg/dL (8.4-10.6); Carbon Dioxide* 24 mmol/L (20-32); Glucose* 131 mg/dL (60-115)
[2024-10-01 14:34] LABS: C Reactive Protein* 5.8 mg/dL (0.5-1.0)
[2024-10-01 14:53] LABS: PCR FLU A Negative PCR FLU A (Negative); PCR FLU B Negative PCR FLU B (Negative); PCR RSV Negative PCR RSV (Negative); SARS PCR* Negative SARS-CoV-2 (Negative)
--- NOTE | 2024-10-01 14:55 | CRLHL7_ITS ---
For Patients: As a result of the Century Cures Act, medical imaging exams and procedure reports are released immediately into your electronic medical record. You may view this report before your referring provider. If you have questions, please contact your health care provider. INDICATIONS: Cough. Elevated CRP. Shortness of breath. TECHNIQUE: CT chest without contrast. COMPARISON: CT chest abdomen and pelvis 01/24/2024. FINDINGS: No pleural or pericardial effusion. Stable left pleural thickening and calcifications. No pathologic lymphadenopathy. Aortic atherosclerosis and tortuosity. Ascending thoracic aorta measures 4.1 cm. Main pulmonary artery is dilated to 3.3 cm. Stable heart size with coronary artery calcifications. Large hiatal hernia containing the entire stomach, as before. Soft tissues of the thoracic wall are unremarkable. No pneumothorax. Central airways are patent. New ill-defined ground-glass opacities in the right middle lobe. Bilateral subcentimeter nodules measuring up to 7 mm in the right lower lobe are unchanged. Cholelithiasis. Visualized unenhanced upper abdomen is otherwise unremarkable. Degenerative changes of the spine. No acute or suspicious osseous abnormality. IMPRESSION: 1. New ground-glass opacities in the right middle lobe are likely infectious/inflammatory. 2. Stable subcentimeter pulmonary nodules most consistent with a benign etiology. 3. Large hiatal hernia, as before. 4. Additional unchanged findings. Dictated by Gerald Adkins MD @ 10/01/2024 4:20:25 PM Please note that all CT scans at this facility use dose modulation, iterative reconstruction, and/or weight-based dosing when appropriate to reduce radiation dose to as low as reasonably achievable. Dictated by: Gerald Adkins MD @ 10/01/2024 16:20:40 (Electronically Signed)
== END 2024-10-01 17:10 | disposition home or self-care (01) ==
PROVIDERS: Emergency Provider Family Medicine
DX: J18.9 Pneumonia, unspecified organism (principal); R42 Dizziness and giddiness; I49.9 Cardiac arrhythmia, unspecified; R09.81 Nasal congestion; G62.9 Polyneuropathy, unspecified
CPT/HCPCS: 36415; 71045; 71250; 80048; 85025; 86140; 87631; 94761; 99284; 99285

== ENCOUNTER 2025-02-06 00:12 | Emergency (ER) | payer MEDICARE, BC, OTHER, SELFPAY ==
--- OUTSIDE RECORDS SUMMARY | 2025-02-06 00:15 | XMS_ITS | Clinical Summary ---
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 Gender Identity Not on file Sexual Orientation Not on file Obstetrics History Last Filed Vital Signs Vital Sign Reading Time Taken Comments Blood Pressure 132/66 03/22/2016 1:00 PM FINANCIAL SALES ADVISOR manual cuff Pulse 49 03/22/2016 1:00 PM FINANCIAL SALES ADVISOR Temperature 36.5 C (97.7 F) 03/22/2016 1:00 PM FINANCIAL SALES ADVISOR Respiratory Rate - - Oxygen Saturation 99% 03/22/2016 1:0 0 PM FINANCIAL SALES ADVISOR Inhaled Oxygen Concentration - - Weight 121.1 kg (267 lb) 03/22/2016 1:0 0 PM FINANCIAL SALES ADVISOR declined to remove shoes Height 182.9 cm (6') 07/09/2008 2:56 PM CDT Body Mass Index 36.21 07/09/2008 2:56 PM CDT Plan of Treatment Health Maintenance Due Date Last Done Comments Tetanus booster 1948 Depression screening for age 12+ 1949 BMI (ht and wt on same day) for age 18+ 1955 Pneumococcal series for age 50+ (1 of 1 - PCV) 1987 Zoster (shingles) series for age 50+ (1 of 2) 1987 Medicare Wellness for age 65+ 2002 RSV vaccine for adults or (1 - 1-dose 75+ series) 2012 COVID-19 vaccine series ( - season) 2024 Influenza Vaccine (#1) 2024 Hepatitis B series for 19+ Aged Out N o longer eligible based on patient's age to complete this topic Insurance [employer] [place] [id number] Advance Directives Documents on File Type Date Recorded Patient Director Money Expl anation Healthcare Directive 06/24/2016 9:35 AM ARNALDO, 06/18/2016 Care Teams Blending Tank Tender Helper Relationship Specialty Start Date End Date Kehinde Raman MD [address] [place] [address] PCP - General 06/04/08
[2025-02-06 00:26] VITALS: BP 137/102; PULSE 82; RESP 20; TEMP 36.3; O2SAT 97; BMI 35.3
--- NOTE | 2025-02-06 00:36 | ED.WOUNDLAC ---
HPI - Wound/Laceration General Time Seen by Provider: 00:36 Date Seen: 02/06/25 Chief Complaint: Laceration/Wound Stated Complaint: L leg wound leaking Time Seen by Provider: 02/06/25 00:36 Source: patient Mode of arrival: ambulatory History of Present Illness HPI narrative: Daniel is a 89-year-old male presents to the emergency department from home with his daughter for evaluation of leg wound. Patient reports he recently had a a cardiac procedure/ablation approximately 1 week ago at the [place]. Patient states he is on chronic anticoagulation, reports that he was wearing his compression stockings all day but forgot to wear them today. Patient noted tonight when he was sleeping he felt the bed wet and looked in realize that a blister on his left lower extremity popped. Patient reports that he was concerned that he may start bleeding out from his wound since he is on a blood thinner. Patient reports otherwise he is doing well from his procedure, has no other complaints. Patient denies any weakness, dizziness, chest pain, shortness of breath, fever, chills. Related Data Home Medications ?Medication ?Instructions ?Recorded ?Confirmed albuterol 90 mcg/actuation aerosol 90 mcg inhalation TID PRN 01/24/24 02/06/25 inhaler amlodipine 5 mg tablet 5 mg PO DAILY 01/24/24 02/06/25 carboxymethylcellulose sodium 1 % 1 drp ophthalmic (eye) DAILY 01/24/24 02/06/25 eye drops (Artificial Tears (carboxymethylcellulose)) doxazosin 2 mg tablet 2 mg PO QHS 01/24/24 02/06/25 famotidine 20 mg tablet (Acid 20 mg PO Q12H 01/24/24 02/06/25 Direct Service Provider (famotidine)) finasteride 1 mg tablet 5 mg PO DAILY 01/24/24 02/06/25 fluticasone 250 mcg-salmeterol 50 1 inh inhalation BID 01/24/24 02/06/25 mcg/dose blistr powdr for inhalation losartan 50 mg tablet (Cozaar) 50 mg PO DAILY 01/24/24 02/06/25 nystatin 100,000 unit/gram topical 1 applic topical DAILY 01/24/24 02/06/25 cream polyethylene glycol 3350 17 17 g PO DAILY 01/24/24 02/06/25 gram/dose oral powder tiotropium bromide 18 mcg capsule 1 cap inhalation DAILY 01/24/24 02/06/25 with inhalation device acetaminophen 325 mg tablet 650 mg PO Q8H pain 02/06/25 02/06/25 albuterol sulfate 90 mcg/actuation 2 puff inhalation Q6H PRN breathing 02/06/25 02/06/25 aerosol inhaler emollient (Vanicream topical) 1 applic topical BID 02/06/25 02/06/25 fluticasone propionate 50 1 spray intranasal BID PRN 02/06/25 02/06/25 mcg/actuation nasal spray,suspension (Flonase Allergy Relief) Allergies Allergy/AdvReac Type Severity Reaction Status Date / Time [place] nut Allergy Intermediate Verified 10/26/23 16:23 animals Allergy Intermediate Uncoded 10/26/23 16:23 Review of Systems Narrative: Past medical history, past surgical history, medications, allergies, family history, and social history were reviewed with the patient. No additional pertinent items. A medically appropriate review of systems was performed with pertinent positives and negatives noted in HPI, all other systems negative. [facility] Social History Smoking Status: Former smoker Do you use any of these nicotine containing products: None Second hand tobacco smoke exposure: No How often do you have a drink containing alcohol: never How often do you have six or more drinks on one occasion: Never AUDIT-C Alcohol total score: 0 Non-prescribed substance use: denies use service: Yes Exam Narrative: Exam Narrative: General: Afebrile, no acute distress HEENT: Normocephalic, atraumatic, conjunctiva normal. MMM Neck: non-tender, supple Cardio: regular rate. regular rhythm Resp: Normal work of breathing, no respiratory distress, lungs clear bilaterally, no wheezing, rhonchi, rales Chest/Back: no visual signs of trauma, no midline tenderness, no CVA tenderness Abdomen: soft, non distension, no tenderness, no peritoneal signs Neuro: alert and fully oriented. CN II-XII grossly intact. Grossly normal strength and sensation in all extremities. MSK: Bilateral lower extremity with symmetrical edema no deformities. Normal range of motion Integumentary/Skin: popped blister to the distal aspect of his inner left lower extremity just above ankle with no erythema, no purulent or bloody drainage Psych: normal affect, normal behavior Const: Vital Signs, click to edit/add: Vital Signs - 24 hr 02/06/25 00:26 Temperature 97.4 F L Pulse Rate [Left P ulse Oximeter] 82 Respiratory Rate 20 Blood Pressure [Ri ght Upper Arm] 137/102 H Pulse Oximetry 97 Oxygen Delivery Me thod Room Air Course Vital Signs Vital signs: Initial Vital Signs Temperature 97.4 F L 02/06/25 00:26 Temperature Source Temporal Artery Scan 02/06/25 00:26 Pulse Rate 82 02/06/25 00:26 Respiratory Rate 20 02/06/25 00:26 Blood Pressure 137/102 H 02/06/25 00:26 Blood Pressure Mean 113 H 02/06/25 00:26 Blood Pressure Position Semi-Fowlers 02/06/25 00:26 Pulse Oximetry 97 02/06/25 00:26 Oxygen Delivery Method Room Air 02/06/25 00:26 Vital Signs Temperature 97.4 F L 02/06/25 00:26 Pulse Rate 82 02/06/25 00:26 Respiratory Rate 20 02/06/25 00:26 Blood Pressure 137/102 H 02/06/25 00:26 Pulse Oximetry 97 02/06/25 00:26 Oxygen Delivery Method Room Air 02/06/25 00:26 Temperature 97.4 F L 02/06/25 00:26 Pulse Rate 82 02/06/25 00:26 Respiratory Rate 20 02/06/25 00:26 Blood Pressure 137/102 H 02/06/25 00:26 Pulse Oximetry 97 02/06/25 00:26 Oxygen Delivery Method Room Air 02/06/25 00:26 MDM - Wound/Laceration MDM Narrative Medical decision making narrative: Daniel is a 89-year-old male presents to the emergency department from home with his daughter for evaluation of leg wound. Upon arrival patient is nontoxic appearing, afebrile, no distress. Patient here with blister which popped/opened to his left lower extremity, no surrounding erythema, no purulent drainage, no bleeding. Patient does have some bilateral lower extremities edema which she has been wearing compression stockings for an elevating when he can. I discussed and reassured patient low suspicious that this will start bleeding out. Wound was irrigated, xeroform dressing applied. Patient and daughter feel comfortable with discharge, will continue compression stockings, elevation, and close follow-up with his primary care provider/wound care/cardiology. Strict return precautions discussed. Patient and daughter understand agrees the plan. Discharge Plan Discharge Clinical Impression: Visit for wound check Patient Disposition: Home, Self-Care Condition: Stable Additional Instructions: Please follow-up with your primary care provider and tube closing machine operator as previously directed. Please keep legs elevated while at rest and use compression stockings as directed. Please make sure you keep your wound/blister clean and dry. Return to the emergency department if you develop high fever, severe pain, significant increase in swelling, redness, or purulent drainage from your wound. It was a pleasure taking care of you today. We hope you feel better soon. Prescriptions: No Action albuterol 90 mcg/actuation aerosol 90 mcg inhalation TID PRN Rx Instructions: inhale two puffs by inhalation every 4 hours as needed for breathing amlodipine 5 mg tablet 5 mg PO DAILY Artificial Tears (cmc) 1 % drops 1 drp ophthalmic (eye) DAILY doxazosin 2 mg tablet 2 mg PO QHS famotidine [Acid Direct Service Provider (famotidine)] 20 mg tablet 20 mg PO Q12H finasteride 1 mg tablet 5 mg PO DAILY fluticasone propion-salmeterol 250-50 mcg/dose blister with device 1 inh inhalation BID losartan [Cozaar] 50 mg tablet 50 mg PO DAILY nystatin 100,000 unit/gram cream 1 applic topical DAILY polyethylene glycol 3350 17 gram/dose powder 17 g PO DAILY tiotropium bromide 18 mcg capsule, w/inhalation device 1 cap inhalation DAILY Rx Instructions: puncture 1 cap using device; one dose = 2 inhalations acetaminophen 325 mg tablet 650 mg PO Q8H fluticasone propionate [Flonase Allergy Relief] 50 mcg/actuation spray,suspension 1 spray intranasal BID PRN Rx Instructions: administer into each nostril emollient [Vanicream] Cream 1 applic topical BID Rx Instructions: apply thin layer topically twice a day for dry skin albuterol sulfate 90 mcg/actuation HFA aerosol inhaler 2 puff inhalation Q6H PRN (Reason: breathing) Follow Up/Referrals: Isra Sandoval MD [Primary Care Provider, Family Practice] Stand Alone Forms: [facility] Info Instructions
== END 2025-02-06 01:15 | disposition home or self-care (01) ==
LOC: ED 01:04
PROVIDERS: Emergency Provider Emergency Medicine
DX: Z48.01 Encounter for change or removal of surgical wound dressing (principal); Z79.01 Long term (current) use of anticoagulants; Z98.890 Other specified postprocedural states
CPT/HCPCS: 99283; 99284

== ENCOUNTER 2025-02-12 19:30 | Emergency (ER) | payer MEDICARE, BC, OTHER, SELFPAY ==
--- OUTSIDE RECORDS SUMMARY | 2025-02-12 19:32 | XMS_ITS | Clinical Summary ---
Author Organization [facility] Address [address] [place] [id number] Care Team Providers Care Wound Care Specialist Name Role Phone Kehinde Raman MD Primary Care Provider [phone] Allergies Active Allergy Reactions Criticality Noted Date [...] on file Legal Sex Male 6:31 AM [employer] Gender Identity Not on file Sexual Orientation Not on file Obstetrics History Last Filed Vital Signs Vital Sign Reading Time Taken Comments Blood Pressure 132/66 03/22/2016 1:00 PM [employer] manual cuff Pulse 49 03/22/2016 1:00 PM [employer] Temperature 36.5 C (97.7 F) 03/22/2016 1:00 PM [employer] Respiratory Rate - - Oxygen Saturation 99% 03/22/2016 1:0 0 PM [employer] Inhaled Oxygen Concentration - - Weight 121.1 kg (267 lb) 03/22/2016 1:0 0 PM 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
[2025-02-12 19:37] VITALS: BP 119/66; PULSE 96; RESP 20; TEMP 36.5; O2SAT 96; BMI 35.3
--- NOTE | 2025-02-12 20:50 | ED.GENADULT ---
HPI - General Adult General Time Seen by Provider: 20:50 Date Seen: 02/12/25 Chief complaint: Skin/Abscess/Foreign Body Stated complaint: L leg wound Time Seen by Provider: 02/12/25 20:49 Source: patient, family, RN notes reviewed and old records reviewed Mode of arrival: ambulatory Limitations: no limitations History of Present Illness HPI narrative: 89-year-old male who comes in today with concern for leg wound. Patient was initially seen for this in the emergency department on February 06, subsequently followed up at the [place] in was discharged 4 days ago. Sounds like during that hospitalization in addition to wound care he had ablation for atrial fibrillation and Watchman procedure. He does remain on anticoagulation. He has not had any wound care since he was discharged on February 09, he was to have home nursing to look at this but apparently that was not arranged. He denies fever, chills, nausea, vomiting. Related Data Home Medications ?Medication ?Instructions ?Recorded ?Confirmed albuterol 90 mcg/actuation aerosol 90 mcg inhalation TID PRN 01/24/24 02/06/25 inhaler amlodipine 5 mg tablet 5 mg PO DAILY 01/24/24 02/06/25 carboxymethylcellulose sodium 1 % 1 drp ophthalmic (eye) DAILY 01/24/24 02/06/25 eye drops (Artificial Tears (carboxymethylcellulose)) doxazosin 2 mg tablet 2 mg PO QHS 01/24/24 02/06/25 famotidine 20 mg tablet (Acid 20 mg PO Q12H 01/24/24 02/06/25 Sticker Operator (famotidine)) finasteride 1 mg tablet 5 mg PO DAILY 01/24/24 02/06/25 fluticasone 250 mcg-salmeterol 50 1 inh inhalation BID 01/24/24 02/06/25 mcg/dose blistr powdr for inhalation losartan 50 mg tablet (Cozaar) 50 mg PO DAILY 01/24/24 02/06/25 nystatin 100,000 unit/gram topical 1 applic topical DAILY 01/24/24 02/06/25 cream polyethylene glycol 3350 17 17 g PO DAILY 01/24/24 02/06/25 gram/dose oral powder tiotropium bromide 18 mcg capsule 1 cap inhalation DAILY 01/24/24 02/06/25 with inhalation device acetaminophen 325 mg tablet 650 mg PO Q8H pain 02/06/25 02/06/25 albuterol sulfate 90 mcg/actuation 2 puff inhalation Q6H PRN breathing 02/06/25 02/06/25 aerosol inhaler emollient (Vanicream topical) 1 applic topical BID 02/06/25 02/06/25 fluticasone propionate 50 1 spray intranasal BID PRN 02/06/25 02/06/25 mcg/actuation nasal spray,suspension (Flonase Allergy Relief) Allergies Allergy/AdvReac Type Severity Reaction Status Date / Time [place] nut Allergy Intermediate Verified 10/26/23 16:23 animals Allergy Intermediate Uncoded 10/26/23 16:23 [facility] Social History Smoking Status: Former smoker Do you use any of these nicotine containing products: None Second hand tobacco smoke exposure: No How often do you have a drink containing alcohol: never How often do you have six or more drinks on one occasion: Never AUDIT-C Alcohol total score: 0 Non-prescribed substance use: denies use service: Yes Exam Narrative: Exam Narrative: General: well nourished , NAD Head: Atraumatic and normocephalic ENT: External ears and external nose are normal Eyes: Conjunctiva clear, pupils are equal reactive, external ocular motions are intact Neck: Full spontaneous range of motion of the neck Lungs: No respiratory distress Musculoskeletal: No tenderness or deformity Neurologic: No gross focal neurologic deficits Skin: Chronic venous stasis changes of the lower extremities bilaterally. On the posterior lower leg there is a dressing that was adherent to wound but this was removed gently with soaking with normal saline. There was a 4 cm x 9.5 cm wound from a ruptured blister with granulation at the base, no foul odor or discharge, no surrounding erythema. Psych: Mood and affect are appropriate Const: Vital Signs, click to edit/add: Vital Signs - 24 hr 02/12/25 19:37 Temperature 97.7 F Pulse Rate [Pulse Oximeter] 96 Respiratory Rate 20 Blood Pressure [Ri ght Upper Arm] 119/66 Pulse Oximetry 96 Oxygen Delivery Me thod Room Air Course Course ED Course: Reviewed most recent emergency department visit from February 06 when patient was seen with a leg wound, at that time noted to have bilateral lower extremity edema with a ruptured blister on the distal aspect of his left lower leg with no erythema or drainage, patient was vitally stable at that time with no evidence of infection. Patient presents today for wound care of a ruptured blister on the left lower leg that occurred about a week ago. He has not had any wound care for this for 4 days, and current dressings been in place since that time. On exam, there is a ruptured blister on the back of the left lower leg, no surrounding erythema, nose foul odor, granulation at the base. This will be redressed, labs are ordered and plan for discharge with follow-up with wound care clinic. Reevaluation(s) Time of Reevaluation #1: 22:19 Reevaluation #1: Labs independently interpreted by me with normal white blood cell count, hemoglobin 11.1 which is stable for the patient, normal basic panel other than glucose 126, CRP 1.9 which is minimally elevated, improved from September when it was 5.8. Patient is stable for discharge with follow-up with wound care clinic. Vital Signs Vital signs: Initial Vital Signs Temperature 97.7 F 02/12/25 19:37 Temperature Source Temporal Artery Scan 02/12/25 19:37 Pulse Rate 96 02/12/25 19:37 Respiratory Rate 20 02/12/25 19:37 Blood Pressure 119/66 02/12/25 19:37 Blood Pressure Mean 83 02/12/25 19:37 Blood Pressure Position Sitting 02/12/25 19:37 Pulse Oximetry 96 02/12/25 19:37 Oxygen Delivery Method Room Air 02/12/25 19:37 Vital Signs Temperature 97.7 F 02/12/25 19:37 Pulse Rate 96 02/12/25 19:37 Respiratory Rate 20 02/12/25 19:37 Blood Pressure 119/66 02/12/25 19:37 Pulse Oximetry 96 02/12/25 19:37 Oxygen Delivery Method Room Air 02/12/25 19:37 Temperature 97.7 F 02/12/25 19:37 Pulse Rate 96 02/12/25 19:37 Respiratory Rate 20 02/12/25 19:37 Blood Pressure 119/66 02/12/25 19:37 Pulse Oximetry 96 02/12/25 19:37 Oxygen Delivery Method Room Air 02/12/25 19:37 Medical Decision Making Lab Data Labs: Lab Results 02/12/25 Range/Units 21:40 WBC 5.74 (4.50-11.00) K/uL RBC 3.59 L (4.30-5.90) m/uL Hgb 11.1 L (13.5-17.5) gm/dL Hct 34.0 L (37.0-53.0) % MCV 95 (80-100) fL MCH 31 (26-34) pg MCHC 33 (32-36) gm/dL RDW Coeff of [place]y 13.5 (11.5-15.5) % Plt Count 305 (140-440) K/uL Neut % (Auto) 70.6 (42.0-72.0) % Lymph % (Auto) 14.6 L (20-44) % [place] % (Auto) 11.8 H (0.0-11.0) % Eos % (Auto) 1.6 (0.0-7.0) % Baso % (Auto) 0.7 (0.0-3.0) % Neut # (Auto) 4.05 (1.7-7.0) K/uL Lymph # (Auto) 0.80 L (0.90-2.90) K/uL [place] # (Auto) 0.70 (0.00-0.90) K/UL Eos # (Auto) 0.09 (0.00-0.50) K/uL Baso # (Auto) 0.04 (0.00-0.30) K/uL Abs Immat Gran (auto) 0.04 (0.00-0.30) K/uL Imm/Tot Granulo (auto) 0.7 % Sodium 134 L (135-149) mmol/L Potassium 4.4 (3.6-5.1) mmol/L Chloride 104 (96-114) mmol/L Carbon Dioxide 24 (20-32) mmol/L Anion Gap 6 L (7-15) mEq/L BUN 24 (7-30) mg/dL Creatinine 1.0 (0.5-1.5) mg/dL Estimated Creat Clear 57.12 Estimated GFR 73 ml/min Glucose 126 H (60-115) mg/dL Calcium 9.2 (8.4-10.6) mg/dL C-Reactive Protein 1.9 H (0.5-1.0) mg/dL Discharge Plan Discharge Clinical Impression: Visit for wound check, Chronic venous stasis dermatitis of both lower extremities Patient Disposition: Home, Self-Care Condition: Stable Instructions: Venous Insufficiency (DC) Additional Instructions: Wear compression stocks during the day as you are able, remove these at night. Follow-up with wound care clinic [phone] Level: Activity as Tolerated Discharge Diet: Regular Prescriptions: No Action albuterol 90 mcg/actuation aerosol 90 mcg inhalation TID PRN Rx Instructions: inhale two puffs by inhalation every 4 hours as needed for breathing amlodipine 5 mg tablet 5 mg PO DAILY Artificial Tears (cmc) 1 % drops 1 drp ophthalmic (eye) DAILY doxazosin 2 mg tablet 2 mg PO QHS famotidine [Acid Sticker Operator (famotidine)] 20 mg tablet 20 mg PO Q12H finasteride 1 mg tablet 5 mg PO DAILY fluticasone propion-salmeterol 250-50 mcg/dose blister with device 1 inh inhalation BID losartan [Cozaar] 50 mg tablet 50 mg PO DAILY nystatin 100,000 unit/gram cream 1 applic topical DAILY polyethylene glycol 3350 17 gram/dose powder 17 g PO DAILY tiotropium bromide 18 mcg capsule, w/inhalation device 1 cap inhalation DAILY Rx Instructions: puncture 1 cap using device; one dose = 2 inhalations acetaminophen 325 mg tablet 650 mg PO Q8H fluticasone propionate [Flonase Allergy Relief] 50 mcg/actuation spray,suspension 1 spray intranasal BID PRN Rx Instructions: administer into each nostril emollient [Vanicream] Cream 1 applic topical BID Rx Instructions: apply thin layer topically twice a day for dry skin albuterol sulfate 90 mcg/actuation HFA aerosol inhaler 2 puff inhalation Q6H PRN (Reason: breathing) Follow Up/Referrals[facility] [Provider Group, [facility]ound Care] - 2 Days Isra Sandoval MD [Primary Care Provider, Family Practice] Stand Alone Forms: [facility] Info Instructions
[2025-02-12 22:01] LABS: Hematocrit* 34.0 % (37.0-53.0); Hemoglobin* 11.1 gm/dL (13.5-17.5); Immature Granulocytes Abs Auto 0.04 K/uL (0.00-0.30); Immature Granulocytes Pct Auto 0.7 %; Mean Corpuscular HGB Conc 33 gm/dL (32-36); Mean Corpuscular Hemoglobin 31 pg (26-34); Mean Corpuscular Volume 95 fL (80-100); RDW Coefficient of Variation % 13.5 % (11.5-15.5); Red Blood Count* 3.59 m/uL (4.30-5.90); White Blood Count* 5.74 K/uL (4.50-11.00)
[2025-02-12 22:06] LABS: Chloride* 104 mmol/L (96-114); Potassium* 4.4 mmol/L (3.6-5.1); Sodium* 134 mmol/L (135-149)
[2025-02-12 22:07] LABS: Lymphocytes Absolute Auto 0.80 K/uL (0.90-2.90); Slide Review Reflex No
[2025-02-12 22:09] LABS: Anion Gap 6 mEq/L (7-15); Blood Urea Nitrogen* 24 mg/dL (7-30); Carbon Dioxide* 24 mmol/L (20-32); Creatinine* 1.0 mg/dL (0.5-1.5); Est. Creatinine Clearance* 57.12; Estimated Glomerular Filt Rate 73 ml/min
[2025-02-12 22:10] LABS: Calcium* 9.2 mg/dL (8.4-10.6); Glucose* 126 mg/dL (60-115)
== END 2025-02-12 22:32 | disposition home or self-care (01) ==
LOC: ED 22:07
PROVIDERS: Emergency Provider Family Medicine
DX: I87.2 Venous insufficiency (chronic) (peripheral) (principal)
CPT/HCPCS: 36415; 80048; 85025; 86140; 99283; 99284